=== PATIENT | female | born 1970 | race Caucasian/White ===

== ENCOUNTER → 2019-11-13 15:42 | Outpatient (CLI) | payer MEDICAID, SELFPAY ==
[2019-11-13 15:58] LABS: Basophils # 0.1 K/mm3 (0-0.2); Eosinophils # 0.1 K/mm3 (0.0-0.4); Eosinophils % 2.2 % (0.1-12.0); Hematocrit 42.1 % (37.0-47.0); Hemoglobin 14.4 g/dL (12.2-16.2); Lymphocytes # 1.9 K/mm3 (0.7-4.5); Lymphocytes % 32.2 % (10-50); Mean Corpuscular HGB Conc 34.2 g/dL (31.8-35.4); Mean Corpuscular Volume 90.6 fl (81-99); Mean Platelet Volume 9.2 fl (7.4-10.4); Monocytes # 0.2 K/mm3 (0.1-1.0); Monocytes % 3.5 % (1.7-9.3); Neutrophils # 3.6 K/mm3 (1.8-7.8); Neutrophils % 61.2 % (37.0-80.0); Platelet Count 300 K/mm3 (142-424); Red Blood Count 4.64 M/mm3 (4.20-5.40); Red Cell Distribution Width 13.4 % (11.5-17.5); White Blood Count 5.9 K/mm3 (4.8-10.8)
[2019-11-13 16:02] LABS: Alanine Aminotransferase 22 U/L (12-78); Albumin Level 4.3 g/dl (3.5-5.0); Albumin/Globulin Ratio 1.2 (1.1-1.8); Alkaline Phosphatase 91 U/L (38-126); Anion Gap 14.3 mEq/L (5-15); Aspartate Amino Transferase 31 U/L (14-36); Blood Urea Nitrogen 15 mg/dl (7-17); Calcium 9.8 mg/dl (8.4-10.2); Carbon Dioxide 27 mmol/L (22.0-30.0); Chloride 97 mmol/L (98-107); Chol/HDL Ratio 6.3 (1-3.5); Cholesterol 323 mg/dl (140-200); Estimated Glomerular Filt Rate 59 ml/min (>60); GFR (African American) 71 ML/MIN (>60); Globulin 3.5 g/dL (1.3-3.2); Glucose 396 mg/dl (74-100); HDL Cholesterol 51 mg/dl (40-60); Potassium 4.3 mmoL/L (3.5-5.1); Sodium 134 mmol/L (136-145); Total Protein,Serum 7.8 g/dl (6.3-8.2); Triglycerides 481 mg/dl (30-150)
[2019-11-13 16:12] LABS: Direct LDL Cholesterol 165.67 mg/dL (100-129)
[2019-11-13 16:18] LABS: 25-OH Vitamin D, Total 18.6 ng/mL (30-100)
[2019-11-13 16:19] LABS: Free T4 (Free Thyroxine) 1.31 ng/dl (0.78-2.19)
[2019-11-13 16:34] LABS: Thyroid Stimulating Hormone 1.87 uIU/mL (0.465-4.68)
[2019-11-13 17:30] LABS: Hemoglobin A1C 13.3 % (4.0-6.0)
== END ==
PROVIDERS: Visit Provider Emergency Medicine
DX: E11.9 Type 2 diabetes mellitus without complications (principal); E55.9 Vitamin D deficiency, unspecified; Z79.4 Long term (current) use of insulin
CPT/HCPCS: 80053; 80061; 82306; 83036; 84439; 84443; 85025

== ENCOUNTER → 2019-12-18 07:03 | Outpatient (CLI) | payer MEDICAID, SELFPAY ==
--- NOTE | 2019-12-18 07:05 | CA_ITS ---
APPROVED REPORT Pantomimist: EDWIN Laterality: Bilateral Indications: CP, DM, HTN, hyperlipidemia, WARREN Risk Factors Hypertension: Hyperlipidemia Diabetes Doppler Spectral Velocity Analysis ECA (R) 93.40/17.10 cm/s ECA (L) 108.00/17.10 cm/s dICA (R) 68.40/28.30 cm/s dICA (L) 64.30/21.40 cm/s Griselda (R) 73.80/30.50 cm/s Griselda (L) 70.30/28.30 cm/s pICA (R) 47.60/17.10 cm/s pICA (L) 67.70/19.70 cm/s dCCA (R) 78.10/25.10 cm/s dCCA (L) 84.80/20.60 cm/s pCCA (R) 74.30/20.90 cm/s pCCA (L) 95.10/23.10 cm/s Vert (R) 66.00/24.00 cm/s Vert (L) 52.30/14.60 cm/s ICA/CCA 0.95 ICA/CCA 0.83 Findings Duplex evaluation demonstrates stenosis of the right proximal internal carotid artery <20% Duplex evaluation demonstrates stenosis of the left proximal internal carotid artery <20% Conclusion Duplex evaluation demonstrates stenosis of the right proximal internal carotid artery <20% Duplex evaluation demonstrates stenosis of the left proximal internal carotid artery <20% Electronically signed by : Frandy Mandel MD 12/18/2019 16:41:16
--- NOTE | 2019-12-18 07:05 | CA_ITS ---
APPROVED REPORT EXAM: Comprehensive 2D, Doppler, and color-flow Echocardiogram Photography Intern: Marycarmen Horowitz RT(R) Ht: 5 ft 2 in Wt: 170lbs BSA: 1.78 BP: 121/76 mmHg Indications: CP, MURMUR, HTN, DM, WARREN, hyperlipidemia 2D Dimensions LVOT 1.92 cm (M/F) 1.5-2.5 M-Mode Dimensions RVDd 2.32 cm (0.9-2.6) LVDd 3.64 cm (3.5-5.7) LVDs 2.86 cm (3.5-5.7) IVSd 1.32 cm (0.6-1.1) PWd 0.96 cm (0.6-1.1) EF (Teich) 44.40% FS 21.40% EDV (Teich) 55.90 mL ESV (Teich) 31.10 mL LV Diastology E/A Ratio 0.78 Mitral Valve MV A Velocity 97.00 (40-130 cm/s) Left Ventricle Left atrium is mildly enlarged, left ventricle is normal size, mild concentric left ventricular hypertrophy, visually estimated ejection fraction 55% with no regional wall motion abnormality, grade 1 diastolic dysfunction seen with tissue Doppler evidence of raise left atrial pressure. Right Ventricle Right atrium and right ventricle are normal size and contractility. Aortic Valve Aortic valve is minimally thickened and fibrosed. There is no aortic stenosis or aortic insufficiency. Mitral Valve Mitral valve is grossly normal, there is mild mitral regurgitation. Tricuspid Valve Tricuspid valve is grossly normal, there is mild tricuspid regurgitation, tricuspid regurgitation jet velocity is inadequate for calculation of the right ventricular systolic pressure. Pulmonic Valve Pulmonic valve is poorly visualized. Great Vessels Aortic root is normal size. Pericardium No significant pericardial effusion noted. Conclusion 1. Mildly enlarged left atrium, normal left ventricular size, mild concentric left ventricular hypertrophy, visually estimated ejection fraction 55% with no regional wall motion abnormality, grade 1 diastolic dysfunction seen with tissue Doppler evidence of raise left atrial pressure. 2. Mild mitral and tricuspid regurgitation. 3. No significant pericardial effusion noted. Electronically signed by : Shane Soto, 12/18/2019 13:22:44
--- NOTE | 2019-12-18 07:09 | CA_ITS ---
APPROVED REPORT Exam: Pharmacologic Technologist: Peg Mera, Ht: 5 ft 2 in Wt: 172 lbs BSA: 1.79 m2 HR: 84 bpm BP: 175/97 mmHg Rhythm: NSR,NON-SPECIFIC ST-T ABNS INFERIORLY 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: Diabetic ??? Insulin, HTN, Hyperlipidemia Medications: Gabapentin,,,,, Atorvastatin,,,,, Vit D3,,,,, Diclofenac,,,,, LanTUS,,,,, Humalog,,,,, Allergies: ASA,LATEX Cardiac Risk Factors: HTN, Hyperlipidemia, Diabetes (insulin), FHX of CAD Stress Test Details Test: LEXISCAN HR Resting HR: 90 bpm Max Heart Rate (APMHR): 170 bpm Max HR Achieved: 109 bpm Target HR (85% APMHR): 144 bpm % of APMHR: 64 Recovery HR: 92 bpm BP Resting BP: 175.0/97.0 mmHg Max BP: 175.0/97.0 mmHg Recovery BP: 157.0/87.0 mmHg ECG Resting ECG: NSR,NON-SPECIFIC ST-T ABNS INFERIORLY Clinical Exercise duration: 04:14 min Highest Stage Achieved: Stress ECG Conclusion DURING INFUSION PATIENT HAD MALAISE AND HEADACHE. NO CHEST PAIN. NO ARRHYTHMIAS/ECTOPY. NO SIGNIFICANT ST-T CHANGES. UNREMARKABLE LEXISCAN STRESS. MYOVIEW IMAGES REPORTED SEPARATELY. Test Summary . . Cardiolite injected . . . . Stop exercise at 04:14 . . . . Electronically signed by : Shane Soto, 12/18/2019 12:16:33
--- NOTE | 2019-12-18 07:09 | NM_ITS ---
APPROVED REPORT Exam: Nuclear Stress Test Indication: C.P., DM, HYPERLIPIDEMIA, HTN, SOB, MURMUR Patient Location: Outpatient Stress Tech: Cherry Mera MD Tech:CALLIE Bah RT(R)(N) Ht: 5 ft 2 in Wt: 170 lbs Bra Size: 38D HR: 84 bpm BP: 175/97 mmHg BSA: 1.78 m2 BMI: 31.0 History: C.P., DM, HYPERLIPIDEMIA, HTN, SOB, MURMUR Procedure: Patient received a 0.4 mg of intravenous Lexiscan, resting heart rate 84 bpm, resting blood pressure 175/97 mmHg, with Lexiscan maximum heart rate achived was 108 bpm which is Less than 85 % of the maximum predicted heart rate and blood pressure was 154/95 mmHg. With Lexiscan, patient denied any complaint of chest pain. Electrocardiogram Resting electrocardiogram showed sinus rhythm nonspecific ST-T changes, with Lexiscan there is less than 1.[address] segment depression noted from the baseline EKG. The EKG portion of the Lexiscan Myoview is nondiagnostic. Cardiac Stress and Resting SPECT Images: Cardiac Stress and Resting SPECT images were obtained using technetium 99m Myoview 31.7 mCi stress and 9.83 mCi at rest. Gated SPECT with analysis of segmental wall motion and calculation of the ejection fraction also done. Cardiac stress and resting SPECT images show a mild fixed defect in the anterior wall which is likely secondary to soft tissue attenuation, no reversible ischemia seen, however there is transient ischemic dilatation of the left ventricle seen raising the concerns for presence of balanced ischemia. Computer derived ejection fraction is 50% with no regional wall motion abnormality, right ventricle is normal size and contractility. Conclusion: 1. The EKG portion of the Lexiscan Myoview is nondiagnostic. 2. No scintigraphic evidence of reversible ischemia seen, computer derived ejection fraction is 50% with no regional wall motion abnormality, right ventricle is normal size and contractility. There is transient ischemic dilatation of the left ventricle seen, raising concern for presence of balanced ischemia. 3. Abnormal Lexiscan Myoview study. Electronically signed by : Shane Soto, 12/18/2019 12:24:43
== END ==
PROVIDERS: PCP Emergency Medicine; Visit Provider Internal Medicine Cardiovascular Disease
DX: R07.9 Chest pain, unspecified (principal); R06.00 Dyspnea, unspecified; R01.1 Cardiac murmur, unspecified; E10.9 Type 1 diabetes mellitus without complications; E78.5 Hyperlipidemia, unspecified; G62.9 Polyneuropathy, unspecified; H35.00 Unspecified background retinopathy; I10 Essential (primary) hypertension; N28.9 Disorder of kidney and ureter, unspecified; Z79.4 Long term (current) use of insulin
CPT/HCPCS: 78452; 93017; 93306; 93880; A9502; J2785

== ENCOUNTER → 2019-12-21 08:20 | Outpatient (CLI) | payer SELFPAY | PROVIDERS: PCP Emergency Medicine; Visit Provider Internal Medicine Cardiovascular Disease | DX: Z13.6 Encounter for screening for cardiovascular disorders (principal) ==

== ENCOUNTER → 2019-12-29 14:24 | Outpatient (CLI) | payer SELFPAY ==
--- NOTE | 2019-12-29 14:28 | CT_ITS ---
PROCEDURE: CT HEART W CALCIUM SCORE CLINICAL HISTORY: SCREENING COMPARISON: No exams were available for comparison TECHNIQUE: Axial images obtained with sagittal and coronal reformats. All CT scans at the facility use one or more dose reduction, viz: automated exposure control, ma/kV adjustment per patient size (including targeted exams where dose is matched to indication, i.e. head), or iterative reconstruction technique. FINDINGS: The coronary artery calcium score is 05/09/1983 indicating extensive calcific plaque burden with very cardiovascular disease risk. Incidental note is made of minimal pericardial thickening anteriorly. There is some mild scarring or atelectatic change in bases. IMPRESSION: Extensive calcific plaque burden with very cardiovascular disease risk Dictated by: Frandy Mandel MD 12/30/2019 06:51 Frandy Mandel MD in [place] 12/30/2019 06:51
== END ==
PROVIDERS: PCP Emergency Medicine; Visit Provider Internal Medicine Cardiovascular Disease
DX: I10 Essential (primary) hypertension (principal); Z82.49 Family history of ischemic heart disease and other diseases of the circulatory system
CPT/HCPCS: 75571

== ENCOUNTER 2019-12-31 08:30 | Day surgery (SDC) | payer MEDICAID, SELFPAY ==
[2019-12-31] VITALS (11 sets, daily range): BP systolic 89–152; BP diastolic 50–94; PULSE 77–98; RESP 16–18; TEMP 36.6; O2SAT 89–99; BMI 31.1
--- NOTE | 2019-12-31 | IR_ITS ---
APPROVED REPORT Patient Location: Outpatient PROCEDURES Left heart catheterization Left ventriculogram Selective coronary angiogram INDICATION High risk abnormal Myoview, Angina pectoris Informed consent was obtained prior to the procedure. COMPLICATIONS NONE Estimated Blood Loss: LESS THAN 10 ML TECHNIQUE One percent lidocaine used to anesthetize the right anterior aspect of the wrist. The right radial artery was accessed via the Seldinger technique. A 6 [place] sheath was placed in the right radial artery. 2.5 mg of verapamil, 800 mcg of nitroglycerin, 1mg Lidocaine and 5000 U Heparin were given through the arterial sheath. The trap catheter was also used to perform left heart catheterization, left ventriculogram and selective coronary angiogram. At the end of the procedure the sheath was removed good hemostasis was achieved using Traclet band, patient was transferred to the postop holding area in stable condition. ANGIOGRAPHIC RESULTS The left main artery Has a distal 30% stenosis The left anterior descending artery Has proximal 50% stenosis followed by mid vessel long 70% stenoses. The entire vessel was small caliber. First diagonal artery has proximal greater than 90% stenosis followed by mid vessel 90% stenosis The circumflex artery Nondominant yet still supplies 2 large obtuse marginal arteries. The proximal circumflex artery has 50% tandem lesions. The large first obtuse marginal artery has a long proximal concentric 90% stenosis. The right coronary artery Is a dominant vessel and has proximal 30% stenosis followed by mid vessel 60% stenosis with 10% diffuse luminal irregularities. Distally a large posterior descending artery has mid vessel 70% stenosis. The [place] ventriculogram reveals Normal 65% The left ventricular end-diastolic pressure 20 mmHg IMPRESSION Severe three-vessel coronary artery disease Normal ejection fraction Elevated LVEDP PLAN 1. Patient requires surgical evaluation 2. Aggressive risk factor modification 3. LDL less than 55 Electronically signed by : Victor M Fan, 12/31/2019 10:34:45
[2019-12-31 09:12] LABS: Basophils % 0.4 % (0.1-2.0); Eosinophils # 0.2 K/mm3 (0.0-0.4); Eosinophils % 3.5 % (0.1-12.0); Hematocrit 39.3 % (37.0-47.0); Hemoglobin 13.6 g/dL (12.2-16.2); Lymphocytes # 1.9 K/mm3 (0.7-4.5); Lymphocytes % 27.7 % (10-50); Mean Corpuscular HGB Conc 34.6 g/dL (31.8-35.4); Mean Corpuscular Hemoglobin 30.8 pg (27.0-31.2); Mean Corpuscular Volume 89.1 fl (81-99); Mean Platelet Volume 8.3 fl (7.4-10.4); Monocytes # 0.3 K/mm3 (0.1-1.0); Monocytes % 4.7 % (1.7-9.3); Neutrophils # 4.4 K/mm3 (1.8-7.8); Neutrophils % 63.7 % (37.0-80.0); Platelet Count 226 K/mm3 (142-424); Red Blood Count 4.41 M/mm3 (4.20-5.40); Red Cell Distribution Width 13.4 % (11.5-17.5); White Blood Count 6.9 K/mm3 (4.8-10.8)
[2019-12-31 09:17] LABS: Anion Gap 16.5 mEq/L (5-15); Blood Urea Nitrogen 22 mg/dl (7-17); Calcium 9.5 mg/dl (8.4-10.2); Carbon Dioxide 26 mmol/L (22.0-30.0); Chloride 100 mmol/L (98-107); Creatinine Clearance Estimated 82 mL/min (50-200); Estimated Glomerular Filt Rate 59 ml/min (>60); GFR (African American) 71 ML/MIN (>60); Glucose 307 mg/dl (74-100); Potassium 4.5 mmoL/L (3.5-5.1); Sodium 138 mmol/L (136-145)
[2019-12-31 09:43] LABS: Coronavirus 19 IgG Antibody Negative (Negative); Coronavirus 19 IgM Antibody Negative (Negative)
== END 2019-12-31 13:38 | disposition home or self-care (01) ==
LOC: CATHLAB 08:33
PROVIDERS: PCP Emergency Medicine; Visit Provider Internal Medicine
DX: I25.118 Atherosclerotic heart disease of native coronary artery with other forms of angina pectoris (principal); R94.30 Abnormal result of cardiovascular function study, unspecified; I10 Essential (primary) hypertension; Z88.8 Allergy status to other drugs, medicaments and biological substances; Z79.4 Long term (current) use of insulin; Z79.02 Long term (current) use of antithrombotics/antiplatelets; Z79.899 Other long term (current) drug therapy; E11.319 Type 2 diabetes mellitus with unspecified diabetic retinopathy without macular edema; E11.42 Type 2 diabetes mellitus with diabetic polyneuropathy
CPT/HCPCS: 80048; 85025; 86328; 93458; 99152; 99153; C1725; C1769; J1644; Q9967

== ENCOUNTER → 2020-01-08 11:53 | Outpatient (CLI) | payer MEDICAID, SELFPAY ==
--- NOTE | 2020-01-08 11:57 | CT_ITS ---
PROCEDURE: CT HEAD/BRAIN WO CON CLINICAL INDICATION: RUE weakness, CVA symptoms COMPARISON: No exams were available for comparison TECHNIQUE: Axial images obtained. All CT scans at the facility use one or more dose reduction, viz: automated exposure control, ma/kV adjustment per patient size (including targeted exams where dose is matched to indication, i.e. head), or iterative reconstruction technique. FINDINGS: No midline shift, mass effect, intracranial hemorrhage, hydrocephalus, or extra-axial fluid collection is evident. There are mild periventricular hypodensities consistent with mild chronic ischemic white matter changes. There is no significant cortical atrophy. The calvarium has an unremarkable appearance. No mastoid effusion. No sinus air-fluid level. IMPRESSION: Minor chronic ischemic white matter changes, no acute intracranial pathology noted Dictated by: Dr. Robert Taylor MD 01/08/2020 12:39 Dr. Robert Taylor MD in [place] 01/08/2020 12:39
== END ==
PROVIDERS: PCP Emergency Medicine; Visit Provider Physician Assistant
DX: R29.898 Other symptoms and signs involving the musculoskeletal system (principal); R29.90 Unspecified symptoms and signs involving the nervous system
CPT/HCPCS: 70450

== ENCOUNTER → 2020-01-15 07:50 | Outpatient (CLI) | payer MEDICAID, SELFPAY ==
--- NOTE | 2020-01-15 07:50 | MM_ITS ---
PROCEDURE: MM DIG SCREENING MAMM BI W/CAD Digital Breast Tomosynthesis Included CLINICAL INDICATION: screening There is a history of breast cancer patient's maternal grandmother. 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 COMPARISON: MG Screening Mamm w/cad from 01/27/2019 TECHNIQUE: Standard CC and MLO images and 3D Tomosynthesis was obtained. R2 CAD reviewed. FINDINGS: Post primarily of fat with minimal scattered fibroglandular densities. There is a stable tiny benign-appearing nodular density near the axillary tail left breast. There is no new or suspicious lesion in either breast and no suspicious microcalcifications. IMPRESSION: Fibrofatty parenchyma with no suspicious lesions seen BI-RAD Category: 2 Benign Finding(s) FOLLOW-UP: 1YR 1 Year Follow-up (A letter has been sent to the patient regarding results of the study.) Dictated by: Dr. Robert Taylor MD 01/21/2020 20:06 Dr. Robert Taylor MD in [place] 01/21/2020 20:06
== END ==
PROVIDERS: PCP Emergency Medicine; Visit Provider Emergency Medicine
DX: Z12.31 Encounter for screening mammogram for malignant neoplasm of breast (principal)
CPT/HCPCS: 77063; 77067

== ENCOUNTER 2023-11-19 16:55 | Outpatient (CLI) | payer OTHER, SELFPAY ==
[2023-11-19 18:10] LABS: Alanine Aminotransferase 21 U/L (12-78); Albumin Level 4.8 g/dl (3.5-5.0); Albumin/Globulin Ratio 1.3 (1.1-1.8); Alkaline Phosphatase 63 U/L (38-126); Anion Gap 17.2 mEq/L (5-15); Aspartate Amino Transferase 27 U/L (14-36); Bilirubin,Total 0.6 mg/dl (0.2-1.3); Blood Urea Nitrogen 28 mg/dl (7-17); Calcium 9.9 mg/dl (8.4-10.2); Carbon Dioxide 22 mmol/L (22.0-30.0); Chloride 106 mmol/L (98-107); Chol/HDL Ratio 5.5 (1-3.5); Cholesterol 285 mg/dl (140-200); Estimated Glomerular Filt Rate 23 ml/min (>60); GFR (African American) 28 ML/MIN (>60); Globulin 3.7 g/dL (1.3-3.2); Glucose 264 mg/dl (74-100); HDL Cholesterol 52 mg/dl (40-60); Potassium 4.2 mmoL/L (3.5-5.1); Sodium 141 mmol/L (136-145); Total Protein,Serum 8.5 g/dl (6.3-8.2); Uric Acid 7.3 mg/dl (2.5-6.2)
[2023-11-19 18:11] LABS: Triglycerides 437 mg/dl (30-150)
[2023-11-19 18:21] LABS: C-Reactive Protein 1.1 mg/L (0-4)
[2023-11-19 18:26] LABS: Free T4 (Free Thyroxine) 1.16 ng/dl (0.78-2.19)
[2023-11-19 18:41] LABS: Thyroid Stimulating Hormone 1.22 uIU/mL (0.465-4.68)
[2023-11-19 19:00] LABS: Vitamin B12 307 pg/mL (239-931)
[2023-11-19 19:01] LABS: Creatinine,Urine Random 239 mg/dL (Not Estab.)
[2023-11-19 19:03] LABS: Hemoglobin A1C 8.1 % (4.0-6.0)
[2023-11-19 19:13] LABS: Microalbumin/Creatinine Ratio 69.5
== END 2023-11-19 23:59 | disposition home or self-care (01) ==
LOC: LAB 16:58
PROVIDERS: Visit Provider Hospitalist
DX: E11.69 Type 2 diabetes mellitus with other specified complication (principal); E78.5 Hyperlipidemia, unspecified; N18.30 Chronic kidney disease, stage 3 unspecified; Z79.85 Long-term (current) use of injectable non-insulin antidiabetic drugs; Z79.4 Long term (current) use of insulin
CPT/HCPCS: 36415; 80053; 80061; 82043; 82306; 82570; 82607; 83036; 84439; 84443; 84550; 86140

== ENCOUNTER 2024-01-31 20:32 | Emergency (ER) | payer OTHER, SELFPAY ==
[2024-01-31] VITALS (7 sets, daily range): BP systolic 90–137; BP diastolic 57–92; PULSE 88–104; RESP 13–20; TEMP 36.9; O2SAT 96–98; BMI 25.1
--- NOTE | 2024-01-31 20:50 | ED_ITS ---
Discharge Plan Disposition Patient Disposition: Home, Self-Care Condition: Good Prescriptions Prescriptions: New ondansetron 4 mg tablet,disintegrating 4 mg PO Q6H PRN (Reason: nausea and vomiting) 5 Days Qty: 30 0RF cefdinir 300 mg capsule 300 mg PO BID 10 Days Qty: 20 0RF No Action insulin lispro [Humalog KwikPen Insulin] 100 unit/mL insulin pen 1 sliding scale dose SUB-Q .S S before meals Ozempic 2 mg/dose (8 mg/3 mL) pen injector 2 mg SQ QWEEK Patient Comments: DIAL AND INJECT 2MG UNDER THE SKIN ONCE WEEKLY sertraline 50 mg tablet 50 mg PO DAILY gabapentin 800 mg tablet 800 mg PO BID 30 Days Qty: 60 1RF insulin aspart U-100 100 unit/mL (3 mL) insulin pen 26 unit SQ BID sodium chloride 1,000 mg tablet,soluble 1,000 mg PO BID PRN (Reason: low BP) Qty: 60 0RF Referrals Follow up/Referrals: Provider,Referral, MD [Referring] - See instructions Activity Restrictions/Add. Instructions Additional Instructions/Restrictions: Take the antibiotics twice per day for the urinary tract infection. If your symptoms do not resolve after 3 full days of antibiotics, please follow-up with your primary care provider. Take the Zofran as needed every 6 hours for nausea or vomiting. Due to your history of type 1 diabetes, is important to stay adequately hydrated and accurately track your blood sugars. Please return to ED if your symptoms worsen, change in location, change in severity, new symptoms develop or if you become concerned for your health. Clinical Impressions Clinical Impression: Gastroenteritis, History of type 1 diabetes mellitus Acute cystitis Qualifiers: Hematuria presence: with hematuria Qualified Code(s): N30.01 - Acute cystitis with hematuria Instructions Patient Instructions: DI for Acute Cystitis, DI for Nausea -- Adult, Nausea and Vomiting-Adult Print Language Print Language: Mozambican Discharge ED Provider: Arina Gasca Adult HPI General Chief complaint: Nausea/Vomiting/Diarrhea Stated complaint: n/v, weak Time Seen by Provider: 01/31/24 20:33 Mode of Arrival: EMS Source of Information: Patient and EMS Limitations: No Limitations Description of Symptoms (Recalled from ER Triage Doc. by RN): Pt presents to ED via EMS for N/V X 1 day. Pt is a diabetic and is also on the liver transplant list. Pt states she's had a fever at home and took ibuprofen and tylenol. Pt is afebrile here. Pt has pain in her kidneys and rates that pain 10/10. Pt states she does not want pain medicine as they make her feel worse. Pt is A&O*4 at this time. History of Present Illness HPI narrative: Janay Head is a 53 y/o female presenting with nausea and vomiting. Patient states she had a fever of 102 ?F today. She feels that her fever broke prior to arrival as now she is all sweaty. Patient had taken Motrin earlier today. Patient states she had 2 episodes of vomiting that were green in appearance and had no blood in them. Patient complaining of bilateral flank pain and is concerned that her kidneys are failing. Patient notes difficulty urinating but has not noticed hematuria or experienced dysuria. Patient denies changes in her bowel movements, shortness of breath, chest pain, headache, rash. Related Data Home Medications ?Medication ?Instructions ?Recorded ?Confirmed insulin lispro 100 unit/mL 1 sliding scale dose SQ .S S 12/03/23 12/03/23 subcutaneous pen (Humalog KwikPen before meals (U-100) Insulin) semaglutide 2 mg/dose (8 mg/3 mL) 2 mg SQ QWEEK 12/03/23 12/03/23 subcutaneous pen injector (Ozempic) sertraline 50 mg tablet 50 mg PO DAILY 12/03/23 12/03/23 insulin aspart U-100 100 unit/mL 26 unit SQ BID 12/04/23 12/04/23 (3 mL) subcutaneous pen Previous Rx's ?Medication ?Instructions ?Recorded gabapentin 800 mg tablet 800 mg PO BID 30 days #60 tabs 12/04/23 sodium chloride 1,000 mg soluble 1,000 mg PO BID PRN low BP #60 tabs 12/16/23 tablet cefdinir 300 mg capsule 300 mg PO BID 10 days #20 caps 01/31/24 ondansetron 4 mg disintegrating 4 mg PO Q6H PRN nausea and 01/31/24 tablet vomiting 5 days #30 tabs Allergies Allergy/AdvReac Type Severity Reaction Status Date / Time atorvastatin Allergy Severe lowers Verified 12/12/23 10:16 blood pressure aspirin [ASPIRIN] Allergy Intermediate I-HIVES Verified 12/03/23 15:50 latex [LATEX] Allergy Unknown RASH, HIVES Verified 12/03/23 15:50 atorvastatin Allergy Severe lowers bp Uncoded 12/12/23 10:16 [facility] Disclaimer: The information contained in this section may have been updated after the patient was seen, as this information can be updated by other users. 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 (Updated 02/01/24 @ 00:04 by Arina Gasca MD) Angina pectoris Social History Smoking Status: Unknown if ever smoked alcohol intake: never substance use type: denies use current occupational status: unemployed Travel in the last 8 weeks: None ROS Obtained: Yes All systems reviewed & no additional complaints except as documented Physical Exam General General appearance: alert and in no apparent distress Eye Eye exam: Present EOMI; Absent scleral icterus ENT ENT exam: Present normal exam Neck Neck exam: Present full ROM Chest Chest inspection: Present symmetric chest wall rise Respiratory Respiratory exam: Present normal lung sounds bilaterally; Absent respiratory distress Cardiovascular Cardiovascular exam: Present regular rate and normal rhythm Abdominal Exam Abdominal exam: Present soft; Absent distention or tenderness Back Exam Back exam: Present full ROM, CVA tenderness (R) and CVA tenderness (L) Neurological Exam Neurological exam: Present alert and oriented X3 Skin Skin exam: Present warm and dry Medical Decision Making Medical Records Screening: Per USPSTF and CDC recommendations, given the prevalence of disease in our region, it is our hospital?s policy to screen for HIV and viral Hepatitis for all patients aged 18 and over and those with ongoing risk factors. Nick Inquiry Pt receiving controlled substance: No Vital Signs: 01/31/24 20:32 01/31/24 21:00 01/31/24 21:30 Temperature 98.5 F Temperature Source Oral Pulse Rate 96 H 93 H Pulse Rate [Right] 104 H Respiratory Rate 14 16 19 Blood Pressure 90/66 L 98/57 L Blood Pressure [Right Arm] 124/87 Blood Pressure Mean 74 64 Blood Pressure Mean [Right Arm] 99 02 Sat by Pulse Oximetry 98 97 97 Oxygen Delivery Method Room Air Room Air Room Air 01/31/24 22:00 01/31/24 22:41 01/31/24 23:00 Temperature Temperature Source Pulse Rate 88 95 H 95 H Pulse Rate [Right] Respiratory Rate 20 13 15 Blood Pressure 113/61 126/84 137/92 H Blood Pressure [Right Arm] Blood Pressure Mean Blood Pressure Mean [Right Arm] 02 Sat by Pulse Oximetry 96 97 97 Oxygen Delivery Method 01/31/24 23:30 02/01/24 00:08 Temperature 97.8 F Temperature Source Pulse Rate 90 92 H Pulse Rate [Right] Respiratory Rate 18 16 Blood Pressure 118/81 130/85 Blood Pressure [Right Arm] Blood Pressure Mean Blood Pressure Mean [Right Arm] 02 Sat by Pulse Oximetry 96 Oxygen Delivery Method Room Air Lab Data Lab Results 01/31/24 20:33: WBC 10.6, RBC 4.67, Hgb 13.7, Hct 41.2, MCV 88.3, MCH 29.3, MCHC 33.2, RDW 13.8, Plt Count 222, MPV 7.8, Neut % (Auto) 82.7 H, Lymph % (Auto) 11.5, Ritchie % (Auto) 4.5, Eos % (Auto) 0.8, Baso % (Auto) 0.4, Neut # (Auto) 8.7 H, Lymph # (Auto) 1.2, Ritchie # (Auto) 0.5, Eos # (Auto) 0.1, Baso # (Auto) 0.0, Sodium 136, Potassium 3.5, Chloride 106, Carbon Dioxide 21 L, Anion Gap 12.5, B UN 30 H, Creatinine 1.70 H, Estimated Creat Clear 38, Estimated GFR 31 L, Est GFR ( Amer) 38 L, Glucose 169 H, Calcium 9.0, Total Bilirubin 0.7, AST 29, ALT 22, Alkaline Phosphatase 49, Total Protein 8.4 H, Albumin 4.8, Globulin 3.6 H, Albumin/Globulin Ratio 1.3, Lipase 194 01/31/24 23:42: Urine Color Yellow, Urine Appearance Clear, Urine pH 5.5, Ur Specific [place] 1.020, Urine Protein 1+ A, Urine Glucose (UA) 2+, Urine Ketones Negative, Urine Blood Trace-i, Urine Nitrate Negative, Urine Bilirubin Negative, Urine Urobilinogen 0.2, Ur Leukocyte Esterase 2+ A, Urine RBC Occasional, Urine WBC Tntc, Ur Squamous Epith Cells 20-50, Urine Bacteria 4+ 01/31/24 20:33 01/31/24 20:33 Orders (Tests/Meds): ED MEDICATIONS Discontinued Medications Generic Name Dose Route Start Last Admin Trade Name Freq PRN Reason Stop Dose Admin Lactated Ringer's 1,000 mls @ 999 mls/hr 01/31/24 20:47 01/31/24 20:52 Lactated Ringer's 1000 Ml Bag IV 01/31/24 21:47 999 mls/hr .Q1H1M ONE Administration Ondansetron HCl 4 mg 01/31/24 20:47 01/31/24 20:51 Ondansetron 4mg/2ml Vial IV 01/31/24 20:48 4 mg ONCE ONE Administration ORDERS Category Date Time Status CBC w/Auto Diff [Complete Blood Count Auto Diff] Stat Lab 01/31/24 20:33 Completed CMP [Comprehensive Metabolic Panel] Stat Lab 01/31/24 20:33 Completed Lipase Stat Lab 01/31/24 20:33 Completed Urinalysis and Microscopic Stat Lab 01/31/24 23:42 Completed Urine Culture Stat Micro 01/31/24 23:42 Received Medical Decision Narrative: Patient is a 53-year-old female presenting with fever and vomiting. Differential diagnosis includes was not limited to, gastroenteritis, ACS, sepsis, DKA, acute cystitis, pyelonephritis, among others. It should be noted the patient's past medical history is significant for type 1 diabetes, renal insufficiency, hypertension which all increase her risk for mortality and increased the complexity of evaluation and management. On initial evaluation, patient is ill-appearing however nontoxic with stable vital signs and is afebrile. Based on exam and history, patient given IV fluids, antiemetics with a laboratory evaluation. Laboratory evaluation demonstrates no leukocytosis, anemia, thrombocytopenia. Creatinine 1.7 which is decreased from 2.2 in mid November. No hypoglycemia or significant hyperglycemia. Lipase within normal limits. Urinalysis significant for 3+ leukocyte esterase, no nitrates. Upon reevaluation, patient has been sleeping and in no distress without the use of pain medication. Patient updated with regards to her findings today and advised that a prescription for Zofran as well as antibiotics for the acute cystitis will be sent to the pharmacy. Patient's symptoms likely secondary to the acute UTI. Patient remained afebrile and hemodynamically stable while in the emergency department. Patient was able to ambulate and tolerate p.o. intake prior to discharge. Return precautions given. Arina Gasca MD PGY-3, Emergency Medicine Critical Care Critical Care Time Critical Care Time: No
[2024-01-31] MEDS: ONDANSETRON 4MG/2ML VIAL 4 MG IV (20:51)
[2024-01-31] MEDS: LACTATED RINGERS 1000ML 1,000 ML 999 ML IV (20:52)
[2024-01-31 20:58] LABS: Albumin Level 4.8 g/dl (3.5-5.0); Chloride 106 mmol/L (98-107); Potassium 3.5 mmoL/L (3.5-5.1); Sodium 136 mmol/L (136-145)
[2024-01-31 21:00] LABS: Blood Urea Nitrogen 30 mg/dl (7-17); Creatinine Clearance Estimated 38 mL/min (50-200); Estimated Glomerular Filt Rate 31 ml/min (>60); GFR (African American) 38 ML/MIN (>60)
[2024-01-31 21:01] LABS: Alanine Aminotransferase 22 U/L (12-78); Albumin/Globulin Ratio 1.3 (1.1-1.8); Alkaline Phosphatase 49 U/L (38-126); Anion Gap 12.5 mEq/L (5-15); Aspartate Amino Transferase 29 U/L (14-36); Bilirubin,Total 0.7 mg/dl (0.2-1.3); Carbon Dioxide 21 mmol/L (22.0-30.0); Globulin 3.6 g/dL (1.3-3.2); Glucose 169 mg/dl (74-100); Lipase 194 U/L (23-300); Total Protein,Serum 8.4 g/dl (6.3-8.2)
[2024-01-31 21:02] LABS: Basophils % 0.4 % (0.1-2.0); Eosinophils # 0.1 K/mm3 (0.0-0.4); Eosinophils % 0.8 % (0.1-12.0); Hematocrit 41.2 % (37.0-47.0); Hemoglobin 13.7 g/dL (12.2-16.2); Lymphocytes # 1.2 K/mm3 (0.7-4.5); Lymphocytes % 11.5 % (10-50); Mean Corpuscular HGB Conc 33.2 g/dL (31.8-35.4); Mean Corpuscular Hemoglobin 29.3 pg (27.0-31.2); Mean Corpuscular Volume 88.3 fl (81-99); Mean Platelet Volume 7.8 fl (7.4-10.4); Monocytes # 0.5 K/mm3 (0.1-1.0); Monocytes % 4.5 % (1.7-9.3); Neutrophils # 8.7 K/mm3 (1.8-7.8); Neutrophils % 82.7 % (37.0-80.0); Platelet Count 222 K/mm3 (142-424); Red Blood Count 4.67 M/mm3 (4.20-5.40); Red Cell Distribution Width 13.8 % (11.5-17.5); White Blood Count 10.6 K/mm3 (4.8-10.8)
[2024-01-31 23:48] LABS: Microscopic, Urine URINE MICROSCOPIC (MICROSCOPIC)
[2024-01-31 23:49] LABS: Appearance,Urine CLEAR (Clear); Bilirubin,Urine Negative (Negative); Blood, Urine TRACE-I (Negative); Color,Urine YELLOW (Yellow); Glucose,Urine (UA) 2+ (Negative); Ketones,Urine Negative (Negative); Leukocyte Esterase,Urine 2+ (Negative); Nitrate,Urine Negative (Negative); PH,Urine 5.5 (5.0-8.5); Protein,Urine 1+ (Negative); Urobilinogen,Urine 0.2 EU/dl (0.2)
[2024-01-31 23:58] LABS: Bacteria,Urine 4+ /lpf; RBC,Urine Occasional #/hpf (0-3); Squamous Epithelial Cell,Urine 20-50 #/hpf (0-5); WBC,Urine TNTC #/hpf (0-3)
[2024-02-01 00:08] VITALS: BP 130/85; PULSE 92; RESP 16; TEMP 36.6; O2SAT 99
--- NOTE | 2024-02-04 08:18 | PC.NURSE ---
urine culture final results discussed with , pt dc with cefdinir, ntd
== END 2024-02-01 00:12 | disposition home or self-care (01) ==
PROVIDERS: Emergency Provider Student in an Organized Health Care Education/Training Program; PCP Internal Medicine
DX: N39.0 Urinary tract infection, site not specified (principal); B96.1 Klebsiella pneumoniae [K. pneumoniae] as the cause of diseases classified elsewhere; R11.2 Nausea with vomiting, unspecified; R50.9 Fever, unspecified; M54.59 Other low back pain; R10.30 Lower abdominal pain, unspecified; K52.9 Noninfective gastroenteritis and colitis, unspecified; E10.9 Type 1 diabetes mellitus without complications; Z79.4 Long term (current) use of insulin; Z79.84 Long term (current) use of oral hypoglycemic drugs
CPT/HCPCS: 80053; 81001; 83690; 85025; 87086; 87088; 87186; 96361; 96374; 99284; J2405; J7120

== ENCOUNTER 2024-03-11 16:10 | Outpatient (CLI) | payer OTHER, SELFPAY ==
[2024-03-11 18:30] LABS: Basophils # 0.1 K/mm3 (0-0.2); Basophils % 0.9 % (0.1-2.0); Eosinophils # 0.1 K/mm3 (0.0-0.4); Eosinophils % 1.8 % (0.1-12.0); Hematocrit 36.5 % (37.0-47.0); Hemoglobin 12.6 g/dL (12.2-16.2); Lymphocytes # 1.9 K/mm3 (0.7-4.5); Lymphocytes % 31.8 % (10-50); Mean Corpuscular HGB Conc 34.5 g/dL (31.8-35.4); Mean Corpuscular Hemoglobin 29.5 pg (27.0-31.2); Mean Corpuscular Volume 85.5 fl (81-99); Mean Platelet Volume 7.6 fl (7.4-10.4); Monocytes # 0.2 K/mm3 (0.1-1.0); Monocytes % 3.9 % (1.7-9.3); Neutrophils # 3.8 K/mm3 (1.8-7.8); Neutrophils % 61.5 % (37.0-80.0); Platelet Count 213 K/mm3 (142-424); Red Blood Count 4.27 M/mm3 (4.20-5.40); Red Cell Distribution Width 14.8 % (11.5-17.5); White Blood Count 6.1 K/mm3 (4.8-10.8)
[2024-03-11 18:49] LABS: Microalbumin/Creatinine Ratio 140.5
[2024-03-11 18:58] LABS: Hemoglobin A1C 9.2 % (4.0-6.0)
[2024-03-11 18:59] LABS: Creatinine,Urine Random 108 mg/dL (Not Estab.)
[2024-03-11 20:39] LABS: Albumin Level 4.5 g/dl (3.5-5.0); Chloride 100 mmol/L (98-107); Sodium 136 mmol/L (136-145)
[2024-03-11 20:42] LABS: Alanine Aminotransferase 17 U/L (12-78); Aspartate Amino Transferase 23 U/L (14-36); Bilirubin,Total 0.6 mg/dl (0.2-1.3); Blood Urea Nitrogen 27 mg/dl (7-17); Estimated Glomerular Filt Rate 28 ml/min (>60); GFR (African American) 33 ML/MIN (>60)
[2024-03-11 20:43] LABS: Albumin/Globulin Ratio 1.5 (1.1-1.8); Alkaline Phosphatase 45 U/L (38-126); Calcium 9.1 mg/dl (8.4-10.2); Carbon Dioxide 25 mmol/L (22.0-30.0); Globulin 3.1 g/dL (1.3-3.2); Glucose 282 mg/dl (74-100); Total Protein,Serum 7.6 g/dl (6.3-8.2)
[2024-03-11 21:18] LABS: HIV (1&2) Antibody Rapid NONREACTIVE (NONREACTIVE)
[2024-03-13 05:12] LABS: HBsAg Screen Negative (Negative); HCV Ab Non Reactive (Non Reactive); Hep A Ab, IGM Negative (Negative); Hep B Core Ab, IgM Negative (Negative)
== END 2024-03-11 23:59 | disposition home or self-care (01) ==
LOC: LAB.DROPOF 03-12 09:16
PROVIDERS: PCP Internal Medicine; Visit Provider Internal Medicine
DX: E10.65 Type 1 diabetes mellitus with hyperglycemia (principal); E66.9 Obesity, unspecified; I10 Essential (primary) hypertension; N28.9 Disorder of kidney and ureter, unspecified; I25.118 Atherosclerotic heart disease of native coronary artery with other forms of angina pectoris
CPT/HCPCS: 80053; 80074; 82043; 82570; 83036; 85025; 87389

== ENCOUNTER 2024-03-25 07:41 | Outpatient (CLI) | payer OTHER, SELFPAY ==
--- NOTE | 2024-03-25 07:46 | CA_ITS ---
FINAL REPORT TECHNIQUE: Ultrasound images of the kidneys were obtained. Duplex Doppler of the renal arteries, RAR and RI also obtained. Spectral analysis was performed. CLINICAL HISTORY: CAD, CKDIII, Hypotension, DM COMPARISON: None FINDINGS: Aortic velocity is measured at 85 cm/sec. The right kidney measures 9.1 cm in length. No hydronephrosis, cortical thinning, or mass. RAR is 0.66-0.75. Peak systolic velocity is 70 cm/sec. RI is 0.89. No evidence of renal artery stenosis or chronic renal disease. The left kidney measures 9.8 cm in length. No hydronephrosis, cortical thinning, or mass. RAR is 0.73-0.86. Peak systolic velocity is 337 cm/sec. RI is 4.0. High-grade stenosis distal left renal artery. IMPRESSION: No evidence of renal artery stenosis or chronic renal disease on the right. High-grade stenosis distal left renal artery. Recommend CTA to further characterize. Reviewed, Interpreted and Dictated by Santos Hendrickson MD Transcribed by Ashanti Hernandez Authenticated and [facility]
--- NOTE | 2024-03-25 08:20 | US_ITS ---
FINAL REPORT CLINICAL HISTORY: N18.4 - Chronic kidney disease, stage 4 (severe) COMPARISON: None FINDINGS: RENAL ULTRASOUND Ultrasound images of the kidneys were obtained. Limited images of the liver parenchyma demonstrates normal echogenicity. The right kidney measures 9.8 cm in length. There is an echogenic shadowing focus in the right kidney measuring 9 mm, likely stone. There is no hydronephrosis. The left kidney measures 9.8 cm in length. It is normal echogenicity. There is no hydronephrosis. IMPRESSION: Probable right renal stone. Reviewed, Interpreted and Dictated by Santos Hendrickson MD Transcribed by Ashanti Hernandez Authenticated and [facility]
== END 2024-03-25 23:59 | disposition home or self-care (01) ==
LOC: RT 07:42
PROVIDERS: PCP Internal Medicine; Visit Provider Internal Medicine
DX: N18.4 Chronic kidney disease, stage 4 (severe) (principal)
CPT/HCPCS: 76770; 93976

== ENCOUNTER 2024-04-07 08:24 | Outpatient (CLI) | payer OTHER, SELFPAY ==
--- NOTE | 2024-04-07 08:24 | CT_ITS ---
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 History of 3v-CABG (DUARTE to LAD, SVG to OM2, SVG to distal PDA) TECHNIQUE Image Acquisition: A 128 slice MDCT scanner ([employer] View) was used for data acquisition. A noncontrast coronary calcium scan was performed. A CT attenuation threshold of 130 Hounsfield units (HU) was used for the detection of calcium in contiguous voxels of 1 sq mm in area to be counted as individual lesions. Bolus tracking in the ascending aorta with a threshold of 180 HU was performed. Immediately afterwards, ECG synchronized cardiac CT was then performed from the cardiac base to apex using retrospective gating with ECG tube current modulation. A total of 85 mL of Isovue 370 mg/mL contrast medium was administered at 5 mL/sec followed by a saline flush using a biphasic injection protocol. A tube voltage of 120 KVp was used. The patient received the following medications prior to the cardiac CT. 150 mg of oral metoprolol 5 mg of intravenous metoprolol 15 mg of oral ivabradine 0.8 mg of sublingual nitroglycerin The average heart rate at the time of acquisition was 60 bpm and regular. Image Reconstruction Transaxial images were reconstructed at 0.67 mm slide thickness. Data was reviewed interactively on an advanced workstation capable of 2 and 3-dimensional displays in all conventional reconstruction formats, including multiplanar reformations, maximum intensity projections, curved multiplanar reformations, and volume rendered reconstructions. When applicable, selected routine images describing the relevant coronary anatomy and pathology were saved and sent to PACS. Complications None Technical Quality Overall image quality was fair. Coronary artery opacification was suboptimal. Total DLP (Dose-Length Product) is 1033.6 mGy-cm. The reported value represents the total of one or more individual components during the CT acquisition of this date and at this time, and as such, the same value may appear in more than one CT report depending on the interpreting/reporting physicians. COMPARISON None FINDINGS CT Coronary Calcium Scoring is not performed in the setting of known prior history of CAD and 3v-CABG. The interpretation of the calcium heart score is based on the following continuum*: 0 = no calcified plaque detected (risk of coronary artery disease is very low ??? less than 5%) 1-10 = calcium detected in extremely minimal levels (risk of coronary diseases is still low ??? less than 10%) 11-100 = mild levels of plaque detected with certainty (mild or minimal narrowing of heart arteries is likely) 101-400 = definite,at least moderate levels of plaque detected (relatively high risk of a heart attack within 3-5 years) >401-999 = extensive levels of plaque detected (high risk of heart attack, high levels of vascular disease are present, high likelihood of at least one significant coronary narrowing) *The calcium heart score quantifies the burden of coronary calcification/plaque in the coronary arteries. The calcium heart score is not able to evaluate the presence or burden of non-calcified (i.e. soft) plaque. Coronary CT Angiography The coronary arterial system is right dominant. Quantitative Stenosis Grading: Left Main (LM): The left main originates normally from the left sinus of Valsalva. The LM bifurcates into the left anterior descending artery and left circumflex artery. There is mixed calcified/noncalcified plaque in the distal LM, with < 25% luminal stenosis. Left Anterior Descending (LAD) and Diagonal Branches: The LAD gives off 3 diagonal branch(es). There is mixed calcified/noncalcified plaque in the proximal and mid LAD segments, with up to 70-90% luminal stenosis. There is no evidence of LAD-myocardial bridge. Left Circumflex (LCX) and Obtuse Marginals (OM): The LCX gives off 2 Obtuse Marginal (OM) branch(es). There is mixed calcification in the proximal LCx, OM1, and OM 2 segments, with up to 70-90% luminal stenosis noted proximally. The proximal portion of the of the OM2 segment is likely chronically totally occluded. Right Coronary Artery (RCA): The RCA originates normally from the right sinus of Valsalva. The RCA gives off a posterior descending artery (PDA) and posterolateral (PL) branches. There is mixed calcified/noncalcified plaque along the proximal and mid RCA segments, with up to 70-90% luminal stenosis. CABG Grafts: DUARTE to LAD: The distal DUARET segment has calcified plaque along its course, with indeterminate degree of luminal stenosis. The ostial and proximal segments are not visualized in the study. SVG to OM2: There is no contrast opacification of the SVG graft, suggestive of likely total occlusion ostially (aortic stump only visualized). SVG to PDA: The SVG is patent with no evidence of atherosclerosis. The anastomosis site at distal PDA is patent. Non-Coronary Cardiac Findings: Analysis of the left ventricular (LV) structure and function was performed after 3-D reconstruction of the LV from axial images, with user-corrected automatic contouring for assessment of LV volumes and user-defined reconstruction from oblique planes for measurement of 3-D cardiac structure and function. -The left ventricle systolic function is normal. Septal hypokinesis is present. -There is no left atrial appendage filling defect. Two right pulmonary veins and two left pulmonary veins drain normally into the left atrium. -No pericardial thickening or calcification. -Central and branch pulmonary arteries in the [id number] are unremarkable. -Thoracic aorta within the visualized thoracic aortic-branches in the [id number] is unremarkable. Extracardiac Structures No significant extra-cardiac findings. Note, however, that this study is focused on the cardiac findings. IMPRESSION -Overall, this CCTA is nondiagnostic in the setting of incomplete evaluation of the DUARTE grafts, as well as difficult imaging with suboptimal image quality suboptimal IV opacification. -CT Coronary Calcium Scoring is not performed in the setting of known prior history of CAD and 3v-CABG. -Prior history of 3v-CABG (DUARTE to LAD, SVG to OM2, and SVG to distal PDA). Severe multivessel coronary disease of the coquille vessels evidence of significant flow-limiting atherosclerosis of the coronary arteries. -Moderate to severe calcification of the DUARTE to LAD graft (note that the proximal to mid DUARTE segments are not visualized in the study), as well as likely total occlusion of the SVG-to-OM2 at the ostial level (aortic stump). -CAD-RADS 5. Management recommendations per ACC/AHA guidelines*, as clinically appropriate. -The left ventricle systolic function is normal. Septal hypokinesis is present. *Recommendations: CAD RADS 0: Reassurance. Consider non-atherosclerotic causes of chest pain. CAD RADS 1: Consider non-atherosclerotic causes of chest pain. Consider preventive therapy and risk factor modification. CAD RADS 2: Consider non-atherosclerotic causes of chest pain. Consider preventive therapy and risk factor modification, particularly for patients with nonobstructive plaque in multiple segments. CAD RADS 3: Consider further functional testing. Consider symptom-guided anti-ischemic and preventive pharmacotherapy as well as risk factor modification per published guideline statements. CAD RADS 4A: Consider further functional testing or invasive coronary angiography with revascularization per published guideline statements. Consider symptom-guided anti-ischemic and preventive pharmacotherapy as well as risk factor modification per published guideline statements. CAD RADS 4B: Invasive coronary angiography recommended with revascularization per published guideline statements. Consider symptom-guided anti-ischemic and preventive pharmacotherapy as well as risk factor modification per published guideline statements. CAD RADS 5: Consider invasive angiography and/or viability assessment with revascularization per published guideline statements. Consider symptom-guided anti-ischemic and preventive pharmacotherapy as well as risk factor modification per published guideline statements. CRITICAL RESULT None COMMUNICATION Per this written report The coronary and cardiac findings of this CCTA were reviewed, reported, and signed by Jared Ortiz MD (Customer Care Manager) Conclusion Electronically signed by : Tomasa Ortiz MD 04/20/2024 13:14:01
[2024-04-07 08:44] VITALS: BMI 24.7
[2024-04-07 08:47] VITALS: BP 145/98; PULSE 93; RESP 18; O2SAT 99
[2024-04-07 08:58] LABS: Chloride 103 mmol/L (98-107); Potassium 4.5 mmoL/L (3.5-5.1); Sodium 138 mmol/L (136-145)
[2024-04-07 09:01] LABS: Blood Urea Nitrogen 29 mg/dl (7-17); Creatinine Clearance Estimated 38 mL/min (50-200); Estimated Glomerular Filt Rate 31 ml/min (>60); GFR (African American) 38 ML/MIN (>60)
[2024-04-07 09:02] LABS: Anion Gap 16.5 mEq/L (5-15); Calcium 9.3 mg/dl (8.4-10.2); Carbon Dioxide 23 mmol/L (22.0-30.0); Glucose 314 mg/dl (74-100)
[2024-04-07] MEDS: IVABRADINE HCL 7.5MG TABLET *IVABRADINE+METOPROLOL REGIMINE 15 MG PO (09:31)
[2024-04-07] MEDS: METOPROLOL TARTRATE 50MG TABLET *IVABRADINE+METOPROLOL REGIMINE 50 MG PO (09:31)
[2024-04-07] MEDS: METOPROLOL TARTRATE 25MG TABLET *IVABRADINE+METOPROLOL REGIMINE 25 MG PO (09:32)
[2024-04-07] MEDS: 0.9 % SODIUM CHLORIDE 1000ML 1,000 ML 999 ML IV (09:33)
[2024-04-07] MEDS: METOPROLOL TARTRATE 50MG TABLET *IVABRADINE+METOPROLOL REGIMINE 75 MG PO (10:34)
[2024-04-07 11:10] VITALS: BP 135/87; PULSE 67; RESP 18; O2SAT 100
[2024-04-07] MEDS: NITROGLYCERIN 0.4MG SL TABLET 0.8 MG SL (11:10)
[2024-04-07 11:15] VITALS: BP 117/71; PULSE 68; RESP 18; O2SAT 100
[2024-04-07] MEDS: METOPROLOL TARTRATE 5MG/5ML VIAL *IVABRADINE+METOPROLOL REGIMINE 5 MG IV (11:15)
[2024-04-07 11:20] VITALS: BP 116/69; PULSE 66; RESP 18; O2SAT 97
[2024-04-07 11:25] VITALS: BP 91/60; PULSE 64; RESP 18; O2SAT 98
[2024-04-07] MEDS: SODIUM CHLORIDE 0.9% 10ML SYR (RAD ONLY) 10 ML IV (11:26)
[2024-04-07] MEDS: IOPAMIDOL-370 (76%);100ML BOTTLE 85 ML IV (11:26)
[2024-04-07] MEDS: 0.9 % SODIUM CHLORIDE 50 ML VIAL IV (11:26)
== END 2024-04-07 11:52 | disposition home or self-care (01) ==
PROVIDERS: PCP Internal Medicine; Visit Provider Internal Medicine
DX: I25.118 Atherosclerotic heart disease of native coronary artery with other forms of angina pectoris (principal)
CPT/HCPCS: 75574; 80048; J7030; Q9967

== ENCOUNTER 2024-08-14 13:42 | Outpatient (CLI) | payer OTHER, SELFPAY ==
[2024-08-14 18:09] LABS: Basophils % 0.5 % (0.1-2.0); Eosinophils # 0.1 K/mm3 (0.0-0.4); Eosinophils % 1.7 % (0.1-12.0); Hemoglobin 13.6 g/dL (12.2-16.2); Lymphocytes # 1.8 K/mm3 (0.7-4.5); Lymphocytes % 23.5 % (10-50); Mean Corpuscular Hemoglobin 28.9 pg (27.0-31.2); Mean Corpuscular Volume 84.9 fl (81-99); Mean Platelet Volume 9.9 fl (7.4-10.4); Monocytes # 0.4 K/mm3 (0.1-1.0); Monocytes % 4.8 % (1.7-9.3); Neutrophils # 5.2 K/mm3 (1.8-7.8); Neutrophils % 69.2 % (37.0-80.0); Nucleated Red Blood Cells # 0 10^3/uL; Nucleated Red Blood Cells % 0 %; Platelet Count 253 K/mm3 (142-424); Red Blood Count 4.71 M/mm3 (4.20-5.40); Red Cell Distribution Width 13.2 % (11.5-17.5); Red Cell Distribution Width-SD 40.6 fL; White Blood Count 7.6 K/mm3 (4.8-10.8)
[2024-08-14 18:56] LABS: Alanine Aminotransferase 17 U/L (12-78); Albumin Level 4.4 g/dl (3.5-5.0); Albumin/Globulin Ratio 1.3 (1.1-1.8); Alkaline Phosphatase 60 U/L (38-126); Anion Gap 18.1 mEq/L (5-15); Aspartate Amino Transferase 23 U/L (14-36); Bilirubin,Total 0.5 mg/dl (0.2-1.3); Blood Urea Nitrogen 21 mg/dl (7-17); Calcium 9.3 mg/dl (8.4-10.2); Carbon Dioxide 24 mmol/L (22.0-30.0); Chloride 102 mmol/L (98-107); Estimated Glomerular Filt Rate 33 ml/min (>60); GFR (African American) 40 ML/MIN (>60); Globulin 3.5 g/dL (1.3-3.2); Glucose 114 mg/dl (74-100); Potassium 4.1 mmoL/L (3.5-5.1); Sodium 140 mmol/L (136-145); Total Protein,Serum 7.9 g/dl (6.3-8.2)
== END 2024-08-14 23:59 | disposition home or self-care (01) ==
LOC: LAB.DROPOF 08-16 13:42
PROVIDERS: PCP Family Medicine; Visit Provider Family Medicine
DX: R11.2 Nausea with vomiting, unspecified (principal); R51.9 Headache, unspecified
CPT/HCPCS: 80053; 85025; 86140

== ENCOUNTER 2024-08-26 13:54 | Outpatient (CLI) | payer OTHER, SELFPAY ==
--- NOTE | 2024-08-26 14:00 | MM_ITS ---
PROCEDURE INFORMATION: Exam: MG Bilateral Screening 3D Mammography Exam date and time: 08/26/2024 1:59 PM Age: 54 years old Clinical indication: Screening examination TECHNIQUE: Imaging protocol: Bilateral Screening tomosynthesis and 2D mammography including computer-aided detection (CAD) when performed. COMPARISON: 1. MG MM DIG SCREENING MAMM BI W/CAD 01/15/2020 8:26 AM 2. MG Screening Mamm w/cad 01/27/2019 3:04 PM FINDINGS: MAMMOGRAPHY: Breast composition: There are scattered areas of fibroglandular density. Mass: None. Architectural distortion: None. Calcifications: No suspicious calcifications. Asymmetric density: None. Skin thickening: None. Axillary adenopathy: None. IMPRESSION: No mammographic evidence of malignancy. Annual screening is recommended unless otherwise clinically indicated. ASSESSMENT: BI-RADS Category 1: Negative.
[2024-08-26 15:15] LABS: Cholesterol 249 mg/dl (140-200); Triglycerides 162 mg/dl (30-150); VLDL Cholesterol 32 mg/dL (0-40)
[2024-08-26 15:16] LABS: Chol/HDL Ratio 4.7 (1-3.5); HDL Cholesterol 53 mg/dl (40-60)
[2024-08-26 15:26] LABS: Direct LDL Cholesterol 143.51 mg/dL (100-129)
[2024-08-26 15:44] LABS: Hemoglobin A1C 6.9 % (4.0-6.0)
[2024-08-26 15:58] LABS: Thyroid Stimulating Hormone 1.61 uIU/mL (0.465-4.68)
== END 2024-08-26 23:59 | disposition home or self-care (01) ==
PROVIDERS: PCP Family Medicine; Visit Provider Family Medicine
DX: Z12.31 Encounter for screening mammogram for malignant neoplasm of breast (principal); R51.9 Headache, unspecified; R11.2 Nausea with vomiting, unspecified; E87.1 Hypo-osmolality and hyponatremia; I12.9 Hypertensive chronic kidney disease with stage 1 through stage 4 chronic kidney disease, or unspecified chronic kidney disease; E11.22 Type 2 diabetes mellitus with diabetic chronic kidney disease; N18.4 Chronic kidney disease, stage 4 (severe); G62.9 Polyneuropathy, unspecified; E78.5 Hyperlipidemia, unspecified; Z86.73 Personal history of transient ischemic attack (TIA), and cerebral infarction without residual deficits; Z79.4 Long term (current) use of insulin; Z79.84 Long term (current) use of oral hypoglycemic drugs; Z79.85 Long-term (current) use of injectable non-insulin antidiabetic drugs
CPT/HCPCS: 36415; 77063; 77067; 80061; 83036; 84443

== ENCOUNTER 2024-09-04 13:04 | Outpatient (CLI) | payer OTHER, SELFPAY ==
[2024-09-04 14:13] LABS: Blood Urea Nitrogen 25 mg/dl (7-17); Estimated Glomerular Filt Rate 27 ml/min (>60); GFR (African American) 33 ML/MIN (>60)
--- NOTE | 2024-09-04 14:33 | CT_ITS ---
FINAL REPORT TECHNIQUE: Axial CT images were performed through the head. Coronal reformatted images were submitted. This study was performed with techniques to keep radiation doses as low as reasonably achievable (ALARA). Individualized dose reduction techniques using automated exposure control or adjustment of mA and/or kV according to the patient's size were employed. CLINICAL HISTORY: history of stroke COMPARISON: none FINDINGS: The ventricles are normal in size. There is no evidence of hemorrhage. There is no mass or edema identified. There is no abnormal extra-axial fluid seen. There is extensive mucoperiosteal thickening and air-fluid level in the right cell of the sphenoid sinus consistent with acute and chronic sphenoid sinusitis. IMPRESSION: No acute intracranial process. Acute and chronic sphenoid sinusitis. Reviewed, Interpreted and Dictated by Santos Hendrickson MD Transcribed by Ashanti Hernandez Authenticated and [facility]
== END 2024-09-04 23:59 | disposition home or self-care (01) ==
LOC: RAD 13:04
PROVIDERS: PCP Family Medicine; Visit Provider Family Medicine
DX: R51.9 Headache, unspecified (principal); R11.2 Nausea with vomiting, unspecified; Z86.73 Personal history of transient ischemic attack (TIA), and cerebral infarction without residual deficits
CPT/HCPCS: 36415; 70450; 82565; 84520

== ENCOUNTER 2024-09-16 16:05 | Outpatient (CLI) | payer OTHER, SELFPAY ==
[2024-09-16 19:52] LABS: Albumin Level 4.1 g/dl (3.5-5.0); Chloride 107 mmol/L (98-107); Sodium 137 mmol/L (136-145)
[2024-09-16 19:55] LABS: Alanine Aminotransferase 22 U/L (12-78); Albumin/Globulin Ratio 1.4 (1.1-1.8); Alkaline Phosphatase 53 U/L (38-126); Aspartate Amino Transferase 41 U/L (14-36); Bilirubin,Total 0.7 mg/dl (0.2-1.3); Blood Urea Nitrogen 23 mg/dl (7-17); Carbon Dioxide 20 mmol/L (22.0-30.0); Estimated Glomerular Filt Rate 39 ml/min (>60); GFR (African American) 47 ML/MIN (>60); Globulin 2.9 g/dL (1.3-3.2); Glucose 250 mg/dl (74-100)
== END 2024-09-16 23:59 | disposition home or self-care (01) ==
LOC: LAB.DROPOF 09-18 13:04
PROVIDERS: PCP Family Medicine; Visit Provider Family Medicine
DX: G43.909 Migraine, unspecified, not intractable, without status migrainosus (principal); I95.9 Hypotension, unspecified
CPT/HCPCS: 80053

== ENCOUNTER 2024-10-05 14:00 | Outpatient (CLI) | payer OTHER, SELFPAY ==
[2024-10-05 18:31] LABS: Anion Gap 10.7 mEq/L (5-15); Blood Urea Nitrogen 20 mg/dl (7-17); Calcium 8.6 mg/dl (8.4-10.2); Carbon Dioxide 30 mmol/L (22.0-30.0); Chloride 100 mmol/L (98-107); Estimated Glomerular Filt Rate 33 ml/min (>60); GFR (African American) 40 ML/MIN (>60); Glucose 353 mg/dl (74-100); Potassium 3.7 mmoL/L (3.5-5.1); Sodium 137 mmol/L (136-145)
== END 2024-10-05 23:59 | disposition home or self-care (01) ==
LOC: LAB.DROPOF 10-06 13:19
PROVIDERS: PCP Family Medicine; Visit Provider Family Medicine
DX: R39.9 Unspecified symptoms and signs involving the genitourinary system (principal)
CPT/HCPCS: 80048; 87086

== ENCOUNTER 2024-11-02 16:24 | Inpatient (IN) | payer OTHER, SELFPAY ==
[2024-11-02] VITALS (47 sets, daily range): BP systolic 93–246; BP diastolic 57–150; PULSE 78–97; RESP 13–22; TEMP 36.5–36.9; O2SAT 93–98; BMI 27.4; BMI 27.1
--- NOTE | 2024-11-02 16:25 | ECG_ITS ---
APPROVED REPORT Exam: Resting ECG HR:93 bpm ECG Measurements Heart Rate 93 AXES MS 147 P 56 QRSd 97 QRS 75 QT 355 T 8 QTc 406 Conclusion SINUS RHYTHM POSSIBLE LEFT ATRIAL ENLARGEMENT [-0.1mV P-WAVE IN V1/V2] NONSPECIFIC T-WAVE ABNORMALITY BORDERLINE ECG Electronically signed by : ED BORGES, 11/06/2024 14:10:07
--- NOTE | 2024-11-02 16:33 | CT_ITS ---
PROCEDURE INFORMATION: Exam: CTA Head With Contrast, Arteriography Exam date and time: 11/02/2024 6:17 PM Age: 54 years old Clinical indication: Other: TOWNSEND HTN; Additional info: TOWNSEND HTN, emergency TECHNIQUE: Imaging protocol: Computed tomographic angiography of the head with contrast. Exam focused on the arteries. 3D rendering (Not supervised by radiologist): MIP and/or 3D reconstructed images were created by the technologist. Radiation optimization: All CT scans at this facility use at least one of these dose optimization techniques: automated exposure control; mA and/or kV adjustment per patient size (includes targeted exams where dose is matched to clinical indication); or iterative reconstruction. Contrast material: ISOVUE 370; Contrast volume: 80 ml; Contrast route: INTRAVENOUS (IV); COMPARISON: CT HEAD/BRAIN WO CON 11/02/2024 6:15 PM FINDINGS: ANTERIOR CIRCULATION: Right internal carotid artery: Intracranial segment is patent with no significant stenosis. No aneurysm. Right middle cerebral artery: No occlusion or significant stenosis. No aneurysm. Right anterior cerebral artery: No occlusion or significant stenosis. No aneurysm. Left internal carotid artery: Intracranial segment is patent with no significant stenosis. No aneurysm. Left middle cerebral artery: No occlusion or significant stenosis. No aneurysm. Left anterior cerebral artery: No occlusion or significant stenosis. No aneurysm. POSTERIOR CIRCULATION: Right vertebral artery: No occlusion or significant stenosis. No aneurysm. Left vertebral artery: No occlusion or significant stenosis. No aneurysm. Basilar artery: No occlusion or significant stenosis. No aneurysm. Right posterior cerebral artery: No occlusion or significant stenosis. No aneurysm. Left posterior cerebral artery: No occlusion or significant stenosis. No aneurysm. Brain: No definite mass, mass effect, or midline shift. Cerebral ventricles: No ventriculomegaly. Bones/joints: Unremarkable. No acute fracture. Soft tissues: Unremarkable. IMPRESSION: No large vessel stenosis or occlusion.
--- NOTE | 2024-11-02 16:33 | CT_ITS ---
PROCEDURE INFORMATION: Exam: CTA Neck With Contrast Exam date and time: 11/02/2024 6:17 PM Age: 54 years old Clinical indication: Other: TOWNSEND HTN; Additional info: TOWNSEND HTN, emergency TECHNIQUE: Imaging protocol: Computed tomographic angiography of the neck with contrast. Exam focused on the cervical segments of the vasculature. 3D rendering (Not supervised by radiologist): MIP and/or 3D reconstructed images were created by the technologist. Radiation optimization: All CT scans at this facility use at least one of these dose optimization techniques: automated exposure control; mA and/or kV adjustment per patient size (includes targeted exams where dose is matched to clinical indication); or iterative reconstruction. Contrast material: ISOVUE 370; Contrast volume: 80 ml; Contrast route: INTRAVENOUS (IV); COMPARISON: CT HEAD/BRAIN WO CON 11/02/2024 6:15 PM FINDINGS: Right common carotid artery: Mixed atherosclerotic plaque within the distal right CCA, causing approximately 10% luminal narrowing. Right internal carotid artery: Mixed atherosclerotic plaque within the proximal right ICA, causing approximately 20% luminal narrowing. Right external carotid artery: No occlusion or stenosis of the origin. Left common carotid artery: Mixed atherosclerotic plaque within the distal left CCA, causing approximately 20% luminal narrowing. Left internal carotid artery: No stenosis of the extracranial segment. No dissection or occlusion. Left external carotid artery: No occlusion or stenosis of the origin. Right vertebral artery: No stenosis. No dissection or occlusion. Left vertebral artery: No stenosis. No dissection or occlusion. Soft tissues: Normal. No significant soft tissue swelling. Bones/joints: Changes of prior sternotomy and CABG partially visualized. IMPRESSION: No extracranial arterial significant stenosis or occlusion. REFERENCES: NASCET CRITERIA. The degree of stenosis in the cervical segment of the internal carotid artery is based on NASCET criteria. Normal is no stenosis. Mild is less than 50% stenosis. Moderate is 50-69% stenosis. Severe is 70% to 99% stenosis. Total occlusion is no detectable patent lumen.
--- NOTE | 2024-11-02 16:33 | CT_ITS ---
PROCEDURE INFORMATION: Exam: CTA Chest With Contrast Exam date and time: 11/02/2024 6:21 PM Age: 54 years old Clinical indication: Other: TOWNSEND HTN; Additional info: TOWNSEND HTN, emergency TECHNIQUE: Imaging protocol: Computed tomographic angiography of the chest with contrast. Exam focused on the arteries. 3D rendering (Not supervised by radiologist): MIP and/or 3D reconstructed images were created by the technologist. Radiation optimization: All CT scans at this facility use at least one of these dose optimization techniques: automated exposure control; mA and/or kV adjustment per patient size (includes targeted exams where dose is matched to clinical indication); or iterative reconstruction. Contrast material: ISOVUE 370; Contrast volume: 80 ml; Contrast route: INTRAVENOUS (IV); COMPARISON: CR XR CHEST 2V 11/02/2024 6:18 PM FINDINGS: Pulmonary arteries: Normal. No pulmonary emboli. Aorta: Unremarkable. No aortic aneurysm. No aortic dissection. Lungs: Dependent bilateral lung base opacities favor atelectasis. Pleural spaces: Unremarkable. No pneumothorax. No pleural effusion. Heart: Unremarkable. No cardiomegaly. No pericardial effusion. Coronary arteries: Moderate three-vessel calcific atherosclerotic disease of the coronary arteries. Postsurgical changes compatible with CABG procedure. Lymph nodes: Unremarkable. No enlarged lymph nodes. Bones/joints: Unremarkable. No acute fracture. Soft tissues: Unremarkable. IMPRESSION: No acute findings.
--- NOTE | 2024-11-02 16:33 | CT_ITS ---
PROCEDURE INFORMATION: Exam: CT Head Without Contrast Exam date and time: 11/02/2024 6:15 PM Age: 54 years old Clinical indication: Other: TOWNSEND HTN, emergency TECHNIQUE: Imaging protocol: Computed tomography of the head without contrast. Radiation optimization: All CT scans at this facility use at least one of these dose optimization techniques: automated exposure control; mA and/or kV adjustment per patient size (includes targeted exams where dose is matched to clinical indication); or iterative reconstruction. COMPARISON: CT HEAD/BRAIN WO CON 09/04/2024 2:32 PM FINDINGS: Brain: Normal. Cerebral ventricles: No ventriculomegaly. Paranasal sinuses: Minimal right sphenoid sinus disease. Mastoid air cells: Normal as visualized. Bones: Unremarkable. No acute fracture. Soft tissues: Unremarkable. IMPRESSION: No acute intracranial abnormality.
--- NOTE | 2024-11-02 16:34 | XR_ITS ---
PROCEDURE INFORMATION: Exam: XR Chest Exam date and time: 11/02/2024 6:18 PM Age: 54 years old Clinical indication: Other: Cp & HTN emergency; Additional info: Cp HTN emergency TECHNIQUE: Imaging protocol: Radiologic exam of the chest. Views: 2 views. COMPARISON: CT HEART W CALCIUM SCORE 12/29/2019 2:52 PM FINDINGS: Lungs: Unremarkable. No consolidation. Pleural spaces: Unremarkable. No pleural effusion. No pneumothorax. Heart/Mediastinum: Postsurgical changes compatible with CABG procedure. Bones/joints: Unremarkable. IMPRESSION: No acute findings.
--- NOTE | 2024-11-02 16:41 | [facility].EDCP ---
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 Misc See Rx Instructions .Route Qty: 1 6RF Rx Instructions: As directed insulin glargine U-300 conc 300 unit/mL (1.5 mL) insulin pen 45 unit .ROUTE BID Qty: 4.5 8RF Rx Instructions: 45 units twice a day; allopurinol 100 mg tablet 100 mg PO DAILY (DME) lancets [FreeStyle Lancets] 28 gauge misc See Rx Instructions .ROUTE .MEDSUPPLY Qty: 100 Rx Instructions: As directed clopidogrel [Plavix] 75 mg tablet 75 mg PO DAILY Qty: 90 3RF rosuvastatin [Crestor] 10 mg tablet 10 mg PO DAILY Qty: 30 5RF (DME) Omnipod 5 G6-G7 Intro Kt(Gen5) Cartridge See Rx Instructions .ROUTE .MEDSUPPLY Qty: 1 Rx Instructions: As directed tamsulosin [Flomax] 0.4 mg capsule 0.4 mg PO DAILY Qty: 7 0RF (DME) Dexcom G7 Sensor Device See Rx Instructions .ROUTE .COMPLEX Qty: 9 0RF Dose Instruction: APPLY AND WEAR 1 SENSOR FOR 10 DAYS AND THEN CHANGE Rx Instructions: APPLY AND WEAR 1 SENSOR FOR 10 DAYS AND THEN CHANGE Jardiance 10 mg tablet 10 mg PO DAILY Qty: 90 3RF sertraline 50 mg tablet See Rx Instructions .ROUTE .COMPLEX Qty: 90 0RF Dose Instruction: TAKE 1 TABLET BY MOUTH ONCE DAILY Rx Instructions: TAKE 1 TABLET BY MOUTH ONCE DAILY Leqvio 284 mg/1.5 mL syringe 284 mg SQ [id number] Qty: 1.5 0RF gabapentin 600 mg tablet 600 mg PO TID Qty: 90 3RF (DME) Omnipod 5 G6-G7 Pods (Gen 5) Cartridge See Rx Instructions .Route Qty: 5 6RF Rx Instructions: As directed ondansetron 4 mg tablet,disintegrating 4 mg PO Q6H PRN (Reason: nausea and vomiting) 5 Days Qty: 30 0RF insulin lispro 100 unit/mL insulin pen See Rx Instructions .ROUTE .COMPLEX Qty: 15 5RF Dose Instruction: sliding scale DOSE SUBCUTANEOUSLY BEFORE MEALS (max daily DOSE is 100 UNITS EVERY 3 DAYS DIRECTED FOR omnipod) Rx Instructions: sliding scale DOSE SUBCUTANEOUSLY BEFORE MEALS (max daily DOSE is 100 UNITS EVERY 3 DAYS DIRECTED FOR omnipod) Clinical Impressions Clinical Impression: Hypertensive emergency Print Language Print Language: Latvian Discharge ED Provider: Georges De La Garza HPI General Chief Complaint: Chest Pain Stated Complaint: Chest Pain Time Seen by Provider: 11/02/24 16:35 History of Present Illness HPI narrative: Please note that above description of symptoms, in this electronic medical record under categorization of recalled from ER triage doctor by RN are reflective of an initial nursing assessment, however, is not reflective of my full history and physical exam that was personally taken and clarified. Consequentially, this preceding description of symptoms, which may include the patient's categorized chief complaint in the EMR, do not reflect my personal clinical impression, and the ultimate description of history of present illness and patient stated complaints should be deferred to this section of the note. Unless stated otherwise or congruent with this section of the note, additional signs, symptoms, or incongruence should be interpreted as inaccurate with my clinical impression. 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 ea 06/01/24 (Dexcom G7 Irish [place] Operator) clopidogrel 75 mg tablet (Plavix) 75 mg PO DAILY #90 tabs 06/03/24 rosuvastatin 10 mg tablet (Crestor) 10 mg PO DAILY #30 tabs 06/03/24 insulin glargine U-300 conc 300 45 unit (0.15 mL) .Route BID #4.5 06/04/24 unit/mL (1.5 mL) subcutaneous pen mL empagliflozin 10 mg tablet 10 mg PO DAILY #90 tabs 07/20/24 (Jardiance) sertraline 50 mg tablet See Rx Instructions .Route 08/17/24 .COMPLEX #90 tabs inclisiran 284 mg/1.5 mL 284 mg (1.5 mL) SQ [id number] 2 08/27/24 subcutaneous syringe (Leqvio) doses #1.5 mL gabapentin 600 mg tablet 600 mg PO TID #90 tabs 09/18/24 tamsulosin 0.4 mg capsule (Flomax) 0.4 mg PO DAILY #7 caps 10/05/24 insulin pump cart,auto,BT,G6/7 #5 ea 10/16/24 (Omnipod 5 G6-G7 Pods (Gen 5) subcutaneous cartridge) ondansetron 4 mg disintegrating 4 mg PO Q6H PRN nausea and 10/23/24 tablet vomiting 5 days #30 tabs insulin lispro 100 unit/mL See Rx Instructions .Route 10/26/24 subcutaneous pen .COMPLEX #15 mL Allergies Allergy/AdvReac Type Severity Reaction Status Date / Time atorvastatin Allergy Severe lowers Verified 11/02/24 15:43 blood pressure aspirin (ASPIRIN) Allergy Intermediate I-HIVES Verified 11/02/24 15:43 latex (LATEX) Allergy Unknown RASH, HIVES Verified 11/02/24 15:43 midodrine AdvReac Severe Verified 11/02/24 15:43 atorvastatin Allergy Severe lowers bp Uncoded 08/14/24 15:07 PFSH PFSH Disclaimer: The information contained in this section may have been updated after the patient was seen, as this information can be updated by other users. 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 Breast cancer screening Colon cancer screening Diabetic peripheral neuropathy Kidney insufficiency HLD (hyperlipidemia) HTN (hypertension) Diabetes mellitus WARREN (dyspnea on exertion) CAD (coronary artery disease) PTSD (post-traumatic stress disorder) History of type 1 diabetes mellitus Gastroparesis diabeticorum History of gastroesophageal reflux (GERD) History of stroke Cholecystectomy planned Hypotension Diabetes Angina pectoris Surgical History History of heart surgery Hx of appendectomy Social History Smoking Status: Current every day smoker alcohol intake: never substance use type: denies use current occupational status: unemployed Travel in the last 8 weeks?: None Have you lived/traveled outside US in past 30 days?: No Contact w/someone who lives/traveled outside US past 30 days?: No Exposure to someone with infectious disease in past 14 days?: No Do you have a fever (greater than 100.4 F or 38 C)?: No Have you tested positive for COVID-19?: No Exposed to someone with COVID-19 in past 14 days?: No Do you have a sore throat?: No Do you have a cough?: No Do you have any weakness?: No Do you have any diarrhea?: No Are you experiencing any unusual bleeding?: No Do you have any muscle aches/pain?: No Do you have any abdominal pain?: No Are you experiencing loss of taste or smell?: No Other 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 Have you received the Flu Vaccine for this season: No Have you received the Pneumonia Vaccine: No ROS Obtained: Yes All systems reviewed & no additional complaints except as documented Physical Exam General General appearance: alert Neck Neck exam: Present trachea midline Chest Chest inspection: Present normal inspection and symmetric chest wall rise Respiratory Respiratory exam: Present normal lung sounds bilaterally; Absent respiratory distress, wheezes, stridor, accessory muscle use or prolonged expiratory phase Cardiovascular Cardiovascular exam: Present regular rate, normal rhythm and other (Pulses equal and symmetric in upper and lower extremities) Extremities Exam Extremities exam: Absent edema Neurological Exam Neurological exam: Present alert, oriented X3 and CN II-XII intact Skin Skin exam: Present warm and dry; Absent cyanosis, diaphoresis or pallor HEART Score HEART Score HEART Score assessment performed?: Yes History (anamnesis): Moderately suspicious ECG: Non-specific disturbance Age: 45-65 years Risk factors: 3 or more risk factors Troponin: </= normal limit HEART Score: 5 Critical Care Critical Care Time Critical Care Time: Yes (cardiac) Attestation: On 11/02/24, the high probability of a clinically significant, sudden or life threatening deterioration of the following system(s) required my full and direct attention, intervention and personal management. The time I documented below is in addition to time spent performing reported procedures but includes the following listed in this critical care notation. Total Time Total Critical Care Time: 45 Medical Decision Making Medical Records Medical records reviewed: Yes I reviewed the patient's medical records. Nick Inquiry Pt receiving controlled substance: No Nick was queried for this patient: No Vital Signs Vital Signs: 11/02/24 16:27 11/02/24 16:30 11/02/24 16:34 Temperature 98.4 F Temperature Source Oral Pulse Rate 88 97 H Pulse Rate [Left Radial] 93 H Respiratory Rate 16 16 19 Blood Pressure 236/133 H 235/125 H Blood Pressure [Right Arm] 246/129 H Blood Pressure Mean 167 161 Blood Pressure Mean [Right Arm] 168 02 Sat by Pulse Oximetry 98 98 98 Oxygen Delivery Method 11/02/24 16:38 11/02/24 16:40 11/02/24 16:41 Temperature Temperature Source Pulse Rate 82 82 82 Pulse Rate [Left Radial] Respiratory Rate 16 18 18 Blood Pressure 206/113 H 201/112 H 215/118 H Blood Pressure [Right Arm] Blood Pressure Mean 144 141 150 Blood Pressure Mean [Right Arm] 02 Sat by Pulse Oximetry 97 97 95 Oxygen Delivery Method 11/02/24 16:45 11/02/24 16:50 11/02/24 16:55 Temperature Temperature Source Pulse Rate 82 85 81 Pulse Rate [Left Radial] Respiratory Rate 18 18 18 Blood Pressure 214/119 H 202/114 H 209/111 H Blood Pressure [Right Arm] Blood Pressure Mean 140 143 143 Blood Pressure Mean [Right Arm] 02 Sat by Pulse Oximetry 97 96 98 Oxygen Delivery Method 11/02/24 17:00 11/02/24 17:02 11/02/24 17:05 Temperature Temperature Source Pulse Rate 83 80 89 Pulse Rate [Left Radial] Respiratory Rate 16 20 18 Blood Pressure 192/103 H 196/103 H 208/103 H Blood Pressure [Right Arm] Blood Pressure Mean 132 134 130 Blood Pressure Mean [Right Arm] 02 Sat by Pulse Oximetry 98 95 96 Oxygen Delivery Method 11/02/24 17:10 11/02/24 17:16 11/02/24 17:20 Temperature Temperature Source Pulse Rate 79 85 82 Pulse Rate [Left Radial] Respiratory Rate 20 18 18 Blood Pressure 196/105 H 143/83 H 178/103 H Blood Pressure [Right Arm] Blood Pressure Mean 135 103 125 Blood Pressure Mean [Right Arm] 02 Sat by Pulse Oximetry 98 96 97 Oxygen Delivery Method 11/02/24 17:25 11/02/24 17:26 11/02/24 17:31 Temperature Temperature Source Pulse Rate 86 84 89 Pulse Rate [Left Radial] Respiratory Rate 15 18 18 Blood Pressure 93/62 L 99/57 L 209/131 H Blood Pressure [Right Arm] Blood Pressure Mean 72 65 145 Blood Pressure Mean [Right Arm] 02 Sat by Pulse Oximetry 97 96 95 Oxygen Delivery Method 11/02/24 17:35 11/02/24 17:41 11/02/24 17:45 Temperature Temperature Source Pulse Rate 85 85 85 Pulse Rate [Left Radial] Respiratory Rate 18 18 17 Blood Pressure 197/116 H 219/124 H 138/93 H Blood Pressure [Right Arm] Blood Pressure Mean 135 138 108 Blood Pressure Mean [Right Arm] 02 Sat by Pulse Oximetry 96 95 95 Oxygen Delivery Method 11/02/24 17:50 11/02/24 17:55 11/02/24 18:00 Temperature Temperature Source Pulse Rate 85 86 85 Pulse Rate [Left Radial] Respiratory Rate 18 18 17 Blood Pressure 129/93 H 108/70 L 194/122 H Blood Pressure [Right Arm] Blood Pressure Mean 108 83 Blood Pressure Mean [Right Arm] 02 Sat by Pulse Oximetry 95 95 94 L Oxygen Delivery Method 11/02/24 18:34 11/02/24 18:40 Temperature Temperature Source Pulse Rate 86 86 Pulse Rate [Left Radial] Respiratory Rate 14 13 Blood Pressure 201/110 H 173/92 H Blood Pressure [Right Arm] Blood Pressure Mean Blood Pressure Mean [Right Arm] 02 Sat by Pulse Oximetry 96 95 Oxygen Delivery Method Room Air Room Air Lab Data Labs: Lab Results 11/02/24 16:28: WBC 7.8, RBC 5.01, Hgb 14.9, Hct 42.1, MCV 84.0, MCH 29.7, MCHC 35.4, RDW 14.4, Plt Count 293, MPV 10.0, Neut % (Auto) 66.8, Lymph % (Auto) 25.6, [place] % (Auto) 4.9, Eos % (Auto) 1.9, Baso % (Auto) 0.4, Neut # (Auto) 5.2, Lymph # (Auto) 2.0, [place] # (Auto) 0.4, Eos # (Auto) 0.2, Baso # (Auto) 0.0, PT 10.8, INR 0.97, APTT 22.7 L, Sodium 139, Potassium 3.7, Chloride 99, Carbon Dioxide 28, Anion Gap 15.7 H, BUN 22 H, Creatinine 1.50 H, Estimated Creat Clear 47, Estimated GFR 36 L, Est GFR ( Amer) 44 L, Glucose 267 H, Hemoglobin A1c 8.3 H, Calcium 9.1, Magnesium 1.8, Total Bilirubin 0.5, AST 34, ALT 22, Alkaline Phosphatase 68, Troponin I 0.03, NT-Pro-B Natriuret Pep 3130 H, Total Protein 8.8 H D, Albumin 4.8, Globulin 4.0 H, Albumin/Globulin Ratio 1.2, Lipase 231, TSH 1.49, Thyroxine (T4) 6.4, HCV Ab CHI w/Rflx PCR Qn Negative, HIV Ag/Ab Combo Qual Negative 11/02/24 16:45: VBG pH 7.30 L, VBG pCO2 55.2 H, VBG pO2 30.9, VBG HCO3 26.6, VBG Total CO2 28.2 H, VBG O2 Saturation 54.6, VBG Base Excess 0.1, VBG Lactic Acid 1.8 11/02/24 16:28 11/02/24 16:28 Response Orders (Tests/Meds): ED MEDICATIONS Generic Name Dose Route Start Last Admin Trade Name Freq PRN Reason Stop Dose Admin Sodium Nitroprusside 50 mg/ 252 mls @ 6.378 mls/hr 11/02/24 16:45 11/02/24 17:25 Dextrose IV 12/02/24 16:44 0.3 mcg/kg/min .Q24H JHON 6.38 mls/hr Protocol Titration 0.3 MCG/KG/MIN Sodium Chloride 10 ml 11/02/24 18:11 11/02/24 18:16 Sodium Chloride 0.9% 10ml Syr (Rad Only) IV 12/02/24 18:10 10 ml NEEDED PRN Administration Maintain IV Site Discontinued Medications Generic Name Dose Route Start Last Admin Trade Name Freq PRN Reason Stop Dose Admin Acetaminophen 1,000 mg 11/02/24 18:51 11/02/24 19:07 Acetaminophen 1,000mg/100ml Vial IV 11/02/24 18:52 1,000 mg ONCE ONE Administration Dexamethasone Sodium Phosphate 10 mg 11/02/24 18:51 11/02/24 19:06 Dexamethasone 4mg/Ml 1ml Vial IV 11/02/24 18:52 10 mg ONCE ONE Administration Diphenhydramine HCl 25 mg 11/02/24 18:51 11/02/24 19:06 Diphenhydramine 50mg/Ml Vial IV 11/02/24 18:52 25 mg ONCE ONE Administration Furosemide 40 mg 11/02/24 17:05 11/02/24 17:13 Furosemide 40mg/4ml Vial IV 11/02/24 17:06 40 mg ONCE ONE Administration Furosemide 40 mg 11/02/24 18:45 11/02/24 18:47 Furosemide 40mg/4ml Vial IV 11/02/24 18:46 40 mg ONCE ONE Administration Magnesium Sulfate 2 gm in 50 mls @ 50 mls/hr 11/02/24 18:51 11/02/24 19:04 Magnesium Sulfate 2gm/50ml Premix IV 11/02/24 19:50 50 mls/hr ONCE ONE Administration Iopamidol 160 ml 11/02/24 18:11 11/02/24 18:15 Iopamidol-370 (76%);100ml Bottle IV 11/02/24 18:12 160 ml ONCE ONE Administration Metoclopramide HCl 10 mg 11/02/24 18:51 11/02/24 19:08 Metoclopramide Hcl 10mg/2ml Vial IVP 11/02/24 18:52 10 mg ONCE ONE Administration Nitroglycerin 1 gm 11/02/24 16:44 11/02/24 16:47 Nitroglycerin 1 Gm Ointment TD 11/02/24 16:45 1 gm ONCE ONE Administration Sodium Chloride 100 ml 11/02/24 18:11 11/02/24 18:15 0.9 % Sodium Chloride 50 Ml Vial IV 11/02/24 18:12 100 ml ONCE ONE Administration ORDERS Category Date Time Status CT angio abdomen pelvis Stat Cat Scan 11/02/24 18:[address] angio head Stat Cat Scan 11/02/24 16:[address] angio neck Stat Cat Scan 11/02/24 16:[address] head/brain wo con Stat Cat Scan 11/02/24 16:33 Completed CTA Chest [CT angio chest - dissection] Stat Cat Scan 11/02/24 16:33 Completed CA renal artery duplex Stat Exams 11/02/24 17:03 Ordered CXR 2 view (NOT portable) [XR chest 2V] Stat Exams 11/02/24 16:34 Completed Complete Blood Count Auto Diff Stat Lab 11/02/24 16:28 Completed Comprehensive Metabolic Panel Stat Lab 11/02/24 16:28 Completed HIV Combo Stat Lab 11/02/24 16:28 Completed Hemoglobin A1C Stat Lab 11/02/24 16:28 Completed Hepatitis C Ab Qual. W/ RFX Stat Lab 11/02/24 16:28 Completed Lactic Acid Stat Lab 11/02/24 19:57 Received Lipase Stat Lab 11/02/24 16:28 Completed Magnesium Stat Lab 11/02/24 16:28 Completed NT Pro Brain Natriuretic Pep. Stat Lab 11/02/24 16:28 Completed PT INR [Prothrombin Time INR] Stat Lab 11/02/24 16:28 Completed PTT [Activated Partial Thrombo Time] Stat Lab 11/02/24 16:28 Completed T4 (Thyroxine) Stat Lab 11/02/24 16:28 Completed TSH [Thyroid Stimulating Hormone] Stat Lab 11/02/24 16:28 Completed Trop I [Troponin I] Stat Lab 11/02/24 16:28 Completed Troponin I Q3H Lab 11/02/24 22:00 Ordered Troponin I Q3H Lab 11/03/24 01:00 Ordered Venous Blood Gas Stat RT 11/02/24 16:45 Completed MDM Narrative Medical Decision Narrative: 54-year-old female presenting with chest pain. She states that she has a history of usually hypotension, CKD, diabetes, hyperlipidemia. Although, on chart review, appears that patient has hypertension, not hypotension. States she woke up today with crushing chest pain that was substernal. Developed from chest pain into shortness of breath and then the chest pain started radiating to her left jaw and to her left shoulder. Went to her family doctor today. Family provider con EKG, concern for ST elevation, so sent her to the emergency department. On arrival, states that she is having a headache, but denies blurry vision. States that she is not really having chest pain at this point, all the pressure feels like it is in her head. History was obtained via conversation with patient, primary care provider. On arrival, patient hemodynamically stable, alert, oriented x4, appropriate, GCS 15, moving all extremities spontaneously, pupils equal and reactive to light. Full physical exam performed and significant for clinically well-appearing female speaking full sentences and neurologically intact. Moving all extremities spontaneously and symmetrically. Cardiac exam without murmurs gallops or rubs. No lower extremity edema. Pulses equal and symmetric in upper and lower extremities. Differential includes hypertensive emergency, STEMI, dissection, metabolic abnormality, endocrinologic abnormality, among others. Patient was given nitroglycerin for symptomatic management and correction of underlying abnormalities. States she has an allergy to aspirin. After nitroglycerin, started on nitroprusside drip. Patient placed on continuous cardiac monitoring and continuous pulse ox with initial blood pressure 246/129, heart rate 93, saturation 98% on room air. Independent interpretation of EKG shows sinus rhythm 93 bpm with AK 147, QRS 97, QTc 406. T wave inversions lead III, no reciprocal elevations.. Workup independently interpreted and significant for nonactionable CBC. Chemistry with CKD creatinine 1.5 and BUN 22. Patient's A1c 8.3. BNP elevated 3100 with no baseline with history compare to initial troponin 0.03 negative. Thyroid studies nonactionable.. On independent interpretation of imaging, no dissection, vascular stenosis of the chest, abdomen, pelvis. No PE. No intracranial abnormality regarding patient's headache. See radiology read for full review of final results. Heart score 5. Still having headache, given migraine cocktail. On reevaluation, patient resting comfortably and headache is much better. Given patient presentation, workup, history, this most likely represents hypertensive emergency of unknown etiology. Because patient high risk for clinical decompensation, deemed appropriate for inpatient admission. Results were relayed to patient who voiced understanding and patient was agreeable to inpatient admission and management. Patient was admitted to the hospital for further definitive management. Compliance And Control Analyst disclaimer Much of this encounter note is an electronic sales account specialist spoken language to printed text. Electronic sales account specialist of the spoken language may permit errors. Although I have reviewed the note, some errors may still exist.
[2024-11-02 16:42] LABS: Hematocrit 42.1 % (37.0-47.0); Hemoglobin 14.9 g/dL (12.2-16.2); Immature Granulocytes % 0.4 %; Mean Corpuscular HGB Conc 35.4 g/dL (31.8-35.4); Mean Corpuscular Hemoglobin 29.7 pg (27.0-31.2); Mean Corpuscular Volume 84.0 fl (81-99); Nucleated Red Blood Cells % 0 %; Platelet Count 293 K/mm3 (142-424); Red Blood Count 5.01 M/mm3 (4.20-5.40); Red Cell Distribution Width-SD 43.5 fL; White Blood Count 7.8 K/mm3 (4.8-10.8)
[2024-11-02 16:45] LABS: Albumin Level 4.8 g/dl (3.5-5.0); Chloride 99 mmol/L (98-107)
[2024-11-02 16:46] LABS: Potassium 3.7 mmoL/L (3.5-5.1); Sodium 139 mmol/L (136-145)
[2024-11-02 16:47] LABS: Lactate Venous 1.8 mmol/L (0.4-2.0); VBG HCO3 26.6 mmol/L (23-30); VBG PH 7.30 mmol/L (7.31-7.41); VBG PO2 30.9 mmol/L (28-40)
[2024-11-02] MEDS: NITROGLYCERIN 1 GM OINTMENT TD (16:47)
[2024-11-02 16:48] LABS: Alanine Aminotransferase 22 U/L (12-78); Anion Gap 15.7 mEq/L (5-15); Aspartate Amino Transferase 34 U/L (14-36); Blood Urea Nitrogen 22 mg/dl (7-17); Carbon Dioxide 28 mmol/L (22.0-30.0); Creatinine Clearance Estimated 47 mL/min (50-200); Creatinine,Serum 1.50 mg/dl (0.52-1.04); Estimated Glomerular Filt Rate 36 ml/min (>60); GFR (African American) 44 ML/MIN (>60)
[2024-11-02 16:49] LABS: Albumin/Globulin Ratio 1.2 (1.1-1.8); Alkaline Phosphatase 68 U/L (38-126); Bilirubin,Total 0.5 mg/dl (0.2-1.3); Calcium 9.1 mg/dl (8.4-10.2); Globulin 4.0 g/dL (1.3-3.2); Glucose 267 mg/dl (74-100); Lipase 231 U/L (23-300); Magnesium 1.8 mg/dl (1.6-2.3); Total Protein,Serum 8.8 g/dl (6.3-8.2)
[2024-11-02 16:49] LABS: VBG PCO2 55.2 mmol/L (35-51)
[2024-11-02] MEDS: NITROPRUSSIDE SODIUM 50 MG in DEXTROSE 5 % IN WATER 250 ML 6.38 MG IV (16:49)
--- NOTE | 2024-11-02 16:51 | HMH.ITSTN ---
ER to call back when they decide if they want to give fluids for low GFR
--- OUTSIDE RECORDS SUMMARY | 2024-11-02 16:51 | XMS_ITS | Clinical Summary ---
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 Active Lancets Misc MiscIndications: Dyslipidemia associated with type 2 diabetes mellitus (HCC) Use to test BS 4 times daily 150 Each 11 09/22/19 22 Active ascorbic acid, vitamin C, (VITAMIN C) 500 mg Oral Tablet Take 1 Tablet by mouth daily. 30 Tablet 09/27/19 22 Active pantoprazole (PROTONIX) 40 mg Oral Tablet, Delayed Release (E.C.) TAKE ONE TABLET BY MOUTH DAILY , 30-60 MINUTES BEFORE BREAKFAST 30 Tablet 2 03/09/20 22 Active Blood Sugar Diagnostic (ONETOUCH VERIO TEST STRIPS) Misc StripIndications :Dyslipidemia associated with type 2 diabetes mellitus (HCC) USE TO TEST BLOOD SUGAR FOUR TIMES A DAY 150 Strip 09/26/19 Active sodium chloride 1,000 mg [facility] Tablet, Soluble Take 1 Tablet by mouth 2 times daily. 60 Tablet 11 11/10/19 23 Active insulin syringe-needle U-100 0.3 mL 31 gauge x 15/64 [facility] SyringeIndicatio ns:Dyslipidemia associated with type 2 diabetes mellitus ([facility]) Use as directed to inject insulin. E11.65 100 Each 12/15/19 Active Insulin [place], Disposable, (NICOLASA PEN NEEDLE) 32 gauge x 5/32 [facility] NeedleIndication s:Dyslipidemia associated with type 2 diabetes mellitus ([facility]) Use with insulin 4 times daily 400 Each 1 12/18/19 23 Active Blood-Glucose Meter (FREESTYLE LITE METER) [facility] KitIndications:T ype 2 diabetes mellitus with stage 3a chronic kidney disease, with long-term current use of insulin ([facility]) 1 Kit by [facility].(Non-Drug; Combo Route) route 3 times daily. 1 Kit 05/29/19 Active Blood Sugar Diagnostic (FREESTYLE TEST) [facility] StripIndications :Type 2 diabetes mellitus with stage 3a chronic kidney disease, with long-term current use of insulin ([facility]) 1 Strip by [facility].(Non-Drug; Combo Route) route 3 times daily. 100 Each 05/29/19 24 Active Lancets [facility] MiscIndications: Type 2 diabetes mellitus with stage 3a chronic kidney disease, with long-term current use of insulin ([facility]) check FSBS 3 times a day or as needed. 100 Each 05/29/19 24 Active sertraline (ZOLOFT) 50 mg Oral TabletIndication s:Mood disorder Take 1 Tablet by mouth daily. 90 Tablet 1 07/01/19 24 Active clopidogreL (PLAVIX) 75 mg Oral TabletIndication s:History of CVA (cerebrovascular accident) Take 1 Tablet by mouth daily. 90 Tablet 1 07/01/19 24 Active ezetimibe (ZETIA) 10 mg Oral TabletIndication s:Dyslipidemia associated with type 2 diabetes mellitus (HCC) Take 1 Tablet by mouth daily. 90 Tablet 1 07/01/19 24 Active fludrocortisone (FLORINEF) 0.1 mg Oral TabletIndication s:Idiopathic hypotension Take 1 Tablet by mouth daily. 90 Tablet 1 07/01/19 24 Active gabapentin (NEURONTIN) 800 mg Oral TabletIndication s:Diabetic peripheral neuropathy (HCC) Take 1 Tablet by mouth nightly. 30 Tablet 4 07/01/19 24 Active Blood Pressure Monitor [facility] KitIndications:B lood pressure instability,Orth ostatic hypotension,Esse ntial hypertension Check and record blood pressure daily and also prn with any feelings of lightheadedness and syncope 1 Kit 07/11/19 24 Active Blood-Glucose Sensor (DEXCOM G7 SENSOR) [facility] DeviceIndication s:Dyslipidemia associated with type 2 diabetes mellitus (HCC) 1 Each by [facility].(Non-Drug; Combo Route) route every 10 days. CHNAGE EVERY 10 DAYS 9 Each 1 10/21/19 24 Active insulin detemir U-100 (LEVEMIR FLEXTOUCH U100 INSULIN) 100 unit/mL (3 mL) SubQ Insulin PenIndications:D yslipidemia associated with type 2 diabetes mellitus (HCC) Inject under skin (subcutaneous) 25 units two (2) times daily 45 mL 1 11/20/19 24 Active insulin aspart U-100 (NOVOLOG FLEXPEN U-100 INSULIN) 100 unit/mL (3 mL) SubQ Insulin PenIndications:D yslipidemia associated with type 2 diabetes mellitus (HCC) Subcutaneous (Inject under the skin) 10 Units 3 times daily (before meals). 20 units daily on average 15 mL 1 11/20/19 24 Active semaglutide (OZEMPIC) 2 mg/dose (8 mg/3 mL) SubQ Pen InjectorIndicati ons:Dyslipidemia associated with type 2 diabetes mellitus (HCC) DIAL AND INJECT 2MG UNDER THE SKIN ONCE WEEKLY 3 mL 1 11/20/19 24 Active allopurinoL (ZYLOPRIM) 100 mg Oral TabletIndication s:History of gout TAKE 1 TABLET BY MOUTH ONCE DAILY 30 Tablet 07/18/19 25 Active Active Problems Patient Care Coordination No te Formatting of this note migh t be different from the original. Care gap audit completed by Olivia Ruiz RN on 02/28/2022. Problem Noted Date Diagnosed Date Blood pressure instability 07/11/2023 History of gout 07/01/2023 Assessment & Plan (07/01/2023 4:36 PM EST): Has been out of meds and having foot joint pain great toe Checking uric acid Reviewed prevention and treatment measures (In AVS) Drug-induced myopathy 05/25/2023 Overview (05/25/2023): Statin intolerance ( need to Add to Visit Dx once annually due to statin monitoring) Intractable nausea and vomiting 05/01/2023 Urinary tract infection with hematuria, site uns pecified 04/30/2023 Urinary tract infection in female 11/23/2022 Sepsis without acute organ dysfunction Acute pyelonephritis 11/23/2022 Recurrent UTI 11/09/2022 Coronary artery disease invo lving [place] coronary artery of ki[place] tribe heart with angina pectoris 10/02/2022 Orthostatic hypotension 10/01/2022 Syncope due to orthostatic hypotension 3 Overview (09/26/2022): midodrine (PROAMATINE) 2.5 mg Oral Tablet; Take 1 Tablet by mouth 3 times daily for 30 days. Mood disorder 08/30/2022 Overview (08/30/2022): Patient describes experiencing episodes of anxiety, depression and irritability that are often inexplicable and random but cab be exacerbated by life stressors. 08/29/22 Began sertraline 50mg Trial CKD (chronic kidney disease) stage 3, GFR 30-59 ml/min 02/01/2022 Overview (02/01/2022): 01/30/22: Per Dr Alston Jazmin: 1.CKD Stage III-b : Cr at present 1.30-->2.08-->1.47. GFR 49-->28-->42 ml/min. ( Underlying condition: Glomerulosclerosis ) Plan- -Checking MRI with IV [id number] further evaluate lesions seen on both kidneys. -Continue to hold JEREL inhibitors. Patient has orthostatic hypotension likely autonomic insufficiency and not able to tolerate JEREL inhibitor's. If her blood pressure stabilizes, she will be an ideal candidate to try JEREL or ARB's. -Discussed continuing rest of medications as such. She sees Dr Bates from endocrinology. She is currently on Ozempic and may need Farxiga added to help reduce proteinuria and prevent renal disease progression. -Tight control of diabetes with A1c less than 6.5. -Monitor blood pressures at home. -Discussed risk factor reduction, low Sodium diet close to 2 gm per day, DASH diet, avoid carbonated drinks and animal proteins. Exercise as tolerated. -Recommended Protein intake close to 40-50 gm per day -continue to monitor BP and Weights at home. Report in out of range. -Avoid any NSAIDs. If IV contrast is needed, will need pre-treatment with fluids etc. 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 Referral Given for [facility]. 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 Checking level Hyperuricemia 09/25/2021 History of CVA (cerebrovascular accident) 2020 Assessment & Plan (09/27/2021 8:01 PM EDT): Sees neurology. No residual deficits Coronary artery disease invo lving [place] tribe coronary artery of kiowa tribe heart without angina pectoris 04/03/2021 Type 2 diabetes mellitus wit h stage 3a chronic kidney disease, with long-term current use of insulin 04/03/2021 Assessment & Plan (09/27/2021 12:40 PM EDT): - co-managed with Endocrinology and advised to follow-up as directed Just saw him last week and again in 2 months RUQ abdominal pain 04/03/2021 Overview (09/27/2021): With palpation Assessment & Plan (09/27/2021 8:17 PM EDT): Liver panel normal. GERD (gastroesophageal reflux disease) Hyperglycemia due to diabetes mellitus Assessment & Plan (09/27/2021 12:49 PM EDT): Admits she is horrible with the DM diet. Reviewed DM management/compliance (diet plan, exercise) and potential complications of poorly controlled Blood Sugars. Dyslipidemia associated with type 2 diabetes sheree litus 07/22/2020 Overview (09/27/2021): 09/27/21 changed to Zetia due to myalgia Assessment & Plan (09/27/2021 8:15 PM EDT): Does a fairly good job avoiding hit fat foods Memory loss 05/11/2020 Diabetic peripheral neuropathy 05/10/2020 Overview (07/01/2023): Was taking three 300mg tabs (900m) hs 07/01/2023 Gabapentin changed to 800mg hs per patient request Assessment & Plan (01/17/2022 10:55 AM EDT): Current Gabapentin dose not working anymore. Foot neuropathy is much worse Assessment & Plan (09/27/2021 8:15 PM EDT): Refilled Gabapentin which worked well History of liver failure 03/04/2020 Insomnia, persistent 03/04/2020 Hx of coronary artery bypass graft 03/04/2020 Overview (03/04/2020): Recently done at History of CVA (cerebrovascular accident) 2019 Overview (09/27/2021): 2019, 2020 and 2021 Amenorrhea 02/06/2016 Resolved Problems Problem Noted Date Diagnosed Date Resolved Date Dysphagia 04/03/2021 09/27/2021 Surgical wound, non healing 03/28/2020 09/27/2021 Type 2 diabetes mellitus wit h peripheral neuropathy 03/04/2020 05/10/2020 Intractable abdominal pain 02/06/2016 1 Tachycardia 02/06/2016 03/04/2020 Pyelonephritis 02/05/2016 03/04/2020 Elevated TSH 09/27/2021 Acute intractable tension-type headache 03/04/2020 Encounters Date Type Department Care Team Description 08/14/2024 Patient Outreach SEP [facility] [address] [place] [address] Abhijeet Joel APRN [facility] Outreach (A1C/AWV) from Last 3 Months Immunizations Immunization Administration Dates Next Due Hepatitis A, Adult 03/18/2018 Surgical History Surgery Date Site/Laterality Comments APPENDECTOMY KNEE SURGERY CHOLECYSTECTOMY COSMETIC SURGERY face and body TUBAL LIGATION 05/06/2003 - 05/05/2004 UPPER GASTROINTESTINAL ENDOSCOPY 02/13/2016 N/A Surgeon: Jailyn Vieira MD; Location: [facility]; Service: Endoscopy COLONOSCOPY CARDIAC SURGERY triple bypass UPPER GASTROINTESTINAL ENDOSCOPY 05/16/2021 N/A ESOPHAGOGASTRODUODENOS COPY with biopsy and savary dilation; Surgeon: Cleveland Thomas DO; Location: [facility]; Service: Endoscopy XR INJECT CONTRAST EXISTING TUBE 02/01/2020 XR INJECT CONTRAST EXISTING TUBE 02/01/2020 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 Date Comments Diabetes mellitus (HCC) Renal disorder Multi-organ failure with liver failure Liver failure (HCC) reports is o n transplant list at [facility] Hepatitis B Motion sickness Pneumonia NV (myocardial infarction) (HCC) Blood circulation, collateral Heartburn Stroke (HCC) 2019, 2019, 2020 , 2021 Post-operative nausea and vomiting extreme N/V Coronary artery disease invo lving ki[place] coronary artery of ki[place] tribe heart without angina pectoris 04/03/2021 Hyperglycemia due to diabete s mellitus (HCC) 04/02/2021 Dysphagia 04/03/2021 Dizziness Essential hypertension 01/23/2022 Cancer (HCC) Hyperlipidemia Family History 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 Relation Name Comments Cancer Father Jaspreet Huerta High Blood Pressure Father Jaspreet Huerta Diabetes Maternal Grandmother Grandmother Heart Disease Maternal Grandmother Grandmother Kidney Disease Maternal Grandmother Grandmother Coronary Art Dis Mother Relation Name Status Comments Father Jaspreet Huerta Maternal Grandmother Grandmother Mother Social History Tobacco Use Types Packs/Day Years Used Date Smoking Tobacco: Never Smokeless Tobacco: Never Alcohol Use Standard Drinks/Week Comments Never 0 (1 standard drink = 0.6 oz pur e alcohol) Overall Financial Resource Strain (CARDIA) Answe r Date Recorded How hard is it for you to pa y for the very basics like food, housing, medical care, and heating? Not very hard 05/01/2023 PHQ-2 Answer Date Recorded PHQ-2 Total Score 6 05/01/2023 [facility] - Occupational Stress Questionnaire Answer Date Recorded Do you feel stress - tense, restless, nervous, or anxious, or unable to sleep at night because your mind is troubled all the time - these days? To some extent 04/17/2021 Exercise Vital Sign Answer Date Recorde d On average, how many days pe r week do you engage in moderate to strenuous exercise (like a brisk walk)? 0 days 05/01/2023 On average, how many minutes do you engage in exercise at this level? 0 min 05/01/2023 Hunger Vital Sign Answer Date Recorded Within the past 12 months, y ou worried that your food would run out before you got the money to buy more. Never true 05/01/20 23 Within the past 12 months, t he food you bought just didn't last and you didn't have money to get more. Never true 05/01/2023 PRAPARE - Transportation Answer Date Re corded In the past 12 months, has l ack of transportation kept you from medical appointments or from getting medications? Yes 05/07/2023 Lack of Transportation (Non-Medical) Not on file 05/07/2023 Sexually Active Control Partners Comments Yes Surgical Male Comments No Sex and Gender Information Value Date Recorded Sex Assigned at Not on file Legal Sex Female 6:22 PM EDT Gender Identity Not on file Sexual Orientation Not on file Obstetrics History Last Filed Vital Signs Vital Sign Reading Time Taken Comments Blood Pressure 138/83 05/04/2023 8:55 AM EST Pulse 79 05/04/2023 8:55 AM EST Temperature 36.5 C (97.7 F) 05/04/2023 8:55 AM EST Respiratory Rate 16 05/04/2023 8:55 AM EST Oxygen Saturation 99% 05/04/2023 8:55 AM EST Inhaled Oxygen Concentration - - Weight 65.3 kg (144 lb) 11/20/2023 4:53 PM EDT Height 160 cm (5' 3 ) 05/01/2023 10:27 AM EST Body Mass Index 25.51 05/01/2023 10:27 AM EST Plan of Treatment Health Maintenance Due Date Last Done Comments Diabetic Eye Exam 1987 DTaP/TDaP/Td (1 - Tdap) 1988 Hepatitis B Vaccine (1 of 3 - 19+ 3-dose series) 1988 Pneumococcal Vaccine 50+ (1 of 2 - PCV) 1988 Cervical Cancer Screening 1990 Pap Smear 1990 HPV/Pap Cotest 1999 Cologuard 2014 FIT 2014 Sigmoidoscopy 2014 Virtual Colonography 2014 Zoster (1 of 2) 2019 Breast Cancer Screening 01/27/2021 01/27/2019 Annual Wellness Exam 09/27/2022 09/27/2021 COVID-19 Vaccine ( season) 2024 Kidney Health: eGFR 05/03/2024 05/03/2023, 05/02/2023, 05/01/2023, Additional history exists Hemoglobin A1c 05/21/2024 11/19/2023, 04/06, 08/23/2022, Additional history exists Kidney Health: uACR 11/18/2024 11/19/2023, 08/23/2022, 04/03/2021 Lipids 11/18/2024 11/19/2023, 08/05, 09/21/2021, Additional history exists Influenza Vaccine (Season Ended) 2025 Colon Cancer Screening 02/13/2026 Colonoscopy 02/13/2026 02/14/2016, 02/13/2016 Meningococcal B Vaccine Aged Out No l onger eligible based on patient's age to complete this topic Goals Goal Patient Goal Type Associated Problems Recent Progress Patient-Stated? Author Blood Pressure < 140/90 Blood Pressure 138/83(2022 8:55 AM EST) No Mariella Fowler MD BMI (Calculated) < 30 General 27.4(05/01/20 10:27 AM EST) No Mariella Fowler MD Maintain a healthy diet, exercise regularly and maintain an ideal body weight General No Mariella Fowler MD HEMOGLOBIN A1C < 7.0 Result Component 8.9( 7:02 AM EST) No Mariella Fowler MD Procedures Procedure Name Priority Date/Time Associated Diagnosis Comments MICROALBUMIN/CREATIN INE RATIO URINE Routine 11/19/2023 LIPID PANEL REFLEX Routine 11/19/2023 HEMOGLOBIN A1C Routine 11/19/2023 BASIC METABOLIC PANEL Early AM 05/03/2023 7:30 AM EST [facility] COLONOSCOPY Routine 02/14/2016 10:3 0 AM EDT from Last 3 Months or Most Recently Relevant to Health Maintenance Results * (ABNORMAL) LIPID PANEL REFLEX (11/19/2023) Triglycerides 437 MG/DL SEP OFFICE Comment:30-150 Cholesterol 285(A) 0 - 200 MG/DL SEP OFFICE Comment:1400-200 LDL Cholesterol 149.70 MG/DL SEP OFFICE Comment:100-129 HDL 52 >=40 MG/DL SEP OFFICE Comment:40-60 Chol/HDL Ratio 5.5 SEP OFFICE Comment:1-3.5 Blood VENOUS BLOOD / Unknown 11/19/2023 Genet Bates MD CHEMISTRY ORDERABLES Final Resu lt SEP OFFICE * (ABNORMAL) MICROALBUMIN/CREATININE RATIO URINE (11/19/2023) Urine Creatinine,Ran dom 239 MG/DL SEP OFFICE Microalb, Ur 166.200(A) <=31 MG/L SEP OFFICE Microalbumin/C reatinine Ratio-ARUP 69.5 MG/GM SEP OFFICE Urine URINE SPECIMEN COLLECTION / Unknown 11/19/2023 Genet Bates MD URINE ORDERABLES Final Result SEP OFFICE * HEMOGLOBIN A1C (11/19/2023) A1c 8.1 SEP OFFICE Comment:4.0-6.0 Blood VENOUS BLOOD / Unknown 11/19/2023 Genet Bates MD CHEMISTRY ORDERABLES Final Resu lt SEP OFFICE * (ABNORMAL) BASIC METABOLIC PANEL (05/03/2023 7:30 AM EST) Sodium 138 136 - 145 mmol/L 05/03/2023 8:14 AM EST [facility] Potassium 3.5 3.5 - 5.0 mmol/L 05/03/2023 8:14 AM EST [facility] Chloride 104 98 - 107 mmol/L 05/03/2023 8:14 AM EST [facility] Total CO2 23 22 - 29 mmol/L 05/03/2023 8:14 AM EST [facility] Anion Gap 11 7 - 16 mmol/L 05/03/2023 8:14 AM EST [facility] Calcium 8.0(L) 8.6 - 10.4 mg/dL 05/03/2023 8:14 AM EST [facility] Glucose Lvl 230(H) 74 - 100 mg/dL 05/03/2023 8:14 AM EST [facility] BUN 11 6 - 20 mg/dL 05/03/2023 8:14 AM EST [facility] Creatinine 1.25 0.51 - 1.30 mg/dL 05/03/2023 8:14 AM EST [facility] eGFR (CKD-EPIcr 2020) 51(L) >=60 mL/min/1.7 3 m2 05/03/2023 8:14 AM EST [facility] Comment:Estimated GFR was ca lculated using the CKD-EPIcr (2020) equation refit without race. The equation is recommended by the National Kidney Foundation - [place] [employer] of Nephrology Task Force. Blood VENOUS BLOOD / Unknown Venipuncture / Unknown 05/03/2023 7:30 AM EST 05/03/2023 7:48 AM EST us Jose Zacarias MD CHEMISTRY ORDERABLES Final Resul t [facility] [address] [place] [address] * [facility] COLONOSCOPY (02/14/2016 10:30 AM EDT) 02/14/2016 10:3 0 AM EDT Impressions [facility] - 02/14/2016 10:53 AM EDT Otherwise normal colonoscopy with fair prep. Small lesions may have been missed. Plan: Resume all usual medications Follow-up office visit in 1 month Continue Linzess and Miralax for constipation OK to d/c home and f/u in office Continue treatment for HBV This section is an excerpt of the full report. us Jailyn Vieira MD GI PROCEDURE ORDERABLES Final Result Performing Organization Address City/[facility] Co de Phone Number [facility] [address] [place] [address] from Last 3 Months or Most Recently Relevant to Health Maintenance Insurance [facility] [employer] [facility] [address] AET [employer] [facility] [address] [employer] [facility] [place] [address] Advance Directives For more information, please contact: [phone] * Full Code (Latest Code Status on File) Date Activated Date Inactivated Comments 04/30/2023 9:05 PM 05/04/2023 5:45 PM * Full Code Date Activated Date Inactivated Comments 11/23/2022 2:33 AM 11/25/2022 8:03 PM * Full Code Date Activated Date Inactivated Comments 10/01/2022 3:46 PM 10/04/2022 9:55 PM * Full Code Date Activated Date Inactivated Comments 10/01/2022 3:43 PM 10/01/2022 3:46 PM * Full Code Date Activated Date Inactivated Comments 04/12/2021 4:05 PM 04/14/2021 5:40 PM Care Teams Handle Lathe Operator Relationship Specialty Start Date End Date Abhijeet Joel APRN [address] [phone] PCP - General Nurse Practitioner-Family 09/27/21 Mario Walls MD [address] [id number] Internal Medicine-Cardiovascular Disease 06/18/23
--- OUTSIDE RECORDS SUMMARY | 2024-11-02 16:51 | XMS_ITS | Clinical Summary ---
Author Organization [facility] Address [address] [place] [address] Care Team Providers Care Assistant Buyer Name Role Phone Reji Velazquez Primary Care Provider [phone] Abhijeet Espinoza MD Unavailable [phone] Allergies Active Allergy Reactions Criticality Noted Date Comments Aspirin Hives Medium 07/28/2024 Atorvastatin Other - please docum ent in the comment field Low 07/28/2024 Lowers blood pressure Latex Hives,Rash Medium 07/28/2024 Medications gabapentin (Neurontin) 800 MG tablet Take 1 tablet (800 mg) by mouth in the morning and 1 tablet (800 mg) before bedtime. Active insulin aspart (NovoLOG) 100 UNIT/ML injection vial Inject 26 Units under the skin in the morning and 26 Units in the evening. Active insulin lispro (HumaLOG KwikPen) 100 unit/ml injection 3 (three) times a day with meals. See After Visit Summary for instructions on how to take your insulin. Active ondansetron (Zofran) 4 MG tablet Take 1 tablet (4 mg) by mouth every 6 (six) hours. Active semaglutide (Ozempic, 0.25 or 0.5 MG/DOSE,) 2 MG/1.5ML solution pen-injector inj. pen Inject 1.5 mL (2 mg) under the skin 1 (one) time per week. Active sertraline (Zoloft) 50 MG tablet Take 1 tablet (50 mg) by mouth daily. Active SODIUM CHLORIDE PO Take by mouth. Activ e Family History 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 Relation Name Comments Colon cancer Father Prostate cancer Father Coronary artery disease Mother Stroke Other 1 Diabetes Other 2 Breast cancer Other 3 Diabetes Son 1 Thyroid disease Son 2 Relation Name Status Comments Father Mother Other 1 Other 2 Other 3 Son 1 Son 2 Social History Tobacco Use Types Packs/Day Years Used Date Smoking Tobacco: Never Tobacco Cessation:Counseling Given: Not Answered Alcohol Use Standard Drinks/Week Comments Never 0 (1 standard drink = 0.6 oz pur e alcohol) Comments Unknown Sex and Gender Information Value Date Recorded Sex Assigned at Not on file Legal Sex Female 7:53 PM EDT Gender Identity Not on file Sexual Orientation Not on file Last Filed Vital Signs Vital Sign Reading Time Taken Comments Blood Pressure 102/64 03/03/2020 1:13 PM EDT Pulse 94 03/03/2020 1:13 PM EDT Temperature - - Respiratory Rate - - Oxygen Saturation - - Inhaled Oxygen Concentration - - Weight 74.4 kg (164 lb) 03/03/2020 1:13 PM EDT Height 154.9 cm (5' 1 ) 03/03/2020 1:13 PM EDT Body Mass Index 30.99 03/03/2020 1:13 PM EDT Plan of Treatment Upcoming Encounters Date Type Department Care Team (Late st Contact Info) Description 03/26/2025 10:00 AM EST Office Visit [facility] [address] [place] [id number] Noé Kinsey MD [address] [place] [id number] Health Maintenance Due Date Last Done Comments [facility]-Depression Screening 1970 [facility]-/Child/Adol SDOH Screenings 1970 [facility]- SDOH Screenings 1987 [facility]-Adult SDOH Screenings 1987 [facility]-DTaP,Tdap,and Td Vaccine s (1 - Tdap) 1988 [facility]-Hepatitis B Vaccines (1 of 3 - 19+ 3-dose series) 1988 [facility]-Pap Smear 1990 [facility]-Cervical Cancer Screening 1999 [facility]-HPV/Cotest 1999 CT Colonography 2014 Colonoscopy 2014 FIT-DNA 2014 FIT 2014 FOBT 2014 Sigmoidoscopy 2014 [facility]-Colorectal Cancer Screening 2014 [facility]-Pneumococcal Vaccine: 50 + Years (1 of 1 - PCV) 2019 [facility]-Zoster Vaccines (1 of 2) 2019 [id number]-21 Vaccine (1 - 20 24- season) 2024 [facility]-Influenza Vaccine ([place]as[place] n Ended) 2025 [facility]-Hepatitis A Vaccines Aged Out 03/18/2018 No longer eligible based on patient's age to complete this topic [facility]-Breast Cancer Screening Discontinued 01/27/2019 HPV Vaccines Aged Out No longer eligi ble based on patient's age to complete this topic [facility]-HIB Vaccines Aged Out No longer e ligible based on patient's age to complete this topic [facility]-IPV Vaccines Aged Out No longer e ligible based on patient's age to complete this topic [facility]-Rotavirus Vaccines Aged Out No lo nger eligible based on patient's age to complete this topic Procedures Procedure Name Priority Date/Time Associated Diagnosis Comments MAMMOGRAPHY BREAST SCREENING TOMOSYNTHESIS BILATERAL Routine 01/27/2019 12:00 AM EDT from Last 3 Months or Most Recently Relevant to Health Maintenance Results * Mammography Breast Screening Tomosynthesis Bilateral (01/27/2019 12:00 AM EDT) Anatomical Region Laterality Modality Breast Bilateral Mammography Impressions 01/28/2019 3:57 PM EDT BI-RADS Assessment Category 1: Negative. RECOMMENDATION: Routine screening mammogram in 1 year. COMMUNICATION: The results and recommendations will be sent to the patient in a printed lay language version of the imaging report. The mammogram was read with the assistance of CAD and tomosynthesis. Dictated By: Caitlyn Frazier M.D. Page 1 of 2 Patient Name:Janay Ellis : 1970 Age: 48 Gender: femaleDate of Service: 01/27/2019 eferring Phy:Thelma ValerioAccount: [id number] Verified By: Caitlyn Frazier M.D. on 01/28/2019 at 03:52:08 PM Page 2 of 2 Narrative 01/28/2019 3:57 PM EDT REQUESTING PHYSICIAN: THELMA VALERIO REASON FOR EXAMINATION/PROCEDURE: screen EXAMINATION / PROCEDURE: Screening Mamm w/cad Jan 27 2019 - 15:17; ALCIRA BILATERAL SCREENING Jan 27 2019 - 15:17; HISTORY: Patient is 48 years old and is seen for screening mammography. The patient has the following family history of breast cancer: mother, at age 70 and maternal grandmother, at age 90. COMPARISON: This is a baseline study. FINDINGS: MAMMOGRAM The breasts are almo st entirely fatty. No masses, suspicious microcalcifications or architectural distortion are evident. IMPRESSION: BI-RADS Assessment Category 1: Negative. RECOMMENDATION: Routine screening mammogram in 1 year. COMMUNICATION: The re sults and recommendations will be sent to the patient in a printed lay language version of the imaging report. The mammogram was read with the assistance of CAD and tomosynthesis. Read By: CAITLYN FRAZIER M.D. Signed By: CAITLYN FRAZIER M.D. on 01/28/2019 at 15:57:12 Verified by: CAITLYN FRAZIER M.D. on Jan 28 2019 3:57P Transcribed by: [facility] on Jan 28 2019 3:57P Dictated by: CAITLYN FRAZIER M.D. on Jan 28 2019 3:57P Patient Name:Janay Ellis : 1970 Age: 48 Gender: femaleDate of Service: 01/27/2019 eferring Phy:Thelma ValerioAccount: [id number] Thelma Valerio , FINAL REPORT PROCEDURE: Tomosynthesis Bilateral Screening - bilateral , Screening Mammogram With Cad - bilateral HISTORY: Patient is 48 years old and is seen for screening mammography. The patient has the following family history of breast cancer: mother, at age 70 and maternal grandmother, at age 90. COMPARISON: This is a baseline study. FINDINGS: MAMMOGRAM The breasts are almost entirely fatty. No masses, suspicious microcalcifications or architectural distortion are evident. Procedure Note Caitlyn Frazier - 09/11/2020 REQUESTING PHYSICIAN: THELMA VALERIO REASON FOR EXAMINATION/PROCEDURE: screen EXAMINATION / PROCEDURE: Screening Mamm w/cad Jan 27 2019 - 15:17; ALCIRA BILATERAL SCREENING Jan 27 2019 15:17; HISTORY: Patient is 48 years old and is seen for screening mammography. The patient has the following family history of breast cancer: mother, at age 70 and maternal grandmother, at age 90. COMPARISON: This is a baseline study. FINDINGS: MAMMOGRAM The breasts are almo st entirely fatty. No masses, suspicious microcalcifications or architectural distortion are evident. IMPRESSION: BI-RADS Assessment Category 1: Negative. RECOMMENDATION: Routine screening mammogram in 1 year. COMMUNICATION: The re sults and recommendations will be sent to the patient in a printed lay language version of the imaging report. The mammogram was read with the assistance of CAD and tomosynthesis. Read By: CAITLYN FRAZIER M.D. Signed By: CAITLYN FRAZIER M.D. on 01/28/2019 at 15:57:12 Verified by: CAITLYN FRAZIER M.D. on Jan 28 2019 3:57P Transcribed by: [facility] on Jan 28 2019 3:57P Dictated by: CAITLYN FRAZIER M.D. on Jan 28 2019 3:57P Patient Name:Janay Ellis : 1970 Age: 48 Gender: femaleDate of Service:01/27/2019 eferring Phy:Thelma ValerioAccount: [id number] Thelma Marteers , FINAL REPORT PROCEDURE: Tomosynthesis Bilateral Screening - bilateral , Screening Mammogram WithCad - bilateral HISTORY: Patient is 48 years old and is seen for screening mammography. Thepatient has the following family history of breast cancer: mother, at age 70 and maternal grandmother, at age 90. COMPARISON: This is a baseline study. FINDINGS: MAMMOGRAM The breasts are almost entirely fatty. No masses, suspicious microcalcifications or architectural distortion areevident. IMPRESSION: BI-RADS Assessment Category 1: Negative. RECOMMENDATION: Routine screening mammogram in 1 year. COMMUNICATION: The results and recommendations will be sent to the patient in a printedlay language version of the imaging report. The mammogram was read with the assistance of CAD and tomosynthesis. Dictated By: Caitlyn Frazier, M.D. Page 1 of 2 Patient Name:Janay Ellis : 1970 Age: 48 Gender: femaleDate of Service:01/27/2019 eferring Phy:Thelma ValerioAccount: [id number] Verified By: Caitlyn Frazier M.D. on 01/28/2019 at 03:52:08 PM Page 2 of 2 us Historical Provider MD REID BI PROCEDURES Final R esult from Last 3 Months or Most Recently Relevant to Health Maintenance Insurance [employer] Care Teams Assistant Buyer Relationship Specialty Start Date End Date Reji Velazquez DO [address] [place] [address] PCP - General 07/28/24 Abhijeet Espinoza MD [address] [place] [address] 07/28/24
[2024-11-02 16:59] LABS: NT Pro Brain Natriuretic Pep. 3130 pg/mL (0-125)
[2024-11-02 17:04] LABS: Activated Partial Thrombo Time 22.7 seconds (22.8-30.6); INR 0.97 (0.9-1.1); Prothrombin Time 10.8 seconds (10.1-12.5)
--- NOTE | 2024-11-02 17:04 | PC.NURSE ---
is speaking with
[2024-11-02 17:06] LABS: T4 (Thyroxine) 6.4 ug/dl (5.53-11.0)
[2024-11-02] MEDS: FUROSEMIDE 40MG/4ML VIAL 40 MG IV ×2 (17:13→18:47)
[2024-11-02 17:20] LABS: Thyroid Stimulating Hormone 1.49 uIU/mL (0.465-4.68)
--- NOTE | 2024-11-02 17:25 | PC.NURSE ---
Nitro paste removed w approval.
[2024-11-02 17:35] LABS: Hemoglobin A1C 8.3 % (4.0-6.0)
--- NOTE | 2024-11-02 17:36 | HMH.ITSTN ---
ok to scan per Dr. De La Garza
--- NOTE | 2024-11-02 18:12 | CT_ITS ---
PROCEDURE INFORMATION: Exam: CTA Abdomen and Pelvis With Contrast Exam date and time: 11/02/2024 6:21 PM Age: 54 years old Clinical indication: Other: HTN emergency; Additional info: Eval renal arteries and aorta HTN emergency TECHNIQUE: Imaging protocol: Computed tomographic angiography of the abdomen and pelvis with contrast. Exam focused on the arteries. 3D rendering (Not supervised by radiologist): MIP and/or 3D reconstructed images were created by the technologist. Radiation optimization: All CT scans at this facility use at least one of these dose optimization techniques: automated exposure control; mA and/or kV adjustment per patient size (includes targeted exams where dose is matched to clinical indication); or iterative reconstruction. Contrast material: ISOVUE 370; Contrast volume: 80 ml; Contrast route: INTRAVENOUS (IV); COMPARISON: US CA RENAL ARTERY DUPLEX 03/25/2024 7:47 AM FINDINGS: Aorta: Moderate calcific atherosclerotic disease of the abdominal aorta without aneurysmal dilatation is present. Celiac trunk and mesenteric arteries: No occlusion or significant stenosis. Renal arteries: Lobular contours of the kidneys with cortical atrophy without renal artery stenosis. Right iliac arteries: No occlusion or significant stenosis. Left iliac arteries: No occlusion or significant stenosis. Liver: No mass. Gallbladder and biliary ducts: There are surgical clips within the gallbladder fossa. Pancreas: Unremarkable. No mass. No ductal dilation. Spleen: Unremarkable. No splenomegaly. Adrenal glands: Unremarkable. No mass. Kidneys and ureters: No hydronephrosis. Stomach and bowel: Unremarkable. No obstruction. No mucosal thickening. Appendix: No evidence of appendicitis. Intraperitoneal space: Unremarkable. No free air. No significant fluid collection. Lymph nodes: Unremarkable. No enlarged lymph nodes. Urinary bladder: Unremarkable. No mass. Reproductive: Unremarkable as visualized. Bones/joints: No acute fracture. Soft tissues: Unremarkable. IMPRESSION: Lobular contours of the kidneys with cortical atrophy without renal artery stenosis. No hydronephrosis.
[2024-11-02] MEDS: IOPAMIDOL-370 (76%);100ML BOTTLE 160 ML IV (18:15)
[2024-11-02] MEDS: 0.9 % SODIUM CHLORIDE 50 ML VIAL 100 ML IV (18:15)
[2024-11-02] MEDS: SODIUM CHLORIDE 0.9% 10ML SYR (RAD ONLY) 10 ML IV (18:16)
[2024-11-02 18:34] LABS: Hepatitis C Ab Qual. W/ RFX NEGATIVE (Negative)
[2024-11-02] MEDS: MAGNESIUM SULFATE IN WATER 2 GM/50 ML PIGGYBACK IV (19:04)
[2024-11-02] MEDS: DEXAMETHASONE 4MG/ML 1ML VIAL 10 MG IV (19:06)
[2024-11-02] MEDS: ACETAMINOPHEN 1,000MG/100ML VIAL 1000 MG IV (19:07)
[2024-11-02] MEDS: METOCLOPRAMIDE HCL 10MG/2ML VIAL 10 MG IVP (19:08)
[2024-11-02 19:14] LABS: Troponin I 0.03 ng/ml (0.00-0.034)
--- NOTE | 2024-11-02 20:20 | EXP.HP ---
History of Present Illness *Admission Date: 11/02/24 *Reason for visit:: htn *History of present illness: 54-year-old female presents emergency department due to chest pain. She initially went to her primary care physician due to elevated blood pressure and chest pain described as pressure in her center chest. EKG demonstrated normal sinus rhythm with with initial concerns for anterior ST elevations.Symptoms have been present for approximately 2 to 3 days. On arrival blood pressure was 260 mmHg over 120. Repeat EKG demonstrated no ST deviations. She was started on nitroprusside drip and given IV Lasix x 1 with improvement of her blood pressure. On hospitalist consultation blood pressure is currently 170. She has relief of all of her symptoms, only complaint currently is lethargy and fatigue. Surgical history includes CABG Medical history includes CKD 4, hyperlipidemia, hypertension, 5 strokes She is compliant with all medical therapy History is independently obtained. Diagnostics and laboratory evaluation independently interpreted. Old prior records were reviewed. Case was discussed with interventional cardiology and also ER physician. [facility] Disclaimer: The information contained in this section may have been updated after the patient was seen, as this information can be updated by other users. 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 Breast cancer screening Colon cancer screening Diabetic peripheral neuropathy Kidney insufficiency HLD (hyperlipidemia) HTN (hypertension) Diabetes mellitus WARREN (dyspnea on exertion) CAD (coronary artery disease) PTSD (post-traumatic stress disorder) History of type 1 diabetes mellitus Gastroparesis diabeticorum History of gastroesophageal reflux (GERD) History of stroke Cholecystectomy planned Hypotension Diabetes Angina pectoris Surgical History History of heart surgery Hx of appendectomy Social History Smoking Status: Current every day smoker alcohol intake: never substance use type: denies use current occupational status: unemployed Travel in the last 8 weeks?: None Have you lived/traveled outside US in past 30 days?: No Contact w/someone who lives/traveled outside US past 30 days?: No Exposure to someone with infectious disease in past 14 days?: No Do you have a fever (greater than 100.4 F or 38 C)?: No Have you tested positive for COVID-19?: No Exposed to someone with COVID-19 in past 14 days?: No Do you have a sore throat?: No Do you have a cough?: No Do you have any weakness?: No Do you have any diarrhea?: No Are you experiencing any unusual bleeding?: No Do you have any muscle aches/pain?: No Do you have any abdominal pain?: No Are you experiencing loss of taste or smell?: No Other 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 Have you received the Flu Vaccine for this season: No Have you received the Pneumonia Vaccine: No Review of Systems Review of Systems Review of systems:: pertinent systems reviewed and negative unless documented below Constitutional Constitutional: Reports headache(s) Eyes Eyes: Reports system reviewed and no additional complaints, except as documented ENT Ears, Nose, Mouth, and Throat: Reports system reviewed and no additional complaints, except as documented and Reports headache(s) *Cardiovascular Cardiovascular: Reports system reviewed and no additional complaints, except as documented, Reports chest pain and Denies dyspnea *Respiratory Respiratory: Reports system reviewed and no additional complaints, except as documented and Denies dyspnea *Gastrointestinal Gastrointestinal: Reports system reviewed and no additional complaints, except as documented *Genitourinary Genitourinary: Reports system reviewed and no additional complaints, except as documented *Musculoskeletal Musculoskeletal: Reports system reviewed and no additional complaints, except as documented *Neurologic Neurologic: Reports system reviewed and no additional complaints, except as documented and Reports headache(s) Meds Home Medications and Allergies Home Medications ?Medication ?Instructions ?Recorded ?Confirmed ?Type 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 sensor (Dexcom G7 #9 ea 06/01/24 11/02/24 Rx Sensor device) 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,element winding machine tender,cont #1 ea 06/01/24 11/02/24 Rx (Dexcom G7 Art Therapist) allopurinol 100 mg tablet 100 mg PO DAILY 06/03/24 11/02/24 History clopidogrel 75 mg tablet (Plavix) 75 mg PO DAILY #90 tabs 06/03/24 11/02/24 Rx lancets 28 gauge (FreeStyle #100 ea 06/03/24 11/02/24 History Lancets) rosuvastatin 10 mg tablet (Crestor) 10 mg PO DAILY #30 tabs 06/03/24 11/02/24 Rx insulin glargine U-300 conc 300 45 unit (0.15 mL) .Route BID #4.5 06/04/24 11/02/24 Rx unit/mL (1.5 mL) subcutaneous pen mL empagliflozin 10 mg tablet 10 mg PO DAILY #90 tabs 07/20/24 11/02/24 Rx (Jardiance) sertraline 50 mg tablet See Rx Instructions .Route 08/17/24 11/02/24 Rx .COMPLEX #90 tabs inclisiran 284 mg/1.5 mL 284 mg (1.5 mL) SQ [id number] 2 08/27/24 11/02/24 Rx subcutaneous syringe (Leqvio) doses #1.5 mL insulin pump cartridge,auto #1 ea 09/10/24 11/02/24 History dose,BT,G6/G7 with controller subcutaneous (Omnipod 5 G6-G7 Intro Kit(Gen 5) subcutaneous cartridge and controller) gabapentin 600 mg tablet 600 mg PO TID #90 tabs 09/18/24 11/02/24 Rx tamsulosin 0.4 mg capsule (Flomax) 0.4 mg PO DAILY #7 caps 10/05/24 11/02/24 Rx insulin pump cart,auto,BT,G6/7 #5 ea 10/16/24 11/02/24 Rx (Omnipod 5 G6-G7 Pods (Gen 5) subcutaneous cartridge) ondansetron 4 mg disintegrating 4 mg PO Q6H PRN nausea and 10/23/24 11/02/24 Rx tablet vomiting 5 days #30 tabs insulin lispro 100 unit/mL See Rx Instructions .Route 10/26/24 11/02/24 Rx subcutaneous pen .COMPLEX #15 mL New Prescriptions to Start Prescriptions: Allergies Allergy/AdvReac Type Severity Reaction Status Date / Time atorvastatin Allergy Severe lowers Verified 11/02/24 15:43 blood pressure aspirin (ASPIRIN) Allergy Intermediate I-HIVES Verified 11/02/24 15:43 latex (LATEX) Allergy Unknown RASH, HIVES Verified 11/02/24 15:43 midodrine AdvReac Severe Verified 11/02/24 15:43 atorvastatin Allergy Severe lowers bp Uncoded 08/14/24 15:07 Exam Data for Last 24 hours Vital signs and Labs for Last 24 Hours: Temp Pulse Resp BP Pulse Ox O2 Del Method 98.4 F 87 19 127/79 95 Room Air 11/02/24 16:34 11/02/24 20:06 11/02/24 20:06 11/02/24 20:06 11/02/24 20:11/02/24 18:40 Laboratory Results - last 24 hr 11/02/24 16:28: WBC 7.8, RBC 5.01, Hgb 14.9, Hct 42.1, MCV 84.0, MCH 29.7, MCHC 35.4, RDW 14.4, Plt Count 293, MPV 10.0, Neut % (Auto) 66.8, Lymph % (Auto) 25.6, [place] % (Auto) 4.9, Eos % (Auto) 1.9, Baso % (Auto) 0.4, Neut # (Auto) 5.2, Lymph # (Auto) 2.0, [place] # (Auto) 0.4, Eos # (Auto) 0.2, Baso # (Auto) 0.0, PT 10.8, INR 0.97, APTT 22.7 L, Sodium 139, Potassium 3.7, Chloride 99, Carbon Dioxide 28, Anion Gap 15.7 H, BUN 22 H, Creatinine 1.50 H, Estimated Creat Clear 47, Estimated GFR 36 L, Est GFR ( Amer) 44 L, Glucose 267 H, Hemoglobin A1c 8.3 H, Calcium 9.1, Magnesium 1.8, Total Bilirubin 0.5, AST 34, ALT 22, Alkaline Phosphatase 68, Troponin I 0.03, NT-Pro-B Natriuret Pep 3130 H, Total Protein 8.8 H D, Albumin 4.8, Globulin 4.0 H, Albumin/Globulin Ratio 1.2, Lipase 231, TSH 1.49, Thyroxine (T4) 6.4, HCV Ab CHI w/Rflx PCR Qn Negative, HIV Ag/Ab Combo Qual Negative 11/02/24 16:45: VBG pH 7.30 L, VBG pCO2 55.2 H, VBG pO2 30.9, VBG HCO3 26.6, VBG Total CO2 28.2 H, VBG O2 Saturation 54.6, VBG Base Excess 0.1, VBG Lactic Acid 1.8 11/02/24 19:57: Lactate 1.4 I & O for Last 24 hours: Intake & Output 10/30/24 10/31/24 11/01/24 11/02/24 23:59 23:59 23:59 23:59 Intake Total 4.891 / 4.891 Balance 4.891 / 4.891 Weight 70.307 kg Constitutional Constitutional: no acute distress *Routine HEENT Exam Head: Present normocephalic Eye: Present EOMI and PERRL ENT: Present mucous membranes moist *Routine Neck Exam Neck: Present supple; Absent lymphadenopathy *Routine Respiratory Exam Respiratory: Present CTA bilaterally *Routine Cardiovascular Exam Cardiovascular: Present RRR *Routine Abdominal Exam Abdominal: Present soft and normoactive bowel sounds; Absent tenderness *Routine Rectal Exam Rectal:: deferred *Routine Genitalia Exam Genitalia:: deferred *Routine Extremities Exam Extremities: Absent cyanosis, clubbing or edema *Routine Skin Exam Skin: Present warm; Absent rash *Routine Neurological Exam Neurological: Present alert and oriented X3 Assessment and Plan *Assessment and plan (1) Hypertensive emergency: Status: Acute Category: Medical Code(s): I16.1 - Hypertensive emergency (2) CKD (chronic kidney disease): Status: Acute Category: Medical Code(s): N18.9 - Chronic kidney disease, unspecified (3) Worsening headaches: Status: Acute Category: Medical Code(s): R51.9 - Headache, unspecified (4) Chronic kidney disease (CKD) stage G4/A1, severely decreased glomerular filtration rate (GFR) between 15-29 mL/min/1.73 square meter and albuminuria creatinine ratio less than 30 mg/g: Status: Acute Category: Medical Code(s): N18.4 - Chronic kidney disease, stage 4 (severe) (5) History of type 1 diabetes mellitus: Status: Acute Category: Medical Code(s): Z86.39 - Personal history of other endocrine, nutritional and metabolic disease (6) CAD (coronary artery disease): Status: Acute Qualifiers: Coronary Disease-Associated Artery/Lesion type: [place]upiat artery [place] vs. transplanted heart: inupiat heart Associated angina: with stable angina Qualified Code(s): I25.118 - Atherosclerotic heart disease of inupiat coronary artery with other forms of angina pectoris Category: Medical Code(s): I25.10 - Atherosclerotic heart disease of inupiat coronary artery without angina pectoris (7) HTN (hypertension): Status: Acute Qualifiers: Hypertension type: essential hypertension Qualified Code(s): I10 - Essential (primary) hypertension Category: Medical Code(s): I10 - Essential (primary) hypertension (8) Chest pain: Status: Acute Qualifiers: Chest pain type: unspecified Qualified Code(s): R07.9 - Chest pain, unspecified Category: Medical Code(s): R07.9 - Chest pain, unspecified Plan 54-year-old female with prior history of CABG and CKD presenting with hypertensive emergency. He was started on nitroprusside in the emergency department with improvement of her symptoms. Will start p.o. antihypertensives at this time. Plan to wean nitroprusside as p.o. antihypertensives take effect. Hypertensive emergency - Nitroprusside, wean as tolerated - Bisoprolol 5 mg p.o. now - Procardia 30 mg p.o. now - Uptitrate antihypertensive medical therapy as necessary - Cardiology consult - Admit to ICU - Resume medical therapy after reconciliation CAD status post CABG - Medical therapy - Echo - Risk factor modification secondary prevention of coronary artery disease Diabetes mellitus - SSI CKD - At baseline - Lobular contours of the kidneys with cortical atrophy without renal artery stenosis. No hydronephrosis.
--- NOTE | 2024-11-02 20:57 | PC.NURSE ---
Pt arrived on unit @ 1 M Buchanan SRNA
[2024-11-02 21:45] LABS: POC Glucose,Bedside 153 (70-110)
[2024-11-02] MEDS: BISOPROLOL 5MG TABLET 5 MG PO (21:47)
[2024-11-02] MEDS: HEPARIN SODIUM 5,000 UNIT/ML VIAL 5000 UNIT SUBCUT (21:47)
[2024-11-02] MEDS: HYDROCODONE/APAP 5/325 MG TABLET 1 TAB PO (22:03)
[2024-11-02 22:39] LABS: Troponin I 0.03 ng/ml (0.00-0.034)
[2024-11-03] VITALS (37 sets, daily range): BP systolic 92–166; BP diastolic 53–96; PULSE 62–80; RESP 11–20; TEMP 36.4–36.8; O2SAT 90–100
--- NOTE | 2024-11-03 02:00 | PC.NURSE ---
Patient desat and remains around 85% on room air when sleeping. Applied 2L NC to patient.
[2024-11-03 02:20] LABS: Troponin I 0.03 ng/ml (0.00-0.034)
--- NOTE | 2024-11-03 05:17 | PC.NURSE ---
Patient has an insulin pump. She has allowed glucose to be checked on our monitors, however she refuses insulin from hospital stock. She states she does not want to take insulin here, and prefers to allow her pump to function. Patient is alert and oriented x4 and is educated on the risks of not allowing staff to administer insulin per protocol.
[2024-11-03 06:11] LABS: Hematocrit 42.0 % (37.0-47.0); Hemoglobin 14.7 g/dL (12.2-16.2); Immature Granulocytes % 0.4 %; Mean Corpuscular HGB Conc 35.0 g/dL (31.8-35.4); Mean Corpuscular Hemoglobin 29.3 pg (27.0-31.2); Mean Corpuscular Volume 83.8 fl (81-99); Nucleated Red Blood Cells % 0 %; Platelet Count 278 K/mm3 (142-424); Red Blood Count 5.01 M/mm3 (4.20-5.40); Red Cell Distribution Width-SD 43.8 fL; White Blood Count 6.8 K/mm3 (4.8-10.8)
[2024-11-03 06:22] LABS: Cholesterol 178 mg/dl (140-200); HDL Cholesterol 54 mg/dl (40-60); Magnesium 2.2 mg/dl (1.6-2.3); Phosphorous 5.1 mg/dl (2.5-4.5); Triglycerides 111 mg/dl (30-150)
--- NOTE | 2024-11-03 06:31 | PC.NURSE ---
Patient did well through the night. Drip was able to be turned off at 0217 per MAR and has been able to stay off through the night. Patient had one dose of pain medication at the beginning of the shift and has not had any further pain. Patient was able to ambulate before going to bed to use the bedside toilet and ambulated well. Patient did not wish to use any of the insulin at the hospital due to her having an insulin pump. She allowed us to check her blood glucose, but declined both short acting and long acting insulin. Patient educated on risks of not taking hospital insulin and stated she was ok with the risks. Patient AOX4. Vital signs stable at the time of this note.
--- NOTE | 2024-11-03 08:12 | HMH.PHAINT1 ---
Pharmacy Intervention Comments: HOME MEDICATION LIST VERIFIED USING LIST FROM OUTPATIENT PHARMACY AND PT INTERVIEW
[2024-11-03] MEDS: HEPARIN SODIUM 5,000 UNIT/ML VIAL 5000 UNIT SUBCUT ×3 (08:47→21:10)
[2024-11-03] MEDS: GABAPENTIN 600MG TABLET 600 MG PO ×3 (08:48→21:10)
[2024-11-03] MEDS: SERTRALINE 50MG TABLET 50 MG PO (08:48)
[2024-11-03] MEDS: CLOPIDOGREL 75MG TAB 75 MG PO (08:48)
[2024-11-03] MEDS: EMPAGLIFLOZIN 10MG TABLET 10 MG PO (08:48)
[2024-11-03 09:20] LABS: Alanine Aminotransferase 19 U/L (12-78); Albumin Level 4.2 g/dl (3.5-5.0); Albumin/Globulin Ratio 1.4 (1.1-1.8); Alkaline Phosphatase 69 U/L (38-126); Anion Gap 16.9 mEq/L (5-15); Aspartate Amino Transferase 22 U/L (14-36); Bilirubin,Total 0.5 mg/dl (0.2-1.3); Blood Urea Nitrogen 27 mg/dl (7-17); Calcium 10.0 mg/dl (8.4-10.2); Carbon Dioxide 26 mmol/L (22.0-30.0); Chloride 98 mmol/L (98-107); Creatinine Clearance Estimated 41 mL/min (50-200); Creatinine,Serum 1.70 mg/dl (0.52-1.04); Estimated Glomerular Filt Rate 31 ml/min (>60); GFR (African American) 38 ML/MIN (>60); Globulin 3.1 g/dL (1.3-3.2); Glucose 230 mg/dl (74-100); Potassium 3.9 mmoL/L (3.5-5.1); Sodium 137 mmol/L (136-145); Total Protein,Serum 7.3 g/dl (6.3-8.2)
--- NOTE | 2024-11-03 09:34 | PC.NURSE ---
dr burgos at bedside
--- NOTE | 2024-11-03 10:04 | IR_ITS ---
APPROVED REPORT Patient Location: Inpatient PROCEDURES Left heart catheterization Left ventriculogram Selective coronary angiogram Selective engagement left internal mammary artery to the LAD Selective engagement of the saphenous vein graft to circumflex artery Selective engagement of saphenous vein graft to the right coronary Bilateral selective renal angiography INDICATION Unstable angina, Coronary artery disease, History of coronary bypass surgery, Creatinine 1.5, Suspect renovascular hypertension with renal artery stenosis, Informed consent was obtained prior to the procedure. COMPLICATIONS NONE Estimated Blood Loss: LESS THAN 10 ML TECHNIQUE One percent lidocaine used to anesthetize the right groin. The right femoral artery was accessed via the Seldinger technique and a 5 Macedonian sheath was placed in the right femoral artery. A JL 4, JR4 catheter were used to perform left heart catheterization, left ventriculogram selective coronary angiography as well as selective engagement of the 2 vein grafts and the left internal mammary artery. The JR4 catheter was used to perform bilateral selective renal angiography. At the end of the procedure the patient was transferred to the postop holding area in stable condition for sheath removal. ANGIOGRAPHIC RESULTS The left main artery Is small caliber but patent The left anterior descending artery Is proximally occluded The circumflex artery Gives rise to a small first obtuse marginal artery and then a small terminal obtuse marginal artery The right coronary artery Is dominant and has a proximal 70% stenosis mid vessel 70% stenosis followed by 50% stenosis. There is competitive flow from in the posterior descending artery The [place] ventriculogram reveals Preserved 60% The left ventricular end-diastolic pressure 10 mmHg DUARTE to LAD has an ostial proximal 30% calcified stenosis but otherwise patent into the LAD Saphenous to obtuse marginal artery occluded Saphenous to posterior descending artery widely patent. The posterior descending artery then collateralizes what appears to be either a ramus intermedius or a diagonal artery Right renal artery singular normal Left renal artery singular and has a distal 30% eccentric stenosis IMPRESSION Coronary disease as described above Loss of saphenous vein graft to circumflex system Collateralized ramus or first diagonal artery from the right coronary artery/posterior descending artery which is fed by a saphenous vein graft Preserved ejection fraction Normal LVEDP mild left renal artery stenosis PLAN 1. Medical management for coronary artery disease 2. Maximize antianginal medications 3. Aggressive risk factor modification Electronically signed by : Victor M Fan MD 11/03/2024 12:38:42
--- NOTE | 2024-11-03 10:07 | EXP.CARD.CON ---
History of Present Illness History of Present Illness Consult date: 11/03/24 Requesting physician: Navin Freire Consult reason: chest pain Chief complaint: chest pain History of present illness: Ms. Head is a 54-year-old white female with a past medical history of coronary artery disease status post CABG x 3 in 2019, reported hypotension requiring salt tablets, hyperlipidemia, insulin-dependent diabetes mellitus, reported history of 5 CVAs while in hospital for CABG and chronic kidney disease who presented to emergency department yesterday with complaints of chest pressure and high blood pressure. Patient reports she initially went to her PCP yesterday due to severe headache, high blood pressure and crushing chest pain radiating into the left jaw. Upon arrival at PCP office her blood pressure was greater than 200 so she was sent to the ER. Initial EKG showed sinus rhythm at a rate of 93 with a possible left atrial enlargement and nonspecific T wave abnormalities noted. Systolic blood pressures in the emergency department were greater than 200. Significant labs as follow: Creatinine 1.5 (baseline appears to be 1.4-1.6), serial troponins negative and initial proBNP of 3130. Chest CTA was negative for any acute findings. Head CT, head CTA and neck CTA all negative for acute findings. Abdomen pelvis CTA showed lobular contours of the kidneys with cortical atrophy without renal artery stenosis and no hydronephrosis noted. Bilateral renal artery duplex shows less than 50% renal artery stenosis. Patient was given Lasix in the ER and started on nipride drip and admitted. Nipride drip was turned off at 2 AM and blood pressure has been on the lower side since then with systolic in the 90s. Patient denies chest pain or shortness of breath currently. [facility] Disclaimer: The information contained in this section may have been updated after the patient was seen, as this information can be updated by other users. 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 (Updated 11/03/24 @ 05:17 by Veronika Salgado RN) CKD (chronic kidney disease) stage 4, GFR 15-29 ml/min Breast cancer screening Colon cancer screening Diabetic peripheral neuropathy Kidney insufficiency HLD (hyperlipidemia) HTN (hypertension) WARREN (dyspnea on exertion) CAD (coronary artery disease) PTSD (post-traumatic stress disorder) History of type 1 diabetes mellitus Gastroparesis diabeticorum History of gastroesophageal reflux (GERD) History of stroke Cholecystectomy planned Hypotension Angina pectoris Surgical History (Updated 11/03/24 @ 10:17 by Oumou Sheikh APRN) History of heart surgery Hx of appendectomy Social History Smoking Status: Current every day smoker alcohol intake: never substance use type: denies use current occupational status: unemployed Travel in the last 8 weeks?: None Have you lived/traveled outside [place] in past 30 days?: No Contact w/someone who lives/traveled outside US past 30 days?: No Exposure to someone with infectious disease in past 14 days?: No Do you have a fever (greater than 100.4 F or 38 C)?: No Have you tested positive for COVID-19?: No Exposed to someone with COVID-19 in past 14 days?: No Do you have a sore throat?: No Do you have a cough?: No Do you have any weakness?: No Do you have any diarrhea?: No Are you experiencing any unusual bleeding?: No Do you have any muscle aches/pain?: No Do you have any abdominal pain?: No Are you experiencing loss of taste or smell?: No Review of Systems Constitutional Constitutional: Reports headache(s) ENT Ears, Nose, Mouth, and Throat: Reports headache(s) *Cardiovascular Cardiovascular: Reports chest pain and Reports dyspnea *Respiratory Respiratory: Reports dyspnea *Neurologic Neurologic: Reports system reviewed and no additional complaints, except as documented and Reports headache(s) Exam Data for Last 24 hours Vital signs and Labs for Last 24 Hours: Temp Pulse Resp BP Pulse Ox O2 Del Method O2 Flow Rate 97.7 F 72 15 94/62 L 95 Room Air 2 11/03/24 09:00 11/03/24 09:00 11/03/24 09:00 11/03/24 09:00 11/03/24 09:00 11/03/24 09:00 11/03/24 06:51 Laboratory Results - last 24 hr 11/02/24 16:28: WBC 7.8, RBC 5.01, Hgb 14.9, Hct 42.1, MCV 84.0, MCH 29.7, MCHC 35.4, RDW 14.4, Plt Count 293, MPV 10.0, Neut % (Auto) 66.8, Lymph % (Auto) 25.6, [place] % (Auto) 4.9, Eos % (Auto) 1.9, Baso % (Auto) 0.4, Neut # (Auto) 5.2, Lymph # (Auto) 2.0, [place] # (Auto) 0.4, Eos # (Auto) 0.2, Baso # (Auto) 0.0, PT 10.8, INR 0.97, APTT 22.7 L, Sodium 139, Potassium 3.7, Chloride 99, Carbon Dioxide 28, Anion Gap 15.7 H, BUN 22 H, Creatinine 1.50 H, Estimated Creat Clear 47, Estimated GFR 36 L, Est GFR ( Amer) 44 L, Glucose 267 H, Hemoglobin A1c 8.3 H, Calcium 9.1, Magnesium 1.8, Total Bilirubin 0.5, AST 34, ALT 22, Alkaline Phosphatase 68, Troponin I 0.03, NT-Pro-B Natriuret Pep 3130 H, Total Protein 8.8 H D, Albumin 4.8, Globulin 4.0 H, Albumin/Globulin Ratio 1.2, Lipase 231, TSH 1.49, Thyroxine (T4) 6.4, HCV Ab CHI w/Rflx PCR Qn Negative, HIV Ag/Ab Combo Qual Negative 11/02/24 16:45: VBG pH 7.30 L, VBG pCO2 55.2 H, VBG pO2 30.9, VBG HCO3 26.6, VBG Total CO2 28.2 H, VBG O2 Saturation 54.6, VBG Base Excess 0.1, VBG Lactic Acid 1.8 11/02/24 19:57: Lactate 1.4 11/02/24 21:38: POC Glucose 153 H 11/02/24 22:00: Troponin I 0.03 11/03/24 01:30: Troponin I 0.03 11/03/24 05:16: WBC 6.8, RBC 5.01, Hgb 14.7, Hct 42.0, MCV 83.8, MCH 29.3, MCHC 35.0, RDW 14.4, Plt Count 278, MPV 10.0, Neut % (Auto) 88.5 H, Lymph % (Auto) 9.9 L, [place] % (Auto) 0.9 L, Eos % (Auto) 0.0 L, Baso % (Auto) 0.3, Neut # (Auto) 6.0, Lymph # (Auto) 0.7, [place] # (Auto) 0.1, Eos # (Auto) 0.0, Baso # (Auto) 0.0, Sodium 137, Potassium 3.9, Chloride 98, Carbon Dioxide 26, Anion Gap 16.9 H, BUN 27 H, Creatinine 1.70 H, Estimated Creat Clear 41, Estimated GFR 31 L, Est GFR ( Amer) 38 L, Glucose 230 H, Calcium 10.0, Phosphorus 5.1 H, Magnesium 2.2 D, Total Bilirubin 0.5, AST 22 D, ALT 19, Alkaline Phosphatase 69, Total Protein 7.3, Albumin 4.2 D, Globulin 3.1, Albumin/Globulin Ratio 1.4, Triglycerides 111, Cholesterol 178, LDL Cholesterol Direct 76.37 L, VLDL Cholesterol 22, HDL Cholesterol 54, Cholesterol/HDL Ratio 3.3 I & O for Last 24 hours: Intake & Output 10/31/24 11/01/24 11/02/24 11/03/24 23:59 23:59 23:59 23:59 Intake Total 4.891 / 4.891 652.569 / 652.569 Output Total 1000 / 1000 Balance -995.109 / -995.109 652.569 / 652.569 Weight 152 lb 14.4 oz Constitutional Constitutional: no acute distress *Routine Respiratory Exam Respiratory: Present CTA bilaterally and symmetric chest movement *Routine Cardiovascular Exam Cardiovascular: Present RRR, Normal S1 and Normal S2 *Routine Abdominal Exam Abdominal: Present soft and normoactive bowel sounds; Absent tenderness *Routine Extremities Exam Extremities: Present full ROM and normal capillary refill; Absent edema *Routine Skin Exam Skin: Present intact, dry and warm Detailed Neck Exam: Thyroids Thyroid: Absent bruit Meds Home Medications and Allergies Home Medications ?Medication ?Instructions ?Recorded ?Confirmed ?Type 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 sensor (Dexcom G7 #9 ea 06/01/24 11/03/24 Rx Sensor device) 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,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,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 ea 06/01/24 11/03/24 Rx (Dexcom G7 [employer]S Aide) clopidogrel 75 mg tablet (Plavix) 75 mg PO DAILY #90 tabs 06/03/24 11/03/24 Rx lancets 28 gauge (FreeStyle #100 ea 06/03/24 11/03/24 History Lancets) rosuvastatin 10 mg tablet (Crestor) 10 mg PO DAILY #30 tabs 06/03/24 11/03/24 Rx empagliflozin 10 mg tablet 10 mg PO DAILY #90 tabs 07/20/24 11/03/24 Rx (Jardiance) inclisiran 284 mg/1.5 mL 284 mg (1.5 mL) SQ [id number] 2 08/27/24 11/03/24 Rx subcutaneous syringe (Leqvio) doses #1.5 mL insulin pump cartridge,auto #1 ea 09/10/24 11/03/24 History dose,BT,G6/G7 with controller subcutaneous (Omnipod 5 G6-G7 Intro Kit(Gen 5) subcutaneous cartridge and controller) gabapentin 600 mg tablet 600 mg PO TID #90 tabs 09/18/24 11/03/24 Rx insulin pump cart,auto,BT,G6/7 #5 ea 10/16/24 11/03/24 Rx (Omnipod 5 G6-G7 Pods (Gen 5) subcutaneous cartridge) insulin lispro 100 unit/mL See Rx Instructions .Route .COMPLEX 11/03/24 11/03/24 History subcutaneous pen sertraline 50 mg tablet 50 mg PO DAILY 11/03/24 11/03/24 History New Prescriptions to Start Prescriptions: Allergies Allergy/AdvReac Type Severity Reaction Status Date / Time atorvastatin Allergy Severe lowers Verified 11/02/24 15:43 blood pressure aspirin (ASPIRIN) Allergy Intermediate I-HIVES Verified 11/02/24 15:43 latex (LATEX) Allergy Unknown RASH, HIVES Verified 11/02/24 15:43 midodrine AdvReac Severe Unknown Verified 11/03/24 08:13 allergy reaction Assessment and Plan *Assessment and plan (1) Hypertensive emergency: Status: Acute Category: Medical Code(s): I16.1 - Hypertensive emergency (2) CKD (chronic kidney disease): Status: Acute Category: Medical Code(s): N18.9 - Chronic kidney disease, unspecified (3) Hx of CABG: Status: Acute Category: Surgical Code(s): Z95.1 - Presence of aortocoronary bypass graft Plan History of coronary artery disease History of CABG x 3 in 2019 Serial troponins negative EKG negative for acute ischemic changes Patient reports she had episode of crushing chest pain rating to the left jaw with an abnormally high blood pressure which is very unusual for her History of medical noncompliance and follow-up Multiple risk factors including IDDM, hyperlipidemia history of coronary artery disease including bypass Echo pending Offered patient inpatient stress testing versus proceeding with left heart catheterization to evaluate status of coronary artery disease. She is a high risk patient given her history of CABG and risk factors. At this time she would like to proceed with a left heart catheterization to further evaluate CAD. Hypertensive emergency Initial systolic greater than 200 in the setting of chest pressure Bilateral renal ultrasound shows less than 50% stenosis Nipride drip off Systolic blood pressure in the 90s Will hold additional blood pressure medication at this time until after left heart catheterization Chronic kidney disease Creatinine on admission was 1.5. Patient was given Lasix in the ER due to concern for volume overload. Creatinine today is 1.7. Recommend holding additional diuretics at this time until after results of echo and left heart catheterization. No signs of current volume overload. Denies shortness of breath, no lower extremity edema present, lung sounds clear bilaterally, chest CTA negative for pleural effusions or pericardial effusion. CT abdomen pelvis showed lobular contours of the kidneys with cortical atrophy without renal artery stenosis-defer to primary service Hyperlipidemia LDL goal less than 55, LDL is 76 Increase atorvastatin to 40 mg p.o. daily Diabetes mellitus A1c is 8.3. Will defer management to PCP. Consider addition of Jardiance or Ozempic prior to discharge. CV summary 11/03/2024: Will proceed with left heart catheterization to further evaluate for coronary artery disease. Systolic blood pressures in the 90s hold additional diuretics or blood pressure medications at this time. Echocardiogram is pending.
[2024-11-03] MEDS: HEPARIN 1,000 UNITS/500ML NS (CATH LAB) 3000 UNIT IV (10:32)
[2024-11-03] MEDS: LIDOCAINE 1% 10ML MDV 10 ML IJ (10:32)
[2024-11-03] MEDS: 0.9 % SODIUM CHLORIDE 500 ML 25 ML IV (10:32)
[2024-11-03] MEDS: MIDAZOLAM HCL 1MG/ML 5ML VIAL 1 MG IV (10:52)
[2024-11-03] MEDS: FENTANYL 100MCG/2ML VIAL 50 MCG IV (10:52)
[2024-11-03 10:59] LABS: POC Glucose,Bedside 228 (70-110)
--- NOTE | 2024-11-03 11:18 | CA_ITS ---
FINAL REPORT TECHNIQUE: Arterial duplex Doppler evaluation of the right lower extremity with spectral analysis. CLINICAL HISTORY: PT HAD HEART CATH WITH RIGHT FROIN ACCESS,KNOT RIGHT GROIN COMPARISON: None FINDINGS: LIMITED ARTERIAL ULTRASOUND: Limited arterial ultrasound was performed to evaluate the right common femoral artery post cardiac catheterization. There is normal flow in the common femoral artery, without evidence of a pseudoaneurysm, arteriovenous fistula, or thrombosis. IMPRESSION: Normal flow in the right common femoral artery, without evidence of a pseudoaneurysm, arteriovenous fistula, or thrombosis. Reviewed, Interpreted and Dictated by Santos Hendrickson MD Transcribed by Palak Armendariz Authenticated and [facility]
[2024-11-03 12:18] LABS: POC Glucose,Bedside 194 (70-110)
--- NOTE | 2024-11-03 12:30 | PC.NURSE ---
dr burgos at bedside
[2024-11-03] MEDS: HYDROCODONE/APAP 5/325 MG TABLET 1 TAB PO (15:03)
--- NOTE | 2024-11-03 15:09 | P.PN_ITS ---
<Statement entered by Navin Freire MD - 11/03/24 18:46> Rounded on patient after nurse practitioner. Personally examined and interviewed patient. Agree with exam findings and care plan as documented. Subjective *Date: 11/03/24 *Time: 15:15 Interval history: Patient lying in bed, post left heart cath. Patient received no intervention during heart cath. Patient complains of no pain, resting with eyes closed at this time. Medical Exam Vital signs and Labs for Last 24 Hours: Vital Signs Temp Pulse Pulse Resp BP BP Pulse Ox 11/03/24 14:57 11/03/24 14:14 98.1 F 62 14 123/70 94 L 11/03/24 14:00 95 11/03/24 14:00 98.1 F 65 14 104/72 L 95 11/03/24 13:30 97.8 F 65 17 116/67 93 L 11/03/24 13:00 97.7 F 66 17 118/65 95 11/03/24 13:00 11/03/24 12:30 97.7 F 68 16 121/67 93 L 11/03/24 12:15 97.7 F 68 16 122/68 90 L 11/03/24 12:00 97.6 F 72 16 118/71 92 L 11/03/24 11:45 97.6 F 67 15 125/73 93 L 11/03/24 11:33 97.5 F L 11/03/24 11:30 97.5 F L 72 14 132/76 94 L 11/03/24 11:20 71 144/84 H 94 L 11/03/24 11:15 71 20 142/79 H 96 11/03/24 11:12 72 20 141/83 H 94 L 11/03/24 11:06 73 20 133/79 92 L 11/03/24 11:06 72 20 133/84 94 L 11/03/24 11:01 74 75 20 137/76 90 L 11/03/24 10:00 98.0 F 62 14 131/62 100 11/03/24 09:00 11/03/24 09:00 97.7 F 72 15 94/62 L 95 11/03/24 08:00 65 11/03/24 08:00 64 11 L 95 11/03/24 08:00 97.8 F 64 16 107/61 L 95 11/03/24 08:00 11/03/24 08:00 98.0 F 62 16 107/61 L 100 11/03/24 07:00 98.0 F 67 16 92/63 L 100 11/03/24 06:51 11/03/24 06:30 64 15 135/80 96 11/03/24 06:00 65 13 148/89 H 96 11/03/24 05:00 78 14 134/77 97 11/03/24 04:58 11/03/24 04:00 80 11/03/24 04:00 70 97 11/03/24 04:00 97.6 F 78 14 131/73 97 11/03/24 03:00 80 16 147/83 H 98 11/03/24 03:00 11/03/24 02:45 78 15 151/86 H 97 11/03/24 02:30 78 14 155/87 H 97 11/03/24 02:00 78 13 122/70 96 11/03/24 01:18 79 11/03/24 01:00 11/03/24 01:00 71 13 120/76 90 L 11/03/24 00:00 77 93 L 11/03/24 00:00 97.9 F 79 16 166/96 H 94 L 11/02/24 23:00 11/02/24 23:00 84 14 169/97 H 93 L 11/02/24 22:00 85 17 149/88 H 93 L 11/02/24 21:01 80 11/02/24 21:00 11/02/24 20:58 97.7 F 78 20 148/91 H 93 L 11/02/24 20:35 98.4 F 82 19 157/90 H 11/02/24 20:25 95 H 11/02/24 20:20 82 19 157/90 H 94 L 11/02/24 20:17 85 19 155/89 H 94 L 11/02/24 20:14 93 L 11/02/24 20:06 87 19 127/79 95 11/02/24 19:57 86 16 192/107 H 96 11/02/24 19:56 86 16 205/109 H 96 11/02/24 19:50 85 18 156/85 H 94 L 11/02/24 19:45 89 15 178/90 H 96 11/02/24 19:40 90 19 165/82 H 95 11/02/24 19:35 87 17 185/109 H 95 11/02/24 19:32 91 H 17 155/98 H 96 11/02/24 19:27 91 H 20 165/150 H 96 11/02/24 19:20 91 H 22 172/106 H 96 11/02/24 19:15 87 159/112 H 11/02/24 19:10 86 145/93 H 96 11/02/24 18:40 86 13 173/92 H 95 11/02/24 18:34 86 14 201/110 H 96 11/02/24 18:00 85 17 194/122 H 94 L 11/02/24 17:55 86 18 108/70 L 95 11/02/24 17:50 85 18 129/93 H 11/02/24 17:45 85 17 138/93 H 11/02/24 17:41 85 18 219/124 H 11/02/24 17:35 85 18 197/116 H 96 11/02/24 17:31 89 18 209/131 H 95 11/02/24 17:26 84 18 99/57 L 11/02/24 17:25 86 15 93/62 L 97 11/02/24 17:20 82 18 178/103 H 97 11/02/24 17:16 85 18 143/83 H 96 11/02/24 17:10 79 20 196/105 H 98 11/02/24 17:05 89 18 208/103 H 96 11/02/24 17:02 80 20 196/103 H 95 11/02/24 17:00 83 16 192/103 H 98 11/02/24 16:55 81 18 209/111 H 98 11/02/24 16:50 85 18 202/114 H 96 11/02/24 16:45 82 18 214/119 H 97 11/02/24 16:41 82 18 215/118 H 95 11/02/24 16:40 82 18 201/112 H 97 11/02/24 16:38 82 16 206/113 H 97 11/02/24 16:34 98.4 F 93 H 19 246/129 H 98 11/02/24 16:30 97 H 16 235/125 H 98 11/02/24 16:27 88 16 236/133 H 98 O2 Del Method O2 Flow Rate 11/03/24 14:57 Room Air 11/03/24 14:14 Room Air 11/03/24 14:00 Room Air 11/03/24 14:00 Room Air 11/03/24 13:30 Room Air 11/03/24 13:00 Room Air 11/03/24 13:00 Room Air 11/03/24 12:30 Nasal Cannula 1 11/03/24 12:15 Nasal Cannula 2 11/03/24 12:00 Nasal Cannula 1 11/03/24 11:45 Nasal Cannula 1 11/03/24 11:33 11/03/24 11:30 Nasal Cannula 1 11/03/24 11:20 Room Air 11/03/24 11:15 Room Air 11/03/24 11:12 Room Air 11/03/24 11:06 Room Air 11/03/24 11:06 Room Air 11/03/24 11:01 Room Air 11/03/24 10:00 Room Air 11/03/24 09:00 Room Air 11/03/24 09:00 Room Air 11/03/24 08:00 11/03/24 08:00 11/03/24 08:00 Room Air 11/03/24 08:00 Room Air 11/03/24 08:00 Room Air 11/03/24 07:00 Room Air 11/03/24 06:51 Nasal Cannula 2 11/03/24 06:30 2 11/03/24 06:00 Nasal Cannula 2 11/03/24 05:00 Nasal Cannula 2 11/03/24 04:58 Nasal Cannula 2 11/03/24 04:00 11/03/24 04:00 Nasal Cannula 2 11/03/24 04:00 Nasal Cannula 2 11/03/24 03:00 2 11/03/24 03:00 Nasal Cannula 2 11/03/24 02:45 2 11/03/24 02:30 2 11/03/24 02:00 Nasal Cannula 2 11/03/24 01:18 11/03/24 01:00 Room Air 11/03/24 01:00 Room Air 11/03/24 00:00 Room Air 11/03/24 00:00 Room Air 11/02/24 23:00 Room Air 11/02/24 23:00 Room Air 11/02/24 22:00 Room Air 11/02/24 21:01 11/02/24 21:00 Room Air 11/02/24 20:58 Room Air 11/02/24 20:35 Room Air 11/02/24 20:25 11/02/24 20:20 11/02/24 20:17 11/02/24 20:14 Room Air 11/02/24 20:06 11/02/24 19:57 11/02/24 19:56 11/02/24 19:50 11/02/24 19:45 11/02/24 19:40 11/02/24 19:35 11/02/24 19:32 11/02/24 19:27 11/02/24 19:20 11/02/24 19:15 11/02/24 19:10 11/02/24 18:40 Room Air 11/02/24 18:34 Room Air 11/02/24 18:00 11/02/24 17:55 11/02/24 17:50 11/02/24 17:45 11/02/24 17:41 11/02/24 17:35 11/02/24 17:31 11/02/24 17:26 11/02/24 17:25 11/02/24 17:20 11/02/24 17:16 11/02/24 17:10 11/02/24 17:05 11/02/24 17:02 11/02/24 17:00 11/02/24 16:55 11/02/24 16:50 11/02/24 16:45 11/02/24 16:41 11/02/24 16:40 11/02/24 16:38 11/02/24 16:34 11/02/24 16:30 11/02/24 16:27 Intake and Output 11/02/24 11/03/24 11/03/24 23:59 07:59 15:59 Intake Total 4.891 / 4.891 56.569 / 9224.451 9265 / 1072.569 Output Total 1000 / 1000 0 / 0 Balance -995.109 / -995.109 56.569 / 9744.214 3969 / 1072.569 Intake: Intake, Oral Amount 1016 / 1016 Intake, Total IV Amount 4.891 / 4.891 56.569 / 56.569 Output: Output, Urine Amount 1000 / 1000 0 / 0 Other: Number of Unmeasured Voids 0 0 Number of Bowel Movements 1 Weight 69.354 kg Laboratory Results - last 24 hr 11/02/24 16:28: WBC 7.8, RBC 5.01, Hgb 14.9, Hct 42.1, MCV 84.0, MCH 29.7, MCHC 35.4, RDW 14.4, Plt Count 293, MPV 10.0, Neut % (Auto) 66.8, Lymph % (Auto) 25.6, Chase % (Auto) 4.9, Eos % (Auto) 1.9, Baso % (Auto) 0.4, Neut # (Auto) 5.2, Lymph # (Auto) 2.0, Chase # (Auto) 0.4, Eos # (Auto) 0.2, Baso # (Auto) 0.0, PT 10.8, INR 0.97, APTT 22.7 L, Sodium 139, Potassium 3.7, Chloride 99, Carbon Dioxide 28, Anion Gap 15.7 H, BUN 22 H, Creatinine 1.50 H, Estimated Creat Clear 47, Estimated GFR 36 L, Est GFR ( Amer) 44 L, Glucose 267 H, Hemoglobin A1c 8.3 H, Calcium 9.1, Magnesium 1.8, Total Bilirubin 0.5, AST 34, ALT 22, Alkaline Phosphatase 68, Troponin I 0.03, NT-Pro-B Natriuret Pep 3130 H, Total Protein 8.8 H D, Albumin 4.8, Globulin 4.0 H, Albumin/Globulin Ratio 1.2, Lipase 231, TSH 1.49, Thyroxine (T4) 6.4, HCV Ab CHI w/Rflx PCR Qn Negative, HIV Ag/Ab Combo Qual Negative 11/02/24 16:45: VBG pH 7.30 L, VBG pCO2 55.2 H, VBG pO2 30.9, VBG HCO3 26.6, VBG Total CO2 28.2 H, VBG O2 Saturation 54.6, VBG Base Excess 0.1, VBG Lactic Acid 1.8 11/02/24 19:57: Lactate 1.4 11/02/24 21:38: POC Glucose 153 H 11/02/24 22:00: Troponin I 0.03 11/03/24 01:30: Troponin I 0.03 11/03/24 05:15: POC Glucose 228 H 11/03/24 05:16: WBC 6.8, RBC 5.01, Hgb 14.7, Hct 42.0, MCV 83.8, MCH 29.3, MCHC 35.0, RDW 14.4, Plt Count 278, MPV 10.0, Neut % (Auto) 88.5 H, Lymph % (Auto) 9.9 L, Chase % (Auto) 0.9 L, Eos % (Auto) 0.0 L, Baso % (Auto) 0.3, Neut # (Auto) 6.0, Lymph # (Auto) 0.7, Chase # (Auto) 0.1, Eos # (Auto) 0.0, Baso # (Auto) 0.0, Sodium 137, Potassium 3.9, Chloride 98, Carbon Dioxide 26, Anion Gap 16.9 H, BUN 27 H, Creatinine 1.70 H, Estimated Creat Clear 41, Estimated GFR 31 L, Est GFR ( Amer) 38 L, Glucose 230 H, Calcium 10.0, Phosphorus 5.1 H, Magnesium 2.2 D, Total Bilirubin 0.5, AST 22 D, ALT 19, Alkaline Phosphatase 69, Total Protein 7.3, Albumin 4.2 D, Globulin 3.1, Albumin/Globulin Ratio 1.4, Triglycerides 111, Cholesterol 178, LDL Cholesterol Direct 76.37 L, VLDL Cholesterol 22, HDL Cholesterol 54, Cholesterol/HDL Ratio 3.3 11/03/24 12:12: POC Glucose 194 H I & O for Labs for Last 24 Hours: Intake & Output 10/31/24 11/01/24 11/02/24 11/03/24 23:59 23:59 23:59 23:59 Intake Total 4.891 / 4.891 1072.569 / 1072.569 Output Total 1000 / 1000 0 / 0 Balance -995.109 / -099.109 2976.569 / 1072.569 Weight 69.354 kg Constitutional: Present no acute distress and cooperative Head: Present atraumatic Eyes: Present as per HPI ENT: Present normal exam Neck: Present normal inspection and full ROM Respiratory: Present CTA bilaterally, normal respiratory effort, able to speak in complete sentences and symmetric chest movement Cardiac: Present Reg Rate and Rhythm; Absent Audible Murmur GI: Present soft and normal bowel sounds; Absent distention or tenderness Rectal (female): Present deferred (female): Present deferred Extremities: Present normal inspection Skin: Present intact Comment:: Right groin dressing, small hematoma Neuro: Present Grossly Intact, awake and oriented x 3 Assessment and Plan *Assessment and plan (1) Status post left heart catheterization: Status: Acute Category: Medical Code(s): Z98.890 - Other specified postprocedural states (2) Hypertensive emergency: Status: Acute Category: Medical Code(s): I16.1 - Hypertensive emergency (3) Hx of CABG: Status: Acute Category: Surgical Code(s): Z95.1 - Presence of aortocoronary bypass graft (4) CKD (chronic kidney disease): Status: Acute Category: Medical Code(s): N18.9 - Chronic kidney disease, unspecified (5) Elevated LDL cholesterol level: Status: Acute Category: Medical Code(s): E78.00 - Pure hypercholesterolemia, unspecified Plan Ms. Head is a 54-year-old female who presented yesterday to the emergency department With chest pain that radiated to her left jaw and left shoulder and shortness of breath. Blood pressure was found to be 246/129, heart rate 93, EKG normal sinus rhythm. She also had a elevated creatinine of 1.5. She does state that she has a history of CKD. BNP was elevated at 3100. Patient did state that normally she has low blood pressure 90s over 60s. She also states that she occasionally has to take salt tablets to regulate her hypotension. Given the complexity of her blood pressure and labs patient was admitted for further evaluation by cardiology. Patient was taken to [facility] today for a left heart cath, she received no intervention. #Hypertensive emergency #Chronic kidney disease ?Patient has history of a CABG, currently on Plavix 75 mg daily. Has aspirin allergy. ?Patient was started on a nitroprusside drip, that was weaned overnight. Patient's blood pressure has stabilized currently 122/68. ?Cardiology Recommends holding blood pressure medication at this time with close outpatient follow-up. ?Creatinine has increased from 1.5-1.7 after diuretics. Echo currently pending. ?Patient does not look clinically volume overloaded, no edema, no shortness of breath, no pleural effusions on x-ray, lungs CTA bilaterally ?Plans to monitor patient on cardiac telemetry overnight. Monitor for bleeding. - Will recheck CBC, CMP in the a.m. ?Small hematoma noted on right groin from left heart cath, patient complains of moderate pain, [place] 5/325 mg every 6 hours as needed. #Hyperlipidemia ? LDL goal less than 55, LDL currently 76. Increase atorvastatin from 20 mg to 40 mg daily. ?Patient states that PCP ordered Neil injection for hyperlipidemia, waiting for insurance approval. #Diabetes, type I ?Patient recently prescribed a insulin pump, patient's PCP saw her yesterday and plans to work on better education for pump use. Patient was previously using insulin pen. 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
--- NOTE | 2024-11-03 15:16 | EXP.DC.SUM ---
General Admission date:: 11/02/24 HPI HPI HPI: 54-year-old female presents emergency department due to chest pain. She initially went to her primary care physician due to elevated blood pressure and chest pain described as pressure in her center chest. EKG demonstrated normal sinus rhythm with with initial concerns for anterior ST elevations.Symptoms have been present for approximately 2 to 3 days. On arrival blood pressure was 260 mmHg over 120. Repeat EKG demonstrated no ST deviations. She was started on nitroprusside drip and given IV Lasix x 1 with improvement of her blood pressure. On hospitalist consultation blood pressure is currently 170. She has relief of all of her symptoms, only complaint currently is lethargy and fatigue. Surgical history includes CABG Medical history includes CKD 4, hyperlipidemia, hypertension, 5 strokes She is compliant with all medical therapy History is independently obtained. Diagnostics and laboratory evaluation independently interpreted. Old prior records were reviewed. Case was discussed with interventional cardiology and also ER physician. Hospital Course Hospital Course Hospital Course: Ms. Head is a 54-year-old female who presented yesterday to the emergency department With chest pain that radiated to her left jaw and left shoulder and shortness of breath. Blood pressure was found to be 246/129, heart rate 93, EKG normal sinus rhythm. She also had a elevated creatinine of 1.5. She does state that she has a history of CKD. BNP was elevated at 3100. Patient did state that normally she has low blood pressure 90s over 60s. She also states that she occasionally has to take salt tablets to regulate her hypotension. Given the complexity of her blood pressure and labs patient was admitted for further evaluation by cardiology. Patient was taken to the [facility] today for a left heart cath, she received no intervention. #Hypertensive emergency #Chronic kidney disease ?Patient has history of a CABG, currently on DAPT. ?Patient was started on a nitroprusside drip, that was weaned overnight. Patient's blood pressure has stabilized currently 122/68. ?Cardiology Recommends holding blood pressure medication at this time with close outpatient follow-up. ?Creatinine has increased from 1.5-1.7 after diuretics. Echo currently pending . Patient does not look clinically volume overloaded, no edema, no shortness of breath, no pleural effusions on x-ray, lungs CTA bilaterally #Hyperlipidemia ? LDL goal less than 55, LDL currently 76. Increase atorvastatin from 20 mg to 40 mg daily. ?Patient states that PCP ordered Neil injection for hyperlipidemia, waiting for insurance approval. #Diabetes, type I ?Patient recently prescribed a insulin pump, patient's PCP saw her yesterday and plans to work on better education for pump use. Patient was previously using insulin pen. ?Patient also takes Jardiance 10 mg daily Exam Data for Last 24 hours Vital signs and Labs for Last 24 Hours: Temp Pulse Resp BP Pulse Ox O2 Del Method O2 Flow Rate 97.5 F L 71 20 144/84 H 94 L Room Air 2 11/03/24 11:33 11/03/24 11:20 11/03/24 11:15 11/03/24 11:20 11/03/24 11:20 11/03/24 11:20 11/03/24 06:51 Laboratory Results - last 24 hr 11/02/24 16:28: WBC 7.8, RBC 5.01, Hgb 14.9, Hct 42.1, MCV 84.0, MCH 29.7, MCHC 35.4, RDW 14.4, Plt Count 293, MPV 10.0, Neut % (Auto) 66.8, Lymph % (Auto) 25.6, Hall % (Auto) 4.9, Eos % (Auto) 1.9, Baso % (Auto) 0.4, Neut # (Auto) 5.2, Lymph # (Auto) 2.0, Hall # (Auto) 0.4, Eos # (Auto) 0.2, Baso # (Auto) 0.0, PT 10.8, INR 0.97, APTT 22.7 L, Sodium 139, Potassium 3.7, Chloride 99, Carbon Dioxide 28, Anion Gap 15.7 H, BUN 22 H, Creatinine 1.50 H, Estimated Creat Clear 47, Estimated GFR 36 L, Est GFR ( Amer) 44 L, Glucose 267 H, Hemoglobin A1c 8.3 H, Calcium 9.1, Magnesium 1.8, Total Bilirubin 0.5, AST 34, ALT 22, Alkaline Phosphatase 68, Troponin I 0.03, NT-Pro-B Natriuret Pep 3130 H, Total Protein 8.8 H D, Albumin 4.8, Globulin 4.0 H, Albumin/Globulin Ratio 1.2, Lipase 231, TSH 1.49, Thyroxine (T4) 6.4, HCV Ab CHI w/Rflx PCR Qn Negative, HIV Ag/Ab Combo Qual Negative 11/02/24 16:45: VBG pH 7.30 L, VBG pCO2 55.2 H, VBG pO2 30.9, VBG HCO3 26.6, VBG Total CO2 28.2 H, VBG O2 Saturation 54.6, VBG Base Excess 0.1, VBG Lactic Acid 1.8 11/02/24 19:57: Lactate 1.4 11/02/24 21:38: POC Glucose 153 H 11/02/24 22:00: Troponin I 0.03 11/03/24 01:30: Troponin I 0.03 11/03/24 05:15: POC Glucose 228 H 11/03/24 05:16: WBC 6.8, RBC 5.01, Hgb 14.7, Hct 42.0, MCV 83.8, MCH 29.3, MCHC 35.0, RDW 14.4, Plt Count 278, MPV 10.0, Neut % (Auto) 88.5 H, Lymph % (Auto) 9.9 L, Hall % (Auto) 0.9 L, Eos % (Auto) 0.0 L, Baso % (Auto) 0.3, Neut # (Auto) 6.0, Lymph # (Auto) 0.7, Hall # (Auto) 0.1, Eos # (Auto) 0.0, Baso # (Auto) 0.0, Sodium 137, Potassium 3.9, Chloride 98, Carbon Dioxide 26, Anion Gap 16.9 H, BUN 27 H, Creatinine 1.70 H, Estimated Creat Clear 41, Estimated GFR 31 L, Est GFR ( Amer) 38 L, Glucose 230 H, Calcium 10.0, Phosphorus 5.1 H, Magnesium 2.2 D, Total Bilirubin 0.5, AST 22 D, ALT 19, Alkaline Phosphatase 69, Total Protein 7.3, Albumin 4.2 D, Globulin 3.1, Albumin/Globulin Ratio 1.4, Triglycerides 111, Cholesterol 178, LDL Cholesterol Direct 76.37 L, VLDL Cholesterol 22, HDL Cholesterol 54, Cholesterol/HDL Ratio 3.3 I & O for Last 24 hours: Intake & Output 10/31/24 11/01/24 11/02/24 07/01/25 23:59 23:59 23:59 23:59 Intake Total 4.891 / 4.891 652.569 / 652.569 Output Total 1000 / 1000 0 / 0 Balance -995.109 / -995.109 652.569 / 652.569 Weight 69.354 kg Constitutional Constitutional: no acute distress *Routine HEENT Exam Head: Present normocephalic Eye: Present EOMI and PERRL ENT: Present mucous membranes moist *Routine Neck Exam Neck: Present supple and full ROM; Absent JVD *Routine Respiratory Exam Respiratory: Present CTA bilaterally, able to speak in complete sentences and symmetric chest movement *Routine Cardiovascular Exam Cardiovascular: Present RRR *Routine Abdominal Exam Abdominal: Present soft and normoactive bowel sounds; Absent tenderness or distended *Routine Extremities Exam Extremities: Present pulses intact and normal capillary refill; Absent edema *Routine Skin Exam Skin: Present intact and dry Comments: Right groin cath site with dressing *Routine Neurological Exam Neurological: Present alert, oriented X3 and normal speech Results Data Completed and Pending Labs on day of discharge: Labs from last 24 hours 11/03/24 11/03/24 11/03/24 05:16 05:15 01:30 WBC 6.8 RBC 5.01 Hgb 14.7 Hct 42.0 MCV 83.8 MCH 29.3 MCHC 35.0 RDW 14.4 Plt Count 278 MPV 10.0 Neut % (Auto) 88.5 H Lymph % (Auto) 9.9 L [place] % (Auto) 0.9 L Eos % (Auto) 0.0 L Baso % (Auto) 0.3 Neut # (Auto) 6.0 Lymph # (Auto) 0.7 Hall # (Auto) 0.1 Eos # (Auto) 0.0 Baso # (Auto) 0.0 PT INR APTT VBG pH VBG pCO2 VBG pO2 VBG HCO3 VBG Total CO2 VBG O2 Saturation VBG Base Excess VBG Lactic Acid Sodium 137 Potassium 3.9 Chloride 98 Carbon Dioxide 26 Anion Gap 16.9 H BUN 27 H Creatinine 1.70 H Estimated Creat Clear 41 Estimated GFR 31 L Est GFR ( Amer) 38 L Glucose 230 H POC Glucose 228 H Hemoglobin A1c Lactate Calcium 10.0 Phosphorus 5.1 H Magnesium 2.2 D Total Bilirubin 0.5 AST 22 D ALT 19 Alkaline Phosphatase 69 Troponin I 0.03 NT-Pro-B Natriuret Pep Total Protein 7.3 Albumin 4.2 D Globulin 3.1 Albumin/Globulin Ratio 1.4 Triglycerides 111 Cholesterol 178 LDL Cholesterol Direct 76.37 L VLDL Cholesterol 22 HDL Cholesterol 54 Cholesterol/HDL Ratio 3.3 Lipase TSH Thyroxine (T4) HCV Ab CHI w/Rflx PCR Qn HIV Ag/Ab Combo Qual 11/02/24 11/02/24 11/02/24 22:00 21:38 19:57 WBC RBC Hgb Hct MCV MCH MCHC RDW Plt Count MPV Neut % (Auto) Lymph % (Auto) [place] % (Auto) Eos % (Auto) Baso % (Auto) Neut # (Auto) Lymph # (Auto) [place] # (Auto) Eos # (Auto) Baso # (Auto) PT INR APTT VBG pH VBG pCO2 VBG pO2 VBG HCO3 VBG Total CO2 VBG O2 Saturation VBG Base Excess VBG Lactic Acid Sodium Potassium Chloride Carbon Dioxide Anion Gap BUN Creatinine Estimated Creat Clear Estimated GFR Est GFR ( Amer) Glucose POC Glucose 153 H Hemoglobin A1c Lactate 1.4 Calcium Phosphorus Magnesium Total Bilirubin AST ALT Alkaline Phosphatase Troponin I 0.03 NT-Pro-B Natriuret Pep Total Protein Albumin Globulin Albumin/Globulin Ratio Triglycerides Cholesterol LDL Cholesterol Direct VLDL Cholesterol HDL Cholesterol Cholesterol/HDL Ratio Lipase TSH Thyroxine (T4) HCV Ab CHI w/Rflx PCR Qn HIV Ag/Ab Combo Qual 11/02/24 11/02/24 16:45 16:28 WBC 7.8 RBC 5.01 Hgb 14.9 Hct 42.1 MCV 84.0 MCH 29.7 MCHC 35.4 RDW 14.4 Plt Count 293 MPV 10.0 Neut % (Auto) 66.8 Lymph % (Auto) 25.6 Hall % (Auto) 4.9 Eos % (Auto) 1.9 Baso % (Auto) 0.4 Neut # (Auto) 5.2 Lymph # (Auto) 2.0 Hall # (Auto) 0.4 Eos # (Auto) 0.2 Baso # (Auto) 0.0 PT 10.8 INR 0.97 APTT 22.7 L VBG pH 7.30 L VBG pCO2 55.2 H VBG pO2 30.9 VBG HCO3 26.6 VBG Total CO2 28.2 H VBG O2 Saturation 54.6 VBG Base Excess 0.1 VBG Lactic Acid 1.8 Sodium 139 Potassium 3.7 Chloride 99 Carbon Dioxide 28 Anion Gap 15.7 H BUN 22 H Creatinine 1.50 H Estimated Creat Clear 47 Estimated GFR 36 L Est GFR ( Amer) 44 L Glucose 267 H POC Glucose Hemoglobin A1c 8.3 H Lactate Calcium 9.1 Phosphorus Magnesium 1.8 Total Bilirubin 0.5 AST 34 ALT 22 Alkaline Phosphatase 68 Troponin I 0.03 NT-Pro-B Natriuret Pep 3130 H Total Protein 8.8 H D Albumin 4.8 Globulin 4.0 H Albumin/Globulin Ratio 1.2 Triglycerides Cholesterol LDL Cholesterol Direct VLDL Cholesterol HDL Cholesterol Cholesterol/HDL Ratio Lipase 231 TSH 1.49 Thyroxine (T4) 6.4 HCV Ab CHI w/Rflx PCR Qn Negative HIV Ag/Ab Combo Qual Negative DS: Diagnosis Discharge Diagnosis (1) Hypertensive emergency: Status: Acute Code(s): I16.1 - Hypertensive emergency (2) CKD (chronic kidney disease): Status: Acute Code(s): N18.9 - Chronic kidney disease, unspecified (3) Hx of CABG: Status: Acute Code(s): Z95.1 - Presence of aortocoronary bypass graft (4) Status post left heart catheterization: Status: Acute Code(s): Z98.890 - Other specified postprocedural states Meds Home Medications and Allergies Home Medications ?Medication ?Instructions ?Recorded ?Confirmed ?Type 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 sensor (Dexcom G7 #9 ea 06/01/24 11/03/24 Rx Sensor device) 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,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,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 ea 06/01/24 11/03/24 Rx (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[employer]) clopidogrel 75 mg tablet (Plavix) 75 mg PO DAILY #90 tabs 06/03/24 11/03/24 Rx lancets 28 gauge (FreeStyle #100 ea 06/03/24 11/03/24 History Lancets) rosuvastatin 10 mg tablet (Crestor) 10 mg PO DAILY #30 tabs 06/03/24 11/03/24 Rx empagliflozin 10 mg tablet 10 mg PO DAILY #90 tabs 07/20/24 11/03/24 Rx (Jardiance) inclisiran 284 mg/1.5 mL 284 mg (1.5 mL) SQ [id number] 2 08/27/24 11/03/24 Rx subcutaneous syringe (Leqvio) doses #1.5 mL insulin pump cartridge,auto #1 ea 09/10/24 11/03/24 History dose,BT,G6/G7 with controller subcutaneous (Omnipod 5 G6-G7 Intro Kit(Gen 5) subcutaneous cartridge and controller) gabapentin 600 mg tablet 600 mg PO TID #90 tabs 09/18/24 11/03/24 Rx insulin pump cart,auto,BT,G6/7 #5 ea 10/16/24 11/03/24 Rx (Omnipod 5 G6-G7 Pods (Gen 5) subcutaneous cartridge) insulin lispro 100 unit/mL See Rx Instructions .Route .COMPLEX 11/03/24 11/03/24 History subcutaneous pen sertraline 50 mg tablet 50 mg PO DAILY 11/03/24 11/03/24 History New Prescriptions to Start Prescriptions: Allergies Allergy/AdvReac Type Severity Reaction Status Date / Time atorvastatin Allergy Severe lowers Verified 11/02/24 15:43 blood pressure aspirin (ASPIRIN) Allergy Intermediate I-HIVES Verified 11/02/24 15:43 latex (LATEX) Allergy Unknown RASH, HIVES Verified 11/02/24 15:43 midodrine AdvReac Severe Unknown Verified 11/03/24 08:13 allergy reaction Discharge Plan Follow up Plan Prescriptions/Medication Reconciliation: No Action (DME) 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 See Rx Instructions .Route Qty: 1 6RF Rx Instructions: As directed (DME) lancets [FreeStyle Lancets] 28 gauge misc See Rx Instructions .ROUTE .MEDSUPPLY Qty: 100 Rx Instructions: As directed clopidogrel [Plavix] 75 mg tablet 75 mg PO DAILY Qty: 90 3RF rosuvastatin [Crestor] 10 mg tablet 10 mg PO DAILY Qty: 30 5RF (DME) Omnipod 5 G6-G7 Intro Kt(Gen5) Cartridge See Rx Instructions .ROUTE .MEDSUPPLY Qty: 1 Rx Instructions: As directed (DME) Dexcom G7 Sensor Device See Rx Instructions .ROUTE .COMPLEX Qty: 9 0RF Dose Instruction: APPLY AND WEAR 1 SENSOR FOR 10 DAYS AND THEN CHANGE Rx Instructions: APPLY AND WEAR 1 SENSOR FOR 10 DAYS AND THEN CHANGE Jardiance 10 mg tablet 10 mg PO DAILY Qty: 90 3RF Leqvio 284 mg/1.5 mL syringe 284 mg SQ [id number] Qty: 1.5 0RF gabapentin 600 mg tablet 600 mg PO TID Qty: 90 3RF (DME) Omnipod 5 G6-G7 Pods (Gen 5) Cartridge See Rx Instructions .Route Qty: 5 6RF Rx Instructions: As directed sertraline 50 mg tablet 50 mg PO DAILY insulin lispro 100 unit/mL insulin pen See Rx Instructions .ROUTE .COMPLEX Rx Instructions: sliding scale DOSE SUBCUTANEOUSLY BEFORE MEALS (max daily DOSE is 100 UNITS EVERY 3 DAYS DIRECTED FOR omnipod) Patient Discharge Instructions Print Language: Bulgarian Providers Primary Care Provider: Lmia Shannon Admit Provider: Navin Freire Attending Provider: Navin Freire
--- NOTE | 2024-11-03 17:03 | CA_ITS ---
FINAL REPORT TECHNIQUE: Ultrasound images of the kidneys were obtained. Duplex Doppler of the renal arteries, RAR and RI also obtained. Spectral analysis was performed. CLINICAL HISTORY: HTN, CKD IV, CAD-CABG FINDINGS: Aortic velocity is measured at 118 cm/sec. The right kidney measures 9.7 cm in length. No hydronephrosis, cortical thinning, or mass. RAR is 0.81. Peak systolic velocity is 95 cm/sec. RI is 0.65-0.72. No evidence of renal artery stenosis or chronic renal disease. The left kidney measures 9.7 cm in length. No hydronephrosis, cortical thinning, or mass. RAR is 1.34. Peak systolic velocity is 157 cm/sec. RI is 0.71-0.76. No evidence of renal artery stenosis or chronic renal disease. IMPRESSION: Normal renal ultrasound. Less than 50% renal artery stenosis bilaterally. Reviewed, Interpreted and Dictated by Santos Hendrickson MD Transcribed by Ashanti Hernandez Authenticated and [facility]
--- NOTE | 2024-11-03 17:44 | PC.NURSE ---
patient left the ICU to go to [facility] room 212 @[id number] via wheelchair
--- NOTE | 2024-11-03 20:33 | CA_ITS ---
APPROVED REPORT EXAM: Comprehensive 2D, Doppler, and color-flow Echocardiogram [employer] Installer: Manuela Nelson, RCS, RVS Ht: 5 ft 3 in Wt: 155lbs BSA: 1.74 BP: 127/79 mmHg Indications: CAD-CABG, CKD IV, Strokes, HTN, Smoker 2D Dimensions IVSd 1.56 cm F: 0.6-1.0 LVEF (Visual) 53.00 % PWd 1.17 cm F: 0.6 - 1.0 LA Volume 35.90 mL LVDd 4.70 cm F: 3.9 - 5.3 LA Volume Index 20.63 mL/m2 (M/F) 16-34 LVDs 3.42 cm F: 2.2 - 3.5 Left Atrium 3.57 cm F: 2.7 - 3.8 M-Mode Dimensions RVDd 2.24 cm (0.9-2.6) LA Diam 3.53 cm (1.9-4.0) LVDd 4.49 cm (3.5-5.7) LVDs 3.15 cm (3.5-5.7) IVSd 1.21 cm (0.6-1.1) PWd 1.07 cm (0.6-1.1) EF (Teich) 57.20% EPSs 0.77 cm FS 29.80% EDV (Teich) 92.00 mL ESV (Teich) 39.40 mL LV Diastology E Decel Time 202 (160-240 msec) E/A Ratio 0.80 MED A' 7.10 cm/s LAT A' 7.80 cm/s Aortic Valve RUSTY Index 0.90 cm2/m2 AoV Peak Daniel. 128.0 (50-130 cm/s) AI PHT 364.00 ms AO Peak GR. 6.60 mmHg AO Mean GR. 3.30 (<5 mmHg) AO VTI 24.3 (18-25 cm) RUSTY (VTI) 1.61 (2.5-4.5 cm2) Mitral Valve MV A Velocity 70.0 (40-130 cm/s) E/A Ratio 0.80 Tricuspid Valve TR P. Velocity 141.00 cm/s RAP Estimate 10.00 mmHg RVSP 18.00 mmHg Left Ventricle The left ventricle is normal size. The left ventricular systolic function is normal. The left ventricular ejection fraction is within the normal range. There is increased LV wall thickness. There is normal LV segmental wall motion. Transmitral Doppler flow pattern suggests impaired LV relaxation. LVEF is 55%. Right Ventricle The right ventricle is normal size. The right ventricular systolic function is normal. Atria The left atrium size is normal. The right atrium size is normal. There is no Doppler evidence of interatrial shunt. Aortic Valve The aortic valve opens well. There is no aortic valvular stenosis. Mild aortic regurgitation. Mitral Valve The mitral valve is normal in structure. No evidence of mitral valve stenosis. Trace mitral regurgitation. Tricuspid Valve Tricuspid valve is grossly normal in structure and function. Mild tricuspid regurgitation. RVSP is normal. Pulmonic Valve The pulmonary valve is normal in structure. Trace pulmonic regurgitation. Great Vessels The aortic root is normal in size. IVC is normal in size and collapses >50% with inspiration. Pericardium There is no pericardial effusion. Other Information Study Quality: Fair Conclusion Normal biventricular systolic function. Mild AI, mild TR. Electronically signed by : Tomasa Ortiz MD 11/04/2024 00:03:03
[2024-11-03] MEDS: ATORVASTATIN 20MG TABLET 20 MG PO (21:10)
--- NOTE | 2024-11-03 21:13 | PC.NURSE ---
Addendum entered by Sheeba Peralta RN 11/04/24 07:32: At 06:32, the patient's glucose reading via Dexcom was 255. At 07:13, prior to eating breakfast, the patient's glucose reading via Dexcom was 264; her insulin pump automatically administered a Humalog bolus of 3.35 units. Original Note: At 19:50, Paddy Wilson MD was made aware that the patient has an existing Dexcom and continuous insulin pump. He stated that the patient is allowed to use her Dexcom for glucose checks and insulin pump for coverage, for the patient has been refusing insulin coverage ordered/provided by this facility per JUL. At 19:26, the patient's glucose reading via Dexcom was 400; her insulin pump automatically administered a Humalog bolus of 3.95 units. At 21:08, the patient stated that her reading was 345. She explained that at bedtime, her insulin pump continuously administers 0.5 units once every hour. Upon asking + informing her that she has (Humalog) sliding scale coverage and (Lantus) long-acting coverage, the patient verbally refused and stated that she would like to use her personal insulin pump for glucose coverage.
[2024-11-04] VITALS: BP 124/63; PULSE 60; PULSE 68; RESP 16; TEMP 36.4; O2SAT 96
[2024-11-04 04:00] VITALS: BP 126/64; PULSE 68; PULSE 70; RESP 16; TEMP 36.6; O2SAT 95; BMI 28.2
--- NOTE | 2024-11-04 04:20 | PC.NURSE ---
Addendum entered by Sheeba Peralta RN 11/04/24 04:40: Vital signs stable; blood pressures within desirable range. Original Note: Patient is alert and oriented x4. She was observed to have eyes closed, respirations even and unlabored on room air, and no apparent distress throughout the majority of the night. Right femoral cath site was assessed this shift; bruising was noted around the area. Patient denied any pain within the cath site; pulses +2. No drainage or bleeding noted. Dexcom noted to patient's right upper thigh. Confirmation of using Dexcom and insulin pump sought out during this shift (see previous note); patient refused facility-provided insulin (sliding scale and long-acting coverages). Other scheduled medications were administered as appropriately per JUL. Auscultation of her heart, lungs, and bowels within normal findings. Patient ambulates independently in her room/to the bathroom without difficulties. Did not require any supplemental oxygenation during resting periods this shift, oxygen saturations > 90%. On telemetry. At this time, the patient is resting in bed without any complaints. No new needs thus far. Call light within reach.
[2024-11-04 06:43] LABS: Hematocrit 36.1 % (37.0-47.0); Hemoglobin 12.0 g/dL (12.2-16.2); Immature Granulocytes % 0.3 %; Mean Corpuscular HGB Conc 33.2 g/dL (31.8-35.4); Mean Corpuscular Hemoglobin 28.4 pg (27.0-31.2); Mean Corpuscular Volume 85.3 fl (81-99); Nucleated Red Blood Cells % 0 %; Platelet Count 228 K/mm3 (142-424); Red Blood Count 4.23 M/mm3 (4.20-5.40); Red Cell Distribution Width-SD 44.3 fL; White Blood Count 9.5 K/mm3 (4.8-10.8)
[2024-11-04 07:06] LABS: Alanine Aminotransferase 15 U/L (12-78); Albumin Level 3.5 g/dl (3.5-5.0); Albumin/Globulin Ratio 1.3 (1.1-1.8); Alkaline Phosphatase 73 U/L (38-126); Anion Gap 15.8 mEq/L (5-15); Aspartate Amino Transferase 21 U/L (14-36); Bilirubin,Total 0.3 mg/dl (0.2-1.3); Blood Urea Nitrogen 52 mg/dl (7-17); Calcium 7.7 mg/dl (8.4-10.2); Carbon Dioxide 25 mmol/L (22.0-30.0); Chloride 94 mmol/L (98-107); Creatinine Clearance Estimated 20 mL/min (50-200); Creatinine,Serum 3.70 mg/dl (0.52-1.04); Estimated Glomerular Filt Rate 13 ml/min (>60); GFR (African American) 15 ML/MIN (>60); Globulin 2.6 g/dL (1.3-3.2); Glucose 214 mg/dl (74-100); Magnesium 2.2 mg/dl (1.6-2.3); Potassium 3.8 mmoL/L (3.5-5.1); Sodium 131 mmol/L (136-145); Total Protein,Serum 6.1 g/dl (6.3-8.2)
[2024-11-04 08:00] VITALS: BP 138/73; PULSE 64; PULSE 70; RESP 16; TEMP 36.5; O2SAT 97
[2024-11-04] MEDS: LACTATED RINGERS 1000ML 1,000 ML 150 ML IV (08:10)
[2024-11-04] MEDS: SERTRALINE 50MG TABLET 50 MG PO (08:11)
[2024-11-04] MEDS: GABAPENTIN 600MG TABLET 600 MG PO ×3 (08:11→20:36)
[2024-11-04] MEDS: CLOPIDOGREL 75MG TAB 75 MG PO (08:11)
[2024-11-04] MEDS: EMPAGLIFLOZIN 10MG TABLET 10 MG PO (08:11)
[2024-11-04] MEDS: BISOPROLOL 5MG TABLET 5 MG PO (08:11)
[2024-11-04] MEDS: HEPARIN SODIUM 5,000 UNIT/ML VIAL 5000 UNIT SUBCUT ×3 (08:13→20:37)
[2024-11-04] MEDS: ACETAMINOPHEN 325MG TAB 650 MG PO (08:13)
[2024-11-04 08:56] LABS: POC Glucose,Bedside 324 (70-110)
--- NOTE | 2024-11-04 09:13 | XR_ITS ---
FINAL REPORT CLINICAL HISTORY: shortness of breath COMPARISON: None FINDINGS: The heart size is normal. Median sternotomy wires are present. There is no focal infiltrate or edema. There are no pleural effusions. There is no pneumothorax. There is no osseous abnormality. IMPRESSION: No acute cardiopulmonary process Reviewed, Interpreted and Dictated by Santos Hendrickson MD Transcribed by Ashanti Hernandez Authenticated and . [facility]
--- NOTE | 2024-11-04 10:21 | P.PN_ITS ---
Subjective Subjective Date: 11/04/24 Time: 08:00 Principal diagnosis: Chest pain and hypertension. Interval history: Patient is status post left heart catheterization yesterday please see report. Morning labs reviewed. Exam Data for Last 24 hours Vital signs and Labs for Last 24 Hours: Temp Pulse Resp BP Pulse Ox O2 Del Method O2 Flow Rate 97.7 F 64 16 138/73 97 Room Air 1 11/04/24 08:00 11/04/24 08:00 11/04/24 08:00 11/04/24 08:00 11/04/24 08:00 11/04/24 08:00 11/03/24 12:30 Laboratory Results - last 24 hr 11/03/24 05:15: POC Glucose 228 H 11/03/24 12:12: POC Glucose 194 H 11/03/24 16:01: POC Glucose 324 H* 11/04/24 05:34: WBC 9.5 D, RBC 4.23, Hgb 12.0 L, Hct 36.1 L, MCV 85.3, MCH 28.4, MCHC 33.2, RDW 14.4, Plt Count 228, MPV 10.4, Neut % (Auto) 70.7, Lymph % (Auto) 22.1, [place] % (Auto) 5.4, Eos % (Auto) 1.1, Baso % (Auto) 0.4, Neut # (Au to) 6.7, Lymph # (Auto) 2.1, [place] # (Auto) 0.5, Eos # (Auto) 0.1, Baso # (Auto) 0.0, Sodium 131 L, Potassium 3.8, Chloride 94 L, Carbon Dioxide 25, Anion Gap 15.8 H, BUN 52 H D, Creatinine 3.70 H D, Estimated Creat Clear 20, Estimated GFR 13 L*, Est GFR ( Amer) 15 L* D, Glucose 214 H, Calcium 7.7 L, Magnesium 2.2, Total Bilirubin 0.3, AST 21, ALT 15, Alkaline Phosphatase 73, Total Protein 6.1 L, Albumin 3.5 D, Globulin 2.6, Albumin/Globulin Ratio 1.3 I & O for Last 24 hours: Intake & Output 11/01/24 11/02/24 11/03/24 11/04/24 23:59 23:59 23:59 23:59 Intake Total 4.891 / 4.891 1432.569 / 1672.569 480 / 480 Output Total 1000 / 1000 100 / 100 75 / 75 Balance -995.109 / -705.734 9789.569 / 1572.569 405 / 405 Weight 152 lb 14.4 oz 159 lb 2 oz Microbiology Reports for the Last 24 Hours: Microbiology 11/02/24 20:41 Rectum CRE Surveillance Culture - Final Negative Constitutional Constitutional: no acute distress *Routine Respiratory Exam Respiratory: Present CTA bilaterally and symmetric chest movement *Routine Cardiovascular Exam Cardiovascular: Present RRR, Normal S1 and Normal S2 *Routine Abdominal Exam Abdominal: Present soft and normoactive bowel sounds; Absent tenderness *Routine Extremities Exam Extremities: Present full ROM and normal capillary refill; Absent edema Comments: Right groin site-dressing is intact. Minimal swelling and bruising is present. Strong DP and TP pulses present. *Routine Skin Exam Skin: Present intact, dry and warm Detailed Neck Exam: Thyroids Thyroid: Absent bruit Progress Note: A&P Assessment and plan (1) Hypertensive emergency: Status: Acute (2) CKD (chronic kidney disease): Status: Acute (3) Hx of CABG: Status: Acute (4) Status post left heart catheterization: Status: Acute Assessment and Plan Assessment and Plan for All Diagnoses:: History of coronary artery disease History of CABG x 3 in 2019 Normal biventricular systolic function with mild AI and TR 7 to Left heart catheterization 11/03/2024 medical management please see full cath report. Continue Plavix and statin Hypertensive emergency-resolved Blood pressure 138/73. Mild left renal artery stenosis noted on cath from 11/03 Continue nifedipine 30 mg p.o. daily and bisoprolol 5 mg p.o. daily Chronic kidney disease Creatinine increased to 3.7 today, baseline 1.7-1.9 Hyperlipidemia LDL goal less than 55, LDL is 76 Increase atorvastatin to 20 mg p.o. daily Diabetes mellitus A1c is 8.3. Will defer management to PCP. Continue Jardiance 10 mg p.o. daily CV summary 11/04/2024: Patient is status post medical management heart cath normal biventricular systolic function noted. Creatinine is significantly elevated at 3.7 today from a baseline of 1.7-1.9 after IV contrast and diuretics. Patient is currently receiving gentle fluids. Will continue to monitor kidney function at this time. Cardiac meds: Plavix 75 mg p.o. daily Atorvastatin 20 mg p.o. daily Bisoprolol 5 mg p.o. daily Jardiance 10 mg p.o. daily Nifedipine 30 mg p.o. daily
--- NOTE | 2024-11-04 10:23 | P.PN_ITS ---
<Statement entered by Navin Freire MD - 11/04/24 13:58> Rounded on patient after nurse practitioner. Personally examined and interviewed patient. Agree with exam findings and care plan as documented. Adjusted her OmniPod today. Increased her correction factor to 35. Therefore 1 unit for every 35 above 150. Previously had been 50:1. Also decreased carb ratio to 40 g to 1 unit. 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 She does state that she gets headaches/migraines on a regular basis. Will start Fioricet. Patient surgical site has some bruising. But overall looks good. Plans to stay overnight for continued monitoring of kidney function. Medical Exam Vital signs and Labs for Last 24 Hours: Vital Signs Temp Pulse Pulse Pulse Resp BP BP 11/04/24 08:00 70 11/04/24 08:00 97.7 F 64 16 138/73 11/04/24 06:35 11/04/24 05:00 11/04/24 04:00 97.8 F 68 16 126/64 11/04/24 04:00 70 11/04/24 03:00 11/04/24 01:00 11/04/24 00:00 60 11/04/24 00:00 97.6 F 68 16 124/63 11/03/24 23:00 11/03/24 21:00 11/03/24 20:00 11/03/24 20:00 70 11/03/24 20:00 98.2 F 72 16 129/70 11/03/24 18:50 11/03/24 17:30 97.9 F 77 17 102/53 L 11/03/24 17:00 11/03/24 16:30 97.9 F 68 17 109/64 L 11/03/24 16:00 98.0 F 75 16 109/64 L 11/03/24 16:00 71 11/03/24 15:30 97.8 F 66 17 102/59 L 11/03/24 14:57 11/03/24 14:30 62 17 123/65 11/03/24 14:14 98.1 F 62 14 123/70 11/03/24 14:00 97.8 F 64 17 104/72 L 11/03/24 14:00 11/03/24 14:00 98.1 F 65 14 104/72 L 11/03/24 13:30 97.8 F 65 17 116/67 11/03/24 13:00 97.7 F 66 17 118/65 11/03/24 13:00 11/03/24 12:30 97.7 F 68 16 121/67 11/03/24 12:15 97.7 F 68 16 122/68 11/03/24 12:02 71 11/03/24 12:00 97.6 F 72 16 118/71 11/03/24 11:45 97.6 F 67 15 125/73 11/03/24 11:33 97.5 F L 11/03/24 11:30 97.5 F L 72 14 132/76 11/03/24 11:20 71 144/84 H 11/03/24 11:15 71 20 142/79 H 11/03/24 11:12 72 20 141/83 H 11/03/24 11:06 73 20 133/79 11/03/24 11:06 72 20 133/84 11/03/24 11:01 74 75 20 137/76 Pulse Ox O2 Del Method O2 Flow Rate 11/04/24 08:00 11/04/24 08:00 97 Room Air 11/04/24 06:35 Room Air 11/04/24 05:00 Room Air 11/04/24 04:00 95 Room Air 11/04/24 04:00 11/04/24 03:00 Room Air 11/04/24 01:00 Room Air 11/04/24 00:00 11/04/24 00:00 96 Room Air, Nasal Cannula 11/03/24 23:00 Room Air 11/03/24 21:00 Room Air 11/03/24 20:00 Room Air 11/03/24 20:00 11/03/24 20:00 97 Room Air 11/03/24 18:50 Room Air 11/03/24 17:30 95 Room Air 11/03/24 17:00 Room Air 11/03/24 16:30 95 Room Air 11/03/24 16:00 94 L Room Air 11/03/24 16:00 11/03/24 15:30 95 Room Air 11/03/24 14:57 Room Air 11/03/24 14:30 94 L Room Air 11/03/24 14:14 94 L Room Air 11/03/24 14:00 95 Room Air 11/03/24 14:00 95 Room Air 11/03/24 14:00 95 Room Air 11/03/24 13:30 93 L Room Air 11/03/24 13:00 95 Room Air 11/03/24 13:00 Room Air 11/03/24 12:30 93 L Nasal Cannula 1 11/03/24 12:15 90 L Nasal Cannula 2 11/03/24 12:02 11/03/24 12:00 92 L Nasal Cannula 1 11/03/24 11:45 93 L Nasal Cannula 1 11/03/24 11:33 11/03/24 11:30 94 L Nasal Cannula 1 11/03/24 11:20 94 L Room Air 11/03/24 11:15 96 Room Air 11/03/24 11:12 94 L Room Air 11/03/24 11:06 92 L Room Air 11/03/24 11:06 94 L Room Air 11/03/24 11:01 90 L Room Air Intake and Output 11/03/24 11/04/24 11/04/24 23:59 07:59 15:59 Intake Total 360 / 1672.569 240 / 480 240 / 480 Output Total 100 / 100 75 / 75 Balance 260 / 1572.569 165 / 405 240 / 405 Intake: Intake, Oral Amount 360 / 1616 240 / 480 240 / 480 Output: Output, Urine Amount 100 / 100 75 / 75 Other: Number of Voids 0 Number of Unmeasured Voids 0 0 Weight 72.178 kg Patient Weight 11/04/24 23:59 Weight 72.178 kg Laboratory Results - last 24 hr 11/03/24 05:15: POC Glucose 228 H 11/03/24 12:12: POC Glucose 194 H 11/03/24 16:01: POC Glucose 324 H* 11/04/24 05:34: WBC 9.5 D, RBC 4.23, Hgb 12.0 L, Hct 36.1 L, MCV 85.3, MCH 28.4, MCHC 33.2, RDW 14.4, Plt Count 228, MPV 10.4, Neut % (Auto) 70.7, Lymph % (Auto) 22.1, [place] % (Auto) 5.4, Eos % (Auto) 1.1, Baso % (Auto) 0.4, Neut # (Auto) 6.7, Lymph # (Auto) 2.1, [place] # (Auto) 0.5, Eos # (Auto) 0.1, Baso # (Auto) 0.0, Sodium 131 L, Potassium 3.8, Chloride 94 L, Carbon Dioxide 25, Anion Gap 15.8 H, BUN 52 H D, Creatinine 3.70 H D, Estimated Creat Clear 20, Estimated GFR 13 L*, Est GFR ( Amer) 15 L* D, Glucose 214 H, Calcium 7.7 L, Magnesium 2.2, Total Bilirubin 0.3, AST 21, ALT 15, Alkaline Phosphatase 73, Total Protein 6.1 L, Albumin 3.5 D, Globulin 2.6, Albumin/Globulin Ratio 1.3 I & O for Labs for Last 24 Hours: Intake & Output 11/01/24 11/02/24 11/03/24 11/04/24 23:59 23:59 23:59 23:59 Intake Total 4.891 / 4.891 1432.569 / 1672.569 480 / 480 Output Total 1000 / 1000 100 / 100 75 / 75 Balance -995.109 / -109.639 8037.569 / 1572.569 405 / 405 Weight 69.354 kg 72.178 kg Microbiology Reports for the Last 24 Hours: Microbiology 11/02/24 20:41 Rectum CRE Surveillance Culture - Final Negative Assessment and Plan *Assessment and plan (1) Status post left heart catheterization: Status: Acute Category: Medical Code(s): Z98.890 - Other specified postprocedural states (2) Hypertensive emergency: Status: Acute Category: Medical Code(s): I16.1 - Hypertensive emergency (3) Hx of CABG: Status: Acute Category: Surgical Code(s): Z95.1 - Presence of aortocoronary bypass graft (4) CKD (chronic kidney disease): Status: Acute Category: Medical Code(s): N18.9 - Chronic kidney disease, unspecified (5) Elevated LDL cholesterol level: Status: Acute Category: Medical Code(s): E78.00 - Pure hypercholesterolemia, unspecified (6) Migraine: Status: Acute Category: Medical Code(s): G43.909 - Migraine, unspecified, not intractable, without status migrainosus Plan Ms. Head is a 54-year-old female who presented yesterday to the emergency department With chest pain that radiated to her left jaw and left shoulder and shortness of breath. Blood pressure was found to be 246/129, heart rate 93, EKG normal sinus rhythm. She also had a elevated creatinine of 1.5. She does state that she has a history of CKD. BNP was elevated at 3100. Patient did state that normally she has low blood pressure 90s over 60s. She also states that she occasionally has to take salt tablets to regulate her hypotension. Given the complexity of her blood pressure and labs patient was admitted for further evaluation by cardiology. Patient was taken to the [facility] today for a left heart cath, she received no intervention. #Hypertensive emergency #Chronic kidney disease ?Patient has history of a CABG, currently on Plavix 75 mg daily. Has aspirin allergy. ?Patient was started on a nitroprusside drip, that was weaned. Patient has been normotensive since that time, without episodes of hypertension. ?Cardiology Recommends holding blood pressure medication at this time with close outpatient follow-up. ?Creatinine on admission was 1.5, trending upward to 1.7. Patient did have multiple CTAs and a heart cath, creatinine now 3.7. Patient given 1 L LR at 150 mL/hr to help support kidney clearance. ?Echo shows EF of 55%. ?Patient does not look clinically volume overloaded, no edema, no shortness of breath, no pleural effusions on x-ray, lungs CTA bilaterally ?Plans to monitor patient on cardiac telemetry overnight. Monitor for bleeding. - Will recheck CBC, CMP in the a.m. ? Patient complains of moderate surgical site pain, [place] 5/325 mg every 6 hours as needed. Monitor for toxicity. #Hyperlipidemia ? LDL goal less than 55, LDL currently 76. Increase atorvastatin from 20 mg to 40 mg daily. ?Patient states that PCP ordered Neil injection for hyperlipidemia, waiting for insurance approval. #Diabetes, type I ?Patient recently prescribed a insulin pump, patient's PCP saw her yesterday and plans to work on better education for pump use. Patient was previously using insulin pen. ?Patient also takes Jardiance 10 mg daily ?Dietitian consult for carbohydrate counting information. #Migraine headache ?Patient states that she occasionally has migraines/headaches. She has tried many medications in the past nothing has really worked for her. ?Will start Fioricet every 6 hours as needed Full code Cardiac diet Ambulate as tolerated after cath restrictions Heparin 5000 units SQ 3 times daily for VTE
[2024-11-04 11:29] VITALS: BMI 28.2
[2024-11-04] MEDS: BUTALB/ACETAMINOPHEN/CAFFEINE 50MG/325MG/40MG TAB 1 EACH PO (11:37)
--- NOTE | 2024-11-04 11:58 | PC.NURSE ---
Addendum entered by Phoebe Su RN 11/04/24 16:05: pt blood sugar per dexcom at this time-251- insulin pump administered 2.75 units per pt Original Note: pt blood sugar at 0815 was 264 per her dexcom- pt stated her insulin pump delivered 1.65 units pt blood sugar at 1002 was 257 per her dexcom- pt stated her insulin pump delivered 3 units pt blood sugar at 1140 was 200 per her dexcom- pt insulin pump did not deliver any insulin at this time
[2024-11-04 12:00] VITALS: BP 141/77; PULSE 66; PULSE 70; RESP 16; TEMP 36.6; O2SAT 95
--- NOTE | 2024-11-04 13:55 | DIET.NUTRFU ---
RD consulted for diabetic instruction- handouts were provided and reviewed see assessment for further information
[2024-11-04 14:29] LABS: Chloride 94 mmol/L (98-107); Potassium 3.9 mmoL/L (3.5-5.1); Sodium 132 mmol/L (136-145)
[2024-11-04 14:32] LABS: Anion Gap 17.9 mEq/L (5-15); Blood Urea Nitrogen 58 mg/dl (7-17); Carbon Dioxide 24 mmol/L (22.0-30.0); Creatinine Clearance Estimated 17 mL/min (50-200); Estimated Glomerular Filt Rate 11 ml/min (>60); GFR (African American) 13 ML/MIN (>60); Glucose 188 mg/dl (74-100)
[2024-11-04 14:33] LABS: Calcium 8.1 mg/dl (8.4-10.2)
[2024-11-04 14:42] LABS: Creatinine,Serum 4.20 mg/dl (0.52-1.04)
[2024-11-04 16:00] VITALS: BP 125/70; PULSE 60; PULSE 63; RESP 16; TEMP 36.4; O2SAT 96
[2024-11-04] MEDS: prednisoLONE 1% OPTH SOL 5ML OP (16:02)
--- OUTSIDE RECORDS SUMMARY | 2024-11-04 16:35 | XMS_ITS | Clinical Summary ---
Author Organization [facility] Address [address] [place] [address] Care Team Providers Care Draw Press Operator Name Role Phone Reji Velazquez Primary Care Provider [phone] Abhijeet Espinoza MD Unavailable [phone] Allergies Active Allergy Reactions Criticality Noted Date [...] Description 03/26/2025 10:00 AM EST Office Visit [facility] [address] [place] [id number] Noé Kinsey MD [address] [place] [phone] Health Maintenance Due Date Last Done [...] 2019 [facility]-Zoster Vaccines (1 of 2) 2019 [id number] Vaccine (1 - 20 24- season) 2024 [facility]-Influenza Vaccine (#1) 2025 [facility]-Hepatitis A Vaccines Aged Out 03/18/2018 [...] of CAD and tomosynthesis. Dictated By: Caitlyn Frzaier M.D. Page 1 of 2 Patient Name:Janay Ellis : 1970 Age: 48 Gender: femaleDate of Service: 01/27/2019 eferring Phy:Thelma ValerioAccount: [id number] Verified By: Caitlyn Frazier M.D. on 01/28/2019 [...] on Jan 28 2019 3:57P Transcribed by: [facility] on Jan 28 2019 3:57P Dictated by: CAITLYN FRAZIER M.D. on Jan 28 2019 3:57P Patient Name:Janay Ellis : 1970 Age: 48 Gender: femaleDate of Service: 01/27/2019 eferring Phy:Thelma ValerioAccount: [id number] Thelma Valerio , FINAL REPORT PROCEDURE: Tomosynthesis [...] Gender: femaleDate of Service:01/27/2019 eferring Phy:Thelma ValerioAccount: [id number] Thelma Carrion Teodoro , FINAL REPORT PROCEDURE: Tomosynthesis Bilateral Screening [...] Gender: femaleDate of Service:01/27/2019 eferring Phy:Thelma ValerioAccount: [id number] Verified By: Caitlyn Frazier M.D. on 01/28/2019 at 03:52:08 PM Page 2 of 2 us Historical Provider MD REID BI PROCEDURES Final R esult from Last 3 Months or Most Recently Relevant to Health Maintenance Insurance [employer] Care Teams Draw Press Operator Relationship Specialty Start Date End Date Reji Velazquez DO [address] [place] [address] PCP - General 07/28/24 Abhijeet Espinoza MD [address] [place] [address] 07/28/24
--- OUTSIDE RECORDS SUMMARY | 2024-11-04 16:35 | XMS_ITS | Clinical Summary ---
Author Organization [facility] Address [address] [place] [address] Phone Care Team Providers Care Superior Court Justice Name Role Phone Abhijeet Joel APRN Primary Care Provider + Mario Walls MD Unavailable [phone] Allergies Active Allergy Reactions Criticality Noted [...] Strip 09/26/19 Active sodium chloride 1,000 mg [facility] Tablet, Soluble Take 1 Tablet by mouth 2 times daily. 60 Tablet 11 11/10/19 23 Active insulin syringe-needle U-100 0.3 mL 31 gauge x 15/64 [facility] SyringeIndicatio ns:Dyslipidemia associated with type 2 diabetes mellitus ([facility]) Use as directed to inject insulin. E11.65 100 Each 12/15/19 Active Insulin Etoile, Disposable, (NICOLASA PEN NEEDLE) 32 gauge x 5/32 [facility] NeedleIndication s:Dyslipidemia associated with type 2 diabetes mellitus ([facility]) Use with insulin 4 times daily 400 Each 1 12/18/19 23 Active Blood-Glucose Meter (FREESTYLE LITE METER) [facility] KitIndications:T ype 2 diabetes mellitus with stage 3a chronic kidney disease, with long-term current use of insulin ([facility]) 1 Kit by [facility].(Non-Drug; Combo Route) route 3 times daily. 1 Kit 05/29/19 Active Blood Sugar Diagnostic (FREESTYLE TEST) [facility] StripIndications :Type 2 diabetes mellitus with stage 3a chronic kidney disease, with long-term current use of insulin ([facility]) 1 Strip by [facility].(Non-Drug; Combo Route) route 3 times daily. 100 Each 05/29/19 24 Active Lancets [facility] MiscIndications: Type 2 diabetes mellitus with stage 3a chronic kidney disease, with long-term current use of insulin ([facility]) check FSBS 3 times a day or [...] 4 07/01/19 24 Active Blood Pressure Monitor [facility] KitIndications:B lood pressure instability,Orth ostatic hypotension,Esse ntial hypertension Check and record blood pressure daily and also prn with any feelings of lightheadedness and syncope 1 Kit 07/11/19 24 Active Blood-Glucose Sensor (DEXCOM G7 SENSOR) [facility] DeviceIndication s:Dyslipidemia associated with type 2 diabetes mellitus (HCC) 1 Each by [facility].(Non-Drug; Combo Route) route every 10 days. 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 Referral Given for [facility]. 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 Checking level Hyperuricemia 09/25/2021 History of CVA (cerebrovascular accident) 2020 Assessment & Plan (09/27/2021 8:01 PM EDT): Sees neurology. No residual deficits Coronary artery disease invo lving galena coronary artery of galena heart without angina pectoris 04/03/2021 Type 2 [...] 02/13/2016 N/A Surgeon: Jailyn Vieira MD; [facility]; Service: Endoscopy COLONOSCOPY CARDIAC SURGERY triple [...] at [facility] Hepatitis B Motion sickness Pneumonia NE (myocardial infarction) (HCC) Blood circulation, collateral Heartburn Stroke (HCC) 2019, 2019, 2020 , 2021 Post-operative nausea and vomiting extreme N/V Coronary artery disease invo lving galena coronary artery of galena heart without angina pectoris 04/03/2021 Hyperglycemia due [...] Date Recorded PHQ-2 Total Score 6 05/01/2023 [facility] [place] of Occupat ional Health - Occupational Stress [...] Wellness Exam 09/27/2022 09/27/2021 COVID-19 Vaccine ( - season) 2024 Kidney Health: eGFR 05/03/2024 05/03/2023, 05/02/2023, 05/01/2023, Additional history exists Hemoglobin A1c 05/21/2024 11/19/2023, 04/06, 08/23/2022, Additional history exists Kidney Health: uACR 11/18/2024 11/19/2023, 08/23/2022, 04/03/2021 Lipids 11/18/2024 11/19/2023, 08/05, 09/21/2021, Additional history exists Influenza Vaccine (#1) 2025 Colon Cancer Screening 02/13/2026 Colonoscopy 02/13/2026 [...] - 145 mmol/L 05/03/2023 8:14 AM EST [facility] Potassium 3.5 3.5 - 5.0 mmol/L 05/03/2023 8:14 AM EST [facility] Chloride 104 98 - 107 mmol/L 05/03/2023 8:14 AM EST [facility] Total CO2 23 22 - 29 mmol/L 05/03/2023 8:14 AM EST [facility] Anion Gap 11 7 - 16 mmol/L 05/03/2023 8:14 AM EST [facility] Calcium 8.0(L) 8.6 - 10.4 mg/dL 05/03/2023 8:14 AM EST [facility] Glucose Lvl 230(H) 74 - 100 mg/dL 05/03/2023 8:14 AM EST [facility] BUN 11 6 - 20 mg/dL 05/03/2023 8:14 AM EST [facility] Creatinine 1.25 0.51 - 1.30 mg/dL 05/03/2023 8:14 AM EST [facility] eGFR (CKD-EPIcr 2020) 51(L) >=60 mL/min/1.7 3 m2 05/03/2023 8:14 AM EST [facility] Comment:Estimated GFR was ca lculated using the CKD-EPIcr (2020) equation refit without race. The equation is recommended by the National Kidney Foundation - [place] [employer] of Nephrology Task Force. Blood VENOUS BLOOD / Unknown Venipuncture / Unknown 05/03/2023 7:30 AM EST 05/03/2023 7:48 AM EST us Jose Zacarias MD CHEMISTRY ORDERABLES Final Resul t [facility] [address] [place] [address] * [facility] COLONOSCOPY (02/14/2016 10:30 AM EDT) 02/14/2016 10:3 0 AM EDT Impressions [facility] - 02/14/2016 10:53 AM EDT Otherwise [...] PROCEDURE ORDERABLES Final Result Performing Organization Address City/[facility] Co de Phone Number [facility] [address] [place] [address] from Last 3 Months or Most Recently Relevant to Health Maintenance Insurance [facility] [employer] [facility] [address] [employer] [facility] [address] [employer] [facility] [place] [address] Advance Directives For more information, please contact: [phone] * Full Code (Latest Code Status on [...] 4:05 PM 04/14/2021 5:[address] Relationship Specialty Start Date End Date Abhijeet Joel APRN [address] [phone] PCP - General Nurse Practitioner-Family 09/27/21 Mario Walls MD [address] [phone] Internal Medicine-Cardiovascular Disease 06/18/23
--- NOTE | 2024-11-04 17:58 | PC.NURSE ---
Pt is A&Ox4. Vital signs stable tolerating room air. IV fluids infused per MAR. Monitoring kidney function. Pt uses dexcom and insulin pump for glucose monitoring. See prior note for glucose and insulin administration per pt report. Pt complains of pain she describes as pressure and watering from her eye. HYDROELECTRIC MACHINERY MECHANIC notified. Steroid eye drops and benadryl ordered. Eye drops administered but pt refused benadryl at this time stating it makes her sleepy. Pt resting comfortably in bed with no further needs voiced at this time. call light within reach
[2024-11-04 20:00] VITALS: BP 136/74; PULSE 67; PULSE 70; RESP 16; TEMP 36.6; O2SAT 96
[2024-11-04] MEDS: ATORVASTATIN 40MG TABLET 40 MG PO (20:37)
[2024-11-04 22:20] LABS: Blood Urea Nitrogen 67 mg/dl (7-17); Carbon Dioxide 21 mmol/L (22.0-30.0); Creatinine Clearance Estimated 15 mL/min (50-200); Estimated Glomerular Filt Rate 10 ml/min (>60); GFR (African American) 12 ML/MIN (>60); Potassium 3.9 mmoL/L (3.5-5.1)
[2024-11-04 22:32] LABS: Anion Gap 17.9 mEq/L (5-15); Calcium 7.8 mg/dl (8.4-10.2); Chloride 92 mmol/L (98-107); Glucose 239 mg/dl (74-100); Sodium 127 mmol/L (136-145)
[2024-11-04 22:40] LABS: Creatinine,Serum 4.70 mg/dl (0.52-1.04)
--- NOTE | 2024-11-04 22:41 | PC.NURSE ---
reported critical creatinine 4.[address] bush at this time
[2024-11-05] VITALS (7 sets, daily range): BP systolic 102–140; BP diastolic 63–76; PULSE 60–74; RESP 16–22; TEMP 36.7–36.9; O2SAT 91–94; BMI 30.7
--- NOTE | 2024-11-05 00:28 | PC.NURSE ---
patient has done well. noted bruising in groin with some tenderness. complaints of feeling like she needs to urinate and being unable. worried about UTI. notified md and orders obtained for UA. patient noted only going small amounts at a time. has been resting since order obtained so no urine at this time. did wheel over to ob to visit daughter with assistance. educated as needed. encouraged to ring out. independent in room.
[2024-11-05] MEDS: prednisoLONE 1% OPTH SOL 5ML OP ×3 (00:33→16:13)
--- NOTE | 2024-11-05 00:49 | PC.NURSE ---
noted some swelling around eye, patient feels its a little more swollen than it was. given eye drops per mar. patient still concerned about not urinating. educated on kidney and kidney function, and bladder scan done showing 60ml in bladder. patient given diet pop at this time. noted dexcom reading 290s but trending down
[2024-11-05] MEDS: ACETAMINOPHEN 325MG TAB 650 MG PO (01:44)
[2024-11-05] MEDS: ONDANSETRON 4MG/2ML VIAL 4 MG IV (01:45)
[2024-11-05 01:46] LABS: Microscopic, Urine URINE MICROSCOPIC (MICROSCOPIC)
[2024-11-05 01:47] LABS: Bilirubin,Urine Negative (Negative); Color,Urine YELLOW (Yellow); Glucose,Urine (UA) 2+ (Negative); Ketones,Urine Negative (Negative); Leukocyte Esterase,Urine 2+ (Negative); PH,Urine 6.0 (5.0-8.5); Protein,Urine 2+ (Negative); Specific Gravity, Urine 1.020 (1.005-1.030); Urobilinogen,Urine 0.2 EU/dl (0.2)
[2024-11-05 02:15] LABS: Bacteria,Urine 1+ /lpf
[2024-11-05] MEDS: BUTALB/ACETAMINOPHEN/CAFFEINE 50MG/325MG/40MG TAB 1 EACH PO (06:09)
[2024-11-05 06:35] LABS: Hematocrit 31.7 % (37.0-47.0); Hemoglobin 10.9 g/dL (12.2-16.2); Immature Granulocytes % 0.3 %; Mean Corpuscular HGB Conc 34.4 g/dL (31.8-35.4); Mean Corpuscular Hemoglobin 28.8 pg (27.0-31.2); Mean Corpuscular Volume 83.9 fl (81-99); Nucleated Red Blood Cells % 0 %; Platelet Count 200 K/mm3 (142-424); Red Blood Count 3.78 M/mm3 (4.20-5.40); Red Cell Distribution Width-SD 43.4 fL; White Blood Count 7.6 K/mm3 (4.8-10.8)
[2024-11-05 06:54] LABS: Alanine Aminotransferase 14 U/L (12-78); Albumin Level 3.2 g/dl (3.5-5.0); Albumin/Globulin Ratio 1.3 (1.1-1.8); Alkaline Phosphatase 55 U/L (38-126); Anion Gap 15.6 mEq/L (5-15); Aspartate Amino Transferase 21 U/L (14-36); Bilirubin,Total 0.3 mg/dl (0.2-1.3); Blood Urea Nitrogen 68 mg/dl (7-17); Calcium 8.0 mg/dl (8.4-10.2); Carbon Dioxide 22 mmol/L (22.0-30.0); Chloride 93 mmol/L (98-107); Creatinine Clearance Estimated 15 mL/min (50-200); Estimated Glomerular Filt Rate 9 ml/min (>60); GFR (African American) 11 ML/MIN (>60); Globulin 2.5 g/dL (1.3-3.2); Glucose 131 mg/dl (74-100); Potassium 4.6 mmoL/L (3.5-5.1); Total Protein,Serum 5.7 g/dl (6.3-8.2)
--- NOTE | 2024-11-05 06:54 | PC.NURSE ---
Patient beside table is clean,trash and lines are taking out room.
[2024-11-05 07:42] LABS: Creatinine,Serum 5.10 mg/dl (0.52-1.04)
[2024-11-05 07:47] LABS: Sodium 126 mmol/L (136-145)
--- NOTE | 2024-11-05 08:29 | US_ITS ---
PROCEDURE INFORMATION: Exam: US Retroperitoneal, Kidney(s) Exam date and time: 11/05/2024 9:14 AM Age: 54 years old Clinical indication: Abdominal pain; Other: Lane - stones; Additional info: Lane, decreased urine output TECHNIQUE: Imaging protocol: Real-time ultrasound of the retroperitoneum with image documentation. Examination was focused on the kidneys. COMPARISON: CT ANGIO ABDOMEN PELVIS 11/02/2024 6:21 PM FINDINGS: Right kidney: Right kidney measures 9.5 x 6.2 x 4.9 cm for a volume of 150.9 mL. Lobulated renal contour with areas of parenchymal scarring unchanged compared to recent CT. No hydronephrosis. Few punctate echogenic foci. Left kidney: Left kidney measures 11.2 x 4.5 x 6.1 cm for a volume of 162 mL. Lobulated renal contour with areas of parenchymal scarring unchanged compared to recent CT. No hydronephrosis. Few punctate echogenic foci. IMPRESSION: 1. No acute findings. No hydronephrosis. 2. Lobulated renal contours with areas of parenchymal scarring. 3. Few punctate echogenic foci noted within each kidney which may represent vascular reflections/calcification or small nonobstructive renal calculi.
--- NOTE | 2024-11-05 08:30 | XR_ITS ---
PROCEDURE INFORMATION: Exam: XR Abdomen Exam date and time: 11/05/2024 9:08 AM Age: 54 years old Clinical indication: Abdominal pain; Additional info: Kidney stone TECHNIQUE: Imaging protocol: Radiologic exam of the abdomen. Views: Frontal supine view of the abdomen. 1 View. COMPARISON: CT ANGIO ABDOMEN PELVIS 11/02/2024 6:21 PM FINDINGS: Tubes, catheters and devices: Overlying lead on the right. Gastrointestinal tract: Nonobstructive bowel gas pattern. Organs: Faint residual contrast within the kidneys and urinary bladder. No definite renal or urinary tract calculi. Stable pelvic phleboliths and vascular calcification. Bones/joints: Bones are stable. Degenerative changes. IMPRESSION: Faint residual contrast within the kidneys and urinary bladder. Correlate with renal function. No definite renal or urinary tract calculi.
--- NOTE | 2024-11-05 09:58 | P.PN_ITS ---
Subjective Subjective Date: 11/05/24 Time: 08:00 Principal diagnosis: Chest pain and hypertension. Interval history: Patient reports she is feeling poorly today. She reports edema to face and legs and shortness of breath. Oxygen saturations 91% on 1 L nasal cannula. Edema is noted. Creatinine has elevated to 5.1. Exam Data for Last 24 hours Vital signs and Labs for Last 24 Hours: Temp Pulse Resp BP Pulse Ox O2 Del Method O2 Flow Rate 98.1 F 69 16 102/63 L 91 L Room Air 1 11/05/24 08:00 11/05/24 08:00 11/05/24 08:00 11/05/24 08:00 11/05/24 08:00 11/05/24 09:54 11/03/24 12:30 Laboratory Results - last 24 hr 11/04/24 14:10: Sodium 132 L, Potassium 3.9, Chloride 94 L, Carbon Dioxide 24, Anion Gap 17.9 H, BUN 58 H, Creatinine 4.20 H, Estimated Creat Clear 17, Estimated GFR 11 L*, Est GFR ( Amer) 13 L*, Glucose 188 H, Calcium 8.1 L 11/04/24 22:05: Sodium 127 L, Potassium 3.9, Chloride 92 L, Carbon Dioxide 21 L, Anion Gap 17.9 H, BUN 67 H, Creatinine 4.70 H, Estimated Creat Clear 15, Estimated GFR 10 L*, Est GFR ( Amer) 12 L*, Glucose 239 H D, Calcium 7.8 L 11/05/24 01:36: Urine Color Yellow, Urine Appearance Clear, Urine pH 6.0, Ur Specific [place] 1.020, Urine Protein 2+ A, Urine Glucose (UA) 2+, Urine Ketones Negative, Urine Blood Trace-i, Urine Nitrate Negative, Urine Bilirubin Negative, Urine Urobilinogen 0.2, Ur Leukocyte Esterase 2+ A, Urine RBC 5-10, Urine WBC 10-20, Ur Squamous Epith Cells 10-20, Urine Bacteria 1+ 11/05/24 05:29: WBC 7.6, RBC 3.78 L, Hgb 10.9 L, Hct 31.7 L, MCV 83.9, MCH 28.8, MCHC 34.4, RDW 14.1, Plt Count 200, MPV 10.4, Neut % (Auto) 72.1, Lymph % (Auto) 18.6, [place] % (Auto) 7.0, Eos % (Auto) 1.6, Baso % (Auto) 0.4, Neut # (Auto) 5.5, Lymph # (Auto) 1.4, [place] # (Auto) 0.5, Eos # (Auto) 0.1, Baso # (Auto) 0.0, Sodium 126 L, Potassium 4.6, Chloride 93 L, Carbon Dioxide 22, Anion Gap 15.6 H, BUN 68 H, Creatinine 5.10 H, Estimated Creat Clear 15, Estimated GFR 9 L*, Est GFR ( Amer) 11 L*, Glucose 131 H D, Calcium 8.0 L, Total Bilirubin 0.3, AST 21, ALT 14, Alkaline Phosphatase 55, Total Protein 5.7 L, Albumin 3.2 L, Globulin 2.5, Albumin/Globulin Ratio 1.3 I & O for Last 24 hours: Intake & Output 11/02/24 11/03/24 11/04/24 11/05/24 23:59 23:59 23:59 23:59 Intake Total 4.891 / 4.891 1432.569 / 2940.208 0816 / 1160 Output Total 1000 / 1000 100 / 100 250 / 250 Balance -995.109 / -879.329 9711.569 / 1572.569 910 / 910 Weight 152 lb 14.4 oz 159 lb 2 oz 173 lb 8 oz Microbiology Reports for the Last 24 Hours: Microbiology 11/02/24 20:41 Rectum CRE Surveillance Culture - Final Negative Constitutional Constitutional: no acute distress Comments: Edema noted to eyelids *Routine Respiratory Exam Respiratory: Present rhonchi and symmetric chest movement *Routine Cardiovascular Exam Cardiovascular: Present RRR, Normal S1 and Normal S2 *Routine Abdominal Exam Abdominal: Present soft and normoactive bowel sounds; Absent tenderness *Routine Extremities Exam Extremities: Present full ROM and normal capillary refill; Absent edema *Routine Skin Exam Skin: Present intact, dry and warm Detailed Neck Exam: Thyroids Thyroid: Absent bruit Progress Note: A&P Assessment and plan (1) Status post left heart catheterization: Status: Acute (2) Hypertensive emergency: Status: Acute (3) Hx of CABG: Status: Acute (4) CKD (chronic kidney disease): Status: Acute (5) Elevated LDL cholesterol level: Status: Acute (6) Migraine: Status: Acute Assessment and Plan Assessment and Plan for All Diagnoses:: History of coronary artery disease History of CABG x 3 in 2019 Normal biventricular systolic function with mild AI and TR 7 to Left heart catheterization 11/03/2024 medical management please see full cath report. Continue Plavix and statin Hypertensive emergency-resolved Blood pressure 138/73. Mild left renal artery stenosis noted on cath from 11/03 Continue nifedipine 30 mg p.o. daily and bisoprolol 5 mg p.o. daily Chronic kidney disease Concern for postcontrast nephropathy and ATN Creatinine increased to 5.10 today, baseline 1.7-1.9 Decreased urine output noted Patient was given Lasix 80 mg x 1 per primary service Strict I's and O's Hyperlipidemia LDL goal less than 55, LDL is 76 Increase atorvastatin to 20 mg p.o. daily Diabetes mellitus A1c is 8.3. Will defer management to PCP. Continue Jardiance 10 mg p.o. daily CV summary 11/05/2024: Creatinine continues to elevate today-5.1 with decreased urine output. Edema present. Lasix 80 mg IV x 1 given per primary service. Will continue to monitor urine output and kidney function. If not responsive to Lasix then should consider transfer. Cardiac meds: Plavix 75 mg p.o. daily Atorvastatin 20 mg p.o. daily Bisoprolol 5 mg p.o. daily Jardiance 10 mg p.o. daily Nifedipine 30 mg p.o. daily Lasix 80 mg IV x 1
[2024-11-05] MEDS: SERTRALINE 50MG TABLET 50 MG PO (10:10)
[2024-11-05] MEDS: CLOPIDOGREL 75MG TAB 75 MG PO (10:10)
[2024-11-05] MEDS: EMPAGLIFLOZIN 10MG TABLET 10 MG PO (10:10)
[2024-11-05] MEDS: HEPARIN SODIUM 5,000 UNIT/ML VIAL 5000 UNIT SUBCUT ×2 (10:10→21:30)
[2024-11-05 10:49] LABS: Microscopic, Urine URINE MICROSCOPIC (MICROSCOPIC)
[2024-11-05] MEDS: FUROSEMIDE 100MG/10ML VIAL 80 MG IV (10:49)
[2024-11-05 10:52] LABS: Color,Urine YELLOW (Yellow); Glucose,Urine (UA) 1+ (Negative); Ketones,Urine Negative (Negative); Leukocyte Esterase,Urine 2+ (Negative); PH,Urine 5.5 (5.0-8.5); Protein,Urine 2+ (Negative); Specific Gravity, Urine 1.020 (1.005-1.030); Urobilinogen,Urine 0.2 EU/dl (0.2)
[2024-11-05 10:56] LABS: Bilirubin,Urine Negative (Negative)
[2024-11-05 11:05] LABS: WBC,Urine 50-100 #/hpf (0-3)
[2024-11-05 11:06] LABS: Amorphous Sediment,Urine Trace /lpf
--- NOTE | 2024-11-05 15:34 | PC.NURSE ---
Aox4, up ad ly, on RA, fsbg achs, both eyes are swollen and patient is getting steroid drops, cardiac diet, f/c in place to monitor UOP, strict I&O's, 20g R AC SL, Right groin dressing c/d/i.
--- NOTE | 2024-11-05 15:38 | P.PN_ITS ---
<Statement entered by Navin Freire MD - 11/05/24 17:02> Rounded on patient after nurse practitioner. Personally examined and interviewed patient. Agree with exam findings and care plan as documented. Subjective *Date: 11/05/24 *Time: 17:00 Interval history: Patient lying in bed, does complain of a headache. She also complains of bilateral periorbital swelling. Likely edema related to JOSELUIS. Discussed worsening kidney function, plans for Lasix and urinary catheter for strict intake and output. Medical Exam Vital signs and Labs for Last 24 Hours: Vital Signs Temp Pulse Pulse Resp BP Pulse Ox O2 Del Method 11/05/24 14:46 Room Air 11/05/24 12:52 Room Air 11/05/24 12:00 98.3 F 68 16 126/69 93 L Room Air 11/05/24 09:54 Room Air 11/05/24 08:00 Room Air 11/05/24 08:00 98.1 F 69 16 102/63 L 91 L Room Air 11/05/24 06:45 Room Air 11/05/24 05:00 Room Air 11/05/24 04:00 60 11/05/24 04:00 98.3 F 63 18 117/70 94 L Room Air 11/05/24 03:00 Room Air 11/05/24 00:51 Room Air 11/05/24 00:00 70 11/05/24 00:00 98.4 F 74 16 118/69 91 L Room Air 11/04/24 23:00 Room Air 11/04/24 21:00 Room Air 11/04/24 20:00 70 11/04/24 20:00 97.8 F 67 16 136/74 96 Room Air 11/04/24 18:45 Room Air 11/04/24 17:00 Room Air 11/04/24 16:00 60 11/04/24 16:00 97.5 F L 63 16 125/70 96 Room Air Intake and Output 11/04/24 11/05/24 11/05/24 23:59 07:59 15:59 Intake Total 360 / 1160 720 / 720 Output Total 75 / 250 200 / 200 Balance 285 / 910 520 / 520 Intake: Intake, Oral Amount 360 / 1160 720 / 720 Output: Output, Urine Amount 75 / 250 200 / 200 Other: Number of Bowel Movements 1 Weight 78.698 kg Patient Weight 11/05/24 23:59 Weight 78.698 kg Laboratory Results - last 24 hr 11/04/24 22:05: Sodium 127 L, Potassium 3.9, Chloride 92 L, Carbon Dioxide 21 L, Anion Gap 17.9 H, BUN 67 H, Creatinine 4.70 H, Estimated Creat Clear 15, Estimated GFR 10 L*, Est GFR ( Amer) 12 L*, Glucose 239 H D, Calcium 7.8 L 11/05/24 01:36: Urine Color Yellow, Urine Appearance Clear, Urine pH 6.0, Ur Specific [place] 1.020, Urine Protein 2+ A, Urine Glucose (UA) 2+, Urine Ketones Negative, Urine Blood Trace-i, Urine Nitrate Negative, Urine Bilirubin Negative, Urine Urobilinogen 0.2, Ur Leukocyte Esterase 2+ A, Urine RBC 5-10, Urine WBC 10-20, Ur Squamous Epith Cells 10-20, Urine Bacteria 1+ 11/05/24 05:29: WBC 7.6, RBC 3.78 L, Hgb 10.9 L, Hct 31.7 L, MCV 83.9, MCH 28.8, MCHC 34.4, RDW 14.1, Plt Count 200, MPV 10.4, Neut % (Auto) 72.1, Lymph % (Auto) 18.6, [place] % (Auto) 7.0, Eos % (Auto) 1.6, Baso % (Auto) 0.4, Neut # (Auto) 5.5, Lymph # (Auto) 1.4, [place] # (Auto) 0.5, Eos # (Auto) 0.1, Baso # (Auto) 0.0, Sodium 126 L, Potassium 4.6, Chloride 93 L, Carbon Dioxide 22, Anion Gap 15.6 H, BUN 68 H, Creatinine 5.10 H, Estimated Creat Clear 15, Estimated GFR 9 L*, Est GFR ( Amer) 11 L*, Glucose 131 H D, Calcium 8.0 L, Total Bilirubin 0.3, AST 21, ALT 14, Alkaline Phosphatase 55, Total Protein 5.7 L, Albumin 3.2 L, Globulin 2.5, Albumin/Globulin Ratio 1.3 11/05/24 10:40: Urine Color Yellow, Urine Appearance Clear, Urine pH 5.5, Ur Specific [place] 1.020, Urine Protein 2+ A, Urine Glucose (UA) 1+, Urine Ketones Negative, Urine Blood 1+ A, Urine Nitrate Negative, Urine Bilirubin Negative, Urine Urobilinogen 0.2, Ur Leukocyte Esterase 2+ A, Urine RBC 5-10, Urine WBC 50-100, Ur Squamous Epith Cells 3-5, Amorphous Sediment Trace I & O for Labs for Last 24 Hours: Intake & Output 11/02/24 11/03/24 11/04/24 11/05/24 23:59 23:59 23:59 23:59 Intake Total 4.891 / 4.891 1432.569 / 3035.473 7440 / 1160 720 / 720 Output Total 1000 / 1000 100 / 100 250 / 250 200 / 200 Balance -995.109 / -506.244 7791.569 / 1572.569 910 / 910 520 / 520 Weight 69.354 kg 72.178 kg 78.698 kg Assessment and Plan *Assessment and plan (1) Status post left heart catheterization: Status: Acute Category: Medical Code(s): Z98.890 - Other specified postprocedural states (2) Hypertensive emergency: Status: Acute Category: Medical Code(s): I16.1 - Hypertensive emergency (3) Hx of CABG: Status: Acute Category: Surgical Code(s): Z95.1 - Presence of aortocoronary bypass graft (4) CKD (chronic kidney disease): Status: Acute Category: Medical Code(s): N18.9 - Chronic kidney disease, unspecified (5) Elevated LDL cholesterol level: Status: Acute Category: Medical Code(s): E78.00 - Pure hypercholesterolemia, unspecified (6) Migraine: Status: Acute Category: Medical Code(s): G43.909 - Migraine, unspecified, not intractable, without status migrainosus (7) JOSELUIS (acute kidney injury): Status: Acute Category: Medical Code(s): N17.9 - Acute kidney failure, unspecified Plan Ms. Head is a 54-year-old female who presented yesterday to the emergency department With chest pain that radiated to her left jaw and left shoulder and shortness of breath. Blood pressure was found to be 246/129, heart rate 93, EKG normal sinus rhythm. She also had a elevated creatinine of 1.5. She does state that she has a history of CKD. BNP was elevated at 3100. Patient did state that normally she has low blood pressure 90s over 60s. She also states that she occasionally has to take salt tablets to regulate her hypotension. Given the complexity of her blood pressure and labs patient was admitted for further evaluation by cardiology. Patient was taken to the [facility] for a left heart cath, she received no intervention. #Hypertensive emergency #Chronic kidney disease #JOSELUIS ?Patient feels poorly today, oxygen saturation 92% with 1 L oxygen nasal cannula. Edema noted periorbitally. ?Renal ultrasound obtained, no acute findings, no hydronephrosis noted. ?Creatinine on admission was 1.5, trending upward to 5.10 today. Patient was initially given 1 L of fluid IV over 6 hours yesterday, patient has had little urine output. ?Lasix 80 mg IV given x 1 and Bay catheter placed for strict I's and O's. Responded with 200 cc of output over the next 2 to 4 hours. Given timeframe of elevation in creatinine, findings most consistent with contrast-induced JOSELUIS. Will monitor closely. At this time her potassium is stable at 4.3, BUN is not a toxic level. Anticipate improvement in kidney function over the next 2 to 5 days. If begins to see a trend down, will be stable discharge home. If becomes an uric and continuing to trend up, may necessitate transfer for higher level of care. -Will monitor labs closely with CBC, CMP, phosphorus, magnesium ordered for the morning. BMP ordered for the afternoon. ?Patient has history of a CABG, currently on Plavix 75 mg daily. Has aspirin allergy. ?Patient was started on a nitroprusside drip, that was weaned. Patient has been normotensive since that time, without episodes of hypertension. ?Cardiology Recommends holding blood pressure medication at this time with close outpatient follow-up. ?Echo shows EF of 55%. ? Patient complains of moderate surgical site pain, [place] 5/325 mg every 6 hours as needed. Monitor for toxicity. #Hyperlipidemia ? LDL goal less than 55, LDL currently 76. Rosuvastatin 10 mg daily. ?Patient states that PCP ordered Neil injection for hyperlipidemia, waiting for insurance approval. #Diabetes, type I ?Patient recently prescribed a insulin pump, patient's PCP saw her yesterday and plans to work on better education for pump use. Patient was previously using insulin pen. ?Patient also takes Jardiance 10 mg daily ?Dietitian consult for carbohydrate counting information. #Migraine headache ?Will start Fioricet every 6 hours as needed, patient states helping headache. Full code Cardiac diet Ambulate as tolerated Heparin 5000 units SQ 3 times daily for VTE
[2024-11-05 16:22] LABS: Anion Gap 14.3 mEq/L (5-15); Blood Urea Nitrogen 73 mg/dl (7-17); Calcium 7.8 mg/dl (8.4-10.2); Carbon Dioxide 21 mmol/L (22.0-30.0); Chloride 92 mmol/L (98-107); Creatinine Clearance Estimated 15 mL/min (50-200); Estimated Glomerular Filt Rate 9 ml/min (>60); GFR (African American) 10 ML/MIN (>60); Glucose 154 mg/dl (74-100); Potassium 4.3 mmoL/L (3.5-5.1); Sodium 123 mmol/L (136-145)
[2024-11-05 16:43] LABS: Creatinine,Serum 5.20 mg/dl (0.52-1.04)
[2024-11-05] MEDS: TAMSULOSIN 0.4MG CAPSULE 0.4 MG PO (21:00)
[2024-11-06] VITALS (8 sets, daily range): BP systolic 105–158; BP diastolic 63–81; PULSE 70–90; RESP 16–18; TEMP 36.8–37.1; O2SAT 90–96; BMI 30.6
--- NOTE | 2024-11-06 03:07 | PC.NURSE ---
Addendum entered by BARRY Gill 11/06/24 03:08: Linens were also emptied at this time Original Note: Pt stated bed was wet from Catheter to RN Janay, myself and BARRY Perdomo Bed was wet and all linens were changed at this time.
--- NOTE | 2024-11-06 04:22 | PC.NURSE ---
v/s, ox4. Pt refused her insulin and some night time meds. Charge nurse made aware. No acute events to report. Plan of care ongoing.
[2024-11-06 06:54] LABS: Hematocrit 31.9 % (37.0-47.0); Hemoglobin 11.3 g/dL (12.2-16.2); Immature Granulocytes % 0.4 %; Mean Corpuscular HGB Conc 35.4 g/dL (31.8-35.4); Mean Corpuscular Hemoglobin 29.4 pg (27.0-31.2); Mean Corpuscular Volume 83.1 fl (81-99); Nucleated Red Blood Cells % 0 %; Platelet Count 195 K/mm3 (142-424); Red Blood Count 3.84 M/mm3 (4.20-5.40); Red Cell Distribution Width-SD 42.8 fL; White Blood Count 7.1 K/mm3 (4.8-10.8)
[2024-11-06 07:17] LABS: Alanine Aminotransferase 16 U/L (12-78); Albumin Level 3.3 g/dl (3.5-5.0); Albumin/Globulin Ratio 1.3 (1.1-1.8); Alkaline Phosphatase 58 U/L (38-126); Anion Gap 15.9 mEq/L (5-15); Aspartate Amino Transferase 25 U/L (14-36); Bilirubin,Total 0.4 mg/dl (0.2-1.3); Blood Urea Nitrogen 71 mg/dl (7-17); Calcium 8.1 mg/dl (8.4-10.2); Carbon Dioxide 20 mmol/L (22.0-30.0); Chloride 96 mmol/L (98-107); Creatinine Clearance Estimated 16 mL/min (50-200); Estimated Glomerular Filt Rate 9 ml/min (>60); GFR (African American) 11 ML/MIN (>60); Globulin 2.6 g/dL (1.3-3.2); Glucose 134 mg/dl (74-100); Magnesium 2.0 mg/dl (1.6-2.3); Phosphorous 8.5 mg/dl (2.5-4.5); Potassium 3.9 mmoL/L (3.5-5.1); Sodium 128 mmol/L (136-145); Total Protein,Serum 5.9 g/dl (6.3-8.2)
[2024-11-06 07:27] LABS: Creatinine,Serum 4.80 mg/dl (0.52-1.04)
[2024-11-06] MEDS: CLOPIDOGREL 75MG TAB 75 MG PO (09:17)
[2024-11-06] MEDS: prednisoLONE 1% OPTH SOL 5ML OP ×2 (09:18)
[2024-11-06] MEDS: EMPAGLIFLOZIN 10MG TABLET 10 MG PO (09:18)
[2024-11-06] MEDS: SERTRALINE 50MG TABLET 50 MG PO (09:18)
[2024-11-06] MEDS: HEPARIN SODIUM 5,000 UNIT/ML VIAL 5000 UNIT SUBCUT ×2 (09:19→20:49)
--- NOTE | 2024-11-06 10:29 | P.PN_ITS ---
<Statement entered by Navin Freire MD - 11/06/24 13:10> Rounded on patient after nurse practitioner. Personally examined and interviewed patient. Agree with exam findings and care plan as documented. Subjective *Date: 11/06/24 *Time: 13:09 Interval history: Patient lying in bed, states she feels much better today. Urine output overnight totaled 3050 mL. Periorbital orbital edema has decreased. Creatinine 4.8, down from 5.2. Medical Exam Vital signs and Labs for Last 24 Hours: Vital Signs Temp Pulse Pulse Resp BP Pulse Ox O2 Del Method 11/06/24 10:22 Room Air 11/06/24 09:00 Room Air 11/06/24 08:00 Room Air 11/06/24 08:00 70 11/06/24 08:00 98.6 F 74 18 105/65 L 92 L Room Air 11/06/24 06:42 Room Air 11/06/24 04:21 Room Air 11/06/24 04:00 70 11/06/24 04:00 98.2 F 76 16 123/63 90 L Room Air 11/06/24 03:00 Room Air 11/06/24 01:00 Room Air 11/06/24 00:00 70 11/06/24 00:00 98.8 F 72 16 135/74 91 L Room Air 11/05/24 23:00 Room Air 11/05/24 21:00 Room Air 11/05/24 20:00 Room Air 11/05/24 20:00 70 11/05/24 20:00 98.2 F 71 22 140/76 93 L Room Air 11/05/24 18:12 Room Air 11/05/24 16:07 Room Air 11/05/24 16:00 98.1 F 70 16 135/69 94 L Room Air 11/05/24 16:00 70 11/05/24 14:46 Room Air 11/05/24 12:52 Room Air 11/05/24 12:00 60 11/05/24 12:00 98.3 F 68 16 126/69 93 L Room Air Intake and Output 11/05/24 11/06/24 11/06/24 23:59 07:59 15:59 Intake Total 50 / 1010 1100 / 1265 165 / 1265 Output Total 2350 / 3050 700 / 3050 Balance 50 / 760 -1250 / -1785 -535 / -1785 Intake: Intake, Oral Amount 1100 / 1265 165 / 1265 Intake, Total IV Amount 50 / 50 Ceftriaxone Sodium 1 gm In 0.9 50 / 50 % Sodium Chloride 50 ml @ 100 mls/hr IV Q24H [facility] Rx#:[id number] Output: Output, Urine Amount 2350 / 3050 700 / 3050 Other: Number of Unmeasured Voids 1 0 Weight 78.381 kg Patient Weight 11/06/24 23:59 Weight 78.381 kg Laboratory Results - last 24 hr 11/05/24 10:40: Urine Color Yellow, Urine Appearance Clear, Urine pH 5.5, Ur Specific [place] 1.020, Urine Protein 2+ A, Urine Glucose (UA) 1+, Urine Ketones Negative, Urine Blood 1+ A, Urine Nitrate Negative, Urine Bilirubin Negative, Urine Urobilinogen 0.2, Ur Leukocyte Esterase 2+ A, Urine RBC 5-10, Urine WBC 50-100, Ur Squamous Epith Cells 3-5, Amorphous Sediment Trace 11/05/24 16:00: Sodium 123 L, Potassium 4.3, Chloride 92 L, Carbon Dioxide 21 L, Anion Gap 14.3, BUN 73 H, Creatinine 5.20 H, Estimated Creat Clear 15, Estimated GFR 9 L*, Est GFR ( Amer) 10 L*, Glucose 154 H, Calcium 7.8 L 11/06/24 06:30: WBC 7.1, RBC 3.84 L, Hgb 11.3 L, Hct 31.9 L, MCV 83.1, MCH 29.4, MCHC 35.4, RDW 14.2, Plt Count 195, MPV 10.6 H, Neut % (Auto) 81.0 H, Lymph % (Auto) 11.8, [place] % (Auto) 5.5, Eos % (Auto) 1.0, Baso % (Auto) 0.3, Neut # (Auto) 5.8, Lymph # (Auto) 0.8, [place] # (Auto) 0.4, Eos # (Auto) 0.1, Baso # (Auto) 0.0, Sodium 128 L, Potassium 3.9, Chloride 96 L, Carbon Dioxide 20 L, Anion Gap 15.9 H, BUN 71 H, Creatinine 4.80 H, Estimated Creat Clear 16, Estimated GFR 9 L*, Est GFR ( Amer) 11 L*, Glucose 134 H, Calcium 8.1 L, Phosphorus 8.5 H, Magnesium 2.0, Total Bilirubin 0.4, AST 25, ALT 16, Alkaline Phosphatase 58, Total Protein 5.9 L, Albumin 3.3 L, Globulin 2.6, Albumin/Globulin Ratio 1.3 I & O for Labs for Last 24 Hours: Intake & Output 11/03/24 11/04/24 11/05/24 11/06/24 23:59 23:59 23:59 23:59 Intake Total 1432.569 / 9334.714 6167 / 1160 770 / 1010 1265 / 1265 Output Total 100 / 100 250 / 250 250 / 250 3050 / 3050 Balance 1332.569 / 1572.569 910 / 910 520 / 760 -1785 / -1785 Weight 72.178 kg 78.698 kg 78.381 kg Constitutional: Present no acute distress and cooperative Head: Present atraumatic Eyes: Present as per HPI ENT: Present normal exam Comment:: Periorbital edema noted bilaterally Neck: Present normal inspection and full ROM Respiratory: Present CTA bilaterally, normal respiratory effort, able to speak in complete sentences and symmetric chest movement Cardiac: Present Reg Rate and Rhythm; Absent Audible Murmur GI: Present soft and normal bowel sounds; Absent distention or tenderness Rectal (female): Present deferred (female): Present deferred Extremities: Present normal inspection and normal capillary refill; Absent edema Skin: Present intact and warm Comment:: Right groin dressing, small hematoma Neuro: Present Grossly Intact, awake and oriented x 3 Assessment and Plan *Assessment and plan (1) Status post left heart catheterization: Status: Acute Category: Medical Code(s): Z98.890 - Other specified postprocedural states (2) Hypertensive emergency: Status: Acute Category: Medical Code(s): I16.1 - Hypertensive emergency (3) Hx of CABG: Status: Acute Category: Surgical Code(s): Z95.1 - Presence of aortocoronary bypass graft (4) CKD (chronic kidney disease): Status: Acute Category: Medical Code(s): N18.9 - Chronic kidney disease, unspecified (5) Elevated LDL cholesterol level: Status: Acute Category: Medical Code(s): E78.00 - Pure hypercholesterolemia, unspecified (6) Migraine: Status: Acute Category: Medical Code(s): G43.909 - Migraine, unspecified, not intractable, without status migrainosus (7) JOSELUIS (acute kidney injury): Status: Acute Category: Medical Code(s): N17.9 - Acute kidney failure, unspecified (8) Urinary tract infection: Status: Acute Category: Medical Code(s): N39.0 - Urinary tract infection, site not specified (9) Contrast-induced nephropathy: Status: Acute Category: Medical Code(s): N14.11 - Contrast-induced nephropathy; T50.8X5A - Adverse effect of diagnostic agents, initial encounter Plan Ms. Head is a 54-year-old female who presented yesterday to the emergency department With chest pain that radiated to her left jaw and left shoulder and shortness of breath. Blood pressure was found to be 246/129, heart rate 93, EKG normal sinus rhythm. She also had a elevated creatinine of 1.5. She does state that she has a history of CKD. BNP was elevated at 3100. Patient did state that normally she has low blood pressure 90s over 60s. She also states that she occasionally has to take salt tablets to regulate her hypotension. Given the complexity of her blood pressure and labs patient was admitted for further evalu ation by cardiology. Patient was taken to the [facility] for a left heart cath, she received no intervention. Plan of care continues as follows: #Hypertensive emergency #Chronic kidney disease #JOSELUIS ? O2 saturation has remained above 92% on room air. Patient states shortness of breath has resolved. ?Renal ultrasound obtained 11/05, no acute findings, no hydronephrosis noted. ?Creatinine on admission was 1.5, peaked at 5.2, repeat this morning has trended down to 4.8. ? Patient received 1 dose at 80 mg IV yesterday, with significant output of 3300 in the past 24 hours. Will give another dose Lasix 80 mg IV today. Will continue strict I's and O's and discontinue Bay catheter. Given timeframe of elevation in creatinine, findings are consistent with contrast-induced JOSELUIS. Will monitor closely. Potassium remains stable at 3.9, BUN is not a toxic level. Anticipate improvement in kidney function over the next 2 to 5 days. Expect kidney function to continue to trend downward, serial BMP every 8 hours ordered. - Continuing to monitor CBC, CMP, magnesium. ?Patient has history of a CABG, currently on Plavix 75 mg daily. Has aspirin allergy. ? Patient initially admitted for hypertensive crisis, no episodes of hypertension noted. ? Echo shows EF of 55%. ? [place] 5/325 mg every 6 hours as needed. Monitor for toxicity. #Hyperlipidemia ? LDL goal less than 55, LDL currently 76. Rosuvastatin 10 mg daily. ?Patient states that PCP ordered Niel injection for hyperlipidemia, waiting for insurance approval. #Diabetes, type I ?Patient recently prescribed a insulin pump, patient's PCP saw her yesterday and plans to work on better education for pump use. Patient was previously using insulin pen. ?Patient also takes Jardiance 10 mg daily ?Dietitian consult for carbohydrate counting information. #Migraine headache ?Will start Fioricet every 6 hours as needed. #UTI Bay catheter was placed yesterday for strict I's and O's, urinalysis showed 2+ protein, 1+ glucose, 1+ urine blood, 2+ leuk esterase, 50-100 urine WBC. Patient was started on Rocephin 1 g daily. Full code Cardiac diet Ambulate as tolerated Heparin 5000 units SQ 3 times daily for VTE
[2024-11-06] MEDS: FUROSEMIDE 100MG/10ML VIAL 80 MG IV (12:00)
[2024-11-06 14:17] LABS: Chloride 96 mmol/L (98-107); Potassium 3.7 mmoL/L (3.5-5.1); Sodium 131 mmol/L (136-145)
[2024-11-06 14:20] LABS: Anion Gap 17.7 mEq/L (5-15); Blood Urea Nitrogen 68 mg/dl (7-17); Calcium 8.1 mg/dl (8.4-10.2); Carbon Dioxide 21 mmol/L (22.0-30.0); Creatinine Clearance Estimated 17 mL/min (50-200); Estimated Glomerular Filt Rate 10 ml/min (>60); GFR (African American) 12 ML/MIN (>60); Glucose 274 mg/dl (74-100)
[2024-11-06 14:23] LABS: Creatinine,Serum 4.60 mg/dl (0.52-1.04)
[2024-11-06 16:07] LABS: POC Glucose,Bedside 350 (70-110)
--- NOTE | 2024-11-06 17:25 | PC.NURSE ---
Aox4, up ad ly, on RA, fsbg achs, both eyes are swollen and patient is getting steroid drops, cardiac diet, strict I&O's, 20g R AC SL, Right groin dressing c/d/i, pt covers own insulin with her insulin pump.
[2024-11-06 20:28] LABS: POC Glucose,Bedside 293 (70-110)
[2024-11-06] MEDS: TAMSULOSIN 0.4MG CAPSULE 0.4 MG PO (20:49)
[2024-11-06] MEDS: GABAPENTIN 600MG TABLET 600 MG PO (20:56)
[2024-11-06 22:05] LABS: Chloride 97 mmol/L (98-107); Potassium 3.7 mmoL/L (3.5-5.1); Sodium 136 mmol/L (136-145)
[2024-11-06 22:08] LABS: Anion Gap 16.7 mEq/L (5-15); Blood Urea Nitrogen 70 mg/dl (7-17); Calcium 8.5 mg/dl (8.4-10.2); Carbon Dioxide 26 mmol/L (22.0-30.0); Creatinine Clearance Estimated 18 mL/min (50-200); Estimated Glomerular Filt Rate 11 ml/min (>60); GFR (African American) 13 ML/MIN (>60); Glucose 256 mg/dl (74-100)
[2024-11-06 22:10] LABS: Creatinine,Serum 4.30 mg/dl (0.52-1.04)
[2024-11-07] VITALS: BP 135/72; PULSE 78; PULSE 80; RESP 17; TEMP 36.9; O2SAT 90
[2024-11-07] MEDS: ACETAMINOPHEN 325MG TAB 650 MG PO (02:48)
[2024-11-07] MEDS: ONDANSETRON 4MG/2ML VIAL 4 MG IV (02:48)
--- NOTE | 2024-11-07 03:01 | PC.NURSE ---
Pt AOx4. Due to dexcom falling off earlier yesterday, the pt is currently requiring fingersticks. Insulin pump is still functioning well. Pt resting in bed with eyes open. Respirations even and unlabored. Bed is low, locked, and call light is in reach.
[2024-11-07 04:00] VITALS: BP 126/67; PULSE 80; RESP 16; TEMP 36.8; O2SAT 100; BMI 28.7
[2024-11-07 05:52] LABS: POC Glucose,Bedside 190 (70-110)
--- NOTE | 2024-11-07 06:16 | PC.NURSE ---
Picked up trash, linens, and refilled water.
[2024-11-07 07:33] LABS: Hematocrit 34.7 % (37.0-47.0); Hemoglobin 11.5 g/dL (12.2-16.2); Immature Granulocytes % 0.3 %; Mean Corpuscular HGB Conc 33.1 g/dL (31.8-35.4); Mean Corpuscular Hemoglobin 28.3 pg (27.0-31.2); Mean Corpuscular Volume 85.3 fl (81-99); Nucleated Red Blood Cells % 0 %; Platelet Count 202 K/mm3 (142-424); Red Blood Count 4.07 M/mm3 (4.20-5.40); Red Cell Distribution Width-SD 44.5 fL; White Blood Count 5.8 K/mm3 (4.8-10.8)
[2024-11-07 08:00] VITALS: BP 120/67; PULSE 700; PULSE 77; RESP 16; TEMP 36.4; O2SAT 95
[2024-11-07] MEDS: CLOPIDOGREL 75MG TAB 75 MG PO (08:00)
[2024-11-07] MEDS: SERTRALINE 50MG TABLET 50 MG PO (08:00)
[2024-11-07] MEDS: EMPAGLIFLOZIN 10MG TABLET 10 MG PO (08:00)
[2024-11-07] MEDS: HEPARIN SODIUM 5,000 UNIT/ML VIAL 5000 UNIT SUBCUT ×2 (08:00→13:26)
[2024-11-07 08:01] LABS: Alanine Aminotransferase 19 U/L (12-78); Albumin Level 3.8 g/dl (3.5-5.0); Albumin/Globulin Ratio 1.2 (1.1-1.8); Alkaline Phosphatase 65 U/L (38-126); Anion Gap 13.9 mEq/L (5-15); Aspartate Amino Transferase 27 U/L (14-36); Bilirubin,Total 0.4 mg/dl (0.2-1.3); Blood Urea Nitrogen 64 mg/dl (7-17); Calcium 9.0 mg/dl (8.4-10.2); Carbon Dioxide 27 mmol/L (22.0-30.0); Chloride 99 mmol/L (98-107); Creatinine Clearance Estimated 19 mL/min (50-200); Creatinine,Serum 3.90 mg/dl (0.52-1.04); Estimated Glomerular Filt Rate 12 ml/min (>60); GFR (African American) 14 ML/MIN (>60); Globulin 3.1 g/dL (1.3-3.2); Glucose 189 mg/dl (74-100); Potassium 3.9 mmoL/L (3.5-5.1); Sodium 136 mmol/L (136-145); Total Protein,Serum 6.9 g/dl (6.3-8.2)
--- NOTE | 2024-11-07 10:50 | EXP.DC.SUM ---
General Admission date:: 11/02/24 Discharge date: 11/07/24 HPI HPI HPI: 54-year-old female presents emergency department due to chest pain. She initially went to her primary care physician due to elevated blood pressure and chest pain described as pressure in her center chest. EKG demonstrated normal sinus rhythm with with initial concerns for anterior ST elevations.Symptoms have been present for approximately 2 to 3 days. On arrival blood pressure was 260 mmHg over 120. Repeat EKG demonstrated no ST deviations. She was started on nitroprusside drip and given IV Lasix x 1 with improvement of her blood pressure. On hospitalist consultation blood pressure is currently 170. She has relief of all of her symptoms, only complaint currently is lethargy and fatigue. Surgical history includes CABG Medical history includes CKD 4, hyperlipidemia, hypertension, 5 strokes She is compliant with all medical therapy History is independently obtained. Diagnostics and laboratory evaluation independently interpreted. Old prior records were reviewed. Case was discussed with interventional cardiology and also ER physician. Hospital Course Hospital Course Hospital Course: Ms. Head is a 54-year-old female who presented yesterday to the emergency department With chest pain that radiated to her left jaw and left shoulder and shortness of breath. Blood pressure was found to be 246/129, heart rate 93, EKG normal sinus rhythm. She also had a elevated creatinine of 1.5. She does state that she has a history of CKD. BNP was elevated at 3100. Patient did state that normally she has low blood pressure 90s over 60s. She also states that she occasionally has to take salt tablets to regulate her hypotension. Given the complexity of her blood pressure and labs patient was admitted for further evaluation by cardiology. Patient was taken to the District [facility] Director for a left heart cath, she received no intervention. Course complicated by contrast-induced nephropathy. Blood pressures have done better. Patient auto diuresing at this time with improving kidney function. Stable to discharge home with further management as an outpatient. Needs close follow-up with repeat labs in 1 week to monitor improvement in kidney function and stability of electrolytes. Problems addressed as follows: #Hypertensive emergency Presented with hypertensive emergency. Blood pressure improved with diuresis and treatment. Improved by morning. Cardiology was consulted. Decision made to evaluate with heart cath. Findings as follows: The right coronary artery Is dominant and has a proximal 70% stenosis mid vessel 70% stenosis followed by 50% stenosis. There is competitive flow from in the posterior descending artery The [place] ventriculogram reveals Preserved 60% The left ventricular end-diastolic pressure 10 mmHg DUARTE to LAD has an ostial proximal 30% calcified stenosis but otherwise patent into the LAD Saphenous to obtuse marginal artery occluded Saphenous to posterior descending artery widely patent. The posterior descending artery then collateralizes what appears to be either a ramus intermedius or a diagonal artery Right renal artery singular normal Left renal artery singular and has a distal 30% eccentric stenosis PLAN 1. Medical management for coronary artery disease 2. Maximize antianginal medications 3. Aggressive risk factor modification Blood pressure significantly improved. Plan to home regimen of Plavix, Jardiance, Crestor. Blood pressure 120/67 at time of charge. Was started on blood pressure meds during admission but unfortunately had hypotension. At this time holding JEREL, ARB, calcium channel katina and beta-blockers due to normotensive state and JOSELUIS. Reevaluate as outpatient ?Patient has history of a CABG, currently on Plavix 75 mg daily. Has aspirin allergy. ? Patient initially admitted for hypertensive crisis, no episodes of hypertension noted. ? Echo shows EF of 55%. #Chronic kidney disease #JOSELUIS ? Patient has CKD 3. Baseline creatinine approximately 1.5. Developed JOSELUIS after contrast from CTs and contrast from heart cath. Creatinine on admission was 1.5, peaked at 5.2, trended down in 48 hours to 3.2 prior to discharge. Making good urine. Was treated with 1 dose of 80 mg IV Lasix when her creatinine peaked at 5.2 due to development of oliguria. Put out 200 cc within 6 hours of administering Lasix. Monitored overnight and began to have significant diuresis over night with over 2 L of output. Following morning was administered an additional dose of Lasix with again a brisk response. Put out over 5 L of urine, -3 L since initiation of first dose of Lasix. No Lasix within 24 hours of discharge. Continuing to auto diurese well. Potassium remains stable at 3.9, BUN is not a toxic level. Anticipate improvement in kidney function over the next 2 to 5 days. Expect kidney function to continue to trend downward. Recommend BMP in 2 to 3 days to monitor for resolution of JOSELUIS. - Renal ultrasound obtained 11/05, no acute findings, no hydronephrosis noted. #Hyperlipidemia ? LDL goal less than 55, LDL currently 76. Rosuvastatin 10 mg daily. Patient states that PCP ordered Leqvio injection for hyperlipidemia, waiting for insurance approval. #Diabetes, type I ?Patient recently prescribed a insulin pump, patient's PCP saw her during admission and plans to work on better education for pump use. Patient was previously using insulin pen. Patient also takes Jardiance 10 mg daily. I personally assisted with making adjustments to her pump settings. Previously had correction factor set at 1 unit for 50 above 150. Decreased threshold to 140 and decreased correction factor to 1:35. Carb ratio 40 g to 1 unit. Not currently counting her carbs. Nutrition consulted to assist with that. Also needs to sync her new G7 to her OmniPod. This can be done when she changes to her new OmniPod. Walk-through the steps of how to do that with the patient. Glucose fairly well-controlled. Morning glucose 189 on day of discharge. #UTI, ruled out Bay catheter was placed for strict I's and O's, urinalysis showed 2+ protein, 1+ glucose, 1+ urine blood, 2+ leuk esterase, 50-100 urine WBC. Patient was started on Rocephin 1 g daily. Has received 3 doses total. Urine culture growing multiple organisms concerning for contaminant. At this time, will discontinue further antibiotics. No systemic signs of infection. White count normal at 5.8. Total time spent on discharge 38 minutes in counseling, documentation, chart review, and direct care with patient. Exam Data for Last 24 hours Vital signs and Labs for Last 24 Hours: Temp Pulse Resp BP Pulse Ox O2 Del Method O2 Flow Rate 97.5 F L 77 16 120/67 95 Room Air 1 11/07/24 08:00 11/07/24 08:00 11/07/24 08:00 11/07/24 08:00 11/07/24 08:00 11/07/24 08:50 11/03/24 12:30 Laboratory Results - last 24 hr 11/06/24 14:00: Sodium 131 L, Potassium 3.7, Chloride 96 L, Carbon Dioxide 21 L, Anion Gap 17.7 H, BUN 68 H, Creatinine 4.60 H, Estimated Creat Clear 17, Estimated GFR 10 L*, Est GFR ( Amer) 12 L*, Glucose 274 H D, Calcium 8.1 L 11/06/24 15:41: POC Glucose 350 H* 11/06/24 20:09: POC Glucose 293 H 11/06/24 21:45: Sodium 136, Potassium 3.7, Chloride 97 L, Carbon Dioxide 26, Anion Gap 16.7 H, BUN 70 H, Creatinine 4.30 H, Estimated Creat Clear 18, Estimated GFR 11 L*, Est GFR ( Amer) 13 L*, Glucose 256 H, Calcium 8.5 11/07/24 05:23: POC Glucose 190 H 11/07/24 07:05: WBC 5.8, RBC 4.07 L, Hgb 11.5 L, Hct 34.7 L, MCV 85.3, MCH 28.3, MCHC 33.1, RDW 14.3, Plt Count 202, MPV 10.8 H, Neut % (Auto) 74.7, Lymph % (Auto) 15.8, [place] % (Auto) 7.0, Eos % (Auto) 1.9, Baso % (Auto) 0.3, Neut # (Auto) 4.4, Lymph # (Auto) 0.9, [place] # (Auto) 0.4, Eos # (Auto) 0.1, Baso # (Auto) 0.0, Sodium 136, Potassium 3.9, Chloride 99, Carbon Dioxide 27, Anion Gap 13.9, BUN 64 H, Creatinine 3.90 H, Estimated Creat Clear 19, Estimated GFR 12 L*, Est GFR ( Amer) 14 L*, Glucose 189 H D, Calcium 9.0, Total Bilirubin 0.4, AST 27, ALT 19, Alkaline Phosphatase 65, Total Protein 6.9, Albumin 3.8 D, Globulin 3.1, Albumin/Globulin Ratio 1.2 I & O for Last 24 hours: Intake & Output 11/04/24 11/05/24 11/06/24 11/07/24 23:59 23:59 23:59 23:59 Intake Total 1160 / 1160 770 / 1010 1805 / 1805 120 / 120 Output Total 250 / 250 250 / 250 5350 / 5750 1300 / 1300 Balance 910 / 910 520 / 760 -3545 / -3945 -1180 / -1180 Weight 72.178 kg 78.698 kg 78.381 kg 73.437 kg Microbiology Reports for the Last 24 Hours: Microbiology 11/05/24 01:36 Urine,Clean Catch Urine Culture - Final Multiple organisms, suggests contamination. Constitutional Constitutional: no acute distress, chronically ill appearing and cooperative *Routine HEENT Exam Head: Present normocephalic Eye: Present EOMI and PERRL ENT: Present mucous membranes moist Comments: Puffy upper eyelids, significantly improved over the past 2 days; no drainage from eyes *Routine Neck Exam Neck: Present supple; Absent lymphadenopathy *Routine Respiratory Exam Respiratory: Present CTA bilaterally; Absent rhonchi, wheezes or crackles *Routine Cardiovascular Exam Cardiovascular: Present RRR *Routine Abdominal Exam Abdominal: Present soft and normoactive bowel sounds; Absent tenderness *Routine Rectal Exam Patient deferred: visual exam *Routine Exam Patient deferred: external exam *Routine Extremities Exam Extremities: Absent cyanosis, clubbing or edema Comments: OmniPod on right thigh, Dexcom on left arm *Routine Skin Exam Skin: Present intact and warm; Absent rash *Routine Neurological Exam Neurological: Present alert, oriented X3 and moving all extremities; Absent altered mental status Results Data Completed and Pending Labs on day of discharge: Labs from last 24 hours 11/07/24 11/07/24 11/06/24 07:05 05:23 21:45 WBC 5.8 RBC 4.07 L Hgb 11.5 L Hct 34.7 L MCV 85.3 MCH 28.3 MCHC 33.1 RDW 14.3 Plt Count 202 MPV 10.8 H Neut % (Auto) 74.7 Lymph % (Auto) 15.8 [place] % (Auto) 7.0 Eos % (Auto) 1.9 Baso % (Auto) 0.3 Neut # (Auto) 4.4 Lymph # (Auto) 0.9 [place] # (Auto) 0.4 Eos # (Auto) 0.1 Baso # (Auto) 0.0 Sodium 136 136 Potassium 3.9 3.7 Chloride 99 97 L Carbon Dioxide 27 26 Anion Gap 13.9 16.7 H BUN 64 H 70 H Creatinine 3.90 H 4.30 H Estimated Creat Clear 19 18 Estimated GFR 12 L* 11 L* Est GFR ( Amer) 14 L* 13 L* Glucose 189 H D 256 H POC Glucose 190 H Calcium 9.0 8.5 Total Bilirubin 0.4 AST 27 ALT 19 Alkaline Phosphatase 65 Total Protein 6.9 Albumin 3.8 D Globulin 3.1 Albumin/Globulin Ratio 1.2 0711/06/24 11/06/24 20:09 15:41 14:00 WBC RBC Hgb Hct MCV MCH MCHC RDW Plt Count MPV Neut % (Auto) Lymph % (Auto) [place] % (Auto) Eos % (Auto) Baso % (Auto) Neut # (Auto) Lymph # (Auto) [place] # (Auto) Eos # (Auto) Baso # (Auto) Sodium 131 L Potassium 3.7 Chloride 96 L Carbon Dioxide 21 L Anion Gap 17.7 H BUN 68 H Creatinine 4.60 H Estimated Creat Clear 17 Estimated GFR 10 L* Est GFR ( Amer) 12 L* Glucose 274 H D POC Glucose 293 H 350 H* Calcium 8.1 L Total Bilirubin AST ALT Alkaline Phosphatase Total Protein Albumin Globulin Albumin/Globulin Ratio DS: Diagnosis Discharge Diagnosis (1) Status post left heart catheterization: Status: Acute Code(s): Z98.890 - Other specified postprocedural states (2) Hypertensive emergency: Status: Acute Code(s): I16.1 - Hypertensive emergency (3) Hx of CABG: Status: Acute Code(s): Z95.1 - Presence of aortocoronary bypass graft (4) CKD (chronic kidney disease): Status: Acute Code(s): N18.9 - Chronic kidney disease, unspecified (5) Elevated LDL cholesterol level: Status: Acute Code(s): E78.00 - Pure hypercholesterolemia, unspecified (6) Migraine: Status: Acute Code(s): G43.909 - Migraine, unspecified, not intractable, without status migrainosus (7) JOSELUIS (acute kidney injury): Status: Acute Code(s): N17.9 - Acute kidney failure, unspecified (8) Urinary tract infection: Status: Acute Code(s): N39.0 - Urinary tract infection, site not specified (9) Contrast-induced nephropathy: Status: Acute Code(s): N14.11 - Contrast-induced nephropathy; T50.8X5A - Adverse effect of diagnostic agents, initial encounter Meds Home Medications and Allergies Home Medications ?Medication ?Instructions ?Recorded ?Confirmed ?Type 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 sensor (Dexcom G7 #9 ea 06/01/24 11/03/24 Rx Sensor device) 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,store receiver,cont #1 ea 06/01/24 11/03/24 Rx (Dexcom G7 Onshore Diver) clopidogrel 75 mg tablet (Plavix) 75 mg PO DAILY #90 tabs 06/03/24 11/03/24 Rx lancets 28 gauge (FreeStyle #100 ea 06/03/24 11/03/24 History Lancets) rosuvastatin 10 mg tablet (Crestor) 10 mg PO DAILY #30 tabs 06/03/24 11/03/24 Rx empagliflozin 10 mg tablet 10 mg PO DAILY #90 tabs 07/20/24 11/03/24 Rx (Jardiance) inclisiran 284 mg/1.5 mL 284 mg (1.5 mL) SQ [id number] 2 08/27/24 11/03/24 Rx subcutaneous syringe (Leqvio) doses #1.5 mL insulin pump cartridge,auto #1 ea 09/10/24 11/03/24 History dose,BT,G6/G7 with controller subcutaneous (Omnipod 5 G6-G7 Intro Kit(Gen 5) subcutaneous cartridge and controller) gabapentin 600 mg tablet 600 mg PO TID #90 tabs 09/18/24 11/03/24 Rx insulin pump cart,auto,BT,G6/7 #5 ea 10/16/24 11/03/24 Rx (Omnipod 5 G6-G7 Pods (Gen 5) subcutaneous cartridge) insulin lispro 100 unit/mL See Rx Instructions .Route .COMPLEX 11/03/24 11/03/24 History subcutaneous pen sertraline 50 mg tablet 50 mg PO DAILY 11/03/24 11/03/24 History New Prescriptions to Start Prescriptions: Allergies Allergy/AdvReac Type Severity Reaction Status Date / Time atorvastatin Allergy Severe lowers Verified 11/02/24 15:43 blood pressure aspirin (ASPIRIN) Allergy Intermediate I-HIVES Verified 11/02/24 15:43 latex (LATEX) Allergy Unknown RASH, HIVES Verified 11/02/24 15:43 midodrine AdvReac Severe Unknown Verified 11/03/24 08:13 allergy reaction Discharge Plan Disposition Patient Disposition: Home, Self-Care Condition: Fair Discharge Order Discharge Orders: Discharge Order (Routine); Ordered 11/07/24 Ordered By: Navin Freire Follow up Plan Follow up with: Oumou Sheikh APRN [Nurse Practitioner, Cardiology] - Enter time for follow up Referral Note: please call for appointment Lima Shannon APRN [Primary Care Provider, Family Practice] - Enter time for follow up Referral Note: please call for appointment Geneva Andrew APRN [Nurse Practitioner, Gastroenterology] - Enter time for follow up Referral Note: dysphagia please call for appointment Prescriptions/Medication Reconciliation: Continued (DME) Dexcom G7 Onshore Diver Misc See Rx Instructions .Route Qty: 1 6RF Rx Instructions: As directed (DME) lancets [FreeStyle Lancets] 28 gauge misc See Rx Instructions .ROUTE .MEDSUPPLY Qty: 100 Rx Instructions: As directed clopidogrel [Plavix] 75 mg tablet 75 mg PO DAILY Qty: 90 3RF rosuvastatin [Crestor] 10 mg tablet 10 mg PO DAILY Qty: 30 5RF (DME) Omnipod 5 G6-G7 Intro Kt(Gen5) Cartridge See Rx Instructions .ROUTE .MEDSUPPLY Qty: 1 Rx Instructions: As directed (DME) Dexcom G7 Sensor Device See Rx Instructions .ROUTE .COMPLEX Qty: 9 0RF Dose Instruction: APPLY AND WEAR 1 SENSOR FOR 10 DAYS AND THEN CHANGE Rx Instructions: APPLY AND WEAR 1 SENSOR FOR 10 DAYS AND THEN CHANGE Jardiance 10 mg tablet 10 mg PO DAILY Qty: 90 3RF Leqvio 284 mg/1.5 mL syringe 284 mg SQ [id number] Qty: 1.5 0RF gabapentin 600 mg tablet 600 mg PO TID Qty: 90 3RF (DME) Omnipod 5 G6-G7 Pods (Gen 5) Cartridge See Rx Instructions .Route Qty: 5 6RF Rx Instructions: As directed sertraline 50 mg tablet 50 mg PO DAILY insulin lispro 100 unit/mL insulin pen See Rx Instructions .ROUTE .COMPLEX Rx Instructions: sliding scale DOSE SUBCUTANEOUSLY BEFORE MEALS (max daily DOSE is 100 UNITS EVERY 3 DAYS DIRECTED FOR omnipod) Other Ambulatory Orders: Basic Metabolic Panel (Routine) Timeframe: 3 Days Facility: [facility] - Location: Laboratory Ordered By: Navin Freire Problem Reconciliation Problems Reviewed?: Yes Patient Discharge Instructions ACTIVITY: Continue current activity DIET: continue same diet Patient Instructions: DI for Cardiac Catheterization, DI for High Blood Pressure, DI for Surgical Site Infection, DI for Acute Kidney Injury, Catheter-Associated Urinary Tract Infection Print Language: Prydeinig Providers Primary Care Provider: Lima Shannon Admit Provider: Navin Freire Attending Provider: Navin Freire
--- NOTE | 2024-11-07 10:52 | PC.NURSE ---
pt dexcom reading glucose of 400. pt self treated with insulin pump with 13.36 units of insulin. will revaluate shortly after administration.
[2024-11-07 12:00] VITALS: PULSE 80
[2024-11-07 13:53] LABS: Anion Gap 15.7 mEq/L (5-15); Blood Urea Nitrogen 61 mg/dl (7-17); Calcium 8.5 mg/dl (8.4-10.2); Carbon Dioxide 26 mmol/L (22.0-30.0); Chloride 94 mmol/L (98-107); Creatinine Clearance Estimated 23 mL/min (50-200); Creatinine,Serum 3.20 mg/dl (0.52-1.04); Estimated Glomerular Filt Rate 15 ml/min (>60); GFR (African American) 18 ML/MIN (>60); Glucose 385 mg/dl (74-100); Potassium 3.7 mmoL/L (3.5-5.1); Sodium 132 mmol/L (136-145)
--- NOTE | 2024-11-09 10:18 | SW/DCPLANNER ---
Spoke with patient on the phone. Patient stated that she is doing well and that her body just feels like she has been scrambled. I suggested that the patient call cardiology and follow up with them. Patient stated that she hasnt called and scheduled her follow up just yet. Patient stated that she was not prescribed any new medicine. Patient stated that she has no concerns or questions at this time. Sergio Mehta
== END 2024-11-07 16:01 | disposition home or self-care (01) | DRG 286 ==
LOC: ER 17:07 → ICU 20:18 → 2ND 11-04 16:34 → ICU 11-04 16:34
PROVIDERS: Internal Medicine; Student in an Organized Health Care Education/Training Program; Admitting Provider Internal Medicine Adolescent Medicine; Emergency Provider Emergency Medicine; PCP Family Medicine; Visit Provider Internal Medicine Adolescent Medicine
PROC: 4A023N7 Measurement of Cardiac Sampling and Pressure, Left Heart, Percutaneous Approach (ICD-10-PCS; CPT 93452; principal; 2024-11-03 13:00)
PROC: 4A023N7 Measurement of Cardiac Sampling and Pressure, Left Heart, Percutaneous Approach (ICD-10-PCS; 2024-11-03 13:00)
DX: I25.110 Atherosclerotic heart disease of native coronary artery with unstable angina pectoris (principal); N17.0 Acute kidney failure with tubular necrosis; I16.1 Hypertensive emergency; N18.4 Chronic kidney disease, stage 4 (severe); I12.9 Hypertensive chronic kidney disease with stage 1 through stage 4 chronic kidney disease, or unspecified chronic kidney disease; I70.1 Atherosclerosis of renal artery; E10.22 Type 1 diabetes mellitus with diabetic chronic kidney disease; E78.00 Pure hypercholesterolemia, unspecified; G43.909 Migraine, unspecified, not intractable, without status migrainosus; N14.11 Contrast-induced nephropathy; T50.8X5A Adverse effect of diagnostic agents, initial encounter; F17.200 Nicotine dependence, unspecified, uncomplicated; Z95.1 Presence of aortocoronary bypass graft; Z79.899 Other long term (current) drug therapy; Z79.02 Long term (current) use of antithrombotics/antiplatelets; Z79.4 Long term (current) use of insulin; Z79.83 Long term (current) use of bisphosphonates; Z88.6 Allergy status to analgesic agent; Z88.8 Allergy status to other drugs, medicaments and biological substances
CPT/HCPCS: 36415; 51702; 70450; 70496; 70498; 71045; 71046; 71275; 74018; 74174; 76770; 80048; 80053; 80061; 80074; 81001; 82803; 82962; 83036; 83605; 83690; 83735; 83880; 84100; 84436; 84443; 84484; 85025; 85610; 85730; 87081; 87086; 87389; 93005; 93306; 93926; 93976; 99152; C1725; C1769; C1894; J0131; J0696; J1100; J1200; J1644; J1938; J2003; J2250; J2405; J2765; J3010; J3475; J7040; J7060; J7120; Q9967

== ENCOUNTER 2024-11-23 15:30 | Outpatient (CLI) | payer OTHER, SELFPAY ==
--- OUTSIDE RECORDS SUMMARY | 2024-11-23 15:33 | XMS_ITS | Clinical Summary ---
Author Organization [facility] Address [address] [place] [address] Phone Care Team Providers Care Test Facility Engineer Name Role Phone Abhijeet Joel APRN Primary Care Provider + Mario Walls MD Unavailable [phone] Allergies Active Allergy Reactions Criticality Noted [...] Strip 09/26/19 Active sodium chloride 1,000 mg [facility] Tablet, Soluble Take 1 Tablet by mouth 2 times daily. 60 Tablet 11 11/10/19 23 Active insulin syringe-needle U-100 0.3 mL 31 gauge x 15/64 [facility] SyringeIndicatio ns:Dyslipidemia associated with type 2 diabetes mellitus ([facility]) Use as directed to inject insulin. E11.65 100 Each 12/15/19 Active Insulin Mccl[place], Disposable, (NICOLASA PEN NEEDLE) 32 gauge x 5/32 [facility] NeedleIndication s:Dyslipidemia associated with type 2 diabetes mellitus ([facility]) Use with insulin 4 times daily 400 Each 1 12/18/19 23 Active Blood-Glucose Meter (FREESTYLE LITE METER) [facility] KitIndications:T ype 2 diabetes mellitus with stage 3a chronic kidney disease, with long-term current use of insulin ([facility]) 1 Kit by [facility].(Non-Drug; Combo Route) route 3 times daily. 1 Kit 05/29/19 Active Blood Sugar Diagnostic (FREESTYLE TEST) [facility] StripIndications :Type 2 diabetes mellitus with stage 3a chronic kidney disease, with long-term current use of insulin ([facility]) 1 Strip by [facility].(Non-Drug; Combo Route) route 3 times daily. 100 Each 05/29/19 24 Active Lancets [facility] MiscIndications: Type 2 diabetes mellitus with stage 3a chronic kidney disease, with long-term current use of insulin ([facility]) check FSBS 3 times a day or [...] 4 07/01/19 24 Active Blood Pressure Monitor [facility] KitIndications:B lood pressure instability,Orth ostatic hypotension,Esse ntial hypertension Check and record blood pressure daily and also prn with any feelings of lightheadedness and syncope 1 Kit 07/11/19 24 Active Blood-Glucose Sensor (DEXCOM G7 SENSOR) [facility] DeviceIndication s:Dyslipidemia associated with type 2 diabetes mellitus (HCC) 1 Each by [facility].(Non-Drug; Combo Route) route every 10 days. CHNAGE [...] UTI 11/09/2022 Coronary artery disease invo lving belkofski coronary artery of belkofski heart with angina pectoris 10/02/2022 Orthostatic hypotension [...] Glomerulosclerosis ) Plan- -Checking MRI with IV [id number] further evaluate lesions seen on both kidneys. [...] to [facility] maintenance 09/27/2021 Overview (09/27/2021): MANUSCRIPT EDITOR: Needs to establish MANUSCRIPT EDITOR care and make an appointment soon. Referral Given for [facility]. 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 Checking level Hyperuricemia 09/25/2021 History of CVA (cerebrovascular accident) 2020 Assessment & Plan (09/27/2021 8:01 PM EDT): Sees neurology. No residual deficits Coronary artery disease invo lving belkofski coronary artery of belkofski heart without angina pectoris 04/03/2021 Type 2 [...] TSH 09/27/2021 Acute intractable tension-type headache 03/04/2020 Immunizations Immunization Administration Dates Next Due Hepatitis A, Adult 03/18/2018 Surgical History Surgery Date Site/Laterality Comments APPENDECTOMY KNEE SURGERY CHOLECYSTECTOMY COSMETIC SURGERY face and body TUBAL LIGATION 05/06/2003 - 05/05/2004 UPPER GASTROINTESTINAL ENDOSCOPY 02/13/2016 N/A Surgeon: Jailyn Vieira MD; Location: [facility]; Service: Endoscopy COLONOSCOPY CARDIAC SURGERY [...] at [facility] Hepatitis B Motion sickness Pneumonia MD (myocardial infarction) (HCC) Blood circulation, collateral Heartburn Stroke (HCC) 2019, 2019, 2020 , 2021 Post-operative nausea and vomiting extreme N/V Coronary artery disease invo lving belkofski coronary artery of belkofski heart without angina pectoris 04/03/2021 Hyperglycemia due [...] Date Recorded PHQ-2 Total Score 6 05/01/2023 [facility] [place] [facility] - Occupational Stress [...] - 145 mmol/L 05/03/2023 8:14 AM EST [facility] Potassium 3.5 3.5 - 5.0 mmol/L 05/03/2023 8:14 AM EST [facility] Chloride 104 98 - 107 mmol/L 05/03/2023 8:14 AM EST [facility] Total CO2 23 22 - 29 mmol/L 05/03/2023 8:14 AM EST [facility] Anion Gap 11 7 - 16 mmol/L 05/03/2023 8:14 AM EST [facility] Calcium 8.0(L) 8.6 - 10.4 mg/dL 05/03/2023 8:14 AM EST [facility] Glucose Lvl 230(H) 74 - 100 mg/dL 05/03/2023 8:14 AM EST [facility] BUN 11 6 - 20 mg/dL 05/03/2023 8:14 AM EST [facility] Creatinine 1.25 0.51 - 1.30 mg/dL 05/03/2023 8:14 AM EST [facility] eGFR (CKD-EPIcr 2020) 51(L) >=60 mL/min/1.7 3 m2 05/03/2023 8:14 AM EST [facility] Comment:Estimated GFR was ca lculated using the CKD-EPIcr (2020) equation refit without race. The equation is recommended by the National Kidney Foundation - [employer]ph[employer] Task Force. Blood VENOUS BLOOD / Unknown Venipuncture / Unknown 05/03/2023 7:30 AM EST 05/03/2023 7:48 AM EST Jose Zacarias MD CHEMISTRY ORDERABLES Final Resul t Performing Organization Address City/[facility]/ZIP Co de Phone Number [facility] [address] [place] [address] * GMED COLONOSCOPY (02/14/2016 10:30 AM EDT) 02/14/2016 10:3 0 AM EDT Impressions [facility] - 02/14/2016 10:53 AM EDT Otherwise [...] Vieira MD GI PROCEDURE ORDERABLES Final Result [facility] [address] [place] [address] from Last 3 Months or Most Recently Relevant to Health Maintenance Insurance [facility] [place] [address] AETNA [facility] [place] [address] Advance Directives For more information, please contact: [phone] * Full Code (Latest Code Status on [...] 4:05 PM 04/14/2021 5:40 PM Care Teams Test Facility Engineer Relationship Specialty Start Date End Date Abhijeet Jeol APRN [address] [place] [address] PCP - General Nurse Practitioner-Family 09/27/21 Mario Walls MD [address] [address] Internal Medicine-Cardiovascular Disease 06/18/23
--- OUTSIDE RECORDS SUMMARY | 2024-11-23 15:33 | XMS_ITS | Clinical Summary ---
Author Organization [facility] Address [address] [place] [address] Care Team Providers Care Cone Sewer Name Role Phone Reji Velazquez Primary Care Provider [phone] Abhijeet Espinoza MD Unavailable [phone] Allergies Active Allergy Reactions Criticality Noted Date [...] Description 03/26/2025 10:00 AM EST Office Visit [facility] [address] [place] [address] Noé Kinsey MD [address] [place] [address] Health Maintenance Due Date Last Done [...] 2019 UKY-Zoster Vaccines (1 of 2) 2019 [id number]-00 Vaccine (1 - 20 24- season) 2024 [...] femaleDate of Service: 01/27/2019 eferring Phy:Thelma ValerioAccount: [id number] Verified By: Caitlyn Frazier M.D. on 01/28/2019 [...] on Jan 28 2019 3:57P Transcribed by: [facility] on Jan 28 2019 3:57P Dictated by: CAITLYN FRAZIER M.D. on Jan 28 2019 3:57P Patient Name:Janay Ellis : 1970 Age: 48 Gender: femaleDate of Service: 01/27/2019 eferring Phy:Thelma ValerioAccount: [id number] Thelma Valerio , FINAL REPORT PROCEDURE: Tomosynthesis [...] Gender: femaleDate of Service:01/27/2019 eferring Phy:Thelma ValerioAccount: [id number] Thelma Carrion Teodoro , FINAL REPORT PROCEDURE: [...] Gender: femaleDate of Service:01/27/2019 eferring Phy:Thelma ValerioAccount: [id number] Verified By: Caitlyn Frazier M.D. on 01/28/2019 at 03:52:08 PM Page 2 of 2 us Historical Provider MD REID BI PROCEDURES Final R esult from Last 3 Months or Most Recently Relevant to Health Maintenance Insurance [employer] Care Teams Cone Sewer Relationship Specialty Start Date End Date Reji Velazquez DO [address] [place] [address] PCP - General 07/28/24 Abhijeet Espinoza MD [address] [place] [address] 07/28/24
[2024-11-23 16:32] LABS: Hematocrit 37.4 % (37.0-47.0); Hemoglobin 12.5 g/dL (12.2-16.2); Immature Granulocytes % 0.3 %; Mean Corpuscular HGB Conc 33.4 g/dL (31.8-35.4); Mean Corpuscular Hemoglobin 29.2 pg (27.0-31.2); Mean Corpuscular Volume 87.4 fl (81-99); Nucleated Red Blood Cells % 0 %; Platelet Count 272 K/mm3 (142-424); Red Blood Count 4.28 M/mm3 (4.20-5.40); Red Cell Distribution Width-SD 46.0 fL; White Blood Count 7.7 K/mm3 (4.8-10.8)
[2024-11-23 17:30] LABS: Albumin Level 4.2 g/dl (3.5-5.0); Chloride 100 mmol/L (98-107); Potassium 3.8 mmoL/L (3.5-5.1); Sodium 135 mmol/L (136-145)
[2024-11-23 17:32] LABS: Anion Gap 11.8 mEq/L (5-15); Bilirubin,Unconjugated 0.1 mg/dL (0.0-1.1); Blood Urea Nitrogen 34 mg/dl (7-17); Carbon Dioxide 27 mmol/L (22.0-30.0); Creatinine,Serum 1.60 mg/dl (0.52-1.04); Estimated Glomerular Filt Rate 33 ml/min (>60); GFR (African American) 40 ML/MIN (>60)
[2024-11-23 17:33] LABS: Alanine Aminotransferase 40 U/L (12-78); Alkaline Phosphatase 78 U/L (38-126); Aspartate Amino Transferase 37 U/L (14-36); Bilirubin,Direct 0.5 mg/dl (0.0-0.4); Bilirubin,Indirect 0.1 mg/dL (0.0-0.9); Bilirubin,Total 0.6 mg/dl (0.2-1.3); Calcium 9.3 mg/dl (8.4-10.2); Glucose 216 mg/dl (74-100); Total Protein,Serum 7.3 g/dl (6.3-8.2)
== END 2024-11-23 23:59 | disposition home or self-care (01) ==
LOC: LAB 15:31
PROVIDERS: PCP Family Medicine; Visit Provider Nurse Practitioner
DX: I10 Essential (primary) hypertension (principal); I25.118 Atherosclerotic heart disease of native coronary artery with other forms of angina pectoris; E78.2 Mixed hyperlipidemia
CPT/HCPCS: 36415; 80048; 80076; 85025

== ENCOUNTER 2024-12-14 14:12 | Outpatient (CLI) | payer OTHER, SELFPAY ==
[2024-12-14 20:23] LABS: Alanine Aminotransferase 39 U/L (12-78); Albumin Level 4.0 g/dl (3.5-5.0); Albumin/Globulin Ratio 1.5 (1.1-1.8); Alkaline Phosphatase 79 U/L (38-126); Amylase 118 U/L (30-110); Anion Gap 9.8 mEq/L (5-15); Aspartate Amino Transferase 52 U/L (14-36); Bilirubin,Total 0.3 mg/dl (0.2-1.3); Blood Urea Nitrogen 24 mg/dl (7-17); Calcium 9.0 mg/dl (8.4-10.2); Carbon Dioxide 28 mmol/L (22.0-30.0); Chloride 104 mmol/L (98-107); Creatinine,Serum 1.50 mg/dl (0.52-1.04); Estimated Glomerular Filt Rate 36 ml/min (>60); GFR (African American) 44 ML/MIN (>60); Globulin 2.6 g/dL (1.3-3.2); Glucose 97 mg/dl (74-100); Potassium 3.8 mmoL/L (3.5-5.1); Sodium 138 mmol/L (136-145); Total Protein,Serum 6.6 g/dl (6.3-8.2)
[2024-12-14 21:17] LABS: Lipase 733 U/L (23-300)
--- OUTSIDE RECORDS SUMMARY | 2024-12-15 13:31 | XMS_ITS | Clinical Summary ---
Author Organization [facility] Address [address] [place] [address] Phone Care Team Providers Care Production Sanitizer Name Role Phone Abhijeet Joel APRN Primary Care Provider + Mario Walls MD Unavailable [phone] Allergies Active Allergy Reactions Criticality Noted [...] Strip 09/26/19 Active sodium chloride 1,000 mg [facility] Tablet, Soluble Take 1 Tablet by mouth 2 times daily. 60 Tablet 11 11/10/19 23 Active insulin syringe-needle U-100 0.3 mL 31 gauge x 15/64 [facility] SyringeIndicatio ns:Dyslipidemia associated with type 2 diabetes mellitus ([facility]) Use as directed to inject insulin. E11.65 100 Each 12/15/19 Active Insulin [place], Disposable, (NICOLASA PEN NEEDLE) 32 gauge x 5/32 [facility] NeedleIndication s:Dyslipidemia associated with type 2 diabetes mellitus ([facility]) Use with insulin 4 times daily 400 Each 1 12/18/19 23 Active Blood-Glucose Meter (FREESTYLE LITE METER) [facility] KitIndications:T ype 2 diabetes mellitus with stage 3a chronic kidney disease, with long-term current use of insulin ([facility]) 1 Kit by [facility].(Non-Drug; Combo Route) route 3 times daily. 1 Kit 05/29/19 Active Blood Sugar Diagnostic (FREESTYLE TEST) [facility] StripIndications :Type 2 diabetes mellitus with stage 3a chronic kidney disease, with long-term current use of insulin ([facility]) 1 Strip by [facility].(Non-Drug; Combo Route) route 3 times daily. 100 Each 05/29/19 24 Active Lancets [facility] MiscIndications: Type 2 diabetes mellitus with stage 3a chronic kidney disease, with long-term current use of insulin ([facility]) check FSBS 3 times a day or [...] 4 07/01/19 24 Active Blood Pressure Monitor [facility] KitIndications:B lood pressure instability,Orth ostatic hypotension,Esse ntial hypertension Check and record blood pressure daily and also prn with any feelings of lightheadedness and syncope 1 Kit 07/11/19 24 Active Blood-Glucose Sensor (DEXCOM G7 SENSOR) [facility] DeviceIndication s:Dyslipidemia associated with type 2 diabetes mellitus (HCC) 1 Each by [facility].(Non-Drug; Combo Route) route every 10 days. 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 Referral Given for [facility]. 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 Checking level Hyperuricemia 09/25/2021 History of CVA (cerebrovascular accident) 2020 Assessment & Plan (09/27/2021 8:01 PM EDT): Sees neurology. No residual deficits Coronary artery disease invo lving council coronary artery of council heart without angina pectoris 04/03/2021 Type 2 [...] 02/13/2016 N/A Surgeon: Jailyn Vieira MD; Location: [facility] ENDOSCOPY; Service: Endoscopy COLONOSCOPY CARDIAC SURGERY triple bypass UPPER GASTROINTESTINAL ENDOSCOPY 05/16/2021 N/A ESOPHAGOGASTRODUODENOS COPY with biopsy and savary dilation; Surgeon: Cleveland Thomas DO; Location: ED ENDOSCOPY; Service: Endoscopy 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 Date Comments Diabetes mellitus (HCC) Renal disorder Multi-organ failure with liver failure Liver failure (HCC) reports is o n transplant list at [facility] Hepatitis B Motion sickness Pneumonia [place] (myocardial infarction) (HCC) Blood circulation, collateral Heartburn Stroke (HCC) 2019, 2019, 2020 , 2021 Post-operative nausea and vomiting extreme N/V Coronary artery disease invo lving council coronary artery of council heart without angina pectoris 04/03/2021 Hyperglycemia due [...] Date Recorded PHQ-2 Total Score 6 05/01/2023 [facility] [place] of Occupat ional Health - Occupational Stress [...] of 2) 2019 Breast Cancer Screening 01/27/2021 01/27/2019, 01/27 Annual Wellness Exam 09/27/2022 09/27/2021 COVID-19 Vaccine ( season) 2024 Kidney Health: eGFR 05/03/2024 05/03/2023, 05/02/2023, 05/01/2023, Additional history exists Influenza Vaccine (#1) 2025 Hemoglobin A1c 02/25/2025 08/26/2024, 11/0 10/2023, 11/19/2023, Additional history exists Kidney Health: uACR 03/11/2025 03/11/2024, 11/19/2023, 08/23/2022, Additional history exists Lipids 08/26/2025 08/26/2024, 11/03, 08/23/2022, Additional history exists Colon Cancer Screening 02/13/2026 Colonoscopy 02/13/2026 02/14/2016, [...] - 145 mmol/L 05/03/2023 8:14 AM EST [facility] Potassium 3.5 3.5 - 5.0 mmol/L 05/03/2023 8:14 AM EST [facility] Chloride 104 98 - 107 mmol/L 05/03/2023 8:14 AM EST [facility] Total CO2 23 22 - 29 mmol/L 05/03/2023 8:14 AM EST [facility] Anion Gap 11 7 - 16 mmol/L 05/03/2023 8:14 AM EST [facility] Calcium 8.0(L) 8.6 - 10.4 mg/dL 05/03/2023 8:14 AM EST [facility] Glucose Lvl 230(H) 74 - 100 mg/dL 05/03/2023 8:14 AM EST [facility] BUN 11 6 - 20 mg/dL 05/03/2023 8:14 AM EST [facility] Creatinine 1.25 0.51 - 1.30 mg/dL 05/03/2023 8:14 AM EST [facility] eGFR (CKD-EPIcr 2020) 51(L) >=60 mL/min/1.7 3 m2 05/03/2023 8:14 AM EST [facility] Comment:Estimated GFR was ca lculated using the CKD-EPIcr (2020) equation refit without race. The equation is recommended by the National Kidney Foundation - [employer] Society of Nephrology Task Force. Blood VENOUS BLOOD / Unknown Venipuncture / Unknown 05/03/2023 7:30 AM EST 05/03/2023 7:48 AM EST us Jose Zacarias MD CHEMISTRY ORDERABLES Final Resul t [facility] [address] [place] [address] * GMED COLONOSCOPY (02/14/2016 10:30 AM EDT) 02/14/2016 10:3 0 AM EDT Impressions [facility] - 02/14/2016 10:53 AM EDT Otherwise [...] Vieira MD GI PROCEDURE ORDERABLES Final Result [facility] [address] [place] [address] from Last 3 Months or Most Recently Relevant to Health Maintenance Insurance [facility] [employer] [facility] [place] [address] A[place] [employer] [facility] [place] [address] AETNA [facility] [place] [address] Advance Directives For more information, please contact: [phone] * Full Code (Latest Code Status on [...] 4:05 PM 04/14/2021 5:40 PM Care Teams Production Sanitizer Relationship Specialty Start Date End Date Abhijeet Joel APRN [address] [place], [place] [id number] PCP - General Nurse Practitioner-Family 09/27/21 Mario Walls MD [address] [address] Internal Medicine-Cardiovascular Disease 06/18/23
--- OUTSIDE RECORDS SUMMARY | 2024-12-15 13:31 | XMS_ITS | Clinical Summary ---
Author Organization [facility] Address [address] [place] [address] Care Team Providers Care Utility Technician Name Role Phone Reji Velazquez Primary Care Provider [phone] Abhijeet Espinoza MD Unavailable [phone] Allergies Active Allergy Reactions Criticality Noted Date [...] Description 03/26/2025 10:00 AM EST Office Visit [facility] [address] [place] [address] Noé Kinsey MD [address] [place] [address] Health Maintenance Due Date Last Done [...] 2019 UKY-Zoster Vaccines (1 of 2) 2019 [id number] Vaccine (1 - 20 24- season) 2024 [...] femaleDate of Service: 01/27/2019 eferring Phy:Thelma ValerioAccount: [id number] Verified By: Caitlyn Frazier M.D. on 01/28/2019 [...] on Jan 28 2019 3:57P Transcribed by: [facility] on Jan 28 2019 3:57P Dictated by: CAITLYN FRAZIER M.D. on Jan 28 2019 3:57P Patient Name:Janay Ellis : 1970 Age: 48 Gender: femaleDate of Service: 01/27/2019 eferring Phy:Thelma ValerioAccount: [id number] Thelma Valerio , FINAL REPORT PROCEDURE: Tomosynthesis [...] Gender: femaleDate of Service:01/27/2019 eferring Phy:Thelma ValerioAccount: [id number] Thelma Carrion Teodoro , FINAL REPORT PROCEDURE: [...] Gender: femaleDate of Service:01/27/2019 eferring Phy:Thelma ValerioAccount: [id number] Verified By: Caitlyn Frazier M.D. on 01/28/2019 at 03:52:08 PM Page 2 of 2 us Historical Provider MD REID BI PROCEDURES Final R esult from Last 3 Months or Most Recently Relevant to Health Maintenance Insurance [employer] Care Teams Utility Technician Relationship Specialty Start Date End Date Reji Velazquez DO [address] [place] [address] PCP - General 07/28/24 Abhijeet Espinoza MD [address] [place] [address] 07/28/24
== END 2024-12-14 23:59 | disposition home or self-care (01) ==
LOC: LAB.DROPOF 12-15 13:28
PROVIDERS: PCP Family Medicine; Visit Provider Family Medicine
DX: I12.9 Hypertensive chronic kidney disease with stage 1 through stage 4 chronic kidney disease, or unspecified chronic kidney disease (principal); N17.9 Acute kidney failure, unspecified; N18.9 Chronic kidney disease, unspecified; R39.198 Other difficulties with micturition
CPT/HCPCS: 80053; 82150; 83690; 87086

== ENCOUNTER 2024-12-16 11:01 | Outpatient (CLI) | payer OTHER, SELFPAY ==
[2024-12-16 19:27] LABS: Hematocrit 40.8 % (37.0-47.0); Hemoglobin 13.3 g/dL (12.2-16.2); Immature Granulocytes % 0.2 %; Mean Corpuscular HGB Conc 32.6 g/dL (31.8-35.4); Mean Corpuscular Hemoglobin 28.8 pg (27.0-31.2); Mean Corpuscular Volume 88.3 fl (81-99); Nucleated Red Blood Cells % 0 %; Platelet Count 265 K/mm3 (142-424); Red Blood Count 4.62 M/mm3 (4.20-5.40); Red Cell Distribution Width-SD 44.0 fL; White Blood Count 5.9 K/mm3 (4.8-10.8)
[2024-12-16 20:23] LABS: Alanine Aminotransferase 35 U/L (12-78); Albumin Level 4.1 g/dl (3.5-5.0); Albumin/Globulin Ratio 1.5 (1.1-1.8); Alkaline Phosphatase 84 U/L (38-126); Amylase 65 U/L (30-110); Anion Gap 13.2 mEq/L (5-15); Aspartate Amino Transferase 43 U/L (14-36); Blood Urea Nitrogen 22 mg/dl (7-17); Calcium 9.2 mg/dl (8.4-10.2); Carbon Dioxide 28 mmol/L (22.0-30.0); Chloride 104 mmol/L (98-107); Creatinine,Serum 1.70 mg/dl (0.52-1.04); Estimated Glomerular Filt Rate 31 ml/min (>60); GFR (African American) 38 ML/MIN (>60); Globulin 2.7 g/dL (1.3-3.2); Glucose 170 mg/dl (74-100); Lipase 174 U/L (23-300); Potassium 4.2 mmoL/L (3.5-5.1); Sodium 141 mmol/L (136-145); Total Protein,Serum 6.8 g/dl (6.3-8.2)
[2024-12-16 20:36] LABS: Bilirubin,Total 0.1 mg/dl (0.2-1.3)
--- OUTSIDE RECORDS SUMMARY | 2024-12-18 11:03 | XMS_ITS | Clinical Summary ---
Author Organization [facility] Address [address] [place] [address] Phone Care Team Providers Care Mill Roll Rewinder Name Role Phone Abhijeet Joel APRN Primary Care Provider + Mario Walls MD Unavailable [phone] Allergies Active Allergy Reactions Criticality Noted [...] Strip 09/26/19 Active sodium chloride 1,000 mg [facility] Tablet, Soluble Take 1 Tablet by mouth 2 times daily. 60 Tablet 11 11/10/19 23 Active insulin syringe-needle U-100 0.3 mL 31 gauge x 15/64 [facility] SyringeIndicatio ns:Dyslipidemia associated with type 2 diabetes mellitus ([facility]) Use as directed to inject insulin. E11.65 100 Each 12/15/19 Active Insulin [place], Disposable, (NICOLASA PEN NEEDLE) 32 gauge x 5/32 [facility] NeedleIndication s:Dyslipidemia associated with type 2 diabetes mellitus ([facility]) Use with insulin 4 times daily 400 Each 1 12/18/19 23 Active Blood-Glucose Meter (FREESTYLE LITE METER) [facility] KitIndications:T ype 2 diabetes mellitus with stage 3a chronic kidney disease, with long-term current use of insulin ([facility]) 1 Kit by [facility].(Non-Drug; Combo Route) route 3 times daily. 1 Kit 05/29/19 Active Blood Sugar Diagnostic (FREESTYLE TEST) [facility] StripIndications :Type 2 diabetes mellitus with stage 3a chronic kidney disease, with long-term current use of insulin ([facility]) 1 Strip by [facility].(Non-Drug; Combo Route) route 3 times daily. 100 Each 05/29/19 24 Active Lancets [facility] MiscIndications: Type 2 diabetes mellitus with stage 3a chronic kidney disease, with long-term current use of insulin ([facility]) check FSBS 3 times a day [...] 4 07/01/19 24 Active Blood Pressure Monitor [facility] KitIndications:B lood pressure instability,Orth ostatic hypotension,Esse ntial hypertension Check and record blood pressure daily and also prn with any feelings of lightheadedness and syncope 1 Kit 07/11/19 24 Active Blood-Glucose Sensor (DEXCOM G7 SENSOR) [facility] DeviceIndication s:Dyslipidemia associated with type 2 diabetes mellitus (HCC) 1 Each by [facility].(Non-Drug; Combo Route) route every 10 days. CHNAGE [...] UTI 11/09/2022 Coronary artery disease invo lving shawnee coronary artery of shawnee heart with angina pectoris 10/02/2022 Orthostatic hypotension [...] Glomerulosclerosis ) Plan- -Checking MRI with IV jpvsfonl-zxhswndbnt-xc further evaluate lesions seen on both kidneys. 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 Referral Given for [facility]. 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 Checking level Hyperuricemia 09/25/2021 History of CVA (cerebrovascular accident) 2020 Assessment & Plan (09/27/2021 8:01 PM EDT): Sees neurology. No residual deficits Coronary artery disease invo lving [place] coronary artery of [place]awnee heart without angina pectoris 04/03/2021 Type 2 [...] 02/13/2016 N/A Surgeon: Jailyn Vieira MD; Location: [facility] ENDOSCOPY; Service: Endoscopy COLONOSCOPY CARDIAC SURGERY triple bypass UPPER GASTROINTESTINAL ENDOSCOPY 05/16/2021 N/A ESOPHAGOGASTRODUODENOS COPY with biopsy and savary dilation; Surgeon: Cleveland Thomas DO; Location: [facility] ENDOSCOPY; Service: Endoscopy 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 Date Comments Diabetes mellitus (HCC) Renal disorder Multi-organ failure with liver failure Liver failure (HCC) reports is o n transplant list at [facility] Hepatitis B Motion sickness Pneumonia [place] (myocardial infarction) (HCC) Blood circulation, collateral Heartburn Stroke (HCC) 2019, 2019, 2020 , 2021 Post-operative nausea and vomiting extreme N/V Coronary artery disease invo lving [place]aw[place] coronary artery of [place]awnee heart without angina pectoris 04/03/2021 Hyperglycemia due [...] Date Recorded PHQ-2 Total Score 6 05/01/2023 [facility] [place] of Occupat ional Health - Occupational Stress [...] Vaccine ( season) 2024 Kidney Health: eGFR 11/18/2024 11/19/2023, 05/03/2023, 05/02/2023, Additional history exists Influenza Vaccine (#1) 2025 [...] Procedure Name Priority Date/Time Associated Diagnosis Comments MICROALBUMIN/CREATININ E RATIO URINE Routine 11/19/2023 COMPREHENSIVE METABOLIC PANEL Routine 11/19/2023 LIPID PANEL REFLEX Routine 11/19/2023 HEMOGLOBIN A1C Routine 11/19/2023 GMED COLONOSCOPY Routine 02/14/2016 10:3 0 AM [...] Final Resu lt SEP OFFICE * (ABNORMAL) COMPREHENSIVE METABOLIC PANEL (11/19/2023) Sodium 141 137 - 147 MMOL/L SEP OFFICE Comment:136-145 Potassium 4.2 3.4 - 5.3 MMOL/L SEP OFFICE Comment:3.5-5.1 CO2 22 MMOL/L SEP OFFICE Comment:22.0-30.0 Anion Gap 17.2 MMOL/L SEP OFFICE Comment:5-15 BUN 28(A) 4 - 21 MG/DL SEP OFFICE Comment:7-17 Creatinine 2.2(A) 0.5 - 1.1 MG/DL SEP OFFICE Comment:0.52-1.04 Estimated GFR 23 SEP OFFICE Comment:>60 Glucose 264 MG/DL SEP OFFICE Comment:74-100 Uric Acid 7.3 MG/DL SEP OFFICE Comment:2.5-6.2 Calcium 9.90 8.70 - 10.70 MG/DL SEP OFFICE Comment:8.4-10.2 Total Bilirubin 0.6 0.1 - 1.4 MG/DL SEP OFFICE Comment:0.2-1.3 AST 27 13 - 35 IU/L SEP OFFICE Comment:14-36 ALT 21 7 - 35 IU/L SEP OFFICE Comment:12-78 C-Reactive Protein 1.1 MG/DL SEP OFFICE Comment:0-4 Total Protein 8.5(A) 6.4 - 8.2 GM/DL SEP OFFICE Comment:6.3-8.2 Albumin 4.8 GM/DL SEP OFFICE Comment:3.5-5.0 Globulin 3.7 G/DL(CALC) SEP OFFICE Comment:1.3-3.2 Albumin/Globuli n Ratio 1.3 SEP OFFICE Comment:1.1-1.8 Chloride 106 99 - 108 MMOL/L SEP OFFICE Comment:98-107 Blood VENOUS BLOOD / Unknown 11/19/2023 Genet Bates MD CHEMISTRY ORDERABLES Final Resu lt SEP OFFICE * GMED COLONOSCOPY (02/14/2016 10:30 AM EDT) 02/14/2016 10:3 0 AM EDT Impressions [facility] - 02/14/2016 10:53 AM EDT [...] Vieira MD GI PROCEDURE ORDERABLES Final Result [facility] [address] [place] [address] from Last 3 Months or Most Recently Relevant to Health Maintenance Insurance [address] [place] [address] Imperative Health [facility] [address] [facility] [address] [facility] [place] [address] Advance Directives For more information, please contact: [phone] * Full Code (Latest Code Status on [...] 4:05 PM 04/14/2021 5:40 PM Care Teams Mill Roll Rewinder Relationship Specialty Start Date End Date Abhijeet Joel APRN [address] [place] [address] PCP - General Nurse Practitioner-Family 09/27/21 Mario Walls MD [address] [place] [id number] Internal Medicine-Cardiovascular Disease 06/18/23
--- OUTSIDE RECORDS SUMMARY | 2024-12-18 11:03 | XMS_ITS | Clinical Summary ---
Author Organization [facility] Address [address] [place] [address] Care Team Providers Care Telescope Maintenance Name Role Phone Reji Velazquez Primary Care Provider [phone] Abhijeet Espinoza MD Unavailable [phone] Allergies Active Allergy Reactions Criticality Noted Date [...] Description 03/26/2025 10:00 AM EST Office Visit [facility] [address] [place] [address] Noé Kinsey MD [address] [place] [phone] Health Maintenance Due Date Last Done [...] 2019 UKY-Zoster Vaccines (1 of 2) 2019 [id number] Vaccine (1 - 20 24- season) 2024 [...] femaleDate of Service: 01/27/2019 eferring Phy:Thelma ValerioAccount: [id number] Verified By: Caitlyn Frazier M.D. on 01/28/2019 [...] on Jan 28 2019 3:57P Transcribed by: [facility] on Jan 28 2019 3:57P Dictated by: CAITLYN FRAZIER M.D. on Jan 28 2019 3:57P Patient Name:Janay Ellis : 1970 Age: 48 Gender: femaleDate of Service: 01/27/2019 eferring Phy:Thelma ValerioAccount: [id number] Thelma Valerio , FINAL REPORT PROCEDURE: Tomosynthesis [...] Gender: femaleDate of Service:01/27/2019 eferring Phy:Thelma ValerioAccount: [id number] Thelma Carrion Teodoro , FINAL REPORT PROCEDURE: [...] Gender: femaleDate of Service:01/27/2019 eferring Phy:Thelma ValerioAccount: [id number] Verified By: Caitlyn Frazier M.D. on 01/28/2019 at 03:52:08 PM Page 2 of 2 Zzzhistorical Provider IMKaley BI PROCEDURES Luciana l Result from Last 3 Months or Most Recently Relevant to Health Maintenance Insurance [employer] Care Teams Telescope Maintenance Relationship Specialty Start Date End Date Reji Velazquez DO [address] [place] [address] PCP - General 07/28/24 Abhijeet Espinoza MD [address] [place] [address] 07/28/24
== END 2024-12-16 23:59 | disposition home or self-care (01) ==
LOC: LAB.DROPOF 12-18 11:02
PROVIDERS: PCP Family Medicine; Visit Provider Family Medicine
DX: K85.90 Acute pancreatitis without necrosis or infection, unspecified (principal); N17.9 Acute kidney failure, unspecified
CPT/HCPCS: 80053; 82150; 83690; 85025

== ENCOUNTER 2024-12-25 13:37 | Outpatient (CLI) | payer OTHER, SELFPAY ==
--- NOTE | 2024-12-25 13:45 | US_ITS ---
FINAL REPORT TECHNIQUE: Sonographic images of the kidneys and retroperitoneum were obtained in the longitudinal and transverse planes. CLINICAL HISTORY: .CKD FINDINGS: The right kidney measures 11.1 cm in qqan-lp-jvzg length. No hydronephrosis, mass, or stone. Cortical echogenicity and thickness are normal. The left kidney measures 10.8 cm in uwqe-wi-pwze length. No hydronephrosis or mass. Several echogenic foci may represent nonobstructing stones. Cortical echogenicity and thickness are normal. Limited evaluation of the spleen and liver demonstrate no acute abnormality. IMPRESSION: Possible left renal stones. Otherwise, unremarkable. Reviewed, Interpreted and Dictated by Adrianne Abbasi MD Transcribed by Ashanti Hernandez Authenticated and . [facility]
--- OUTSIDE RECORDS SUMMARY | 2024-12-25 13:45 | XMS_ITS | Clinical Summary ---
Author Organization [facility] Address [address] [place] [address] Care Team Providers Care Grit Blaster Name Role Phone Reji Velazquez Primary Care Provider [phone] Abhijeet Espinoza MD Unavailable [phone] Allergies Active Allergy Reactions Criticality Noted Date [...] Description 03/26/2025 10:00 AM EST Office Visit [facility] [address] [place] [address] Noé Kinsey MD [address] [place] [phone] Health Maintenance Due Date Last Done [...] 2019 UKY-Zoster Vaccines (1 of 2) 2019 [id number] Vaccine (1 - 20 24- season) 2024 [...] femaleDate of Service: 01/27/2019 eferring Phy:Thelma ValerioAccount: [id number] Verified By: Caitlyn Frazier M.D. on 01/28/2019 [...] on Jan 28 2019 3:57P Transcribed by: [facility] on Jan 28 2019 3:57P Dictated by: CAITLYN FRAZIER M.D. on Jan 28 2019 3:57P Patient Name:Janay Ellis : 1970 Age: 48 Gender: femaleDate of Service: 01/27/2019 eferring Phy:Thelma ValerioAccount: [id number] Thelma Valerio , FINAL REPORT PROCEDURE: Tomosynthesis [...] Gender: femaleDate of Service:01/27/2019 eferring Phy:Thelma ValerioAccount: [id number] Thelma Carrion Teodoro , FINAL REPORT PROCEDURE: [...] Gender: femaleDate of Service:01/27/2019 eferring Phy:Thelma ValerioAccount: [id number] Verified By: Caitlyn Frazier M.D. on 01/28/2019 at 03:52:08 PM Page 2 of 2 us Historical Provider IMG BI PROCEDURES Final Resu lt from Last 3 Months or Most Recently Relevant to Health Maintenance Insurance [employer] Care Teams Grit Blaster Relationship Specialty Start Date End Date Reji Velazquez DO [address] [place] [address] PCP - General 07/28/24 Abhijeet Espinoza MD [address] [place] [address] 07/28/24
--- OUTSIDE RECORDS SUMMARY | 2024-12-25 13:45 | XMS_ITS | Clinical Summary ---
Author Organization [facility] Address [address] [place] [address] Phone Care Team Providers Care Resaw Feeder Name Role Phone Abhijeet Joel APRN Primary Care Provider + Mario Walls MD Unavailable [phone] Allergies Active Allergy Reactions Criticality Noted [...] Strip 09/26/19 Active sodium chloride 1,000 mg [facility] Tablet, Soluble Take 1 Tablet by mouth 2 times daily. 60 Tablet 11 11/10/19 23 Active insulin syringe-needle U-100 0.3 mL 31 gauge x 15/64 [facility] SyringeIndicatio ns:Dyslipidemia associated with type 2 diabetes mellitus ([facility]) Use as directed to inject insulin. E11.65 100 Each 12/15/19 Active Insulin [place], Disposable, (NICOLASA PEN NEEDLE) 32 gauge x 5/32 [facility] NeedleIndication s:Dyslipidemia associated with type 2 diabetes mellitus ([facility]) Use with insulin 4 times daily 400 Each 1 12/18/19 23 Active Blood-Glucose Meter (FREESTYLE LITE METER) [facility] KitIndications:T ype 2 diabetes mellitus with stage 3a chronic kidney disease, with long-term current use of insulin ([facility]) 1 Kit by [facility].(Non-Drug; Combo Route) route 3 times daily. 1 Kit 05/29/19 Active Blood Sugar Diagnostic (FREESTYLE TEST) [facility] StripIndications :Type 2 diabetes mellitus with stage 3a chronic kidney disease, with long-term current use of insulin ([facility]) 1 Strip by [facility].(Non-Drug; Combo Route) route 3 times daily. 100 Each 05/29/19 24 Active Lancets [facility] MiscIndications: Type 2 diabetes mellitus with stage 3a chronic kidney disease, with long-term current use of insulin ([facility]) check FSBS 3 times a [...] 4 07/01/19 24 Active Blood Pressure Monitor [facility] KitIndications:B lood pressure instability,Orth ostatic hypotension,Esse ntial hypertension Check and record blood pressure daily and also prn with any feelings of lightheadedness and syncope 1 Kit 07/11/19 24 Active Blood-Glucose Sensor (DEXCOM G7 SENSOR) [facility] DeviceIndication s:Dyslipidemia associated with type 2 diabetes mellitus (HCC) 1 Each by [facility].(Non-Drug; Combo Route) route every 10 days. CHNAGE [...] UTI 11/09/2022 Coronary artery disease invo [place]ving [place] coronary artery of [place] heart with angina pectoris 10/02/2022 Orthostatic hypotension [...] Glomerulosclerosis ) Plan- -Checking MRI with IV [id number]-[id number] further evaluate lesions seen on both kidneys. [...] to GI Healthcare maintenance 09/27/2021 Overview (09/27/2021): REGULATORY AGENCY DIRECTOR: Needs to establish REGULATORY AGENCY DIRECTOR care and make an appointment soon. Referral Given for [facility]. 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 Checking level Hyperuricemia 09/25/2021 History of CVA (cerebrovascular accident) 2020 Assessment & Plan (09/27/2021 8:01 PM EDT): Sees neurology. No residual deficits Coronary artery disease invo lving [place] coronary artery of [place] heart without angina pectoris 04/03/2021 Type 2 [...] 02/13/2016 N/A Surgeon: Jailyn Vieira MD; Location: [facility]; Service: Endoscopy COLONOSCOPY CARDIAC SURGERY triple bypass UPPER GASTROINTESTINAL ENDOSCOPY 05/16/2021 N/A ESOPHAGOGASTRODUODENOS COPY with biopsy and savary dilation; Surgeon: Cleveland Thomas DO; Location: ED ENDOSCOPY; Service: Endoscopy 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 Date Comments Diabetes mellitus (HCC) Renal disorder Multi-organ failure with liver failure Liver failure (HCC) reports is o n transplant list at [facility] Hepatitis B Motion sickness Pneumonia [place] (myocardial infarction) (HCC) Blood circulation, collateral Heartburn Stroke (HCC) 2019, 2019, 2020 , 2021 Post-operative nausea and vomiting extreme N/V Coronary artery disease invo lving [place] coronary artery of [place] heart without angina pectoris 04/03/2021 Hyperglycemia due [...] Date Recorded PHQ-2 Total Score 6 05/01/2023 [facility] [place] of Occupat ional Health - Occupational Stress [...] 30 General 27.4(05/01/20 10:27 AM EST) No Marilela Fowler MD Maintain a healthy diet, exercise [...] EDT) 02/14/2016 10:3 0 AM EDT Impressions [facility] - 02/14/2016 10:53 AM [...] Vieira MD GI PROCEDURE ORDERABLES Final Result [facility] [address] [place] [address] from Last 3 Months or Most Recently Relevant to Health Maintenance [place] [address] [employer] [facility] [address] [facility] [address] [facility] [place] [address] Advance Directives For more information, please contact: [phone] * Full Code (Latest Code Status on [...] 4:05 PM 04/14/2021 5:40 PM Care Teams Resaw Feeder Relationship Specialty Start Date End Date Abhijeet Joel APRN [address] [place] [address] PCP - General Nurse Practitioner-Family 09/27/21 Mario Walls MD [address] [place] [id number] Internal Medicine-Cardiovascular Disease 06/18/23
== END 2024-12-25 23:59 | disposition home or self-care (01) ==
LOC: RAD 13:37
PROVIDERS: PCP Family Medicine; Visit Provider Urology
DX: N39.3 Stress incontinence (female) (male) (principal); R33.9 Retention of urine, unspecified; R93.421 Abnormal radiologic findings on diagnostic imaging of right kidney
CPT/HCPCS: 76770

== ENCOUNTER 2025-02-18 14:37 | Emergency (ER) | payer OTHER, SELFPAY ==
[2025-02-18] VITALS (8 sets, daily range): BP systolic 170–225; BP diastolic 92–141; PULSE 88–97; RESP 14–16; TEMP 36.7–36.8; O2SAT 95–99; BMI 27.3
--- NOTE | 2025-02-18 14:40 | ECG_ITS ---
APPROVED REPORT Exam: Resting ECG HR:95 bpm ECG Measurements Heart Rate 95 AXES NV 145 P 70 QRSd 98 QRS 49 QT 360 T 114 QTc 413 Conclusion SINUS RHYTHM POSSIBLE LEFT ATRIAL ENLARGEMENT [-0.1mV P-WAVE IN V1/V2] NONSPECIFIC ST & T-WAVE ABNORMALITY ABNORMAL ECG UNCONFIRMED REPORT Electronically signed by : Navin Urbnao, 02/20/2025 15:07:11
--- OUTSIDE RECORDS SUMMARY | 2025-02-18 14:49 | XMS_ITS | Clinical Summary ---
Author Organization [facility] Address [address] [place] [address] Care Team Providers Care Human Geography Instructor Name Role Phone Reji Velazquez Primary Care Provider [phone] Abhijeet Espinoza MD Unavailable [phone] Allergies Active Allergy Reactions Criticality Noted Date [...] Description 03/26/2025 10:00 AM EST Office Visit [facility] [address] [place] [address] Noé Kinsey MD [address] [place] [id number] Health Maintenance Due Date Last Done Comments [facility]-Depression Screening 1970 [facility]-Infant/Child/Adol SDOH Screenings 1970 [facility]- SDOH Screenings 1987 [...] 2019 [facility]-Zoster Vaccines (1 of 2) 2019 [facility]-Breast Cancer Screening 01/27/2021 01/27/2019 [id number] Vaccine (1 - 20 - season) 2025 [facility]-Influenza Vaccine (#1) 2025 [facility]-HIV Screening Completed 10/07/2015 [facility]-Hepatitis C Screening Completed 10/07/2015 [facility]-Hepatitis A Vaccines Aged Out 03/18/2018 No longer eligible based on patient's age to complete this topic HPV Vaccines Aged Out No longer eligi [...] TOMOSYNTHESIS BILATERAL Routine 01/27/2019 12:00 AM EDT ACUTE HEPATITIS PANEL Routine 10/07/2015 5:46 PM EDT HIV 1/2 ANTIBODY/ANTIGEN SCREEN WITH REFLEX TO HIV I/II DIFFERENTIATION Routine 10/07/2015 5:46 PM EDT from Last 3 Months or Most [...] femaleDate of Service: 01/27/2019 eferring Phy:Thelma ValerioAccount: [id number] Verified By: Caitlyn Frazier M.D. on 01/28/2019 [...] Jan 28 2019 3:57P Transcribed by: [facility] on Jan 28 2019 3:57P Dictated by: CAITLYN FRAZIER M.D. on Jan 28 2019 3:57P Patient Name:Janay Ellis : 1970 Age: 48 Gender: femaleDate of Service: 01/27/2019 eferring Phy:Thelma VlaerioAccount: [id number] Thelma Valerio , FINAL REPORT PROCEDURE: Tomosynthesis [...] distortion are evident. Procedure Note Caitlyn Frazier Armani - 09/11/2020 REQUESTING PHYSICIAN: THELMA VALERIO REASON [...] Jan 28 2019 3:57P Transcribed by: [facility] on Jan 28 2019 3:57P Dictated by: CAITLYN FRAZIER M.D. on Jan 28 2019 3:57P Patient Name:Janay Ellis : 1970 Age: 48 Gender: femaleDate of Service:01/27/2019 eferring Phy:Thelma ValerioAccount: [id number] Thelma Valerio , FINAL REPORT PROCEDURE: Tomosynthesis [...] Gender: femaleDate of Service:01/27/2019 eferring Phy:Thelma ValerioAccount: [id number] Verified By: Caitlyn Frazier M.D. on 01/28/2019 at 03:52:08 PM Page [address] [facility] Provider IMG BI PROCEDURES Final Resu lt * HIV 1 & 2 Antibody/Antigen Screen (10/07/2015 5:46 PM EDT) HIV 1 Result NONREACTIVE Screening for HIV 1 and 2 antibodies is NONREACTIVE. No confirmatory testing is required. [facility] 10/07/2015 5:4 6 PM EDT 10/07/2015 6:13 PM EDT Taylor Amin MD LAB BLOOD ORDERABLES [place] l Result SUNQUEST * Acute Hepatitis Panel (10/07/2015 5:46 PM EDT) Hepatitis B Surf Antigen BEING REPEATED TO CONFIRM [facility] Hepatitis C Antibody NEGATIVE Reference Range: Negative [facility] Hepatitis A Antibody IgM NEGATIVE Reference Value: Negative [facility]QUEST External Hepatitis B Core IgM (HBCM) POSITIVE Reference Value: Negative [facility] 10/07/2015 5:46 PM EDT 10/07/2015 6:13 PM EDT Taylor Amin MD LAB BLOOD ORDERABLES Luciana l Result [facility]QUEST from Last 3 Months or Most Recently Relevant to Health Maintenance Insurance [employer] [facility] MEDICAID Care Teams Human Geography Instructor Relationship Specialty Start Date End Date Reji Velazquez DO [address] [place] [address] PCP - General 07/28/24 Abhijeet Espinoza MD [address] [place] [address] 07/28/24
--- OUTSIDE RECORDS SUMMARY | 2025-02-18 14:49 | XMS_ITS | Clinical Summary ---
Author Organization [facility] Address [address] [place] [address] Phone Care Team Providers Care Picker And Packer Name Role Phone Abhijeet Joel APRN Primary Care Provider + Mario Walls MD Unavailable Allergies Active Allergy Reactions Criticality Noted Date [...] Strip 09/26/19 Active sodium chloride 1,000 mg [facility] Tablet, Soluble Take 1 Tablet by mouth 2 times daily. 60 Tablet 11 11/10/19 23 Active insulin syringe-needle U-100 0.3 mL 31 gauge x 15/64 [facility] SyringeIndicatio ns:Dyslipidemia associated with type 2 diabetes mellitus ([facility]) Use as directed to inject insulin. E11.65 100 Each 12/15/19 Active Insulin [place], Disposable, (NICOLASA PEN NEEDLE) 32 gauge x 5/32 [facility] NeedleIndication s:Dyslipidemia associated with type 2 diabetes mellitus ([facility]) Use with insulin 4 times daily 400 Each 1 12/18/19 23 Active Blood-Glucose Meter (FREESTYLE LITE METER) [facility] KitIndications:T ype 2 diabetes mellitus with stage 3a chronic kidney disease, with long-term current use of insulin ([facility]) 1 Kit by [facility].(Non-Drug; Combo Route) route 3 times daily. 1 Kit 05/29/19 Active Blood Sugar Diagnostic (FREESTYLE TEST) [facility] StripIndications :Type 2 diabetes mellitus with stage 3a chronic kidney disease, with long-term current use of insulin ([facility]) 1 Strip by [facility].(Non-Drug; Combo Route) route 3 times daily. 100 Each 05/29/19 24 Active Lancets [facility] MiscIndications: Type 2 diabetes mellitus with stage 3a chronic kidney disease, with long-term current use of insulin ([facility]) check FSBS 3 times a day or [...] 4 07/01/19 24 Active Blood Pressure Monitor [facility] KitIndications:B lood pressure instability,Orth ostatic hypotension,Esse ntial hypertension Check and record blood pressure daily and also prn with any feelings of lightheadedness and syncope 1 Kit 07/11/19 24 Active Blood-Glucose Sensor (DEXCOM G7 SENSOR) [facility] DeviceIndication s:Dyslipidemia associated with type 2 diabetes mellitus (HCC) 1 Each by [facility].(Non-Drug; Combo Route) route every 10 days. CHNAGE [...] UTI 11/09/2022 Coronary artery disease invo lving [place] coronary artery of [place] heart with angina pectoris 10/02/2022 Orthostatic hypotension [...] Glomerulosclerosis ) Plan- -Checking MRI with IV [id number] further evaluate lesions seen on both kidneys. [...] to GI Healthcare maintenance 09/27/2021 Overview (09/27/2021): PHARMACIST HELPER: Needs to establish PHARMACIST HELPER care and make an appointment soon. Referral Given for [facility]. 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 Checking level Hyperuricemia 09/25/2021 History of CVA (cerebrovascular accident) 2020 Assessment & Plan (09/27/2021 8:01 PM EDT): Sees neurology. No residual deficits Coronary artery disease invo lving [place] coronary artery of [place] heart without angina pectoris 04/03/2021 Type 2 [...] 02/13/2016 N/A Surgeon: Jailyn Vieira MD; Location: [facility]; Service: Endoscopy COLONOSCOPY CARDIAC SURGERY triple bypass UPPER GASTROINTESTINAL ENDOSCOPY 05/16/2021 N/A ESOPHAGOGASTRODUODENOS COPY with biopsy and savary dilation; Surgeon: Cleveland Thomas DO; Location: [facility] ENDOSCOPY; Service: Endoscopy 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 Date Comments Diabetes mellitus (HCC) Renal disorder Multi-organ failure with liver failure Liver failure (HCC) reports is o n transplant list at [facility] Hepatitis B Motion sickness Pneumonia [place] (myocardial infarction) (HCC) Blood circulation, collateral Heartburn Stroke (HCC) 2019, 2019, 2020 , 2021 Post-operative nausea and vomiting extreme N/V Coronary artery disease invo lving [place] coronary artery of [place] heart without angina pectoris 04/03/2021 Hyperglycemia due [...] Date Recorded PHQ-2 Total Score 6 05/01/2023 [facility] of Occupat ional Health - Occupational Stress [...] 01/27/2019, 01/27 Annual Wellness Exam 09/27/2022 09/27/2021 Kidney Health: eGFR 11/18/2024 11/19/2023, 05/03/2023, 05/02/2023, Additional history exists Kidney Health: uACR 11/18/2024 11/19/2023, 08/23/2022, 04/03/2021 COVID-19 Vaccine ( season) 2025 Influenza Vaccine (#1) 2025 Hemoglobin A1c 02/25/2025 08/26/2024, 11/0 10/2023, 11/19/2023, Additional history exists Lipids 08/26/2025 08/26/2024, 07/1 10/2023, 08/23/2022, Additional history exists Colon Cancer Screening [...] EDT) 02/14/2016 10:3 0 AM EDT Impressions [facility] - 02/14/2016 10:53 AM EDT Otherwise [...] Vieira MD GI PROCEDURE ORDERABLES Final Result [facility] [address] [place] [address] from Last 3 Months or Most Recently Relevant to Health Maintenance Insurance [facility] [address] [facility] [address] [employer] [facility] [place] [address] Advance Directives For more information, please contact: [phone] * Full Code (Latest Code Status on [...] 4:05 PM 04/14/2021 5:40 PM Care Teams Picker And Packer Relationship Specialty Start Date End Date Abhijeet Joel APRN [address] [place] [address] PCP - General Nurse Practitioner-Family 09/27/21 Mario Walls MD [address] [place] [address] Internal Medicine-Cardiovascular Disease 06/18/23
--- NOTE | 2025-02-18 14:56 | HMH.EDGENADL ---
Discharge Plan Disposition Patient Disposition: Home, Self-Care Condition: Good Prescriptions Prescriptions: No Action tamsulosin [Flomax] 0.4 mg capsule 0.4 mg PO DAILY 30 Days Qty: 30 0RF estradiol [Estrace] 0.01 % (0.1 mg/gram) cream 1 appful vaginal DAILY Qty: 42.5 2RF Rx Instructions: Finger technique daily x 14 and then 3 times weekly. furosemide 20 mg tablet 20 mg PO Patient Comments: TAKE ONE TABLET BY MOUTH EVERY DAY (DME) Dexcom G7 Screw Machine Tool Setter Misc See Rx Instructions .Route Qty: 1 6RF Rx Instructions: As directed (DME) lancets [FreeStyle Lancets] 28 gauge misc See Rx Instructions .ROUTE .MEDSUPPLY Qty: 100 Rx Instructions: As directed clopidogrel [Plavix] 75 mg tablet 75 mg PO DAILY Qty: 90 3RF (DME) Omnipod 5 G6-G7 Intro Kt(Gen5) Cartridge See Rx Instructions .ROUTE .MEDSUPPLY Qty: 1 Rx Instructions: As directed Leqvio 284 mg/1.5 mL syringe 284 mg SQ [id number] Qty: 1.5 2RF omeprazole 20 mg capsule,delayed release(DR/EC) 20 mg PO DAILY Qty: 30 2RF Jardiance 10 mg tablet 10 mg PO DAILY Qty: 90 3RF (DME) Omnipod 5 G6-G7 Pods (Gen 5) Cartridge See Rx Instructions .Route Qty: 5 6RF Rx Instructions: As directed sertraline 50 mg tablet See Rx Instructions .ROUTE .COMPLEX Qty: 60 1RF Dose Instruction: TAKE ONE TABLET BY MOUTH EVERY DAY Rx Instructions: TAKE ONE TABLET BY MOUTH EVERY DAY rosuvastatin [Crestor] 10 mg tablet 10 mg PO DAILY Qty: 30 5RF insulin lispro [Admelog U-100 Insulin lispro] 100 unit/mL solution 1 unit SQ DAILY Qty: 10 7RF Rx Instructions: Max dose 100 units daily, to use in the OmniPod (DME) Dexcom G7 Sensor Device See Rx Instructions .ROUTE .COMPLEX Qty: 9 0RF Dose Instruction: APPLY AND WEAR 1 SENSOR FOR 10 DAYS AND THEN CHANGE Rx Instructions: APPLY AND WEAR 1 SENSOR FOR 10 DAYS AND THEN CHANGE gabapentin 600 mg tablet 600 mg PO TID Qty: 90 0RF Ozempic 0.25 mg or 0.5 mg (2 mg/3 mL) pen injector 0.25 mg SQ WEEKLY Qty: 3 0RF Rx Instructions: for 4 weeks Referrals Follow up/Referrals: Lima Shannon APRN [Primary Care Provider, Family Practice] - See instructions Activity Restrictions/Add. Instructions Additional Instructions/Restrictions: I would like you to take your blood pressure every day at home in the morning and keep a journal. If your blood pressure continues to be greater than 160 on the top number or greater than 100 on the bottom number I would like you to follow-up with your primary care provider as you may need a high blood pressure medication. Return to the emergency department if you develop a headache, chest pain or any other acute symptoms. Clinical Impressions Clinical Impression: Decreased urine output, Hypertension Print Language Print Language: Nigerian Discharge ED Provider: Jaz Urbano General Adult HPI <Jaz Urbano MD - Last Filed: 02/18/25 14:59> General Chief complaint: Chest Pain Stated complaint: Chest pain Time Seen by Provider: 02/18/25 14:45 Mode of Arrival: Ambulatory Source of Information: Patient Description of Symptoms (Recalled from ER Triage Doc. by RN): pt states she was at her PCP when they did an EKG and told her it was off. She states her BP was 200 systolic at the office. pt c/o substernal chest pain ongoing for a few days. pt states her pain is constant, pressure and 5/10. pt also reports a [place]> History of Present Illness HPI narrative: Patient is a 54-year-old female presenting today with lower back discomfort and decreased urine output and hypertension. Says she has a history of stage IV chronic kidney disease she was admitted in the hospital in November earlier this year with significant hypertension which she states she normally has hypotension had a creatinine of 1.5 at that time peaked at 5.2. Her most recent creatinine has been back down into the mid ones. She went to her primary care doctor today because of her lower back discomfort to have her kidneys rechecked but she was significantly hypertensive and sent to the emergency department. Other than decreased urine output she has no other obvious signs or symptoms from historical standpoint of endorgan damage including shortness of breath chest pain etc. She states she normally takes sodium supplements for low blood pressure and is not typically treated for high blood pressure. She does claim that she has seen a whiteprinting machine operator here at [facility]. She is not currently being worked up or evaluated for dialysis. Related Data Home Medications ?Medication ?Instructions ?Recorded ?Confirmed lancets 28 gauge (FreeStyle #100 ea 06/03/24 02/18/25 Lancets) insulin pump cartridge,auto #1 ea 09/10/24 02/18/25 dose,BT,G6/G7 with controller subcutaneous (Omnipod 5 G6-G7 Intro Kit(Gen 5) subcutaneous cartridge and controller) furosemide 20 mg tablet 20 mg PO 02/18/25 02/18/25 Previous Rx's ?Medication ?Instructions ?Recorded 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,spray stainer,cont #1 ea 06/01/24 (Dexcom G7 Screw Machine Tool Setter) clopidogrel 75 mg tablet (Plavix) 75 mg PO DAILY #90 tabs 06/03/24 empagliflozin 10 mg tablet 10 mg PO DAILY #90 tabs 07/20/24 (Jardiance) insulin pump cart,auto,BT,G6/7 #5 ea 10/16/24 (Omnipod 5 G6-G7 Pods (Gen 5) subcutaneous cartridge) sertraline 50 mg tablet See Rx Instructions .Route 11/12/24 .COMPLEX #60 tabs rosuvastatin 10 mg tablet (Crestor) 10 mg PO DAILY #30 tabs 12/08/24 inclisiran 284 mg/1.5 mL 284 mg (1.5 mL) SQ [id number] 2 12/14/24 subcutaneous syringe (Leqvio) doses #1.5 mL omeprazole 20 mg capsule,delayed 20 mg PO DAILY #30 caps 12/14/24 release estradiol 0.01% (0.1 mg/gram) 1 appful vaginal DAILY #42.5 grams 12/21/24 vaginal cream (Estrace) tamsulosin 0.4 mg capsule (Flomax) 0.4 mg PO DAILY 30 days #30 caps 12/21/24 insulin lispro 100 unit/mL 1 unit (0.01 mL) SQ DAILY #10 mL 12/23/24 subcutaneous solution (Admelog U-100 Insulin lispro) 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 sensor (Dexcom G7 #9 ea 12/25/24 Sensor device) gabapentin 600 mg tablet 600 mg PO TID #90 tabs 02/12/25 semaglutide 0.25 mg or 0.5 mg (2 0.25 mg (0.368 mL) SQ WEEKLY #3 mL 02/12/25 mg/3 mL) subcutaneous pen injector (Ozempic) Allergies Allergy/AdvReac Type Severity Reaction Status Date / Time atorvastatin Allergy Severe lowers Verified 02/18/25 13:24 blood pressure aspirin (ASPIRIN) Allergy Intermediate I-HIVES Verified 02/18/25 13:24 latex (LATEX) Allergy Unknown RASH, HIVES Verified 02/18/25 13:24 midodrine AdvReac Severe Unknown Verified 02/18/25 13:24 allergy reaction [facility] <Jaz Urbano MD - Last Filed: 02/18/25 14:59> [facility] Disclaimer: The information contained in this section may have been updated after the patient was seen, as this information can be updated by other users. 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 CKD (chronic kidney disease) stage 4, GFR 15-29 ml/min Breast cancer screening Colon cancer screening Diabetic peripheral neuropathy Kidney insufficiency HLD (hyperlipidemia) HTN (hypertension) WARREN (dyspnea on exertion) CAD (coronary artery disease) PTSD (post-traumatic stress disorder) History of type 1 diabetes mellitus Gastroparesis diabeticorum History of gastroesophageal reflux (GERD) History of stroke Cholecystectomy planned Hypotension Angina pectoris Surgical History History of heart surgery Hx of appendectomy Social History Smoking Status: Never smoker alcohol intake: never substance use type: denies use current occupational status: unemployed Travel in the last 8 weeks?: None Have you lived/traveled outside US in past 30 days?: No Contact w/someone who lives/traveled outside US past 30 days?: No Exposure to someone with infectious disease in past 14 days?: No Do you have a fever (greater than 100.4 F or 38 C)?: No Have you tested positive for COVID-19?: No Exposed to someone with COVID-19 in past 14 days?: No Do you have a sore throat?: No Do you have a cough?: No Do you have any weakness?: No Do you have any diarrhea?: No Are you experiencing any unusual bleeding?: No Do you have any muscle aches/pain?: No Do you have any abdominal pain?: No Are you experiencing loss of taste or smell?: No Other 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 Have you received the Flu Vaccine for this season: No Have you received the Pneumonia Vaccine: No <Jaz Urbano MD - Last Filed: 02/18/25 14:59> ROS Obtained: Yes All systems reviewed & no additional complaints except as documented Physical Exam <Jaz Urbano MD - Last Filed: 02/18/25 14:59> General General appearance: alert and in no apparent distress Respiratory Respiratory exam: Present normal lung sounds bilaterally; Absent respiratory distress Cardiovascular Cardiovascular exam: Present regular rate and normal rhythm Abdominal Exam Abdominal exam: Present soft; Absent distention or tenderness Back Exam Back exam: Absent CVA tenderness (R) or CVA tenderness (L) Neurological Exam Neurological exam: Present alert and oriented X3 Medical Decision Making <Jaz Urbano MD - Last Filed: 02/18/25 14:59> Medical Records Screening: Per USPSTF and CDC recommendations, given the prevalence of disease in our region, it is our hospital?s policy to screen for HIV and viral Hepatitis for all patients aged 18 and over and those with ongoing risk factors. Nick Inquiry Pt receiving controlled substance: No Vital Signs: 02/18/25 14:45 02/18/25 15:01 02/18/25 15:30 Temperature 98.3 F Temperature Source Oral Pulse Rate 90 89 Pulse Rate [Left] 95 H Respiratory Rate 14 Blood Pressure 197/105 H 191/125 H Blood Pressure [Right Arm] 225/134 H Blood Pressure Mean Blood Pressure Mean [Right Arm] 164 Blood Pressure Source [Right Arm] Automatic Cuff Blood Pressure Position [Right Arm] Sitting 02 Sat by Pulse Oximetry 99 97 97 Oxygen Delivery Method Room Air 02/18/25 17:15 02/18/25 17:30 02/18/25 18:12 Temperature Temperature Source Pulse Rate 88 89 97 H Pulse Rate [Left] Respiratory Rate Blood Pressure 215/127 H 179/141 H Blood Pressure [Right Arm] Blood Pressure Mean Blood Pressure Mean [Right Arm] Blood Pressure Source [Right Arm] Blood Pressure Position [Right Arm] 02 Sat by Pulse Oximetry 97 95 98 Oxygen Delivery Method 02/18/25 18:13 Temperature Temperature Source Pulse Rate 92 H Pulse Rate [Left] Respiratory Rate Blood Pressure 191/109 H Blood Pressure [Right Arm] Blood Pressure Mean 136 Blood Pressure Mean [Right Arm] Blood Pressure Source [Right Arm] Blood Pressure Position [Right Arm] 02 Sat by Pulse Oximetry 98 Oxygen Delivery Method Lab Data Lab Results 02/18/25 14:46: WBC 7.6, RBC 5.10, Hgb 14.8, Hct 42.2, MCV 82.7, MCH 29.0, MCHC 35.1, RDW 13.1, Plt Count 257, MPV 9.8, Neut % (Auto) 66.4, Lymph % (Auto) 26.1, [place] % (Auto) 4.7, Eos % (Auto) 2.0, Baso % (Auto) 0.7, Neut # (Auto) 5.0, Lymph # (Auto) 2.0, [place] # (Auto) 0.4, Eos # (Auto) 0.2, Baso # (Auto) 0.1, Sodium 139, Potassium 3.4 L, Chloride 99, Carbon Dioxide 27, Anion Gap 16.4 H, BUN 20 H, Creatinine 1.50 H, Estimated Creat Clear 47, Estimated GFR 36 L, Est GFR ( Amer) 44 L, Glucose 229 H, Calcium 9.1, Total Bilirubin 0.6, AST 37 H, ALT 29, Alkaline Phosphatase 85, Troponin I 0.04 H, Total Protein 7.7, Albumin 4.4, Globulin 3.3 H, Albumin/Globulin Ratio 1.3 02/18/25 16:01: Urine Color Yellow, Urine Appearance Clear, Urine pH 5.5, Ur Specific [place] 1.020, Urine Protein 3+ A, Urine Glucose (UA) 1+, Urine Ketones Negative, Urine Blood Trace-i, Urine Nitrate Negative, Urine Bilirubin Negative, Urine Urobilinogen 0.2, Ur Leukocyte Esterase Trace, Urine RBC Occasional, Urine WBC 5-10, Ur Squamous Epith Cells 5-10, Urine Bacteria 2+ 02/18/25 17:57: Troponin I 0.04 H 02/18/25 14:46 02/18/25 14:46 Orders (Tests/Meds): ED MEDICATIONS Discontinued Medications Generic Name Dose Route Start Last Admin Trade Name Freq PRN Reason Stop Dose Admin Acetaminophen 1,000 mg 02/18/25 16:59 02/18/25 17:20 Acetaminophen 500mg Tab PO 02/18/25 17:00 1,000 mg ONCE ONE Administration Diphenhydramine HCl 25 mg 02/18/25 16:59 02/18/25 17:22 Diphenhydramine 50mg/Ml Vial IV 02/18/25 17:00 25 mg ONCE ONE Administration Sodium Chloride 1,000 mls @ 999 mls/hr 02/18/25 16:59 02/18/25 17:20 Sod Chlor 0.9% 1000ml Bag IV 02/18/25 17:59 999 mls/hr .Q1H1M ONE Administration Ketorolac Tromethamine 30 mg 02/18/25 17:42 02/18/25 17:54 Ketorolac 30mg/Ml Vial IV 02/18/25 17:43 30 mg ONCE ONE Administration Prochlorperazine Edisylate 5 mg 02/18/25 16:59 02/18/25 17:24 Prochlorperazine 10mg/2ml Vial IV 02/18/25 17:00 5 mg ONCE ONE Administration ORDERS Category Date Time Status CT head/brain wo con Stat Cat Scan 02/18/25 16:59 Completed CBC w/Auto Diff [Complete Blood Count Auto Diff] Stat Lab 02/18/25 14:46 Completed CMP [Comprehensive Metabolic Panel] Stat Lab 02/18/25 14:46 Completed Trop I [Troponin I] Stat Lab 02/18/25 14:46 Completed Troponin I Q3H Lab 02/18/25 17:57 Completed Troponin I Q3H Lab 02/18/25 23:00 Ordered UA [Urinalysis and Microscopic] Stat Lab 02/18/25 16:01 Completed Urine Culture Stat Micro 02/18/25 16:01 Received Medical Decision Narrative: Patient is a 54-year-old presenting today with significant hypertension and decreased urine output concerning for possible endorgan damage or hypertensive emergency. Patient has no signs or symptoms of ischemia or any other endorgan damage. She had a similar presentation earlier this year where she had a creatinine that peaked ultimately at 5.2 but at that time had chest pain shortness of breath and had a left heart cath. Will recheck labs and also get a urinalysis to evaluate for possible urinary tract infection as she describes some urinary urgency and decreased urine output and an infection certainly could present this way. Care will be transitioned to Dr. Elias at 3 PM. <Mahi Elias, DO - Last Filed: 02/18/25 19:00> Vital Signs: 02/18/25 14:45 02/18/25 15:01 02/18/25 15:30 Temperature 98.3 F Temperature Source Oral Pulse Rate 90 89 Pulse Rate [Left] 95 H Respiratory Rate 14 Blood Pressure 197/105 H 191/125 H Blood Pressure [Right Arm] 225/134 H Blood Pressure Mean Blood Pressure Mean [Right Arm] 164 Blood Pressure Source [Right Arm] Automatic Cuff Blood Pressure Position [Right Arm] Sitting 02 Sat by Pulse Oximetry 99 97 97 Oxygen Delivery Method Room Air 02/18/25 17:15 02/18/25 17:30 02/18/25 18:12 Temperature Temperature Source Pulse Rate 88 89 97 H Pulse Rate [Left] Respiratory Rate Blood Pressure 215/127 H 179/141 H Blood Pressure [Right Arm] Blood Pressure Mean Blood Pressure Mean [Right Arm] Blood Pressure Source [Right Arm] Blood Pressure Position [Right Arm] 02 Sat by Pulse Oximetry 97 95 98 Oxygen Delivery Method 02/18/25 18:13 Temperature Temperature Source Pulse Rate 92 H Pulse Rate [Left] Respiratory Rate Blood Pressure 191/109 H Blood Pressure [Right Arm] Blood Pressure Mean 136 Blood Pressure Mean [Right Arm] Blood Pressure Source [Right Arm] Blood Pressure Position [Right Arm] 02 Sat by Pulse Oximetry 98 Oxygen Delivery Method Lab Data Lab results reviewed: Yes I reviewed the patient's lab results. Lab Results 02/18/25 14:46: WBC 7.6, RBC 5.10, Hgb 14.8, Hct 42.2, MCV 82.7, MCH 29.0, MCHC 35.1, RDW 13.1, Plt Count 257, MPV 9.8, Neut % (Auto) 66.4, Lymph % (Auto) 26.1, [place] % (Auto) 4.7, Eos % (Auto) 2.0, Baso % (Auto) 0.7, Neut # (Auto) 5.0, Lymph # (Auto) 2.0, [place] # (Auto) 0.4, Eos # (Auto) 0.2, Baso # (Auto) 0.1, Sodium 139, Potassium 3.4 L, Chloride 99, Carbon Dioxide 27, Anion Gap 16.4 H, BUN 20 H, Creatinine 1.50 H, Estimated Creat Clear 47, Estimated GFR 36 L, Est GFR ( Amer) 44 L, Glucose 229 H, Calcium 9.1, Total Bilirubin 0.6, AST 37 H, ALT 29, Alkaline Phosphatase 85, Troponin I 0.04 H, Total Protein 7.7, Albumin 4.4, Globulin 3.3 H, Albumin/Globulin Ratio 1.3 02/18/25 16:01: Urine Color Yellow, Urine Appearance Clear, Urine pH 5.5, Ur Specific [place] 1.020, Urine Protein 3+ A, Urine Glucose (UA) 1+, Urine Ketones Negative, Urine Blood Trace-i, Urine Nitrate Negative, Urine Bilirubin Negative, Urine Urobilinogen 0.2, Ur Leukocyte Esterase Trace, Urine RBC Occasional, Urine WBC 5-10, Ur Squamous Epith Cells 5-10, Urine Bacteria 2+ 02/18/25 17:57: Troponin I 0.04 H Orders (Tests/Meds): ED MEDICATIONS Discontinued Medications Generic Name Dose Route Start Last Admin Trade Name Freq PRN Reason Stop Dose Admin Acetaminophen 1,000 mg 02/18/25 16:59 02/18/25 17:20 Acetaminophen 500mg Tab PO 02/18/25 17:00 1,000 mg ONCE ONE Administration Diphenhydramine HCl 25 mg 02/18/25 16:59 02/18/25 17:22 Diphenhydramine 50mg/Ml Vial IV 02/18/25 17:00 25 mg ONCE ONE Administration Sodium Chloride 1,000 mls @ 999 mls/hr 02/18/25 16:59 02/18/25 17:20 Sod Chlor 0.9% 1000ml Bag IV 02/18/25 17:59 999 mls/hr .Q1H1M ONE Administration Ketorolac Tromethamine 30 mg 02/18/25 17:42 02/18/25 17:54 Ketorolac 30mg/Ml Vial IV 02/18/25 17:43 30 mg ONCE ONE Administration Prochlorperazine Edisylate 5 mg 02/18/25 16:59 02/18/25 17:24 Prochlorperazine 10mg/2ml Vial IV 02/18/25 17:00 5 mg ONCE ONE Administration ORDERS Category Date Time Status CT head/brain wo con Stat Cat Scan 02/18/25 16:59 Completed CBC w/Auto Diff [Complete Blood Count Auto Diff] Stat Lab 02/18/25 14:46 Completed CMP [Comprehensive Metabolic Panel] Stat Lab 02/18/25 14:46 Completed Trop I [Troponin I] Stat Lab 02/18/25 14:46 Completed Troponin I Q3H Lab 02/18/25 17:57 Completed Troponin I Q3H Lab 02/18/25 23:00 Ordered UA [Urinalysis and Microscopic] Stat Lab 02/18/25 16:01 Completed Urine Culture Stat Micro 02/18/25 16:01 Received Medical Decision Narrative: Patient is a 54-year-old presenting today with significant hypertension and decreased urine output concerning for possible endorgan damage or hypertensive emergency. Patient has no signs or symptoms of ischemia or any other endorgan damage. She had a similar presentation earlier this year where she had a creatinine that peaked ultimately at 5.2 but at that time had chest pain shortness of breath and had a left heart cath. Will recheck labs and also get a urinalysis to evaluate for possible urinary tract infection as she describes some urinary urgency and decreased urine output and an infection certainly could present this way. Care will be transitioned to Dr. Elias at 3 PM. Mahi Elias, DO I assumed care of the patient at 1500 Patient CBC showed no leukocytosis, hemoglobin was stable. CMP was unremarkable, creatinine was at patient's baseline. UA showed no evidence of infection. On reevaluation, patient stated that she was having a severe headache that was gradual in onset over the last couple days. Patient stated that her headache was a 50 out of 10. Patient states that she had not taken any medications at home for her headache. Patient also reporting dull chest pain. Patient states that she does not have a history of high blood pressure, does not take any antihypertensive medications. Given the above change from the initial complaint, CT head was ordered given that patient was hypertensive, troponin was added as well as EKG and patient was ordered a migraine cocktail. CT head was reviewed and interpreted by myself and showed no acute intracranial process or hemorrhage. Initial troponin was 0.04, repeat troponin was 0.04. EKG was reviewed and interpreted by myself and showed normal sinus rhythm without acute ST or T wave changes concerning for ischemia. On repeat evaluation, patient's chest pain had resolved, no change in troponin from initial. Patient's headache was completely resolved. At this time I felt the patient was appropriate for discharge home. Patient was recommended to take her blood pressure daily at home for further evaluation and if continued to be elevated she need to follow-up with her primary care provider for a possible antihypertensive. Patient is otherwise discharged home in stable condition. Critical Care <Jaz Urbano MD - Last Filed: 02/18/25 14:59> Critical Care Time Critical Care Time: No
[2025-02-18 14:58] LABS: Hematocrit 42.2 % (37.0-47.0); Hemoglobin 14.8 g/dL (12.2-16.2); Immature Granulocytes % 0.1 %; Mean Corpuscular HGB Conc 35.1 g/dL (31.8-35.4); Mean Corpuscular Hemoglobin 29.0 pg (27.0-31.2); Mean Corpuscular Volume 82.7 fl (81-99); Nucleated Red Blood Cells % 0 %; Platelet Count 257 K/mm3 (142-424); Red Blood Count 5.10 M/mm3 (4.20-5.40); Red Cell Distribution Width-SD 39.3 fL; White Blood Count 7.6 K/mm3 (4.8-10.8)
[2025-02-18 15:04] LABS: Alanine Aminotransferase 29 U/L (12-78); Albumin Level 4.4 g/dl (3.5-5.0); Albumin/Globulin Ratio 1.3 (1.1-1.8); Alkaline Phosphatase 85 U/L (38-126); Anion Gap 16.4 mEq/L (5-15); Aspartate Amino Transferase 37 U/L (14-36); Bilirubin,Total 0.6 mg/dl (0.2-1.3); Blood Urea Nitrogen 20 mg/dl (7-17); Calcium 9.1 mg/dl (8.4-10.2); Carbon Dioxide 27 mmol/L (22.0-30.0); Chloride 99 mmol/L (98-107); Creatinine Clearance Estimated 47 mL/min (50-200); Creatinine,Serum 1.50 mg/dl (0.52-1.04); Estimated Glomerular Filt Rate 36 ml/min (>60); GFR (African American) 44 ML/MIN (>60); Globulin 3.3 g/dL (1.3-3.2); Glucose 229 mg/dl (74-100); Potassium 3.4 mmoL/L (3.5-5.1); Sodium 139 mmol/L (136-145); Total Protein,Serum 7.7 g/dl (6.3-8.2)
--- NOTE | 2025-02-18 16:05 | PC.NURSE ---
pt given a warm blanket at this time
[2025-02-18 16:18] LABS: Bilirubin,Urine Negative (Negative); Color,Urine YELLOW (Yellow); Glucose,Urine (UA) 1+ (Negative); Ketones,Urine Negative (Negative); Leukocyte Esterase,Urine TRACE (Negative); Microscopic, Urine URINE MICROSCOPIC (MICROSCOPIC); PH,Urine 5.5 (5.0-8.5); Protein,Urine 3+ (Negative); Specific Gravity, Urine 1.020 (1.005-1.030); Urobilinogen,Urine 0.2 EU/dl (0.2)
[2025-02-18 16:46] LABS: RBC,Urine Occasional #/hpf (0-3)
[2025-02-18 16:47] LABS: Bacteria,Urine 2+ /lpf
--- NOTE | 2025-02-18 16:59 | CT_ITS ---
PROCEDURE INFORMATION: Exam: CT Head Without Contrast Exam date and time: 02/18/2025 5:07 PM Age: 54 years old Clinical indication: Other: Severe headache TECHNIQUE: Imaging protocol: Computed tomography of the head without contrast. Radiation optimization: All CT scans at this facility use at least one of these dose optimization techniques: automated exposure control; mA and/or kV adjustment per patient size (includes targeted exams where dose is matched to clinical indication); or iterative reconstruction. COMPARISON: CT HEAD/BRAIN WO CON 11/02/2024 6:15 PM FINDINGS: Brain: No hemorrhage. Unremarkable white matter for the patient's age. No mass effect. No evolving territorial infarct. Cerebral ventricles: The ventricles are stable in size, the posterolateral ventricles are mildly prominent, as before. Paranasal sinuses: Mild mucosal thickening along the posterior wall of the right sphenoid sinus. Mastoid air cells: Visualized mastoid air cells are well aerated. Nasal cavity: The cartilaginous nasal septum is partially absent, as before. Bones: Unremarkable. No acute fracture. Soft tissues: Unremarkable. Vasculature: Calcified atherosclerosis at the carotid siphons. IMPRESSION: No acute intracranial abnormality seen.
--- NOTE | 2025-02-18 17:00 | PC.NURSE ---
MD informed that an initial trop wasnt ordered. MD placed order at this time on initial labs that were sent. Lab called and notified at this time
--- NOTE | 2025-02-18 17:14 | PC.NURSE ---
rounded on pt at this time. pt denies any complaints but is tearful. when asked she stated that she was just stressed and that her children didnt care that she was in the ER. no needs reported. pt given tissues
[2025-02-18] MEDS: ACETAMINOPHEN 500MG TAB 1000 MG PO (17:20)
[2025-02-18] MEDS: 0.9 % SODIUM CHLORIDE 1000ML 1,000 ML 999 ML IV (17:20)
[2025-02-18] MEDS: PROCHLORPERAZINE 10MG/2ML VIAL 5 MG IV (17:24)
[2025-02-18 17:33] LABS: Troponin I 0.04 ng/ml (0.00-0.034)
[2025-02-18] MEDS: KETOROLAC 30MG/ML VIAL 30 MG IV (17:54)
--- NOTE | 2025-02-18 18:11 | PC.NURSE ---
second trop sent at this time per MD since the first trop was ran in the inital blood that was 3 hours ago
--- NOTE | 2025-02-18 18:26 | PC.NURSE ---
rounded on pt. pt reports her headache has resolved. MD aware of HTN and stated no new orders are necessary
[2025-02-18 18:34] LABS: Troponin I 0.04 ng/ml (0.00-0.034)
== END 2025-02-18 19:25 | disposition home or self-care (01) ==
PROVIDERS: Student in an Organized Health Care Education/Training Program; Emergency Provider Student in an Organized Health Care Education/Training Program; PCP Family Medicine
DX: N39.0 Urinary tract infection, site not specified (principal); R51.9 Headache, unspecified; R34 Anuria and oliguria; I25.119 Atherosclerotic heart disease of native coronary artery with unspecified angina pectoris; E78.5 Hyperlipidemia, unspecified; I12.9 Hypertensive chronic kidney disease with stage 1 through stage 4 chronic kidney disease, or unspecified chronic kidney disease; N18.4 Chronic kidney disease, stage 4 (severe); B95.2 Enterococcus as the cause of diseases classified elsewhere
CPT/HCPCS: 70450; 80053; 81001; 84484; 85025; 87086; 87088; 87186; 93005; 96361; 96374; 96375; 99285; J0780; J1200; J1885; J7030

== ENCOUNTER 2025-02-20 15:55 | Emergency (ER) | payer OTHER, SELFPAY ==
[2025-02-20 16:01] VITALS: BP 210/125; PULSE 101; O2SAT 97
[2025-02-20 16:06] VITALS: BP 216/133; PULSE 100; O2SAT 98
[2025-02-20 16:08] VITALS: BP 216/133; PULSE 98; RESP 18; TEMP 37.1; O2SAT 98; BMI 26.9
--- NOTE | 2025-02-20 16:14 | HMH.EDGENADL ---
Discharge Plan Disposition Patient Disposition: Home, Self-Care Prescriptions Prescriptions: No Action tamsulosin [Flomax] 0.4 mg capsule 0.4 mg PO DAILY 30 Days Qty: 30 0RF estradiol [Estrace] 0.01 % (0.1 mg/gram) cream 1 appful vaginal DAILY Qty: 42.5 2RF Rx Instructions: Finger technique daily x 14 and then 3 times weekly. furosemide 20 mg tablet 20 mg PO Patient Comments: TAKE ONE TABLET BY MOUTH EVERY DAY (DME) Dexcom G7 [employer] Misc See Rx Instructions .Route Qty: 1 6RF Rx Instructions: As directed (DME) lancets [FreeStyle Lancets] 28 gauge misc See Rx Instructions .ROUTE .MEDSUPPLY Qty: 100 Rx Instructions: As directed clopidogrel [Plavix] 75 mg tablet 75 mg PO DAILY Qty: 90 3RF (DME) Omnipod 5 G6-G7 Intro Kt(Gen5) Cartridge See Rx Instructions .ROUTE .MEDSUPPLY Qty: 1 Rx Instructions: As directed Leqvio 284 mg/1.5 mL syringe 284 mg SQ [id number] Qty: 1.5 2RF omeprazole 20 mg capsule,delayed release(DR/EC) 20 mg PO DAILY Qty: 30 2RF Jardiance 10 mg tablet 10 mg PO DAILY Qty: 90 3RF (DME) Omnipod 5 G6-G7 Pods (Gen 5) Cartridge See Rx Instructions .Route Qty: 5 6RF Rx Instructions: As directed sertraline 50 mg tablet See Rx Instructions .ROUTE .COMPLEX Qty: 60 1RF Dose Instruction: TAKE ONE TABLET BY MOUTH EVERY DAY Rx Instructions: TAKE ONE TABLET BY MOUTH EVERY DAY rosuvastatin [Crestor] 10 mg tablet 10 mg PO DAILY Qty: 30 5RF insulin lispro [Admelog U-100 Insulin lispro] 100 unit/mL solution 1 unit SQ DAILY Qty: 10 7RF Rx Instructions: Max dose 100 units daily, to use in the OmniPod (DME) Dexcom G7 Sensor Device See Rx Instructions .ROUTE .COMPLEX Qty: 9 0RF Dose Instruction: APPLY AND WEAR 1 SENSOR FOR 10 DAYS AND THEN CHANGE Rx Instructions: APPLY AND WEAR 1 SENSOR FOR 10 DAYS AND THEN CHANGE gabapentin 600 mg tablet 600 mg PO TID Qty: 90 0RF Ozempic 0.25 mg or 0.5 mg (2 mg/3 mL) pen injector 0.25 mg SQ WEEKLY Qty: 3 0RF Rx Instructions: for 4 weeks amoxicillin-pot clavulanate 875-125 mg tablet 1 tab PO BID Qty: 14 0RF Referrals Follow up/Referrals: Lima Shannon APRN [Primary Care Provider, Family Practice] - See instructions Activity Restrictions/Add. Instructions Additional Instructions/Restrictions: Keep the wound clean by using gentle soap and water. Do not scrub the wound as this can pop the sutures loose. Pat to dry. If you develop any signs of infection to the area, such as increased redness, swelling, pus draining from the wound, fever, return to the emergency department for evaluation. The sutures will need to be removed in 10 to 14 days, which can be done at your primary care office, urgent treatment center or here in the emergency department. I do encourage you to follow-up with your primary care physician regarding your high blood pressure. If you develop any new or worsening symptoms, or if you become concerned for your help for any reason, return to the emergency department for evaluation Clinical Impressions Clinical Impression: Finger laceration Instructions Patient Instructions: DI for Laceration Repair Print Language Print Language: Kyrgyz Discharge ED Provider: Bhavin Clemente General Adult HPI General Chief complaint: Wound/Laceration Stated complaint: slit index finger L hand, shaking Time Seen by Provider: 02/20/25 16:08 Mode of Arrival: Ambulatory Source of Information: Patient Description of Symptoms (Recalled from ER Triage Doc. by RN): Reports cutting her left index finger on an ice machine. History of Present Illness HPI narrative: Janay Head is a 54-year-old female with a history of hypertension (not on any medication), hyperlipidemia, coronary artery disease, type 1 diabetes with insulin pump, stroke who presents to the emergency department for complaints of laceration to her left index finger. Patient states that prior to arrival, she was trying to clear ice out of her freezer at home and cut her finger on one of the blades. She states that she does not know when her last tetanus shot is. She cut the end of her finger only. She denies any other injuries. She has not taken any medications prior to arrival. She was noted to be hypertensive on arrival, however she states that this has been an ongoing issue for several weeks and has been evaluated by her PCP who sent her to the emergency department but has a follow-up with her PCP next week to address this issue. Related Data Home Medications ?Medication ?Instructions ?Recorded ?Confirmed lancets 28 gauge (FreeStyle #100 ea 06/03/24 02/18/25 Lancets) insulin pump cartridge,auto #1 ea 09/10/24 02/18/25 dose,BT,G6/G7 with controller subcutaneous (Omnipod 5 G6-G7 Intro Kit(Gen 5) subcutaneous cartridge and controller) furosemide 20 mg tablet 20 mg PO 02/18/25 02/18/25 Previous Rx's ?Medication ?Instructions ?Recorded 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,ham passer,cont #1 ea 06/01/24 (Dexcom G7 [employer]) clopidogrel 75 mg tablet (Plavix) 75 mg PO DAILY #90 tabs 06/03/24 empagliflozin 10 mg tablet 10 mg PO DAILY #90 tabs 07/20/24 (Jardiance) insulin pump cart,auto,BT,G6/7 #5 ea 10/16/24 (Omnipod 5 G6-G7 Pods (Gen 5) subcutaneous cartridge) sertraline 50 mg tablet See Rx Instructions .Route 11/12/24 .COMPLEX #60 tabs rosuvastatin 10 mg tablet (Crestor) 10 mg PO DAILY #30 tabs 12/08/24 inclisiran 284 mg/1.5 mL 284 mg (1.5 mL) SQ [id number] 2 12/14/24 subcutaneous syringe (Leqvio) doses #1.5 mL omeprazole 20 mg capsule,delayed 20 mg PO DAILY #30 caps 12/14/24 release estradiol 0.01% (0.1 mg/gram) 1 appful vaginal DAILY #42.5 grams 12/21/24 vaginal cream (Estrace) tamsulosin 0.4 mg capsule (Flomax) 0.4 mg PO DAILY 30 days #30 caps 12/21/24 insulin lispro 100 unit/mL 1 unit (0.01 mL) SQ DAILY #10 mL 12/23/24 subcutaneous solution (Admelog U-100 Insulin lispro) 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 sensor (Dexcom G7 #9 ea 12/25/24 Sensor device) gabapentin 600 mg tablet 600 mg PO TID #90 tabs 02/12/25 semaglutide 0.25 mg or 0.5 mg (2 0.25 mg (0.368 mL) SQ WEEKLY #3 mL 02/12/25 mg/3 mL) subcutaneous pen injector (Ozempic) amoxicillin 875 mg-potassium 1 tab PO BID #14 tabs 02/20/25 clavulanate 125 mg tablet Allergies Allergy/AdvReac Type Severity Reaction Status Date / Time atorvastatin Allergy Severe lowers Verified 02/18/25 13:24 blood pressure aspirin (ASPIRIN) Allergy Intermediate I-HIVES Verified 02/18/25 13:24 latex (LATEX) Allergy Unknown RASH, HIVES Verified 02/18/25 13:24 midodrine AdvReac Severe Unknown Verified 02/18/25 13:24 allergy reaction PFSH PFS Disclaimer: The information contained in this section may have been updated after the patient was seen, as this information can be updated by other users. 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 CKD (chronic kidney disease) stage 4, GFR 15-29 ml/min Breast cancer screening Colon cancer screening Diabetic peripheral neuropathy Kidney insufficiency HLD (hyperlipidemia) HTN (hypertension) WARREN (dyspnea on exertion) CAD (coronary artery disease) PTSD (post-traumatic stress disorder) History of type 1 diabetes mellitus Gastroparesis diabeticorum History of gastroesophageal reflux (GERD) History of stroke Cholecystectomy planned Hypotension Angina pectoris Surgical History History of heart surgery Hx of appendectomy Social History Smoking Status: Never smoker alcohol intake: never substance use type: denies use current occupational status: unemployed Travel in the last 8 weeks?: None Have you lived/traveled outside [place] in past 30 days?: No Contact w/someone who lives/traveled outside [place] past 30 days?: No Exposure to someone with infectious disease in past 14 days?: No Do you have a fever (greater than 100.4 F or 38 C)?: No Have you tested positive for COVID-19?: No Exposed to someone with COVID-19 in past 14 days?: No Do you have a sore throat?: No Do you have a cough?: No Do you have any weakness?: No Do you have any diarrhea?: No Are you experiencing any unusual bleeding?: No Do you have any muscle aches/pain?: No Do you have any abdominal pain?: No Are you experiencing loss of taste or smell?: No Other 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 Have you received the Flu Vaccine for this season: No Have you received the Pneumonia Vaccine: No ROS Obtained: Yes Systems reviewed as appropriate & no additional complaints except as documented Physical Exam General General appearance: alert, in no apparent distress and anxious Head Head exam: atraumatic Eye Eye exam: Present normal appearance ENT ENT exam: Present normal external ear exam Neck Neck exam: Present full ROM Chest Chest inspection: Present symmetric chest wall rise Respiratory Respiratory exam: Present normal lung sounds bilaterally; Absent respiratory distress Cardiovascular Cardiovascular exam: Present regular rate and normal rhythm Abdominal Exam Abdominal exam: Present soft; Absent tenderness or guarding Extremities Exam Extremities exam: Present normal inspection Expanded Upper Extremity Exam Left: Hand L/R front image:  1. laceration Back Exam Back exam: Present normal inspection Neurological Exam Neurological exam: Present alert and oriented X3 Psychiatric Psychiatric exam: Present normal affect Skin Skin exam: Present warm and dry Medical Decision Making Medical Records Screening: Per USPSTF and CDC recommendations, given the prevalence of disease in our region, it is our hospital?s policy to screen for HIV and viral Hepatitis for all patients aged 18 and over and those with ongoing risk factors. Nick Inquiry Pt receiving controlled substance: No Vital Signs: 02/20/25 16:01 02/20/25 16:06 02/20/25 16:08 Temperature 98.8 F Temperature Source Oral Pulse Rate 101 H 100 H Pulse Rate [Radial] 98 H Respiratory Rate 18 Blood Pressure 210/125 H 216/133 H Blood Pressure [Left Arm] 216/133 H Blood Pressure Mean [Left Arm] 160 Blood Pressure Source [Left Arm] Automatic Cuff Blood Pressure Position [Left Arm] Sitting 02 Sat by Pulse Oximetry 97 98 98 Oxygen Delivery Method Room Air 02/20/25 16:30 Temperature Temperature Source Pulse Rate 91 H Pulse Rate [Radial] Respiratory Rate Blood Pressure 187/105 H Blood Pressure [Left Arm] Blood Pressure Mean [Left Arm] Blood Pressure Source [Left Arm] Blood Pressure Position [Left Arm] 02 Sat by Pulse Oximetry 97 Oxygen Delivery Method Orders (Tests/Meds): ED MEDICATIONS Discontinued Medications Generic Name Dose Route Start Last Admin Trade Name Freq PRN Reason Stop Dose Admin Acetaminophen 1,000 mg 02/20/25 16:13 02/20/25 16:41 Acetaminophen 500mg Tab PO 02/20/25 16:14 1,000 mg ONCE ONE Administration Ibuprofen 600 mg 02/20/25 16:13 02/20/25 16:41 Ibuprofen 600 Mg Tablet PO 02/20/25 16:14 600 mg ONCE ONE Administration Lidocaine HCl 20 ml 02/20/25 16:13 02/20/25 17:02 Lidocaine 1% 20ml Mdv IJ 02/20/25 16:14 20 ml ONCE ONE Administration Tetanus/Reduced Diphtheria/Acell Pertussis 0.5 ml 02/20/25 16:13 02/20/25 16:41 Tet/Diphth/Pert-Adult 0.5ml Syringe IM 02/20/25 16:14 0.5 ml .ONCE ONE Administration Medical Decision Narrative: Janay Head is a 54-year-old female with a history of hypertension (not on any medication), hyperlipidemia, coronary artery disease, type 1 diabetes with insulin pump, stroke who presents to the emergency department for complaints of laceration to her left index finger. Patient states that prior to arrival, she was trying to clear ice out of her freezer at home and cut her finger on one of the blades. She states that she does not know when her last tetanus shot is. She cut the end of her finger only. She denies any other injuries. She has not taken any medications prior to arrival. She was noted to be hypertensive on arrival, however she states that this has been an ongoing issue for several weeks and has been evaluated by her PCP who sent her to the emergency department but has a follow-up with her PCP next week to address this issue. On arrival, patient is noted to be hypertensive, but otherwise hemodynamically stable. Afebrile. Physical exam, as stated above, revealed an overall well-appearing female in no distress. She does appear anxious. She has a 4 cm elliptical shaped laceration to her left second digit on the palmar aspect of the distal phalanx. There is some mild venous oozing but no arterial bleeding. She has full range of motion in all joint spaces. Sensation intact distally. Less than twos and capillary refill. No nailbed involvement. X-ray imaging of the hand was considered, however there is low concern for retained foreign body or bony injury and x-ray imaging was deferred. Patient's wound was cleaned with sterile water and Hibiclens. Patient was consented for laceration repair with digital nerve block. Patient's wound was repaired using 4-0 nylon suture x 7 after adequate anesthesia with a digital nerve block using 1% lidocaine. See procedure notes for details. Patient was encouraged to keep the wound clean by using gentle soap and water. Return precautions were given for any signs of infection. All questions were answered. She demonstrated understanding and was in agreement this plan. She was then discharged from the emergency department in stable condition. Procedures Laceration Laceration 1: Site: finger Side (If applicable): left Size (cm): 4 Description: other (elliptical) Depth: simple, single layer Local Anesthetic: lidocaine 1% Amount of anesthesia used (mL): 6 Pre-repair: wound explored Skin layer closed with: nylon Size (cm): 4-0 Number of sutures: 7 Technique: simple, interrupted Nerve Block Nerve Block 1: Time out performed: Yes Local Anesthetic: lidocaine 1% Amount of anesthesia used (mL): 6 Side: Left Nerve Blocks: digital Procedure Successful: Yes Patient Tolerated Procedure: well Complications: none Critical Care Critical Care Time Critical Care Time: No
[2025-02-20 16:30] VITALS: BP 187/105; PULSE 91; O2SAT 97
[2025-02-20] MEDS: TET/DIPHTH/PERT-ADULT 0.5ML SYRINGE 0.5 ML IM (16:41)
[2025-02-20] MEDS: IBUPROFEN 600 MG TABLET PO (16:41)
[2025-02-20] MEDS: ACETAMINOPHEN 500MG TAB 1000 MG PO (16:41)
[2025-02-20] MEDS: LIDOCAINE 1% 20ML MDV 20 ML IJ (17:02)
[2025-02-20 17:33] VITALS: BP 135/70; PULSE 80; RESP 20; TEMP 36.6; O2SAT 98
== END 2025-02-20 17:34 | disposition home or self-care (01) ==
PROVIDERS: Emergency Provider Student in an Organized Health Care Education/Training Program; PCP Family Medicine
DX: S61.211A Laceration without foreign body of left index finger without damage to nail, initial encounter (principal); E10.22 Type 1 diabetes mellitus with diabetic chronic kidney disease; N18.4 Chronic kidney disease, stage 4 (severe); I12.9 Hypertensive chronic kidney disease with stage 1 through stage 4 chronic kidney disease, or unspecified chronic kidney disease; W26.8XXA Contact with other sharp object(s), not elsewhere classified, initial encounter
CPT/HCPCS: 12002; 90471; 90715; 99283; 99284; J2003

== ENCOUNTER 2025-02-24 12:38 | Emergency (ER) | payer OTHER, SELFPAY ==
[2025-02-24 12:43] VITALS: BP 175/103; PULSE 100; RESP 18; TEMP 36.6; O2SAT 97; BMI 27.1
--- NOTE | 2025-02-24 13:04 | ED_ITS ---
<Statement entered by Bhavin Clemente MD - 02/24/25 17:45> I was consulted by the VALENCIA, and we discussed the complexity of the problems being addressed. I approve the treatment and management plan for this patient's care in the emergency department, thus performing a substantive portion of the medical decision making. Bhavin Clemente MD Discharge Plan Disposition Patient Disposition: Home, Self-Care Condition: Good Prescriptions Prescriptions: New ondansetron 4 mg tablet,disintegrating 4 mg PO Q8H PRN (Reason: nausea and vomiting) 3 Days Qty: 7 0RF No Action tamsulosin [Flomax] 0.4 mg capsule 0.4 mg PO DAILY 30 Days Qty: 30 0RF estradiol [Estrace] 0.01 % (0.1 mg/gram) cream 1 appful vaginal DAILY Qty: 42.5 2RF Rx Instructions: Finger technique daily x 14 and then 3 times weekly. furosemide 20 mg tablet 20 mg PO Patient Comments: TAKE ONE TABLET BY MOUTH EVERY DAY (DME) Dexcom G7 [employer] M113 Misc See Rx Instructions .Route Qty: 1 6RF Rx Instructions: As directed (DME) lancets [FreeStyle Lancets] 28 gauge misc See Rx Instructions .ROUTE .MEDSUPPLY Qty: 100 Rx Instructions: As directed clopidogrel [Plavix] 75 mg tablet 75 mg PO DAILY Qty: 90 3RF (DME) Omnipod 5 G6-G7 Intro Kt(Gen5) Cartridge See Rx Instructions .ROUTE .MEDSUPPLY Qty: 1 Rx Instructions: As directed Leqvio 284 mg/1.5 mL syringe 284 mg SQ [id number] Qty: 1.5 2RF omeprazole 20 mg capsule,delayed release(DR/EC) 20 mg PO DAILY Qty: 30 2RF Jardiance 10 mg tablet 10 mg PO DAILY Qty: 90 3RF (DME) Omnipod 5 G6-G7 Pods (Gen 5) Cartridge See Rx Instructions .Route Qty: 5 6RF Rx Instructions: As directed sertraline 50 mg tablet See Rx Instructions .ROUTE .COMPLEX Qty: 60 1RF Dose Instruction: TAKE ONE TABLET BY MOUTH EVERY DAY Rx Instructions: TAKE ONE TABLET BY MOUTH EVERY DAY rosuvastatin [Crestor] 10 mg tablet 10 mg PO DAILY Qty: 30 5RF insulin lispro [Admelog U-100 Insulin lispro] 100 unit/mL solution 1 unit SQ DAILY Qty: 10 7RF Rx Instructions: Max dose 100 units daily, to use in the OmniPod (DME) Dexcom G7 Sensor Device See Rx Instructions .ROUTE .COMPLEX Qty: 9 0RF Dose Instruction: APPLY AND WEAR 1 SENSOR FOR 10 DAYS AND THEN CHANGE Rx Instructions: APPLY AND WEAR 1 SENSOR FOR 10 DAYS AND THEN CHANGE gabapentin 600 mg tablet 600 mg PO TID Qty: 90 0RF Ozempic 0.25 mg or 0.5 mg (2 mg/3 mL) pen injector 0.25 mg SQ WEEKLY Qty: 3 0RF Rx Instructions: for 4 weeks oxycodone 5 mg tablet 2.5 mg PO DAILY PRN (Reason: pain) Qty: 3 0RF amoxicillin-pot clavulanate 875-125 mg tablet 1 tab PO BID Qty: 14 0RF Referrals Follow up/Referrals: Wei Barton DO [Primary Care Provider, Family Practice] - See instructions Activity Restrictions/Add. Instructions Additional Instructions/Restrictions: Monitor temperature. Seek treatment if fever develops. Follow-up immediately if new or worse symptoms worsen or no noticeable improvement over 48 hours. Increase fluids such as water, Gatorade, Powerade, juice or Pedialyte with limited formula/dietary in children No food is okay as long as you are drinking. Once ready to eat start bland such as bananas, rice, applesauce, toast. Follow-up immediately for new or worsening symptoms or no noticeable improvement over the next 48 hours. Clinical Impressions Clinical Impression: Nausea & vomiting Qualifiers: Vomiting type: unspecified Qualified Code(s): R11.2 - Nausea with vomiting, unspecified Instructions Patient Instructions: DI for Nausea in Adults, DI for Vomiting in Adults, Nausea and Vomiting in Adults Print Language Print Language: Martiniquais Discharge ED Provider: Bhavin Clemente Adult HPI General Chief complaint: Nausea/Vomiting/Diarrhea Stated complaint: vomiting for 3 days Time Seen by Provider: 02/24/25 12:56 Mode of Arrival: Ambulatory Source of Information: Patient Description of Symptoms (Recalled from ER Triage Doc. by RN): Pt presents for evaluation of vomiting x 3 days. Denies diarrhea History of Present Illness HPI narrative: 54-year-old female presents for nausea and vomiting for 3 days. Patient states she has stage IV kidney failure. History of diabetes uses OmniPod insulin pump but does not have it on at this time. Patient states she is unable to keep anything down. Has not taken anything for nausea or vomiting today Related Data Home Medications ?Medication ?Instructions ?Recorded ?Confirmed lancets 28 gauge (FreeStyle #100 ea 06/03/24 02/22/25 Lancets) insulin pump cartridge,auto #1 ea 09/10/24 02/22/25 dose,BT,G6/G7 with controller subcutaneous (Omnipod 5 G6-G7 Intro Kit(Gen 5) subcutaneous cartridge and controller) furosemide 20 mg tablet 20 mg PO 02/18/25 02/22/25 Previous Rx's ?Medication ?Instructions ?Recorded 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,jackaroo,cont #1 ea 06/01/24 (Dexcom G7 [employer] M113) clopidogrel 75 mg tablet (Plavix) 75 mg PO DAILY #90 t abs 06/03/24 empagliflozin 10 mg tablet 10 mg PO DAILY #90 tabs (Jardiance) insulin pump cart,auto,BT,G6/7 #5 ea 10/16/24 (Omnipod 5 G6-G7 Pods (Gen 5) subcutaneous cartridge) sertraline 50 mg tablet See Rx Instructions .Route 0 11/12/24 .COMPLEX #60 tabs rosuvastatin 10 mg tablet (Crestor) 10 mg PO DAILY #30 tabs 12/08/24 inclisiran 284 mg/1.5 mL 284 mg (1.5 mL) SQ [id number] 2 12/14/24 subcutaneous syringe (Leqvio) doses #1.5 mL omeprazole 20 mg capsule,delayed 20 mg PO DAILY #30 ca ps 12/14/24 release estradiol 0.01% (0.1 mg/gram) 1 appful vaginal DAILY # 42.5 grams 12/21/24 vaginal cream (Estrace) tamsulosin 0.4 mg capsule (Flomax) 0.4 mg PO DAILY 30 days #30 caps 12/21/24 insulin lispro 100 unit/mL 1 unit (0.01 mL) SQ DAILY # 10 mL 12/23/24 subcutaneous solution (Admelog U-100 Insulin lispro) 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 sensor (Dexcom G7 #9 ea 12/25/24 Sensor device) gabapentin 600 mg tablet 600 mg PO TID #90 tabs 02/12 semaglutide 0.25 mg or 0.5 mg (2 0.25 mg (0.368 mL) SQ WEEKLY #3 mL 02/12/25 mg/3 mL) subcutaneous pen injector (Ozempic) amoxicillin 875 mg-potassium 1 tab PO BID #14 tabs clavulanate 125 mg tablet oxycodone 5 mg tablet 2.5 mg (1/2 x 5 mg) PO DAILY PRN 02/22/25 pain #3 tabs ondansetron 4 mg disintegrating 4 mg PO Q8H PRN nausea and 02/24/25 tablet vomiting 3 days #7 tabs Allergies Allergy/AdvReac Type Severity Reaction Status Date / Time atorvastatin Allergy Severe lowers Verified 02/22/25 10:57 blood pressure aspirin (ASPIRIN) Allergy Intermediate I-HIVES Verified 02/22/25 10:57 latex (LATEX) Allergy Unknown RASH, HIVES Verified 02/22/25 10:57 midodrine AdvReac Severe Unknown Verified 02/22/25 10:57 allergy reaction PFSH PFS Disclaimer: The information contained in this section may have been updated after the patient was seen, as this information can be updated by other users. 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) History of heart surgery Hx of appendectomy Social History , 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) Smoking Status: Never smoker alcohol intake: never substance use type: denies use current occupational status: unemployed Travel in the last 8 weeks?: None Have you lived/traveled outside US in past 30 days?: No Contact w/someone who lives/traveled outside US past 30 days?: No Exposure to someone with infectious disease in past 14 days?: No Do you have a fever (greater than 100.4 F or 38 C)?: No Have you tested positive for COVID-19?: No Exposed to someone with COVID-19 in past 14 days?: No Do you have a sore throat?: No Do you have a cough?: No Do you have any weakness?: No Do you have any diarrhea?: No Are you experiencing any unusual bleeding?: No Do you have any muscle aches/pain?: No Do you have any abdominal pain?: No Are you experiencing loss of taste or smell?: No Other 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 Have you received the Flu Vaccine for this season: No Have you received the Pneumonia Vaccine: No ROS Obtained: Yes Systems reviewed as appropriate & no additional complaints except as documented Constitutional Constitutional: Reports system reviewed and no additional complaints, except as documented and Reports as per HPI Gastrointestinal Gastrointestingal: Reports system reviewed and no additional complaints, except as documented, as per HPI, nausea and vomiting Physical Exam General General appearance: alert and in no apparent distress Eye Eye exam: Present normal appearance and PERRL Respiratory Respiratory exam: Present normal lung sounds bilaterally Cardiovascular Cardiovascular exam: Present regular rate and normal rhythm Abdominal Exam Abdominal exam: Present soft and tenderness Neurological Exam Neurological exam: Present alert and oriented X3 Skin Skin exam: Present warm and intact Medical Decision Making Medical Records Medical records reviewed: Yes I reviewed the patient's medical records. Screening: Per USPSTF and CDC recommendations, given the prevalence of disease in our region, it is our hospital?s policy to screen for HIV and viral Hepatitis for all patients aged 18 and over and those with ongoing risk factors. Nick Inquiry Pt receiving controlled substance: No Nick was queried for this patient: No Vital Signs: 02/24/25 12:43 02/24/25 13:32 02/24/25 14:30 Temperature 98 F Temperature Source Oral Pulse Rate 95 H 95 H Pulse Rate [Right] 100 H Respiratory Rate 18 Blood Pressure 175/115 H 203/116 H Blood Pressure [Right Arm] 175/103 H Blood Pressure Mean 134 Blood Pressure Mean [Right Arm] 127 Blood Pressure Source [Right Arm] Automatic Cuff Blood Pressure Position [Right Arm] Sitting 02 Sat by Pulse Oximetry 97 96 97 Oxygen Delivery Method Room Air 02/24/25 15:30 02/24/25 16:00 Temperature Temperature Source Pulse Rate 98 H 94 H Pulse Rate [Right] Respiratory Rate Blood Pressure 208/130 H 190/102 H Blood Pressure [Right Arm] Blood Pressure Mean 156 148 Blood Pressure Mean [Right Arm] Blood Pressure Source [Right Arm] Blood Pressure Position [Right Arm] 02 Sat by Pulse Oximetry 98 94 L Oxygen Delivery Method Lab Data Lab results reviewed: Yes I reviewed the patient's lab results. Lab Results 02/24/25 13:00: Urine Color Yellow, Urine Appearance Sl cloudy, Urine pH 7.5, Ur Specific [place] 1.020, Urine Protein 3+ A, Urine Glucose (UA) 1+, Urine Ketones Trace, Urine Blood Trace-i, Urine Nitrate Negative, Urine Bilirubin Negative, Urine Urobilinogen 1.0, Ur Leukocyte Esterase Negative, Urine RBC Occasional, Urine WBC 3-5, Ur Squamous Epith Cells 10-20, Urine Bacteria Trace 02/24/25 13:09: VBG pH 7.43 H, VBG pCO2 45.3, VBG pO2 80.1 H, VBG HCO3 29.1, VBG Total CO2 30.4 H, VBG O2 Saturation 95.7 H, VBG Base Excess 4.7 H, VBG Lactic Acid 2.6 H 02/24/25 13:15: WBC 7.3, RBC 5.42 H, Hgb 15.4, Hct 45.6, MCV 84.1, MCH 28.4, MCHC 33.8, RDW 13.4, Plt Count 263, MPV 9.9, Neut % (Auto) 75.7, Lymph % (Auto) 17.3, Simpson % (Auto) 5.7, Eos % (Auto) 0.7, Baso % (Auto) 0.5, Neut # (Auto) 5.6, Lymph # (Auto) 1.3, Simpson # (Auto) 0.4, Eos # (Auto) 0.1, Baso # (Auto) 0.0, Sodium 139, Potassium 4.2, Chloride 98, Carbon Dioxide 30, Anion Gap 15.2 H, BUN 23 H, Creatinine 1.50 H, Estimated Creat Clear 46, Estimated GFR 36 L, Est GFR ( Amer) 44 L, Glucose 311 H, Calcium 9.3, Total Bilirubin 1.0, AST 51 H, ALT 26, Alkaline Phosphatase 97, Total Protein 7.1, Albumin 4.2, Globulin 2.9, Albumin/Globulin Ratio 1.4 02/24/25 14:20: Acetone Level Small 02/24/25 13:15 02/24/25 13:15 Orders (Tests/Meds): ED MEDICATIONS Discontinued Medications Generic Name Dose Route Start Last Admin Trade Name Freq PRN Reason Stop Dose Admin Droperidol 2.5 mg 02/24/25 14:52 02/24/25 14:55 Droperidol 5mg/2ml Vial IV 02/24/25 14:53 2.5 mg ONCE ONE Administration Sodium Chloride 1,000 mls @ 999 mls/hr 02/24/25 13:00 02/24/25 15:00 Sod Chlor 0.9% 1000ml Bag IV 02/24/25 14:00 Infused .Q1H1M ONE Infusion Iopamidol 75 ml 02/24/25 14:59 02/24/25 15:02 Iopamidol-370 (76%);100ml Bottle IV 02/24/25 15:00 75 ml ONCE ONE Administration Ondansetron HCl 4 mg 02/24/25 13:00 02/24/25 13:30 Ondansetron 4mg/2ml Vial IV 02/24/25 13:01 4 mg ONCE ONE Administration Sodium Chloride 10 ml 02/24/25 14:59 02/24/25 15:02 Sodium Chloride 0.9% 10ml Syr (Rad Only) IV 02/24/25 15:00 10 ml ONCE ONE Administration ORDERS Category Date Time Status CT abdomen pelvis w con Stat Cat Scan 02/24/25 14:32 Completed Acetone, Serum (Rapid) Stat Lab 02/24/25 14:20 Completed CBC w/Auto Diff [Complete Blood Count Auto Diff] Stat Lab 02/24/25 13:15 Completed CMP [Comprehensive Metabolic Panel] Stat Lab 02/24/25 13:15 Completed Urinalysis and Microscopic Stat Lab 02/24/25 13:00 Completed Venous Blood Gas Stat RT 02/24/25 13:09 Completed Medical Decision Narrative: In summary patient is a 54-year-old female who presents to the emergency department for evaluation of abdominal pain, nausea and vomiting x 3 days, was told to come to the ER by his PCP to rule out kidney failure. Patient is hemodynamically stable upon arrival, afebrile. Abdominal tenderness on exam. Differential diagnosis includes DKA, colitis, viral illness, small bowel obstruction, urinary tract infection. Initial workup will be conducted with labs, urine, CT abdomen pelvis. Initial inventions include Zofran, IV fluids, droperidol. Initial workup reviewed by me CMP-baseline kidney function, CT shows diminished enhancement involving the left mid kidney-patient has no focal pain or left flank pain to rule in ischemia, urinalysis unremarkable, polynephritis ruled out. Upon repeat evaluation patient sleeping, when awakened patient states the nausea and vomiting has greatly improved and requested something to drink. Patient was given a diet Pepsi and she tolerated it well. Patient states she feels she can manage it at home now and would like to be discharged. Given this patient appropriate for discharge at this time will discharge home with prescription of Zofran and follow-up with PCP Critical Care Critical Care Time Critical Care Time: No
[2025-02-24 13:08] LABS: Microscopic, Urine URINE MICROSCOPIC (MICROSCOPIC)
[2025-02-24 13:15] LABS: Color,Urine YELLOW (Yellow); Glucose,Urine (UA) 1+ (Negative); Ketones,Urine TRACE (Negative); Leukocyte Esterase,Urine Negative (Negative); PH,Urine 7.5 (5.0-8.5); Protein,Urine 3+ (Negative); Specific Gravity, Urine 1.020 (1.005-1.030); Urobilinogen,Urine 1.0 EU/dl (0.2)
[2025-02-24 13:21] LABS: Bilirubin,Urine Negative (Negative)
[2025-02-24 13:27] LABS: Hematocrit 45.6 % (37.0-47.0); Hemoglobin 15.4 g/dL (12.2-16.2); Immature Granulocytes % 0.1 %; Mean Corpuscular HGB Conc 33.8 g/dL (31.8-35.4); Mean Corpuscular Hemoglobin 28.4 pg (27.0-31.2); Mean Corpuscular Volume 84.1 fl (81-99); Nucleated Red Blood Cells % 0 %; Platelet Count 263 K/mm3 (142-424); Red Blood Count 5.42 M/mm3 (4.20-5.40); Red Cell Distribution Width-SD 41.5 fL; White Blood Count 7.3 K/mm3 (4.8-10.8)
[2025-02-24] MEDS: 0.9 % SODIUM CHLORIDE 1000ML 1,000 ML 999 ML IV (13:29)
[2025-02-24] MEDS: ONDANSETRON 4MG/2ML VIAL 4 MG IV (13:30)
[2025-02-24 13:32] VITALS: BP 175/115; PULSE 95; O2SAT 96
--- OUTSIDE RECORDS SUMMARY | 2025-02-24 13:32 | XMS_ITS | Clinical Summary ---
Author Organization [facility] Address [address] [place] [address] Care Team Providers Care Mailing Manager Name Role Phone Reji Velazquez Primary Care Provider [phone] Abhijeet Espinoza MD Unavailable [phone] Allergies Active Allergy Reactions Criticality Noted Date [...] Description 03/26/2025 10:00 AM EST Office Visit [facility] [address] [place] [id number] Noé Kinsey MD [address] [place] [id number] Health Maintenance Due Date Last Done [...] 2) 2019 [facility]-Breast Cancer Screening 01/27/2021 01/27/2019 [id number] Vaccine (1 - 20 - season) 2025 [...] femaleDate of Service: 01/27/2019 eferring Phy:Thelma ValerioAccount: [id number] Verified By: Caitlyn Frazier M.D. on 01/28/2019 [...] on Jan 28 2019 3:57P Transcribed by: [facility] on Jan 28 2019 3:57P Dictated by: CAITLYN FRAZIER M.D. on Jan 28 2019 3:57P Patient Name:Janay Ellis : 1970 Age: 48 Gender: femaleDate of Service: 01/27/2019 eferring Phy:Thelma ValerioAccount: [id number] Thelma Valerio , FINAL REPORT PROCEDURE: Tomosynthesis [...] on Jan 28 2019 3:57P Transcribed by: [facility] on Jan 28 2019 3:57P Dictated by: CAITLYN FRAZIER M.D. on Jan 28 2019 3:57P Patient Name:Janay Ellis : 1970 Age: 48 Gender: femaleDate of Service:01/27/2019 eferring Phy:Thelma ValerioAccount: [id number] Thelma Valerio , FINAL REPORT PROCEDURE: Tomosynthesis [...] Gender: femaleDate of Service:01/27/2019 eferring Phy:Thelma ValerioAccount: [id number] Verified By: Caitlyn Frazier M.D. on 01/28/2019 at 03:52:08 PM Page 2 of 2 [facility] Provider IMG BI PROCEDURES Final Resu lt * HIV 1 & 2 Antibody/Antigen Screen (10/07/2015 5:46 PM EDT) HIV 1 Result NONREACTIVE Screening for HIV 1 and 2 antibodies is NONREACTIVE. No confirmatory testing is required. SUNQUEST 10/07/2015 5:46 PM EDT 10/07/2015 6:13 PM EDT Taylor Amin MD LAB BLOOD ORDERABLES Luciana l Result SUNQUEST * Acute Hepatitis Panel [...] Recently Relevant to Health Maintenance Insurance [employer] [facility] MEDICAID Care Teams Mailing Manager Relationship Specialty Start Date End Date Reji Velazquez DO [address] [place] [id number] PCP - General 07/28/24 Abhijeet Espinoza MD [address] [place] [address] 07/28/24
--- OUTSIDE RECORDS SUMMARY | 2025-02-24 13:32 | XMS_ITS | Clinical Summary ---
Author Organization [facility] Address [address] [place] [address] Phone Care Team Providers Care Cross Tie Turner Name Role Phone Mario Walls MD Unavailable [phone] Allergies Active Allergy Reactions Criticality Noted [...] FOUR TIMES A DAY 150 Strip 09/26/19 23 Active sodium chloride 1,000 mg Misc Tablet, Soluble Take 1 Tablet by mouth 2 times daily. 60 Tablet 11 11/10/19 23 Active insulin syringe-needle U-100 0.3 mL 31 gauge x 1564 [facility] SyringeIndicatio ns:Dyslipidemia associated with type 2 diabetes mellitus (HCC) Use as directed to inject insulin. E11.65 100 Each 12/15/19 23 Active Insulin [place], Disposable, (NICOLASA PEN NEEDLE) 32 gauge x 532 [facility] NeedleIndication s:Dyslipidemia associated with type 2 diabetes mellitus (HCC) Use with insulin 4 times daily 400 Each 1 12/18/19 23 Active Blood-Glucose Meter (FREESTYLE LITE METER) [facility] KitIndications:T ype 2 diabetes mellitus with stage 3a chronic kidney disease, with long-term current use of insulin ([facility]) 1 Kit by [facility].(Non-Drug; Combo Route) route 3 times daily. 1 Kit 05/29/19 24 Active Blood Sugar Diagnostic (FREESTYLE TEST) [facility] StripIndications :Type 2 diabetes mellitus with stage 3a chronic kidney disease, with long-term current use of insulin ([facility]) 1 Strip by [facility].(Non-Drug; Combo Route) route 3 times daily. 100 Each 11 05/29/19 24 Active Lancets [facility] MiscIndications: Type 2 diabetes mellitus with stage 3a chronic kidney disease, with long-term current use of insulin ([facility]) check FSBS 3 times a day or [...] 4 07/01/19 24 Active Blood Pressure Monitor [facility] KitIndications:B lood pressure instability,Orth ostatic hypotension,Esse ntial hypertension Check and record blood pressure daily and also prn with any feelings of lightheadedness and syncope 1 Kit 07/11/19 24 Active Blood-Glucose Sensor (DEXCOM G7 SENSOR) [facility] DeviceIndication s:Dyslipidemia associated with type 2 diabetes mellitus (HCC) 1 Each by [facility].(Non-Drug; Combo Route) route every 10 days. CHNAGE [...] female 11/23/2022 Sepsis without acute organ dysfunction 3 Acute pyelonephritis 11/23/2022 Recurrent UTI 11/09/2022 Coronary artery disease invo lving blackfeet coronary artery of blackfeet heart with angina pectoris 10/02/2022 Orthostatic hypotension [...] ml/min 02/01/2022 Overview (02/01/2022): 01/30/22: Per Dr Gamaliel Wu: 1.CKD Stage III-b : Cr at present 1.30-->2.08-->1.47. GFR 49-->28-->42 ml/min. ( Underlying condition: Glomerulosclerosis ) Plan- -Checking MRI with IV [id number] further evaluate lesions seen on both kidneys. [...] to GI Healthcare maintenance 09/27/2021 Overview (09/27/2021): TAX REPRESENTATIVE: Needs to establish TAX REPRESENTATIVE care and make an appointment soon. Referral Given for [facility]. 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 Checking level Hyperuricemia 09/25/2021 History of CVA (cerebrovascular accident) 2020 Assessment & Plan (09/27/2021 8:01 PM EDT): Sees neurology. No residual deficits Coronary artery disease invo lving blackfeet coronary artery of blackfeet heart without angina pectoris 04/03/2021 Type 2 [...] Liver panel normal. GERD (gastroesophageal reflux disease) 1 Hyperglycemia due to diabetes mellitus 11/28/202 1 Assessment & Plan (09/27/2021 12:49 PM EDT): [...] 02/13/2016 N/A Surgeon: Jailyn Vieira MD; Location: [facility]; Service: Endoscopy COLONOSCOPY CARDIAC SURGERY triple bypass UPPER GASTROINTESTINAL ENDOSCOPY 05/16/2021 N/A ESOPHAGOGASTRODUODENOS COPY with biopsy and savary dilation; Surgeon: Cleveland Thomas DO; Location: ED ENDOSCOPY; Service: Endoscopy 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 Date Comments Diabetes mellitus (HCC) Renal disorder Multi-organ failure with liver failure Liver failure (HCC) reports is o n transplant list at [facility] Hepatitis B Motion sickness Pneumonia [place] (myocardial infarction) (HCC) Blood circulation, collateral Heartburn Stroke (HCC) 2019, 2019, 2020 , 2021 Post-operative nausea and vomiting extreme N/V Coronary artery disease invo lving blackfeet coronary artery of blackfeet heart without angina pectoris 04/03/2021 Hyperglycemia due [...] Date Recorded PHQ-2 Total Score 6 05/01/2023 [facility] [place] [facility] Occupat ional Health - Occupational Stress [...] 11/19/2023, Additional history exists Lipids 08/26/2025 08/26/2024, 11/03, [...] < 30 General 27.4(05/01/20 10:27 AM EST) Mariella Andrade MD Maintain a healthy diet, exercise regularly and maintain an ideal body weight General No Mariella Fowler MD HEMOGLOBIN A1C < 7.0 Result Component 8.9( 7:02 AM EST) No Mariella Fowler MD Procedures Procedure Name Priority Date/Time Associated Diagnosis Comments ALBUMIN/CREATININE RATIO, RANDOM URINE Routine 11/19/2023 COMPREHENSIVE METABOLIC PANEL Routine [...] Bates MD CHEMISTRY ORDERABLES Final Resu lt Performing Organization Address [facility]/ZIP Co de Phone Number SEP OFFICE * (ABNORMAL) MICROALBUMIN/CREATININE RATIO URINE (11/19/2023) Urine Creatinine,Ran dom 239 MG/DL SEP OFFICE Albumin, Ur 166.200(A) <=31 MG/L SEP OFFICE Microalbumin/C [...] Comment:98-107 Blood VENOUS BLOOD / Unknown 11/19/2023 us Genet Bates MD CHEMISTRY ORDERABLES Final Resu lt SEP OFFICE * [facility] COLONOSCOPY (02/14/2016 10:30 AM EDT) 02/14/2016 10:3 0 AM EDT Impressions [facility] - 02/14/2016 10:53 AM EDT [...] Vieira MD GI PROCEDURE ORDERABLES Final Result [facility] [address] [place] [address] from Last 3 Months or Most Recently Relevant to Health Maintenance Insurance [facility] [address] [facility] [address] [employer] [place] [address] Advance Directives For more information, please contact: [phone] * Full Code (Latest Code Status on [...] 4:05 PM 04/14/2021 5:40 PM Care Teams Cross Tie Turner Relationship Specialty Start Date End Date Mario Walls MD [address] [facility] [address] [place] [address] Internal Medicine-Cardiovascular Disease 06/18/23
[2025-02-24 13:34] LABS: VBG HCO3 29.1 mmol/L (23-30); VBG PCO2 45.3 mmol/L (35-51); VBG PH 7.43 mmol/L (7.31-7.41); VBG PO2 80.1 mmol/L (28-40)
[2025-02-24 13:36] LABS: Lactate Venous 2.6 mmol/L (0.4-2.0)
[2025-02-24 13:40] LABS: Bacteria,Urine Trace /lpf; RBC,Urine Occasional #/hpf (0-3)
[2025-02-24 13:40] LABS: Alanine Aminotransferase 26 U/L (12-78); Albumin Level 4.2 g/dl (3.5-5.0); Albumin/Globulin Ratio 1.4 (1.1-1.8); Alkaline Phosphatase 97 U/L (38-126); Anion Gap 15.2 mEq/L (5-15); Aspartate Amino Transferase 51 U/L (14-36); Bilirubin,Total 1.0 mg/dl (0.2-1.3); Blood Urea Nitrogen 23 mg/dl (7-17); Calcium 9.3 mg/dl (8.4-10.2); Carbon Dioxide 30 mmol/L (22.0-30.0); Chloride 98 mmol/L (98-107); Creatinine Clearance Estimated 46 mL/min (50-200); Creatinine,Serum 1.50 mg/dl (0.52-1.04); Estimated Glomerular Filt Rate 36 ml/min (>60); GFR (African American) 44 ML/MIN (>60); Globulin 2.9 g/dL (1.3-3.2); Glucose 311 mg/dl (74-100); Potassium 4.2 mmoL/L (3.5-5.1); Sodium 139 mmol/L (136-145); Total Protein,Serum 7.1 g/dl (6.3-8.2)
[2025-02-24 14:30] VITALS: BP 203/116; PULSE 95; O2SAT 97
--- NOTE | 2025-02-24 14:32 | CT_ITS ---
FINAL REPORT TECHNIQUE: IV contrast enhanced exam This study was performed with techniques to keep radiation doses as low as reasonably achievable, (ALARA). Individualized dose reduction techniques using automated exposure control or adjustment of mA and/or kV according to the patient''s size were employed. CLINICAL HISTORY: abd pain COMPARISON: 11/02/2024 FINDINGS: Abdomen: No acute density is seen within the lung bases. The gallbladder is absent. There is a moderate bilateral renal scarring. There is abnormal diminished enhancement involving the anterior half of the mid left kidney which could be related to segmental ischemia or pyelonephritis. The remaining abdominal organs are unremarkable. No bowel obstruction is present. There is no free air. No fluid collection is seen. There is a tiny umbilical hernia containing fat. There is no adenopathy. Pelvis: Pelvic bowel loops are unremarkable. There is fecal impaction. Uterus and ovaries are normal. No bowel wall thickening is present. There is no free fluid. No pelvic mass is seen. IMPRESSION: Diminished enhancement involving left mid kidney which could be related to pyelonephritis or acute segmental ischemia. No bowel obstruction or free air.. Reviewed, Interpreted and Dictated by Naty Avalos MD Transcribed by Lily Agudelo Authenticated and [facility]
[2025-02-24 14:45] LABS: Acetone, Serum (Rapid) Small (None Detect)
[2025-02-24] MEDS: droPERidol 5MG/2ML VIAL 2.5 MG IV (14:55)
[2025-02-24] MEDS: IOPAMIDOL-370 (76%);100ML BOTTLE 75 ML IV (15:02)
[2025-02-24] MEDS: SODIUM CHLORIDE 0.9% 10ML SYR (RAD ONLY) 10 ML IV (15:02)
--- NOTE | 2025-02-24 15:18 | ECG_ITS ---
APPROVED REPORT Exam: Resting ECG HR:98 bpm ECG Measurements Heart Rate 98 AXES OK 132 P 65 QRSd 93 QRS 58 QT 373 T 136 QTc 428 Conclusion SINUS RHYTHM POSSIBLE LEFT ATRIAL ENLARGEMENT [-0.1mV P-WAVE IN V1/V2] ST DEVIATION AND MODERATE T-WAVE ABNORMALITY, CONSIDER LATERAL ISCHEMIA [-0.1+ mV T-WAVE IN I/aVL/V5/V6] ABNORMAL ECG UNCONFIRMED REPORT Electronically signed by : BUTCH PRESLEY, 02/25/2025 06:43:52
[2025-02-24 15:30] VITALS: BP 208/130; PULSE 98; O2SAT 98
[2025-02-24 16:00] VITALS: BP 190/102; PULSE 94; O2SAT 94
[2025-02-24 16:37] VITALS: BP 192/116; PULSE 68; RESP 20; TEMP 36.8; O2SAT 97
[2025-02-24 17:36] LABS: Reflex Lactic Add Lactic Reflex
== END 2025-02-24 16:38 | disposition home or self-care (01) ==
PROVIDERS: Nurse Practitioner Family; Emergency Provider Student in an Organized Health Care Education/Training Program; PCP Student in an Organized Health Care Education/Training Program
DX: R11.2 Nausea with vomiting, unspecified (principal); R74.02 Elevation of levels of lactic acid dehydrogenase [LDH]; E11.65 Type 2 diabetes mellitus with hyperglycemia; Z79.4 Long term (current) use of insulin
CPT/HCPCS: 74177; 80053; 81001; 82009; 82803; 85025; 93005; 96361; 96374; 96375; 99285; J1790; J2405; J7030; Q9967

== ENCOUNTER 2025-03-02 09:20 | Inpatient (IN) | payer OTHER, SELFPAY ==
[2025-03-02] VITALS (25 sets, daily range): BP systolic 108–215; BP diastolic 65–126; PULSE 68–112; RESP 13–20; TEMP 36.4–37; O2SAT 91–98; BMI 24.0
--- OUTSIDE RECORDS SUMMARY | 2025-03-02 09:29 | XMS_ITS | Clinical Summary ---
Author Organization [facility] Address [address] [place] [address] Phone Care Team Providers Care Agricultural Production Engineer Name Role Phone Mario Walls MD Unavailable [phone] Allergies Active Allergy Reactions Criticality Noted [...] U-100 0.3 mL 31 gauge x 1564 [facility] SyringeIndicatio ns:Dyslipidemia associated with type 2 diabetes mellitus (HCC) Use as directed to inject insulin. E11.65 100 Each 12/15/19 23 Active Insulin [place], Disposable, (NICOLASA PEN NEEDLE) 32 gauge x 532 [facility] NeedleIndication s:Dyslipidemia associated with type 2 diabetes mellitus (HCC) Use with insulin 4 times daily 400 Each 1 12/18/19 23 Active Blood-Glucose Meter (FREESTYLE LITE METER) [facility] KitIndications:T ype 2 diabetes mellitus with stage 3a chronic kidney disease, with long-term current use of insulin ([facility]) 1 Kit by [facility].(Non-Drug; Combo Route) route 3 times daily. 1 Kit 05/29/19 24 Active Blood Sugar Diagnostic (FREESTYLE TEST) [facility] StripIndications :Type 2 diabetes mellitus with stage 3a chronic kidney disease, with long-term current use of insulin ([facility]) 1 Strip by [facility].(Non-Drug; Combo Route) route 3 times daily. 100 Each 11 05/29/19 24 Active Lancets [facility] MiscIndications: Type 2 diabetes mellitus with stage 3a chronic kidney disease, with long-term current use of insulin ([facility]) check FSBS 3 times a day or [...] 4 07/01/19 24 Active Blood Pressure Monitor [facility] KitIndications:B lood pressure instability,Orth ostatic hypotension,Esse ntial hypertension Check and record blood pressure daily and also prn with any feelings of lightheadedness and syncope 1 Kit 07/11/19 24 Active Blood-Glucose Sensor (DEXCOM G7 SENSOR) [facility] DeviceIndication s:Dyslipidemia associated with type 2 diabetes mellitus (HCC) 1 Each by [facility].(Non-Drug; Combo Route) route every 10 days. CHNAGE [...] UTI 11/09/2022 Coronary artery disease invo lving [place] coronary artery of [place] heart with angina pectoris 10/02/2022 Orthostatic hypotension [...] Glomerulosclerosis ) Plan- -Checking MRI with IV [id number]-ys further evaluate lesions seen on both kidneys. [...] to GI Healthcare maintenance 09/27/2021 Overview (09/27/2021): SOA ARCHITECT: Needs to establish SOA ARCHITECT care and make an appointment soon. Referral Given for [facility]. 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 Checking level Hyperuricemia 09/25/2021 History of CVA (cerebrovascular accident) 2020 Assessment & Plan (09/27/2021 8:01 PM EDT): Sees neurology. No residual deficits Coronary artery disease invo lving [place] coronary artery of [place] heart without angina pectoris 04/03/2021 Type 2 [...] 02/13/2016 N/A Surgeon: Jailyn Vieira MD; Location: [facility] END[facility]COPY; Service: Endoscopy COLONOSCOPY CARDIAC SURGERY triple bypass UPPER GASTROINTESTINAL ENDOSCOPY 05/16/2021 N/A ESOPHAGOGASTRODUODENOS COPY with biopsy and savary dilation; Surgeon: Cleveland Thomas DO; Location: ED ENDOSCOPY; Service: Endoscopy 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 Date Comments Diabetes mellitus (HCC) Renal disorder Multi-organ failure with liver failure Liver failure (HCC) reports is o n transplant list at [facility] Hepatitis B Motion sickness Pneumonia [place] (myocardial infarction) (HCC) Blood circulation, collateral Heartburn Stroke (HCC) 2019, 2019, 2020 , 2021 Post-operative nausea and vomiting extreme N/V Coronary artery disease invo lving [place] coronary artery of [place] heart without angina pectoris 04/03/2021 Hyperglycemia due [...] Date Recorded PHQ-2 Total Score 6 05/01/2023 [facility] [place] [facility] - Occupational Stress [...] ORDERABLES Final Resu lt Performing Organization Address [facility]/ZIP Co de Phone Number SEP OFFICE * [...] EDT) 02/14/2016 10:3 0 AM EDT Impressions [facility] - 02/14/2016 10:53 AM EDT [...] Vieira MD GI PROCEDURE ORDERABLES Final Result [facility] [address] [place] [address] from Last 3 Months or Most Recently Relevant to Health Maintenance Insurance [facility] [address] [facility] [address] [employer] [place] [address] Advance Directives For more information, please contact: [phone] * Full Code (Latest Code Status on [...] 4:05 PM 04/14/2021 5:40 PM Care Teams Agricultural Production Engineer Relationship Specialty Start Date End Date Mario Walls MD [address] [facility] [address] [place] [address] Internal Medicine-Cardiovascular Disease 06/18/23
--- NOTE | 2025-03-02 10:03 | XR_ITS ---
FINAL REPORT CLINICAL HISTORY: short of breath COMPARISON: 11/04/2024 FINDINGS: The heart size is normal. Sternotomy wires are present. There is no focal infiltrate or edema. There are no pleural effusions. There is no pneumothorax. There is no osseous abnormality. IMPRESSION: No acute cardiopulmonary process Reviewed, Interpreted and Dictated by Santos Hendrickson MD Transcribed by Ashanti Hernandez Authenticated and [facility]
--- NOTE | 2025-03-02 10:03 | ED_ITS ---
Discharge Plan Disposition Patient Disposition: Admitted Clinical Impressions Clinical Impression: Intractable nausea and vomiting, Hypertensive emergency, Kidney insufficiency, Kidney lesion, Chest pain Discharge ED Provider: Gordy Cuevas General Adult HPI <Whitney Sheldon (ED), [employer] - Last Filed: 03/02/25 16:45> General Chief complaint: Nausea/Vomiting/Diarrhea Stated complaint: N/V Time Seen by Provider: 03/02/25 09:49 Mode of Arrival: EMS Source of Information: Patient and EMS Description of Symptoms (Recalled from ER Triage Doc. by RN): pt reports constant vomiting for 10 days. has been unable to hold anything down @ all. fsbs 408. she has type 1 diabetes. pt reports she was in the ER on as well with no relief. denies any pain. History of Present Illness HPI narrative: This is a 54-year-old female who presents to the ED for complaints of vomiting for the past 10 days. She says she has been unable to tolerate any p.o. for the past 10 days. She has type 1 diabetes and her glucose was 408 today. She has been to the ER twice over the past week with no relief. Patient does have history of CKD, hyperlipidemia, hypertension, CAD, gastroparesis, cholecystectomy and she has had heart surgery in the past as well as an appendectomy. Patient says she has abdominal pain but only from the frequent vomiting. She does asked me to keep her at this time as she has not been well over 10 days. Related Data Home Medications ?Medication ?Instructions ?Recorded ?Confirmed lancets 28 gauge (FreeStyle #100 ea 06/03/24 02/22/25 Lancets) insulin pump cartridge,auto #1 ea 09/10/24 02/22/25 dose,BT,G6/G7 with controller subcutaneous (Omnipod 5 G6-G7 Intro Kit(Gen 5) subcutaneous cartridge and controller) estradiol 0.01% (0.1 mg/gram) 1 appful vaginal DIRE CTED 03/02/25 03/02/25 vaginal cream (Estrace) insulin lispro 100 unit/mL 1 unit SQ DIRECTED 03/0203/02/25 subcutaneous solution (Admelog U-100 Insulin lispro) ondansetron 4 mg disintegrating 4 mg PO Q8HP PRN nause a and 03/02/25 03/02/25 tablet vomiting sertraline 50 mg tablet 50 mg PO DAILY 03/02/25 1012/28 Previous Rx's ?Medication ?Instructions ?Recorded 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,senior science consultant,cont #1 ea 06/01/24 (Dexcom G7 Senior Quality Methods Specialist) clopidogrel 75 mg tablet (Plavix) 75 mg PO DAILY #90 t abs 06/03/24 empagliflozin 10 mg tablet 10 mg PO DAILY #90 tabs (Jardiance) insulin pump cart,auto,BT,G6/7 #5 ea 10/16/24 (Omnipod 5 G6-G7 Pods (Gen 5) subcutaneous cartridge) rosuvastatin 10 mg tablet (Crestor) 10 mg PO DAILY #30 tabs 12/08/24 inclisiran 284 mg/1.5 mL 284 mg (1.5 mL) SQ [id number] 2 12/14/24 subcutaneous syringe (Leqvio) doses #1.5 mL omeprazole 20 mg capsule,delayed 20 mg PO DAILY #30 ca ps 12/14/24 release 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 sensor (Dexcom G7 #9 ea 12/25/24 Sensor device) gabapentin 600 mg tablet 600 mg PO TID #90 tabs 02/12 semaglutide 0.25 mg or 0.5 mg (2 0.25 mg (0.368 mL) SQ WEEKLY #3 mL 02/12/25 mg/3 mL) subcutaneous pen injector (Ozempic) Allergies Allergy/AdvReac Type Severity Reaction Status Date / Time atorvastatin Allergy Severe lowers Verified 02/22/25 10:57 blood pressure aspirin (ASPIRIN) Allergy Intermediate I-HIVES Verified 02/22/25 10:57 latex (LATEX) Allergy Unknown RASH, HIVES Verified 02/22/25 10:57 midodrine AdvReac Severe Unknown Verified 02/22/25 10:57 allergy reaction [facility] <Whitney Sheldon (ED), [employer] - Last Filed: 03/02/25 16:45> [facility] Disclaimer: The information contained in this section may have been updated after the patient was seen, as this information can be updated by other users. 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 , [employer]) CKD (chronic kidney disease) stage 4, GFR 15-29 ml/min Breast cancer screening Colon cancer screening Diabetic peripheral neuropathy Kidney insufficiency HLD (hyperlipidemia) HTN (hypertension) WARREN (dyspnea on exertion) CAD (coronary artery disease) PTSD (post-traumatic stress disorder) History of type 1 diabetes mellitus Gastroparesis diabeticorum History of gastroesophageal reflux (GERD) History of stroke Cholecystectomy planned Hypotension Angina pectoris Surgical History , [employer]) History of heart surgery Hx of appendectomy Social History , [employer]) Smoking Status: Never smoker alcohol intake: never substance use type: denies use current occupational status: unemployed Travel in the last 8 weeks?: None Have you lived/traveled outside US in past 30 days?: No Contact w/someone who lives/traveled outside US past 30 days?: No Exposure to someone with infectious disease in past 14 days?: No Do you have a fever (greater than 100.4 F or 38 C)?: No Have you tested positive for COVID-19?: No Exposed to someone with COVID-19 in past 14 days?: No Do you have a sore throat?: No Do you have a cough?: No Do you have any weakness?: No Do you have any diarrhea?: No Are you experiencing any unusual bleeding?: No Do you have any muscle aches/pain?: No Do you have any abdominal pain?: No Are you experiencing loss of taste or smell?: No Other 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 Have you received the Flu Vaccine for this season: No Have you received the Pneumonia Vaccine: No <Whitney Sheldon (ED), [employer] - Last Filed: 03/02/25 16:45> ROS Obtained: Yes Systems reviewed as appropriate & no additional complaints except as documented Constitutional Constitutional: Reports as per HPI Physical Exam <Whitney Sheldon (ED), [employer] - Last Filed: 03/02/25 16:45> General General appearance: alert and in distress Head Head exam: normocephalic Eye Eye exam: Present PERRL and EOMI ENT ENT exam: Present normal oropharynx and mucous membranes moist Neck Neck exam: Present full ROM and trachea midline Respiratory Respiratory exam: Present normal lung sounds bilaterally Cardiovascular Cardiovascular exam: Present normal rhythm, tachycardia, normal heart sounds, +S1 and +S2 Abdominal Exam Abdominal exam: Present soft, tenderness and normal bowel sounds Abdominal tenderness: Present diffuse Extremities Exam Extremities exam: Present normal inspection, full ROM and normal capillary refill Neurological Exam Neurological exam: Present alert and oriented X3 Skin Skin exam: Present warm, dry and intact Medical Decision Making <Whitney Floriankaty (ED), [employer] - Last Filed: 03/02/25 16:45> Medical Records Screening: Per USPSTF and CDC recommendations, given the prevalence of disease in our region, it is our hospital?s policy to screen for HIV and viral Hepatitis for all patients aged 18 and over and those with ongoing risk factors. Nick Inquiry Pt receiving controlled substance: No Nick was queried for this patient: No Vital Signs: 03/02/25 09:25 03/02/25 09:27 03/02/25 09:30 Temperature 97.5 F L Temperature Source Oral Pulse Rate 112 H 105 H Pulse Rate [Right] 112 H Respiratory Rate 20 Blood Pressure 182/123 H 196/122 H Blood Pressure [Right Arm] 182/123 H Blood Pressure Mean Blood Pressure Mean [Right Arm] 142 02 Sat by Pulse Oximetry 98 98 97 Oxygen Delivery Method Room Air Room Air 03/02/25 10:19 03/02/25 11:19 03/02/25 11:30 Temperature Temperature Source Pulse Rate 102 H Pulse Rate [Right] Respiratory Rate Blood Pressure 167/109 H 154/98 H 215/115 H Blood Pressure [Right Arm] Blood Pressure Mean Blood Pressure Mean [Right Arm] 02 Sat by Pulse Oximetry 96 Oxygen Delivery Method 03/02/25 11:48 03/02/25 12:30 03/02/25 13:00 Temperature Temperature Source Pulse Rate 104 H 102 H 98 H Pulse Rate [Right] Respiratory Rate Blood Pressure 206/126 H 201/117 H 206/118 H Blood Pressure [Right Arm] Blood Pressure Mean Blood Pressure Mean [Right Arm] 02 Sat by Pulse Oximetry 98 96 91 L Oxygen Delivery Method 03/02/25 14:00 03/02/25 14:44 03/02/25 15:00 Temperature Temperature Source Pulse Rate 100 H Pulse Rate [Right] Respiratory Rate Blood Pressure 205/123 H 148/85 H 161/93 H Blood Pressure [Right Arm] Blood Pressure Mean 106 111 Blood Pressure Mean [Right Arm] 02 Sat by Pulse Oximetry 95 Oxygen Delivery Method 03/02/25 15:30 03/02/25 15:43 03/02/25 15:44 Temperature Temperature Source Pulse Rate 98 H 89 88 Pulse Rate [Right] Respiratory Rate 16 17 17 Blood Pressure 136/80 154/98 H 167/109 H Blood Pressure [Right Arm] Blood Pressure Mean 108 112 123 Blood Pressure Mean [Right Arm] 02 Sat by Pulse Oximetry 95 95 96 Oxygen Delivery Method Room Air Room Air Room Air 03/02/25 16:22 03/02/25 16:30 03/02/25 16:46 Temperature Temperature Source Pulse Rate 81 88 86 Pulse Rate [Right] Respiratory Rate 16 16 16 Blood Pressure 119/68 127/76 108/65 L Blood Pressure [Right Arm] Blood Pressure Mean 85 85 77 Blood Pressure Mean [Right Arm] 02 Sat by Pulse Oximetry 98 97 98 Oxygen Delivery Method Lab Data Lab Results 03/02/25 09:15: WBC 9.7, RBC 5.63 H, Hgb 16.0, Hct 45.2, MCV 80.3 L, MCH 28.4, MCHC 35.4, RDW 12.8, Plt Count 324, MPV 10.8 H, Neut % (Auto) 75.4, Lymph % (Auto) 17.7, [place] % (Auto) 5.8, Eos % (Auto) 0.5, Baso % (Auto) 0.4, Neut # (Auto) 7.3, Lymph # (Auto) 1.7, [place] # (Auto) 0.6, Eos # (Auto) 0.1, Baso # (Auto) 0.0, ESR 14, Sodium 130 L, Potassium 3.0 L, Chloride 83 L, Carbon Dioxide 36 H, Anion Gap 14.0, BUN 35 H, Creatinine 1.50 H, Estimated Creat Clear 42, E stimated GFR 36 L, Est GFR ( Amer) 44 L, Glucose 423 H*, Hemoglobin A1c 7.5 H, Calcium 8.8, Phosphorus 3.6, Total Bilirubin 1.3, AST 36, ALT 25, Alkaline Phosphatase 101, Total Creatine Kinase 33, Troponin I 0.05 H, C- Reactive Protein 3.9, Total Protein 7.2, Albumin 3.5, Globulin 3.7 H, A lbumin/Globulin Ratio 0.9 L, TSH 3.04, Free T4 2.85 H, Acetone Level None detected 03/02/25 10:35: VBG pH 7.49 H, VBG pCO2 39.1, VBG pO2 55.5 H, VBG HCO3 29.3, VBG Total CO2 30.5 H, VBG O2 Saturation 90.0 H, VBG Base Excess 6.0 H, VBG Lactic Acid 3.0 H, Lactate 2.3 H 03/02/25 14:28: Urine Color Yellow, Urine Appearance Clear, Urine pH 8.0, Ur Specific Wilbur 1.015, Urine Protein 3+ A, Urine Glucose (UA) 3+, Urine Ketones 1+, Urine Blood Trace-l, Urine Nitrate Negative, Urine Bilirubin Negative, Urine Urobilinogen 1.0, Ur Leukocyte Esterase Negative, Urine RBC None, Urine WBC 5- 10, Ur Squamous Epith Cells 3-5, Urine Bacteria Trace, Urine Opiates Screen Negative, Urine Methadone Screen Negative, Ur Barbituates Screen Negative, Ur Phencyclidine Scrn Negative, Ur Amphetamines Screen Negative, U Benzodiazepines Scrn Negative, Urine Cocaine Screen Negative, U Marijuana (THC) Screen Negative 03/02/25 14:33: Chlamy pneumoniae PCR Not detected, Adenovirus (PCR) Not detected, B. pertussis DNA (PCR) Not detected, Coronavirus OC43 (PCR) Not detected, Coronavirus HKU1 (PCR) Not detected, Coronavirus 229E (PCR) Not detected, SARS-CoV-2 (PCR) Not detected 03/02/25 14:33: SARS-CoV-2 (PCR) Not detected, Coronavirus NL63 (PCR) Not detected, Human Metapneumovir PCR Not detected, Influenza A (H1) PCR Not detected, Influ A (H1N1/09) PCR Not detected, Influenza A (H3) PCR Not detected, Influenza Type A (PCR) Not detected, Influenza A Untype (PCR) Not detected, Influenza Type B (PCR) Not detected 03/02/25 14:33: Influenza Type B (PCR) Not detected, M. pneumoniae (PCR) Not detected, Parainfluenza 1 (PCR) Not detected, Parainfluenza 2 (PCR) Not detected, Parainfluenza 3 (PCR) Not detected, Parainfluenza 4 (PCR) Not detected, RSV (PCR) Not detected, Entero/Rhino (PCR) Not detected 03/02/25 14:50: D-Dimer 0.92 H, Lactate 2.1 03/03/25 05:51 03/03/25 05:51 Orders (Tests/Meds): ED MEDICATIONS Generic Name Dose Route Start Last Admin Trade Name Freq PRN Reason Stop Dose Admin Acetaminophen 650 mg 03/02/25 15:46 Acetaminophen 325mg Tab PO 04/01/25 15:45 Q4HP PRN Fever or Mild Pain (1-3) Hydrocodone Bitart/Acetaminophen 1 tab 03/02/25 15:46 Hydrocodone/Apap 5/325 Mg Tablet PO 04/01/25 15:45 Q4HP PRN Mild to Moderate Pain (1-6) Clopidogrel Bisulfate 75 mg 03/03/25 09:00 03/03/25 09:40 Clopidogrel 75mg Tab PO 04/02/25 08:59 75 mg DAILY JHON Administration Enoxaparin Sodium 70 mg 03/03/25 09:00 03/03/25 09:39 Enoxaparin 80mg/0.8ml Syringe SUBCUT 04/02/25 08:59 70 mg Q12H JHON Administration Gabapentin 600 mg 03/02/25 21:00 03/03/25 09:40 Gabapentin 600mg Tablet PO 04/01/25 20:59 600 mg TID JHON Administration Lactated Ringer's 1,000 mls @ 100 mls/hr 03/02/25 16:00 03/03/25 10:10 Lactated Ringer's 1000 Ml Bag IV 04/01/25 15:59 Infused .Q10H JHON Infusion Insulin Human Lispro 0 unit 03/02/25 16:30 03/03/25 06:13 Humalog 100 Units/Ml 10ml Vial (Ssi) SUBCUT 04/01/25 16:29 4 unit ACHS JHON Administration Protocol Lidocaine 1 each 03/02/25 22:45 03/02/25 23:04 Lidocaine 5% Transdermal Patch TD 04/01/25 22:44 1 each Q24H JHON Administration Metoclopramide HCl 10 mg 03/02/25 18:03 03/03/25 04:43 Metoclopramide Hcl 10mg/2ml Vial IVP 04/01/25 18:02 10 mg Q6HP PRN Administration Nausea And Vomiting Nicotine 21 mg 03/02/25 15:46 Nicotine 21mg/24hr Patch TD 04/01/25 15:45 DAILYP PRN Nicotine Cravings Pantoprazole Sodium 40 mg 03/02/25 21:00 03/02/25 20:02 Pantoprazole 40mg Vial IV 04/01/25 20:59 40 mg HS JHON Administration Promethazine HCl 25 mg 03/02/25 15:46 03/03/25 08:41 Promethazine Hcl 25mg/Ml 1ml Vial IV 04/01/25 15:45 25 mg Q6HP PRN Administration Nausea And Vomiting Propranolol HCl 10 mg 03/02/25 16:55 03/03/25 09:39 Propranolol 20mg Tab PO 04/01/25 16:54 10 mg TID JHON Administration Sodium Chloride 10 ml 03/02/25 18:02 Sodium Chloride 0.9% 10ml Vial IV 04/01/25 18:01 NEEDED PRN dilute protonix Discontinued Medications Generic Name Dose Route Start Last Admin Trade Name Freq PRN Reason Stop Dose Admin Droperidol 2.5 mg 03/02/25 14:14 03/02/25 14:40 Droperidol 5mg/2ml Vial IV 03/02/25 14:15 2.5 mg ONCE ONE Administration Enoxaparin Sodium 65 mg 03/02/25 22:00 03/02/25 23:04 Enoxaparin 100mg/Ml Syringe 1 mg/kg (65 mg) 04/01/25 21:59 65 mg SUBCUT Administration Q12H JHON Lactated Ringer's 1,910 mls @ 955 mls/hr 03/02/25 10:03 03/02/25 13:17 Lactated Ringer's 1000 Ml Bag 30 ml/kg infuse over 2 hr (1910 ml) 03/02/25 12:02 Infused IV Infusion .Q2H ONE Protocol Potassium Chloride/Water 100 mls @ 100 mls/hr 03/02/25 10:44 03/02/25 15:10 Potassium Chloride 10meq/100ml Ivpb IV 03/02/25 12:43 Infused Q1H JHON Infusion Sodium Nitroprusside 50 mg/ 252 mls @ 5.761 mls/hr 03/02/25 15:00 03/02/25 19:00 Dextrose IV 04/01/25 14:59 0 mcg/kg/min .Q24H JHON 0 mls/hr Protocol Titration 0.3 MCG/KG/MIN Magnesium Sulfate 2 gm in 50 mls @ 50 mls/hr 03/02/25 17:30 03/02/25 22:08 Magnesium Sulfate 2gm/50ml Premix IV 03/02/25 20:29 Infused Q1H JHON Infusion Iopamidol 60 ml 03/02/25 10:59 03/02/25 11:00 Iopamidol-370 (76%);100ml Bottle IV 03/02/25 11:00 60 ml ONCE ONE Administration Iopamidol 80 ml 03/02/25 13:26 03/02/25 13:28 Iopamidol-370 (76%);100ml Bottle IV 03/02/25 13:27 80 ml ONCE ONE Administration Iopamidol 90 ml 03/03/25 11:37 03/03/25 11:39 Iopamidol-370 (76%);100ml Bottle IV 03/03/25 11:38 90 ml ONCE ONE Administration Methylprednisolone Sodium Succinate 60 mg 03/02/25 16:51 03/02/25 17:27 Methylprednisolone Sod Succ 40mg Vial IV 03/02/25 16:52 60 mg ONCE ONE Administration Ondansetron HCl 4 mg 03/02/25 10:03 03/02/25 10:39 Ondansetron 4mg/2ml Vial IV 03/02/25 10:04 4 mg ONCE ONE Administration Ondansetron HCl 4 mg 03/02/25 13:11 03/02/25 13:41 Ondansetron 4mg/2ml Vial IV 03/02/25 13:12 4 mg ONCE ONE Administration Potassium Chloride 40 meq 03/03/25 07:45 03/03/25 09:39 Potassium Chloride 20meq Tab PO 03/03/25 11:46 40 meq Q4H JHON Administration Sodium Chloride 10 ml 03/02/25 10:59 03/02/25 11:00 Sodium Chloride 0.9% 10ml Syr (Rad Only) IV 03/02/25 11:00 10 ml ONCE ONE Administration Sodium Chloride 50 ml 03/02/25 13:26 03/02/25 13:27 0.9 % Sodium Chloride 50 Ml Vial IV 03/02/25 13:27 40 ml ONCE ONE Administration Sodium Chloride 10 ml 03/02/25 13:26 03/02/25 13:28 Sodium Chloride 0.9% 10ml Syr (Rad Only) IV 03/02/25 13:27 10 ml ONCE ONE Administration Sodium Chloride 25 ml 03/02/25 15:46 03/02/25 18:31 Sodium Chloride 0.9% 25ml Bag IV 03/02/25 15:47 Not Given ONCE ONE Sodium Chloride 50 ml 03/03/25 11:37 03/03/25 11:39 0.9 % Sodium Chloride 50 Ml Vial IV 03/03/25 11:38 50 ml ONCE ONE Administration ORDERS Category Date Time Status CT abdomen pelvis w con Stat Cat Scan 03/02/25 10:[address] angio abdomen pelvis Stat Cat Scan 03/02/25 12:28 Completed Chest XR -- portable [XR chest portable] Stat Exams 03/02/25 10:03 Completed Acetone, Serum (Rapid) Stat Lab 03/02/25 09:15 Completed C-Reactive Protein Stat Lab 03/02/25 09:15 Completed Complete Blood Count Auto Diff AMLAB Lab 03/03/25 05:51 Completed Complete Blood Count Auto Diff AMLAB Lab 03/04/25 06:00 Ordered Complete Blood Count Auto Diff AMLAB Lab 03/05/25 06:00 Ordered Complete Blood Count Auto Diff AMLAB Lab 03/06/25 06:00 Ordered Complete Blood Count Auto Diff AMLAB Lab 03/07/25 06:00 Ordered Complete Blood Count Auto Diff Stat Lab 03/02/25 09:15 Completed Comprehensive Metabolic Panel AMLAB Lab 03/03/25 05:51 Completed Comprehensive Metabolic Panel AMLAB Lab 03/04/25 06:00 Ordered Comprehensive Metabolic Panel AMLAB Lab 03/05/25 06:00 Ordered Comprehensive Metabolic Panel AMLAB Lab 03/06/25 06:00 Ordered Comprehensive Metabolic Panel AMLAB Lab 03/07/25 06:00 Ordered Comprehensive Metabolic Panel Stat Lab 03/02/25 09:15 Completed Creatine Kinase Stat Lab 03/02/25 09:15 Completed D-Dimer Stat Lab 03/02/25 14:50 Completed Erythrocyte Sedimentation Rate Stat Lab 03/02/25 09:15 Completed Free T4 (Free Thyroxine) Stat Lab 03/02/25 09:15 Completed Full Resp Panel w/COVID ([facility]) Routine Lab 03/02/25 14:33 Completed Hemoglobin A1C Stat Lab 03/02/25 09:15 Completed Lactic Acid Follow Up (RFLX 1) Stat Lab 03/02/25 14:50 Completed Lactic Acid Stat Lab 03/02/25 10:35 Completed Magnesium AMLAB Lab 03/03/25 05:51 Completed Magnesium AMLAB Lab 03/04/25 06:00 Ordered Magnesium AMLAB Lab 03/05/25 06:00 Ordered Magnesium AMLAB Lab 03/06/25 06:00 Ordered Magnesium AMLAB Lab 03/07/25 06:00 Ordered Magnesium Stat Lab 03/02/25 16:00 Completed PHOS [Phosphorous] Stat Lab 03/02/25 16:00 Completed Phosphorous Stat Lab 03/02/25 09:15 Completed Procalcitonin Routine Lab 03/02/25 16:00 Completed Rapid PCR Covid and Flu A/B Stat Lab 03/02/25 14:33 Completed TSH [Thyroid Stimulating Hormone] Stat Lab 03/02/25 09:15 Completed Trop I [Troponin I] Stat Lab 03/02/25 09:15 Completed Troponin I Q3H Lab 03/02/25 18:00 Completed Troponin I Q3H Lab 03/02/25 21:13 Completed UDS [Drug Screen,Urine] Stat Lab 03/02/25 14:28 Completed Urinalysis and Microscopic Stat Lab 03/02/25 14:28 Completed Blood Culture Stat Micro 03/02/25 16:05 Received Venous Blood Gas Stat RT 03/02/25 10:35 Completed CA echo doppler complete Stat Y 03/02/25 14:53 Completed Medical Decision Narrative: patient is a 54-year-old female presenting to the emergency department for evaluation of nausea, vomiting and intolerance of p.o. food or fluids for 10 days. Patient is ill-appearing and her blood pressure is 182/123 on arrival, afebrile. Differential diagnosis includes sepsis, gastroenteritis, DKA, among other. Workup will be conducted with hematologic labs, specific imaging. Initial inventions include crystalloid bolus, analgesics, antibiotics. Initial workup reviewed by [place] hematologic labs are remarkable for white count was 9.7, VBG pH 7.49 pO2 55.5, CO2 30.5 lactic was 3, sodium is 138, potassium 3 which is being replaced IV potassium 10 mill equivalents at a time, chloride 83 BUN 35, creatinine 1.5. Patient's GFR was 36 glucose was 423 and lactate was 2.3. Patient's liver workup was normal. We are waiting for a troponin to result along with a D-dimer to result as patient blood pressure has been elevated in the 200s systolic. Patient admitted to chest feeling like her heart drops then comes back up then drops again. She has also been vomiting for 10 days straight. We did an EKG in order to give her droperidol and it showed LVH which was different than her previous EKG. I sent this to Dr. Fan who also said it was LVH. He wants us to start enalapril drip and admit patient. He also wants us to get an echo. Patient has been accepted via hospital medicine. Dr. Cuevas discussed this patient with Dr Maverick Cuevas MD: I was consulted by the VALENCIA, and we discussed the complexity of the problems being addressed. I approved the treatment and management plan for this patient's care in the emergency department, thus performing a substantive portion of the medical decision making. Patient had multiple complaints, she has had intractable vomiting over the last 10 days. Initially patient had hematologic labs which were remarkable for metabolic derangement consistent with vomiting including hyponatremia hypokalemia hypochloremia for which potassium was repleted, she has a hyperglycemia without evidence of DKA, metabolic alkalosis. Patient is getting appropriate aggressive crystalloid resuscitation has had multiple antiemetics and droperidol. Patient has dynamic T wave inversions on her EKG and upon further questioning patient states that she has had intermittent chest pain over the last 10 days. Given this we will add on troponin and D-dimer. CT of the abdomen pelvis had findings on the kidney for which differential necessitated CTA which was ordered conducted and pending at time of transfer of care to the oncoming physician, Dr. Urbano. The case was discussed with cardiology prior to transition of care, ultimately patient will require admission for dynamic T wave inversions. She was hypertensive however after droperidol her blood pressure dropped to an acceptable level. I suspect significant afterload in the setting of multiple Valsalva's. Either way my pride drip will be initiated for systolic greater than 160 if that is to occur. D-dimer troponin repeat evaluation pending at time of transfer of care. <Gordy Cuevas MD - Last Filed: 03/03/25 11:53> Vital Signs: 03/02/25 09:25 03/02/25 09:27 03/02/25 09:30 Temperature 97.5 F L Temperature Source Oral Pulse Rate 112 H 105 H Pulse Rate [Right] 112 H Respiratory Rate 20 Blood Pressure 182/123 H 196/122 H Blood Pressure [Right Arm] 182/123 H Blood Pressure Mean Blood Pressure Mean [Right Arm] 142 02 Sat by Pulse Oximetry 98 98 97 Oxygen Delivery Method Room Air Room Air 03/02/25 10:19 03/02/25 11:19 03/02/25 11:30 Temperature Temperature Source Pulse Rate 102 H Pulse Rate [Right] Respiratory Rate Blood Pressure 167/109 H 154/98 H 215/115 H Blood Pressure [Right Arm] Blood Pressure Mean Blood Pressure Mean [Right Arm] 02 Sat by Pulse Oximetry 96 Oxygen Delivery Method 03/02/25 11:48 03/02/25 12:30 03/02/25 13:00 Temperature Temperature Source Pulse Rate 104 H 102 H 98 H Pulse Rate [Right] Respiratory Rate Blood Pressure 206/126 H 201/117 H 206/118 H Blood Pressure [Right Arm] Blood Pressure Mean Blood Pressure Mean [Right Arm] 02 Sat by Pulse Oximetry 98 96 91 L Oxygen Delivery Method 03/02/25 14:00 03/02/25 14:44 03/02/25 15:00 Temperature Temperature Source Pulse Rate 100 H Pulse Rate [Right] Respiratory Rate Blood Pressure 205/123 H 148/85 H 161/93 H Blood Pressure [Right Arm] Blood Pressure Mean 106 111 Blood Pressure Mean [Right Arm] 02 Sat by Pulse Oximetry 95 Oxygen Delivery Method 03/02/25 15:30 03/02/25 15:43 03/02/25 15:44 Temperature Temperature Source Pulse Rate 98 H 89 88 Pulse Rate [Right] Respiratory Rate 16 17 17 Blood Pressure 136/80 154/98 H 167/109 H Blood Pressure [Right Arm] Blood Pressure Mean 108 112 123 Blood Pressure Mean [Right Arm] 02 Sat by Pulse Oximetry 95 95 96 Oxygen Delivery Method Room Air Room Air Room Air 03/02/25 16:22 03/02/25 16:30 03/02/25 16:46 Temperature Temperature Source Pulse Rate 81 88 86 Pulse Rate [Right] Respiratory Rate 16 16 16 Blood Pressure 119/68 127/76 108/65 L Blood Pressure [Right Arm] Blood Pressure Mean 85 85 77 Blood Pressure Mean [Right Arm] 02 Sat by Pulse Oximetry 98 97 98 Oxygen Delivery Method Lab Data Lab Results 03/02/25 09:15: WBC 9.7, RBC 5.63 H, Hgb 16.0, Hct 45.2, MCV 80.3 L, MCH 28.4, MCHC 35.4, RDW 12.8, Plt Count 324, MPV 10.8 H, Neut % (Auto) 75.4, Lymph % (Auto) 17.7, [place] % (Auto) 5.8, Eos % (Auto) 0.5, Baso % (Auto) 0.4, Neut # (Auto) 7.3, Lymph # (Auto) 1.7, [place] # (Auto) 0.6, Eos # (Auto) 0.1, Baso # (Auto) 0.0, ESR 14, Sodium 130 L, Potassium 3.0 L, Chloride 83 L, Carbon Dioxide 36 H, Anion Gap 14.0, BUN 35 H, Creatinine 1.50 H, Estimated Creat Clear 42, E stimated GFR 36 L, Est GFR ( Amer) 44 L, Glucose 423 H*, Hemoglobin A1c 7.5 H, Calcium 8.8, Phosphorus 3.6, Total Bilirubin 1.3, AST 36, ALT 25, Alkaline Phosphatase 101, Total Creatine Kinase 33, Troponin I 0.05 H, C- Reactive Protein 3.9, Total Protein 7.2, Albumin 3.5, Globulin 3.7 H, A lbumin/Globulin Ratio 0.9 L, TSH 3.04, Free T4 2.85 H, Acetone Level None detected 03/02/25 10:35: VBG pH 7.49 H, VBG pCO2 39.1, VBG pO2 55.5 H, VBG HCO3 29.3, VBG Total CO2 30.5 H, VBG O2 Saturation 90.0 H, VBG Base Excess 6.0 H, VBG Lactic Acid 3.0 H, Lactate 2.3 H 03/02/25 14:28: Urine Color Yellow, Urine Appearance Clear, Urine pH 8.0, Ur Specific Wilbur 1.015, Urine Protein 3+ A, Urine Glucose (UA) 3+, Urine Ketones 1+, Urine Blood Trace-l, Urine Nitrate Negative, Urine Bilirubin Negative, Urine Urobilinogen 1.0, Ur Leukocyte Esterase Negative, Urine RBC None, Urine WBC 5- 10, Ur Squamous Epith Cells 3-5, Urine Bacteria Trace, Urine Opiates Screen Negative, Urine Methadone Screen Negative, Ur Barbituates Screen Negative, Ur Phencyclidine Scrn Negative, Ur Amphetamines Screen Negative, U Benzodiazepines Scrn Negative, Urine Cocaine Screen Negative, U Marijuana (THC) Screen Negative 03/02/25 14:33: Chlamy pneumoniae PCR Not detected, Adenovirus (PCR) Not detected, B. pertussis DNA (PCR) Not detected, Coronavirus OC43 (PCR) Not detected, Coronavirus HKU1 (PCR) Not detected, Coronavirus 229E (PCR) Not detected, SARS-CoV-2 (PCR) Not detected 03/02/25 14:33: SARS-CoV-2 (PCR) Not detected, Coronavirus NL63 (PCR) Not detected, Human Metapneumovir PCR Not detected, Influenza A (H1) PCR Not detected, Influ A (H1N1/09) PCR Not detected, Influenza A (H3) PCR Not detected, Influenza Type A (PCR) Not detected, Influenza A Untype (PCR) Not detected, Influenza Type B (PCR) Not detected 03/02/25 14:33: Influenza Type B (PCR) Not detected, M. pneumoniae (PCR) Not detected, Parainfluenza 1 (PCR) Not detected, Parainfluenza 2 (PCR) Not detected, Parainfluenza 3 (PCR) Not detected, Parainfluenza 4 (PCR) Not detected, RSV (PCR) Not detected, Entero/Rhino (PCR) Not detected 03/02/25 14:50: D-Dimer 0.92 H, Lactate 2.1 Orders (Tests/Meds): ED MEDICATIONS Generic Name Dose Route Start Last Admin Trade Name Freq PRN Reason Stop Dose Admin Acetaminophen 650 mg 03/02/25 15:46 Acetaminophen 325mg Tab PO 04/01/25 15:45 Q4HP PRN Fever or Mild Pain (1-3) Hydrocodone Bitart/Acetaminophen 1 tab 03/02/25 15:46 Hydrocodone/Apap 5/325 Mg Tablet PO 04/01/25 15:45 Q4HP PRN Mild to Moderate Pain (1-6) Clopidogrel Bisulfate 75 mg 03/03/25 09:00 03/03/25 09:40 Clopidogrel 75mg Tab PO 04/02/25 08:59 75 mg DAILY JHON Administration Enoxaparin Sodium 70 mg 03/03/25 09:00 03/03/25 09:39 Enoxaparin 80mg/0.8ml Syringe SUBCUT 04/02/25 08:59 70 mg Q12H JHON Administration Gabapentin 600 mg 03/02/25 21:00 03/03/25 09:40 Gabapentin 600mg Tablet PO 04/01/25 20:59 600 mg TID JHON Administration Lactated Ringer's 1,000 mls @ 100 mls/hr 03/02/25 16:00 03/03/25 10:10 Lactated Ringer's 1000 Ml Bag IV 04/01/25 15:59 Infused .Q10H JHON Infusion Insulin Human Lispro 0 unit 03/02/25 16:30 03/03/25 06:13 Humalog 100 Units/Ml 10ml Vial (Ssi) SUBCUT 04/01/25 16:29 4 unit ACHS JHON Administration Protocol Lidocaine 1 each 03/02/25 22:45 03/02/25 23:04 Lidocaine 5% Transdermal Patch TD 04/01/25 22:44 1 each Q24H JHON Administration Metoclopramide HCl 10 mg 03/02/25 18:03 03/03/25 04:43 Metoclopramide Hcl 10mg/2ml Vial IVP 04/01/25 18:02 10 mg Q6HP PRN Administration Nausea And Vomiting Nicotine 21 mg 03/02/25 15:46 Nicotine 21mg/24hr Patch TD 04/01/25 15:45 DAILYP PRN Nicotine Cravings Pantoprazole Sodium 40 mg 03/02/25 21:00 03/02/25 20:02 Pantoprazole 40mg Vial IV 04/01/25 20:59 40 mg HS JHON Administration Promethazine HCl 25 mg 03/02/25 15:46 03/03/25 08:41 Promethazine Hcl 25mg/Ml 1ml Vial IV 04/01/25 15:45 25 mg Q6HP PRN Administration Nausea And Vomiting Propranolol HCl 10 mg 03/02/25 16:55 03/03/25 09:39 Propranolol 20mg Tab PO 04/01/25 16:54 10 mg TID JHON Administration Sodium Chloride 10 ml 03/02/25 18:02 Sodium Chloride 0.9% 10ml Vial IV 04/01/25 18:01 NEEDED PRN dilute protonix Discontinued Medications Generic Name Dose Route Start Last Admin Trade Name Freq PRN Reason Stop Dose Admin Droperidol 2.5 mg 03/02/25 14:14 03/02/25 14:40 Droperidol 5mg/2ml Vial IV 03/02/25 14:15 2.5 mg ONCE ONE Administration Enoxaparin Sodium 65 mg 03/02/25 22:00 03/02/25 23:04 Enoxaparin 100mg/Ml Syringe 1 mg/kg (65 mg) 04/01/25 21:59 65 mg SUBCUT Administration Q12H JHON Lactated Ringer's 1,910 mls @ 955 mls/hr 03/02/25 10:03 03/02/25 13:17 Lactated Ringer's 1000 Ml Bag 30 ml/kg infuse over 2 hr (1910 ml) 03/02/25 12:02 Infused IV Infusion .Q2H ONE Protocol Potassium Chloride/Water 100 mls @ 100 mls/hr 03/02/25 10:44 03/02/25 15:10 Potassium Chloride 10meq/100ml Ivpb IV 03/02/25 12:43 Infused Q1H JHON Infusion Sodium Nitroprusside 50 mg/ 252 mls @ 5.761 mls/hr 03/02/25 15:00 03/02/25 19:00 Dextrose IV 04/01/25 14:59 0 mcg/kg/min .Q24H JHON 0 mls/hr Protocol Titration 0.3 MCG/KG/MIN Magnesium Sulfate 2 gm in 50 mls @ 50 mls/hr 03/02/25 17:30 03/02/25 22:08 Magnesium Sulfate 2gm/50ml Premix IV 03/02/25 20:29 Infused Q1H JHON Infusion Iopamidol 60 ml 03/02/25 10:59 03/02/25 11:00 Iopamidol-370 (76%);100ml Bottle IV 03/02/25 11:00 60 ml ONCE ONE Administration Iopamidol 80 ml 03/02/25 13:26 03/02/25 13:28 Iopamidol-370 (76%);100ml Bottle IV 03/02/25 13:27 80 ml ONCE ONE Administration Iopamidol 90 ml 03/03/25 11:37 03/03/25 11:39 Iopamidol-370 (76%);100ml Bottle IV 03/03/25 11:38 90 ml ONCE ONE Administration Methylprednisolone Sodium Succinate 60 mg 03/02/25 16:51 03/02/25 17:27 Methylprednisolone Sod Succ 40mg Vial IV 03/02/25 16:52 60 mg ONCE ONE Administration Ondansetron HCl 4 mg 03/02/25 10:03 03/02/25 10:39 Ondansetron 4mg/2ml Vial IV 03/02/25 10:04 4 mg ONCE ONE Administration Ondansetron HCl 4 mg 03/02/25 13:11 03/02/25 13:41 Ondansetron 4mg/2ml Vial IV 03/02/25 13:12 4 mg ONCE ONE Administration Potassium Chloride 40 meq 03/03/25 07:45 03/03/25 09:39 Potassium Chloride 20meq Tab PO 03/03/25 11:46 40 meq Q4H JHON Administration Sodium Chloride 10 ml 03/02/25 10:59 03/02/25 11:00 Sodium Chloride 0.9% 10ml Syr (Rad Only) IV 03/02/25 11:00 10 ml ONCE ONE Administration Sodium Chloride 50 ml 03/02/25 13:26 03/02/25 13:27 0.9 % Sodium Chloride 50 Ml Vial IV 03/02/25 13:27 40 ml ONCE ONE Administration Sodium Chloride 10 ml 03/02/25 13:26 03/02/25 13:28 Sodium Chloride 0.9% 10ml Syr (Rad Only) IV 03/02/25 13:27 10 ml ONCE ONE Administration Sodium Chloride 25 ml 03/02/25 15:46 03/02/25 18:31 Sodium Chloride 0.9% 25ml Bag IV 03/02/25 15:47 Not Given ONCE ONE Sodium Chloride 50 ml 03/03/25 11:37 03/03/25 11:39 0.9 % Sodium Chloride 50 Ml Vial IV 03/03/25 11:38 50 ml ONCE ONE Administration ORDERS Category Date Time Status CT abdomen pelvis w con Stat Cat Scan 03/02/25 10:[address] angio abdomen pelvis Stat Cat Scan 03/02/25 12:28 Completed Chest XR -- portable [XR chest portable] Stat Exams 03/02/25 10:03 Completed Acetone, Serum (Rapid) Stat Lab 03/02/25 09:15 Completed C-Reactive Protein Stat Lab 03/02/25 09:15 Completed Complete Blood Count Auto Diff AMLAB Lab 03/03/25 05:51 Completed Complete Blood Count Auto Diff AMLAB Lab 03/04/25 06:00 Ordered Complete Blood Count Auto Diff AMLAB Lab 03/05/25 06:00 Ordered Complete Blood Count Auto Diff AMLAB Lab 03/06/25 06:00 Ordered Complete Blood Count Auto Diff AMLAB Lab 03/07/25 06:00 Ordered Complete Blood Count Auto Diff Stat Lab 03/02/25 09:15 Completed Comprehensive Metabolic Panel AMLAB Lab 03/03/25 05:51 Completed Comprehensive Metabolic Panel AMLAB Lab 03/04/25 06:00 Ordered Comprehensive Metabolic Panel AMLAB Lab 03/05/25 06:00 Ordered Comprehensive Metabolic Panel AMLAB Lab 03/06/25 06:00 Ordered Comprehensive Metabolic Panel AMLAB Lab 03/07/25 06:00 Ordered Comprehensive Metabolic Panel Stat Lab 03/02/25 09:15 Completed Creatine Kinase Stat Lab 03/02/25 09:15 Completed D-Dimer Stat Lab 03/02/25 14:50 Completed Erythrocyte Sedimentation Rate Stat Lab 03/02/25 09:15 Completed Free T4 (Free Thyroxine) Stat Lab 03/02/25 09:15 Completed Full Resp Panel w/COVID ([facility]) Routine Lab 03/02/25 14:33 Completed Hemoglobin A1C Stat Lab 03/02/25 09:15 Completed Lactic Acid Follow Up (RFLX 1) Stat Lab 03/02/25 14:50 Completed Lactic Acid Stat Lab 03/02/25 10:35 Completed Magnesium AMLAB Lab 03/03/25 05:51 Completed Magnesium AMLAB Lab 03/04/25 06:00 Ordered Magnesium AMLAB Lab 03/05/25 06:00 Ordered Magnesium AMLAB Lab 03/06/25 06:00 Ordered Magnesium AMLAB Lab 03/07/25 06:00 Ordered Magnesium Stat Lab 03/02/25 16:00 Completed PHOS [Phosphorous] Stat Lab 03/02/25 16:00 Completed Phosphorous Stat Lab 03/02/25 09:15 Completed Procalcitonin Routine Lab 03/02/25 16:00 Completed Rapid PCR Covid and Flu A/B Stat Lab 03/02/25 14:33 Completed TSH [Thyroid Stimulating Hormone] Stat Lab 03/02/25 09:15 Completed Trop I [Troponin I] Stat Lab 03/02/25 09:15 Completed Troponin I Q3H Lab 03/02/25 18:00 Completed Troponin I Q3H Lab 03/02/25 21:13 Completed UDS [Drug Screen,Urine] Stat Lab 03/02/25 14:28 Completed Urinalysis and Microscopic Stat Lab 03/02/25 14:28 Completed Blood Culture Stat Micro 03/02/25 16:05 Received Venous Blood Gas Stat RT 03/02/25 10:35 Completed CA echo doppler complete Stat Y 03/02/25 14:53 Completed ECG Data Tracing #1: Independently interpreted by me rate is 100, rhythm is regular, axis is normal, no ST elevation in anatomical contiguous leads however patient has nonspecific ST changes in aVR V1, has T wave inversions in the lateral inferior leads. QTc 453. Medical Decision Narrative: patient is a 54-year-old female presenting to the emergency department for evaluation of nausea, vomiting and intolerance of p.o. food or fluids for 10 days. Patient is ill-appearing and her blood pressure is 182/123 on arrival, afebrile. Differential diagnosis includes sepsis, gastroenteritis, DKA, among other. Workup will be conducted with hematologic labs, specific imaging. Initial inventions include crystalloid bolus, analgesics, antibiotics. Initial workup reviewed by me hematologic labs are remarkable for white count was 9.7, VBG pH 7.49 pO2 55.5, CO2 30.5 lactic was 3, sodium is 138, potassium 3 which is being replaced IV potassium 10 mill equivalents at a time, chloride 83 BUN 35, creatinine 1.5. Patient's GFR was 36 glucose was 423 and lactate was 2.3. Patient's liver workup was normal. We are waiting for a troponin to result along with a D-dimer to result as patient blood pressure has been elevated in the 200s systolic. Patient admitted to chest feeling like her heart drops then comes back up then drops again. She has also been vomiting for 10 days straight. We did an EKG in order to give her droperidol and it showed LVH which was different than her previous EKG. I sent this to Dr. Fan who also said it was LVH. He wants us to start enalapril drip and admit patient. He also wants us to get an echo. Patient has been accepted via hospital medicine. Dr. Cuevas discussed this patient with Dr Maverick Cuevas MD: I was consulted by the VALENCIA, and we discussed the complexity of the problems being addressed. I approved the treatment and management plan for this patient's care in the emergency department, thus performing a substantive portion of the medical decision making. Patient had multiple complaints, she has had intractable vomiting over the last 10 days. Initially patient had hematologic labs which were remarkable for metabolic derangement consistent with vomiting including hyponatremia hypokalemia hypochloremia for which potassium was repleted, she has a hyperglycemia without evidence of DKA, metabolic alkalosis. Patient is getting appropriate aggressive crystalloid resuscitation has had multiple antiemetics and droperidol. Patient has dynamic T wave inversions on her EKG and upon further questioning patient states that she has had intermittent chest pain over the last 10 days. Given this we will add on troponin and D-dimer. CT of the abdomen pelvis had findings on the kidney for which differential necessitated CTA which was ordered and remarkable for no acute arterial pathology.. The case was discussed with cardiology prior to transition of care, ultimately patient will require admission for dynamic T wave inversions. She was hypertensive however after droperidol her blood pressure dropped to an acceptable level. I suspect significant afterload in the setting of multiple Valsalva's. Will start nipride if blood pressure up trends again. No significant differential blood pressures in upper extremities and D- dimer excludes pulmonary embolism per years criteria however I feel the patient is low risk for aortic dissection and CTA will be deferred given her history of contrast-induced nephropathy. Case was discussed with Dr. Temple regarding management, ultimately patient has intractable vomiting with metabolic derangement, chest pain with hypertensive emergency with dynamic EKG changes and the patient will be admitted for continued evaluation at this time. [employer] disclaimer Much of this encounter note is an electronic waitress spoken language to printed text. Electronic waitress of the spoken language may permit errors. Although I have reviewed the note, some errors may still exist. Critical Care <Gordy Cuevas MD - Last Filed: 03/03/25 11:53> Critical Care Time Critical Care Time: No
--- NOTE | 2025-03-02 10:03 | CT_ITS ---
FINAL REPORT TECHNIQUE: After the administration of oral and intravenous contrast, axial images were obtained through the abdomen and pelvis by computed tomography. The study was performed with techniques to keep radiation dose as low as reasonably achievable, (ALARA). Individual dose reduction techniques using automated exposure control or adjustment of mA and/or kV according to the patient's size were employed. CLINICAL HISTORY: abd pain, vomiting COMPARISON: 02/24/2025 FINDINGS: Abdomen: The lung bases are clear. There is a small to moderate hiatal hernia. The liver parenchyma is homogeneous. The gallbladder is surgically absent. The spleen, pancreas, and adrenals appear unremarkable. 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 There is hypoenhancement of the anterior and lateral aspects of the mid left kidney which appear similar to the prior study. The aorta is normal in caliber. There is no free fluid or adenopathy. Pelvis: There appear to be multiple appendicoliths within the appendix. The appendix is not enlarged or inflamed. Findings are well seen on image 90 of series 6. The urinary bladder is incompletely distended. The uterus is present. There is no free fluid or adenopathy. IMPRESSION: Stable hypoenhancing areas of the left kidney could be due to pyelonephritis or subacute ischemia. Correlate clinically. Findings are unchanged. Small appendicoliths within the appendix without associated inflammatory reaction. Reviewed, Interpreted and Dictated by Santos Hendrickson MD Transcribed by Ashanti Hernandez Authenticated and [facility]
[2025-03-02 10:12] LABS: Hematocrit 45.2 % (37.0-47.0); Hemoglobin 16.0 g/dL (12.2-16.2); Immature Granulocytes % 0.2 %; Mean Corpuscular HGB Conc 35.4 g/dL (31.8-35.4); Mean Corpuscular Hemoglobin 28.4 pg (27.0-31.2); Mean Corpuscular Volume 80.3 fl (81-99); Nucleated Red Blood Cells % 0 %; Platelet Count 324 K/mm3 (142-424); Red Blood Count 5.63 M/mm3 (4.20-5.40); Red Cell Distribution Width-SD 36.9 fL; White Blood Count 9.7 K/mm3 (4.8-10.8)
[2025-03-02 10:18] LABS: Alanine Aminotransferase 25 U/L (12-78); Albumin Level 3.5 g/dl (3.5-5.0); Albumin/Globulin Ratio 0.9 (1.1-1.8); Alkaline Phosphatase 101 U/L (38-126); Anion Gap 14.0 mEq/L (5-15); Aspartate Amino Transferase 36 U/L (14-36); Bilirubin,Total 1.3 mg/dl (0.2-1.3); Blood Urea Nitrogen 35 mg/dl (7-17); Calcium 8.8 mg/dl (8.4-10.2); Carbon Dioxide 36 mmol/L (22.0-30.0); Chloride 83 mmol/L (98-107); Creatine Kinase 33 U/L (30-135); Creatinine Clearance Estimated 42 mL/min (50-200); Creatinine,Serum 1.50 mg/dl (0.52-1.04); Estimated Glomerular Filt Rate 36 ml/min (>60); GFR (African American) 44 ML/MIN (>60); Globulin 3.7 g/dL (1.3-3.2); Sodium 130 mmol/L (136-145); Total Protein,Serum 7.2 g/dl (6.3-8.2)
[2025-03-02 10:19] LABS: Phosphorous 3.6 mg/dl (2.5-4.5)
[2025-03-02 10:25] LABS: C-Reactive Protein 3.9 mg/L (0-4)
[2025-03-02 10:26] LABS: Glucose 423 mg/dl (74-100); Potassium 3.0 mmoL/L (3.5-5.1)
[2025-03-02] MEDS: ONDANSETRON 4MG/2ML VIAL 4 MG IV ×2 (10:39→13:41)
[2025-03-02] MEDS: LACTATED RINGERS 1000ML 1,910 ML 955 ML IV (10:39)
[2025-03-02 10:41] LABS: VBG HCO3 29.3 mmol/L (23-30); VBG PCO2 39.1 mmol/L (35-51); VBG PH 7.49 mmol/L (7.31-7.41); VBG PO2 55.5 mmol/L (28-40)
[2025-03-02 10:44] LABS: Lactate Venous 3.0 mmol/L (0.4-2.0)
[2025-03-02] MEDS: SODIUM CHLORIDE 0.9% 10ML SYR (RAD ONLY) 10 ML IV ×2 (11:00→13:28)
[2025-03-02] MEDS: IOPAMIDOL-370 (76%);100ML BOTTLE 60 ML IV (11:00)
[2025-03-02 11:28] LABS: Acetone, Serum (Rapid) None Detected (None Detect)
--- NOTE | 2025-03-02 12:28 | CT_ITS ---
FINAL REPORT TECHNIQUE: Pre-and postcontrast images of the abdomen and pelvis were performed by computed tomography. Extensive 3-D reconstruction images were performed. A CTA was performed. This study was performed with techniques to keep radiation doses as low as reasonably achievable (ALARA). Individualized dose reduction techniques using automated exposure control or adjustment of mA and/or kV according to the patient''s size were employed. CLINICAL HISTORY: concern for renal ischemia versus pyelo COMPARISON: CT performed earlier today, CT performed 6 days prior FINDINGS: Abdomen: The lung bases are clear. There is a small to moderate hiatal hernia. The liver parenchyma is homogeneous. The gallbladder is surgically absent. The spleen, pancreas, and adrenals appear unremarkable. 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 There is hypoenhancement of the anterior and lateral aspects of the mid left kidney which appear similar to the prior study. The aorta is normal in caliber. There is no free fluid or adenopathy. Pelvis: There appear to be multiple appendicoliths within the appendix. The appendix is not enlarged or inflamed. Findings are well seen on image 90 of series 6. The urinary bladder is incompletely distended. The uterus is present. There is no free fluid or adenopathy. The abdominal aorta is proper caliber. The SMA, celiac axis, and ANGELINA are patent. There is no significant stenosis or calcification. The renal arteries are patent bilaterally. No embolic source is seen. IMPRESSION: No evidence of renal vascular hypertension or significant renal artery stenosis. Stable hypoenhancing areas of the left kidney could be due to pyelonephritis or subacute ischemia. Correlate clinically. Findings are unchanged. Small appendicoliths within the appendix without associated inflammatory reaction Reviewed, Interpreted and Dictated by Santos Hendrickson MD Transcribed by Lachelle Navarro Authenticated and [facility]
[2025-03-02] MEDS: 0.9 % SODIUM CHLORIDE 50 ML VIAL IV (13:27)
[2025-03-02] MEDS: IOPAMIDOL-370 (76%);100ML BOTTLE 80 ML IV (13:28)
--- NOTE | 2025-03-02 14:27 | ECG_ITS ---
APPROVED REPORT Exam: Resting ECG HR:100 bpm ECG Measurements Heart Rate 100 AXES OR 116 P 50 QRSd 98 QRS 55 QT 396 T 199 QTc 453 Conclusion SINUS TACHYCARDIA WITH SHORT OR INTERVAL LEFT VENTRICULAR HYPERTROPHY AND ST-T CHANGE [VOLTAGE CRITERIA PLUS ST/T ABNORMALITY] ABNORMAL ECG Nonspecific ST changes as well as diffuse T wave inversions in the lateral and inferior leads. Electronically signed by : ED BORGES, 03/02/2025 16:27:41
[2025-03-02 14:36] LABS: Microscopic, Urine URINE MICROSCOPIC (MICROSCOPIC)
[2025-03-02 14:36] LABS: Coronavirus 19, PCR Not Detected (NotDetected); Influenza A, PCR Not Detected (NotDetected); Influenza B, PCR Not Detected (NotDetected)
[2025-03-02] MEDS: droPERidol 5MG/2ML VIAL 2.5 MG IV (14:40)
[2025-03-02 14:44] LABS: Reflex Lactic Add Lactic Reflex
--- NOTE | 2025-03-02 14:53 | CA_ITS ---
APPROVED REPORT EXAM: Comprehensive 2D, Doppler, and color-flow Echocardiogram Key Person: Manuela Nelson, RCS, RVS Ht: 5 ft 4 in Wt: 140lbs BSA: 1.68 BP: 205/123 mmHg Indications: Nausea and vomiting, LVH, CAD-CABG 2D Dimensions IVSd 1.41 cm F: 0.6-1.0 LVEF (Visual) 57.80 % PWd 1.26 cm F: 0.6 - 1.0 LA Volume 38.00 mL LVDd 4.46 cm F: 3.9 - 5.3 LA Volume Index 22.098451 mL/m2 (M/F) 16-34 LVDs 3.11 cm F: 2.2 - 3.5 Left Atrium 3.20 cm F: 2.7 - 3.8 M-Mode Dimensions LA Diam 2.86 cm (1.9-4.0) EPSs 0.91 cm TAPSE 0.27 (<1.7) LV Diastology E Decel Time 80 (160-240 msec) E/A Ratio 0.54 MED A' 6.00 cm/s LAT A' 7.30 cm/s Aortic Valve RUSTY Index 0.90 cm2/m2 AoV Peak Daniel. 123.0 (50-130 cm/s) AI PHT 498.00 ms AO Peak GR. 6.00 mmHg AO Mean GR. 3.00 (<5 mmHg) AO VTI 18.1 (18-25 cm) RUSTY (VTI) 1.55 (2.5-4.5 cm2) Mitral Valve MV A Velocity 115.0 (40-130 cm/s) E/A Ratio 0.54 Pulmonary Valve PV Peak Velocity 96.0 (50-150 cm/s) Left Ventricle The left ventricle is normal size. Left ventricular systolic function is mildly reduced. There is increased left ventricular wall thickness. There is a severe hypokinesis of the septal, inferoseptal, and anteroseptal LV cloud. Grade 1 diastolic dysfunction is present. LVEF is 40-45% Right Ventricle The right ventricle is normal size. The right ventricular systolic function is normal. Atria The left atrium size is normal. The right atrium size is normal. There is no color Doppler evidence of interatrial shunt. Aortic Valve The aortic valve is mildly thickened. There is no hemodynamically significant aortic valvular stenosis. Mild aortic regurgitation is present. Mitral Valve The mitral valve is normal in structure. No evidence of mitral valve stenosis. Trace mitral regurgitation is present. Tricuspid Valve The tricuspid valve leaflets are thin and pliable. Trace tricuspid regurgitation. There is insufficient TR jet to estimate RVSP. Pulmonic Valve The pulmonary valve is grossly normal in structure. Trace pulmonic valve regurgitation is present. Great Vessels The aortic root is normal in size. IVC is normal in size and collapses >50% with inspiration. Pericardium There is no pericardial effusion. Other Information Study Quality: Technically Difficult Conclusion Mildly reduced LV systolic function (LVEF 40-45%) Severe hypokinesis of the septal, inferoseptal, and anteroseptal LV cloud. Mild AI. Electronically signed by : Tomasa Ortiz MD 03/02/2025 22:59:50
[2025-03-02 14:55] LABS: Bilirubin,Urine Negative (Negative); Color,Urine YELLOW (Yellow); Glucose,Urine (UA) 3+ (Negative); Ketones,Urine 1+ (Negative); Leukocyte Esterase,Urine Negative (Negative); PH,Urine 8.0 (5.0-8.5); Protein,Urine 3+ (Negative); Specific Gravity, Urine 1.015 (1.005-1.030); Urobilinogen,Urine 1.0 EU/dl (0.2)
[2025-03-02 14:58] LABS: Troponin I 0.05 ng/ml (0.00-0.034)
[2025-03-02 15:08] LABS: Lactic Acid Follow Up (RFLX 1) 2.1 mmol/L (0.7-2.1)
[2025-03-02 15:10] LABS: D-Dimer 0.92 ug/mL (0.0-0.5)
--- NOTE | 2025-03-02 15:19 | [facility].PHAINT1 ---
Pharmacy Intervention Comments: MEDICATION RECONCILIATION COMPLETED ON PATIENT USING EXTERNAL FILL HISTORY FROM PHARMACY AND LIST FROM PCP OFFICE. -ELMER NEAL, [facility]
[2025-03-02 15:22] LABS: Bacteria,Urine Trace /lpf
--- NOTE | 2025-03-02 15:46 | EXP.HP ---
History of Present Illness *Admission Date: 03/02/25 *Reason for visit:: Nausea/vomiting, chest pressure *History of present illness: Janay Head is a 54-year-old female with a medical history significant for CABG in 2020, type 2 diabetes, GERD, anxiety/depression, CVA with residual right-sided weakness who presented to the ED with intractable nausea/vomiting for the past 10 days with intermittent chest pressure. Patient states she was feeling well up until 10 days ago when she began to have poor oral tolerance due to nausea and then vomiting which has gotten progressively worse over the past 10 days. She denies focal abdominal symptoms/pain, changes in diet, changes in medications, fever/chills, shortness of breath, urinary symptoms but does endorse intermittent diarrhea and occasional chest thumping . On medication review patient is on Ozempic 0.25 mg weekly for the past 4 months, patient denies recent dose change. My evaluation, patient looked more comfortable without nausea/vomiting and lying in bed. Workup in the ED significant for troponin 0.05, magnesium 1.4, glucose 423, UDS negative, UA unremarkable other than proteinuria, negative for influenza, COVID-19, lactic acid 2.3, potassium 3.0, magnesium 1.4, CT abdomen/pelvis revealed left kidney hypoenhancing areas which could be pyelonephritis, subacute ischemia, versus other. Additionally, patient's blood pressures were very elevated 200s over 100s. Dr. Fan recommended nitroprusside drip, blood pressures improving to 107/80 upon arrival to the ICU. CXR without acute abnormalities. She was given LR 1.9 L, Zofran, potassium, droperidol. Given these findings, ED provider discussed case with me and said to admit patient for intractable nausea/vomiting, electrolyte abnormalities, NSTEMI. [facility] Disclaimer: The information contained in this section may have been updated after the patient was seen, as this information can be updated by other users. 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) CKD (chronic kidney disease) stage 4, GFR 15-29 ml/min Breast cancer screening Colon cancer screening Diabetic peripheral neuropathy Kidney insufficiency HLD (hyperlipidemia) HTN (hypertension) WARREN (dyspnea on exertion) CAD (coronary artery disease) PTSD (post-traumatic stress disorder) History of type 1 diabetes mellitus Gastroparesis diabeticorum History of gastroesophageal reflux (GERD) History of stroke Cholecystectomy planned Hypotension Angina pectoris Surgical History , REMNANT SORTER) History of heart surgery Hx of appendectomy Social History , REMNANT SORTER) Smoking Status: Never smoker alcohol intake: never substance use type: denies use current occupational status: unemployed Travel in the last 8 weeks?: None Have you lived/traveled outside US in past 30 days?: No Contact w/someone who lives/traveled outside US past 30 days?: No Exposure to someone with infectious disease in past 14 days?: No Do you have a fever (greater than 100.4 F or 38 C)?: No Have you tested positive for COVID-19?: No Exposed to someone with COVID-19 in past 14 days?: No Do you have a sore throat?: No Do you have a cough?: No Do you have any weakness?: No Do you have any diarrhea?: No Are you experiencing any unusual bleeding?: No Do you have any muscle aches/pain?: No Do you have any abdominal pain?: No Are you experiencing loss of taste or smell?: No Other 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 Have you received the Flu Vaccine for this season: No Have you received the Pneumonia Vaccine: No Meds Home Medications and Allergies Home Medications ?Medication ?Instructions ?Recorded ?Confirmed ?Type 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,analog device designer,cont #1 ea 06/01/24 02/22/25 Rx (Dexcom G7 Airport Screener) clopidogrel 75 mg tablet (Plavix) 75 mg PO DAILY #90 tabs 06/03/24 03/02/25 Rx lancets 28 gauge (FreeStyle #100 ea 06/03/24 02/22/25 History Lancets) empagliflozin 10 mg tablet 10 mg PO DAILY #90 tabs 07/20/24 03/02/25 Rx (Jardiance) insulin pump cartridge,auto #1 ea 09/10/24 02/22/25 History dose,BT,G6/G7 with controller subcutaneous (Omnipod 5 G6-G7 Intro Kit(Gen 5) subcutaneous cartridge and controller) insulin pump cart,auto,BT,G6/7 #5 ea 10/16/24 02/22/25 Rx (Omnipod 5 G6-G7 Pods (Gen 5) subcutaneous cartridge) rosuvastatin 10 mg tablet (Crestor) 10 mg PO DAILY #30 tabs 12/08/24 03/02/25 Rx inclisiran 284 mg/1.5 mL 284 mg (1.5 mL) SQ [id number] 2 12/14/24 03/02/25 Rx subcutaneous syringe (Leqvio) doses #1.5 mL omeprazole 20 mg capsule,delayed 20 mg PO DAILY #30 caps 12/14/24 03/02/25 Rx release 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 sensor (Dexcom G7 #9 ea 12/25/24 02/22/25 Rx Sensor device) gabapentin 600 mg tablet 600 mg PO TID #90 tabs 02/12/25 03/02/25 Rx semaglutide 0.25 mg or 0.5 mg (2 0.25 mg (0.368 mL) SQ WEEKLY #3 mL 02/12/25 03/02/25 Rx mg/3 mL) subcutaneous pen injector (Ozempic) estradiol 0.01% (0.1 mg/gram) 1 appful vaginal DIRECTED 03/02/25 03/02/25 History vaginal cream (Estrace) insulin lispro 100 unit/mL 1 unit SQ DIRECTED 03/02/25 03/02/25 History subcutaneous solution (Admelog U-100 Insulin lispro) ondansetron 4 mg disintegrating 4 mg PO Q8HP PRN nausea and 03/02/25 03/02/25 History tablet vomiting sertraline 50 mg tablet 50 mg PO DAILY 03/02/25 03/02/25 History New Prescriptions to Start Prescriptions: Allergies Allergy/AdvReac Type Severity Reaction Status Date / Time atorvastatin Allergy Severe lowers Verified 02/22/25 10:57 blood pressure aspirin (ASPIRIN) Allergy Intermediate I-HIVES Verified 02/22/25 10:57 latex (LATEX) Allergy Unknown RASH, HIVES Verified 02/22/25 10:57 midodrine AdvReac Severe Unknown Verified 02/22/25 10:57 allergy reaction Exam Data for Last 24 hours Vital signs and Labs for Last 24 Hours: Temp Pulse Resp BP Pulse Ox O2 Del Method 97.5 F L 100 H 20 161/93 H 95 Room Air 03/02/25 09:27 03/02/25 14:00 03/02/25 09:27 03/02/25 15:00 03/02/25 14:00 03/02/25 09:30 Laboratory Results - last 24 hr 03/02/25 09:15: WBC 9.7, RBC 5.63 H, Hgb 16.0, Hct 45.2, MCV 80.3 L, MCH 28.4, MCHC 35.4, RDW 12.8, Plt Count 324, MPV 10.8 H, Neut % (Auto) 75.4, Lymph % (Auto) 17.7, [place] % (Auto) 5.8, Eos % (Auto) 0.5, Baso % (Auto) 0.4, Neut # (Auto) 7.3, Lymph # (Auto) 1.7, [place] # (Auto) 0.6, Eos # (Auto) 0.1, Baso # (Auto) 0.0, ESR 14, Sodium 130 L, Potassium 3.0 L, Chloride 83 L, Carbon Dioxide 36 H, Anion Gap 14.0, BUN 35 H, Creatinine 1.50 H, Estimated Creat Clear 42, Estimated GFR 36 L, Est GFR ( Amer) 44 L, Glucose 423 H*, Calcium 8.8, Phosphorus 3.6, Total Bilirubin 1.3, AST 36, ALT 25, Alkaline Phosphatase 101, Total Creatine Kinase 33, Troponin I 0.05 H, C-Reactive Protein 3.9, Total Protein 7.2, Albumin 3.5, Globulin 3.7 H, Albumin/Globulin Ratio 0.9 L, Acetone Level None detected 03/02/25 10:35: VBG pH 7.49 H, VBG pCO2 39.1, VBG pO2 55.5 H, VBG HCO3 29.3, VBG Total CO2 30.5 H, VBG O2 Saturation 90.0 H, VBG Base Excess 6.0 H, VBG Lactic Acid 3.0 H, Lactate 2.3 H 03/02/25 14:28: Urine Color Yellow, Urine Appearance Clear, Urine pH 8.0, Ur Specific [place] 1.015, Urine Protein 3+ A, Urine Glucose (UA) 3+, Urine Ketones 1+, Urine Blood Trace-l, Urine Nitrate Negative, Urine Bilirubin Negative, Urine Urobilinogen 1.0, Ur Leukocyte Esterase Negative, Urine RBC None, Urine WBC 5-10, Ur Squamous Epith Cells 3-5, Urine Bacteria Trace 03/02/25 14:33: SARS-CoV-2 (PCR) Not detected, Influenza A Untype (PCR) Not detected, Influenza Type B (PCR) Not detected 03/02/25 14:50: D-Dimer 0.92 H, Lactate 2.1 I & O for Last 24 hours: Intake & Output 02/27/25 02/28/25 03/01/25 03/02/25 23:59 23:59 23:59 23:59 Intake Total 2109 Balance 2109 Weight 63.503 kg Constitutional Constitutional: mild distress and chronically ill appearing *Routine HEENT Exam Head: Present normocephalic Eye: Present EOMI and PERRL ENT: Present mucous membranes moist *Routine Neck Exam Neck: Present supple; Absent lymphadenopathy *Routine Respiratory Exam Respiratory: Present CTA bilaterally *Routine Cardiovascular Exam Cardiovascular: Present RRR *Routine Abdominal Exam Abdominal: Present soft and normoactive bowel sounds; Absent tenderness *Routine Rectal Exam Rectal:: deferred *Routine Genitalia Exam Genitalia:: deferred *Routine Extremities Exam Extremities: Absent cyanosis, clubbing or edema Comments: Mild generalized abdominal tenderness to palpation. No peritoneal signs. *Routine Skin Exam Skin: Present warm; Absent rash *Routine Neurological Exam Neurological: Present alert and oriented X3 Assessment and Plan *Assessment and plan (1) Nausea & vomiting: Status: Acute Qualifiers: Vomiting type: unspecified Qualified Code(s): R11.2 - Nausea with vomiting, unspecified Category: Medical Code(s): R11.2 - Nausea with vomiting, unspecified Plan Janay Head is a 54-year-old female with a medical history significant for CABG in 2019, type 2 diabetes, GERD, anxiety/depression, CVA with residual right-sided weakness who presented to the ED with intractable nausea/vomiting for the past 10 days with intermittent chest pressure. Patient states she was feeling well up until 10 days ago when she began to have poor oral tolerance due to nausea and then vomiting which has gotten progressively worse over the past 10 days. She denies focal abdominal symptoms/pain, changes in diet, changes in medications, fever/chills, shortness of breath, urinary symptoms but does endorse intermittent diarrhea and occasional chest thumping . On medication review patient is on Ozempic 0.25 mg weekly for the past 4 months, patient denies recent dose change. My evaluation, patient looked more comfortable without nausea/vomiting and lying in bed. Workup in the ED significant for troponin 0.05, magnesium 1.4, glucose 423, UDS negative, UA unremarkable other than proteinuria, negative for influenza, COVID-19, lactic acid 2.3, potassium 3.0, magnesium 1.4, CTA abdomen/pelvis revealed left kidney hypoenhancing areas which could be pyelonephritis, subacute ischemia, versus other. Additionally, patient's blood pressures were very elevated 200s over 100s. Dr. Fan recommended nitroprusside drip, blood pressures improving to 107/80 upon arrival to the ICU. CXR without acute abnormalities. She was given LR 1.9 L, Zofran, potassium, droperidol. Given these findings, ED provider discussed case with me and said to admit patient for intractable nausea/vomiting, electrolyte abnormalities, NSTEMI. #Intractable nausea/vomiting #Hypokalemia #Hypomagnesemia #Lactic acidosis ? Presented with progressively worsening intractable nausea/vomiting over the past 10 days without clear etiology. No recent changes in diet, medications, no focal abdominal symptoms. ? Overall, workup largely unremarkable. Free T4 is slightly elevated 2.85, but TSH normal suggesting false positive elevated free T4. See below. ? CTA abdomen/pelvis revealed hypoenhancing left kidney areas which could be pyelonephritis, subacute ischemia, versus other. However, no evidence of pyelonephritis, and no renal artery stenosis. UA unremarkable. Lactic acid improved from 2.3-2.1 with fluid resuscitation. ? Patient is a diabetic, A1c 8.3%. Some concern for gastroparesis. ? Patient is also on Ozempic for the past 4 months, though on a low dose of 0.25 mg weekly. Will advise hold for now. ? Follow-up gastric emptying study in the morning. N.p.o. at midnight. ? Follow-up full respiratory panel, blood cultures, procalcitonin. ? Started IV Protonix 40 mg nightly. ? GI consulted, pending further recommendations. ? IV promethazine, Reglan as needed for nausea. #NSTEMI, likely type II #History of CABG 2019 #History of CVA with right-sided residual weakness ? Presented with symptoms of chest thumping intermittently over the past 10 days in the setting of hypertensive emergency 200s over 100s. ? Troponin 0.05, EKG without acute ischemic changes. Will continue to trend troponins, EKG. ? [facility] and November 2024 did not show critical occlusive disease. ? Blood pressures 107/80 upon arrival to the ICU, nitroprusside drip stopped. ? Started propranolol 10 mg 3 times daily for possible hyperthyroidism, see below. Elevated blood pressures are new for patient, they were normal in November. Elevated pressures are more likely reactive at this time. Continue to monitor. ? Continue home Plavix 75 mg daily. ? Follow-up ECHO. ? Cardiology consulted, pending further recommendation. ? Continuous cardiac telemetry. #Elevated free T4 ? Free T4 slightly elevated 2.85, TSH normal. Likely false positive at this time due to normal TSH, but cannot rule out hyperthyroidism in the setting of nausea/vomiting. Will inquire if patient takes biotin in the morning. ? Started propranolol 10 mg 3 times daily, IV Solu-Medrol 60 mg one-time dose. ? Follow-up thyroid antibodies. ? Endocrinology consulted, pending further recommendations. #GERD ? IV Protonix 40 mg as above. #Anxiety/depression ? Hold home sertraline in the setting of nausea/vomiting. Resume once appropriate. Full code DVT prophylaxis: IPC's
[2025-03-02] MEDS: NITROPRUSSIDE SODIUM 50 MG in DEXTROSE 5 % IN WATER 250 ML 5.76 MG IV (16:02)
[2025-03-02 16:08] LABS: Amphetamine/Metha Screen,Urine Negative ng/ml (<1000)
[2025-03-02 16:10] LABS: Phencyclidine Screen,Urine Negative ng/ml (<25)
[2025-03-02 16:26] LABS: Barbiturates Screen,Urine Negative ng/ml (<200)
[2025-03-02 16:27] LABS: Benzodiazepines Screen,Urine Negative ng/ml (<200); Opiate Screen,Urine Negative ng/ml (<300)
[2025-03-02 16:29] LABS: Methadone Screen,Urine Negative ng/ml (<300)
--- NOTE | 2025-03-02 16:35 | PC.NURSE ---
report given to ZAK Gilliland
[2025-03-02 16:39] LABS: Phosphorous 4.2 mg/dl (2.5-4.5)
[2025-03-02 16:40] LABS: Magnesium 1.4 mg/dl (1.6-2.3)
[2025-03-02 16:43] LABS: Free T4 (Free Thyroxine) 2.85 ng/dl (0.78-2.19)
[2025-03-02 16:45] LABS: Adenovirus,PCR Not Detected (NotDetected); Chlamydophila Pneumoniae, PCR Not Detected (NotDetected); Coronavirus 19, PCR Not Detected (NotDetected); Coronovirus HKU1,PCR Not Detected (NotDetected); Influenza A, PCR Not Detected (NotDetected); Influenza AH1, 2009 Not Detected (NotDetected); Influenza AH1, PCR Not Detected (NotDetected); Influenza AH3,PCR Not Detected (NotDetected); Influenza B, PCR Not Detected (NotDetected); Mycoplasma Pneumoniae, PCR Not Detected (NotDetected); Parainfluenza 1, PCR Not Detected (NotDetected); Parainfluenza 2, PCR Not Detected (NotDetected); Parainfluenza 3, PCR Not Detected (NotDetected); Parainfluenza 4, PCR Not Detected (NotDetected)
[2025-03-02 16:53] LABS: Reflex Lactic (2 hrs) Add Lactic Reflex
[2025-03-02 16:55] LABS: Thyroid Stimulating Hormone 3.04 uIU/mL (0.465-4.68)
--- NOTE | 2025-03-02 17:00 | PC.NURSE ---
Nitroprusside IV Drip stopped at this time. aware. Continuation of care plan.
--- NOTE | 2025-03-02 17:00 | PC.NURSE ---
Patient arrived via stretcher from the ED to the unit.
[2025-03-02] MEDS: METHYLPREDNISOLONE SOD SUCC 40MG VIAL 60 MG IV (17:27)
[2025-03-02] MEDS: LACTATED RINGERS 1000ML 1,000 ML 100 ML IV (17:31)
[2025-03-02] MEDS: MAGNESIUM SULFATE IN WATER 2 GM/50 ML PIGGYBACK IV ×3 (17:34→20:49)
[2025-03-02 17:44] LABS: Procalcitonin 0.133 ng/mL (0.0-2.0)
[2025-03-02 17:47] LABS: POC Glucose,Bedside 365 gm/dL (70-110)
[2025-03-02] MEDS: humaLOG 100 UNITS/ML 10ML VIAL (SSI) SUBCUT ×2 (17:49→20:02)
[2025-03-02 18:29] LABS: Lactic Acid Follow up (RFLX 2) 2.4 mmol/L (0.7-2.1)
[2025-03-02] MEDS: PROPRANOLOL 20MG TAB 10 MG PO ×2 (18:30→20:01)
[2025-03-02 18:34] LABS: Troponin I 0.12 ng/ml (0.00-0.034)
[2025-03-02 18:53] LABS: Hemoglobin A1C 7.5 % (4.0-6.0)
--- NOTE | 2025-03-02 18:53 | PC.NURSE ---
SCD's placed on pt
[2025-03-02 19:45] LABS: POC Glucose,Bedside 369 gm/dL (70-110)
[2025-03-02] MEDS: GABAPENTIN 600MG TABLET 600 MG PO (20:02)
[2025-03-02] MEDS: PANTOPRAZOLE 40MG VIAL 40 MG IV (20:02)
[2025-03-02] MEDS: METOCLOPRAMIDE HCL 10MG/2ML VIAL 10 MG IVP (21:22)
[2025-03-02 21:51] LABS: Troponin I 0.14 ng/ml (0.00-0.034)
[2025-03-02] MEDS: LIDOCAINE 5% TRANSDERMAL PATCH 1 EACH TD (23:04)
--- NOTE | 2025-03-02 23:25 | PC.NURSE ---
Patient refused for CRE swab to be preformed. Patient was educated on importance of swab and still refused at this time. Veronika Salgado RN aware.
[2025-03-03] VITALS (20 sets, daily range): BP systolic 107–164; BP diastolic 59–98; PULSE 64–89; RESP 9–19; TEMP 36.3–36.9; O2SAT 90–100; BMI 26.0
[2025-03-03] MEDS: LACTATED RINGERS 1000ML 1,000 ML 100 ML IV ×2 (03:29→13:24)
[2025-03-03] MEDS: METOCLOPRAMIDE HCL 10MG/2ML VIAL 10 MG IVP (04:43)
[2025-03-03 05:55] LABS: POC Glucose,Bedside 216 gm/dL (70-110)
[2025-03-03] MEDS: humaLOG 100 UNITS/ML 10ML VIAL (SSI) SUBCUT ×4 (06:13→20:35)
[2025-03-03 06:31] LABS: Alanine Aminotransferase 14 U/L (12-78); Albumin Level 3.0 g/dl (3.5-5.0); Albumin/Globulin Ratio 0.8 (1.1-1.8); Alkaline Phosphatase 80 U/L (38-126); Anion Gap 11.2 mEq/L (5-15); Aspartate Amino Transferase 24 U/L (14-36); Bilirubin,Total 0.8 mg/dl (0.2-1.3); Blood Urea Nitrogen 37 mg/dl (7-17); Calcium 8.5 mg/dl (8.4-10.2); Carbon Dioxide 34 mmol/L (22.0-30.0); Chloride 86 mmol/L (98-107); Creatinine Clearance Estimated 35 mL/min (50-200); Creatinine,Serum 2.00 mg/dl (0.52-1.04); Estimated Glomerular Filt Rate 26 ml/min (>60); GFR (African American) 31 ML/MIN (>60); Globulin 3.8 g/dL (1.3-3.2); Glucose 220 mg/dl (74-100); Magnesium 3.3 mg/dl (1.6-2.3); Potassium 3.2 mmoL/L (3.5-5.1); Sodium 128 mmol/L (136-145); Total Protein,Serum 6.8 g/dl (6.3-8.2)
[2025-03-03 06:53] LABS: Hematocrit 42.0 % (37.0-47.0); Immature Granulocytes % 0.4 %; Mean Corpuscular HGB Conc 34.0 g/dL (31.8-35.4); Mean Corpuscular Hemoglobin 28.0 pg (27.0-31.2); Mean Corpuscular Volume 82.2 fl (81-99); Nucleated Red Blood Cells % 0 %; Platelet Count 247 K/mm3 (142-424); Red Blood Count 5.11 M/mm3 (4.20-5.40); Red Cell Distribution Width-SD 38.9 fL; White Blood Count 7.8 K/mm3 (4.8-10.8)
[2025-03-03 07:10] LABS: Hemoglobin 14.3 g/dL (12.2-16.2)
[2025-03-03 07:19] LABS: Free Thyroxine Index 4.6 ug/dL (5.93-13.13); T4 (Thyroxine) 9.3 ug/dl (5.53-11.0); Triiodothryronine (T3) Uptake 49 % (23.5-40.5)
[2025-03-03 07:33] LABS: Thyroid Stimulating Hormone 1.85 uIU/mL (0.465-4.68)
[2025-03-03] MEDS: PROMETHAZINE HCL 25MG/ML 1ML VIAL 25 MG IV (08:41)
[2025-03-03 09:02] LABS: NT Pro Brain Natriuretic Pep. 5930 pg/mL (0-125)
[2025-03-03] MEDS: POTASSIUM CHLORIDE 20MEQ TAB 40 MEQ PO ×2 (09:39→12:50)
[2025-03-03] MEDS: PROPRANOLOL 20MG TAB 10 MG PO ×2 (09:39→20:26)
[2025-03-03] MEDS: GABAPENTIN 600MG TABLET 600 MG PO ×2 (09:40→20:26)
[2025-03-03] MEDS: CLOPIDOGREL 75MG TAB 75 MG PO (09:40)
--- NOTE | 2025-03-03 09:57 | ECG_ITS ---
APPROVED REPORT Exam: Resting ECG HR:79 bpm ECG Measurements Heart Rate 79 AXES AR 145 P 63 QRSd 100 QRS 16 QT 479 T 193 QTc [address] DEVIATION AND MARKED T-WAVE ABNORMALITY, CONSIDER ANTEROLATERAL ISCHEMIA [-0.5+ mV T-WAVE IN I/aVL/V3-V6] ST DEVIATION AND MODERATE T-WAVE ABNORMALITY, CONSIDER INFERIOR ISCHEMIA [-0.1+ mV T-WAVE IN II/aVF] ABNORMAL ECG UNCONFIRMED REPORT Electronically signed by : Gerry Hooks MD 03/04/2025 16:07:08
--- NOTE | 2025-03-03 10:37 | PC.NURSE ---
Patient complains of numbness and tingling of lips and tongue. 1040 notified. 1041 Patient has right sided facial drooping at this time. NIH scale completed. 1042 at bedside. Patients vitals stable. Patients blood sugar of 291. 1049 Stroke alert called. Manual BP obtained. Patients blood pressure of 110/64, HR of 79, Oxygen saturation of 95% RA. [address] by Content Designer. Continuation of care plan.
--- NOTE | 2025-03-03 10:46 | CT_ITS ---
FINAL REPORT TECHNIQUE: Axial CT images were performed through the head. Coronal reformatted images were submitted. This study was performed with techniques to keep radiation doses as low as reasonably achievable (ALARA). Individualized dose reduction techniques using automated exposure control or adjustment of mA and/or kV according to the patient's size were employed. CLINICAL HISTORY: left arm weakness, slurring speech STROKE ALERT COMPARISON: 02/18/2025 FINDINGS: The ventricles are normal in size. There is no evidence of hemorrhage. There is no mass or edema identified. There is no abnormal extra-axial fluid seen. The sinuses are well aerated. IMPRESSION: No acute intracranial process. Reviewed, Interpreted and Dictated by Santos Hendrickson MD Transcribed by Lily Agudelo Authenticated and . [facility]
--- NOTE | 2025-03-03 10:57 | CT_ITS ---
FINAL REPORT TECHNIQUE: The patient was injected with IV contrast. Axial images were obtained through the chest in a PE protocol. 3-D reconstruction images were also performed. Individualized dose reduction techniques using automated exposure control or adjustment of the MA and/or KV according to patient's size were employed. CLINICAL HISTORY: chest pain, htn, left arm weakness FINDINGS: Mediastinal vasculature is adequately opacified. No pulmonary artery filling defects are identified to suggest PE. There is no aortic dissection. There is mucosal thickening of the distal esophagus. There is no axillary adenopathy. There is no hilar or mediastinal adenopathy. The heart size is normal. There is no pericardial or pleural effusion. No suspicious infiltrate or nodule is identified. There is scarring at the left base. The kidneys demonstrate a lobular margin and heterogeneous enhancement of uncertain significance but this is incompletely visualized. IMPRESSION: No pulmonary embolus or dissection. Mucosal thickening of the distal esophagus, may be related to esophagitis. Esophageal mass is not entirely excluded, consider EGD. Reviewed, Interpreted and Dictated by Santos Hendrickson MD Transcribed by Lily Agudelo Authenticated and [facility]
[2025-03-03 11:03] LABS: POC Glucose,Bedside 291 gm/dL (70-110)
[2025-03-03 11:21] LABS: Troponin I 0.13 ng/ml (0.00-0.034)
[2025-03-03] MEDS: 0.9 % SODIUM CHLORIDE 50 ML VIAL IV (11:39)
[2025-03-03] MEDS: IOPAMIDOL-370 (76%);100ML BOTTLE 90 ML IV (11:39)
--- OUTSIDE RECORDS SUMMARY | 2025-03-03 12:32 | XMS_ITS | Clinical Summary ---
Author Organization [facility] Address [address] [place] [address] Care Team Providers Care Veterinary Pharmacologist Name Role Phone Reij Velazquez Primary Care Provider [phone] Abhijeet Espinoza MD Unavailable [phone] Allergies Active Allergy Reactions Criticality Noted Date [...] Description 03/26/2025 10:00 AM EST Office Visit [facility] [address] [place]SE [place]UZ [id number] Noé Kinsey MD [address] [place] [id number] Health Maintenance Due Date Last Done [...] 2) 2019 [facility]-Breast Cancer Screening 01/27/2021 01/27/2019 [id number] Vaccine (1 - 20 - season) 2025 [...] femaleDate of Service: 01/27/2019 eferring Phy:Thelma ValerioAccount: [id number] Verified By: Caitlyn Frazier M.D. on 01/28/2019 [...] on Jan 28 2019 3:57P Transcribed by: [facility] on Jan 28 2019 3:57P Dictated by: CAITLYN FRAZIER M.D. on Jan 28 2019 3:57P Patient Name:Janay Ellis : 1970 Age: 48 Gender: femaleDate of Service: 01/27/2019 eferring Phy:Thelma ValerioAccount: [id number] Thelma Valerio , FINAL REPORT PROCEDURE: Tomosynthesis [...] on Jan 28 2019 3:57P Transcribed by: [facility] on Jan 28 2019 3:57P Dictated by: CAITLYN FRAZIER M.D. on Jan 28 2019 3:57P Patient Name:Janay Ellis : 1970 Age: 48 Gender: femaleDate of Service:01/27/2019 eferring Phy:Thelma ValerioAccount: [id number] Thelma Valerio , FINAL REPORT PROCEDURE: Tomosynthesis [...] Gender: femaleDate of Service:01/27/2019 eferring Phy:Thelma ValerioAccount: [id number] Verified By: Caitlyn Frazier M.D. on 01/28/2019 at 03:52:08 PM Page 2 of 2 [facility] Provider IMG BI PROCEDURES Final Resu lt [...] Recently Relevant to Health Maintenance Insurance [employer] [facility] MEDICAID Care Teams Veterinary Pharmacologist Relationship Specialty Start Date End Date Reji Velazquez DO [address] [place] [id number] PCP - General 07/28/24 Abhijeet Espinoza MD [address] [place] [address] 07/28/24
--- OUTSIDE RECORDS SUMMARY | 2025-03-03 12:32 | XMS_ITS | Clinical Summary ---
Author Organization [facility] Address [address] [place] [address] Phone Care Team Providers Care Real Estate Representative Name Role Phone Mario Walls MD Unavailable [phone] Allergies Active Allergy Reactions Criticality Noted [...] U-100 0.3 mL 31 gauge x 1564 [facility] SyringeIndicatio ns:Dyslipidemia associated with type 2 diabetes mellitus (HCC) Use as directed to inject insulin. E11.65 100 Each 12/15/19 23 Active Insulin [place], Disposable, (NICOLASA PEN NEEDLE) 32 gauge x 532 [facility] NeedleIndication s:Dyslipidemia associated with type 2 diabetes mellitus (HCC) Use with insulin 4 times daily 400 Each 1 12/18/19 23 Active Blood-Glucose Meter (FREESTYLE LITE METER) [facility] KitIndications:T ype 2 diabetes mellitus with stage 3a chronic kidney disease, with long-term current use of insulin ([facility]) 1 Kit by [facility].(Non-Drug; Combo Route) route 3 times daily. 1 Kit 05/29/19 24 Active Blood Sugar Diagnostic (FREESTYLE TEST) [facility] StripIndications :Type 2 diabetes mellitus with stage 3a chronic kidney disease, with long-term current use of insulin ([facility]) 1 Strip by [facility].(Non-Drug; Combo Route) route 3 times daily. 100 Each 11 05/29/19 24 Active Lancets [facility] MiscIndications: Type 2 diabetes mellitus with stage 3a chronic kidney disease, with long-term current use of insulin ([facility]) check FSBS 3 times a day or [...] 4 07/01/19 24 Active Blood Pressure Monitor [facility] KitIndications:B lood pressure instability,Orth ostatic hypotension,Esse ntial hypertension Check and record blood pressure daily and also prn with any feelings of lightheadedness and syncope 1 Kit 07/11/19 24 Active Blood-Glucose Sensor (DEXCOM G7 SENSOR) [facility] DeviceIndication s:Dyslipidemia associated with type 2 diabetes mellitus (HCC) 1 Each by [facility].(Non-Drug; Combo Route) route every 10 days. CHNAGE [...] UTI 11/09/2022 Coronary artery disease invo lving [place] coronary artery of [place] heart with angina pectoris 10/02/2022 Orthostatic hypotension [...] Glomerulosclerosis ) Plan- -Checking MRI with IV [id number] further evaluate lesions seen on both kidneys. [...] to GI Healthcare maintenance 09/27/2021 Overview (09/27/2021): SCHOOL CLERK: Needs to establish SCHOOL CLERK care and make an appointment soon. Referral Given for [facility]. 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 Checking level Hyperuricemia 09/25/2021 History of CVA (cerebrovascular accident) 2020 Assessment & Plan (09/27/2021 8:01 PM EDT): Sees neurology. No residual deficits Coronary artery disease invo lving [place] coronary artery of [place] heart without angina pectoris 04/03/2021 Type 2 [...] 02/13/2016 N/A Surgeon: Jailyn Vieira MD; Location: [facility] END[facility]COPY; Service: Endoscopy COLONOSCOPY CARDIAC [...] extreme N/V Coronary artery disease invo lving [place] coronary artery of [place] heart without angina pectoris 04/03/2021 Hyperglycemia due [...] Date Recorded PHQ-2 Total Score 6 05/01/2023 [facility] [place] of Occupat ional Health - Occupational Stress [...] ORDERABLES Final Resu lt Performing Organization Address [facility]/ZIP Co de Phone Number SEP OFFICE * [...] EDT) 02/14/2016 10:3 0 AM EDT Impressions [facility] - 02/14/2016 10:53 [...] Vieira MD GI PROCEDURE ORDERABLES Final Result [facility] [address] [place] [address] from Last 3 Months or Most Recently Relevant to Health Maintenance Insurance [facility] [address] [facility] [address] [employer] [facility] [facility] [place] [address] Advance Directives For more information, please contact: [phone] * Full Code (Latest Code Status on [...] 4:05 PM 04/14/2021 5:40 PM Care Teams Real Estate Representative Relationship Specialty Start Date End Date Mario Walls MD [address] [facility] [address] [place] [address] Internal Medicine-Cardiovascular Disease 06/18/23
[2025-03-03 12:48] LABS: Lipase 69 U/L (23-300)
[2025-03-03 12:50] LABS: POC Glucose,Bedside 275 gm/dL (70-110)
--- NOTE | 2025-03-03 12:57 | EXP.CARD.CON ---
History of Present Illness History of Present Illness Consult date: 03/03/25 Chief complaint: abdominal pain, n/v History of present illness: 54-year-old white female established patient of our office with history of CAD status post CABG 2019, normal echo November 2024. Left heart cath November of this year showed nonobstructive CAD, preserved EF, normal EDP. Patient presented to the emergency room complaining of 10 days of worsening nausea and vomiting. Unable to take any of her home meds. On arrival here she was found to have JOSELUIS, hyponatremia, hypokalemia. We are consulted for elevated troponin 0.05, 0.12, 0.14. proBNP 5930. EKG shows extensive inferolateral ST changes. 2D echo yesterday showed EF is down to 40 to 45% with severe hypokinesis of septal, inferoseptal, anteroseptal LV wall. This had previously been normal on echo in November. On my evaluation this morning patient denies cardiac symptoms. She has ongoing nausea with vomiting still unable to tolerate p.o. medications. GI consult is pending. CT abdomen unremarkable aside from small noninflamed appendicoliths. [facility] Disclaimer: The information contained in this section may have been updated after the patient was seen, as this information can be updated by other users. 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 CKD (chronic kidney disease) stage 4, GFR 15-29 ml/min Breast cancer screening Colon cancer screening Diabetic peripheral neuropathy Kidney insufficiency HLD (hyperlipidemia) WARREN (dyspnea on exertion) CAD (coronary artery disease) PTSD (post-traumatic stress disorder) History of type 1 diabetes mellitus Gastroparesis diabeticorum History of gastroesophageal reflux (GERD) History of stroke Cholecystectomy planned Hypotension Angina pectoris Surgical History History of heart surgery Hx of appendectomy Social History Smoking Status: Never smoker alcohol intake: never substance use type: denies use current occupational status: unemployed Travel in the last 8 weeks?: None Have you lived/traveled outside [place] in past 30 days?: No Contact w/someone who lives/traveled outside US past 30 days?: No Exposure to someone with infectious disease in past 14 days?: No Do you have a fever (greater than 100.4 F or 38 C)?: No Have you tested positive for COVID-19?: No Exposed to someone with COVID-19 in past 14 days?: No Do you have a sore throat?: No Do you have a cough?: No Do you have any weakness?: No Do you have any diarrhea?: No Are you experiencing any unusual bleeding?: No Do you have any muscle aches/pain?: No Do you have any abdominal pain?: No Are you experiencing loss of taste or smell?: No Review of Systems Constitutional Constitutional: Denies fatigue and Denies weakness Eyes Eyes: Denies loss of vision ENT Ears, Nose, Mouth, and Throat: Denies hearing loss and Denies vertigo *Cardiovascular Cardiovascular: Denies chest pain, Denies dyspnea and Denies syncope Comments: Intractable nausea and vomiting *Respiratory Respiratory: Denies cough and Denies dyspnea *Gastrointestinal Gastrointestinal: Denies change in stool character, Denies nausea and Denies vomiting *Musculoskeletal Musculoskeletal: Denies muscle weakness Integumentary/Breasts Skin/Breast: Denies changing lesions *Neurologic Neurologic: Denies loss of vision, Denies syncope, Denies vertigo and Denies weakness Endocrine Endocrine: Denies fatigue Exam Data for Last 24 hours Vital signs and Labs for Last 24 Hours: Temp Pulse Resp BP Pulse Ox O2 Del Method O2 Flow Rate 98.1 F 77 14 131/77 99 Room Air 2 03/03/25 12:00 03/03/25 11:19 03/03/25 12:00 03/03/25 12:00 03/03/25 12:00 03/03/25 12:00 03/03/25 00:00 Laboratory Results - last 24 hr 03/02/25 09:15: Hemoglobin A1c 7.5 H, Troponin I 0.05 H, TSH 3.04, Free T4 2.85 H 03/02/25 14:28: Urine Color Yellow, Urine Appearance Clear, Urine pH 8.0, Ur Specific Crowheart 1.015, Urine Protein 3+ A, Urine Glucose (UA) 3+, Urine Ketones 1+, Urine Blood Trace-l, Urine Nitrate Negative, Urine Bilirubin Negative, Urine Urobilinogen 1.0, Ur Leukocyte Esterase Negative, Urine RBC None, Urine WBC 5-10, Ur Squamous Epith Cells 3-5, Urine Bacteria Trace, Urine Opiates Screen Negative, Urine Methadone Screen Negative, Ur Barbituates Screen Negative, Ur Phencyclidine Scrn Negative, Ur Amphetamines Screen Negative, U Benzodiazepines Scrn Negative, Urine Cocaine Screen Negative, U Marijuana (THC) Screen Negative 03/02/25 14:33: Chlamy pneumoniae PCR Not detected, Adenovirus (PCR) Not detected, B. pertussis DNA (PCR) Not detected, Coronavirus OC43 (PCR) Not detected, Coronavirus HKU1 (PCR) Not detected, Coronavirus 229E (PCR) Not detected, SARS-CoV-2 (PCR) Not detected 03/02/25 14:33: SARS-CoV-2 (PCR) Not detected, Coronavirus NL63 (PCR) Not detected, Human Metapneumovir PCR Not detected, Influenza A (H1) PCR Not detected, Influ A (H1N1/09) PCR Not detected, Influenza A (H3) PCR Not detected, Influenza Type A (PCR) Not detected, Influenza A Untype (PCR) Not detected, Influenza Type B (PCR) Not detected 03/02/25 14:33: Influenza Type B (PCR) Not detected, M. pneumoniae (PCR) Not detected, Parainfluenza 1 (PCR) Not detected, Parainfluenza 2 (PCR) Not detected, Parainfluenza 3 (PCR) Not detected, Parainfluenza 4 (PCR) Not detected, RSV (PCR) Not detected, Entero/Rhino (PCR) Not detected 03/02/25 14:50: D-Dimer 0.92 H, Lactate 2.1 03/02/25 16:00: Phosphorus 4.2, Magnesium 1.4 L, Procalcitonin 0.133 03/02/25 17:32: POC Glucose 365 H* 03/02/25 18:00: Lactate 2.4 H, Troponin I 0.12 H 03/02/25 19:34: POC Glucose 369 H* 03/02/25 21:13: Troponin I 0.14 H 03/03/25 05:44: POC Glucose 216 H 03/03/25 05:51: WBC 7.8, RBC 5.11, Hgb 14.3 D, Hct 42.0, MCV 82.2, MCH 28.0, MCHC 34.0, RDW 13.0, Plt Count 247, MPV 10.5 H, Neut % (Auto) 87.1 H, Lymph % (Auto) 10.1, [place] % (Auto) 2.3, Eos % (Auto) 0.0 L, Baso % (Auto) 0.1, Neut # (Auto) 6.8, Lymph # (Auto) 0.8, [place]ill # (Auto) 0.2, Eos # (Auto) 0.0, Baso # (Auto) 0.0, Sodium 128 L, Potassium 3.2 L, Chloride 86 L, Carbon Dioxide 34 H, Anion Gap 11.2, BUN 37 H, Creatinine 2.00 H D, Estimated Creat Clear 35, Estimated GFR 26 L, Est GFR ( Amer) 31 L D, Glucose 220 H D, Calcium 8.5, Magnesium 3.3 H D, Total Bilirubin 0.8, AST 24 D, ALT 14 D, Alkaline Phosphatase 80, NT-Pro-B Natriuret Pep 5930 H, Total Protein 6.8, Albumin 3.0 L D, Globulin 3.8 H, Albumin/Globulin Ratio 0.8 L, Lipase 69, TSH 1.85 D, Free T4 Index 4.6 L, Thyroxine (T4) 9.3, T3 Uptake 49 H 03/03/25 10:29: Troponin I 0.13 H 03/03/25 10:44: POC Glucose 291 H 03/03/25 12:41: POC Glucose 275 H I & O for Last 24 hours: Intake & Output 02/28/25 03/01/25 03/02/25 03/03/25 23:59 23:59 23:59 23:59 Intake Total 3070.921 / 3070.921 1901.000 / 1901.000 Output Total 300 / 300 Balance 3070.921 / 3070.921 1601.000 / 1601.000 Weight 140 lb 152 lb 9.6 oz Constitutional Constitutional: no acute distress and cooperative *Routine HEENT Exam Eye: Present PERRL *Routine Respiratory Exam Respiratory: Present CTA bilaterally; Absent accessory muscle use, wheezes or crackles *Routine Cardiovascular Exam Cardiovascular: Present RRR, Normal S1 and Normal S2; Absent murmur, gallop or rubs *Routine Abdominal Exam Abdominal: Present soft; Absent tenderness *Routine Extremities Exam Extremities: Present pulses intact; Absent cyanosis or edema *Routine Skin Exam Skin: Present intact; Absent erythema or wounds *Routine Neurological Exam Neurological: Present alert and oriented X3 Routine Psychiatric Exam Psychiatric: Present cooperative Meds Home Medications and Allergies Home Medications ?Medication ?Instructions ?Recorded ?Confirmed ?Type 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,roll tender,cont #1 ea 06/01/24 02/22/25 Rx (Dexcom G7 Lathe Mechanic) clopidogrel 75 mg tablet (Plavix) 75 mg PO DAILY #90 tabs 06/03/24 03/02/25 Rx lancets 28 gauge (FreeStyle #100 ea 06/03/24 02/22/25 History Lancets) empagliflozin 10 mg tablet 10 mg PO DAILY #90 tabs 07/20/24 03/02/25 Rx (Jardiance) insulin pump cartridge,auto #1 ea 09/10/24 02/22/25 History dose,BT,G6/G7 with controller subcutaneous (Omnipod 5 G6-G7 Intro Kit(Gen 5) subcutaneous cartridge and controller) insulin pump cart,auto,BT,G6/7 #5 ea 10/16/24 02/22/25 Rx (Omnipod 5 G6-G7 Pods (Gen 5) subcutaneous cartridge) rosuvastatin 10 mg tablet (Crestor) 10 mg PO DAILY #30 tabs 12/08/24 03/02/25 Rx inclisiran 284 mg/1.5 mL 284 mg (1.5 mL) SQ [id number] 2 12/14/24 03/02/25 Rx subcutaneous syringe (Leqvio) doses #1.5 mL omeprazole 20 mg capsule,delayed 20 mg PO DAILY #30 caps 12/14/24 03/02/25 Rx release 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 sensor (Dexcom G7 #9 ea 12/25/24 02/22/25 Rx Sensor device) gabapentin 600 mg tablet 600 mg PO TID #90 tabs 02/12/25 03/02/25 Rx semaglutide 0.25 mg or 0.5 mg (2 0.25 mg (0.368 mL) SQ WEEKLY #3 mL 02/12/25 03/02/25 Rx mg/3 mL) subcutaneous pen injector (Ozempic) estradiol 0.01% (0.1 mg/gram) 1 appful vaginal DIRECTED 03/02/25 03/02/25 History vaginal cream (Estrace) insulin lispro 100 unit/mL 1 unit SQ DIRECTED 03/02/25 03/02/25 History subcutaneous solution (Admelog U-100 Insulin lispro) ondansetron 4 mg disintegrating 4 mg PO Q8HP PRN nausea and 03/02/25 03/02/25 History tablet vomiting sertraline 50 mg tablet 50 mg PO DAILY 03/02/25 03/02/25 History New Prescriptions to Start Prescriptions: Allergies Allergy/AdvReac Type Severity Reaction Status Date / Time atorvastatin Allergy Severe lowers Verified 02/22/25 10:57 blood pressure aspirin (ASPIRIN) Allergy Intermediate I-HIVES Verified 02/22/25 10:57 latex (LATEX) Allergy Unknown RASH, HIVES Verified 02/22/25 10:57 midodrine AdvReac Severe Unknown Verified 02/22/25 10:57 allergy reaction Assessment and Plan *Assessment and plan (1) NSTEMI (non-ST elevated myocardial infarction): Status: Acute Category: Medical Code(s): I21.4 - Non-ST elevation (NSTEMI) myocardial infarction (2) HFrEF (heart failure with reduced ejection fraction): Status: Acute Category: Medical Code(s): I50.20 - Unspecified systolic (congestive) heart failure (3) Intractable nausea and vomiting: Status: Acute Category: Medical Code(s): R11.2 - Nausea with vomiting, unspecified Plan NSTEMI - Known CAD status post CABG 2019, nonobstructive disease per heart cath November of this year - Presented with intractable nausea and vomiting unable to take home meds with rising serial troponin and new ischemic changes on EKG and wall motion changes noted on 2D echo - Advised patient she appears to have had W[place] and would benefit from predischarge heart cath. She is agreeable. Currently she has no anginal symptoms and has JOSELUIS with creatinine up to 2 multiple electrolyte abnormalities and history of contrast-induced nephropathy. Will wait until tomorrow for C. - Pt reporets intolerance to ASA and Statin - Cont Lovenox HFrEF - new dx this admission with EF 40-45% on ECHO, ischemic changes on EKG, in setting of N/V - pt hypovolemic due to GI illness and has JOSELUIS so no GDMT right now - plan for predischarge LHC N/V - 10 days, severe, NPO - CTA abdomen largely normal - GI consult pending JOSELUIS - dehydration and hx of LOYD - daily labs, hydrate, replete lytes 03/03 CV Summary: Pt will need LHC prior to DC, holding for now due to JOSELUIS and NPO. GDMT limited due to acute condition.
--- NOTE | 2025-03-03 13:00 | PC.NURSE ---
Bedside Swallow exam completed by ZAK Camejo. Patient tolerated well. Patient tolerated water, applesauce, and cracker. notified. Per , patient may have a lunch tray at this time. Continuation of care plan.
--- NOTE | 2025-03-03 13:17 | P.CONS_ITS ---
History of Present Illness *Admission Date: 03/02/25 *History of present illness: Janay Head is a 54-year-old female with a medical history significant for CABG in 2020, type 2 diabetes, GERD, anxiety/depression, CVA with residual right-sided weakness who presented to the ED with intractable nausea/vomiting for the past 10 days with intermittent chest pressure. Patient states she was feeling well up until 10 days ago when she began to have poor oral tolerance due to nausea and then vomiting which has gotten progressively worse over the past 10 days. She denies focal abdominal symptoms/pain, changes in diet, changes in medications, fever/chills, shortness of breath, urinary symptoms but does endorse intermittent diarrhea and occasional chest thumping . On medication review patient is on Ozempic 0.25 mg weekly for the past 4 months, patient denies recent dose change. My evaluation, patient looked more comfortable without nausea/vomiting and lying in bed. Workup in the ED significant for troponin 0.05, magnesium 1.4, glucose 423, UDS negative, UA unremarkable other than proteinuria, negative for influenza, COVID-19, lactic acid 2.3, potassium 3.0, magnesium 1.4, CT abdomen/pelvis revealed left kidney hypoenhancing areas which could be pyelonephritis, subacute ischemia, versus other. Additionally, patient's blood pressures were very elevated 200s over 100s. Dr. Fan recommended nitroprusside drip, blood pressures improving to 107/80 upon arrival to the ICU. CXR without acute abnormalities. She was given LR 1.9 L, Zofran, potassium, droperidol. Given these findings, ED provider discussed case with me and said to admit patient for intractable nausea/vomiting, electrolyte abnormalities, NSTEMI. - per H&P This is a 54-year-old female who was struggling with intractable nausea and vomiting for about 10 days prior to admission. She reports no improvement with Zofran at home. She denies diarrhea. She does report chronic constipation and skipping between 2 and 4 days between bowel movements regularly. She does not take anything to help her bowels move. She does have uncontrolled diabetes and last hemoglobin A1c of 8.3% and glucose level 423 upon admission. She also had significantly elevated hypertension. Concern for NSTEMI. Small to medium size hiatal hernia noted on CT scan but no other abnormalities. She has been treated with IV Protonix, IV promethazine and Reglan as needed for nausea. 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 She did have some nausea after eating for gastric emptying study this morning but was not unable to complete the scan. She did not vomit up the food that she ate. The patient reports that she has a long history of acid reflux and is on omeprazole daily at home. That does help but she still gets breakthrough symptoms daily. She is having some dysphagia to food and persistent globus sensation. This has been a chronic issue for her. She has necessitated multiple dilations during EGD over the years. She thinks her last EGD was at [facility] about 10 years ago. She does not know if she has ever seen a identity access management architect before. She is status post cholecystectomy about 10 to 12 years ago as well. She believes her last colonoscopy was over 10 years ago at [facility]. She does report history of colon cancer in her father and was diagnosed in his 70s. She denies IBD or celiac disease in the family. She denies melena hematochezia or mucus in her stool. She has some mild soft distention on exam. She has some mild tenderness to palpation throughout her abdomen on exam. [facility] Disclaimer: The information contained in this section may have been updated after the patient was seen, as this information can be updated by other users. 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 CKD (chronic kidney disease) stage 4, GFR 15-29 ml/min Breast cancer screening Colon cancer screening Diabetic peripheral neuropathy Kidney insufficiency HLD (hyperlipidemia) WARREN (dyspnea on exertion) CAD (coronary artery disease) PTSD (post-traumatic stress disorder) History of type 1 diabetes mellitus Gastroparesis diabeticorum History of gastroesophageal reflux (GERD) History of stroke Cholecystectomy planned Hypotension Angina pectoris Surgical History History of heart surgery Hx of appendectomy Social History Smoking Status: Never smoker alcohol intake: never substance use type: denies use current occupational status: unemployed Travel in the last 8 weeks?: None Have you lived/traveled outside US in past 30 days?: No Contact w/someone who lives/traveled outside US past 30 days?: No Exposure to someone with infectious disease in past 14 days?: No Do you have a fever (greater than 100.4 F or 38 C)?: No Have you tested positive for COVID-19?: No Exposed to someone with COVID-19 in past 14 days?: No Do you have a sore throat?: No Do you have a cough?: No Do you have any weakness?: No Do you have any diarrhea?: No Are you experiencing any unusual bleeding?: No Do you have any muscle aches/pain?: No Do you have any abdominal pain?: No Are you experiencing loss of taste or smell?: No Review of Systems Review of Systems Review of systems:: pertinent systems reviewed and negative unless documented below Constitutional Constitutional: Reports system reviewed and no additional complaints, except as documented, Reports poor appetite and Denies weakness Eyes Eyes: Reports system reviewed and no additional complaints, except as documented and Denies loss of vision ENT Ears, Nose, Mouth, and Throat: Reports system reviewed and no additional complaints, except as documented, Reports dysphagia and Denies vertigo *Cardiovascular Cardiovascular: Reports system reviewed and no additional complaints, except as documented, Reports dyspnea and Denies syncope *Respiratory Respiratory: Reports system reviewed and no additional complaints, except as documented and Reports dyspnea *Gastrointestinal Gastrointestinal: Reports system reviewed and no additional complaints, except as documented, Reports bloating, Reports constipation, Reports dyspepsia, Reports dysphagia, Reports early satiety, Reports nausea and Reports vomiting *Genitourinary Genitourinary: Reports system reviewed and no additional complaints, except as documented *Musculoskeletal Musculoskeletal: Reports system reviewed and no additional complaints, except as documented Integumentary/Breasts Skin/Breast: Reports system reviewed and no additional complaints, except as documented *Neurologic Neurologic: Reports system reviewed and no additional complaints, except as documented, Denies loss of vision, Denies syncope, Denies vertigo and Denies weakness Meds Home Medications and Allergies Home Medications ?Medication ?Instructions ?Recorded ?Confirmed ?Type 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,cardiothoracic surgeon,cont #1 ea 06/01/24 02/22/25 Rx (Dexcom G7 Scheme Technician) clopidogrel 75 mg tablet (Plavix) 75 mg PO DAILY #90 t abs 06/03/24 03/02/25 Rx lancets 28 gauge (FreeStyle #100 ea 06/03/24 02/22/25 History Lancets) empagliflozin 10 mg tablet 10 mg PO DAILY #90 tabs 03/02/25 Rx (Jardiance) insulin pump cartridge,auto #1 ea 09/10/24 02/22/25 Hi story dose,BT,G6/G7 with controller subcutaneous (Omnipod 5 G6-G7 Intro Kit(Gen 5) subcutaneous cartridge and controller) insulin pump cart,auto,BT,G6/7 #5 ea 10/16/24 02/22/25 Rx (Omnipod 5 G6-G7 Pods (Gen 5) subcutaneous cartridge) rosuvastatin 10 mg tablet (Crestor) 10 mg PO DAILY #30 tabs 12/08/24 03/02/25 Rx inclisiran 284 mg/1.5 mL 284 mg (1.5 mL) SQ [id number] 2 12/14/24 03/02/25 Rx subcutaneous syringe (Leqvio) doses #1.5 mL omeprazole 20 mg capsule,delayed 20 mg PO DAILY #30 ca ps 12/14/24 03/02/25 Rx release 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 sensor (Dexcom G7 #9 ea 12/25/24 5 Rx Sensor device) gabapentin 600 mg tablet 600 mg PO TID #90 tabs 02/1203/02/25 Rx semaglutide 0.25 mg or 0.5 mg (2 0.25 mg (0.368 mL) SQ WEEKLY #3 mL 02/12/25 03/02/25 Rx mg/3 mL) subcutaneous pen injector (Ozempic) estradiol 0.01% (0.1 mg/gram) 1 appful vaginal DIRE CTED 03/02/25 03/02/25 History vaginal cream (Estrace) insulin lispro 100 unit/mL 1 unit SQ DIRECTED 03/0203/02/25 History subcutaneous solution (Admelog U-100 Insulin lispro) ondansetron 4 mg disintegrating 4 mg PO Q8HP PRN nause a and 03/02/25 03/02/25 History tablet vomiting sertraline 50 mg tablet 50 mg PO DAILY 03/02/2502/04 History New Prescriptions to Start Prescriptions: Allergies Allergy/AdvReac Type Severity Reaction Status Date / Time atorvastatin Allergy Severe lowers Verified 02/22/25 10:57 blood pressure aspirin (ASPIRIN) Allergy Intermediate I-HIVES Verified 02/22/25 10:57 latex (LATEX) Allergy Unknown RASH, HIVES Verified 02/22/25 10:57 midodrine AdvReac Severe Unknown Verified 02/22/25 10:57 allergy reaction Exam (Inpt) Vital signs and Labs for Last 24 Hours: Temp Pulse Resp BP Pulse Ox O2 Del Method O2 Flow Rate 98.1 F 77 14 131/77 99 Room Air 2 03/03/25 12:00 03/03/25 11:19 03/03/25 12:00 03/03/25 12:00 03/03/25 12:00 03/03/25 12:00 03/03/25 00:00 Laboratory Results - last 24 hr 03/02/25 09:15: Hemoglobin A1c 7.5 H, Troponin I 0.05 H, TSH 3.04, Free T4 2.85 H 03/02/25 14:28: Urine Color Yellow, Urine Appearance Clear, Urine pH 8.0, Ur Specific [place] 1.015, Urine Protein 3+ A, Urine Glucose (UA) 3+, Urine Ketones 1+, Urine Blood Trace-l, Urine Nitrate Negative, Urine Bilirubin Negative, Urine Urobilinogen 1.0, Ur Leukocyte Esterase Negative, Urine RBC None, Urine WBC 5- 10, Ur Squamous Epith Cells 3-5, Urine Bacteria Trace, Urine Opiates Screen Negative, Urine Methadone Screen Negative, Ur Barbituates Screen Negative, Ur Phencyclidine Scrn Negative, Ur Amphetamines Screen Negative, U Benzodiazepines Scrn Negative, Urine Cocaine Screen Negative, U Marijuana (THC) Screen Negative 03/02/25 14:33: Chlamy pneumoniae PCR Not detected, Adenovirus (PCR) Not detected, B. pertussis DNA (PCR) Not detected, Coronavirus OC43 (PCR) Not detected, Coronavirus HKU1 (PCR) Not detected, Coronavirus 229E (PCR) Not detected, SARS-CoV-2 (PCR) Not detected 03/02/25 14:33: SARS-CoV-2 (PCR) Not detected, Coronavirus NL63 (PCR) Not detected, Human Metapneumovir PCR Not detected, Influenza A (H1) PCR Not detected, Influ A (H1N1/09) PCR Not detected, Influenza A (H3) PCR Not detected, Influenza Type A (PCR) Not detected, Influenza A Untype (PCR) Not detected, Influenza Type B (PCR) Not detected 03/02/25 14:33: Influenza Type B (PCR) Not detected, M. pneumoniae (PCR) Not detected, Parainfluenza 1 (PCR) Not detected, Parainfluenza 2 (PCR) Not detected, Parainfluenza 3 (PCR) Not detected, Parainfluenza 4 (PCR) Not detected, RSV (PCR) Not detected, Entero/Rhino (PCR) Not detected 03/02/25 14:50: D-Dimer 0.92 H, Lactate 2.1 03/02/25 16:00: Phosphorus 4.2, Magnesium 1.4 L, Procalcitonin 0.133 03/02/25 17:32: POC Glucose 365 H* 03/02/25 18:00: Lactate 2.4 H, Troponin I 0.12 H 03/02/25 19:34: POC Glucose 369 H* 03/02/25 21:13: Troponin I 0.14 H 03/03/25 05:44: POC Glucose 216 H 03/03/25 05:51: WBC 7.8, RBC 5.11, Hgb 14.3 D, Hct 42.0, MCV 82.2, MCH 28.0, MCHC 34.0, RDW 13.0, Plt Count 247, MPV 10.5 H, Neut % (Auto) 87.1 H, Lymph % (Auto) 10.1, [place] % (Auto) 2.3, Eos % (Auto) 0.0 L, Baso % (Auto) 0.1, Neut # (Auto) 6.8, Lymph # (Auto) 0.8, [place] # (Auto) 0.2, Eos # (Auto) 0.0, Baso # (Auto) 0.0, Sodium 128 L, Potassium 3.2 L, Chloride 86 L, Carbon Dioxide 34 H, Anion Gap 11.2, BUN 37 H, Creatinine 2.00 H D, Estimated Creat Clear 35, E stimated GFR 26 L, Est GFR ( Amer) 31 L D, Glucose 220 H D, Calcium 8.5, Magnesium 3.3 H D, Total Bilirubin 0.8, AST 24 D, ALT 14 D, Alkaline Phosphatase 80, NT-Pro-B Natriuret Pep 5930 H, Total Protein 6.8, Albumin 3.0 L D, Globulin 3.8 H, Albumin/Globulin Ratio 0.8 L, Lipase 69, TSH 1.85 D, Free T4 Index 4.6 L, Thyroxine (T4) 9.3, T3 Uptake 49 H 03/03/25 10:29: Troponin I 0.13 H 03/03/25 10:44: POC Glucose 291 H 03/03/25 12:41: POC Glucose 275 H I & O for Labs for Last 24 Hours: Intake & Output 03/01/25 03/02/25 03/03/25 03/04/25 11:59 11:59 11:59 11:59 Intake Total 4971.921 Output Total 300 Balance 4671.921 Weight 63.503 kg 69.218 kg Constitutional: no acute distress and cooperative Head: Present normocephalic and atraumatic Respiratory: Present decreased breath sounds (Mildly bilateral lower lobes) Cardiac: Present Reg Rate and Rhythm GI: Present soft, distention (Mild soft distention), tenderness (Mildly TTP throughout) and normal bowel sounds Extremities: Present full ROM Skin: Present intact Neuro: Present alert, awake and oriented x 3 Comment:: Reports some memory loss since previous CVA Results Labs 03/03/25 05:51 03/03/25 05:51 Labs: Laboratory Results - last 24 hr 03/02/25 09:15: Hemoglobin A1c 7.5 H, Troponin I 0.05 H, TSH 3.04, Free T4 2.85 H 03/02/25 14:28: Urine Color Yellow, Urine Appearance Clear, Urine pH 8.0, Ur Specific [place] 1.015, Urine Protein 3+ A, Urine Glucose (UA) 3+, Urine Ketones 1+, Urine Blood Trace-l, Urine Nitrate Negative, Urine Bilirubin Negative, Urine Urobilinogen 1.0, Ur Leukocyte Esterase Negative, Urine RBC None, Urine WBC 5- 10, Ur Squamous Epith Cells 3-5, Urine Bacteria Trace, Urine Opiates Screen Negative, Urine Methadone Screen Negative, Ur Barbituates Screen Negative, Ur Phencyclidine Scrn Negative, Ur Amphetamines Screen Negative, U Benzodiazepines Scrn Negative, Urine Cocaine Screen Negative, U Marijuana (THC) Screen Negative 03/02/25 14:33: Chlamy pneumoniae PCR Not detected, Adenovirus (PCR) Not detected, B. pertussis DNA (PCR) Not detected, Coronavirus OC43 (PCR) Not detected, Coronavirus HKU1 (PCR) Not detected, Coronavirus 229E (PCR) Not detected, SARS-CoV-2 (PCR) Not detected 03/02/25 14:33: SARS-CoV-2 (PCR) Not detected, Coronavirus NL63 (PCR) Not detected, Human Metapneumovir PCR Not detected, Influenza A (H1) PCR Not detected, Influ A (H1N1/09) PCR Not detected, Influenza A (H3) PCR Not detected, Influenza Type A (PCR) Not detected, Influenza A Untype (PCR) Not detected, Influenza Type B (PCR) Not detected 03/02/25 14:33: Influenza Type B (PCR) Not detected, M. pneumoniae (PCR) Not detected, Parainfluenza 1 (PCR) Not detected, Parainfluenza 2 (PCR) Not detected, Parainfluenza 3 (PCR) Not detected, Parainfluenza 4 (PCR) Not detected, RSV (PCR) Not detected, Entero/Rhino (PCR) Not detected 03/02/25 14:50: D-Dimer 0.92 H, Lactate 2.1 03/02/25 16:00: Phosphorus 4.2, Magnesium 1.4 L, Procalcitonin 0.133 03/02/25 17:32: POC Glucose 365 H* 03/02/25 18:00: Lactate 2.4 H, Troponin I 0.12 H 03/02/25 19:34: POC Glucose 369 H* 03/02/25 21:13: Troponin I 0.14 H 03/03/25 05:44: POC Glucose 216 H 03/03/25 05:51: WBC 7.8, RBC 5.11, Hgb 14.3 D, Hct 42.0, MCV 82.2, MCH 28.0, MCHC 34.0, RDW 13.0, Plt Count 247, MPV 10.5 H, Neut % (Auto) 87.1 H, Lymph % (Auto) 10.1, [place] % (Auto) 2.3, Eos % (Auto) 0.0 L, Baso % (Auto) 0.1, Neut # (Auto) 6.8, Lymph # (Auto) 0.8, [place] # (Auto) 0.2, Eos # (Auto) 0.0, Baso # (Auto) 0.0, Sodium 128 L, Potassium 3.2 L, Chloride 86 L, Carbon Dioxide 34 H, Anion Gap 11.2, BUN 37 H, Creatinine 2.00 H D, Estimated Creat Clear 35, E stimated GFR 26 L, Est GFR ( Amer) 31 L D, Glucose 220 H D, Calcium 8.5, Magnesium 3.3 H D, Total Bilirubin 0.8, AST 24 D, ALT 14 D, Alkaline Phosphatase 80, NT-Pro-B Natriuret Pep 5930 H, Total Protein 6.8, Albumin 3.0 L D, Globulin 3.8 H, Albumin/Globulin Ratio 0.8 L, Lipase 69, TSH 1.85 D, Free T4 Index 4.6 L, Thyroxine (T4) 9.3, T3 Uptake 49 H 03/03/25 10:29: Troponin I 0.13 H 03/03/25 10:44: POC Glucose 291 H 03/03/25 12:41: POC Glucose 275 H Assessment and Plan *Assessment and plan (1) Intractable nausea and vomiting: Status: Acute Category: Medical Code(s): R11.2 - Nausea with vomiting, unspecified (2) Acid reflux: Status: Acute Category: Medical Code(s): K21.9 - Gastro-esophageal reflux disease without esophagitis (3) Uncontrolled diabetes mellitus: Status: Acute Category: Medical (4) Dysphagia: Status: Acute Category: Medical Code(s): R13.10 - Dysphagia, unspecified (5) Globus sensation: Status: Acute Category: Medical Code(s): R09.A2 - Foreign body sensation, throat (6) Chronic constipation: Status: Acute Category: Medical Code(s): K59.09 - Other constipation Plan 1. Intractable nausea and vomiting/acid reflux/uncontrolled diabetes/dysphagia/globus Patient has had longstanding trouble with acid reflux daily even on omeprazole although improved on that medicine. She does have intermittent episodes of dysphagia and globus sensation. She reports multiple EGDs with dilation over the years. Her last EGD was about 10 years ago at [facility] for similar symptoms. She has had 10 days of uncontrolled nausea and vomiting but presented with uncontrolled diabetes and glucose of 423 along with hypertensive emergency with her systolic blood pressure over 200 and possible NSTEMI. All of these can contribute to uncontrolled nausea and vomiting. Concern for gastroparesis type symptoms. She did have a small to medium size hiatal hernia on imaging. No other significant abnormalities. Patient was unable to complete her gastric emptying study today. We discussed the possibility of gastroparesis especially with uncontrolled diabetes. Once glucose levels are controlled, patients can get back some of that motility and have improvement of symptoms. She has had no vomiting since middle of the night. She is rather high risk for sedation for procedure currently, has had improvement with medications, and most of her symptoms are chronic in nature. Likely exacerbated also by her chronic constipation. See below recommendations. I am happy to see her as an outpatient after discharge and we can repeat that gastric emptying study and schedule outpatient EGD. 2. Chronic constipation Patient reports longstanding chronic constipation and can regularly skip multiple days without a bowel movement. When she does go she may have variable stools. She denies melena hematochezia or mucus in her stool. She does not know if she has ever seen a identity access management architect before. Father diagnosed with colon cancer in his 70s. Patient's last colonoscopy she thinks 10 or 12 years ago at [facility]. She will need an outpatient colonoscopy. I recommend MiraLAX and Metamucil daily here and after discharge.
--- NOTE | 2025-03-03 15:23 | PC.NURSE ---
states patients suture on L hand 2nd finger may be removed on 03/04/2025. Continuation of care plan.
--- NOTE | 2025-03-03 16:06 | PC.NURSE ---
Report called to ZAK Mancia.
[2025-03-03 16:26] LABS: Anion Gap 13.1 mEq/L (5-15); Blood Urea Nitrogen 43 mg/dl (7-17); Calcium 8.4 mg/dl (8.4-10.2); Carbon Dioxide 31 mmol/L (22.0-30.0); Chloride 85 mmol/L (98-107); Creatinine Clearance Estimated 27 mL/min (50-200); Creatinine,Serum 2.60 mg/dl (0.52-1.04); Estimated Glomerular Filt Rate 19 ml/min (>60); GFR (African American) 23 ML/MIN (>60); Glucose 339 mg/dl (74-100); Potassium 3.1 mmoL/L (3.5-5.1); Sodium 126 mmol/L (136-145)
[2025-03-03 16:37] LABS: POC Glucose,Bedside 339 gm/dL (70-110)
--- NOTE | 2025-03-03 16:40 | PC.NURSE ---
patient transfer from ICU to [facility] via wheelchair with ZAK Ruelas @ [phone]
[2025-03-03] MEDS: RINGERS SOLUTION,LACTATED 500 ML IV (16:50)
[2025-03-03] MEDS: PANTOPRAZOLE 40MG VIAL 40 MG IV (20:26)
[2025-03-03] MEDS: SODIUM CHLORIDE 0.9% 10ML VIAL 10 ML IV (20:26)
[2025-03-03 20:39] LABS: POC Glucose,Bedside 237 gm/dL (70-110)
--- NOTE | 2025-03-03 21:44 | P.PN_ITS ---
Subjective *Date: 03/03/25 *Time: 21:44 Interval history: Nausea/vomiting resolved today, patient tolerated p.o. intake. Patient also had a transient left upper extremity weakness with numbness in lips and tongue. Resolved within [address] head unremarkable. Continue to follow renal function, in the setting of contrast nephropathy. Exam Data for Last 24 hours Vital signs and Labs for Last 24 Hours: Temp Pulse Resp BP Pulse Ox O2 Del Method O2 Flow Rate 97.9 F 85 18 130/85 98 Room Air 2 03/03/25 19:47 03/03/25 19:47 03/03/25 19:47 03/03/25 19:47 03/03/25 19:47 03/03/25 20:00 03/03/25 00:00 Laboratory Results - last 24 hr 03/02/25 21:13: Troponin I 0.14 H 03/03/25 05:44: POC Glucose 216 H 03/03/25 05:51: WBC 7.8, RBC 5.11, Hgb 14.3 D, Hct 42.0, MCV 82.2, MCH 28.0, M CHC 34.0, RDW 13.0, Plt Count 247, MPV 10.5 H, Neut % (Auto) 87.1 H, Lymph % (Auto) 10.1, [place] % (Auto) 2.3, Eos % (Auto) 0.0 L, Baso % (Auto) 0.1, Neut # (Auto) 6.8, Lymph # (Auto) 0.8, [place] # (Auto) 0.2, Eos # (Auto) 0.0, Baso # (Auto) 0.0, Sodium 128 L, Potassium 3.2 L, Chloride 86 L, Carbon Dioxide 34 H, Anion Gap 11.2, BUN 37 H, Creatinine 2.00 H D, Estimated Creat Clear 35, Estimated GFR 26 L, Est GFR ( Amer) 31 L D, Glucose 220 H D, Calcium 8.5, Magnesium 3.3 H D, Total Bilirubin 0.8, AST 24 D, ALT 14 D, Alkaline Phosphatase 80, NT-Pro-B Natriuret Pep 5930 H, Total Protein 6.8, Albumin 3.0 L D, Globulin 3.8 H, Albumin/Globulin Ratio 0.8 L, Lipase 69, TSH 1.85 D, Free T4 Index 4.6 L, Thyroxine (T4) 9.3, T3 Uptake 49 H 03/03/25 10:29: Troponin I 0.13 H 03/03/25 10:44: POC Glucose 291 H 03/03/25 12:41: POC Glucose 275 H 03/03/25 15:15: Sodium 126 L, Potassium 3.1 L, Chloride 85 L, Carbon Dioxide 31 H, Anion Gap 13.1, BUN 43 H, Creatinine 2.60 H D, Estimated Creat Clear 27, Estimated GFR 19 L*, Est GFR ( Amer) 23 L D, Glucose 339 H D, Calcium 8.4 03/03/25 16:30: POC Glucose 339 H* 03/03/25 20:32: POC Glucose 237 H I & O for Last 24 hours: Intake & Output 02/28/25 03/01/25 03/02/25 03/03/25 23:59 23:59 23:59 23:59 Intake Total 3070.921 / 3070.921 3297.667 / 3297.667 Output Total 300 / 300 Balance 3070.921 / 3070.921 2997.667 / 2997.667 Weight 63.503 kg 69.218 kg Microbiology Reports for the Last 24 Hours: Microbiology 03/02/25 16:05 Blood Blood Culture - Preliminary NO GROWTH AFTER 24 HOURS 03/02/25 16:00 Blood Blood Culture - Preliminary NO GROWTH AFTER 24 HOURS Constitutional Constitutional: no acute distress *Routine HEENT Exam Head: Present normocephalic Eye: Present EOMI and PERRL ENT: Present mucous membranes moist *Routine Neck Exam Neck: Present supple; Absent lymphadenopathy *Routine Respiratory Exam Respiratory: Present CTA bilaterally *Routine Cardiovascular Exam Cardiovascular: Present RRR *Routine Abdominal Exam Abdominal: Present soft and normoactive bowel sounds; Absent tenderness *Routine Extremities Exam Extremities: Absent cyanosis, clubbing or edema *Routine Skin Exam Skin: Present warm; Absent rash *Routine Neurological Exam Neurological: Present alert and oriented X3 Assessment and Plan *Assessment and plan (1) Nausea & vomiting: Status: Acute Qualifiers: Vomiting type: unspecified Qualified Code(s): R11.2 - Nausea with vomiting, unspecified Category: Medical Code(s): R11.2 - Nausea with vomiting, unspecified Plan Janay Head is a 54-year-old female with a medical history significant for CABG in 2020, type 2 diabetes, GERD, anxiety/depression, CVA with residual right-sided weakness who presented to the ED with intractable nausea/vomiting for the past 10 days with intermittent chest pressure. Patient states she was feeling well up until 10 days ago when she began to have poor oral tolerance due to nausea and then vomiting which has gotten progressively worse over the past 10 days. She denies focal abdominal symptoms/pain, changes in diet, changes in medications, fever/chills, shortness of breath, urinary symptoms but does endorse intermittent diarrhea and occasional chest thumping . On medication review patient is on Ozempic 0.25 mg weekly for the past 4 months, patient denies recent dose change. My evaluation, patient looked more comfortable without nausea/vomiting and lying in bed. Workup in the ED significant for troponin 0.05, magnesium 1.4, glucose 423, UDS negative, UA unremarkable other than proteinuria, negative for influenza, COVID-19, lactic acid 2.3, potassium 3.0, magnesium 1.4, CTA abdomen/pelvis revealed left kidney hypoenhancing areas which could be pyelonephritis, subacute ischemia, versus other. Additionally, patient's blood pressures were very elevated 200s over 100s. Dr. Fan recommended nitroprusside drip, blood pressures improving to 107/80 upon arrival to the ICU. CXR without acute abnormalities. She was given LR 1.9 L, Zofran, potassium, droperidol. Given these findings, ED provider discussed case with me and said to admit patient for intractable nausea/vomiting, electrolyte abnormalities, NSTEMI. #Intractable nausea/vomiting, resolved #Hypokalemia, Hypomagnesemia, resolved #Lactic acidosis, resolved ? Presented with progressively worsening intractable nausea/vomiting over the past 10 days without clear etiology. No recent changes in diet, medications, no focal abdominal symptoms. ? Overall, workup largely unremarkable. Free T4 is slightly elevated 2.85, but TSH normal suggesting false positive elevated free T4. See below. ? CTA abdomen/pelvis revealed hypoenhancing left kidney areas which could be pyelonephritis, subacute ischemia, versus other. However, no evidence of pyelonephritis, and no renal artery stenosis. UA unremarkable. Lactic acidosis resolved with fluid resuscitation. ? Patient is a diabetic, A1c 8.3%. Some concern for gastroparesis. ? Patient is also on Ozempic for the past 4 months, though on a low dose of 0.25 mg weekly. Will advise hold for now. ? Patient's symptoms significantly improved today, tolerating p.o. intake without issues. ? GI evaluated patient, given improvement in symptoms we will pursue outpatient workup including possible gastric emptying study, EGD. ? Normal full respiratory panel, blood cultures, procalcitonin. ? Continue IV Protonix 40 mg nightly. ? IV promethazine as needed for nausea. #NSTEMI, type I #History of CABG 2019 #History of CVA with right-sided residual weakness #Suspected TIA ? Presented with symptoms of chest thumping intermittently over the past 10 days in the setting of blood pressure of 200s over 100s. ? Troponin up trended to 0.13 then plateaued, EKG with nonspecific ST wave changes concerning for ischemia. ? LHC and November 2024 did not show critical occlusive disease. ? Blood pressures 107/80 upon arrival to the ICU, nitroprusside drip stopped. ? Continue propranolol 10 mg 3 times daily for possible hyperthyroidism, see below. Elevated blood pressures are new for patient, they were normal in November. Elevated pressures are more likely reactive at this time. Continue to monitor. ? Patient had a transient left upper extremity weakness, numbness and tingling in her lips and tongue this morning. CT head without acute findings. Symptoms resolved within 20 minutes. ? Continue aspirin 81 mg, sat Plavix 75 mg. ? Continue therapeutic Lovenox. ? ECHO LVEF 40 to 45% with severe wall motion abnormalities. ? Cardiology consulted, plan to do LHC during admission if kidney function amenable. ? Continuous cardiac telemetry. #JOSELUIS #Contrast nephropathy ? Creatinine bumped from 1.5-2.6 today in the setting of contrast. Patient has had similar renal insufficiency in the setting of contrast. ? Will hold off on further IV fluids in the setting of HFrEF, elevated BNP. ? Continue to monitor renal function closely. Avoid nephrotoxic medications, renally dose. #Elevated free T4 ? Free T4 slightly elevated 2.85, TSH normal. Likely false positive at this time due to normal TSH, but cannot rule out hyperthyroidism in the setting of nausea/vomiting. Will inquire if patient takes biotin in the morning. ? Continue propranolol 10 mg 3 times daily, IV Solu-Medrol 60 mg one-time dose. ? Follow-up thyroid antibodies. ? Endocrinology consulted, pending further recommendations. #GERD ? IV Protonix 40 mg as above. #Anxiety/depression ? Hold home sertraline in the setting of nausea/vomiting. Resume once appropriate. Full code DVT prophylaxis: Therapeutic Lovenox
[2025-03-03 21:48] LABS: Anion Gap 14.4 mEq/L (5-15); Blood Urea Nitrogen 46 mg/dl (7-17); Calcium 8.3 mg/dl (8.4-10.2); Carbon Dioxide 26 mmol/L (22.0-30.0); Chloride 89 mmol/L (98-107); Creatinine Clearance Estimated 26 mL/min (50-200); Creatinine,Serum 2.70 mg/dl (0.52-1.04); Estimated Glomerular Filt Rate 18 ml/min (>60); GFR (African American) 22 ML/MIN (>60); Glucose 226 mg/dl (74-100); Potassium 3.4 mmoL/L (3.5-5.1); Sodium 126 mmol/L (136-145)
[2025-03-03] MEDS: LIDOCAINE 5% TRANSDERMAL PATCH 1 EACH TD (22:00)
--- NOTE | 2025-03-03 22:00 | PC.NURSE ---
patient c/o difficulty swallowing and states it felt like food was stuck in her throat. patient has a history of this incident.
[2025-03-03] MEDS: SERTRALINE 50MG TABLET 50 MG PO (23:35)
--- NOTE | 2025-03-03 23:36 | PC.NURSE ---
hospitalist at bedside to discuss labs with patient per patient request.
[2025-03-04] VITALS: BP 150/83; PULSE 80; PULSE 84; RESP 17; TEMP 36.7; O2SAT 96
[2025-03-04] MEDS: HYDROCODONE/APAP 5/325 MG TABLET 1 TAB PO (01:28)
--- NOTE | 2025-03-04 01:30 | PC.NURSE ---
pt c/o 2nd finger pain on the left hand from an old injury - tx per mar
[2025-03-04 04:00] VITALS: BP 141/70; PULSE 80; PULSE 82; RESP 14; TEMP 37; O2SAT 96; BMI 26.4
[2025-03-04] MEDS: PROMETHAZINE HCL 25MG/ML 1ML VIAL 25 MG IV (06:11)
[2025-03-04] MEDS: humaLOG 100 UNITS/ML 10ML VIAL (SSI) SUBCUT ×2 (06:19→12:10)
[2025-03-04 06:23] LABS: POC Glucose,Bedside 394 gm/dL (70-110)
--- NOTE | 2025-03-04 06:25 | PC.NURSE ---
pt c/o nausea - tx per mar
[2025-03-04 06:32] LABS: Hematocrit 34.3 % (37.0-47.0); Hemoglobin 11.8 g/dL (12.2-16.2); Immature Granulocytes % 0.4 %; Mean Corpuscular HGB Conc 34.4 g/dL (31.8-35.4); Mean Corpuscular Hemoglobin 28.2 pg (27.0-31.2); Mean Corpuscular Volume 81.9 fl (81-99); Nucleated Red Blood Cells % 0 %; Platelet Count 185 K/mm3 (142-424); Red Blood Count 4.19 M/mm3 (4.20-5.40); Red Cell Distribution Width-SD 39.6 fL; White Blood Count 8.1 K/mm3 (4.8-10.8)
[2025-03-04 06:54] LABS: Chloride 89 mmol/L (98-107)
[2025-03-04 06:55] LABS: Albumin Level 2.3 g/dl (3.5-5.0); Potassium 3.5 mmoL/L (3.5-5.1); Sodium 122 mmol/L (136-145)
[2025-03-04 06:57] LABS: Blood Urea Nitrogen 50 mg/dl (7-17); Creatinine Clearance Estimated 26 mL/min (50-200); Creatinine,Serum 2.70 mg/dl (0.52-1.04); Estimated Glomerular Filt Rate 18 ml/min (>60); GFR (African American) 22 ML/MIN (>60)
[2025-03-04 06:58] LABS: Alanine Aminotransferase 15 U/L (12-78); Albumin/Globulin Ratio 0.7 (1.1-1.8); Alkaline Phosphatase 71 U/L (38-126); Anion Gap 8.5 mEq/L (5-15); Aspartate Amino Transferase 24 U/L (14-36); Bilirubin,Total 0.4 mg/dl (0.2-1.3); Calcium 7.6 mg/dl (8.4-10.2); Carbon Dioxide 28 mmol/L (22.0-30.0); Globulin 3.3 g/dL (1.3-3.2); Glucose 355 mg/dl (74-100); Magnesium 2.6 mg/dl (1.6-2.3); Total Protein,Serum 5.6 g/dl (6.3-8.2)
[2025-03-04 08:00] VITALS: BP 160/88; PULSE 72; PULSE 80; RESP 16; TEMP 36.7; O2SAT 96
[2025-03-04 09:08] LABS: Free T4 (Free Thyroxine) 1.95 ng/dl (0.78-2.19)
[2025-03-04 09:22] LABS: Thyroid Stimulating Hormone 1.47 uIU/mL (0.465-4.68)
[2025-03-04 11:35] LABS: POC Glucose,Bedside 176 gm/dL (70-110)
[2025-03-04 12:00] VITALS: BP 160/94; PULSE 78; PULSE 80; RESP 16; TEMP 36.6; O2SAT 98
[2025-03-04] MEDS: 0.9 % SODIUM CHLORIDE 1000ML 500 ML IV (12:10)
[2025-03-04] MEDS: CLOPIDOGREL 75MG TAB 75 MG PO (12:24)
[2025-03-04] MEDS: SERTRALINE 50MG TABLET 50 MG PO (12:24)
--- NOTE | 2025-03-04 13:57 | EXP.CARD.PN ---
Subjective Subjective Date: 03/04/25 Time: 09:30 Interval history: Cr remains elevated at 2.7 Pt denies CP Still having nausea and vertigo Exam Data for Last 24 hours Vital signs and Labs for Last 24 Hours: Temp Pulse Resp BP Pulse Ox O2 Del Method O2 Flow Rate 98 F 78 16 160/94 H 98 Room Air 2 03/04/25 12:00 03/04/25 12:00 03/04/25 12:00 03/04/25 12:00 03/04/25 12:00 03/04/25 09:00 03/03/25 00:00 Laboratory Results - last 24 hr 03/02/25 21:13: Thyroid Peroxidase Ab <9 03/03/25 15:15: Sodium 126 L, Potassium 3.1 L, Chloride 85 L, Carbon Dioxide 31 H, Anion Gap 13.1, BUN 43 H, Creatinine 2.60 H D, Estimated Creat Clear 27, Estimated GFR 19 L*, Est GFR ( Amer) 23 L D, Glucose 339 H D, Calcium 8.4 03/03/25 16:30: POC Glucose 339 H* 03/03/25 20:32: POC Glucose 237 H 03/03/25 21:22: Sodium 126 L, Potassium 3.4 L, Chloride 89 L, Carbon Dioxide 26, Anion Gap 14.4, BUN 46 H, Creatinine 2.70 H, Estimated Creat Clear 26, Estimated GFR 18 L*, Est GFR ( Amer) 22 L, Glucose 226 H D, Calcium 8.3 L 03/04/25 06:16: POC Glucose 394 H* 03/04/25 06:17: WBC 8.1, RBC 4.19 L, Hgb 11.8 L, Hct 34.3 L, MCV 81.9, MCH 28.2, MCHC 34.4, RDW 13.3, Plt Count 185 D, MPV 10.9 H, Neut % (Auto) 78.3, Lymph % (Auto) 14.2, [place] % (Auto) 5.2, Eos % (Auto) 1.7, Baso % (Auto) 0.2, Neut # (Auto) 6.4, Lymph # (Auto) 1.2, [place] # (Auto) 0.4, Eos # (Auto) 0.1, Baso # (Auto) 0.0, Sodium 122 L, Potassium 3.5, Chloride 89 L, Carbon Dioxide 28, Anion Gap 8.5, BUN 50 H, Creatinine 2.70 H, Estimated Creat Clear 26, Estimated GFR 18 L*, Est GFR ( Amer) 22 L, Glucose 355 H D, Calcium 7.6 L, Magnesium 2.6 H D, Total Bilirubin 0.4, AST 24, ALT 15, Alkaline Phosphatase 71, Total Protein 5.6 L, Albumin 2.3 L D, Globulin 3.3 H, Albumin/Globulin Ratio 0.7 L, TSH 1.47, Free T4 1.95 03/04/25 11:23: POC Glucose 176 H I & O for Last 24 hours: Intake & Output 03/01/25 03/02/25 03/03/25 03/04/25 23:59 23:59 23:59 23:59 Intake Total 3070.921 / 3070.921 3897.667 / 3897.667 360 / 360 Output Total 300 / 300 Balance 3070.921 / 3070.921 3597.667 / 3597.667 360 / 360 Weight 140 lb 152 lb 9.6 oz 155 lb Microbiology Reports for the Last 24 Hours: Microbiology 03/02/25 16:05 Blood Blood Culture - Preliminary NO GROWTH AFTER 24 HOURS 03/02/25 16:00 Blood Blood Culture - Preliminary NO GROWTH AFTER 24 HOURS Constitutional Constitutional: no acute distress and cooperative *Routine HEENT Exam Eye: Present PERRL *Routine Respiratory Exam Respiratory: Present CTA bilaterally; Absent accessory muscle use, wheezes or crackles *Routine Cardiovascular Exam Cardiovascular: Present RRR, Normal S1 and Normal S2; Absent murmur, gallop or rubs *Routine Abdominal Exam Abdominal: Present soft; Absent tenderness *Routine Extremities Exam Extremities: Present pulses intact; Absent cyanosis or edema *Routine Skin Exam Skin: Present intact; Absent erythema or wounds *Routine Neurological Exam Neurological: Present alert and oriented X3 Routine Psychiatric Exam Psychiatric: Present cooperative Progress Note: A&P Assessment and plan (1) Nausea & vomiting: Status: Acute (2) HFrEF (heart failure with reduced ejection fraction): Status: Acute (3) NSTEMI (non-ST elevated myocardial infarction): Status: Acute (4) Hypertensive emergency: Status: Acute (5) Intractable nausea and vomiting: Status: Acute Assessment and Plan Assessment and Plan for All Diagnoses:: NSTEMI - Known CAD status post CABG 2019, nonobstructive disease per heart cath November of this year - Presented with intractable nausea and vomiting unable to take home meds with rising serial troponin and new ischemic changes on EKG and wall motion changes noted on 2D echo - Advised patient she appears to have had CO and would benefit from predischarge heart cath. She is agreeable. Currently she has no anginal symptoms and has JOSELUIS with creatinine up to 2 multiple electrolyte abnormalities and history of contrast-induced nephropathy. Will wait until tomorrow for LHC. - Pt reporets intolerance to ASA and Statin. Cont Plavix, Lovenox. Add BB. 03/04: Discussed with patient that her creatinine remains elevated due to JOSELUIS and possible second lifteime episode of contrast-induced nephropathy from CT angiogram. Discussed proceeding with left heart cath and possible furthering her renal dysfunction or waiting for heart cath in 2 weeks. She prefers to wait and reassess once her kidney function has returned to baseline. We discussed return parameters including chest pain lower extremity edema palpitations. HFrEF - new dx this admission with EF 40-45% on ECHO, ischemic changes on EKG, in setting of N/V - pt hypovolemic due to GI illness and has JOSELUIS so no GDMT right now - plan for predischarge LHC delayed as outlined above - Add Toprol, Valsartan, Hydralazine/Imdur. No MRA or SGLT-2 due to N/V/dehydration N/V - 10 days, severe, NPO - CTA abdomen largely normal - Plans per GI JOSELUIS - dehydration and hx of LOYD - daily labs, hydrate, replete lytes 03/04: Will wait on left heart cath for renal function to improve as an outpatient, discussed with patient this may be up to 2 weeks. In the interim we will further titrate her GDMT as outlined above. Possibly home tomorrow if vital stable and symptoms controlled.
--- NOTE | 2025-03-04 13:57 | HMH.PTEV ---
Physical Therapy Evaluation Rehab PT IP Evaluation Start: 03/04/25 11:42 Freq: ONCE Status: Active Protocol: Document 03/04/25 13:51 JASMIN (Rec: 03/04/25 13:57 JASMIN [id number]) Subjective/History History History 54-year-old female with a medical history significant for CABG in 2019, type 2 diabetes, GERD, anxiety/ depression, CVA with residual right-sided weakness who presented to the ED with intractable nausea/vomiting for the past 10 days with intermittent chest pressure. Patient states she was feeling well up until 10 days ago when she began to have poor oral tolerance due to nausea and then vomiting which has gotten progressively worse over the past 10 days. She denies focal abdominal symptoms/pain, changes in diet, changes in medications, fever/chills, shortness of breath, urinary symptoms but does endorse intermittent diarrhea and occasional chest thumping . On medication review patient is on Ozempic 0.25 mg weekly for the past 4 months, patient denies recent dose change. My evaluation, patient looked more comfortable without nausea/vomiting and lying in bed. Workup in the ED significant for troponin 0.05, magnesium 1.4, glucose 423, UDS negative, UA unremarkable other than proteinuria, negative for influenza, COVID-19, lactic acid 2.3, potassium 3.0, magnesium 1.4, CT abdomen/ pelvis revealed left kidney hypoenhancing areas which could be pyelonephritis, subacute ischemia, versus other. Additionally, patient's blood pressures were very elevated 200s over 100s. Dr. Fan recommended nitroprusside drip, blood pressures improving to 107/ 80 upon arrival to the ICU. CXR without acute abnormalities. She was given LR 1.9 L, Zofran, potassium, droperidol. Given these findings, ED provider discussed case with me and said to admit patient for intractable nausea/vomiting, electrolyte abnormalities, NSTEMI. 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 She reports no c/o dizziness at this time and is agreeable to mobility assessment. [facility] How much help from another person do you currently need... Turning from your None back to your side while in a flat bed without using bedrails? Moving from lying on None back to sitting on the side of a flat bed without using bedrails? Moving to and from a None bed to a chair ( including a wheelchair)? Standing up from a None chair using your arms? (e.g., wheelchair, bedside chair) Walking in hospital None room? Climbing 3-5 steps None with a railing? Mobility Score 24 Mobility Level [place] [id number] Walk 250 feet or more Mobility Calculator Rehab PT IP Eval Objective Appearance Patient Behavior Appropriate Patient Orientation Person,Place,Time Difficulty following none instructions Speech Pattern Clear Ambulation Patient Able to Yes Ambulate Ambulation Observation IP General Gait Wide Based Gait Pattern Observation Ambulation Distance 75 (feet) Ambulation Assistive Rolling Walker Device Ambulation Ability Supervision/Stand by Balance Ability to Arise Able, uses arms to help Sitting Balance Steady, safe Standing Balance Unsteady Dynamic Sitting Good Balance Ability Dynamic Standing Poor Balance Ability Transfers Bed Transfer Ability Independent Chair Transfer Supervision/Stand by Ability Sit to Stand Bed Supervision/Stand by Transfer Ability Sit to Stand Chair Supervision/Stand by Transfer Ability ROM All Extremities PT ROM Status WFL MMT All Extremities PT MMT WFL Rehab PT IP prob,goals,plan Problems Date of Evaluation: 03/04/25 Discharge Plan PT Discharge Plan Pt is currently appropriate to return home once medically stable for d/c. She would benefit from a rolator walker due to poor static and dynamic standing balance associated with her visual impairments and diabetic peripheral neuropathy. No current acute skilled therapy needs. Eval Complexity Eval Charge Codes 15026 - High Complexity PHYSICIAN CERTIFICATION: I certify the specified therapy services for Janay Head are required, authorized, and reviewed every 30 days.
[2025-03-04 15:08] LABS: Anion Gap 13.7 mEq/L (5-15); Blood Urea Nitrogen 56 mg/dl (7-17); Calcium 7.4 mg/dl (8.4-10.2); Carbon Dioxide 22 mmol/L (22.0-30.0); Chloride 92 mmol/L (98-107); Creatinine Clearance Estimated 24 mL/min (50-200); Creatinine,Serum 2.90 mg/dl (0.52-1.04); Estimated Glomerular Filt Rate 17 ml/min (>60); GFR (African American) 20 ML/MIN (>60); Glucose 222 mg/dl (74-100); Potassium 3.7 mmoL/L (3.5-5.1); Sodium 124 mmol/L (136-145)
[2025-03-04] MEDS: METOPROLOL SUCCINATE XL 25MG TABLET 25 MG PO (15:08)
[2025-03-04] MEDS: ISOSORBIDE MONO 30MG TAB.ER.24H 30 MG PO (15:08)
[2025-03-04] MEDS: IRBESARTAN 75MG TABLET 75 MG PO (15:12)
--- NOTE | 2025-03-04 15:48 | EXP.DC.SUM ---
General Admission date:: 03/02/25 HPI HPI HPI: Janay Head is a 54-year-old female with a medical history significant for CABG in 2020, type 2 diabetes, GERD, anxiety/depression, CVA with residual right-sided weakness who presented to the ED with intractable nausea/vomiting for the past 10 days with intermittent chest pressure. Patient states she was feeling well up until 10 days ago when she began to have poor oral tolerance due to nausea and then vomiting which has gotten progressively worse over the past 10 days. She denies focal abdominal symptoms/pain, changes in diet, changes in medications, fever/chills, shortness of breath, urinary symptoms but does endorse intermittent diarrhea and occasional chest thumping . On medication review patient is on Ozempic 0.25 mg weekly for the past 4 months, patient denies recent dose change. My evaluation, patient looked more comfortable without nausea/vomiting and lying in bed. Workup in the ED significant for troponin 0.05, magnesium 1.4, glucose 423, UDS negative, UA unremarkable other than proteinuria, negative for influenza, COVID-19, lactic acid 2.3, potassium 3.0, magnesium 1.4, CT abdomen/pelvis revealed left kidney hypoenhancing areas which could be pyelonephritis, subacute ischemia, versus other. Additionally, patient's blood pressures were very elevated 200s over 100s. Dr. Fan recommended nitroprusside drip, blood pressures improving to 107/80 upon arrival to the ICU. CXR without acute abnormalities. She was given LR 1.9 L, Zofran, potassium, droperidol. Given these findings, ED provider discussed case with me and said to admit patient for intractable nausea/vomiting, electrolyte abnormalities, NSTEMI. per H&P This is a 54-year-old female who was struggling with intractable nausea and vomiting for about 10 days prior to admission. She reports no improvement with Zofran at home. She denies diarrhea. She does report chronic constipation and skipping between 2 and 4 days between bowel movements regularly. She does not take anything to help her bowels move. She does have uncontrolled diabetes and last hemoglobin A1c of 8.3% and glucose level 423 upon admission. She also had significantly elevated hypertension. Concern for NSTEMI. Small to medium size hiatal hernia noted on CT scan but no other abnormalities. She has been treated with IV Protonix, IV promethazine and Reglan as needed for nausea. Since admission and rehydration, patient has not had any vomiting since very bee robber about 4 AM. She did have some nausea after eating for gastric emptying study this morning but was not unable to complete the scan. She did not vomit up the food that she ate. The patient reports that she has a long history of acid reflux and is on omeprazole daily at home. That does help but she still gets breakthrough symptoms daily. She is having some dysphagia to food and persistent globus sensation. This has been a chronic issue for her. She has necessitated multiple dilations during EGD over the years. She thinks her last EGD was at [facility] about 10 years ago. She does not know if she has ever seen a social and political studies professor before. She is status post cholecystectomy about 10 to 12 years ago as well. She believes her last colonoscopy was over 10 years ago at [facility]. She does report history of colon cancer in her father and was diagnosed in his 70s. She denies IBD or celiac disease in the family. She denies melena hematochezia or mucus in her stool. She has some mild soft distention on exam. She has some mild tenderness to palpation throughout her abdomen on exam. Hospital Course Hospital Course Hospital Course: Janay Head is a 54-year-old female with a medical history significant for CABG in 2020, type 2 diabetes, GERD, anxiety/depression, CVA with residual right-sided weakness who presented to the ED with intractable nausea/vomiting for the past 10 days with intermittent chest pressure. Patient states she was feeling well up until 10 days ago when she began to have poor oral tolerance due to nausea and then vomiting which has gotten progressively worse over the past 10 days. She denies focal abdominal symptoms/pain, changes in diet, changes in medications, fever/chills, shortness of breath, urinary symptoms but does endorse intermittent diarrhea and occasional chest thumping . On medication review patient is on Ozempic 0.25 mg weekly for the past 4 months, patient denies recent dose change. My evaluation, patient looked more comfortable without nausea/vomiting and lying in bed. Workup in the ED significant for troponin 0.05, magnesium 1.4, glucose 423, UDS negative, UA unremarkable other than proteinuria, negative for influenza, COVID-19, lactic acid 2.3, potassium 3.0, magnesium 1.4, CTA abdomen/pelvis revealed left kidney hypoenhancing areas which could be pyelonephritis, subacute ischemia, versus other. Additionally, patient's blood pressures were very elevated 200s over 100s. Dr. Fan recommended nitroprusside drip, blood pressures improving to 107/80 upon arrival to the ICU. CXR without acute abnormalities. She was given LR 1.9 L, Zofran, potassium, droperidol. Given these findings, ED provider discussed case with me and said to admit patient for intractable nausea/vomiting, electrolyte abnormalities, NSTEMI. #Intractable nausea/vomiting, resolved #Hypokalemia, Hypomagnesemia, resolved #Lactic acidosis, resolved ? Presented with progressively worsening intractable nausea/vomiting over the past 10 days without clear etiology. No recent changes in diet, medications, no focal abdominal symptoms. ? Overall, workup largely unremarkable. Free T4 is slightly elevated 2.85, but TSH normal suggesting false positive elevated free T4. See below. ? CTA abdomen/pelvis revealed hypoenhancing left kidney areas which could be pyelonephritis, subacute ischemia, versus other. However, no evidence of pyelonephritis, and no renal artery stenosis. UA unremarkable. Lactic acidosis resolved with fluid resuscitation. ? Patient is a diabetic, A1c 8.3%. Some concern for gastroparesis. ? Patient is also on Ozempic for the past 4 months, though on a low dose of 0.25 mg weekly. Will advise hold for now. ? Patient's nausea/vomiting resolved today,, tolerating p.o. intake without issues. ? GI evaluated patient, given improvement in symptoms we will pursue outpatient workup including possible gastric emptying study, EGD. ? Normal full respiratory panel, blood cultures, procalcitonin. ? Continue Protonix 40 mg nightly. #NSTEMI, type I #History of CABG 2019 #History of CVA with right-sided residual weakness #Suspected TIA ? Presented with symptoms of chest thumping intermittently over the past 10 days in the setting of blood pressure of 200s over 100s. ? Troponin up trended to 0.13 then plateaued, EKG with nonspecific ST wave changes concerning for ischemia. ? LHC and November 2024 did not show critical occlusive disease. ? ECHO LVEF 40 to 45% with severe wall motion abnormalities. ? Patient had a transient left upper extremity weakness, numbness and tingling in her lips and tongue this morning. CT head without acute findings. Symptoms resolved within 20 minutes. ? Continue aspirin 81 mg, Plavix 75 mg. ? Cardiology consulted, initially plan for LHC during admission. However, given JOSELUIS from contrast nephropathy, will plan for outpatient LHC. No chest pain, shortness of breath. ? Started hydralazine 25 mg 3 times daily, Imdur 30 mg, metoprolol succinate 25 mg. Will start rest of GDMT on outpatient basis as JOSELUIS resolves. ? Follow-up with cardiology within 1 week. #Type 1 diabetes ? Hemoglobin A1c 7.5%. Discontinue Ozempic for now due to nausea/vomiting. Continue insulin pump. #JOSELUIS #Contrast nephropathy ? Creatinine bumped from 1.5-2.7today in the setting of contrast. Patient has had similar renal insufficiency in the setting of contrast. ? Creatinine stabilized around 2.7, patient will follow-up closely with cardiology/PCP within 1 week for repeat lab work. #Elevated free T4 ? Free T4 slightly elevated 2.85, TSH normal. Likely false positive at this time due to normal TSH, but cannot rule out hyperthyroidism in the setting of nausea/vomiting. Will inquire if patient takes biotin in the morning. Initially treated with propranolol, Solu-Medrol. However repeat free T4 normal at 1.95. #GERD ?Continue PPI. #Anxiety/depression ? Continue home sertraline. Total time spent on discharge: 32 minutes on chart review, counseling, documentation, and direct care with patient. Exam Data for Last 24 hours Vital signs and Labs for Last 24 Hours: Temp Pulse Resp BP Pulse Ox O2 Del Method O2 Flow Rate 98 F 78 16 160/94 H 98 Room Air 2 03/04/25 12:00 03/04/25 12:00 03/04/25 12:00 03/04/25 12:00 03/04/25 12:00 03/04/25 15:00 03/03/25 00:00 Laboratory Results - last 24 hr 03/02/25 21:13: Thyroid Peroxidase Ab <9 03/03/25 15:15: Sodium 126 L, Potassium 3.1 L, Chloride 85 L, Carbon Dioxide 31 H, Anion Gap 13.1, BUN 43 H, Creatinine 2.60 H D, Estimated Creat Clear 27, Estimated GFR 19 L*, Est GFR ( Amer) 23 L D, Glucose 339 H D, Calcium 8.4 03/03/25 16:30: POC Glucose 339 H* 03/03/25 20:32: POC Glucose 237 H 03/03/25 21:22: Sodium 126 L, Potassium 3.4 L, Chloride 89 L, Carbon Dioxide 26, Anion Gap 14.4, BUN 46 H, Creatinine 2.70 H, Estimated Creat Clear 26, Estimated GFR 18 L*, Est GFR ( Amer) 22 L, Glucose 226 H D, Calcium 8.3 L 03/04/25 06:16: POC Glucose 394 H* 03/04/25 06:17: WBC 8.1, RBC 4.19 L, Hgb 11.8 L, Hct 34.3 L, MCV 81.9, MCH 28.2, MCHC 34.4, RDW 13.3, Plt Count 185 D, MPV 10.9 H, Neut % (Auto) 78.3, Lymph % (Auto) 14.2, [place] % (Auto) 5.2, Eos % (Auto) 1.7, Baso % (Auto) 0.2, Neut # (Auto) 6.4, Lymph # (Auto) 1.2, [place] # (Auto) 0.4, Eos # (Auto) 0.1, Baso # (Auto) 0.0, Sodium 122 L, Potassium 3.5, Chloride 89 L, Carbon Dioxide 28, Anion Gap 8.5, BUN 50 H, Creatinine 2.70 H, Estimated Creat Clear 26, Estimated GFR 18 L*, Est GFR ( Amer) 22 L, Glucose 355 H D, Calcium 7.6 L, Magnesium 2.6 H D, Total Bilirubin 0.4, AST 24, ALT 15, Alkaline Phosphatase 71, Total Protein 5.6 L, Albumin 2.3 L D, Globulin 3.3 H, Albumin/Globulin Ratio 0.7 L, TSH 1.47, Free T4 1.95 03/04/25 11:23: POC Glucose 176 H 03/04/25 14:51: Sodium 124 L, Potassium 3.7, Chloride 92 L, Carbon Dioxide 22, Anion Gap 13.7, BUN 56 H, Creatinine 2.90 H, Estimated Creat Clear 24, Estimated GFR 17 L*, Est GFR ( Amer) 20 L, Glucose 222 H D, Calcium 7.4 L I & O for Last 24 hours: Intake & Output 03/01/25 03/02/25 03/03/25 03/04/25 23:59 23:59 23:59 23:59 Intake Total 3070.921 / 3070.921 3897.667 / 3897.667 860 / 860 Output Total 300 / 300 Balance 3070.921 / 3070.921 3597.667 / 3597.667 860 / 860 Weight 63.503 kg 69.218 kg 70.307 kg Microbiology Reports for the Last 24 Hours: Microbiology 03/02/25 16:05 Blood Blood Culture - Preliminary NO GROWTH AFTER 24 HOURS 03/02/25 16:00 Blood Blood Culture - Preliminary NO GROWTH AFTER 24 HOURS Constitutional Constitutional: no acute distress and chronically ill appearing *Routine HEENT Exam Head: Present normocephalic Eye: Present EOMI and PERRL ENT: Present mucous membranes moist *Routine Neck Exam Neck: Present supple; Absent lymphadenopathy *Routine Respiratory Exam Respiratory: Present CTA bilaterally *Routine Cardiovascular Exam Cardiovascular: Present RRR *Routine Abdominal Exam Abdominal: Present soft and normoactive bowel sounds; Absent tenderness *Routine Extremities Exam Extremities: Absent cyanosis, clubbing or edema *Routine Skin Exam Skin: Present warm; Absent rash *Routine Neurological Exam Neurological: Present alert and oriented X3 Results Data Completed and Pending Labs on day of discharge: Labs from last 24 hours 03/04/25 03/04/25 03/04/25 14:51 11:23 06:17 WBC 8.1 RBC 4.19 L Hgb 11.8 L Hct 34.3 L MCV 81.9 MCH 28.2 MCHC 34.4 RDW 13.3 Plt Count 185 D MPV 10.9 H Neut % (Auto) 78.3 Lymph % (Auto) 14.2 [place] % (Auto) 5.2 Eos % (Auto) 1.7 Baso % (Auto) 0.2 Neut # (Auto) 6.4 Lymph # (Auto) 1.2 [place] # (Auto) 0.4 Eos # (Auto) 0.1 Baso # (Auto) 0.0 Sodium 124 L 122 L Potassium 3.7 3.5 Chloride 92 L 89 L Carbon Dioxide 22 28 Anion Gap 13.7 8.5 BUN 56 H 50 H Creatinine 2.90 H 2.70 H Estimated Creat Clear 24 26 Estimated GFR 17 L* 18 L* Est GFR ( Amer) 20 L 22 L Glucose 222 H D 355 H D POC Glucose 176 H Calcium 7.4 L 7.6 L Magnesium 2.6 H D Total Bilirubin 0.4 AST 24 ALT 15 Alkaline Phosphatase 71 Total Protein 5.6 L Albumin 2.3 L D Globulin 3.3 H Albumin/Globulin Ratio 0.7 L TSH 1.47 Free T4 1.95 Thyroid Peroxidase Ab 03/04/25 03/03/25 03/03/25 06:16 21:22 20:32 WBC RBC Hgb Hct MCV MCH MCHC RDW Plt Count MPV Neut % (Auto) Lymph % (Auto) [place] % (Auto) Eos % (Auto) Baso % (Auto) Neut # (Auto) Lymph # (Auto) [place] # (Auto) Eos # (Auto) Baso # (Auto) Sodium 126 L Potassium 3.4 L Chloride 89 L Carbon Dioxide 26 Anion Gap 14.4 BUN 46 H Creatinine 2.70 H Estimated Creat Clear 26 Estimated GFR 18 L* Est GFR ( Amer) 22 L Glucose 226 H D POC Glucose 394 H* 237 H Calcium 8.3 L Magnesium Total Bilirubin AST ALT Alkaline Phosphatase Total Protein Albumin Globulin Albumin/Globulin Ratio TSH Free T4 Thyroid Peroxidase Ab 03/03/25 03/03/25 03/02/25 16:30 15:15 21:13 WBC RBC Hgb Hct MCV MCH MCHC RDW Plt Count MPV Neut % (Auto) Lymph % (Auto) [place] % (Auto) Eos % (Auto) Baso % (Auto) Neut # (Auto) Lymph # (Auto) [place] # (Auto) Eos # (Auto) Baso # (Auto) Sodium 126 L Potassium 3.1 L Chloride 85 L Carbon Dioxide 31 H Anion Gap 13.1 BUN 43 H Creatinine 2.60 H D Estimated Creat Clear 27 Estimated GFR 19 L* Est GFR ( Amer) 23 L D Glucose 339 H D POC Glucose 339 H* Calcium 8.4 Magnesium Total Bilirubin AST ALT Alkaline Phosphatase Total Protein Albumin Globulin Albumin/Globulin Ratio TSH Free T4 Thyroid Peroxidase Ab <9 Preliminary micro results at discharge 03/02/25 16:05 Blood Culture - Preliminary Blood NO GROWTH AFTER 24 HOURS 03/02/25 16:00 Blood Culture - Preliminary Blood NO GROWTH AFTER 24 HOURS DS: Diagnosis Discharge Diagnosis (1) Nausea & vomiting: Status: Acute Code(s): R11.2 - Nausea with vomiting, unspecified Qualifiers: Vomiting type: unspecified Qualified Code(s): R11.2 - Nausea with vomiting, unspecified (2) HFrEF (heart failure with reduced ejection fraction): Status: Acute Code(s): I50.20 - Unspecified systolic (congestive) heart failure (3) NSTEMI (non-ST elevated myocardial infarction): Status: Acute Code(s): I21.4 - Non-ST elevation (NSTEMI) myocardial infarction (4) Hypertensive emergency: Status: Acute Code(s): I16.1 - Hypertensive emergency (5) Intractable nausea and vomiting: Status: Acute Code(s): R11.2 - Nausea with vomiting, unspecified Meds Home Medications and Allergies Home Medications ?Medication ?Instructions ?Recorded ?Confirmed ?Type 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,consulting systems engineer,cont #1 ea 06/01/24 03/04/25 Rx (Dexcom G7 Carpenter Supervisor) clopidogrel 75 mg tablet (Plavix) 75 mg PO DAILY #90 tabs 06/03/24 03/02/25 Rx lancets 28 gauge (FreeStyle #100 ea 06/03/24 03/04/25 History Lancets) empagliflozin 10 mg tablet 10 mg PO DAILY #90 tabs 07/20/24 03/02/25 Rx (Jardiance) insulin pump cartridge,auto #1 ea 09/10/24 03/04/25 History dose,BT,G6/G7 with controller subcutaneous (Omnipod 5 G6-G7 Intro Kit(Gen 5) subcutaneous cartridge and controller) insulin pump cart,auto,BT,G6/7 #5 ea 10/16/24 03/04/25 Rx (Omnipod 5 G6-G7 Pods (Gen 5) subcutaneous cartridge) rosuvastatin 10 mg tablet (Crestor) 10 mg PO DAILY #30 tabs 12/08/24 03/02/25 Rx inclisiran 284 mg/1.5 mL 284 mg (1.5 mL) SQ [id number] 2 12/14/24 03/02/25 Rx subcutaneous syringe (Leqvio) doses #1.5 mL 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 sensor (Dexcom G7 #9 ea 12/25/24 03/04/25 Rx Sensor device) semaglutide 0.25 mg or 0.5 mg (2 0.25 mg (0.368 mL) SQ WEEKLY #3 mL 02/12/25 03/02/25 Rx mg/3 mL) subcutaneous pen injector (Ozempic) Held on 03/04/25. Instructions: Resume on 03/18/25. This medication can cause nausea/vomiting, please follow-up with your PCP to discuss restarting. estradiol 0.01% (0.1 mg/gram) 1 appful vaginal DIRECTED 03/02/25 03/02/25 History vaginal cream (Estrace) insulin lispro 100 unit/mL 1 unit SQ DIRECTED 03/02/25 03/02/25 History subcutaneous solution (Admelog U-100 Insulin lispro) ondansetron 4 mg disintegrating 4 mg PO Q8HP PRN nausea and 03/02/25 03/02/25 History tablet vomiting sertraline 50 mg tablet 50 mg PO DAILY 03/02/25 03/02/25 History gabapentin 600 mg tablet 300 mg (1/2 x 600 mg) PO TID #90 03/04/25 03/02/25 Rx tabs hydralazine 25 mg tablet 25 mg PO TID 30 days #90 tabs 03/04/25 Rx isosorbide mononitrate 30 mg 30 mg PO DAILY 30 days #30 tabs 03/04/25 Rx tablet,extended release 24 hr metoprolol succinate 25 mg 25 mg PO DAILY 30 days #30 tabs 03/04/25 Rx tablet,extended release 24 hr pantoprazole 40 mg tablet,delayed 40 mg PO HS 30 days #30 tabs 03/04/25 Rx release promethazine 25 mg tablet 25 mg PO Q6H PRN nausea and 03/04/25 Rx vomiting #10 tabs New Prescriptions to Start Prescriptions: hydralazine Maritzaakala,Reji isosorbide mononitrate Dainla,Reji metoprolol succinate Maritzaakala,Reji pantoprazole Dainla,Reji promethazine Dainla,Reji Allergies Allergy/AdvReac Type Severity Reaction Status Date / Time atorvastatin Allergy Severe lowers Verified 02/22/25 10:57 blood pressure aspirin (ASPIRIN) Allergy Intermediate I-HIVES Verified 02/22/25 10:57 latex (LATEX) Allergy Unknown RASH, HIVES Verified 02/22/25 10:57 midodrine AdvReac Severe Unknown Verified 02/22/25 10:57 allergy reaction Discharge Plan Disposition Patient Disposition: Home, Self-Care Condition: Fair Discharge Order Discharge Orders: Discharge Order (Routine); Ordered 03/04/25 Ordered By: Reji Temple Follow up Plan Follow up with: Salazar Sheikh PA [Physician Completions Engineer, Cardiology] - 03/15/25 9:45 am Lima Shannon APRN [Nurse Practitioner, Family Practice] - 03/11/25 1:00 pm Prescriptions/Medication Reconciliation: New isosorbide mononitrate 30 mg Tablet Extended Release 24 Hr 30 mg PO DAILY 30 Days Qty: 30 0RF hydralazine 25 mg Tablet 25 mg PO TID 30 Days Qty: 90 0RF pantoprazole 40 mg Tablet,Delayed Release (Dr/Ec) 40 mg PO HS 30 Days Qty: 30 0RF metoprolol succinate 25 mg Tablet Extended Release 24 Hr 25 mg PO DAILY 30 Days Qty: 30 0RF promethazine 25 mg tablet 25 mg PO Q6H PRN (Reason: nausea and vomiting) Qty: 10 0RF Continued (DME) Dexcom G7 Carpenter Supervisor Misc See Rx Instructions .Route Qty: 1 6RF Rx Instructions: As directed (DME) lancets [FreeStyle Lancets] 28 gauge misc See Rx Instructions .ROUTE .MEDSUPPLY Qty: 100 Rx Instructions: As directed clopidogrel [Plavix] 75 mg tablet 75 mg PO DAILY Qty: 90 3RF (DME) Omnipod 5 G6-G7 Intro Kt(Gen5) Cartridge See Rx Instructions .ROUTE .MEDSUPPLY Qty: 1 Rx Instructions: As directed Leqvio 284 mg/1.5 mL syringe 284 mg SQ [id number] Qty: 1.5 2RF Jardiance 10 mg tablet 10 mg PO DAILY Qty: 90 3RF (DME) Omnipod 5 G6-G7 Pods (Gen 5) Cartridge See Rx Instructions .Route Qty: 5 6RF Rx Instructions: As directed rosuvastatin [Crestor] 10 mg tablet 10 mg PO DAILY Qty: 30 5RF (DME) Dexcom G7 Sensor Device See Rx Instructions .ROUTE .COMPLEX Qty: 9 0RF Dose Instruction: APPLY AND WEAR 1 SENSOR FOR 10 DAYS AND THEN CHANGE Rx Instructions: APPLY AND WEAR 1 SENSOR FOR 10 DAYS AND THEN CHANGE insulin lispro [Admelog U-100 Insulin lispro] 100 unit/mL solution 1 unit SQ DIRECTED Rx Instructions: Max dose 100 units daily, to use in the OmniPod estradiol [Estrace] 0.01 % (0.1 mg/gram) cream 1 appful vaginal DIRECTED Rx Instructions: Finger technique daily x 14 and then 3 times weekly. ondansetron 4 mg tablet,disintegrating 4 mg PO Q8HP PRN (Reason: nausea and vomiting) sertraline 50 mg tablet 50 mg PO DAILY Changed gabapentin 600 mg tablet 300 mg PO TID Qty: 90 0RF Held Ozempic 0.25 mg or 0.5 mg (2 mg/3 mL) pen injector 0.25 mg SQ WEEKLY Qty: 3 0RF Hold Instructions: Resume on 03/18/25. This medication can cause nausea/vomiting, please follow-up with your PCP to discuss restarting. Rx Instructions: for 4 weeks Discontinued omeprazole 20 mg capsule,delayed release(DR/EC) 20 mg PO DAILY Qty: 30 2RF Problem Reconciliation Problems Reviewed?: Yes Patient Discharge Instructions Additional Instructions: Reduce gabapentin dose until your renal insufficiency improves. Patient Instructions: Heart Failure, Acute Coronary Syndrome, DI for Constipation, DI for Esophageal Dysphagia, Stop Light Heart Failure Print Language: [place] Providers Primary Care Provider: Provider,Referral Admit Provider: Reji Temple Attending Provider: Reji Temple
--- NOTE | 2025-03-04 15:50 | CARE MANAGER ---
Addendum entered by Shavon Morris RN 03/04/25 15:53: Patient agreeable for Marcelo, clinical/order has been faxed. Original Note: Patient requires assistance with ambulation, and a cane would not provide enough support. Rollator has been ordered.
[2025-03-04 16:00] VITALS: BP 173/97; PULSE 80; RESP 16; TEMP 36.7; O2SAT 96
--- NOTE | 2025-03-05 10:15 | SW/DCPLANNER ---
Spoke with patient on the phone. Patient stated that she feels weak but okay. Patient stated that she is aware of her upcoming appointments. Patient stated that she was able to get her new medicine and that it was brought to her room before she was discharged. Patient stated that she has no concerns or questions at this time. Sergio Mehta
== END 2025-03-04 17:42 | disposition home or self-care (01) | DRG 280 ==
LOC: ER 15:47 → ICU 17:27 → 2ND 03-03 15:45
PROVIDERS: Nurse Practitioner; Physician Assistant; Admitting Provider Student in an Organized Health Care Education/Training Program; Emergency Provider Emergency Medicine; Visit Provider Student in an Organized Health Care Education/Training Program
DX: I21.4 Non-ST elevation (NSTEMI) myocardial infarction (principal); I50.21 Acute systolic (congestive) heart failure; I16.1 Hypertensive emergency; E87.1 Hypo-osmolality and hyponatremia; N17.9 Acute kidney failure, unspecified; G45.9 Transient cerebral ischemic attack, unspecified; I69.351 Hemiplegia and hemiparesis following cerebral infarction affecting right dominant side; E87.20 Acidosis, unspecified; I13.0 Hypertensive heart and chronic kidney disease with heart failure and stage 1 through stage 4 chronic kidney disease, or unspecified chronic kidney disease; N18.4 Chronic kidney disease, stage 4 (severe); R11.2 Nausea with vomiting, unspecified; E87.6 Hypokalemia; F32.A Depression, unspecified; E10.65 Type 1 diabetes mellitus with hyperglycemia; E10.43 Type 1 diabetes mellitus with diabetic autonomic (poly)neuropathy; R13.10 Dysphagia, unspecified; E86.0 Dehydration; K21.9 Gastro-esophageal reflux disease without esophagitis; F41.9 Anxiety disorder, unspecified; I25.10 Atherosclerotic heart disease of native coronary artery without angina pectoris; K59.09 Other constipation; E83.42 Hypomagnesemia; N14.11 Contrast-induced nephropathy; T50.8X5A Adverse effect of diagnostic agents, initial encounter; K31.84 Gastroparesis; K44.9 Diaphragmatic hernia without obstruction or gangrene; R09.A2 Foreign body sensation, throat; Z95.1 Presence of aortocoronary bypass graft; Z80.0 Family history of malignant neoplasm of digestive organs; Z90.49 Acquired absence of other specified parts of digestive tract; Z79.02 Long term (current) use of antithrombotics/antiplatelets; Z79.4 Long term (current) use of insulin; Z79.84 Long term (current) use of oral hypoglycemic drugs; Z79.85 Long-term (current) use of injectable non-insulin antidiabetic drugs; Z88.6 Allergy status to analgesic agent; Z91.040 Latex allergy status; Z88.8 Allergy status to other drugs, medicaments and biological substances
CPT/HCPCS: 0223U; 36415; 70450; 71045; 71275; 74174; 74177; 80048; 80053; 80307; 81001; 82009; 82550; 82803; 82962; 83036; 83605; 83690; 83735; 83880; 84100; 84145; 84436; 84439; 84443; 84445; 84479; 84484; 85025; 85378; 85651; 86140; 86376; 86800; 87040; 87636; 93005; 93306; 97163; 99285; J1650; J1790; J2405; J2470; J2550; J2765; J2919; J3475; J3480; J7030; J7060; J7120; Q9967

== ENCOUNTER 2025-03-06 09:31 | Emergency (ER) | payer OTHER, SELFPAY ==
[2025-03-06] VITALS (10 sets, daily range): BP systolic 114–166; BP diastolic 65–101; PULSE 93–105; RESP 15–26; TEMP 37; O2SAT 89–96; BMI 25.0
--- NOTE | 2025-03-06 09:39 | ECG_ITS ---
APPROVED REPORT Exam: Resting ECG HR:103 bpm ECG Measurements Heart Rate 103 AXES [place] 135 P 38 QRSd 106 QRS -10 QT 342 T 152 QTc 402 Conclusion SINUS TACHYCARDIA LEFT ATRIAL ENLARGEMENT [-0.15mV P-WAVE IN V1/V2] ST DEVIATION AND MODERATE T-WAVE ABNORMALITY, CONSIDER LATERAL ISCHEMIA [-0.1+ mV T-WAVE IN I/aVL/V5/V6] ABNORMAL ECG UNCONFIRMED REPORT Electronically signed by : Navin Urbano, 03/06/2025 15:24:25
--- OUTSIDE RECORDS SUMMARY | 2025-03-06 09:57 | XMS_ITS | Clinical Summary ---
Author Organization [facility] Address [address] [place] [address] Care Team Providers Care Nuisance Wildlife Control Operator Name Role Phone Reji Velazquez Primary Care Provider [phone] Abhijeet Espinoza MD Unavailable [phone] Allergies Active Allergy Reactions Criticality Noted Date [...] Description 03/26/2025 10:00 AM EST Office Visit [facility] [address] [place] [id number] Noé Kinsey MD [address] [place] [phone] Health Maintenance Due Date Last Done [...] 2) 2019 [facility]-Breast Cancer Screening 01/27/2021 01/27/2019 [id number] Vaccine (1 - 20 - season) 2025 [...] femaleDate of Service: 01/27/2019 eferring Phy:Thelma ValerioAccount: [id number] Verified By: Caitlyn Frazier M.D. on 01/28/2019 [...] on Jan 28 2019 3:57P Transcribed by: [facility] on Jan 28 2019 3:57P Dictated by: CAITLYN FRAZIER M.D. on Jan 28 2019 3:57P Patient Name:Janay Ellis : 1970 Age: 48 Gender: femaleDate of Service: 01/27/2019 eferring Phy:Thelma ValerioAccount: [id number] Thelma Valerio , FINAL REPORT PROCEDURE: Tomosynthesis [...] on Jan 28 2019 3:57P Transcribed by: [facility] on Jan 28 2019 3:57P Dictated by: CAITLYN FRAZIER M.D. on Jan 28 2019 3:57P Patient Name:Janay Ellis : 1970 Age: 48 Gender: femaleDate of Service:01/27/2019 eferring Phy:Thelma ValerioAccount: [id number] Thelma Valerio , FINAL REPORT PROCEDURE: Tomosynthesis [...] Gender: femaleDate of Service:01/27/2019 eferring Phy:Thelma ValerioAccount: [id number] Verified By: Caitlyn Frazier M.D. on 01/28/2019 at 03:52:08 PM Page 2 of 2 [facility] Provider IMG BI PROCEDURES Final Resu lt [...] Recently Relevant to Health Maintenance Insurance [employer] [facility] MEDICAID Care Teams Nuisance Wildlife Control Operator Relationship Specialty Start Date End Date Reji Velazquez DO [address] [place] [id number] PCP - General 07/28/24 Abhijeet Espinoza MD [address] [place] [address] 07/28/24
--- NOTE | 2025-03-06 10:06 | XR_ITS ---
PROCEDURE INFORMATION: Exam: XR Chest Exam date and time: 03/06/2025 10:13 AM Age: 54 years old Clinical indication: Dyspnea TECHNIQUE: Imaging protocol: Radiologic exam of the chest. Views: 1 view. COMPARISON: CT ANGIO CHEST 03/03/2025 11:25 AM FINDINGS: Lungs: Opacity in the left base may represent atelectasis or pneumonia. Atelectasis in the right base Pleural spaces: Unremarkable. No pleural effusion. No pneumothorax. Heart/Mediastinum: Unremarkable. No cardiomegaly. Bones/joints: Median sternotomy IMPRESSION: Opacity in the left base may represent atelectasis or pneumonia.
--- NOTE | 2025-03-06 10:08 | HMH.EDGENADL ---
Discharge Plan Disposition Patient Disposition: Xfer Other Prescriptions Prescriptions: No Action (DME) Dexcom G7 [employer] Psych[employer]rist Misc See Rx Instructions .Route Qty: 1 6RF Rx Instructions: As directed (DME) lancets [FreeStyle Lancets] 28 gauge misc See Rx Instructions .ROUTE .MEDSUPPLY Qty: 100 Rx Instructions: As directed clopidogrel [Plavix] 75 mg tablet 75 mg PO DAILY Qty: 90 3RF (DME) Omnipod 5 G6-G7 Intro Kt(Gen5) Cartridge See Rx Instructions .ROUTE .MEDSUPPLY Qty: 1 Rx Instructions: As directed Leqvio 284 mg/1.5 mL syringe 284 mg SQ [id number] Qty: 1.5 2RF Jardiance 10 mg tablet 10 mg PO DAILY Qty: 90 3RF (DME) Omnipod 5 G6-G7 Pods (Gen 5) Cartridge See Rx Instructions .Route Qty: 5 6RF Rx Instructions: As directed rosuvastatin [Crestor] 10 mg tablet 10 mg PO DAILY Qty: 30 5RF (DME) Dexcom G7 Sensor Device See Rx Instructions .ROUTE .COMPLEX Qty: 9 0RF Dose Instruction: APPLY AND WEAR 1 SENSOR FOR 10 DAYS AND THEN CHANGE Rx Instructions: APPLY AND WEAR 1 SENSOR FOR 10 DAYS AND THEN CHANGE Ozempic 0.25 mg or 0.5 mg (2 mg/3 mL) pen injector 0.25 mg SQ WEEKLY Qty: 3 0RF Rx Instructions: for 4 weeks insulin lispro [Admelog U-100 Insulin lispro] 100 unit/mL solution 1 unit SQ DIRECTED Rx Instructions: Max dose 100 units daily, to use in the OmniPod estradiol [Estrace] 0.01 % (0.1 mg/gram) cream 1 appful vaginal DIRECTED Rx Instructions: Finger technique daily x 14 and then 3 times weekly. ondansetron 4 mg tablet,disintegrating 4 mg PO Q8HP PRN (Reason: nausea and vomiting) sertraline 50 mg tablet 50 mg PO DAILY isosorbide mononitrate 30 mg Tablet Extended Release 24 Hr 30 mg PO DAILY 30 Days Qty: 30 0RF hydralazine 25 mg Tablet 25 mg PO TID 30 Days Qty: 90 0RF pantoprazole 40 mg Tablet,Delayed Release (Dr/Ec) 40 mg PO HS 30 Days Qty: 30 0RF metoprolol succinate 25 mg Tablet Extended Release 24 Hr 25 mg PO DAILY 30 Days Qty: 30 0RF promethazine 25 mg tablet 25 mg PO Q6H PRN (Reason: nausea and vomiting) Qty: 10 0RF gabapentin 600 mg tablet 300 mg PO TID Qty: 90 0RF Referrals Follow up/Referrals: Lima Shannon APRN [Primary Care Provider, Family Practice] - See instructions Clinical Impressions Clinical Impression: Nausea & vomiting, Generalized weakness, JOSELUIS (acute kidney injury), Pneumonia, Non-ST elevation MN (NSTEMI), Acute hyponatremia, Acute hypoxic respiratory failure Stand Alone Forms Stand Alone Forms: Transfer Record - ED Print Language Print Language: Norwegian Discharge ED Provider: Jaz Urbano General Adult HPI General Chief complaint: Weakness Stated complaint: Weakness Time Seen by Provider: 03/06/25 09:56 Mode of Arrival: EMS Source of Information: Patient Description of Symptoms (Recalled from ER Triage Doc. by RN): Patient states she is feeling very weak this morning and is unable to walk. Came in by EMS this morning after a fall this morning- denies any injury after fall. Patient was just discharged from hospital yesterday, states she was walking just fine when she was discharged from the hospital. States she was supposed to see GI after being discharged from hospital. History of Present Illness HPI narrative: Patient is a 54-year-old female present today with multiple complaints. She has had multiple ED visits recently for intractable nausea and vomiting was recently admitted for this and discharged yesterday. At that time she had a hypertensive emergency had a slight elevation in her troponin and was started on sodium nitroprusside and ultimately was improved with symptomatic medications. She had a heart cath in November of this year which had no significant interventions and had medical management. She has an outpatient follow-up with Dr. Fan after recent hospitalization. She states after being discharged she was feeling better but then developed some nausea and vomiting and generalized weakness and states she could not move which is what prompted her to come to the emergency department today. Denies any chest pain abdominal pain pain anywhere to states she is nauseated and having generalized weakness. Related Data Home Medications ?Medication ?Instructions ?Recorded ?Confirmed lancets 28 gauge (FreeStyle #100 ea 06/03/24 03/04/25 Lancets) insulin pump cartridge,auto #1 ea 09/10/24 03/04/25 dose,BT,G6/G7 with controller subcutaneous (Omnipod 5 G6-G7 Intro Kit(Gen 5) subcutaneous cartridge and controller) estradiol 0.01% (0.1 mg/gram) 1 appful vaginal DIRECTED 03/02/25 03/02/25 vaginal cream (Estrace) insulin lispro 100 unit/mL 1 unit SQ DIRECTED 03/02/25 03/02/25 subcutaneous solution (Admelog U-100 Insulin lispro) ondansetron 4 mg disintegrating 4 mg PO Q8HP PRN nausea and 03/02/25 03/02/25 tablet vomiting sertraline 50 mg tablet 50 mg PO DAILY 03/02/25 03/02/25 Previous Rx's ?Medication ?Instructions ?Recorded 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,traveling passenger agent,cont #1 ea 06/01/24 (Dexcom G7 School Psych[employer]rist) clopidogrel 75 mg tablet (Plavix) 75 mg PO DAILY #90 tabs 06/03/24 empagliflozin 10 mg tablet 10 mg PO DAILY #90 tabs 07/20/24 (Jardiance) insulin pump cart,auto,BT,G6/7 #5 ea 10/16/24 (Omnipod 5 G6-G7 Pods (Gen 5) subcutaneous cartridge) rosuvastatin 10 mg tablet (Crestor) 10 mg PO DAILY #30 tabs 12/08/24 inclisiran 284 mg/1.5 mL 284 mg (1.5 mL) SQ [id number] 2 12/14/24 subcutaneous syringe (Leqvio) doses #1.5 mL 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 sensor (Dexcom G7 #9 ea 12/25/24 Sensor device) semaglutide 0.25 mg or 0.5 mg (2 0.25 mg (0.368 mL) SQ WEEKLY #3 mL 02/12/25 mg/3 mL) subcutaneous pen injector (Ozempic) Held on 03/04/25. Instructions: Resume on 03/18/25. This medication can cause nausea/vomiting, please follow-up with your PCP to discuss restarting. gabapentin 600 mg tablet 300 mg (1/2 x 600 mg) PO TID #90 03/04/25 tabs hydralazine 25 mg tablet 25 mg PO TID 30 days #90 tabs 03/04/25 isosorbide mononitrate 30 mg 30 mg PO DAILY 30 days #30 tabs 03/04/25 tablet,extended release 24 hr metoprolol succinate 25 mg 25 mg PO DAILY 30 days #30 tabs 03/04/25 tablet,extended release 24 hr pantoprazole 40 mg tablet,delayed 40 mg PO HS 30 days #30 tabs 03/04/25 release promethazine 25 mg tablet 25 mg PO Q6H PRN nausea and 03/04/25 vomiting #10 tabs Allergies Allergy/AdvReac Type Severity Reaction Status Date / Time atorvastatin Allergy Severe lowers Verified 02/22/25 10:57 blood pressure aspirin (ASPIRIN) Allergy Intermediate I-HIVES Verified 02/22/25 10:57 latex (LATEX) Allergy Unknown RASH, HIVES Verified 02/22/25 10:57 midodrine AdvReac Severe Unknown Verified 02/22/25 10:57 allergy reaction PFSH PFS Disclaimer: The information contained in this section may have been updated after the patient was seen, as this information can be updated by other users. 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 (Updated 03/06/25 @ 12:34 by Jaz Urbano MD) Anxiety CKD (chronic kidney disease) stage 4, GFR 15-29 ml/min Breast cancer screening Colon cancer screening Diabetic peripheral neuropathy Kidney insufficiency HLD (hyperlipidemia) WARREN (dyspnea on exertion) CAD (coronary artery disease) PTSD (post-traumatic stress disorder) History of type 1 diabetes mellitus Gastroparesis diabeticorum History of gastroesophageal reflux (GERD) History of stroke Cholecystectomy planned Hypotension Angina pectoris Surgical History History of heart surgery Hx of appendectomy Social History Smoking Status: Never smoker alcohol intake: never substance use type: denies use current occupational status: unemployed Travel in the last 8 weeks?: None Have you lived/traveled outside [place] in past 30 days?: No Contact w/someone who lives/traveled outside US past 30 days?: No Exposure to someone with infectious disease in past 14 days?: No Do you have a fever (greater than 100.4 F or 38 C)?: No Have you tested positive for COVID-19?: No Exposed to someone with COVID-19 in past 14 days?: No Do you have a sore throat?: No Do you have a cough?: No Do you have any weakness?: No Do you have any diarrhea?: No Are you experiencing any unusual bleeding?: No Do you have any muscle aches/pain?: No Do you have any abdominal pain?: No Are you experiencing loss of taste or smell?: No Other 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 Have you received the Flu Vaccine for this season: No Have you received the Pneumonia Vaccine: No ROS Obtained: Yes All systems reviewed & no additional complaints except as documented Physical Exam General General appearance: alert and in no apparent distress Eye Eye exam: Present other (Periorbital edema bilaterally) Respiratory Respiratory exam: Present normal lung sounds bilaterally; Absent respiratory distress Cardiovascular Cardiovascular exam: Present regular rate and normal rhythm Abdominal Exam Abdominal exam: Present soft; Absent distention or tenderness Neurological Exam Neurological exam: Present alert and oriented X3 Medical Decision Making Medical Records Screening: Per USPSTF and CDC recommendations, given the prevalence of disease in our region, it is our hospital?s policy to screen for HIV and viral Hepatitis for all patients aged 18 and over and those with ongoing risk factors. Nick Inquiry Pt receiving controlled substance: No Vital Signs: 03/06/25 09:32 03/06/25 09:51 03/06/25 10:00 Temperature 98.6 F Temperature Source Oral Pulse Rate 104 H 103 H Pulse Rate [Right Brachial] 105 H Respiratory Rate 18 26 H 15 Blood Pressure 155/89 H 145/72 H Blood Pressure [Right Arm] 166/101 H Blood Pressure Mean [Right Arm] 122 Blood Pressure Source [Right Arm] Automatic Cuff Blood Pressure Position [Right Arm] Sitting 02 Sat by Pulse Oximetry 89 L 94 L 94 L Oxygen Delivery Method Room Air Nasal Cannula Nasal Cannula Oxygen Flow Rate (LPM) 4 4 03/06/25 10:30 03/06/25 11:00 03/06/25 11:30 Temperature Temperature Source Pulse Rate 102 H 99 H 95 H Pulse Rate [Right Brachial] Respiratory Rate 24 22 24 Blood Pressure 136/72 141/76 H 130/67 Blood Pressure [Right Arm] Blood Pressure Mean [Right Arm] Blood Pressure Source [Right Arm] Blood Pressure Position [Right Arm] 02 Sat by Pulse Oximetry 93 L 96 96 Oxygen Delivery Method Nasal Cannula Nasal Cannula Nasal Cannula Oxygen Flow Rate (LPM) 4 4 4 03/06/25 12:00 Temperature Temperature Source Pulse Rate 95 H Pulse Rate [Right Brachial] Respiratory Rate 25 H Blood Pressure 132/67 Blood Pressure [Right Arm] Blood Pressure Mean [Right Arm] Blood Pressure Source [Right Arm] Blood Pressure Position [Right Arm] 02 Sat by Pulse Oximetry 95 Oxygen Delivery Method Nasal Cannula Oxygen Flow Rate (LPM) 4 Lab Data Lab results reviewed: Yes I reviewed the patient's lab results. Lab Results 03/06/25 09:49: WBC 6.7, RBC 4.73, Hgb 13.3, Hct 38.6, MCV 81.6, MCH 28.1, MCHC 34.5, RDW 13.5, Plt Count 207, MPV 11.1 H, Neut % (Auto) 85.0 H, Lymph % (Auto) 7.0 L, [place] % (Auto) 5.8, Eos % (Auto) 1.3, Baso % (Auto) 0.3, Neut # (Auto) 5.7, Lymph # (Auto) 0.5 L, [place] # (Auto) 0.4, Eos # (Auto) 0.1, Baso # (Auto) 0.0, Total Counted 100, Neutrophils % (Manual) 88 H, Lymphocytes % (Manual) 6 L, Monocytes % (Manual) 4, Eosinophils % (Manual) 2, Platelet Estimate Normal, RBC Morphology Normal, Sodium 126 L, Potassium 3.8, Chloride 92 L, Carbon Dioxide 25, Anion Gap 12.8, BUN 78 H D, Creatinine 5.50 H D, Estimated Creat Clear 12, Estimated GFR 8 L*, Est GFR ( Amer) 10 L* D, Glucose 117 H, Calcium 8.1 L, Phosphorus 4.0, Magnesium 2.1 D, Total Bilirubin 0.3, AST 33 D, ALT 19 D, Alkaline Phosphatase 76, Troponin I 2.30 H, NT-Pro-B Natriuret Pep 82877 H, Total Protein 6.6, Albumin 2.8 L, Globulin 3.8 H, Albumin/Globulin Ratio 0.7 L 03/06/25 10:09: VBG pH 7.34, VBG pCO2 45.8, VBG pO2 46.6 H, VBG HCO3 24.3, VBG Total CO2 25.7, VBG O2 Saturation 81.6 H, VBG Base Excess -1.4, VBG Lactic Acid 2.5 H 03/06/25 09:49 03/06/25 09:49 Orders (Tests/Meds): ED MEDICATIONS Generic Name Dose Route Start Last Admin Trade Name Freq PRN Reason Stop Dose Admin Vancomycin/PEG/NADA/Lysine/Water 1.25 gm in 250 mls @ 125 mls/hr 03/06/25 11:30 Vancomycin 1.25gm/250ml (Peg) Premix IV 03/06/25 13:29 ONCE ONE Miscellaneous 1 each 03/06/25 11:15 03/06/25 12:25 Vancomycin Consult Request NOTAPPLIC 04/05/25 11:14 1 each CONSULT PHARMACY [facility] Administration Discontinued Medications Generic Name Dose Route Start Last Admin Trade Name Freq PRN Reason Stop Dose Admin Cefepime HCl 2 gm/ Sodium 100 mls @ 200 mls/hr 03/06/25 11:11 03/06/25 12:25 Chloride IV 03/06/25 11:40 Infused ONCE ONE Infusion Azithromycin 500 mg/ Sodium 250 mls @ 250 mls/hr 03/06/25 11:12 03/06/25 12:23 Chloride IV 03/06/25 11:13 250 mls/hr ONCE ONE Administration Ondansetron HCl 4 mg 03/06/25 10:06 03/06/25 10:21 Ondansetron 4mg/2ml Vial IV 03/06/25 10:07 4 mg ONCE ONE Administration ORDERS Category Date Time Status CXR --portable [XR chest portable] Stat Exams 03/06/25 10:06 Completed BNP [NT Pro Brain Natriuretic Pep.] Stat Lab 03/06/25 09:49 Completed CBC w/Auto Diff [Complete Blood Count Auto Diff] Stat Lab 03/06/25 09:49 Completed CMP [Comprehensive Metabolic Panel] Stat Lab 03/06/25 09:49 Completed Magnesium Stat Lab 03/06/25 09:49 Completed Phosphorous Stat Lab 03/06/25 09:49 Completed Trop I [Troponin I] Stat Lab 03/06/25 09:49 Completed Troponin I Q3H Lab 03/06/25 13:15 Ordered Troponin I Q3H Lab 03/06/25 16:15 Ordered Blood Culture Stat Micro 03/06/25 11:47 Received Venous Blood Gas Stat RT 03/06/25 10:09 Completed Medical Decision Narrative: 54-year-old with above history and physical. EKG was performed I personally interpreted shows a ventricular rate of 103 sinus rhythm no acute ischemic changes noted there are high lateral T wave inversions that are consistent with old EKGs but no acute ischemic changes noted specifically from an ST standpoint no significant conduction abnormalities noted. Patient's exam is benign aside from having a triage oxygen saturation of 89% and some periorbital edema is possible she has some pulmonary edema with fluid resuscitation recently in the hospital. Will get a chest x-ray I am holding off on IV fluid resuscitation and administering Zofran for nausea and vomiting. Additionally she has generalized weakness which could be from electrolyte abnormalities and just overall deconditioning. Will reassess after her workup is complete Reassessment 12:31 PM patient has numerous abnormalities ongoing at this point including a creatinine of 5.5. She was recently admitted in the hospital with acute kidney injury where creatinine was 2.0 up from 1.5 baseline and she was discharged with a creatinine of 2.9. Additionally patient has significantly elevated troponin at 2.3. Her troponin peaked in the hospital at 0.13 patient has no signs or symptoms of ischemia at this point this is likely secondary to her kidney injury as well as a type II NSTEMI. Does not consistent with a type I plaque rupture. Chest x-ray was performed which I personally interpreted which shows a left lower lobe opacity could represent pneumonia but is most likely volume overloaded or pulmonary edema. She does have a BNP of 33,000 and has periorbital edema on exam. Given his left lower lobe opacity however will cover for possible hospital-acquired pneumonia Forbes cefepime and azithromycin have been initiated cultures have been sent. No evidence of sepsis at this point she does have a slight oxygen requirement with presenting oxygenation at 89% and currently on 2 L nasal cannula satting comfortably. Given the fact that we do not have nephrology here at [place] and with her significant kidney injury at this point I decided that she needed to be transferred where we have that type of coverage. I spoke with Dr. Craft at [facility] who agreed to accept this patient for further management. Critical Care Critical Care Time Critical Care Time: Yes Attestation: On 03/06/25, the high probability of a clinically significant, sudden or life threatening deterioration of the following system(s) required my full and direct attention, intervention and personal management. The time I documented below is in addition to time spent performing reported procedures but includes the following listed in this critical care notation. Total Time Total Critical Care Time: 65
[2025-03-06 10:17] LABS: VBG HCO3 24.3 mmol/L (23-30); VBG PCO2 45.8 mmol/L (35-51); VBG PH 7.34 mmol/L (7.31-7.41); VBG PO2 46.6 mmol/L (28-40)
[2025-03-06 10:18] LABS: Lactate Venous 2.5 mmol/L (0.4-2.0)
[2025-03-06] MEDS: ONDANSETRON 4MG/2ML VIAL 4 MG IV (10:21)
[2025-03-06 10:24] LABS: Hematocrit 38.6 % (37.0-47.0); Hemoglobin 13.3 g/dL (12.2-16.2); Immature Granulocytes % 0.6 %; Mean Corpuscular HGB Conc 34.5 g/dL (31.8-35.4); Mean Corpuscular Hemoglobin 28.1 pg (27.0-31.2); Mean Corpuscular Volume 81.6 fl (81-99); Nucleated Red Blood Cells % 0 %; Platelet Count 207 K/mm3 (142-424); Red Blood Count 4.73 M/mm3 (4.20-5.40); Red Cell Distribution Width-SD 39.8 fL; White Blood Count 6.7 K/mm3 (4.8-10.8)
[2025-03-06 10:35] LABS: Magnesium 2.1 mg/dl (1.6-2.3); Phosphorous 4.0 mg/dl (2.5-4.5)
[2025-03-06 10:38] LABS: Alanine Aminotransferase 19 U/L (12-78); Albumin Level 2.8 g/dl (3.5-5.0); Albumin/Globulin Ratio 0.7 (1.1-1.8); Alkaline Phosphatase 76 U/L (38-126); Anion Gap 12.8 mEq/L (5-15); Aspartate Amino Transferase 33 U/L (14-36); Bilirubin,Total 0.3 mg/dl (0.2-1.3); Blood Urea Nitrogen 78 mg/dl (7-17); Calcium 8.1 mg/dl (8.4-10.2); Carbon Dioxide 25 mmol/L (22.0-30.0); Chloride 92 mmol/L (98-107); Creatinine Clearance Estimated 12 mL/min (50-200); Estimated Glomerular Filt Rate 8 ml/min (>60); GFR (African American) 10 ML/MIN (>60); Globulin 3.8 g/dL (1.3-3.2); Glucose 117 mg/dl (74-100); Potassium 3.8 mmoL/L (3.5-5.1); Sodium 126 mmol/L (136-145); Total Protein,Serum 6.6 g/dl (6.3-8.2)
[2025-03-06 10:49] LABS: Creatinine,Serum 5.50 mg/dl (0.52-1.04)
[2025-03-06 10:54] LABS: Troponin I 2.30 ng/ml (0.00-0.034)
[2025-03-06 11:33] LABS: NT Pro Brain Natriuretic Pep. 33300 pg/mL (0-125)
[2025-03-06 11:35] LABS: RBC Morphology Normal; Total Cells Counted 100
--- NOTE | 2025-03-06 11:40 | PC.NURSE ---
currently on phone with [facility] per Dr Urbano for pt transfer to [place] for JOSELUIS and pneumonia
--- NOTE | 2025-03-06 11:45 | INFXCTL.NOTE ---
[facility] advised they will call back.
[2025-03-06] MEDS: CEFEPIME HCL 2 GM in 0.9 % SODIUM CHLORIDE 100 ML IV (11:48)
[2025-03-06] MEDS: AZITHROMYCIN 500 MG in 0.9 % SODIUM CHLORIDE 250 ML 250 MG IV (12:23)
[2025-03-06] MEDS: VANCOMYCIN CONSULT REQUEST 1 EACH NOTAPPLIC (12:25)
[2025-03-06] MEDS: VANCOMYCIN/WATER FOR INJ (PEG) 1.25 GM/250 ML PIGGYBACK IV (12:50)
[2025-03-06 14:19] LABS: Reflex Lactic Add Lactic Reflex
== END 2025-03-06 13:13 | disposition other institution (70) ==
PROVIDERS: Emergency Provider Student in an Organized Health Care Education/Training Program; PCP Family Medicine
DX: J96.01 Acute respiratory failure with hypoxia (principal); J18.9 Pneumonia, unspecified organism; E87.1 Hypo-osmolality and hyponatremia; N17.9 Acute kidney failure, unspecified; R79.89 Other specified abnormal findings of blood chemistry; I21.4 Non-ST elevation (NSTEMI) myocardial infarction; R11.2 Nausea with vomiting, unspecified; R53.1 Weakness; I11.0 Hypertensive heart disease with heart failure; I50.20 Unspecified systolic (congestive) heart failure; I12.9 Hypertensive chronic kidney disease with stage 1 through stage 4 chronic kidney disease, or unspecified chronic kidney disease; N18.4 Chronic kidney disease, stage 4 (severe); E10.9 Type 1 diabetes mellitus without complications
CPT/HCPCS: 71045; 80053; 82803; 83735; 83880; 84100; 84484; 85007; 85025; 87040; 93005; 96365; 96366; 96367; 96375; 99285; 99291; J0456; J0692; J2405; J3375; J7050

== ENCOUNTER 2025-03-18 09:33 | Outpatient (CLI) | payer OTHER, SELFPAY ==
[2025-03-18 20:11] LABS: Hematocrit 31.9 % (37.0-47.0); Hemoglobin 10.5 g/dL (12.2-16.2); Immature Granulocytes % 0.3 %; Mean Corpuscular HGB Conc 32.9 g/dL (31.8-35.4); Mean Corpuscular Hemoglobin 28.7 pg (27.0-31.2); Mean Corpuscular Volume 87.2 fl (81-99); Nucleated Red Blood Cells % 0 %; Platelet Count 255 K/mm3 (142-424); Red Blood Count 3.66 M/mm3 (4.20-5.40); Red Cell Distribution Width-SD 48.7 fL; White Blood Count 6.0 K/mm3 (4.8-10.8)
[2025-03-18 20:40] LABS: Alanine Aminotransferase 20 U/L (12-78); Albumin Level 4.2 g/dl (3.5-5.0); Albumin/Globulin Ratio 1.5 (1.1-1.8); Alkaline Phosphatase 63 U/L (38-126); Anion Gap 14.5 mEq/L (5-15); Aspartate Amino Transferase 27 U/L (14-36); Bilirubin,Total 0.4 mg/dl (0.2-1.3); Blood Urea Nitrogen 16 mg/dl (7-17); Calcium 7.9 mg/dl (8.4-10.2); Carbon Dioxide 23 mmol/L (22.0-30.0); Chloride 103 mmol/L (98-107); Creatinine,Serum 1.60 mg/dl (0.52-1.04); Estimated Glomerular Filt Rate 33 ml/min (>60); GFR (African American) 40 ML/MIN (>60); Globulin 2.8 g/dL (1.3-3.2); Glucose 240 mg/dl (74-100); Potassium 4.5 mmoL/L (3.5-5.1); Sodium 136 mmol/L (136-145); Total Protein,Serum 7.0 g/dl (6.3-8.2)
[2025-03-18 20:49] LABS: NT Pro Brain Natriuretic Pep. 24600 pg/mL (0-125)
== END 2025-03-18 23:59 ==
LOC: LAB.DROPOF 03-22 09:34
PROVIDERS: PCP Family Medicine; Visit Provider Family Medicine
DX: N18.9 Chronic kidney disease, unspecified (principal); R19.00 Intra-abdominal and pelvic swelling, mass and lump, unspecified site
CPT/HCPCS: 80053; 83880; 85025

== ENCOUNTER 2025-03-22 14:34 | Inpatient (IN) | payer OTHER, SELFPAY ==
[2025-03-22] VITALS (10 sets, daily range): BP systolic 148–189; BP diastolic 83–117; PULSE 89–105; RESP 16–95; TEMP 36.4–36.9; O2SAT 92–100; BMI 30.9; BMI 28.5
--- NOTE | 2025-03-22 14:34 | ED_ITS ---
<Statement entered by Jaz Urbano MD - 03/23/25 07:51> I was consulted by the VALENCIA, and we discussed the complexity of the problems being addressed. I approved the treatment and management plan for this patient's care in the emergency department, thus performing a substantive portion of the medical decision making. Jaz Urbano MD, KIN, FACEP Discharge Plan Disposition Patient Disposition: Admitted Condition: Fair Clinical Impressions Clinical Impression: WARREN (dyspnea on exertion), Kidney insufficiency, Congestive heart failure Discharge ED Provider: Jaz Urbano HPI General Chief Complaint: Shortness of Breath/Dyspnea Stated Complaint: SOA Time Seen by Provider: 03/22/25 14:42 History of Present Illness HPI narrative: 54-year-old female presents to the ED today for complaint of 2 days of swelling in her bilateral lower extremities, right is worse than left. She is having some abdominal pain as well. She has renal failure that was recently diagnosed and she was sent to [facility] for this. When EMS arrived on scene she was 91% on room air. They put her on 4 L nasal cannula and she got up to 95%. When she got to the emergency department she was 89% on room air. Patient is still short of air we placed her back on 4 L. She is having chest pain and pressure she says feels like an elephant is sitting on her chest. She says the symptoms started 2 days ago. She also took off her insulin pump because she was dropping too low. Her blood sugar here was 342. Patient also has history of CABG, several strokes, diabetes, appendectomy and a gallbladder removal. She tells me she is allergic to IVP dye and latex. Related Data Home Medications ?Medication ?Instructions ?Recorded ?Confirmed lancets 28 gauge (FreeStyle #100 ea 06/03/24 03/18/25 Lancets) insulin pump cartridge,auto #1 ea 09/10/24 03/18/25 dose,BT,G6/G7 with controller subcutaneous (Omnipod 5 G6-G7 Intro Kit(Gen 5) subcutaneous cartridge and controller) estradiol 0.01% (0.1 mg/gram) 1 appful vaginal DIRE CTED 03/02/25 03/18/25 vaginal cream (Estrace) insulin lispro 100 unit/mL 1 unit SQ DIRECTED 03/0203/18/25 subcutaneous solution (Admelog U-100 Insulin lispro) ondansetron 4 mg disintegrating 4 mg PO Q8HP PRN nause a and 03/02/25 03/18/25 tablet vomiting sertraline 50 mg tablet 50 mg PO DAILY 03/02/2503/06 omeprazole 20 mg capsule,delayed 20 mg PO DAILY 03/18/25 release torsemide 5 mg tablet 5 mg PO DAILY 03/18/2503/18 Previous Rx's ?Medication ?Instructions ?Recorded 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 Instructions: Resume on 03/18/25. This medication can cause nausea/vomiting, please follow-up with your PCP to discuss restarting. gabapentin 600 mg tablet 300 mg (1/2 x 600 mg) PO TID #90 03/04/25 tabs hydralazine 25 mg tablet 25 mg PO TID 30 days #90 tab s 03/04/25 isosorbide mononitrate 30 mg 30 mg PO DAILY 30 days #3 0 tabs 03/04/25 tablet,extended release 24 hr metoprolol succinate 25 mg 25 mg PO DAILY 30 days #30 tabs 03/04/25 tablet,extended release 24 hr pantoprazole 40 mg tablet,delayed 40 mg PO HS 30 days #30 tabs 03/04/25 release insulin pump cart,auto,BT,G6/7 #5 ea 03/11/25 (Omnipod 5 G6-G7 Pods (Gen 5) subcutaneous cartridge) fluticasone propionate 50 1 spray intranasal DAILY #16 grams 03/18/25 mcg/actuation nasal spray,suspension (Flonase Allergy Relief) Allergies Allergy/AdvReac Type Severity Reaction Status Date / Time atorvastatin Allergy Severe lowers Verified 03/18/25 13:29 blood pressure aspirin (ASPIRIN) Allergy Intermediate I-HIVES Verified 03/18/25 13:29 latex (LATEX) Allergy Unknown RASH, HIVES Verified 03/18/25 13:29 midodrine AdvReac Severe Unknown Verified 03/18/25 13:29 allergy reaction PFSH [facility] Disclaimer: The information contained in this section may have been updated after the patient was seen, as this information can be updated by other users. 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 Anxiety CKD (chronic kidney disease) stage 4, GFR 15-29 ml/min Breast cancer screening Colon cancer screening Diabetic peripheral neuropathy Kidney insufficiency HLD (hyperlipidemia) WARREN (dyspnea on exertion) CAD (coronary artery disease) PTSD (post-traumatic stress disorder) History of type 1 diabetes mellitus Gastroparesis diabeticorum History of gastroesophageal reflux (GERD) History of stroke Cholecystectomy planned Hypotension Angina pectoris Surgical History History of heart surgery Hx of appendectomy Social History Smoking Status: Never smoker alcohol intake: never substance use type: denies use current occupational status: unemployed Travel in the last 8 weeks?: None Have you lived/traveled outside US in past 30 days?: No Contact w/someone who lives/traveled outside US past 30 days?: No Exposure to someone with infectious disease in past 14 days?: No Do you have a fever (greater than 100.4 F or 38 C)?: No Have you tested positive for COVID-19?: No Exposed to someone with COVID-19 in past 14 days?: No Do you have a sore throat?: No Do you have a cough?: No Do you have any weakness?: No Do you have any diarrhea?: No Are you experiencing any unusual bleeding?: No Do you have any muscle aches/pain?: No Do you have any abdominal pain?: No Are you experiencing loss of taste or smell?: No Other 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 Have you received the Flu Vaccine for this season: No Have you received the Pneumonia Vaccine: No ROS Obtained: Yes Systems reviewed as appropriate & no additional complaints except as documented Constitutional Constitutional: Reports as per HPI Physical Exam General General appearance: alert, anxious and in distress Head Head exam: normocephalic Eye Eye exam: Present PERRL ENT ENT exam: Present mucous membranes moist Neck Neck exam: Present trachea midline Chest Chest inspection: Present symmetric chest wall rise Respiratory Respiratory exam: Present respiratory distress and accessory muscle use Cardiovascular Cardiovascular exam: Present normal rhythm, tachycardia, normal heart sounds, +S1 and +S2 Abdominal Exam Abdominal exam: Present soft and normal bowel sounds Abdominal tenderness: Present diffuse Extremities Exam Extremities exam: Present tenderness and edema Back Exam Back exam: Present full ROM Neurological Exam Neurological exam: Present alert and oriented X3 Psychiatric Psychiatric exam: Present anxious Skin Skin exam: Present warm and dry HEART Score HEART Score HEART Score assessment performed?: Yes History (anamnesis): Slightly suspicious ECG: Non-specific disturbance Age: 45-65 years Risk factors: 3 or more risk factors Troponin: </= normal limit HEART Score: 4 Critical Care Critical Care Time Critical Care Time: No Medical Decision Making Nick Inquiry Pt receiving controlled substance: No Nick was queried for this patient: No Vital Signs Vital Signs: 03/22/25 14:31 03/22/25 15:00 03/22/25 15:30 Temperature 98.4 F Temperature Source Oral Pulse Rate 97 H Pulse Rate [Right] 105 H Respiratory Rate 20 23 20 Blood Pressure 167/101 H 171/104 H Blood Pressure [Right Arm] 189/117 H Blood Pressure Mean 123 Blood Pressure Mean [Right Arm] 141 Blood Pressure Source Blood Pressure Source [Right Arm] Automatic Cuff Blood Pressure Position [Right Arm] Sitting 02 Sat by Pulse Oximetry 100 94 L Oxygen Delivery Method Room Air Oxygen Flow Rate (LPM) 03/22/25 16:02 03/22/25 17:00 03/22/25 17:15 Temperature Temperature Source Pulse Rate 96 H 93 H 94 H Pulse Rate [Right] Respiratory Rate 24 24 28 H Blood Pressure 177/105 H 180/107 H 180/107 H Blood Pressure [Right Arm] Blood Pressure Mean Blood Pressure Mean [Right Arm] Blood Pressure Source Blood Pressure Source [Right Arm] Blood Pressure Position [Right Arm] 02 Sat by Pulse Oximetry 93 L 92 L 94 L Oxygen Delivery Method Nasal Cannula Nasal Cannula Nasal Cannula Oxygen Flow Rate (LPM) 2 2 2 03/22/25 20:05 Temperature 98 F Temperature Source Oral Pulse Rate 94 H Pulse Rate [Right] Respiratory Rate 95 H Blood Pressure 178/107 H Blood Pressure [Right Arm] Blood Pressure Mean Blood Pressure Mean [Right Arm] Blood Pressure Source Automatic Cuff Blood Pressure Source [Right Arm] Blood Pressure Position [Right Arm] 02 Sat by Pulse Oximetry Oxygen Delivery Method Nasal Cannula Oxygen Flow Rate (LPM) 2 Lab Data Labs: Lab Results 03/22/25 14:35: WBC 6.1, RBC 3.78 L, Hgb 10.8 L, Hct 32.3 L, MCV 85.4, MCH 28.6, MCHC 33.4, RDW 15.9, Plt Count 231, MPV 10.7 H, Neut % (Auto) 77.4, Lymph % (Auto) 17.5, Allen % (Auto) 3.5, Eos % (Auto) 1.0, Baso % (Auto) 0.3, Neut # (Auto) 4.7, Lymph # (Auto) 1.1, Allen # (Auto) 0.2, Eos # (Auto) 0.1, Baso # (Auto) 0.0, PT 12.3, INR 1.12 H, APTT 25.6, D-Dimer 1.16 H, Sodium 138, Potassium 4.1, Chloride 106, Carbon Dioxide 24, Anion Gap 12.1, BUN 15, C reatinine 1.60 H, Estimated Creat Clear 51, Estimated GFR 33 L, Est GFR ( Amer) 40 L, Glucose 342 H, Calcium 7.6 L, Magnesium 1.0 L, Total Bilirubin 0.5, AST 27, ALT 19, Alkaline Phosphatase 60, Troponin I 0.05 H, NT-Pro-B Natriuret Pep 83754 H, Total Protein 7.0, Albumin 4.1, Globulin 2.9, Albumin/Globulin Ratio 1.4, Lipase 102 03/22/25 16:06: SARS-CoV-2 (PCR) Not detected, Influenza A Untype (PCR) Not detected, Influenza Type B (PCR) Not detected 03/22/25 17:28: VBG pH 7.36, VBG pCO2 34.6 L, VBG pO2 50.0 H, VBG HCO3 19.3 L, V BG Total CO2 20.3 L, VBG O2 Saturation 81.6 H, VBG Base Excess -6.1 L, VBG Lactic Acid 1.6 03/22/25 17:48: Troponin I 0.04 H 03/22/25 18:53: Urine Color Yellow, Urine Appearance Clear, Urine pH 6.0, Ur Specific Bement 1.020, Urine Protein 2+ A, Urine Glucose (UA) 2+, Urine Ketones Negative, Urine Blood Trace-i, Urine Nitrate Negative, Urine Bilirubin Negative, Urine Urobilinogen 0.2, Ur Leukocyte Esterase Negative, Urine RBC None, Urine WBC None, Ur Squamous Epith Cells None, Urine Bacteria None 03/22/25 14:35 03/22/25 14:35 Response Orders (Tests/Meds): ED MEDICATIONS Generic Name Dose Route Start Last Admin Trade Name Freq PRN Reason Stop Dose Admin Acetaminophen 650 mg 03/22/25 18:28 Acetaminophen 325mg Tab PO 04/21/25 18:27 Q4HP PRN Fever or Mild Pain (1-3) Hydrocodone Bitart/Acetaminophen 1 tab 03/22/25 18:28 Hydrocodone/Apap 5/325 Mg Tablet PO 04/21/25 18:27 Q4HP PRN Mild to Moderate Pain (1-6) Bumetanide 2 mg 03/23/25 09:00 Bumetanide 1mg/4ml Vial IM 04/22/25 08:59 BIDL JHON Furosemide 80 mg 03/22/25 18:28 03/22/25 18:41 Furosemide 40mg/4ml Vial IV 03/22/25 18:29 Not Given ONCE ONE Heparin Sodium (Porcine) 5,000 unit 03/22/25 21:00 Heparin Sodium 5,000 Unit/Ml Vial SUBCUT 04/21/25 20:59 TID [facility] Insulin Glargine 20 unit 03/22/25 21:00 Insulin Glargine 100 Units/Ml 3ml Flexpen SUBCUT 04/21/25 20:59 HS [facility] Insulin Human Lispro 0 unit 03/22/25 21:00 Humalog 100 Units/Ml 10ml Vial (Ssi) SUBCUT 04/21/25 20:59 ACHS [facility] Protocol Nicotine 21 mg 03/22/25 18:28 Nicotine 21mg/24hr Patch TD 04/21/25 18:27 DAILYP PRN Nicotine Cravings Ondansetron HCl 4 mg 03/22/25 18:28 Ondansetron 4mg/2ml Vial IV 04/21/25 18:27 Q8HP PRN Nausea Pantoprazole Sodium 40 mg 03/22/25 21:00 Pantoprazole 40mg Tablet PO 04/21/25 20:59 HS JHON Discontinued Medications Generic Name Dose Route Start Last Admin Trade Name Freq PRN Reason Stop Dose Admin Dexamethasone Sodium Phosphate 8 mg 03/22/25 14:36 03/22/25 14:57 Dexamethasone 4mg/Ml 1ml Vial IV 03/22/25 14:37 8 mg ONCE ONE Administration Furosemide 40 mg 03/22/25 14:36 03/22/25 14:59 Furosemide 40mg/4ml Vial IV 03/22/25 14:37 40 mg ONCE ONE Administration Furosemide 80 mg 03/22/25 18:29 03/22/25 18:42 Furosemide 40mg/4ml Vial IV 03/22/25 18:30 80 mg ONCE ONE Administration Haloperidol Lactate 2 mg 03/22/25 17:40 03/22/25 17:51 Haloperidol Lactate 5 Mg/Ml Vial IV 03/22/25 17:41 Not Given ONCE ONE Magnesium Sulfate 2 gm in 50 mls @ 50 mls/hr 03/22/25 14:36 03/22/25 18:37 Magnesium Sulfate 2gm/50ml Premix IV 03/22/25 15:35 Infused ONCE ONE Infusion Magnesium Sulfate 2 gm in 50 mls @ 50 mls/hr 03/22/25 15:05 03/22/25 18:38 Magnesium Sulfate 2gm/50ml Premix IV 03/22/25 16:04 Infused ONCE ONE Infusion Morphine Sulfate 4 mg 03/22/25 17:40 03/22/25 17:52 Morphine 4mg/Ml Syringe IV 03/22/25 17:41 Not Given ONCE ONE Ondansetron HCl 4 mg 03/22/25 17:40 03/22/25 17:52 Ondansetron 4mg/2ml Vial IV 03/22/25 17:41 Not Given ONCE ONE ORDERS Category Date Time Status CT chest wo con Stat Cat Scan 03/22/25 17:40 Completed Cardiology Consult [Consult to Cardiology] [CONS] Cons 03/22/25 18:28 Active Routine BNP [NT Pro Brain Natriuretic Pep.] Stat Lab 03/22/25 14:35 Completed CBC [Complete Blood Count Auto Diff] Stat Lab 03/22/25 14:35 Completed Complete Blood Count Auto Diff AMLAB Lab 03/23/25 06:00 Ordered Comprehensive Metabolic Panel AMLAB Lab 03/23/25 06:00 Ordered Comprehensive Metabolic Panel Stat Lab 03/22/25 14:35 Completed D-Dimer Stat Lab 03/22/25 14:35 Completed Lipase Stat Lab 03/22/25 14:35 Completed Magnesium AMLAB Lab 03/23/25 06:00 Ordered Magnesium Stat Lab 03/22/25 14:35 Completed PT INR [Prothrombin Time INR] Stat Lab 03/22/25 14:35 Completed PTT [Activated Partial Thrombo Time] Stat Lab 03/22/25 14:35 Completed Rapid PCR Covid and Flu A/B Stat Lab 03/22/25 16:06 Completed Trop I [Troponin I] Stat Lab 03/22/25 14:35 Completed Troponin I Q3H Lab 03/22/25 17:48 Completed Troponin I Q3H Lab 03/22/25 20:45 Ordered Urinalysis and Microscopic Stat Lab 03/22/25 18:53 Completed VBG [Venous Blood Gas] Stat RT 03/22/25 17:28 Completed CA venous doppler LE BI Stat Y 03/22/25 15:50 Completed MDM Narrative Medical Decision Narrative: patient is a 54-year-old female presenting to the emergency department for evaluation of shortness of breath, swelling in bilateral lower extremities, abdominal pain renal failure hypoxia and shortness of breath.. Patient is hemodynamically stable and blood pressure is elevated, tachycardic slightly, swelling apparent and tachypnea.. Differential diagnosis includes PE, pulmonary hypertension, heart failure, among other. Workup will be conducted with hematologic labs, specific imaging, provocative tests. Initial inventions include analgesics, Lasix, mag, dexamethasone. Initial workup reviewed by me hematologic labs are remarkable for creatinine was 1.6, GFR is 33, glucose is 342, calcium is 7.6 her white count was 6.1. Patient's D-dimer was 1.16 but patient refuses a contrasted scans we will get a noncontrasted scan. Patient creatinine was 1.60, her GFR was 33 calcium was 7.6 mag was 1 which has been replaced here in the ED troponin was 0.05, the BNP is 28,900 and patient is receiving Lasix here in the ED as well.
--- NOTE | 2025-03-22 14:38 | ECG_ITS ---
APPROVED REPORT Exam: Resting ECG HR:100 bpm ECG Measurements Heart Rate 100 AXES PA 167 P 15 QRSd 105 QRS 22 QT 365 T 189 QTc 422 Conclusion SINUS TACHYCARDIA POSSIBLE LEFT ATRIAL ENLARGEMENT [-0.1mV P-WAVE IN V1/V2] NONSPECIFIC T-WAVE ABNORMALITY ABNORMAL ECG UNCONFIRMED REPORT Electronically signed by : Navin Urbano, 03/23/2025 15:00:49
[2025-03-22 14:50] LABS: Albumin Level 4.1 g/dl (3.5-5.0); Chloride 106 mmol/L (98-107); Hematocrit 32.3 % (37.0-47.0); Hemoglobin 10.8 g/dL (12.2-16.2); Immature Granulocytes % 0.3 %; Mean Corpuscular HGB Conc 33.4 g/dL (31.8-35.4); Mean Corpuscular Hemoglobin 28.6 pg (27.0-31.2); Mean Corpuscular Volume 85.4 fl (81-99); Nucleated Red Blood Cells % 0 %; Platelet Count 231 K/mm3 (142-424); Potassium 4.1 mmoL/L (3.5-5.1); Red Blood Count 3.78 M/mm3 (4.20-5.40); Red Cell Distribution Width-SD 49.4 fL; Sodium 138 mmol/L (136-145); White Blood Count 6.1 K/mm3 (4.8-10.8)
[2025-03-22 14:53] LABS: Alanine Aminotransferase 19 U/L (12-78); Albumin/Globulin Ratio 1.4 (1.1-1.8); Alkaline Phosphatase 60 U/L (38-126); Anion Gap 12.1 mEq/L (5-15); Aspartate Amino Transferase 27 U/L (14-36); Bilirubin,Total 0.5 mg/dl (0.2-1.3); Blood Urea Nitrogen 15 mg/dl (7-17); Calcium 7.6 mg/dl (8.4-10.2); Carbon Dioxide 24 mmol/L (22.0-30.0); Creatinine Clearance Estimated 51 mL/min (50-200); Creatinine,Serum 1.60 mg/dl (0.52-1.04); Estimated Glomerular Filt Rate 33 ml/min (>60); GFR (African American) 40 ML/MIN (>60); Globulin 2.9 g/dL (1.3-3.2); Glucose 342 mg/dl (74-100); Lipase 102 U/L (23-300); Total Protein,Serum 7.0 g/dl (6.3-8.2)
[2025-03-22] MEDS: DEXAMETHASONE 4MG/ML 1ML VIAL 8 MG IV (14:57)
[2025-03-22 14:58] LABS: Activated Partial Thrombo Time 25.6 seconds (22.8-30.6); INR 1.12 (0.9-1.1); Prothrombin Time 12.3 seconds (10.1-12.5)
[2025-03-22] MEDS: FUROSEMIDE 40MG/4ML VIAL 40 MG IV (14:59)
[2025-03-22] MEDS: MAGNESIUM SULFATE IN WATER 2 GM/50 ML PIGGYBACK IV ×2 (15:00→16:11)
[2025-03-22 15:03] LABS: Magnesium 1.0 mg/dl (1.6-2.3)
[2025-03-22 15:05] LABS: D-Dimer 1.16 ug/mL (0.0-0.5)
[2025-03-22 15:12] LABS: NT Pro Brain Natriuretic Pep. 28900 pg/mL (0-125)
[2025-03-22 15:15] LABS: Troponin I 0.05 ng/ml (0.00-0.034)
--- NOTE | 2025-03-22 15:50 | CA_ITS ---
FINAL REPORT TECHNIQUE: Bilateral lower extremity venous duplex was performed with augmentation and compression. CLINICAL HISTORY: shortness of air, edema Lower extremities x 2 days right > left. Denies trauma. Hx CABG, DM, hx CVA/TIA COMPARISON: None FINDINGS: Proper flow is seen throughout the deep venous systems bilaterally. There is no evidence of deep venous thrombosis. IMPRESSION: No evidence of deep venous thrombosis. Reviewed, Interpreted and Dictated by Santos Hendrickson MD Transcribed by Ashanti Hernandez Authenticated and [facility]
[2025-03-22 16:15] LABS: Coronavirus 19, PCR Not Detected (NotDetected); Influenza A, PCR Not Detected (NotDetected); Influenza B, PCR Not Detected (NotDetected)
--- NOTE | 2025-03-22 17:29 | PC.NURSE ---
RT notified of VBG
[2025-03-22 17:36] LABS: Lactate Venous 1.6 mmol/L (0.4-2.0); VBG HCO3 19.3 mmol/L (23-30); VBG PCO2 34.6 mmol/L (35-51); VBG PH 7.36 mmol/L (7.31-7.41); VBG PO2 50.0 mmol/L (28-40)
--- NOTE | 2025-03-22 17:40 | CT_ITS ---
PROCEDURE INFORMATION: Exam: CT Chest Without Contrast; Diagnostic Exam date and time: 03/22/2025 6:04 PM Age: 54 years old Clinical indication: Shortness of breath; Additional info: Short of breath TECHNIQUE: Imaging protocol: Diagnostic computed tomography of the chest without contrast. Radiation optimization: All CT scans at this facility use at least one of these dose optimization techniques: automated exposure control; mA and/or kV adjustment per patient size (includes targeted exams where dose is matched to clinical indication); or iterative reconstruction. COMPARISON: CT ANGIO CHEST 03/03/2025 11:25 AM FINDINGS: Lungs: Bibasilar atelectasis is noted. Some patchy airspace opacities are also present bilaterally. Thickening of the interlobular septa is noted. Pleural spaces: Moderate to large right greater than left bilateral pleural effusions. Heart: [id number] cardiomegaly. Coronary arteries: Extensive coronary calcium. Lymph nodes: Unremarkable. No enlarged lymph nodes. Vasculature: Unremarkable. No aortic aneurysm. Bones/joints: Unremarkable. No acute fracture. Soft tissues: Unremarkable. IMPRESSION: Cardiomegaly, extensive coronary calcium, moderate to large bilateral effusions, thickening of the interlobular septa, patchy ground-glass opacity likely pulmonary edema, findings all consistent with congestive failure.
[2025-03-22 18:36] LABS: Troponin I 0.04 ng/ml (0.00-0.034)
[2025-03-22] MEDS: FUROSEMIDE 40MG/4ML VIAL 80 MG IV (18:42)
[2025-03-22 19:03] LABS: Microscopic, Urine URINE MICROSCOPIC (MICROSCOPIC)
[2025-03-22 19:15] LABS: Bilirubin,Urine Negative (Negative); Color,Urine YELLOW (Yellow); Glucose,Urine (UA) 2+ (Negative); Ketones,Urine Negative (Negative); Leukocyte Esterase,Urine Negative (Negative); PH,Urine 6.0 (5.0-8.5); Protein,Urine 2+ (Negative); Specific Gravity, Urine 1.020 (1.005-1.030); Urobilinogen,Urine 0.2 EU/dl (0.2)
--- NOTE | 2025-03-22 20:16 | PC.NURSE ---
Patient arrived to floor via stretcher from ED at 20:13.
--- NOTE | 2025-03-22 21:03 | P.HP_ITS ---
<Statement entered by Reji Temple MD - 03/29/25 11:10> Agree with plan of care as outlined by the MANAGER SCIENCE. History of Present Illness *Admission Date: 03/22/25 *Reason for visit:: Shortness of breath *History of present illness: 54-year-old female patient presents to ER with complaints of shortness of breath and pedal edema. She also complains of some chest pain described as both heaviness and fullness. Initially was a 10/10 now she states it is just unco mfortable, she does not rated on a pain scale. She has had several hospitalizations recently. Discharged on March 11 from [facility] where she was treated for JOSELUIS. Potassium was 5.5. She was given fluids and albumin and was evaluated by nephrology. They did not have to do dialysis. Renal function did improve and she was discharged home on 5 mg of torsemide daily. Discharge creatinine was 3.3. Today she presents with shortness of breath and pedal edema. She has got diminished breath sounds with crackles. And she has a BNP level of 28,900. She has known congestive heart failure with an EF of 40 to 45% with severe hypokinesis of the septal inferior septal and anterior septal LV cloud. Troponins are 0.05 and 0.04. In the ER she received 4 g of magnesium, a total 1120 mg of Lasix as well as morphine. She denies fever chills or bodyaches. Denies cough. Denies nausea vomiting or diarrhea. Does complain of some pain in her lower back which she states is my kidneys but states this is at her baseline. She does have a follow-up appointment with nephrology. [facility] Disclaimer: The information contained in this section may have been updated after the patient was seen, as this information can be updated by other users. 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 Anxiety CKD (chronic kidney disease) stage 4, GFR 15-29 ml/min Breast cancer screening Colon cancer screening Diabetic peripheral neuropathy Kidney insufficiency HLD (hyperlipidemia) WARREN (dyspnea on exertion) CAD (coronary artery disease) PTSD (post-traumatic stress disorder) History of type 1 diabetes mellitus Gastroparesis diabeticorum History of gastroesophageal reflux (GERD) History of stroke Cholecystectomy planned Hypotension Angina pectoris Surgical History History of heart surgery Hx of appendectomy Social History Smoking Status: Never smoker alcohol intake: never substance use type: denies use current occupational status: unemployed Travel in the last 8 weeks?: None Have you lived/traveled outside US in past 30 days?: No Contact w/someone who lives/traveled outside US past 30 days?: No Exposure to someone with infectious disease in past 14 days?: No Do you have a fever (greater than 100.4 F or 38 C)?: No Have you tested positive for COVID-19?: No Exposed to someone with COVID-19 in past 14 days?: No Do you have a sore throat?: No Do you have a cough?: No Do you have any weakness?: No Do you have any diarrhea?: No Are you experiencing any unusual bleeding?: No Do you have any muscle aches/pain?: No Do you have any abdominal pain?: No Are you experiencing loss of taste or smell?: No Other 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 Have you received the Flu Vaccine for this season: No Have you received the Pneumonia Vaccine: No Review of Systems Constitutional Constitutional: Denies body ache(s), Denies chills, Denies fever(s) and Denies headache(s) Eyes Eyes: Reports blurry vision ENT Ears, Nose, Mouth, and Throat: Denies dizziness and Denies headache(s) *Cardiovascular Cardiovascular: Reports chest pain, Reports dyspnea and Reports leg edema *Respiratory Respiratory: Denies chest congestion, Denies cough and Reports dyspnea *Gastrointestinal Gastrointestinal: Denies abdominal pain, Denies diarrhea, Denies nausea and Denies vomiting *Genitourinary Genitourinary: Denies difficulty voiding and Denies dysuria *Musculoskeletal Musculoskeletal: Reports back pain *Neurologic Neurologic: Denies dizziness and Denies headache(s) Meds Home Medications and Allergies Home Medications ?Medication ?Instructions ?Recorded ?Confirmed ?Type 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,card scraper,cont #1 ea 06/01/24 03/22/25 Rx (Dexcom G7 [employer]) clopidogrel 75 mg tablet (Plavix) 75 mg PO DAILY #90 t abs 06/03/24 03/22/25 Rx lancets 28 gauge #100 ea 06/03/24 03/22/25 Hi story insulin pump cartridge,auto #1 ea 09/10/24 03/22/25 Hi story dose,BT,G6/G7 with controller subcutaneous (Omnipod 5 G6-G7 Intro Kit(Gen 5) subcutaneous cartridge and controller) rosuvastatin 10 mg tablet (Crestor) 10 mg PO DAILY #30 tabs 12/08/24 03/22/25 Rx inclisiran 284 mg/1.5 mL 284 mg (1.5 mL) SQ [id number] 2 12/14/24 03/22/25 Rx subcutaneous syringe (Leqvio) doses #1.5 mL 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 sensor (Dexcom G7 #9 ea 12/25/24 5 Rx Sensor device) insulin lispro 100 unit/mL 1 unit SQ DIRECTED 03/0203/22/25 History subcutaneous solution (Admelog U-100 Insulin lispro) ondansetron 4 mg disintegrating 4 mg PO Q8HP PRN nause a and 03/02/25 03/22/25 History tablet vomiting sertraline 50 mg tablet 50 mg PO DAILY 03/02/2503/06 History gabapentin 600 mg tablet 300 mg (1/2 x 600 mg) PO TID #90 03/04/25 03/22/25 Rx tabs isosorbide mononitrate 30 mg 30 mg PO DAILY 30 days #3 0 tabs 03/04/25 03/22/25 Rx tablet,extended release 24 hr metoprolol succinate 25 mg 25 mg PO DAILY 30 days #30 tabs 03/04/25 03/22/25 Rx tablet,extended release 24 hr pantoprazole 40 mg tablet,delayed 40 mg PO HS 30 days #30 tabs 03/04/25 03/22/25 Rx release insulin pump cart,auto,BT,G6/7 #5 ea 03/11/25 03/22/25 Rx (Omnipod 5 G6-G7 Pods (Gen 5) subcutaneous cartridge) fluticasone propionate 50 1 spray intranasal DAILY #16 grams 03/18/25 03/22/25 Rx mcg/actuation nasal spray,suspension (Flonase Allergy Relief) omeprazole 20 mg capsule,delayed 20 mg PO DAILY 03/22/25 History release torsemide 5 mg tablet 5 mg PO DAILY 03/18/2503/22 History New Prescriptions to Start Prescriptions: Allergies Allergy/AdvReac Type Severity Reaction Status Date / Time atorvastatin Allergy Severe lowers Verified 03/18/25 13:29 blood pressure aspirin (ASPIRIN) Allergy Intermediate I-HIVES Verified 03/18/25 13:29 latex (LATEX) Allergy Unknown RASH, HIVES Verified 03/18/25 13:29 midodrine AdvReac Severe Unknown Verified 03/18/25 13:29 allergy reaction Exam Data for Last 24 hours Vital signs and Labs for Last 24 Hours: Temp Pulse Resp BP Pulse Ox O2 Del Method O2 Flow Rate 97.6 F 92 H 16 186/110 H 92 L Room Air 2 03/22/25 20:46 03/22/25 20:46 03/22/25 20:46 03/22/25 20:48 03/22/25 20:46 03/22/25 20:46 03/22/25 20:05 Laboratory Results - last 24 hr 03/22/25 14:35: WBC 6.1, RBC 3.78 L, Hgb 10.8 L, Hct 32.3 L, MCV 85.4, MCH 28.6, MCHC 33.4, RDW 15.9, Plt Count 231, MPV 10.7 H, Neut % (Auto) 77.4, Lymph % (Auto) 17.5, Canadian % (Auto) 3.5, Eos % (Auto) 1.0, Baso % (Auto) 0.3, Neut # (Auto) 4.7, Lymph # (Auto) 1.1, Canadian # (Auto) 0.2, Eos # (Auto) 0.1, Baso # (Auto) 0.0, PT 12.3, INR 1.12 H, APTT 25.6, D-Dimer 1.16 H, Sodium 138, Potassium 4.1, Chloride 106, Carbon Dioxide 24, Anion Gap 12.1, BUN 15, Creatinine 1.60 H, Estimated Creat Clear 51, Estimated GFR 33 L, Est GFR ( Amer) 40 L, Glucose 342 H, Calcium 7.6 L, Magnesium 1.0 L, Total Bi lirubin 0.5, AST 27, ALT 19, Alkaline Phosphatase 60, Troponin I 0.05 H, NT-Pro-B Natriuret Pep 18984 H, Total Protein 7.0, Albumin 4.1, Globulin 2.9, Albumin/Globulin Ratio 1.4, Lipase 102 03/22/25 16:06: SARS-CoV-2 (PCR) Not detected, Influenza A Untype (PCR) Not detected, Influenza Type B (PCR) Not detected 03/22/25 17:28: VBG pH 7.36, VBG pCO2 34.6 L, VBG pO2 50.0 H, VBG HCO3 19.3 L, VBG Total CO2 20.3 L, VBG O2 Saturation 81.6 H, VBG Base Excess -6.1 L, VBG Lactic Acid 1.6 03/22/25 17:48: Troponin I 0.04 H 03/22/25 18:53: Urine Color Yellow, Urine Appearance Clear, Urine pH 6.0, Ur Specific Hatch 1.020, Urine Protein 2+ A, Urine Glucose (UA) 2+, Urine Ketones Negative, Urine Blood Trace-i, Urine Nitrate Negative, Urine Bilirubin Negative, Urine Urobilinogen 0.2, Ur Leukocyte Esterase Negative, Urine RBC None, Urine WBC None, Ur Squamous Epith Cells None, Urine Bacteria None I & O for Last 24 hours: Intake & Output 03/19/25 03/20/25 03/21/25 03/22/25 23:59 23:59 23:59 23:59 Intake Total 1200 / 1200 Balance 1200 / 1200 Weight 75.886 kg Constitutional Constitutional: mild distress *Routine HEENT Exam Head: Present normocephalic and atraumatic Eye: Present PERRL ENT: Present mucous membranes moist *Routine Neck Exam Neck: Present supple *Routine Respiratory Exam Respiratory: Present decreased breath sounds and crackles (Diminished in bilateral bases with crackles in the remaining lung liriano bilaterally.) *Routine Cardiovascular Exam Cardiovascular: Present RRR, Normal S1 and Normal S2 *Routine Abdominal Exam Abdominal: Present soft and normoactive bowel sounds; Absent tenderness or distended *Routine Rectal Exam Rectal:: deferred *Routine Genitalia Exam Genitalia:: deferred *Routine Extremities Exam Extremities: Present edema and pulses intact *Routine Skin Exam Skin: Present dry and warm *Routine Neurological Exam Neurological: Present alert, oriented X3 and moving all extremities Assessment and Plan *Assessment and plan (1) Acute on chronic combined systolic (congestive) and diastolic (congestive) heart failure: Status: Acute Category: Medical Code(s): I50.43 - Acute on chronic combined systolic (congestive) and diastolic (congestive) heart failure (2) Non-ST elevation IA (NSTEMI): Status: Acute Category: Medical Code(s): I21.4 - Non-ST elevation (NSTEMI) myocardial infarction (3) Uncontrolled diabetes mellitus: Status: Acute Qualifiers: Diabetes mellitus type: type 1 Glycemic state: with hyperglycemia Qualified Code(s): E10.65 - Type 1 diabetes mellitus with hyperglycemia Category: Medical (4) CKD (chronic kidney disease): Status: Acute Qualifiers: Chronic kidney disease stage: stage 4 (GFR 15-29) Qualified Code(s): N18.4 - Chronic kidney disease, stage 4 (severe) Category: Medical Code(s): N18.9 - Chronic kidney disease, unspecified (5) HTN (hypertension): Status: Acute Qualifiers: Hypertension type: essential hypertension Qualified Code(s): I10 - Essential (primary) hypertension Category: Medical Code(s): I10 - Essential (primary) hypertension (6) History of stroke: Status: Acute Category: Medical Code(s): Z86.73 - Personal history of transient ischemic attack (TIA), and cerebral infarction without residual deficits (7) HLD (hyperlipidemia): Status: Acute Qualifiers: Hyperlipidemia type: mixed hyperlipidemia Qualified Code(s): E78.2 - Mixed hyperlipidemia Category: Medical Code(s): E78.5 - Hyperlipidemia, unspecified Plan This patient with a complex medical history of combined heart failure as well as significant CKD presents to the ER with complaints of shortness of breath and pitting edema. Recently presented here with a creatinine of 5.5 and was transferred to an outside hospital for nephrology evaluation. Ultimately he creatinine improved with fluids and albumin and upon discharge creatinine was 3.3. She was discharged on 5 mg of torsemide daily. She presents today with increasing shortness of breath and pedal edema and is found to have a BNP of 28,900. Troponin is 0.05. Dr. Freire was contacted by the ER physician and agreed to admit the patient for further workup and treatment. Acute on chronic combined systolic and diastolic heart failure?most recent EF is 40 to 45%. There is severe hypokinesis of the septal inferoseptal and anteroseptal left ventricular cloud there is also grade 1 diastolic dysfunction. She was given 120 mg of IV Lasix in the ER. She will continue on Bumex on the floor. Will monitor I&O, lytes and renal function. Initial magnesium level was 1.0 and that was replaced in the ER. We will check a repeat at midnight. Home meds include metoprolol and isosorbide. Those will be resumed. We will use Bumex instead of torsemide. NSTEMI H/O CABG - trend troponins and have cardiology see in the morning. Initial was 0.05 2nd and 3rd hour 0.04. Monitor on telemetry. Diabetes mellitus?patient states she stopped her insulin pump yesterday because it was bottoming her out. We will provide basal insulin as well as sliding scale insulin. CKD monitor kidney function as well as volume status and electrolytes. She does see nephrology as an outpatient and will need to follow-up upon discharge. Hypertension blood pressure improved after diuresis. Will resume metoprolol and isosorbide in the morning. History of stroke?We will continue her Plavix.
[2025-03-22 21:13] LABS: Troponin I 0.04 ng/ml (0.00-0.034)
[2025-03-22] MEDS: INSULIN GLARGINE 100 UNITS/ML 3ML FLEXPEN 20 UNIT SUBCUT (21:14)
[2025-03-22] MEDS: PANTOPRAZOLE 40MG TABLET 40 MG PO (21:14)
[2025-03-22] MEDS: HEPARIN SODIUM 5,000 UNIT/ML VIAL 5000 UNIT SUBCUT (21:14)
[2025-03-22] MEDS: humaLOG 100 UNITS/ML 10ML VIAL (SSI) SUBCUT (21:15)
[2025-03-23] VITALS (8 sets, daily range): BP systolic 122–157; BP diastolic 68–91; PULSE 70–88; RESP 16–18; TEMP 36.7–37.1; O2SAT 91–94; BMI 28.5
[2025-03-23] MEDS: GABAPENTIN 300MG CAPSULE 300 MG PO ×4 (00:05→20:14)
[2025-03-23 01:37] LABS: Magnesium 1.7 mg/dl (1.6-2.3)
[2025-03-23] MEDS: BENZONATATE 100MG CAPSULE 100 MG PO ×2 (03:31→13:32)
[2025-03-23 03:40] LABS: Adenovirus,PCR Not Detected (NotDetected); Chlamydophila Pneumoniae, PCR Not Detected (NotDetected); Coronavirus 19, PCR Not Detected (NotDetected); Coronovirus HKU1,PCR Not Detected (NotDetected); Influenza A, PCR Not Detected (NotDetected); Influenza AH1, 2009 Not Detected (NotDetected); Influenza AH1, PCR Not Detected (NotDetected); Influenza AH3,PCR Not Detected (NotDetected); Influenza B, PCR Not Detected (NotDetected); Mycoplasma Pneumoniae, PCR Not Detected (NotDetected); Parainfluenza 1, PCR Not Detected (NotDetected); Parainfluenza 2, PCR Not Detected (NotDetected); Parainfluenza 3, PCR Not Detected (NotDetected); Parainfluenza 4, PCR Not Detected (NotDetected)
[2025-03-23 05:19] LABS: POC Glucose,Bedside 380 gm/dL (70-110)
[2025-03-23 06:06] LABS: Hematocrit 32.5 % (37.0-47.0); Hemoglobin 11.0 g/dL (12.2-16.2); Immature Granulocytes % 0.3 %; Mean Corpuscular HGB Conc 33.8 g/dL (31.8-35.4); Mean Corpuscular Hemoglobin 28.5 pg (27.0-31.2); Mean Corpuscular Volume 84.2 fl (81-99); Nucleated Red Blood Cells % 0 %; Platelet Count 228 K/mm3 (142-424); Red Blood Count 3.86 M/mm3 (4.20-5.40); Red Cell Distribution Width-SD 46.6 fL; White Blood Count 7.2 K/mm3 (4.8-10.8)
[2025-03-23 06:22] LABS: Alanine Aminotransferase 18 U/L (12-78); Albumin Level 4.3 g/dl (3.5-5.0); Albumin/Globulin Ratio 1.6 (1.1-1.8); Alkaline Phosphatase 59 U/L (38-126); Anion Gap 12.8 mEq/L (5-15); Aspartate Amino Transferase 25 U/L (14-36); Bilirubin,Total 0.7 mg/dl (0.2-1.3); Blood Urea Nitrogen 19 mg/dl (7-17); Calcium 8.3 mg/dl (8.4-10.2); Carbon Dioxide 23 mmol/L (22.0-30.0); Chloride 101 mmol/L (98-107); Creatinine Clearance Estimated 54 mL/min (50-200); Creatinine,Serum 1.40 mg/dl (0.52-1.04); Estimated Glomerular Filt Rate 39 ml/min (>60); GFR (African American) 47 ML/MIN (>60); Globulin 2.7 g/dL (1.3-3.2); Glucose 204 mg/dl (74-100); Magnesium 1.7 mg/dl (1.6-2.3); Potassium 3.8 mmoL/L (3.5-5.1); Sodium 133 mmol/L (136-145); Total Protein,Serum 7.0 g/dl (6.3-8.2)
[2025-03-23] MEDS: humaLOG 100 UNITS/ML 10ML VIAL (SSI) SUBCUT ×4 (06:34→20:18)
--- NOTE | 2025-03-23 07:49 | HMH.PHAINT1 ---
Pharmacy Intervention Comments: Home medication list verified using list from outpatient pharmacy and office records
[2025-03-23] MEDS: BUMETANIDE 1MG/4ML VIAL 2 MG IV ×2 (08:23→16:01)
[2025-03-23] MEDS: HEPARIN SODIUM 5,000 UNIT/ML VIAL 5000 UNIT SUBCUT ×2 (08:23→12:54)
[2025-03-23] MEDS: ISOSORBIDE MONO 30MG TAB.ER.24H 30 MG PO (08:24)
[2025-03-23] MEDS: SPIRONOLACTONE 25MG TABLET 25 MG PO (08:24)
[2025-03-23] MEDS: METOPROLOL SUCCINATE XL 25MG TABLET 25 MG PO (08:24)
[2025-03-23] MEDS: CLOPIDOGREL 75MG TAB 75 MG PO (08:24)
--- NOTE | 2025-03-23 08:54 | CA_ITS ---
APPROVED REPORT EXAM: Limited 2D Echocardiogram Parquetry Layer: Stacey Haywood RVT Ht: 5 ft 4 in Wt: 167lbs BSA: 1.81 BP: 186/110 mmHg Indications: CHF,HFrEF M-Mode Dimensions RVDd 2.60 cm (0.9-2.6) LA Diam 3.66 cm (1.9-4.0) LVDd 5.05 cm (3.5-5.7) LVDs 3.95 cm (3.5-5.7) IVSd 0.71 cm (0.6-1.1) PWd 0.57 cm (0.6-1.1) EF (Teich) 43.90% FS 21.80% EDV (Teich) 121.00 mL ESV (Teich) 67.90 mL Other Information Study Quality: Fair Conclusion This is a limited TTE to evaluate for LV systolic function. Limited windows are obtained. The left ventricle is normal in size. There is increased LV wall thickness. There is moderate global hypokinesis present. There is severe hypokinesis of the septal and inferoseptal LV cloud. LVEF is 35-40%. Pleural effusion is incidentally noted. Electronically signed by : Tomasa Ortiz MD 03/23/2025 12:01:20
--- NOTE | 2025-03-23 09:20 | HMH.PTEV ---
Physical Therapy Evaluation Rehab PT IP Evaluation Start: 03/22/25 20:24 Freq: ONCE Status: Active Protocol: Document 03/23/25 09:07 RADHA (Rec: 03/23/25 09:19 RADHA [id number]) Subjective/History History History Per H&P: 54-year-old female patient presents to ER with complaints of shortness of breath and pedal edema. She also complains of some chest pain described as both heaviness and fullness. Initially was a 10/10 now she states it is just uncomfortable, she does not rated on a pain scale. She has had several hospitalizations recently. Discharged on March 11 from [facility] where she was treated for JOSELUIS. Potassium was 5.5. She was given fluids and albumin and was evaluated by nephrology. They did not have to do dialysis. Renal function did improve and she was discharged home on 5 mg of torsemide daily. Discharge creatinine was 3.3. Today she presents with shortness of breath and pedal edema. She has got diminished breath sounds with crackles. And she has a BNP level of 28,900. She has known congestive heart failure with an EF of 40 to 45% with severe hypokinesis of the septal inferior septal and anterior septal LV cloud. Troponins are 0.05 and 0.04. In the ER she received 4 g of magnesium, a total 1120 mg of Lasix as well as morphine. She denies fever chills or bodyaches. Denies cough. Denies nausea vomiting or diarrhea. Does complain of some pain in her lower back which she states is my kidneys but states this is at her baseline. She does have a follow -up appointment with nephrology. Subjective Subjective Pt reports she lives with her daughter and grandson in a home. Pt normally is IND with mobility with intermittent RW use. Pt reports her daughter is able to assist with mobility if needed. Pt reports some falls in past few months. [facility] How much help from another person do you currently need... Turning from your None back to your side while in a flat bed without using bedrails? Moving from lying on None back to sitting on the side of a flat bed without using bedrails? Moving to and from a None bed to a chair ( including a wheelchair)? Standing up from a A little chair using your arms? (e.g., wheelchair, bedside chair) Walking in hospital A little room? Climbing 3-5 steps A little with a railing? Mobility Score 21 Mobility Level [facility] Mobility 6 Walk 10 steps or more Mobility Calculator Rehab PT IP Eval Objective Appearance Patient Behavior Appropriate,Cooperative Patient Orientation Person,Place,Situation Difficulty following none instructions Speech Pattern Clear Ambulation Patient Able to Yes Ambulate Ambulation Observation Ambulation Distance 30 (feet) Ambulation Assistive Rolling Walker Device Ambulation Ability Contact Guard/Hand Hold,Minimal x 1 (25% assist) Balance Ability to Arise Able, uses arms to help Sitting Balance Steady, safe Standing Balance Steady, wide stance Dynamic Sitting Good Balance Ability Dynamic Standing Fair Balance Ability Transfers Bed Transfer Ability Supervision/Stand by Sit to Stand Bed Contact Guard/Hand Hold Transfer Ability Rehab PT IP prob,goals,plan Problems Date of Evaluation: 03/23/25 PT IP Problems Balance,Self care,Safety Rehab Potential Rehab Potential Good Equipment Needs Assistive Devices Rolling / Wheeled Walker Plan PT Intervention Plan Transfers,Gait,Balance,Self care,Safety,Therapeutic Exercise Other Intervention 1-2 times Plan PT Plan Frequency Daily Duration LOS Discharge Goals Bed Transfer Ability Independent Sit to Stand Chair Independent Transfer Ability Ambulation Assistive Rolling Walker Device Ambulation Distance 50 (feet) Discharge Plan PT Discharge Plan Pt presents below her baseline in mobility and would benefit from skilled PT while at [facility] to prevent further functional decline. PT recommending PT services and supervision from family at home. PT recommending pt use RW at all times. Eval Complexity Eval Charge Codes 93243 - Moderate Complexity PHYSICIAN CERTIFICATION: I certify the specified therapy services for Janay Head are required, authorized, and reviewed every 30 days.
--- NOTE | 2025-03-23 09:38 | SW/DCPLANNER ---
Spoke with patient regarding home health or outpatient therapy. Patient stated that she is not interested in either. Patient stated that if she can get the swelling down in her legs and feet she will do so much better. Patient stated that she is very active. Sergio Mehta
--- NOTE | 2025-03-23 10:46 | HMH.OTEV ---
OT Evaluation Rehab OT IP Evaluation Start: 03/22/25 20:24 Freq: ONCE Status: Active Protocol: Document 03/23/25 10:42 PETRA (Rec: 03/23/25 10:46 PETRA [id number]) Rehab OT IP Assessment Subjective History 54-year-old female patient presents to ER with complaints of shortness of breath and pedal edema. She also complains of some chest pain described as both heaviness and fullness. Initially was a 10/10 now she states it is just uncomfortable, she does not rated on a pain scale. She has had several hospitalizations recently. Discharged on March 11 from [facility] where she was treated for JOSELUIS. Potassium was 5.5. She was given fluids and albumin and was evaluated by nephrology. They did not have to do dialysis. Renal function did improve and she was discharged home on 5 mg of torsemide daily. Discharge creatinine was 3.3. Today she presents with shortness of breath and pedal edema. She has got diminished breath sounds with crackles. And she has a BNP level of 28,900. She has known congestive heart failure with an EF of 40 to 45% with severe hypokinesis of the septal inferior septal and anterior septal LV cloud. Troponins are 0.05 and 0.04. In the ER she received 4 g of magnesium, a total 1120 mg of Lasix as well as morphine. She denies fever chills or bodyaches. Denies cough. Denies nausea vomiting or diarrhea. Does complain of some pain in her lower back which she states is my kidneys but states this is at her baseline. She does have a follow-up appointment with nephrology. Patient lives with dtr in 1 story home. Independent with ADLs and fx'l mobility tasks. Uses a RW occasional . Subjective I can try to get up. Instructed Patient on proper hand and foot placement to complete bed mobility, STS and fx'l mobility within the enviornment with Min A. Patient required extended time due to unsteadiness of balance. Mod A for LB drsg. Objective Patient Orientation Person,Place,Name Right Upper WFL Extremity Gross ROM Left Upper Extremity WFL Gross ROM Bed Mobility bed mobility - supine/sit Assist Level Supervision/Stand by Transfer Training Sit/Stand/Step Transfer Assist Level Minimal x 1 (25% assist) Chair Transfer Minimal x 1 (25% assist) Ability Rehab OT IP prob,goals,plan Problems Date of Evaluation: 03/23/25 OT IP Problems Bed Mobility,Transfers,Balance,Self care,Safety Rehab Potential Rehab Potential Good Equipment Needs Assistive Devices Rolling / Wheeled Walker Plan OT intervention Plan Bed Mobility,Transfers,Balance,Self care,Safety, Therapeutic Exercise OT Plan Frequency Daily Duration LOS Discharge Goals Bed Mobility Ability Standby Assistance Sit to Stand Chair Contact Guard/Hand Hold Transfer Ability Chair Transfer Contact Guard/Hand Hold Ability Chair Transfer Sit to/from Ambulatory Technique Chair Transfer Rolling Walker Assistive Devices Discharge Plan OT Discharge Plan Recommend patient to return home with HH services after medical d/c. Recommend patient to use RW at home during OOB tasks due to unsteadiness balance. Patient will continue skilled OT services with focus on addressing safety awareness with ADLs and fx'l mobility tasks. Eval Complexity Eval Charge Codes 88709 - Low Complexity PHYSICIAN CERTIFICATION: I certify the specified therapy services for Jnaay Head are required, authorized, and reviewed every 30 days.
[2025-03-23] MEDS: BELLADONNA ALKALOIDS 60 ML ML PO (10:50)
--- NOTE | 2025-03-23 13:07 | EXP.CARD.CON ---
History of Present Illness History of Present Illness Consult date: 03/23/25 Requesting physician: Reji Temple Chief complaint: Shortness of breath History of present illness: Hospitalist note: 54-year-old female patient presents to ER with complaints of shortness of breath and pedal edema. She also complains of some chest pain described as both heaviness and fullness. Initially was a 10/10 now she states it is just uncomfortable, she does not rated on a pain scale. She has had several hospitalizations recently. Discharged on March 11 from [facility] where she was treated for JOSELUIS. Potassium was 5.5. She was given fluids and albumin and was evaluated by nephrology. They did not have to do dialysis. Renal function did improve and she was discharged home on 5 mg of torsemide daily. Discharge creatinine was 3.3. Today she presents with shortness of breath and pedal edema. She has got diminished breath sounds with crackles. And she has a BNP level of 28,900. She has known congestive heart failure with an EF of 40 to 45% with severe hypokinesis of the septal inferior septal and anterior septal LV cloud. Troponins are 0.05 and 0.04. In the ER she received 4 g of magnesium, a total 1120 mg of Lasix as well as morphine. She denies fever chills or bodyaches. Denies cough. Denies nausea vomiting or diarrhea. Does complain of some pain in her lower back which she states is my kidneys but states this is at her baseline. She does have a follow-up appointment with nephrology. Cardiology Note: Janay Head is a 54-year-old white female with a past medical history of chronic kidney disease, coronary artery disease status post CABG and medical management heart cath 11/2024, HFrEF with a previous ejection fraction of 40 to 45% and diabetes mellitus who presented to emergency department with shortness of breath and pedal edema. Patient underwent a CT chest which showed moderate to large bilateral effusions. Patient has a long history of chronic kidney disease with worsening renal function anytime contrast is used. Patient was recently in [facility] for JOSELUIS secondary to nausea/vomiting and was evaluated by nephrology. Patient was treated with gentle rehydration and discharged home. Creatinine on this admission was 1.6 and has trended down to 1.4. Patient's baseline creatinine is 1.6-2. Patient was admitted for volume overload and is undergoing diuresis. This morning she denies chest pain but continues to endorse shortness of breath and lower extremity edema. Repeat limited echo is pending. [facility] Disclaimer: The information contained in this section may have been updated after the patient was seen, as this information can be updated by other users. 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 Anxiety CKD (chronic kidney disease) stage 4, GFR 15-29 ml/min Breast cancer screening Colon cancer screening Diabetic peripheral neuropathy Kidney insufficiency HLD (hyperlipidemia) WARREN (dyspnea on exertion) CAD (coronary artery disease) PTSD (post-traumatic stress disorder) History of type 1 diabetes mellitus Gastroparesis diabeticorum History of gastroesophageal reflux (GERD) History of stroke Cholecystectomy planned Hypotension Angina pectoris Surgical History History of heart surgery Hx of appendectomy Social History Smoking Status: Never smoker alcohol intake: never substance use type: denies use current occupational status: unemployed Travel in the last 8 weeks?: None Have you lived/traveled outside US in past 30 days?: No Contact w/someone who lives/traveled outside US past 30 days?: No Exposure to someone with infectious disease in past 14 days?: No Do you have a fever (greater than 100.4 F or 38 C)?: No Have you tested positive for COVID-19?: No Exposed to someone with COVID-19 in past 14 days?: No Do you have a sore throat?: No Do you have a cough?: No Do you have any weakness?: No Do you have any diarrhea?: No Are you experiencing any unusual bleeding?: No Do you have any muscle aches/pain?: No Do you have any abdominal pain?: No Are you experiencing loss of taste or smell?: No Review of Systems Constitutional Constitutional: Denies headache(s) ENT Ears, Nose, Mouth, and Throat: Denies dizziness and Denies headache(s) *Cardiovascular Cardiovascular: Reports chest pain and Reports dyspnea *Respiratory Respiratory: Reports dyspnea *Neurologic Neurologic: Denies dizziness and Denies headache(s) Exam Data for Last 24 hours Vital signs and Labs for Last 24 Hours: Temp Pulse Resp BP Pulse Ox O2 Del Method O2 Flow Rate 98.5 F 78 16 147/80 H 93 L Nasal Cannula 2 03/23/25 11:52 03/23/25 11:52 03/23/25 11:52 03/23/25 11:52 03/23/25 11:52 03/23/25 11:52 03/23/25 11:52 Laboratory Results - last 24 hr 03/22/25 14:35: WBC 6.1, RBC 3.78 L, Hgb 10.8 L, Hct 32.3 L, MCV 85.4, MCH 28.6, MCHC 33.4, RDW 15.9, Plt Count 231, MPV 10.7 H, Neut % (Auto) 77.4, Lymph % (Auto) 17.5, [place] % (Auto) 3.5, Eos % (Auto) 1.0, Baso % (Auto) 0.3, Neut # (Auto) 4.7, Lymph # (Auto) 1.1, [place] # (Auto) 0.2, Eos # (Auto) 0.1, Baso # (Auto) 0.0, PT 12.3, INR 1.12 H, APTT 25.6, D-Dimer 1.16 H, Sodium 138, Potassium 4.1, Chloride 106, Carbon Dioxide 24, Anion Gap 12.1, BUN 15, Creatinine 1.60 H, Estimated Creat Clear 51, Estimated GFR 33 L, Est GFR ( Amer) 40 L, Glucose 342 H, Calcium 7.6 L, Magnesium 1.0 L, Total Bilirubin 0.5, AST 27, ALT 19, Alkaline Phosphatase 60, Troponin I 0.05 H, NT-Pro-B Natriuret Pep 28141 H, Total Protein 7.0, Albumin 4.1, Globulin 2.9, Albumin/Globulin Ratio 1.4, Lipase 102 03/22/25 16:06: SARS-CoV-2 (PCR) Not detected, Influenza A Untype (PCR) Not detected, Influenza Type B (PCR) Not detected 03/22/25 17:28: VBG pH 7.36, VBG pCO2 34.6 L, VBG pO2 50.0 H, VBG HCO3 19.3 L, VBG Total CO2 20.3 L, VBG O2 Saturation 81.6 H, VBG Base Excess -6.1 L, VBG Lactic Acid 1.6 03/22/25 17:48: Troponin I 0.04 H 03/22/25 18:53: Urine Color Yellow, Urine Appearance Clear, Urine pH 6.0, Ur Specific [place] 1.020, Urine Protein 2+ A, Urine Glucose (UA) 2+, Urine Ketones Negative, Urine Blood Trace-i, Urine Nitrate Negative, Urine Bilirubin Negative, Urine Urobilinogen 0.2, Ur Leukocyte Esterase Negative, Urine RBC None, Urine WBC None, Ur Squamous Epith Cells None, Urine Bacteria None 03/22/25 20:24: POC Glucose 380 H* 03/22/25 20:41: Troponin I 0.04 H 03/23/25 01:12: Magnesium 1.7 D 03/23/25 03:30: Chlamy pneumoniae PCR Not detected, Adenovirus (PCR) Not detected, B. pertussis DNA (PCR) Not detected, Coronavirus OC43 (PCR) Not detected, Coronavirus HKU1 (PCR) Not detected, Coronavirus 229E (PCR) Not detected, SARS-CoV-2 (PCR) Not detected, Coronavirus NL63 (PCR) Not detected, Human Metapneumovir PCR Not detected, Influenza A (H1) PCR Not detected, Influ A (H1N1/09) PCR Not detected, Influenza A (H3) PCR Not detected, Influenza Type A (PCR) Not detected, Influenza Type B (PCR) Not detected, M. pneumoniae (PCR) Not detected, Parainfluenza 1 (PCR) Not detected, Parainfluenza 2 (PCR) Not detected, Parainfluenza 3 (PCR) Not detected, Parainfluenza 4 (PCR) Not detected, RSV (PCR) Not detected, Entero/Rhino (PCR) Not detected 03/23/25 05:34: WBC 7.2, RBC 3.86 L, Hgb 11.0 L, Hct 32.5 L, MCV 84.2, MCH 28.5, MCHC 33.8, RDW 15.4, Plt Count 228, MPV 10.2, Neut % (Auto) 84.6 H, Lymph % (Auto) 10.7, [place] % (Auto) 4.0, Eos % (Auto) 0.1, Baso % (Auto) 0.3, Neut # (Auto) 6.1, Lymph # (Auto) 0.8, [place] # (Auto) 0.3, Eos # (Auto) 0.0, Baso # (Auto) 0.0, Sodium 133 L, Potassium 3.8, Chloride 101, Carbon Dioxide 23, Anion Gap 12.8, BUN 19 H D, Creatinine 1.40 H, Estimated Creat Clear 54, Estimated GFR 39 L, Est GFR ( Amer) 47 L, Glucose 204 H D, Calcium 8.3 L, Magnesium 1.7, Total Bilirubin 0.7, AST 25, ALT 18, Alkaline Phosphatase 59, Total Protein 7.0, Albumin 4.3, Globulin 2.7, Albumin/Globulin Ratio 1.6 I & O for Last 24 hours: Intake & Output 03/20/25 03/21/25 03/22/25 03/23/25 23:59 23:59 23:59 23:59 Intake Total 100 / 100 270 / 270 Output Total 2300 / 2300 1850 / 1850 Balance -2200 / -2200 -1580 / -1580 Weight 167 lb 4.8 oz 167 lb Constitutional Constitutional: no acute distress *Routine Respiratory Exam Respiratory: Present rhonchi and symmetric chest movement *Routine Cardiovascular Exam Cardiovascular: Present RRR, Normal S1 and Normal S2 *Routine Abdominal Exam Abdominal: Present soft and normoactive bowel sounds; Absent tenderness *Routine Extremities Exam Extremities: Present edema, full ROM and normal capillary refill *Routine Skin Exam Skin: Present intact, dry and warm Detailed Neck Exam: Thyroids Thyroid: Absent bruit Meds Home Medications and Allergies Home Medications ?Medication ?Instructions ?Recorded ?Confirmed ?Type 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,area operations director,cont #1 ea 06/01/24 03/22/25 Rx (Dexcom G7 Casing Puller) clopidogrel 75 mg tablet (Plavix) 75 mg PO DAILY #90 tabs 06/03/24 03/22/25 Rx lancets 28 gauge #100 ea 06/03/24 03/22/25 History insulin pump cartridge,auto #1 ea 09/10/24 03/22/25 History dose,BT,G6/G7 with controller subcutaneous (Omnipod 5 G6-G7 Intro Kit(Gen 5) subcutaneous cartridge and controller) rosuvastatin 10 mg tablet (Crestor) 10 mg PO DAILY #30 tabs 12/08/24 03/22/25 Rx inclisiran 284 mg/1.5 mL 284 mg (1.5 mL) SQ [id number] 2 12/14/24 03/22/25 Rx subcutaneous syringe (Leqvio) doses #1.5 mL 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 sensor (Dexcom G7 #9 ea 12/25/24 03/22/25 Rx Sensor device) insulin lispro 100 unit/mL 1 unit SQ DIRECTED 03/02/25 03/22/25 History subcutaneous solution (Admelog U-100 Insulin lispro) ondansetron 4 mg disintegrating 4 mg PO Q8HP PRN nausea and 03/02/25 03/22/25 History tablet vomiting sertraline 50 mg tablet 50 mg PO DAILY 03/02/25 03/22/25 History isosorbide mononitrate 30 mg 30 mg PO DAILY 30 days #30 tabs 03/04/25 03/22/25 Rx tablet,extended release 24 hr metoprolol succinate 25 mg 25 mg PO DAILY 30 days #30 tabs 03/04/25 03/22/25 Rx tablet,extended release 24 hr insulin pump cart,auto,BT,G6/7 #5 ea 03/11/25 03/22/25 Rx (Omnipod 5 G6-G7 Pods (Gen 5) subcutaneous cartridge) fluticasone propionate 50 1 spray intranasal DAILY #16 grams 03/18/25 03/22/25 Rx mcg/actuation nasal spray,suspension (Flonase Allergy Relief) omeprazole 20 mg capsule,delayed 20 mg PO DAILY 03/18/25 03/22/25 History release torsemide 5 mg tablet 5 mg PO DAILY 03/18/25 03/22/25 History gabapentin 600 mg tablet 600 mg PO TID 03/23/25 03/23/25 History hydralazine 25 mg tablet 25 mg PO TID 03/23/25 03/23/25 History New Prescriptions to Start Prescriptions: Allergies Allergy/AdvReac Type Severity Reaction Status Date / Time atorvastatin Allergy Severe lowers Verified 03/18/25 13:29 blood pressure aspirin (ASPIRIN) Allergy Intermediate I-HIVES Verified 03/18/25 13:29 latex (LATEX) Allergy Unknown RASH, HIVES Verified 03/18/25 13:29 midodrine AdvReac Severe Unknown Verified 03/18/25 13:29 allergy reaction Assessment and Plan *Assessment and plan (1) Non-ST elevation [place] (NSTEMI): Status: Acute Category: Medical Code(s): I21.4 - Non-ST elevation (NSTEMI) myocardial infarction (2) HFrEF (heart failure with reduced ejection fraction): Status: Acute Category: Medical Code(s): I50.20 - Unspecified systolic (congestive) heart failure Plan Acute on chronic HFrEF Patient complaining of increased shortness of breath, lower extremity edema and moderate to large bilateral effusions were noted on chest CT Ejection fraction has further decreased from 40 to 45% down to 35 to 40%. Patient is down 3.5 L Will continue to diurese patient with Bumex 2 mg IV twice daily and Aldactone 25 mg p.o. daily Restart hydralazine and Imdur Continue beta-katina Start Jardiance Coronary artery disease History of CABG Acute myocardial injury in the setting of volume overload Troponin 0.05 trending down 0.04 in the setting of volume overload EKG negative for STEMI Ejection fraction has decreased further to 35 to 40% I discussed proceeding with left heart catheterization for reduced ejection fraction with both Dr. Randolph and Dr. Fan who both agree given patient's extensive history of worsening kidney function with contrast dye we will hold off on pursuing left heart catheterization at this time. Will maximize guideline directed medical therapy and evaluate further on outpatient basis. Continue Plavix. Patient reports cannot tolerate statins. Consider addition of Repatha or Leqvio on outpatient basis Chronic kidney disease Recently creatinine was elevated above 5 Creatinine elevates every time contrast is used Today kidney function is 1.4 Will continue to monitor CV summary 03/23/2025: No plan for intervention at this time. Ejection fraction has further decreased. Will maximize GDMT. Continue to diurese patient. Cardiac meds: Plavix 75 mg p.o. daily Jardiance 10 mg p.o. daily Bumex 2 mg IV twice daily Hydralazine 25 mg p.o. 3 times daily Isosorbide dinitrate 20 mg p.o. 3 times daily Metoprolol succinate 25 mg p.o. daily Aldactone 25 mg p.o. daily
--- NOTE | 2025-03-23 15:34 | EXP.PN ---
Subjective *Date: 03/23/25 *Time: 15:34 Interval history: Patient feels slightly better today, but still feels congested. Continue diuresis. Exam Data for Last 24 hours Vital signs and Labs for Last 24 Hours: Temp Pulse Resp BP Pulse Ox O2 Del Method O2 Flow Rate 98.5 F 80 16 147/80 H 93 L Nasal Cannula 2 03/23/25 11:52 03/23/25 12:00 03/23/25 11:52 03/23/25 11:52 03/23/25 11:52 03/23/25 13:00 03/23/25 13:00 Laboratory Results - last 24 hr 03/22/25 16:06: SARS-CoV-2 (PCR) Not detected, Influenza A Untype (PCR) Not detected, Influenza Type B (PCR) Not detected 03/22/25 17:28: VBG pH 7.36, VBG pCO2 34.6 L, VBG pO2 50.0 H, VBG HCO3 19.3 L, VBG Total CO2 20.3 L, VBG O2 Saturation 81.6 H, VBG Base Excess -6.1 L, VBG Lactic Acid 1.6 03/22/25 17:48: Troponin I 0.04 H 03/22/25 18:53: Urine Color Yellow, Urine Appearance Clear, Urine pH 6.0, Ur Specific [place] 1.020, Urine Protein 2+ A, Urine Glucose (UA) 2+, Urine Ketones Negative, Urine Blood Trace-i, Urine Nitrate Negative, Urine Bilirubin Negative, Urine Urobilinogen 0.2, Ur Leukocyte Esterase Negative, Urine RBC None, Urine WBC None, Ur Squamous Epith Cells None, Urine Bacteria None 03/22/25 20:24: POC Glucose 380 H* 03/22/25 20:41: Troponin I 0.04 H 03/23/25 01:12: Magnesium 1.7 D 03/23/25 03:30: Chlamy pneumoniae PCR Not detected, Adenovirus (PCR) Not detected, B. pertussis DNA (PCR) Not detected, Coronavirus OC43 (PCR) Not detected, Coronavirus HKU1 (PCR) Not detected, Coronavirus 229E (PCR) Not detected, SARS-CoV-2 (PCR) Not detected, Coronavirus NL63 (PCR) Not detected, Human Metapneumovir PCR Not detected, Influenza A (H1) PCR Not detected, Influ A (H1N1/09) PCR Not detected, Influenza A (H3) PCR Not detected, Influenza Type A (PCR) Not detected, Influenza Type B (PCR) Not detected, M. pneumoniae (PCR) Not detected, Parainfluenza 1 (PCR) Not detected, Parainfluenza 2 (PCR) Not detected, Parainfluenza 3 (PCR) Not detected, Parainfluenza 4 (PCR) Not detected, RSV (PCR) Not detected, Entero/Rhino (PCR) Not detected 03/23/25 05:34: WBC 7.2, RBC 3.86 L, Hgb 11.0 L, Hct 32.5 L, MCV 84.2, MCH 28.5, MCHC 33.8, RDW 15.4, Plt Count 228, MPV 10.2, Neut % (Auto) 84.6 H, Lymph % (Auto) 10.7, [place] % (Auto) 4.0, Eos % (Auto) 0.1, Baso % (Auto) 0.3, Neut # (Auto) 6.1, Lymph # (Auto) 0.8, [place] # (Auto) 0.3, Eos # (Auto) 0.0, Baso # (Auto) 0.0, Sodium 133 L, Potassium 3.8, Chloride 101, Carbon Dioxide 23, Anion Gap 12.8, BUN 19 H D, Creatinine 1.40 H, Estimated Creat Clear 54, Estimated GFR 39 L, Est GFR ( Amer) 47 L, Glucose 204 H D, Calcium 8.3 L, Magnesium 1.7, Total Bilirubin 0.7, AST 25, ALT 18, Alkaline Phosphatase 59, Total Protein 7.0, Albumin 4.3, Globulin 2.7, Albumin/Globulin Ratio 1.6 Temp Pulse Resp BP Pulse Ox O2 Del Method O2 Flow Rate 98.5 F 78 16 147/80 H 93 L Nasal Cannula 2 03/23/25 11:52 03/23/25 11:52 03/23/25 11:52 03/23/25 11:52 03/23/25 11:52 03/23/25 11:52 03/23/25 11:52 Laboratory Results - last 24 hr 03/22/25 14:35: WBC 6.1, RBC 3.78 L, Hgb 10.8 L, Hct 32.3 L, MCV 85.4, MCH 28.6, MCHC 33.4, RDW 15.9, Plt Count 231, MPV 10.7 H, Neut % (Auto) 77.4, Lymph % (Auto) 17.5, [place] % (Auto) 3.5, Eos % (Auto) 1.0, Baso % (Auto) 0.3, Neut # (Auto) 4.7, Lymph # (Auto) 1.1, [place] # (Auto) 0.2, Eos # (Auto) 0.1, Baso # (Auto) 0.0, PT 12.3, INR 1.12 H, APTT 25.6, D-Dimer 1.16 H, Sodium 138, Potassium 4.1, Chloride 106, Carbon Dioxide 24, Anion Gap 12.1, BUN 15, Creatinine 1.60 H, Estimated Creat Clear 51, Estimated GFR 33 L, Est GFR ( Amer) 40 L, Glucose 342 H, Calcium 7.6 L, Magnesium 1.0 L, Total Bilirubin 0.5, AST 27, ALT 19, Alkaline Phosphatase 60, Troponin I 0.05 H, NT-Pro-B Natriuret Pep 16238 H, Total Protein 7.0, Albumin 4.1, Globulin 2.9, Albumin/Globulin Ratio 1.4, Lipase 102 03/22/25 16:06: SARS-CoV-2 (PCR) Not detected, Influenza A Untype (PCR) Not detected, Influenza Type B (PCR) Not detected 03/22/25 17:28: VBG pH 7.36, VBG pCO2 34.6 L, VBG pO2 50.0 H, VBG HCO3 19.3 L, VBG Total CO2 20.3 L, VBG O2 Saturation 81.6 H, VBG Base Excess -6.1 L, VBG Lactic Acid 1.6 03/22/25 17:48: Troponin I 0.04 H 03/22/25 18:53: Urine Color Yellow, Urine Appearance Clear, Urine pH 6.0, Ur Specific [place] 1.020, Urine Protein 2+ A, Urine Glucose (UA) 2+, Urine Ketones Negative, Urine Blood Trace-i, Urine Nitrate Negative, Urine Bilirubin Negative, Urine Urobilinogen 0.2, Ur Leukocyte Esterase Negative, Urine RBC None, Urine WBC None, Ur Squamous Epith Cells None, Urine Bacteria None 03/22/25 20:24: POC Glucose 380 H* 03/22/25 20:41: Troponin I 0.04 H 03/23/25 01:12: Magnesium 1.7 D 03/23/25 03:30: Chlamy pneumoniae PCR Not detected, Adenovirus (PCR) Not detected, B. pertussis DNA (PCR) Not detected, Coronavirus OC43 (PCR) Not detected, Coronavirus HKU1 (PCR) Not detected, Coronavirus 229E (PCR) Not detected, SARS-CoV-2 (PCR) Not detected, Coronavirus NL63 (PCR) Not detected, Human Metapneumovir PCR Not detected, Influenza A (H1) PCR Not detected, Influ A (H1N1/09) PCR Not detected, Influenza A (H3) PCR Not detected, Influenza Type A (PCR) Not detected, Influenza Type B (PCR) Not detected, M. pneumoniae (PCR) Not detected, Parainfluenza 1 (PCR) Not detected, Parainfluenza 2 (PCR) Not detected, Parainfluenza 3 (PCR) Not detected, Parainfluenza 4 (PCR) Not detected, RSV (PCR) Not detected, Entero/Rhino (PCR) Not detected 03/23/25 05:34: WBC 7.2, RBC 3.86 L, Hgb 11.0 L, Hct 32.5 L, MCV 84.2, MCH 28.5, MCHC 33.8, RDW 15.4, Plt Count 228, MPV 10.2, Neut % (Auto) 84.6 H, Lymph % (Auto) 10.7, [place] % (Auto) 4.0, Eos % (Auto) 0.1, Baso % (Auto) 0.3, Neut # (Auto) 6.1, Lymph # (Auto) 0.8, [place] # (Auto) 0.3, Eos # (Auto) 0.0, Baso # (Auto) 0.0, Sodium 133 L, Potassium 3.8, Chloride 101, Carbon Dioxide 23, Anion Gap 12.8, BUN 19 H D, Creatinine 1.40 H, Estimated Creat Clear 54, Estimated GFR 39 L, Est GFR ( Amer) 47 L, Glucose 204 H D, Calcium 8.3 L, Magnesium 1.7, Total Bilirubin 0.7, AST 25, ALT 18, Alkaline Phosphatase 59, Total Protein 7.0, Albumin 4.3, Globulin 2.7, Albumin/Globulin Ratio 1.6 I & O for Last 24 hours: Intake & Output 03/20/25 03/21/25 03/22/25 03/23/25 23:59 23:59 23:59 23:59 Intake Total 100 / 100 570 / 570 Output Total 2300 / 2300 1850 / 1850 Balance -2200 / -2200 -1280 / -1280 Weight 75.886 kg 75.75 kg Intake & Output 03/20/25 03/21/25 03/22/25 03/23/25 23:59 23:59 23:59 23:59 Intake Total 100 / 100 270 / 270 Output Total 2300 / 2300 1850 / 1850 Balance -2200 / -2200 -1580 / -1580 Weight 167 lb 4.8 oz 167 lb Constitutional Constitutional: no acute distress *Routine Respiratory Exam Respiratory: Present rhonchi and symmetric chest movement *Routine Cardiovascular Exam Cardiovascular: Present RRR, Normal S1 and Normal S2 *Routine Abdominal Exam Abdominal: Present soft and normoactive bowel sounds; Absent tenderness *Routine Extremities Exam Extremities: Present edema, full ROM and normal capillary refill *Routine Skin Exam Skin: Present intact, dry and warm Detailed Neck Exam: Thyroids Thyroid: Absent bruit Assessment and Plan *Assessment and plan (1) Acute on chronic combined systolic (congestive) and diastolic (congestive) heart failure: Status: Acute Category: Medical Code(s): I50.43 - Acute on chronic combined systolic (congestive) and diastolic (congestive) heart failure (2) Non-ST elevation [place] (NSTEMI): Status: Acute Category: Medical Code(s): I21.4 - Non-ST elevation (NSTEMI) myocardial infarction (3) Uncontrolled diabetes mellitus: Status: Acute Qualifiers: Diabetes mellitus type: type 1 Glycemic state: with hyperglycemia Qualified Code(s): E10.65 - Type 1 diabetes mellitus with hyperglycemia Category: Medical (4) CKD (chronic kidney disease): Status: Acute Qualifiers: Chronic kidney disease stage: stage 4 (GFR 15-29) Qualified Code(s): N18.4 - Chronic kidney disease, stage 4 (severe) Category: Medical Code(s): N18.9 - Chronic kidney disease, unspecified (5) HTN (hypertension): Status: Acute Qualifiers: Hypertension type: essential hypertension Qualified Code(s): I10 - Essential (primary) hypertension Category: Medical Code(s): I10 - Essential (primary) hypertension (6) History of stroke: Status: Acute Category: Medical Code(s): Z86.73 - Personal history of transient ischemic attack (TIA), and cerebral infarction without residual deficits (7) HLD (hyperlipidemia): Status: Acute Qualifiers: Hyperlipidemia type: mixed hyperlipidemia Qualified Code(s): E78.2 - Mixed hyperlipidemia Category: Medical Code(s): E78.5 - Hyperlipidemia, unspecified Plan This patient with a complex medical history of combined heart failure as well as significant CKD presents to the ER with complaints of shortness of breath and pitting edema. Recently presented here with a creatinine of 5.5 and was transferred to an outside hospital for nephrology evaluation. Ultimately he creatinine improved with fluids and albumin and upon discharge creatinine was 3.3. She was discharged on 5 mg of torsemide daily. She presents today with increasing shortness of breath and pedal edema and is found to have a BNP of 28,900. Troponin is 0.05. Dr. Freire was contacted by the ER physician and agreed to admit the patient for further workup and treatment. Acute on chronic combined systolic and diastolic heart failure?most recent EF is 40 to 45%. There WAS severe hypokinesis of the septal inferoseptal and anteroseptal left ventricular cloud there is also grade 1 diastolic dysfunction. She was given 120 mg of IV Lasix in the ER. ? Repeat ECHO on 03/23/2025 revealed worsened LVEF to 30 to 35% with wall motion abnormalities. Discussed with cardiology, given significant history of severe contrast nephropathy will defer LHC for now and reconsider on an outpatient basis. ? Continue IV Bumex 2 mg twice daily, started spironolactone 25 mg. Diuresing well, net -3.4 L. Cardiology started Jardiance. ? Follow-up morning CMP, magnesium. NSTEMI H/O CABG -troponins plateaued, no chest pain. ? Repeat ECHO on 03/23/2025 revealed worsened LVEF to 30 to 35% with wall motion abnormalities. Discussed with cardiology, given significant history of severe contrast nephropathy will defer LHC for now and reconsider on an outpatient basis. ? Continue Plavix 75 mg, metoprolol succinate 25 mg. Diabetes mellitus?patient states she stopped her insulin pump yesterday because it was bottoming her out. We will provide basal insulin as well as sliding scale insulin. ? Hemoglobin A1c 7.5%. CKD monitor kidney function as well as volume status and electrolytes. She does see nephrology as an outpatient and will need to follow-up upon discharge. ? Creatinine improved to 1.4, GFR 39. Stable today. Hypertension blood pressure improved after diuresis. History of stroke?We will continue her Plavix. Full code DVT prophylaxis: Lovenox 40 mg
--- NOTE | 2025-03-23 16:19 | PC.NURSE ---
pt resting in supine at this time. complained of intermittent dry cough. tessalon pearls given per jul. fsbs treated with ssi. no complaints of pain. call light within reach.
[2025-03-23] MEDS: HYDRALAZINE HCL 25MG TABLET 25 MG PO (20:13)
[2025-03-23] MEDS: ISOSORBIDE DINITRATE 20 MG TABLET PO (20:14)
[2025-03-23] MEDS: PANTOPRAZOLE 40MG TABLET 40 MG PO (20:14)
[2025-03-23] MEDS: INSULIN GLARGINE 100 UNITS/ML 3ML FLEXPEN 20 UNIT SUBCUT (20:19)
[2025-03-24] VITALS (9 sets, daily range): BP systolic 120–147; BP diastolic 65–85; PULSE 65–87; RESP 12–16; TEMP 36.6–37; O2SAT 93–97; BMI 28.8
--- NOTE | 2025-03-24 02:00 | PC.NURSE ---
Pt AOx4, pleasant. No significant changes this shift. Tolerating 2L O2. Currently resting in bed with eyes open watching tv. Respirations even and unlabored. Bed low, locked, and call light is in reach.
[2025-03-24] MEDS: humaLOG 100 UNITS/ML 10ML VIAL (SSI) SUBCUT ×4 (05:03→20:09)
[2025-03-24 06:15] LABS: Hematocrit 28.4 % (37.0-47.0); Hemoglobin 9.5 g/dL (12.2-16.2); Immature Granulocytes % 0.2 %; Mean Corpuscular HGB Conc 33.5 g/dL (31.8-35.4); Mean Corpuscular Hemoglobin 28.7 pg (27.0-31.2); Mean Corpuscular Volume 85.8 fl (81-99); Nucleated Red Blood Cells % 0 %; Platelet Count 211 K/mm3 (142-424); Red Blood Count 3.31 M/mm3 (4.20-5.40); Red Cell Distribution Width-SD 48.6 fL; White Blood Count 6.0 K/mm3 (4.8-10.8)
[2025-03-24 06:28] LABS: Alanine Aminotransferase 15 U/L (12-78); Albumin Level 3.5 g/dl (3.5-5.0); Albumin/Globulin Ratio 1.5 (1.1-1.8); Alkaline Phosphatase 58 U/L (38-126); Anion Gap 8.8 mEq/L (5-15); Aspartate Amino Transferase 20 U/L (14-36); Bilirubin,Total 0.3 mg/dl (0.2-1.3); Blood Urea Nitrogen 26 mg/dl (7-17); Calcium 8.4 mg/dl (8.4-10.2); Carbon Dioxide 28 mmol/L (22.0-30.0); Chloride 100 mmol/L (98-107); Creatinine Clearance Estimated 43 mL/min (50-200); Creatinine,Serum 1.80 mg/dl (0.52-1.04); Estimated Glomerular Filt Rate 29 ml/min (>60); GFR (African American) 35 ML/MIN (>60); Globulin 2.4 g/dL (1.3-3.2); Glucose 225 mg/dl (74-100); Magnesium 1.5 mg/dl (1.6-2.3); Potassium 3.8 mmoL/L (3.5-5.1); Sodium 133 mmol/L (136-145); Total Protein,Serum 5.9 g/dl (6.3-8.2)
[2025-03-24] MEDS: METOPROLOL SUCCINATE XL 25MG TABLET 25 MG PO (09:15)
[2025-03-24] MEDS: HYDRALAZINE HCL 25MG TABLET 25 MG PO ×3 (09:16→20:09)
[2025-03-24] MEDS: BUMETANIDE 1MG/4ML VIAL 1 MG IV ×2 (09:16→16:08)
[2025-03-24] MEDS: CLOPIDOGREL 75MG TAB 75 MG PO (09:16)
[2025-03-24] MEDS: SPIRONOLACTONE 25MG TABLET 25 MG PO (09:16)
--- NOTE | 2025-03-24 09:22 | XR_ITS ---
FINAL REPORT TECHNIQUE: Portable chest CLINICAL HISTORY: sob, hypoxia COMPARISON: 03/06/2025 FINDINGS: A portable view of the chest was obtained. There is evidence of a prior midline sternotomy. The heart is mildly enlarged, stable since the prior exam. There are worsening bibasilar opacities when compared to the prior exam of 03/06/2025. There is no pneumothorax. IMPRESSION: Mild cardiomegaly, stable. Worsening bibasilar opacities when compared to the prior exam of 03/06/2025. Reviewed, Interpreted and Dictated by Adrianne Abbasi MD Transcribed by Palak Armendariz Authenticated and [facility]
[2025-03-24] MEDS: ISOSORBIDE DINITRATE 20 MG TABLET PO ×3 (09:24→20:09)
--- NOTE | 2025-03-24 09:43 | EXP.CARD.CON ---
History of Present Illness History of Present Illness Consult date: 03/24/25 Requesting physician: Reji Temple Chief complaint: SOB History of present illness: Continues to c/o SOA and epigastric fullness. Ankle swelling improving. Still requiring supplemental oxygen. Repeat chest xray pending. Labs reviewed, creatinine 1.8 today. [facility] Disclaimer: The information contained in this section may have been updated after the patient was seen, as this information can be updated by other users. 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 Anxiety CKD (chronic kidney disease) stage 4, GFR 15-29 ml/min Breast cancer screening Colon cancer screening Diabetic peripheral neuropathy Kidney insufficiency HLD (hyperlipidemia) WARREN (dyspnea on exertion) CAD (coronary artery disease) PTSD (post-traumatic stress disorder) History of type 1 diabetes mellitus Gastroparesis diabeticorum History of gastroesophageal reflux (GERD) History of stroke Cholecystectomy planned Hypotension Angina pectoris Surgical History History of heart surgery Hx of appendectomy Social History Smoking Status: Never smoker alcohol intake: never substance use type: denies use current occupational status: unemployed Travel in the last 8 weeks?: None Have you lived/traveled outside US in past 30 days?: No Contact w/someone who lives/traveled outside US past 30 days?: No Exposure to someone with infectious disease in past 14 days?: No Do you have a fever (greater than 100.4 F or 38 C)?: No Have you tested positive for COVID-19?: No Exposed to someone with COVID-19 in past 14 days?: No Do you have a sore throat?: No Do you have a cough?: No Do you have any weakness?: No Do you have any diarrhea?: No Are you experiencing any unusual bleeding?: No Do you have any muscle aches/pain?: No Do you have any abdominal pain?: No Are you experiencing loss of taste or smell?: No Review of Systems Constitutional Constitutional: Denies headache(s) ENT Ears, Nose, Mouth, and Throat: Denies dizziness and Denies headache(s) *Cardiovascular Cardiovascular: Reports chest pain and Reports dyspnea *Respiratory Respiratory: Reports dyspnea *Neurologic Neurologic: Denies dizziness and Denies headache(s) Exam Data for Last 24 hours Vital signs and Labs for Last 24 Hours: Temp Pulse Resp BP Pulse Ox O2 Del Method O2 Flow Rate 97.8 F 87 16 131/78 93 L Nasal Cannula 2 03/24/25 08:00 03/24/25 08:00 03/24/25 08:00 03/24/25 08:00 03/24/25 08:00 03/24/25 08:00 03/24/25 08:00 Laboratory Results - last 24 hr 03/24/25 05:43: WBC 6.0, RBC 3.31 L, Hgb 9.5 L, Hct 28.4 L, MCV 85.8, MCH 28.7, MCHC 33.5, RDW 15.7, Plt Count 211, MPV 10.4, Neut % (Auto) 64.9, Lymph % (Auto) 27.2, [place] % (Auto) 4.3, Eos % (Auto) 2.7, Baso % (Auto) 0.7, Neut # (Auto) 3.9, Lymph # (Auto) 1.6, [place] # (Auto) 0.3, Eos # (Auto) 0.2, Baso # (Auto) 0.0, Sodium 133 L, Potassium 3.8, Chloride 100, Carbon Dioxide 28, Anion Gap 8.8, BUN 26 H D, Creatinine 1.80 H D, Estimated Creat Clear 43, Estimated GFR 29 L, Est GFR ( Amer) 35 L D, Glucose 225 H, Calcium 8.4, Magnesium 1.5 L D, Total Bilirubin 0.3, AST 20, ALT 15, Alkaline Phosphatase 58, Total Protein 5.9 L, Albumin 3.5 D, Globulin 2.4, Albumin/Globulin Ratio 1.5 I & O for Last 24 hours: Intake & Output 03/21/25 03/22/25 03/23/25 03/24/25 23:59 23:59 23:59 23:59 Intake Total 100 / 100 1110 / 1110 300 / 300 Output Total 2300 / 2300 2350 / 2850 500 / 500 Balance -2200 / -2200 -1240 / -1740 -200 / -200 Weight 167 lb 4.8 oz 167 lb 169 lb 1.6 oz Constitutional Constitutional: no acute distress *Routine Respiratory Exam Respiratory: Present wheezes and symmetric chest movement *Routine Cardiovascular Exam Cardiovascular: Present RRR, Normal S1 and Normal S2 *Routine Abdominal Exam Abdominal: Present soft and normoactive bowel sounds; Absent tenderness *Routine Extremities Exam Extremities: Present full ROM and normal capillary refill; Absent edema Comments: Improving bilateral ankle swelling. *Routine Skin Exam Skin: Present intact, dry and warm Detailed Neck Exam: Thyroids Thyroid: Absent bruit Meds Home Medications and Allergies Home Medications ?Medication ?Instructions ?Recorded ?Confirmed ?Type 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,logistics clerk,cont #1 ea 06/01/24 03/22/25 Rx (Dexcom G7 Seat Cover Cutter) clopidogrel 75 mg tablet (Plavix) 75 mg PO DAILY #90 tabs 06/03/24 03/22/25 Rx lancets 28 gauge #100 ea 06/03/24 03/22/25 History insulin pump cartridge,auto #1 ea 09/10/24 03/22/25 History dose,BT,G6/G7 with controller subcutaneous (Omnipod 5 G6-G7 Intro Kit(Gen 5) subcutaneous cartridge and controller) rosuvastatin 10 mg tablet (Crestor) 10 mg PO DAILY #30 tabs 12/08/24 03/22/25 Rx inclisiran 284 mg/1.5 mL 284 mg (1.5 mL) SQ [id number] 2 12/14/24 03/22/25 Rx subcutaneous syringe (Leqvio) doses #1.5 mL 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 sensor (Dexcom G7 #9 ea 12/25/24 03/22/25 Rx Sensor device) insulin lispro 100 unit/mL 1 unit SQ DIRECTED 03/02/25 03/22/25 History subcutaneous solution (Admelog U-100 Insulin lispro) ondansetron 4 mg disintegrating 4 mg PO Q8HP PRN nausea and 03/02/25 03/22/25 History tablet vomiting sertraline 50 mg tablet 50 mg PO DAILY 03/02/25 03/22/25 History isosorbide mononitrate 30 mg 30 mg PO DAILY 30 days #30 tabs 03/04/25 03/22/25 Rx tablet,extended release 24 hr metoprolol succinate 25 mg 25 mg PO DAILY 30 days #30 tabs 03/04/25 03/22/25 Rx tablet,extended release 24 hr insulin pump cart,auto,BT,G6/7 #5 ea 03/11/25 03/22/25 Rx (Omnipod 5 G6-G7 Pods (Gen 5) subcutaneous cartridge) fluticasone propionate 50 1 spray intranasal DAILY #16 grams 03/18/25 03/22/25 Rx mcg/actuation nasal spray,suspension (Flonase Allergy Relief) omeprazole 20 mg capsule,delayed 20 mg PO DAILY 03/18/25 03/22/25 History release torsemide 5 mg tablet 5 mg PO DAILY 03/18/25 03/22/25 History gabapentin 600 mg tablet 600 mg PO TID 03/23/25 03/23/25 History hydralazine 25 mg tablet 25 mg PO TID 03/23/25 03/23/25 History New Prescriptions to Start Prescriptions: Allergies Allergy/AdvReac Type Severity Reaction Status Date / Time atorvastatin Allergy Severe lowers Verified 03/18/25 13:29 blood pressure aspirin (ASPIRIN) Allergy Intermediate I-HIVES Verified 03/18/25 13:29 latex (LATEX) Allergy Unknown RASH, HIVES Verified 03/18/25 13:29 midodrine AdvReac Severe Unknown Verified 03/18/25 13:29 allergy reaction Assessment and Plan *Assessment and plan (1) Acute on chronic combined systolic (congestive) and diastolic (congestive) heart failure: Status: Acute Category: Medical Code(s): I50.43 - Acute on chronic combined systolic (congestive) and diastolic (congestive) heart failure (2) CKD (chronic kidney disease): Status: Acute Qualifiers: Chronic kidney disease stage: stage 4 (GFR 15-29) Qualified Code(s): N18.4 - Chronic kidney disease, stage 4 (severe) Category: Medical Code(s): N18.9 - Chronic kidney disease, unspecified Plan Acute on chronic HFrEF Shortness of breath, lower extremity edema and moderate to large bilateral effusions were noted on chest CT on admission Ejection fraction has further decreased from 40 to 45% down to 35 to 40%. Patient is down 3.6 L Bumex decreased due to worsening kidney function Contine Aldactone 25 mg p.o. daily Continue hydralazine and Imdur Continue beta-katina No jardiance or Farxiga per nephrology per patient Coronary artery disease History of CABG Acute myocardial injury in the setting of volume overload Troponin 0.05 trending down 0.04 in the setting of volume overload EKG negative for STEMI Ejection fraction has decreased further to 35 to 40% I discussed proceeding with left heart catheterization for reduced ejection fraction with both Dr. Randolph and Dr. Fan who both agree given patient's extensive history of worsening kidney function with contrast dye we will hold off on pursuing left heart catheterization at this time. Will maximize guideline directed medical therapy and evaluate further on outpatient basis. Continue Plavix. Patient reports cannot tolerate statins. Consider addition of Repatha or Leqvio on outpatient basis Chronic kidney disease Recently creatinine was elevated above 5 Creatinine elevates every time contrast is used Today kidney function is 1.8 Will continue to monitor CV summary 03/24/2025: Creatinine worse today, up to 1.8. Bumex decreased to 1mg IV BID. Repeat chest x-ray pending. Patient receiving neb treatments for ongoing shortness of breath. Cardiac meds: Plavix 75 mg p.o. daily Jardiance 10 mg p.o. daily-hold patient reports nephrology told her not to take Jardiance or Farxiga Bumex 1 mg IV twice daily Hydralazine 25 mg p.o. 3 times daily Isosorbide dinitrate 20 mg p.o. 3 times daily Metoprolol succinate 25 mg p.o. daily Aldactone 25 mg p.o. daily
[2025-03-24] MEDS: IPRATROPIUM/ALBUTEROL 3 ML NEB IH ×2 (10:26→18:39)
[2025-03-24] MEDS: MAGNESIUM SULFATE IN WATER 2 GM/50 ML PIGGYBACK IV ×2 (10:56→12:13)
--- NOTE | 2025-03-24 11:05 | PC.NURSE ---
pt dexcom reading 261. Insulin given based on sliding scale
--- NOTE | 2025-03-24 11:39 | EXP.PN ---
Subjective *Date: 03/24/25 *Time: 14:55 Interval history: Patient was having shortness of breath, increased work of breathing this morning. Improved this afternoon with diuresis and starting DuoNebs. Continues to have large bilateral pleural effusions, continue diuresis. Exam Data for Last 24 hours Vital signs and Labs for Last 24 Hours: Temp Pulse Resp BP Pulse Ox O2 Del Method O2 Flow Rate 97.8 F 65 16 131/78 93 L Nasal Cannula 2 03/24/25 08:00 03/24/25 10:27 03/24/25 08:00 03/24/25 08:00 03/24/25 08:00 03/24/25 08:00 03/24/25 08:00 Laboratory Results - last 24 hr 03/24/25 05:43: WBC 6.0, RBC 3.31 L, Hgb 9.5 L, Hct 28.4 L, MCV 85.8, MCH 28.7, MCHC 33.5, RDW 15.7, Plt Count 211, MPV 10.4, Neut % (Auto) 64.9, Lymph % (Auto) 27.2, [place] % (Auto) 4.3, Eos % (Auto) 2.7, Baso % (Auto) 0.7, Neut # (Auto) 3.9, Lymph # (Auto) 1.6, [place] # (Auto) 0.3, Eos # (Auto) 0.2, Baso # (Auto) 0.0, Sodium 133 L, Potassium 3.8, Chloride 100, Carbon Dioxide 28, Anion Gap 8.8, BUN 26 H D, Creatinine 1.80 H D, Estimated Creat Clear 43, Estimated GFR 29 L, Est GFR ( Amer) 35 L D, Glucose 225 H, Calcium 8.4, Magnesium 1.5 L D, Total Bilirubin 0.3, AST 20, ALT 15, Alkaline Phosphatase 58, Total Protein 5.9 L, Albumin 3.5 D, Globulin 2.4, Albumin/Globulin Ratio 1.5 Temp Pulse Resp BP Pulse Ox O2 Del Method O2 Flow Rate 97.8 F 87 16 131/78 93 L Nasal Cannula 2 03/24/25 08:00 03/24/25 08:00 03/24/25 08:00 03/24/25 08:00 03/24/25 08:00 03/24/25 08:00 03/24/25 08:00 Laboratory Results - last 24 hr 03/24/25 05:43: WBC 6.0, RBC 3.31 L, Hgb 9.5 L, Hct 28.4 L, MCV 85.8, MCH 28.7, MCHC 33.5, RDW 15.7, Plt Count 211, MPV 10.4, Neut % (Auto) 64.9, Lymph % (Auto) 27.2, [place] % (Auto) 4.3, Eos % (Auto) 2.7, Baso % (Auto) 0.7, Neut # (Auto) 3.9, Lymph # (Auto) 1.6, [place] # (Auto) 0.3, Eos # (Auto) 0.2, Baso # (Auto) 0.0, Sodium 133 L, Potassium 3.8, Chloride 100, Carbon Dioxide 28, Anion Gap 8.8, BUN 26 H D, Creatinine 1.80 H D, Estimated Creat Clear 43, Estimated GFR 29 L, Est GFR ( Amer) 35 L D, Glucose 225 H, Calcium 8.4, Magnesium 1.5 L D, Total Bilirubin 0.3, AST 20, ALT 15, Alkaline Phosphatase 58, Total Protein 5.9 L, Albumin 3.5 D, Globulin 2.4, Albumin/Globulin Ratio 1.5 I & O for Last 24 hours: Intake & Output 03/21/25 03/22/25 03/23/25 03/24/25 23:59 23:59 23:59 23:59 Intake Total 100 / 100 1110 / 1110 300 / 300 Output Total 2300 / 2300 2350 / 2850 500 / 500 Balance -2200 / -2200 -1240 / -1740 -200 / -200 Weight 75.886 kg 75.75 kg 76.702 kg Intake & Output 03/21/25 03/22/25 03/23/25 03/24/25 23:59 23:59 23:59 23:59 Intake Total 100 / 100 1110 / 1110 300 / 300 Output Total 2300 / 2300 2350 / 2850 500 / 500 Balance -2200 / -2200 -1240 / -1740 -200 / -200 Weight 167 lb 4.8 oz 167 lb 169 lb 1.6 oz Constitutional Constitutional: no acute distress *Routine Respiratory Exam Respiratory: Present wheezes and symmetric chest movement *Routine Cardiovascular Exam Cardiovascular: Present RRR, Normal S1 and Normal S2 *Routine Abdominal Exam Abdominal: Present soft and normoactive bowel sounds; Absent tenderness *Routine Extremities Exam Extremities: Present full ROM and normal capillary refill; Absent edema Comments: Improving bilateral ankle swelling. *Routine Skin Exam Skin: Present intact, dry and warm Detailed Neck Exam: Thyroids Thyroid: Absent bruit Assessment and Plan *Assessment and plan (1) Acute on chronic combined systolic (congestive) and diastolic (congestive) heart failure: Status: Acute Category: Medical Code(s): I50.43 - Acute on chronic combined systolic (congestive) and diastolic (congestive) heart failure (2) Non-ST elevation [place] (NSTEMI): Status: Acute Category: Medical Code(s): I21.4 - Non-ST elevation (NSTEMI) myocardial infarction (3) Uncontrolled diabetes mellitus: Status: Acute Qualifiers: Diabetes mellitus type: type 1 Glycemic state: with hyperglycemia Qualified Code(s): E10.65 - Type 1 diabetes mellitus with hyperglycemia Category: Medical (4) CKD (chronic kidney disease): Status: Acute Qualifiers: Chronic kidney disease stage: stage 4 (GFR 15-29) Qualified Code(s): N18.4 - Chronic kidney disease, stage 4 (severe) Category: Medical Code(s): N18.9 - Chronic kidney disease, unspecified (5) HTN (hypertension): Status: Acute Qualifiers: Hypertension type: essential hypertension Qualified Code(s): I10 - Essential (primary) hypertension Category: Medical Code(s): I10 - Essential (primary) hypertension (6) History of stroke: Status: Acute Category: Medical Code(s): Z86.73 - Personal history of transient ischemic attack (TIA), and cerebral infarction without residual deficits (7) HLD (hyperlipidemia): Status: Acute Qualifiers: Hyperlipidemia type: mixed hyperlipidemia Qualified Code(s): E78.2 - Mixed hyperlipidemia Category: Medical Code(s): E78.5 - Hyperlipidemia, unspecified Plan This patient with a complex medical history of combined heart failure as well as significant CKD presents to the ER with complaints of shortness of breath and pitting edema. Recently presented here with a creatinine of 5.5 and was transferred to an outside hospital for nephrology evaluation. Ultimately he creatinine improved with fluids and albumin and upon discharge creatinine was 3.3. She was discharged on 5 mg of torsemide daily. She presents today with increasing shortness of breath and pedal edema and is found to have a BNP of 28,900. Troponin is 0.05. Dr. Freire was contacted by the ER physician and agreed to admit the patient for further workup and treatment. #Large bilateral pleural effusions Acute on chronic combined systolic and diastolic heart failure?most recent EF is 40 to 45%. There WAS severe hypokinesis of the septal inferoseptal and anteroseptal left ventricular cloud there is also grade 1 diastolic dysfunction. She was given 120 mg of IV Lasix in the ER. ? Repeat ECHO on 03/23/2025 revealed worsened LVEF to 30 to 35% with wall motion abnormalities. Discussed with cardiology, given significant history of severe contrast nephropathy will defer LHC for now and reconsider on an outpatient basis. ? Decreased IV Bumex 1 mg twice daily, spironolactone 25 mg. Diuresing well, net -4 L. Discontinued Jardiance as nephrology previously recommended to do so in the setting of CKD. ? Started fluid restriction at 1500 cc. ? This morning, patient was having creased work of breathing. CXR shows bibasilar opacities with associated pleural effusions. Improved this this afternoon after continued diuresis and starting DuoNebs. ? Follow-up morning CMP, magnesium. #JOSELUIS on CKD CKD monitor kidney function as well as volume status and electrolytes. She does see nephrology as an outpatient and will need to follow-up upon discharge. ? Creatinine bumped from 1.4-1.8 in the setting of diuresis. Diuretics decreased, continue to monitor. ? Follow-up morning CMP. NSTEMI H/O CABG -troponins plateaued, no chest pain. ? Repeat ECHO on 03/23/2025 revealed worsened LVEF to 30 to 35% with wall motion abnormalities. Discussed with cardiology, given significant history of severe contrast nephropathy will defer LHC for now and reconsider on an outpatient basis. ? Continue Plavix 75 mg, metoprolol succinate 25 mg. Diabetes mellitus?patient states she stopped her insulin pump yesterday because it was bottoming her out. We will provide basal insulin as well as sliding scale insulin. ? Hemoglobin A1c 7.5%. Hypertension blood pressure improved after diuresis. History of stroke?We will continue her Plavix. Full code DVT prophylaxis: Lovenox 40 mg
[2025-03-24 11:54] LABS: C-Reactive Protein 4.0 mg/L (0-4)
[2025-03-24 12:08] LABS: Procalcitonin 0.074 ng/mL (0.0-2.0)
[2025-03-24] MEDS: SODIUM CHLORIDE 0.9% 10ML VIAL 10 ML IV ×2 (12:12→20:09)
[2025-03-24] MEDS: PANTOPRAZOLE 40MG VIAL 40 MG IV ×2 (12:12→20:09)
[2025-03-24] MEDS: ACETAMINOPHEN 325MG TAB 650 MG PO (14:14)
--- NOTE | 2025-03-24 16:03 | PC.NURSE ---
Patient dexcom reporting blood sugar as 219
[2025-03-24 16:33] LABS: Anion Gap 10.7 mEq/L (5-15); Blood Urea Nitrogen 27 mg/dl (7-17); Calcium 8.5 mg/dl (8.4-10.2); Carbon Dioxide 24 mmol/L (22.0-30.0); Chloride 99 mmol/L (98-107); Creatinine Clearance Estimated 43 mL/min (50-200); Creatinine,Serum 1.80 mg/dl (0.52-1.04); Estimated Glomerular Filt Rate 29 ml/min (>60); GFR (African American) 35 ML/MIN (>60); Glucose 220 mg/dl (74-100); Potassium 3.7 mmoL/L (3.5-5.1); Sodium 130 mmol/L (136-145)
[2025-03-24] MEDS: INSULIN GLARGINE 100 UNITS/ML 3ML FLEXPEN 20 UNIT SUBCUT (20:09)
[2025-03-24] MEDS: GABAPENTIN 300MG CAPSULE 300 MG PO (20:09)
[2025-03-25] VITALS (10 sets, daily range): BP systolic 124–169; BP diastolic 67–89; PULSE 79–92; RESP 14–18; TEMP 36.6–37; O2SAT 91–97; BMI 28.6
[2025-03-25 05:54] LABS: POC Glucose,Bedside 249 gm/dL (70-110)
[2025-03-25] MEDS: humaLOG 100 UNITS/ML 10ML VIAL (SSI) SUBCUT ×4 (05:58→20:14)
[2025-03-25 06:31] LABS: Hematocrit 29.5 % (37.0-47.0); Hemoglobin 9.7 g/dL (12.2-16.2); Immature Granulocytes % 0.2 %; Mean Corpuscular HGB Conc 32.9 g/dL (31.8-35.4); Mean Corpuscular Hemoglobin 28.4 pg (27.0-31.2); Mean Corpuscular Volume 86.5 fl (81-99); Nucleated Red Blood Cells % 0 %; Platelet Count 203 K/mm3 (142-424); Red Blood Count 3.41 M/mm3 (4.20-5.40); Red Cell Distribution Width-SD 49.6 fL; White Blood Count 5.0 K/mm3 (4.8-10.8)
[2025-03-25] MEDS: IPRATROPIUM/ALBUTEROL 3 ML NEB IH (06:37)
[2025-03-25 06:38] LABS: Alanine Aminotransferase 13 U/L (12-78); Albumin Level 3.8 g/dl (3.5-5.0); Albumin/Globulin Ratio 1.5 (1.1-1.8); Alkaline Phosphatase 60 U/L (38-126); Anion Gap 12.6 mEq/L (5-15); Aspartate Amino Transferase 19 U/L (14-36); Bilirubin,Total 0.3 mg/dl (0.2-1.3); Blood Urea Nitrogen 28 mg/dl (7-17); Calcium 8.8 mg/dl (8.4-10.2); Carbon Dioxide 23 mmol/L (22.0-30.0); Chloride 101 mmol/L (98-107); Creatinine Clearance Estimated 42 mL/min (50-200); Creatinine,Serum 1.80 mg/dl (0.52-1.04); Estimated Glomerular Filt Rate 29 ml/min (>60); GFR (African American) 35 ML/MIN (>60); Globulin 2.5 g/dL (1.3-3.2); Glucose 242 mg/dl (74-100); Magnesium 2.0 mg/dl (1.6-2.3); Potassium 3.6 mmoL/L (3.5-5.1); Sodium 133 mmol/L (136-145); Total Protein,Serum 6.3 g/dl (6.3-8.2)
[2025-03-25] MEDS: HYDRALAZINE HCL 25MG TABLET 25 MG PO ×3 (08:36→20:14)
[2025-03-25] MEDS: PANTOPRAZOLE 40MG VIAL 40 MG IV ×2 (08:36→20:14)
[2025-03-25] MEDS: SODIUM CHLORIDE 0.9% 10ML VIAL 10 ML IV ×2 (08:36→20:14)
[2025-03-25] MEDS: ISOSORBIDE DINITRATE 20 MG TABLET PO ×3 (08:36→20:14)
[2025-03-25] MEDS: METOPROLOL SUCCINATE XL 25MG TABLET 25 MG PO (08:36)
[2025-03-25] MEDS: SPIRONOLACTONE 25MG TABLET 25 MG PO (08:36)
[2025-03-25] MEDS: CLOPIDOGREL 75MG TAB 75 MG PO (08:36)
[2025-03-25] MEDS: BUMETANIDE 1MG/4ML VIAL 1 MG IV ×2 (08:37→16:10)
--- NOTE | 2025-03-25 09:10 | EXP.CARD.PN ---
Subjective Subjective Date: 03/25/25 Time: 08:00 Principal diagnosis: HFrEF exacerbation Interval history: Reports soa has improved with neb treatments, abdominal swelling and LE edema is improving. Morning labs reviewed. Creatinine remains stable at 1.8. Exam Data for Last 24 hours Vital signs and Labs for Last 24 Hours: Temp Pulse Resp BP Pulse Ox O2 Del Method O2 Flow Rate 98.5 F 92 H 16 169/82 H 92 L Nasal Cannula 1 03/25/25 08:00 03/25/25 08:00 03/25/25 08:00 03/25/25 08:00 03/25/25 08:00 03/25/25 08:00 03/25/25 08:00 Laboratory Results - last 24 hr 03/24/25 05:43: C-Reactive Protein 4.0, Procalcitonin 0.074 03/24/25 16:15: Sodium 130 L, Potassium 3.7, Chloride 99, Carbon Dioxide 24, Anion Gap 10.7, BUN 27 H, Creatinine 1.80 H, Estimated Creat Clear 43, Estimated GFR 29 L, Est GFR ( Amer) 35 L, Glucose 220 H, Calcium 8.5 03/25/25 05:44: POC Glucose 249 H 03/25/25 05:46: WBC 5.0, RBC 3.41 L, Hgb 9.7 L, Hct 29.5 L, MCV 86.5, MCH 28.4, MCHC 32.9, RDW 15.9, Plt Count 203, MPV 10.1, Neut % (Auto) 68.7, Lymph % (Auto) 22.5, [place] % (Auto) 5.4, Eos % (Auto) 2.6, Baso % (Auto) 0.6, Neut # (Auto) 3.4, Lymph # (Auto) 1.1, [place] # (Auto) 0.3, Eos # (Auto) 0.1, Baso # (Auto) 0.0, Sodium 133 L, Potassium 3.6, Chloride 101, Carbon Dioxide 23, Anion Gap 12.6, BUN 28 H, Creatinine 1.80 H, Estimated Creat Clear 42, Estimated GFR 29 L, Est GFR ( Amer) 35 L, Glucose 242 H, Calcium 8.8, Magnesium 2.0 D, Total Bilirubin 0.3, AST 19, ALT 13, Alkaline Phosphatase 60, Total Protein 6.3, Albumin 3.8, Globulin 2.5, Albumin/Globulin Ratio 1.5 I & O for Last 24 hours: Intake & Output 03/22/25 03/23/25 03/24/25 03/25/25 23:59 23:59 23:59 23:59 Intake Total 100 / 100 1110 / 1110 1010 / 1250 240 / 240 Output Total 2300 / 2300 2350 / 2850 1900 / 1900 1250 / 1250 Balance -2200 / -2200 -1240 / -1740 -890 / -650 -1010 / -1010 Weight 167 lb 4.8 oz 167 lb 169 lb 1.6 oz 167 lb 9.6 oz Constitutional Constitutional: no acute distress *Routine Respiratory Exam Respiratory: Present CTA bilaterally and symmetric chest movement *Routine Cardiovascular Exam Cardiovascular: Present RRR, Normal S1 and Normal S2 *Routine Abdominal Exam Abdominal: Present soft and normoactive bowel sounds; Absent tenderness *Routine Extremities Exam Extremities: Present full ROM and normal capillary refill; Absent edema *Routine Skin Exam Skin: Present intact, dry and warm Detailed Neck Exam: Thyroids Thyroid: Absent bruit Progress Note: A&P Assessment and plan (1) Acute on chronic combined systolic (congestive) and diastolic (congestive) heart failure: Status: Acute (2) Non-ST elevation [place] (NSTEMI): Status: Acute (3) Uncontrolled diabetes mellitus: Status: Acute (4) CKD (chronic kidney disease): Status: Acute (5) HTN (hypertension): Status: Acute (6) History of stroke: Status: Acute (7) HLD (hyperlipidemia): Status: Acute Assessment and Plan Assessment and Plan for All Diagnoses:: Acute on chronic HFrEF Shortness of breath, lower extremity edema and moderate to large bilateral effusions were noted on chest CT on admission Ejection fraction has further decreased from 40 to 45% down to 35 to 40%. Patient is negative 5 Liters Continue Bumex Contine Aldactone 25 mg p.o. daily Continue hydralazine and Imdur Continue beta-katina No jardiance or Farxiga per nephrology per patient Coronary artery disease History of CABG Acute myocardial injury in the setting of volume overload Troponin 0.05 trending down 0.04 in the setting of volume overload EKG negative for STEMI Ejection fraction has decreased further to 35 to 40% I discussed proceeding with left heart catheterization for reduced ejection fraction with both Dr. Randolph and Dr. Fan who both agree given patient's extensive history of worsening kidney function with contrast dye we will hold off on pursuing left heart catheterization at this time. Will maximize guideline directed medical therapy and evaluate further on outpatient basis. Continue Plavix. Patient reports cannot tolerate statins. Consider addition of Repatha or Leqvio on outpatient basis Chronic kidney disease Recently creatinine was elevated above 5 Creatinine elevates every time contrast is used Today kidney function is 1.8 Will continue to monitor CV summary 03/25/2025: Symptoms improving. Creatinine stable. continue meds as outlined below. Cardiac meds: Plavix 75 mg p.o. daily Jardiance 10 mg p.o. daily-hold patient reports nephrology told her not to take Jardiance or Farxiga Bumex 1 mg IV twice daily Hydralazine 25 mg p.o. 3 times daily Isosorbide dinitrate 20 mg p.o. 3 times daily Metoprolol succinate 25 mg p.o. daily Aldactone 25 mg p.o. daily
[2025-03-25 11:26] LABS: POC Glucose,Bedside 259 gm/dL (70-110)
[2025-03-25] MEDS: ACETAMINOPHEN 325MG TAB 650 MG PO (16:09)
[2025-03-25 16:13] LABS: POC Glucose,Bedside 290 gm/dL (70-110)
--- NOTE | 2025-03-25 18:54 | P.PN_ITS ---
Subjective *Date: 03/25/25 *Time: 23:04 Interval history: Patient is feeling better today, weaned to room air. COntinues to have bilateral pleural effusion, peripheral edema. High risk of decompensation. WIll continue to IV diurese. Exam Data for Last 24 hours Vital signs and Labs for Last 24 Hours: Temp Pulse Resp BP Pulse Ox O2 Del Method O2 Flow Rate 98.6 F 83 16 140/73 93 L Room Air 1 03/25/25 16:00 03/25/25 16:00 03/25/25 16:00 03/25/25 16:00 03/25/25 16:00 03/25/25 16:56 03/25/25 09:05 Laboratory Results - last 24 hr 03/25/25 05:44: POC Glucose 249 H 03/25/25 05:46: WBC 5.0, RBC 3.41 L, Hgb 9.7 L, Hct 29.5 L, MCV 86.5, MCH 28.4, MCHC 32.9, RDW 15.9, Plt Count 203, MPV 10.1, Neut % (Auto) 68.7, Lymph % (Auto) 22.5, [place] % (Auto) 5.4, Eos % (Auto) 2.6, Baso % (Auto) 0.6, Neut # (Auto) 3.4, Lymph # (Auto) 1.1, [place] # (Auto) 0.3, Eos # (Auto) 0.1, Baso # (Auto) 0.0, Sodium 133 L, Potassium 3.6, Chloride 101, Carbon Dioxide 23, Anion Gap 12.6, BUN 28 H, Creatinine 1.80 H, Estimated Creat Clear 42, Estimated GFR 29 L, Est GFR ( Amer) 35 L, Glucose 242 H, Calcium 8.8, Magnesium 2.0 D, Total Bilirubin 0.3, AST 19, ALT 13, Alkaline Phosphatase 60, Total Protein 6.3, Albumin 3.8, Globulin 2.5, Albumin/Globulin Ratio 1.5 03/25/25 11:03: POC Glucose 259 H 03/25/25 16:05: POC Glucose 290 H I & O for Last 24 hours: Intake & Output 03/22/25 03/23/25 03/24/25 03/25/25 23:59 23:59 23:59 23:59 Intake Total 100 / 100 1110 / 1110 1010 / 1250 1200 / 1200 Output Total 2300 / 2300 2350 / 2850 1900 / 1900 3400 / 3400 Balance -2200 / -2200 -1240 / -1740 -890 / -650 -2200 / -2200 Weight 75.886 kg 75.75 kg 76.702 kg 76.022 kg Constitutional Constitutional: no acute distress *Routine Respiratory Exam Respiratory: Present CTA bilaterally and symmetric chest movement *Routine Cardiovascular Exam Cardiovascular: Present RRR, Normal S1 and Normal S2 *Routine Abdominal Exam Abdominal: Present soft and normoactive bowel sounds; Absent tenderness *Routine Extremities Exam Extremities: Present full ROM and normal capillary refill; Absent edema *Routine Skin Exam Skin: Present intact, dry and warm Detailed Neck Exam: Thyroids Thyroid: Absent bruit Assessment and Plan *Assessment and plan (1) Acute on chronic combined systolic (congestive) and diastolic (congestive) heart failure: Status: Acute Category: Medical Code(s): I50.43 - Acute on chronic combined systolic (congestive) and diastolic (congestive) heart failure (2) Non-ST elevation [place] (NSTEMI): Status: Acute Category: Medical Code(s): I21.4 - Non-ST elevation (NSTEMI) myocardial infarction (3) Uncontrolled diabetes mellitus: Status: Acute Qualifiers: Diabetes mellitus type: type 1 Glycemic state: with hyperglycemia Qualified Code(s): E10.65 - Type 1 diabetes mellitus with hyperglycemia Category: Medical (4) CKD (chronic kidney disease): Status: Acute Qualifiers: Chronic kidney disease stage: stage 4 (GFR 15-29) Qualified Code(s): N18.4 - Chronic kidney disease, stage 4 (severe) Category: Medical Code(s): N18.9 - Chronic kidney disease, unspecified (5) HTN (hypertension): Status: Acute Qualifiers: Hypertension type: essential hypertension Qualified Code(s): I10 - Essential (primary) hypertension Category: Medical Code(s): I10 - Essential (primary) hypertension (6) History of stroke: Status: Acute Category: Medical Code(s): Z86.73 - Personal history of transient ischemic attack (TIA), and cerebral infarction without residual deficits (7) HLD (hyperlipidemia): Status: Acute Qualifiers: Hyperlipidemia type: mixed hyperlipidemia Qualified Code(s): E78.2 - Mixed hyperlipidemia Category: Medical Code(s): E78.5 - Hyperlipidemia, unspecified Plan This patient with a complex medical history of combined heart failure as well as significant CKD presents to the ER with complaints of shortness of breath and pitting edema. Recently presented here with a creatinine of 5.5 and was transferred to an outside hospital for nephrology evaluation. Ultimately he creatinine improved with fluids and albumin and upon discharge creatinine was 3.3. She was discharged on 5 mg of torsemide daily. She presents today with increasing shortness of breath and pedal edema and is found to have a BNP of 28,900. Troponin is 0.05. Dr. Freire was contacted by the ER physician and agreed to admit the patient for further workup and treatment. #Large bilateral pleural effusions Acute on chronic combined systolic and diastolic heart failure?most recent EF is 40 to 45%. There WAS severe hypokinesis of the septal inferoseptal and anteroseptal left ventricular cloud there is also grade 1 diastolic dysfunction. She was given 120 mg of IV Lasix in the ER. ? Repeat ECHO on 03/23/2025 revealed worsened LVEF to 30 to 35% with wall motion abnormalities. Discussed with cardiology, given significant history of severe contrast nephropathy will defer LHC for now and reconsider on an outpatient basis. ? COntinue IV Bumex 1 mg twice daily, spironolactone 25 mg. Diuresing well, net -6.5 L. Discontinued Jardiance as nephrology previously recommended to do so in the setting of CKD. ? Continue fluid restriction at 1500 cc. ? Patient is feeling better today, weaned to room air. COntinues to have bilateral pleural effusion, peripheral edema. High risk of decompensation. WIll continue to IV diurese. ? Follow-up morning CMP, magnesium. #JOSELUIS on CKD CKD monitor kidney function as well as volume status and electrolytes. She does see nephrology as an outpatient and will need to follow-up upon discharge. ? Creatinine stable at 1.8 in the setting of diuresis. Diuretics decreased, continue to monitor. ? Follow-up morning CMP. NSTEMI H/O CABG -troponins plateaued, no chest pain. ? Repeat ECHO on 03/23/2025 revealed worsened LVEF to 30 to 35% with wall motion abnormalities. Discussed with cardiology, given significant history of severe contrast nephropathy will defer LHC for now and reconsider on an outpatient basis. ? Continue Plavix 75 mg, metoprolol succinate 25 mg. Diabetes mellitus?patient states she stopped her insulin pump yesterday because it was bottoming her out. We will provide basal insulin as well as sliding scale insulin. ? Hemoglobin A1c 7.5%. Hypertension blood pressure improved after diuresis. History of stroke?We will continue her Plavix. Full code DVT prophylaxis: Lovenox 40 mg
[2025-03-25] MEDS: GABAPENTIN 300MG CAPSULE 300 MG PO (20:14)
[2025-03-25] MEDS: INSULIN GLARGINE 100 UNITS/ML 3ML FLEXPEN 20 UNIT SUBCUT (20:15)
[2025-03-26] VITALS (7 sets, daily range): BP systolic 117–155; BP diastolic 60–90; PULSE 75–88; RESP 14–16; TEMP 36.4–36.8; O2SAT 92–96; BMI 28.5
[2025-03-26] MEDS: BENZONATATE 100MG CAPSULE 100 MG PO (05:05)
[2025-03-26 05:12] LABS: POC Glucose,Bedside 267 gm/dL (70-110)
[2025-03-26] MEDS: humaLOG 100 UNITS/ML 10ML VIAL (SSI) SUBCUT ×2 (05:43→10:20)
[2025-03-26 05:48] LABS: Hematocrit 29.5 % (37.0-47.0); Hemoglobin 9.6 g/dL (12.2-16.2); Immature Granulocytes % 0.2 %; Mean Corpuscular HGB Conc 32.5 g/dL (31.8-35.4); Mean Corpuscular Hemoglobin 28.2 pg (27.0-31.2); Mean Corpuscular Volume 86.5 fl (81-99); Nucleated Red Blood Cells % 0 %; Platelet Count 215 K/mm3 (142-424); Red Blood Count 3.41 M/mm3 (4.20-5.40); Red Cell Distribution Width-SD 50.5 fL; White Blood Count 4.4 K/mm3 (4.8-10.8)
[2025-03-26 05:58] LABS: Alanine Aminotransferase 14 U/L (12-78); Albumin Level 3.7 g/dl (3.5-5.0); Albumin/Globulin Ratio 1.5 (1.1-1.8); Alkaline Phosphatase 54 U/L (38-126); Anion Gap 10.9 mEq/L (5-15); Aspartate Amino Transferase 21 U/L (14-36); Bilirubin,Total 0.3 mg/dl (0.2-1.3); Blood Urea Nitrogen 32 mg/dl (7-17); Calcium 9.0 mg/dl (8.4-10.2); Carbon Dioxide 23 mmol/L (22.0-30.0); Chloride 103 mmol/L (98-107); Creatinine Clearance Estimated 38 mL/min (50-200); Creatinine,Serum 2.00 mg/dl (0.52-1.04); Estimated Glomerular Filt Rate 26 ml/min (>60); GFR (African American) 31 ML/MIN (>60); Globulin 2.4 g/dL (1.3-3.2); Glucose 249 mg/dl (74-100); Magnesium 1.6 mg/dl (1.6-2.3); Potassium 3.9 mmoL/L (3.5-5.1); Sodium 133 mmol/L (136-145); Total Protein,Serum 6.1 g/dl (6.3-8.2)
[2025-03-26] MEDS: PANTOPRAZOLE 40MG VIAL 40 MG IV (07:57)
[2025-03-26] MEDS: CLOPIDOGREL 75MG TAB 75 MG PO (07:58)
[2025-03-26] MEDS: SPIRONOLACTONE 25MG TABLET 25 MG PO (07:58)
[2025-03-26] MEDS: ISOSORBIDE DINITRATE 20 MG TABLET PO ×2 (07:58→13:23)
[2025-03-26] MEDS: HYDRALAZINE HCL 25MG TABLET 25 MG PO ×2 (07:58→13:22)
[2025-03-26] MEDS: METOPROLOL SUCCINATE XL 25MG TABLET 25 MG PO (07:58)
[2025-03-26] MEDS: BUMETANIDE 1 MG TABLET PO (08:01)
[2025-03-26] MEDS: MAGNESIUM SULFATE IN WATER 2 GM/50 ML PIGGYBACK IV ×2 (08:01→08:47)
[2025-03-26] MEDS: GABAPENTIN 300MG CAPSULE 300 MG PO (08:10)
--- NOTE | 2025-03-26 09:13 | EXP.CARD.PN ---
Subjective Subjective Date: 03/26/25 Time: 08:00 Principal diagnosis: HFrEF exacerbation Interval history: Patient reports mild soa today. Morning labs reviewed and stable. Creatinine today is 2. Patient is -6.8 L. Exam Data for Last 24 hours Vital signs and Labs for Last 24 Hours: Temp Pulse Resp BP Pulse Ox O2 Del Method O2 Flow Rate 97.6 F 80 14 137/70 96 Nasal Cannula 1 03/26/25 08:00 03/26/25 08:00 03/26/25 08:00 03/26/25 08:00 03/26/25 08:00 03/26/25 08:19 03/26/25 08:19 Laboratory Results - last 24 hr 03/25/25 11:03: POC Glucose 259 H 03/25/25 16:05: POC Glucose 290 H 03/26/25 05:04: POC Glucose 267 H 03/26/25 05:30: WBC 4.4 L, RBC 3.41 L, Hgb 9.6 L, Hct 29.5 L, MCV 86.5, MCH 28.2, MCHC 32.5, RDW 16.0, Plt Count 215, MPV 10.1, Neut % (Auto) 63.1, Lymph % (Auto) 27.1, [place] % (Auto) 5.5, Eos % (Auto) 3.4, Baso % (Auto) 0.7, Neut # (Auto) 2.7, Lymph # (Auto) 1.2, [place] # (Auto) 0.2, Eos # (Auto) 0.2, Baso # (Auto) 0.0, Sodium 133 L, Potassium 3.9, Chloride 103, Carbon Dioxide 23, Anion Gap 10.9, BUN 32 H, Creatinine 2.00 H, Estimated Creat Clear 38, Estimated GFR 26 L, Est GFR ( Amer) 31 L, Glucose 249 H, Calcium 9.0, Magnesium 1.6 D, Total Bilirubin 0.3, AST 21, ALT 14, Alkaline Phosphatase 54, Total Protein 6.1 L, Albumin 3.7, Globulin 2.4, Albumin/Globulin Ratio 1.5 I & O for Last 24 hours: Intake & Output 03/23/25 03/24/25 03/25/25 03/26/25 23:59 23:59 23:59 23:59 Intake Total 1110 / 1110 1010 / 1250 1200 / 1200 438.333 / 438.333 Output Total 2350 / 2850 1900 / 1900 3400 / 3400 800 / 800 Balance -1240 / -1740 -890 / -650 -2200 / -2200 -361.667 / -361.667 Weight 167 lb 169 lb 1.6 oz 167 lb 9.6 oz 167 lb 1.6 oz Constitutional Constitutional: no acute distress *Routine Respiratory Exam Respiratory: Present CTA bilaterally and symmetric chest movement *Routine Cardiovascular Exam Cardiovascular: Present RRR, Normal S1 and Normal S2 *Routine Abdominal Exam Abdominal: Present soft and normoactive bowel sounds; Absent tenderness *Routine Extremities Exam Extremities: Present full ROM and normal capillary refill; Absent edema *Routine Skin Exam Skin: Present intact, dry and warm Detailed Neck Exam: Thyroids Thyroid: Absent bruit Progress Note: A&P Assessment and plan (1) Acute on chronic combined systolic (congestive) and diastolic (congestive) heart failure: Status: Acute (2) Non-ST elevation [place] (NSTEMI): Status: Acute (3) Uncontrolled diabetes mellitus: Status: Acute (4) CKD (chronic kidney disease): Status: Acute (5) HTN (hypertension): Status: Acute (6) History of stroke: Status: Acute (7) HLD (hyperlipidemia): Status: Acute Assessment and Plan Assessment and Plan for All Diagnoses:: Acute on chronic HFrEF Shortness of breath, lower extremity edema and moderate to large bilateral effusions were noted on chest CT on admission Ejection fraction has further decreased from 40 to 45% down to 35 to 40%. Patient is negative 6.8 Liters Continue Bumex and transition to oral Contine Aldactone 25 mg p.o. daily Continue hydralazine and Imdur Continue beta-katina No jardiance or Farxiga per nephrology per patient Coronary artery disease History of CABG Acute myocardial injury in the setting of volume overload Troponin 0.05 trending down 0.04 in the setting of volume overload EKG negative for STEMI Ejection fraction has decreased further to 35 to 40% I discussed proceeding with left heart catheterization for reduced ejection fraction with both Dr. Randolph and Dr. Fna who both agree given patient's extensive history of worsening kidney function with contrast dye we will hold off on pursuing left heart catheterization at this time. Will maximize guideline directed medical therapy and evaluate further on outpatient basis. Continue Plavix. Patient reports cannot tolerate statins. Consider addition of Repatha or Leqvio on outpatient basis Chronic kidney disease Recently creatinine was elevated above 5 Creatinine elevates every time contrast is used Today kidney function is 2 Will continue to monitor 03/26/2025: Patient is cv stable. Change IV bumex to oral. Have patient follow up in cardiology clinic in 1-2 weeks. Cards will sign off. Cardiac meds: Plavix 75 mg p.o. daily Jardiance 10 mg p.o. daily-hold patient reports nephrology told her not to take Jardiance or Farxiga Bumex 1 mg p.o. BID Hydralazine 25 mg p.o. 3 times daily Isosorbide dinitrate 20 mg p.o. 3 times daily Metoprolol succinate 25 mg p.o. daily Aldactone 25 mg p.o. daily
--- NOTE | 2025-03-26 09:24 | XR_ITS ---
FINAL REPORT CLINICAL HISTORY: f/u pleural effusions COMPARISON: 03/24/2025 FINDINGS: CHEST 1 VIEW The heart is mildly enlarged. The patient is status post median sternotomy. There is a decreased right pleural effusion with a small residual pleural effusion present. There is a small left pleural effusion. Atelectasis at the right base has improved. Atelectasis at the left base is similar to prior exam. There is no pneumothorax. There is no osseous abnormality. IMPRESSION: Improved right pleural effusion with improved right lower lobe atelectasis. Stable left pleural effusion with stable left base atelectasis. Reviewed, Interpreted and Dictated by Santos Hendrickson MD Transcribed by Emily Alvarado Authenticated and . [facility]
[2025-03-26 10:24] LABS: POC Glucose,Bedside 190 gm/dL (70-110)
[2025-03-26] MEDS: IPRATROPIUM/ALBUTEROL 3 ML NEB IH (10:53)
--- NOTE | 2025-03-26 14:41 | P.DS_ITS ---
General Admission date:: 03/22/25 HPI HPI HPI: 54-year-old female patient presents to ER with complaints of shortness of breath and pedal edema. She also complains of some chest pain described as both heaviness and fullness. Initially was a 10/10 now she states it is just uncomfortable, she does not rated on a pain scale. She has had several hospitalizations recently. Discharged on March 11 from [facility] where she was treated for JOSELUIS. Potassium was 5.5. She was given fluids and albumin and was evaluated by nephrology. They did not have to do dialysis. Renal function did improve and she was discharged home on 5 mg of torsemide daily. Discharge creatinine was 3.3. Today she presents with shortness of breath and pedal edema. She has got diminished breath sounds with crackles. And she has a BNP level of 28,900. She has known congestive heart failure with an EF of 40 to 45% with severe hypokinesis of the septal inferior septal and anterior septal LV cloud. Troponins are 0.05 and 0.04. In the ER she received 4 g of magnesium, a total 1120 mg of Lasix as well as morphine. She denies fever chills or bodyaches. Denies cough. Denies nausea vomiting or diarrhea. Does complain of some pain in her lower back which she states is my kidneys but states this is at her baseline. She does have a follow-up appointment with nephrology. Hospital Course Hospital Course Hospital Course: Total time spent on discharge: 32 minutes on chart review, counseling, documentation, and direct care with patient. Exam Data for Last 24 hours Vital signs and Labs for Last 24 Hours: Temp Pulse Resp BP Pulse Ox O2 Del Method O2 Flow Rate 98.1 F 88 16 140/75 94 L Room Air 1 03/26/25 11:03/26/25 12:00 03/26/25 11:03/26/25 11:03/26/25 11:03/26/25 13:00 03/26/25 10:55 Laboratory Results - last 24 hr 03/25/25 16:05: POC Glucose 290 H 03/26/25 05:04: POC Glucose 267 H 03/26/25 05:30: WBC 4.4 L, RBC 3.41 L, Hgb 9.6 L, Hct 29.5 L, MCV 86.5, MCH 28.2, MCHC 32.5, RDW 16.0, Plt Count 215, MPV 10.1, Neut % (Auto) 63.1, Lymph % (Auto) 27.1, [place] % (Auto) 5.5, Eos % (Auto) 3.4, Baso % (Auto) 0.7, Neut # (Auto) 2.7, Lymph # (Auto) 1.2, [place] # (Auto) 0.2, Eos # (Auto) 0.2, Baso # (Auto) 0.0, Sodium 133 L, Potassium 3.9, Chloride 103, Carbon Dioxide 23, Anion Gap 10.9, BUN 32 H, Creatinine 2.00 H, Estimated Creat Clear 38, Estimated GFR 26 L, Est GFR ( Amer) 31 L, Glucose 249 H, Calcium 9.0, Magnesium 1.6 D, Total Bilirubin 0.3, AST 21, ALT 14, Alkaline Phosphatase 54, Total Protein 6.1 L, Albumin 3.7, Globulin 2.4, Albumin/Globulin Ratio 1.5 03/26/25 10:11: POC Glucose 190 H I & O for Last 24 hours: Intake & Output 03/23/25 03/24/25 03/25/25 03/26/25 23:59 23:59 23:59 23:59 Intake Total 1110 / 1110 1010 / 1250 1200 / 1200 928.333 / 928.333 Output Total 2350 / 2850 1900 / 1900 3400 / 3400 1950 / 1950 Balance -1240 / -1740 -890 / -650 -2200 / -2200 -1021.667 / -1021.667 Weight 75.75 kg 76.702 kg 76.022 kg 75.795 kg Results Data Completed and Pending Labs on day of discharge: Labs from last 24 hours 03/26/25 03/26/25 03/26/25 10:11 05:30 05:04 WBC 4.4 L RBC 3.41 L Hgb 9.6 L Hct 29.5 L MCV 86.5 MCH 28.2 MCHC 32.5 RDW 16.0 Plt Count 215 MPV 10.1 Neut % (Auto) 63.1 Lymph % (Auto) 27.1 [place] % (Auto) 5.5 Eos % (Auto) 3.4 Baso % (Auto) 0.7 Neut # (Auto) 2.7 Lymph # (Auto) 1.2 [place] # (Auto) 0.2 Eos # (Auto) 0.2 Baso # (Auto) 0.0 Sodium 133 L Potassium 3.9 Chloride 103 Carbon Dioxide 23 Anion Gap 10.9 BUN 32 H Creatinine 2.00 H Estimated Creat Clear 38 Estimated GFR 26 L Est GFR ( Amer) 31 L Glucose 249 H POC Glucose 190 H 267 H Calcium 9.0 Magnesium 1.6 D Total Bilirubin 0.3 AST 21 ALT 14 Alkaline Phosphatase 54 Total Protein 6.1 L Albumin 3.7 Globulin 2.4 Albumin/Globulin Ratio 1.5 03/25/25 16:05 WBC RBC Hgb Hct MCV MCH MCHC RDW Plt Count MPV Neut % (Auto) Lymph % (Auto) [place] % (Auto) Eos % (Auto) Baso % (Auto) Neut # (Auto) Lymph # (Auto) [place] # (Auto) Eos # (Auto) Baso # (Auto) Sodium Potassium Chloride Carbon Dioxide Anion Gap BUN Creatinine Estimated Creat Clear Estimated GFR Est GFR ( Amer) Glucose POC Glucose 290 H Calcium Magnesium Total Bilirubin AST ALT Alkaline Phosphatase Total Protein Albumin Globulin Albumin/Globulin Ratio DS: Diagnosis Discharge Diagnosis (1) Acute on chronic combined systolic (congestive) and diastolic (congestive) heart failure: Status: Acute Code(s): I50.43 - Acute on chronic combined systolic (congestive) and diastolic (congestive) heart failure (2) Non-ST elevation [place] (NSTEMI): Status: Acute Code(s): I21.4 - Non-ST elevation (NSTEMI) myocardial infarction (3) Uncontrolled diabetes mellitus: Status: Acute Qualifiers: Diabetes mellitus type: type 1 Glycemic state: with hyperglycemia Qualified Code(s): E10.65 - Type 1 diabetes mellitus with hyperglycemia (4) CKD (chronic kidney disease): Status: Acute Code(s): N18.9 - Chronic kidney disease, unspecified Qualifiers: Chronic kidney disease stage: stage 4 (GFR 15-29) Qualified Code(s): N18.4 - Chronic kidney disease, stage 4 (severe) (5) HTN (hypertension): Status: Acute Code(s): I10 - Essential (primary) hypertension Qualifiers: Hypertension type: essential hypertension Qualified Code(s): I10 - Essential (primary) hypertension (6) History of stroke: Status: Acute Code(s): Z86.73 - Personal history of transient ischemic attack (TIA), and cerebral infarction without residual deficits (7) HLD (hyperlipidemia): Status: Acute Code(s): E78.5 - Hyperlipidemia, unspecified Qualifiers: Hyperlipidemia type: mixed hyperlipidemia Qualified Code(s): E78.2 - Mixed hyperlipidemia Meds Home Medications and Allergies Home Medications ?Medication ?Instructions ?Recorded ?Confirmed ?Type 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,mortgage underwriter,cont #1 ea 06/01/24 03/22/25 Rx (Dexcom G7 Slasher Sawyer) clopidogrel 75 mg tablet (Plavix) 75 mg PO DAILY #90 t abs 06/03/24 03/22/25 Rx lancets 28 gauge #100 ea 06/03/24 03/22/25 Hi story insulin pump cartridge,auto #1 ea 09/10/24 03/22/25 Hi [employer]el dose,BT,G6/G7 with controller subcutaneous (Omnipod 5 G6-G7 Intro Kit(Gen 5) subcutaneous cartridge and controller) rosuvastatin 10 mg tablet (Crestor) 10 mg PO DAILY #30 tabs 12/08/24 03/22/25 Rx inclisiran 284 mg/1.5 mL 284 mg (1.5 mL) SQ [id number] 2 12/14/24 03/22/25 Rx subcutaneous syringe (Leqvio) doses #1.5 mL 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 sensor (Dexcom G7 #9 ea 12/25/24 5 Rx Sensor device) insulin lispro 100 unit/mL 1 unit SQ DIRECTED 03/0203/22/25 History subcutaneous solution (Admelog U-100 Insulin lispro) ondansetron 4 mg disintegrating 4 mg PO Q8HP PRN nause a and 03/02/25 03/22/25 History tablet vomiting sertraline 50 mg tablet 50 mg PO DAILY 03/02/2503/06 History metoprolol succinate 25 mg 25 mg PO DAILY 30 days #30 tabs 03/04/25 03/22/25 Rx tablet,extended release 24 hr insulin pump cart,auto,BT,G6/7 #5 ea 03/11/25 03/22/25 Rx (Omnipod 5 G6-G7 Pods (Gen 5) subcutaneous cartridge) fluticasone propionate 50 1 spray intranasal DAILY #16 grams 03/18/25 03/22/25 Rx mcg/actuation nasal spray,suspension (Flonase Allergy Relief) omeprazole 20 mg capsule,delayed 20 mg PO DAILY 03/22/25 History release bumetanide 1 mg tablet 1 mg PO BIDL 30 days #60 tab s 03/26/25 Rx fluticasone 250 mcg-salmeterol 50 1 inh inhalation BID RT #60 ea 03/26/25 Rx mcg/dose blistr powdr for inhalation gabapentin 600 mg tablet 300 mg (1/2 x 600 mg) PO TID 30 03/26/25 03/23/25 Rx days #0 tabs hydralazine 25 mg tablet 25 mg PO TID 30 days #90 tab s 03/26/25 Rx insulin glargine 100 unit/mL (3 20 unit (0.2 mL) SQ HS #15 mL 03/26/25 Rx mL) subcutaneous pen (Lantus Solostar U-100 Insulin) isosorbide dinitrate 20 mg tablet 20 mg PO TID 30 days #90 tabs 03/26/25 Rx spironolactone 25 mg tablet 25 mg PO DAILY 30 days #30 tabs 03/26/25 Rx New Prescriptions to Start Prescriptions: bumetanide Reji Temple fluticasone propion-salmeterol [place],Reji hydralazine Reji Temple insulin glargine [Lantus Solostar U-100 Insulin] Reji Temple isosorbide dinitrate Maverick,Reji spironolactone Reji Temple Allergies Allergy/AdvReac Type Severity Reaction Status Date / Time atorvastatin Allergy Severe lowers Verified 03/18/25 13:29 blood pressure aspirin (ASPIRIN) Allergy Intermediate I-HIVES Verified 03/18/25 13:29 latex (LATEX) Allergy Unknown RASH, HIVES Verified 03/18/25 13:29 midodrine AdvReac Severe Unknown Verified 03/18/25 13:29 allergy reaction Discharge Plan Disposition Patient Disposition: Home, Self-Care Condition: Fair Discharge Order Discharge Orders: Discharge Order (Routine); Ordered 03/26/25 Ordered By: Reji Temple Follow up Plan Follow up with: Lydia Nash PT [Physical Therapist, Rehab Therapy] - 03/30/25 2:00 pm Lima Shannon APRN [Primary Care Provider, Family Practice] - 03/31/25 11:00 am Noé Kinsey MD [Referring, Nephrology] - 1 week Referral Note: CKD Prescriptions/Medication Reconciliation: New fluticasone propion-salmeterol 250-50 mcg/dose Blister With Device 1 inh inhalation BIDRT Qty: 60 0RF bumetanide 1 mg Tablet 1 mg PO BIDL 30 Days Qty: 60 0RF hydralazine 25 mg Tablet 25 mg PO TID 30 Days Qty: 90 0RF spironolactone 25 mg Tablet 25 mg PO DAILY 30 Days Qty: 30 0RF isosorbide dinitrate 20 mg Tablet 20 mg PO TID 30 Days Qty: 90 0RF insulin glargine [Lantus Solostar U-100 Insulin] 100 unit/mL (3 mL) Insulin Pen 20 unit SQ HS Qty: 15 0RF Continued omeprazole 20 mg capsule,delayed release(DR/EC) 20 mg PO DAILY fluticasone propionate [Flonase Allergy Relief] 50 mcg/actuation spray,suspen salena 1 spray intranasal DAILY Qty: 16 0RF Rx Instructions: administer into each nostril (DME) Dexcom G7 Slasher Sawyer Misc See Rx Instructions .Route Qty: 1 6RF Rx Instructions: As directed (DME) lancets 28 gauge misc See Rx Instructions .ROUTE .MEDSUPPLY Qty: 100 Rx Instructions: As directed clopidogrel [Plavix] 75 mg tablet 75 mg PO DAILY Qty: 90 3RF (DME) Omnipod 5 G6-G7 Intro Kt(Gen5) Cartridge See Rx Instructions .ROUTE .MEDSUPPLY Qty: 1 Rx Instructions: As directed Leqvio 284 mg/1.5 mL syringe 284 mg SQ [id number] Qty: 1.5 2RF rosuvastatin [Crestor] 10 mg tablet 10 mg PO DAILY Qty: 30 5RF (DME) Dexcom G7 Sensor Device See Rx Instructions .ROUTE .COMPLEX Qty: 9 0RF Dose Instruction: APPLY AND WEAR 1 SENSOR FOR 10 DAYS AND THEN CHANGE Rx Instructions: APPLY AND WEAR 1 SENSOR FOR 10 DAYS AND THEN CHANGE (DME) Omnipod 5 G6-G7 Pods (Gen 5) Cartridge See Rx Instructions .ROUTE .COMPLEX Qty: 5 6RF Dose Instruction: USE DIRECTED Rx Instructions: USE DIRECTED insulin lispro [Admelog U-100 Insulin lispro] 100 unit/mL solution 1 unit SQ DIRECTED Rx Instructions: Max dose 100 units daily, to use in the OmniPod ondansetron 4 mg tablet,disintegrating 4 mg PO Q8HP PRN (Reason: nausea and vomiting) sertraline 50 mg tablet 50 mg PO DAILY metoprolol succinate 25 mg Tablet Extended Release 24 Hr 25 mg PO DAILY 30 Days Qty: 30 0RF Changed gabapentin 600 mg tablet 300 mg PO TID 30 Days Qty: 0 0RF Discontinued torsemide 5 mg tablet 5 mg PO DAILY isosorbide mononitrate 30 mg Tablet Extended Release 24 Hr 30 mg PO DAILY 30 Days Qty: 30 0RF Other Ambulatory Orders: Rehab Eval, OP (Routine) Timeframe: 1 Month Facility: [facility] - Location: Physical Therapy Ordered By: Reji Temple Problem Reconciliation Problems Reviewed?: Yes Patient Discharge Instructions Patient Instructions: DI for Heart Failure, Stop Light Heart Failure Print Language: Nauruan Providers Primary Care Provider: Lima Shannon Provider: Navin Freire Attending Provider: Navin Freire
--- NOTE | 2025-03-26 14:42 | SW/DCPLANNER ---
Patient will discharge home today and is now agreeable to return to [facility] outpatient PT services (03/30). Patient already has a rolling walker at home and expressed an interest in a shower chair. I did inform patient that shower chair is never covered under insurance and patient voiced that she will reach out to her family and friends. Patient will discharge home this afternoon.
--- NOTE | 2025-03-29 10:07 | SW/DCPLANNER ---
Spoke with patient on the phone. Patient stated that she is doing okay but she feels that her fluid is coming back on her. I suggested that she sees if she cant get in to her PCP joel. Patient stated that she is aware of her upcoming appointment. Patient stated that she was able to get some of her medicine picked up and that the other they had to order and will be in today. Patient stated that she has no concerns or questions at this time. Sergio Mehta
[2025-03-30 15:24] LABS: POC Glucose,Bedside 262 gm/dL (70-110)
== END 2025-03-26 15:40 | disposition home or self-care (01) | DRG 291 ==
LOC: ER 18:32 → 2ND 19:54
PROVIDERS: Nurse Practitioner; Nurse Practitioner Acute Care; Student in an Organized Health Care Education/Training Program; Admitting Provider Internal Medicine Adolescent Medicine; Emergency Provider Student in an Organized Health Care Education/Training Program; PCP Family Medicine; Visit Provider Internal Medicine Adolescent Medicine
DX: I13.0 Hypertensive heart and chronic kidney disease with heart failure and stage 1 through stage 4 chronic kidney disease, or unspecified chronic kidney disease (principal); I50.43 Acute on chronic combined systolic (congestive) and diastolic (congestive) heart failure; N18.4 Chronic kidney disease, stage 4 (severe); N17.9 Acute kidney failure, unspecified; I5A Non-ischemic myocardial injury (non-traumatic); E10.65 Type 1 diabetes mellitus with hyperglycemia; E10.22 Type 1 diabetes mellitus with diabetic chronic kidney disease; I25.10 Atherosclerotic heart disease of native coronary artery without angina pectoris; E78.2 Mixed hyperlipidemia; Z95.1 Presence of aortocoronary bypass graft; Z86.73 Personal history of transient ischemic attack (TIA), and cerebral infarction without residual deficits; Z88.6 Allergy status to analgesic agent; Z91.040 Latex allergy status; Z88.8 Allergy status to other drugs, medicaments and biological substances; Z79.02 Long term (current) use of antithrombotics/antiplatelets; Z79.4 Long term (current) use of insulin; Z79.899 Other long term (current) drug therapy
CPT/HCPCS: 0223U; 36415; 71045; 71250; 80048; 80053; 81001; 82803; 82962; 83690; 83735; 83880; 84145; 84484; 85025; 85378; 85610; 85730; 86140; 87636; 93005; 93308; 93970; 94640; 94761; 97162; 97165; 97530; 97535; 99285; J1100; J1644; J1650; J1938; J1939; J2470; J3475

== ENCOUNTER 2025-04-08 10:44 | Outpatient (CLI) | payer OTHER, SELFPAY ==
[2025-04-08 20:40] LABS: Anion Gap 15.2 mEq/L (5-15); Blood Urea Nitrogen 43 mg/dl (7-17); Calcium 9.2 mg/dl (8.4-10.2); Carbon Dioxide 24 mmol/L (22.0-30.0); Chloride 94 mmol/L (98-107); Creatinine,Serum 2.10 mg/dl (0.52-1.04); Estimated Glomerular Filt Rate 24 ml/min (>60); GFR (African American) 30 ML/MIN (>60); Potassium 4.2 mmoL/L (3.5-5.1); Sodium 129 mmol/L (136-145)
[2025-04-08 21:05] LABS: Glucose 411 mg/dl (74-100)
--- OUTSIDE RECORDS SUMMARY | 2025-04-11 10:47 | XMS_ITS | Clinical Summary ---
Author Organization [facility] Address [address] [place] [address] Phone Care Team Providers Care Public Transportation Inspector Name Role Phone Mario Walls MD Unavailable [phone] Allergies Active Allergy Reactions Criticality Noted [...] U-100 0.3 mL 31 gauge x 1564 [facility] SyringeIndicatio ns:Dyslipidemia associated with type 2 diabetes mellitus (HCC) Use as directed to inject insulin. E11.65 100 Each 12/15/19 23 Active Insulin Alkol, Disposable, (NICOLASA PEN NEEDLE) 32 gauge x 532 [facility] NeedleIndication s:Dyslipidemia associated with type 2 diabetes mellitus (HCC) Use with insulin 4 times daily 400 Each 1 12/18/19 23 Active Blood-Glucose Meter (FREESTYLE LITE METER) [facility] KitIndications:T ype 2 diabetes mellitus with stage 3a chronic kidney disease, with long-term current use of insulin ([facility]) 1 Kit by [facility].(Non-Drug; Combo Route) route 3 times daily. 1 Kit 05/29/19 24 Active Blood Sugar Diagnostic (FREESTYLE TEST) [facility] StripIndications :Type 2 diabetes mellitus with stage 3a chronic kidney disease, with long-term current use of insulin ([facility]) 1 Strip by [facility].(Non-Drug; Combo Route) route 3 times daily. 100 Each 11 05/29/19 24 Active Lancets [facility] MiscIndications: Type 2 diabetes mellitus with stage 3a chronic kidney disease, with long-term current use of insulin ([facility]) check FSBS 3 times a [...] 4 07/01/19 24 Active Blood Pressure Monitor [facility] [place] KitIndications:B lood pressure instability,Orth ostatic hypotension,Esse ntial hypertension Check and record blood pressure daily and also prn with any feelings of lightheadedness and syncope 1 Kit 07/11/19 24 Active Blood-Glucose Sensor (DEXCOM G7 SENSOR) [facility] DeviceIndication s:Dyslipidemia associated with type 2 diabetes mellitus (HCC) 1 Each by [facility].(Non-Drug; Combo Route) route every [...] UTI 11/09/2022 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 Referral Given for [facility]. 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 Checking level Hyperuricemia 09/25/2021 History of CVA (cerebrovascular accident) 2020 Assessment & Plan (09/27/2021 8:01 PM EDT): Sees neurology. No residual deficits Coronary artery disease invo lving [place] coronary artery of [place] heart without angina pectoris 04/03/2021 Type 2 [...] 02/13/2016 N/A Surgeon: Jailyn Vieira MD; Location: [facility] ENDOSCOPY; Service: Endoscopy COLONOSCOPY CARDIAC SURGERY triple bypass UPPER GASTROINTESTINAL ENDOSCOPY 05/16/2021 N/A ESOPHAGOGASTRODUODENOS COPY with biopsy and savary dilation; Surgeon: Cleveland Thomas DO; Location: ED ENDOSCOPY; Service: Endoscopy 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 Date Comments Diabetes mellitus (HCC) Renal disorder Multi-organ failure with liver failure Liver failure (HCC) reports is o n transplant list at [facility] Hepatitis B Motion sickness Pneumonia [place] (myocardial infarction) (HCC) Blood circulation, collateral Heartburn Stroke (HCC) 2019, 2019, 2020 , 2021 Post-operative nausea and vomiting extreme N/V Coronary artery disease invo lving [place] coronary artery of [place] heart without angina pectoris 04/03/2021 Hyperglycemia due [...] Date Recorded PHQ-2 Total Score 6 05/01/2023 [facility] [place] of Occupat ional Health - Occupational Stress [...] ORDERABLES Final Resu lt Performing Organization Address [facility]/ZIP Co de Phone Number SEP OFFICE * [...] 10:3 0 AM EDT Impressions [facility] - 02/14/2016 10:53 AM EDT Otherwise [...] GI PROCEDURE ORDERABLES Final Result [facility] [address] [place] [address] from Last 3 Months or Most Recently Relevant to Health Maintenance Insurance [facility] [address] [facility] [address] [employer] [place] [address] Advance Directives For more information, please contact: [phone] * Full Code (Latest Code Status on [...] 4:05 PM 04/14/2021 5:40 PM Care Teams Public Transportation Inspector Relationship Specialty Start Date End Date Mario Walls MD [address] [facility] [address] [place] [address] Internal Medicine-Cardiovascular Disease 06/18/23
--- OUTSIDE RECORDS SUMMARY | 2025-04-11 10:47 | XMS_ITS | Encounter Summary ---
Author Organization [facility] Address [address] [place] [address] Care Team Providers Care Network Operations Analyst Name Role Phone Reji Velazquez DO Primary Care Provider [phone] Abhijeet Espinoza MD Unavailable [phone] Encounter Details Date Type Department Care Team (Latest Contact Info) Description 03/26/2025 Travel Social History Tobacco Use Types Packs/Day Years Used Date Smoking Tobacco: Never Alcohol Use Standard Drinks/Week Comments Never 0 (1 standard drink = 0.6 oz pur e alcohol) Comments Unknown Sex and Gender Information Value Date Recorded Sex Assigned at Not on file Legal Sex Female 7:53 PM EDT Gender Identity Not on file Sexual Orientation Not on file documented as of this encounter Plan of Treatment Upcoming Encounters Date Type Department Care Team (Late st Contact Info) Description 05/28/2025 11:00 AM EST Office Visit [facility] [address] [place] [address] Olivia Mcneal, VETERANS SERVICE OFFICER [address] [facility] [address] [place] [address] documented as of this encounter Visit Diagnoses Not on filedocumented in this encounter Care Teams Network Operations Analyst Relationship Specialty Start Date End Date Reji Velazquez DO [address] [place] [address] PCP - General 07/28/24 Abhijeet Espinoza MD [address] [place] [address] 07/28/24 documented as of this encounter
--- OUTSIDE RECORDS SUMMARY | 2025-04-11 10:47 | XMS_ITS | Clinical Summary ---
Author Organization [facility] Address [address] [place] [address] Care Team Providers Care Gm/Svp Global Publisher Business Name Role Phone Reji Velazquez DO Primary Care Provider Abhijeet Espinoza MD Unavailable [phone] Allergies Active Allergy Reactions Criticality Noted Date Comments Aspirin Hives Medium 07/28/2024 Atorvastatin Other - please docum ent in the comment field Low 07/28/2024 Lowers blood pressure Heparin Other - please docum ent in the comment field Low 02/02/2020 HIT Ab and RITESH resulted POSITIVE 02/02/2020. Collected 02/01/2020 Latex Hives,Rash Medium 07/28/2024 Meclizine Hives Medium 03/23/2025 Midodrine Rash Medium 10/09/2022 Medications gabapentin (Neurontin) 800 MG tablet Take [...] CHLORIDE PO Take by mouth. Activ e Encounters Date Type Department Care Team Description 03/26/2025 Travel from Last 3 Months Immunizations Immunization Administration Dates Next Due Hep A, Adult 03/18/2018 Family History 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 Relation Name Comments [...] Description 05/28/2025 11:00 AM EST Office Visit [facility] [address] [place] [address] Olivia Mcneal, PHY THERAPIST [address] [address] Health Maintenance Due Date Last Done Comments [facility]-Depression Screening 1970 [facility]-Infant/Child/Adol SDOH Screenings 1970 [facility]- SDOH Screenings 1987 [facility]-Adult SDOH Screenings 1987 [facility]-Hepatitis B Vaccines (1 of 3 - 19+ 3-dose series) 1988 [facility]-Pap Smear 1990 [facility]-Cervical Cancer Screening 1999 [facility]-HPV/Cotest 1999 CT Colonography 2014 Colonoscopy 2014 FIT-DNA 2014 FIT 2014 FOBT 2014 Sigmoidoscopy 2014 [facility]-Colorectal Cancer Screening 2014 [facility]-Pneumococcal Vaccine: 50 + Years (1 of 1 - PCV) 2019 [facility]-Zoster Vaccines (1 of 2) 2019 [facility]-Breast Cancer Screening 01/27/2021 01/27/2019 [id number] Vaccine (1 - 20 25- season) 2025 [facility]-Influenza Vaccine (#1) 2025 [facility]-DTaP,Tdap,and Td Vaccine s (2 - Td or Tdap) 02/20/2035 02/20/2025 [facility]-HIV Screening Completed 10/07/2015 [facility]-Hepatitis C Screening [...] assistance of CAD and tomosynthesis. Dictated By: Fernandez Frazier M.D. Page 1 of 2 Patient Name:Janay Ellis : 1970 Age: 48 Gender: femaleDate of Service: 01/27/2019 eferring Phy:Thelma ValerioAccount: [id number] Verified By: Fernandez Frazier M.D. on 01/28/2019 at 03:52:08 PM [...] assistance of CAD and tomosynthesis. Read By: FERNANDEZ FRAZIER M.D. Signed By: FERNANDEZ FRAZIER M.D. on 01/28/2019 at 15:57:12 Verified by: FERNANDEZ FRAZIER M.D. on Jan 28 2019 3:57P Transcribed by: PSCB on Jan 28 2019 3:57P Dictated by: FERNANDEZ FRAZIER M.D. on Jan 28 2019 3:57P Patient Name:Janay Ellis : 1970 Age: 48 Gender: femaleDate of Service: 01/27/2019 eferring Phy:Thelma ValerioAccount: [id number] Thelma Valerio , FINAL REPORT PROCEDURE: Tomosynthesis [...] or architectural distortion are evident. Procedure Note Fernandez Frazier - 09/11/2020 REQUESTING PHYSICIAN: THELMA VALERIO [...] assistance of CAD and tomosynthesis. Read By: FERNANDEZ FRAZIER M.D. Signed By: FERNANDEZ FRAZIER M.D. on 01/28/2019 at 15:57:12 Verified by: FERNANDEZ FRAZIER M.D. on Jan 28 2019 3:57P Transcribed by: [facility] on Jan 28 2019 3:57P Dictated by: FERNANDEZ FRAZIER M.D. on Jan 28 2019 3:57P Patient Name:Janay Ellis : 1970 Age: 48 Gender: femaleDate of Service:01/27/2019 eferring Phy:Thelma ValerioAccount: [id number] Thelma Valerio , FINAL REPORT PROCEDURE: Tomosynthesis [...] assistance of CAD and tomosynthesis. Dictated By: Fernandez Frazier M.D. Page 1 of 2 Patient Name:Janay Ellis : 1970 Age: 48 Gender: femaleDate of Service:01/27/2019 eferring Phy:Thelma ValerioAccount: [id number] Verified By: Fernandez Frazier M.D. on 01/28/2019 at 03:52:08 PM Page 2 of 2 Historical Provider IMG BI PROCEDURES Final Resu lt * HIV 1 & 2 Antibody/Antigen Screen (10/07/2015 5:46 PM EDT) HIV 1 Result NONREACTIVE Screening for HIV 1 and 2 antibodies is NONREACTIVE. No confirmatory testing is required. SUNQUEST 10/07/2015 5:46 PM EDT 10/07/2015 6:13 PM EDT Taylor Amin MD LAB BLOOD ORDERABLES Luciana cabral Result SUNOKSANA * Acute Hepatitis Panel (10/07/2015 5:46 PM EDT) Hepatitis B Surf Antigen BEING REPEATED TO CONFIRM SUNQUEST Hepatitis C Antibody NEGATIVE Reference Range: Negative SUNQUEST Hepatitis A Antibody IgM NEGATIVE Reference Value: Negative SUNQUEST External Hepatitis B Core IgM (HBCM) POSITIVE Reference Value: Negative SUNQUEST 10/07/2015 5:46 PM EDT 10/07/2015 6:13 PM EDT Taylor Amin MD LAB BLOOD ORDERABLES Luciana misha Result SUNQUEST from Last 3 Months or Most Recently Relevant to Health Maintenance Insurance [employer] MEDICAID Care Teams Gm/Svp Global Publisher Business Relationship Specialty Start Date End Date Reji Velazquez DO [address] [place] [address] PCP - General 07/28/24 Abhijeet Espinoza MD [address] [place] [address] 07/28/24
== END 2025-04-08 23:59 | disposition home or self-care (01) ==
LOC: LAB.DROPOF 04-11 10:44
PROVIDERS: PCP Family Medicine; Visit Provider Student in an Organized Health Care Education/Training Program
DX: N18.4 Chronic kidney disease, stage 4 (severe) (principal)
CPT/HCPCS: 80048; 82043; 82570

== ENCOUNTER 2025-04-24 13:21 | Emergency (ER) | payer OTHER, SELFPAY ==
[2025-04-24 13:24] VITALS: BP 178/105; PULSE 88; RESP 16; TEMP 36.8; O2SAT 98; BMI 25.7
[2025-04-24 13:30] VITALS: BP 178/105; PULSE 88; O2SAT 100
--- NOTE | 2025-04-24 13:32 | CT_ITS ---
PROCEDURE INFORMATION: Exam: CT Head Without Contrast Exam date and time: 04/24/2025 3:11 PM Age: 54 years old Clinical indication: Visual disturbance; Additional info: Vision loss TECHNIQUE: Imaging protocol: Computed tomography of the head without contrast. Radiation optimization: All CT scans at this facility use at least one of these dose optimization techniques: automated exposure control; mA and/or kV adjustment per patient size (includes targeted exams where dose is matched to clinical indication); or iterative reconstruction. COMPARISON: 1. CT HEAD/BRAIN WO CON 02/18/2025 5:[address] HEAD/BRAIN WO CON 03/03/2025 10:56 AM FINDINGS: Brain: [place]-white matter differentiation is maintained. No intraparenchymal hemorrhage. No subdural or epidural hematoma or fluid collection. No large mass or mass effect. Subtle area of slight decreased density is present along the inferior margin of the right basal ganglia. This appears similar compared to the prior CT scan from February 18, 2025. Subtle area of decreased density is present within the left central jose luis which may correspond to artifact. This also appears similar compared to the prior CT scan. Areas of mild decreased density within the left central aspect of the midbrain appears similar. Findings may correspond to artifact or area of chronic microvascular ischemic change. Mild decreased density along the posterior limb of the internal capsule on the right and left and within the periventricular deep white matter appears unchanged. Findings more compatible with mild chronic microvascular ischemic change. Cerebral ventricles: Ventricular and sulcal pattern is within normal limits. The ventricles are midline in position. Paranasal sinuses: Mild mucosal thickening and small air-fluid level is present within the right sphenoid air cell. Findings compatible with mild sphenoid sinusitis. Mastoid air cells: Mastoid air cells are well-aerated. Orbital cavities: Globes appear symmetric. There is otherwise no evidence of a new large territorial infarct. Bones: Calvarium is intact. Soft tissues: Soft tissues are unremarkable as visualized. Vasculature: No hyperdense MCA sign. Minimal atherosclerotic plaque along the intracranial segment of the right and left vertebral artery. Dense peripheral calcified plaque along the intracranial segment of the right and left internal carotid artery. IMPRESSION: 1. No definitive acute findings within the brain. No large mass or mass effect. No intraparenchymal hemorrhage. No subdural or epidural hematoma or fluid collection. No evidence of a new large territorial infarct. Areas of decreased density along the inferior margin of the right basal ganglia and within the brainstem appears similar compared to prior CT scan from February 18, 2025. A portion of this appearance may correspond to artifact. Follow-up MRI of the brain could be considered as clinically indicated. 2. Mild sphenoid sinusitis.
--- OUTSIDE RECORDS SUMMARY | 2025-04-24 13:37 | XMS_ITS | Clinical Summary ---
Author Organization [facility] Address [address] [place] [address] Phone Care Team Providers Care Program Manager Slp Name Role Phone Mario Walls MD Unavailable [phone] Allergies Active Allergy Reactions Criticality Noted [...] 0.3 mL 31 gauge x 1564 [facility] SyringeIndicatio ns:Dyslipidemia associated with type 2 diabetes mellitus (HCC) Use as directed to inject insulin. E11.65 100 Each 12/15/19 23 Active Insulin [place], Disposable, (NICOLASA PEN NEEDLE) 32 gauge x 532 [facility] NeedleIndication s:Dyslipidemia associated with type 2 diabetes mellitus (HCC) Use with insulin 4 times daily 400 Each 1 12/18/19 23 Active Blood-Glucose Meter (FREESTYLE LITE METER) [facility] KitIndications:T ype 2 diabetes mellitus with stage 3a chronic kidney disease, with long-term current use of insulin ([facility]) 1 Kit by [facility].(Non-Drug; Combo Route) route 3 times daily. 1 Kit 05/29/19 24 Active Blood Sugar Diagnostic (FREESTYLE TEST) [facility] StripIndications :Type 2 diabetes mellitus with stage 3a chronic kidney disease, with long-term current use of insulin ([facility]) 1 Strip by [facility].(Non-Drug; Combo Route) route 3 times daily. 100 Each 11 05/29/19 24 Active Lancets [facility] MiscIndications: Type 2 diabetes mellitus with stage 3a chronic kidney disease, with long-term current use of insulin ([facility]) check FSBS 3 times a day [...] 07/01/19 24 Active Blood Pressure Monitor [facility] KitIndications:B lood pressure instability,Orth ostatic hypotension,Esse ntial hypertension Check and record blood pressure daily and also prn with any feelings of lightheadedness and syncope 1 Kit 07/11/19 24 Active Blood-Glucose Sensor (DEXCOM G7 SENSOR) [facility] DeviceIndication s:Dyslipidemia associated with type 2 diabetes mellitus (HCC) 1 Each by [facility].(Non-Drug; Combo Route) route every [...] UTI 11/09/2022 Coronary artery disease invo lving [place] coronary artery of [place] heart with angina pectoris 10/02/2022 Orthostatic hypotension [...] Glomerulosclerosis ) Plan- -Checking MRI with IV [id number]-[id number]-tl further evaluate lesions seen on both kidneys. 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 Referral Given for [facility]. 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 Checking level Hyperuricemia 09/25/2021 History of CVA (cerebrovascular accident) 2020 Assessment & Plan (09/27/2021 8:01 PM EDT): Sees neurology. No residual deficits Coronary artery disease invo lving [place] coronary artery of [place] heart without angina pectoris 04/03/2021 Type 2 [...] 02/13/2016 N/A Surgeon: Jailyn Vieira MD; Location: [facility] ENDOSCOPY; Service: Endoscopy COLONOSCOPY CARDIAC SURGERY triple bypass UPPER GASTROINTESTINAL ENDOSCOPY 05/16/2021 N/A ESOPHAGOGASTRODUODENOS COPY with biopsy and savary dilation; Surgeon: Cleveland Thomas DO; Location: [facility] ENDOSCOPY; Service: Endoscopy 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 Date Comments Diabetes mellitus (HCC) Renal disorder Multi-organ failure with liver failure Liver failure (HCC) reports is o n [facility] at [facility] Hepatitis B Motion sickness Pneumonia [place] (myocardial infarction) (HCC) Blood circulation, collateral Heartburn Stroke (HCC) 2019, 2019, 2020 , 2021 Post-operative nausea and vomiting extreme N/V Coronary artery disease invo lving [place] coronary artery of [place] heart without angina pectoris 04/03/2021 Hyperglycemia due [...] Date Recorded PHQ-2 Total Score 6 05/01/2023 [facility] [place] of Occupat ional Health - Occupational Stress [...] ORDERABLES Final Resu lt Performing Organization Address [facility]/ZIP Co de Phone Number SEP OFFICE * [...] EDT) 02/14/2016 10:3 0 AM EDT Impressions [facility] - 02/14/2016 10:53 AM EDT [...] Vieira MD GI PROCEDURE ORDERABLES Final Result [facility] [address] [place] [address] from Last 3 Months or Most Recently Relevant to Health Maintenance Insurance [facility] [address] [facility] [address] [employer] [place] [address] Advance Directives For more information, please contact: [phone] * Full Code (Latest Code Status on [...] 4:05 PM 04/14/2021 5:40 PM Care Teams Program Manager Slp Relationship Specialty Start Date End Date Mario Walls MD [address] [facility] [address] [place] [address] Internal Medicine-Cardiovascular Disease 06/18/23
--- OUTSIDE RECORDS SUMMARY | 2025-04-24 13:38 | XMS_ITS | Clinical Summary ---
Author Organization [facility] Address [address] [place] [address] Care Team Providers Care Pole Tester Name Role Phone Reji Velazquez DO Primary Care Provider [phone] Abhijeet Espinoza MD Unavailable [phone] Allergies Active Allergy Reactions Criticality Noted Date [...] Description 05/28/2025 11:00 AM EST Office Visit [facility] [address] [address] Olivia Mcneal, PRODUCTION SORTER [address] [address] Health Maintenance Due Date Last [...] 2) 2019 [facility]-Breast Cancer Screening 01/27/2021 01/27/2019 [id number] Vaccine (1 - 20 25- season) 2025 [facility]-Influenza Vaccine (#1) 2025 [facility]-DTaP,Tdap,and Td Vaccine s (2 - Td or Tdap) 02/20/2035 02/20/2025 [facility]-HIV Screening Completed 10/07/2015 [facility]-Hepatitis C Screening Completed 10/07/2015 [facility]-Hepatitis A Vaccines Aged Out 03/18/2018 No longer eligible based on patient's age to complete this topic HPV Vaccines (No Doses Required) Completed [facility]-HIB Vaccines Aged Out No longer e [...] femaleDate of Service: 01/27/2019 eferring Phy:Thelma ValerioAccount: [id number] Verified By: Fernandez Frazier M.D. on 01/28/2019 [...] femaleDate of Service: 01/27/2019 eferring Phy:Thelma ValerioAccount: [id number] Thelma Valerio , FINAL REPORT PROCEDURE: Tomosynthesis [...] Jan 28 2019 3:57P Transcribed by: [facility] on Jan 28 2019 3:57P Dictated by: FERNANDEZ FRAZIER M.D. on Jan 28 2019 3:57P Patient Name:Janay Ellis : 1970 Age: 48 Gender: femaleDate of Service:01/27/2019 eferring Phy:Thelma ValerioAccount: [id number] Thelma Marteers , FINAL REPORT PROCEDURE: Tomosynthesis [...] 48 Gender: femaleDate of Service:01/27/2019 eferring Phy:Thelma Murali ValerioAccount: [id number] Verified By: Fernandez Frazier M.D. on 01/28/2019 [...] MD LAB BLOOD ORDERABLES Luciana cabral Result SUNQUEST from Last 3 Months or Most Recently Relevant to Health Maintenance Insurance [employer] [facility] MEDICAID Care Teams Pole Tester Relationship Specialty Start Date End Date Reji Velazquez DO [address] [place] [address] PCP - General 07/28/24 Abhijeet Espinoza MD [address] [place] [address] 07/28/24
--- OUTSIDE RECORDS SUMMARY | 2025-04-24 13:38 | XMS_ITS | Encounter Summary ---
Author Organization [facility] Address [address] [place] [address] Care Team Providers Care Logistics Operations Director Name Role Phone Reji Velazquez DO Primary Care Provider [phone] Abhijeet Espinoza MD Unavailable [phone] Encounter Details Date Type Department Care Team [...] Description 05/28/2025 11:00 AM EST Office Visit [facility] [address] [place] [address] Olivia Mcneal, GOLF CADDY [address] [address] documented as of this encounter Visit Diagnoses Not on filedocumented in this encounter Care Teams Logistics Operations Director Relationship Specialty Start Date End Date Reji Velazquez DO [address] [place] [address] PCP - General 07/28/24 Abhijeet Espinoza MD [address] [place] [address] 07/28/24 documented as of this encounter
--- NOTE | 2025-04-24 13:39 | ED_ITS ---
<Statement entered by Christopher Rosario JR, DO - 04/24/25 15:27> I was consulted by the VALENCIA, and we discussed the complexity of problems being addressed. I approved the treatment and management plan for this patient's care in the emergency department, thus performing a substantial portion of the medical decision making. Christopher Rosario DO Discharge Plan Disposition Chief Complaint: Eye Problems Prescriptions Prescriptions: No Action fluticasone propionate [Flonase Allergy Relief] 50 mcg/actuation spray,suspension 1 spray intranasal DAILY Qty: 16 0RF Rx Instructions: administer into each nostril (DME) Dexcom G7 Sports Team Manager Misc See Rx Instructions .Route Qty: 1 6RF Rx Instructions: As directed (DME) lancets 28 gauge misc See Rx Instructions .ROUTE .MEDSUPPLY Qty: 100 Rx Instructions: As directed clopidogrel [Plavix] 75 mg tablet 75 mg PO DAILY Qty: 90 3RF (DME) Omnipod 5 G6-G7 Intro Kt(Gen5) Cartridge See Rx Instructions .ROUTE .MEDSUPPLY Qty: 1 Rx Instructions: As directed Leqvio 284 mg/1.5 mL syringe 284 mg SQ [id number] Qty: 1.5 2RF (DME) Dexcom G7 Sensor Device See Rx Instructions .ROUTE .COMPLEX Qty: 9 0RF Dose Instruction: APPLY AND WEAR 1 SENSOR FOR 10 DAYS AND THEN CHANGE Rx Instructions: APPLY AND WEAR 1 SENSOR FOR 10 DAYS AND THEN CHANGE gabapentin 600 mg tablet 300 mg PO TID 30 Days Qty: 45 1RF rosuvastatin [Crestor] 10 mg tablet 10 mg PO DAILY Qty: 30 5RF (DME) Omnipod 5 G6-G7 Pods (Gen 5) Cartridge See Rx Instructions .ROUTE .COMPLEX Qty: 5 6RF Dose Instruction: USE DIRECTED Rx Instructions: USE DIRECTED omeprazole 20 mg capsule,delayed release(DR/EC) 20 mg PO DAILY 90 Days Qty: 90 2RF sertraline 50 mg tablet 50 mg PO DAILY 90 Days Qty: 90 2RF insulin lispro [Admelog U-100 Insulin lispro] 100 unit/mL solution 1 unit SQ DIRECTED Rx Instructions: Max dose 100 units daily, to use in the OmniPod ondansetron 4 mg tablet,disintegrating 4 mg PO Q8HP PRN (Reason: nausea and vomiting) metoprolol succinate 25 mg Tablet Extended Release 24 Hr 25 mg PO DAILY 30 Days Qty: 30 0RF fluticasone propion-salmeterol 250-50 mcg/dose Blister With Device 1 inh inhalation BIDRT Qty: 60 0RF bumetanide 1 mg Tablet 1 mg PO BIDL 30 Days Qty: 60 0RF hydralazine 25 mg Tablet 25 mg PO TID 30 Days Qty: 90 0RF spironolactone 25 mg Tablet 25 mg PO DAILY 30 Days Qty: 30 0RF isosorbide dinitrate 20 mg Tablet 20 mg PO TID 30 Days Qty: 90 0RF insulin glargine [Lantus Solostar U-100 Insulin] 100 unit/mL (3 mL) Insulin Pen 20 unit SQ HS Qty: 15 0RF Referrals Follow up/Referrals: Lima Shannon APRN [Primary Care Provider, Family Practice] - See instructions Print Language Print Language: Tajik Discharge ED Provider: Christopher Rosario JR General Adult HPI <Whitney Sheldon (ED), GILMA - Last Filed: 04/24/25 15:12> General Chief complaint: Eye Problems Stated complaint: unable to see, sudden onset, headache Time Seen by Provider: 04/24/25 13:23 History of Present Illness HPI narrative: 54-year-old female presents to the ED today for complaint of vision changes that started last night where seeing lights . She says she has a mild headache with her vision changes and light sensitivity. She says all she sees now is light and black squiggly lines. She has no pain otherwise. No nausea, vomiting or diarrhea. No pain. She does have history of diabetes with an insulin pump. She does have history of CHF, CKD, peripheral neuropathy, CAD, gastroparesis and stroke. Related Data Home Medications ?Medication ?Instructions ?Recorded ?Confirmed lancets 28 gauge #100 ea 06/03/24 04/08/25 insulin pump cartridge,auto #1 ea 09/10/24 04/08/25 dose,BT,G6/G7 with controller subcutaneous (Omnipod 5 G6-G7 Intro Kit(Gen 5) subcutaneous cartridge and controller) insulin lispro 100 unit/mL 1 unit SQ DIRECTED 03/0204/08/25 subcutaneous solution (Admelog U-100 Insulin lispro) ondansetron 4 mg disintegrating 4 mg PO Q8HP PRN nause a and 03/02/25 04/08/25 tablet vomiting Previous Rx's ?Medication ?Instructions ?Recorded 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,water treatment technician,cont #1 ea 06/01/24 (Dexcom G7 Sports Team Manager) clopidogrel 75 mg tablet (Plavix) 75 mg PO DAILY #90 t abs 06/03/24 rosuvastatin 10 mg tablet (Crestor) 10 mg PO DAILY #30 tabs 12/08/24 inclisiran 284 mg/1.5 mL 284 mg (1.5 mL) SQ [id number] 2 12/14/24 subcutaneous syringe (Leqvio) doses #1.5 mL metoprolol succinate 25 mg 25 mg PO DAILY 30 days #30 tabs 03/04/25 tablet,extended release 24 hr insulin pump cart,auto,BT,G6/7 #5 ea 03/11/25 (Omnipod 5 G6-G7 Pods (Gen 5) subcutaneous cartridge) fluticasone propionate 50 1 spray intranasal DAILY #16 grams 03/18/25 mcg/actuation nasal spray,suspension (Flonase Allergy Relief) bumetanide 1 mg tablet 1 mg PO BIDL 30 days #60 tab s 03/26/25 fluticasone 250 mcg-salmeterol 50 1 inh inhalation BID RT #60 ea 03/26/25 mcg/dose blistr powdr for inhalation hydralazine 25 mg tablet 25 mg PO TID 30 days #90 tab s 03/26/25 insulin glargine 100 unit/mL (3 20 unit (0.2 mL) SQ HS #15 mL 03/26/25 mL) subcutaneous pen (Lantus Solostar U-100 Insulin) isosorbide dinitrate 20 mg tablet 20 mg PO TID 30 days #90 tabs 03/26/25 spironolactone 25 mg tablet 25 mg PO DAILY 30 days #30 tabs 03/26/25 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 sensor (Dexcom G7 #9 ea 04/08/25 Sensor device) gabapentin 600 mg tablet 300 mg (1/2 x 600 mg) PO TID 30 04/08/25 days #45 tabs omeprazole 20 mg capsule,delayed 20 mg PO DAILY 3 yaw hs #90 caps 04/12/25 release sertraline 50 mg tablet 50 mg PO DAILY 3 months #90 tabs 04/12/25 Allergies Allergy/AdvReac Type Severity Reaction Status Date / Time atorvastatin Allergy Severe lowers Verified 04/08/25 14:01 blood pressure aspirin (ASPIRIN) Allergy Intermediate I-HIVES Verified 04/08/25 14:01 latex (LATEX) Allergy Unknown RASH, HIVES Verified 04/08/25 14:01 midodrine AdvReac Severe Unknown Verified 04/08/25 14:01 allergy reaction PFS <Whitney Sheldon (ED), OVER SHORT AND DAMAGE CLERK - Last Filed: 04/24/25 15:12> [facility] Disclaimer: The information contained in this section may have been updated after the patient was seen, as this information can be updated by other users. 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 Anxiety CKD (chronic kidney disease) stage 4, GFR 15-29 ml/min Breast cancer screening Colon cancer screening Diabetic peripheral neuropathy Kidney insufficiency HLD (hyperlipidemia) WARREN (dyspnea on exertion) CAD (coronary artery disease) PTSD (post-traumatic stress disorder) History of type 1 diabetes mellitus Gastroparesis diabeticorum History of gastroesophageal reflux (GERD) History of stroke Cholecystectomy planned Hypotension Angina pectoris Surgical History History of heart surgery Hx of appendectomy Family History Other Family history non-contributory Social History Smoking Status: Never smoker alcohol intake: never substance use type: denies use current occupational status: unemployed Travel in the last 8 weeks?: None Have you lived/traveled outside US in past 30 days?: No Contact w/someone who lives/traveled outside US past 30 days?: No Exposure to someone with infectious disease in past 14 days?: No Do you have a fever (greater than 100.4 F or 38 C)?: No Have you tested positive for COVID-19?: No Exposed to someone with COVID-19 in past 14 days?: No Do you have a sore throat?: No Do you have a cough?: No Do you have any weakness?: No Do you have any diarrhea?: No Are you experiencing any unusual bleeding?: No Do you have any muscle aches/pain?: No Do you have any abdominal pain?: No Are you experiencing loss of taste or smell?: No Other 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 Have you received the Flu Vaccine for this season: No Have you received the Pneumonia Vaccine: No <Whiteny Kilzoe (ED), OVER SHORT AND DAMAGE CLERK - Last Filed: 04/24/25 15:12> ROS Obtained: Yes Systems reviewed as appropriate & no additional complaints except as documented Constitutional Constitutional: Reports as per HPI Physical Exam <Whitney Karynzoe (ED), OVER SHORT AND DAMAGE CLERK - Last Filed: 04/24/25 15:12> General General appearance: alert and in no apparent distress Head Head exam: atraumatic and normocephalic Eye Eye exam: Present PERRL and EOMI ENT ENT exam: Present normal oropharynx and mucous membranes moist Neck Neck exam: Present full ROM and trachea midline Respiratory Respiratory exam: Present normal lung sounds bilaterally Cardiovascular Cardiovascular exam: Present regular rate, normal rhythm, normal heart sounds, +S1 and +S2 Extremities Exam Extremities exam: Present full ROM and normal capillary refill Neurological Exam Neurological exam: Present alert and oriented X3 Skin Skin exam: Present warm and dry Medical Decision Making <Whitney Karynzoe (ED), OVER SHORT AND DAMAGE CLERK - Last Filed: 04/24/25 15:12> Medical Records Screening: Per USPSTF and CDC recommendations, given the prevalence of disease in our region, it is our hospital?s policy to screen for HIV and viral Hepatitis for all patients aged 18 and over and those with ongoing risk factors. Nick Inquiry Pt receiving controlled substance: No Nick was queried for this patient: No Vital Signs: 04/24/25 13:24 04/24/25 13:24 04/24/25 13:30 Temperature 98.2 F 98.2 F Temperature Source Oral Oral Pulse Rate 88 88 Pulse Rate [Right] 88 Respiratory Rate 16 16 Blood Pressure 178/105 H 178/105 H Blood Pressure [Right Arm] 178/105 H Blood Pressure Mean [Right Arm] 129 Blood Pressure Source Automatic Cuff Blood Pressure Source [Right Arm] Automatic Cuff Blood Pressure Position Supine Blood Pressure Position [Right Arm] Supine 02 Sat by Pulse Oximetry 98 98 100 Oxygen Delivery Method Room Air Room Air Room Air Lab Data Lab Results 04/24/25 14:20: WBC 8.3, RBC 4.27, Hgb 12.4, Hct 36.0 L, MCV 84.3, MCH 29.0, MCHC 34.4, RDW 13.4, Plt Count 233, MPV 10.0, Neut % (Auto) 75.7, Lymph % (Auto) 16.3, [place] % (Auto) 5.1, Eos % (Auto) 2.1, Baso % (Auto) 0.6, Neut # (Auto) 6.3, Lymph # (Auto) 1.4, [place] # (Auto) 0.4, Eos # (Auto) 0.2, Baso # (Auto) 0.1, ESR 80 H, Sodium 139, Potassium 4.0, Chloride 104, Carbon Dioxide 26, Anion Gap 13.0, BUN 22 H, Creatinine 1.60 H, Estimated Creat Clear 43, Estimated GFR 33 L, Est GFR ( Amer) 40 L, Glucose 140 H, Calcium 9.9, Total Bilirubin 0.5, AST 27, ALT 17, Alkaline Phosphatase 62, Total Protein 8.1 D, Albumin 4.7, G lobulin 3.4 H, Albumin/Globulin Ratio 1.4 04/24/25 14:20 04/24/25 14:20 Orders (Tests/Meds): ED MEDICATIONS Discontinued Medications Generic Name Dose Route Start Last Admin Trade Name Freq PRN Reason Stop Dose Admin Acetaminophen 1,000 mg 04/24/25 13:34 Acetaminophen 1,000mg/100ml Vial IV 04/24/25 13:35 ONCE ONE Acetaminophen 1,000 mg 04/24/25 14:45 04/24/25 14:58 Acetaminophen 500mg Tab PO 04/24/25 14:46 1,000 mg ONCE ONE Administration Dexamethasone Sodium Phosphate 8 mg 04/24/25 13:34 Dexamethasone 4mg/Ml 1ml Vial IV 04/24/25 13:35 ONCE ONE Dexamethasone Sodium Phosphate 8 mg 04/24/25 14:45 04/24/25 15:03 Dexamethasone 4mg/Ml 1ml Vial IM 04/24/25 14:46 8 mg ONCE ONE Administration Diphenhydramine HCl 25 mg 04/24/25 13:34 Diphenhydramine 50mg/Ml Vial IV 04/24/25 13:35 ONCE ONE Diphenhydramine HCl 25 mg 04/24/25 14:45 04/24/25 14:59 Diphenhydramine 50mg/Ml Vial IM 04/24/25 14:46 25 mg ONCE ONE Administration Sodium Chloride 1,000 mls @ 999 mls/hr 04/24/25 13:34 Sod Chlor 0.9% 1000ml Bag IV 04/24/25 14:34 .Q1H1M ONE Prochlorperazine Edisylate 5 mg 04/24/25 13:34 Prochlorperazine 10mg/2ml Vial IV 04/24/25 13:35 ONCE ONE Prochlorperazine Edisylate 5 mg 04/24/25 14:45 04/24/25 15:01 Prochlorperazine 10mg/2ml Vial IM 04/24/25 14:46 5 mg ONCE ONE Administration ORDERS Category Date Time Status CT head/brain wo con Stat Cat Scan 04/24/25 13:32 Ordered CBC [Complete Blood Count Auto Diff] Stat Lab 04/24/25 14:20 Completed Comprehensive Metabolic Panel Stat Lab 04/24/25 14:20 Completed Erythrocyte Sedimentation Rate Stat Lab 04/24/25 14:20 Completed HIV Combo Stat Lab 04/24/25 14:20 Received Hepatitis C Ab Qual. W/ RFX Stat Lab 04/24/25 14:20 Received Medical Decision Narrative: patient is a 54-year-old female presenting to the emergency department for evaluation of vision changes, seeing light and squiggly lines. Patient is hemodynamically stable and nontoxic-appearing upon arrival, afebrile. Differential diagnosis includes migraine, retinal artery occlusion, retinal detachment, vitreous hemorrhage, stroke, among others. Workup will be conducted with hematologic labs, specific imaging, provocative tests. Initial inventions include crystalloid bolus, analgesics. Will do CT scan angio head and neck and plain CT of the head. Discussed with Dr. Rosario. 1440 discussed with patient that she does not want contrast. Patient and I discussed that most of the scans we need need contrast for her vision changes and loss. She is trying to decide what she wants to do and if she needs transferred she is trying to decide if she wants to go to [place] or [place]. She needs a dilated eye exam because she has vision changes.Dr Rosario did ultrasound to rule out retinal detachment. Patients GFR was 33, she does not want the contrast despite the risks. Dr Rosario and I both discussed this with her. We will get the CT noncontrast and transfer for dilated eye exam and MRI. Talked to Dr. Pineda who accepted patient in transfer to [facility] for ophthalmology consult and likely MRI. <Christopher Rosario JR, DO - Last Filed: 04/24/25 15:09> Vital Signs: 04/24/25 13:24 04/24/25 13:24 04/24/25 13:30 Temperature 98.2 F 98.2 F Temperature Source Oral Oral Pulse Rate 88 88 Pulse Rate [Right] 88 Respiratory Rate 16 16 Blood Pressure 178/105 H 178/105 H Blood Pressure [Right Arm] 178/105 H Blood Pressure Mean [Right Arm] 129 Blood Pressure Source Automatic Cuff Blood Pressure Source [Right Arm] Automatic Cuff Blood Pressure Position Supine Blood Pressure Position [Right Arm] Supine 02 Sat by Pulse Oximetry 98 98 100 Oxygen Delivery Method Room Air Room Air Room Air Lab Data Lab Results 04/24/25 14:20: WBC 8.3, RBC 4.27, Hgb 12.4, Hct 36.0 L, MCV 84.3, MCH 29.0, MCHC 34.4, RDW 13.4, Plt Count 233, MPV 10.0, Neut % (Auto) 75.7, Lymph % (Auto) 16.3, [place] % (Auto) 5.1, Eos % (Auto) 2.1, Baso % (Auto) 0.6, Neut # (Auto) 6.3, Lymph # (Auto) 1.4, [place] # (Auto) 0.4, Eos # (Auto) 0.2, Baso # (Auto) 0.1, ESR 80 H, Sodium 139, Potassium 4.0, Chloride 104, Carbon Dioxide 26, Anion Gap 13.0, BUN 22 H, Creatinine 1.60 H, Estimated Creat Clear 43, Estimated GFR 33 L, Est GFR ( Amer) 40 L, Glucose 140 H, Calcium 9.9, Total Bilirubin 0.5, AST 27, ALT 17, Alkaline Phosphatase 62, Total Protein 8.1 D, Albumin 4.7, G lobulin 3.4 H, Albumin/Globulin Ratio 1.4 Orders (Tests/Meds): ED MEDICATIONS Discontinued Medications Generic Name Dose Route Start Last Admin Trade Name Freq PRN Reason Stop Dose Admin Acetaminophen 1,000 mg 04/24/25 13:34 Acetaminophen 1,000mg/100ml Vial IV 04/24/25 13:35 ONCE ONE Acetaminophen 1,000 mg 04/24/25 14:45 04/24/25 14:58 Acetaminophen 500mg Tab PO 04/24/25 14:46 1,000 mg ONCE ONE Administration Dexamethasone Sodium Phosphate 8 mg 04/24/25 13:34 Dexamethasone 4mg/Ml 1ml Vial IV 04/24/25 13:35 ONCE ONE Dexamethasone Sodium Phosphate 8 mg 04/24/25 14:45 04/24/25 15:03 Dexamethasone 4mg/Ml 1ml Vial IM 04/24/25 14:46 8 mg ONCE ONE Administration Diphenhydramine HCl 25 mg 04/24/25 13:34 Diphenhydramine 50mg/Ml Vial IV 04/24/25 13:35 ONCE ONE Diphenhydramine HCl 25 mg 04/24/25 14:45 04/24/25 14:59 Diphenhydramine 50mg/Ml Vial IM 04/24/25 14:46 25 mg ONCE ONE Administration Sodium Chloride 1,000 mls @ 999 mls/hr 04/24/25 13:34 Sod Chlor 0.9% 1000ml Bag IV 04/24/25 14:34 .Q1H1M ONE Prochlorperazine Edisylate 5 mg 04/24/25 13:34 Prochlorperazine 10mg/2ml Vial IV 04/24/25 13:35 ONCE ONE Prochlorperazine Edisylate 5 mg 04/24/25 14:45 04/24/25 15:01 Prochlorperazine 10mg/2ml Vial IM 04/24/25 14:46 5 mg ONCE ONE Administration ORDERS Category Date Time Status CT head/brain wo con Stat Cat Scan 04/24/25 13:32 Ordered CBC [Complete Blood Count Auto Diff] Stat Lab 04/24/25 14:20 Completed Comprehensive Metabolic Panel Stat Lab 04/24/25 14:20 Completed Erythrocyte Sedimentation Rate Stat Lab 04/24/25 14:20 Completed HIV Combo Stat Lab 04/24/25 14:20 Received Hepatitis C Ab Qual. W/ RFX Stat Lab 04/24/25 14:20 Received US Data US Images: Other (Eyes) Findings Narrative: I performed bilateral ocular ultrasound. Discussed findings with VALENCIA. No evidence of retinal detachment. Retinal nerve diameter appears within normal limits. Low concern for retinal detachment or elevated intracranial pressure. Critical Care <Whitney Sheldon (ED), OVER SHORT AND DAMAGE CLERK - Last Filed: 04/24/25 15:12> Critical Care Time Critical Care Time: No
[2025-04-24 14:33] LABS: Hematocrit 36.0 % (37.0-47.0); Hemoglobin 12.4 g/dL (12.2-16.2); Immature Granulocytes % 0.2 %; Mean Corpuscular HGB Conc 34.4 g/dL (31.8-35.4); Mean Corpuscular Hemoglobin 29.0 pg (27.0-31.2); Mean Corpuscular Volume 84.3 fl (81-99); Nucleated Red Blood Cells % 0 %; Platelet Count 233 K/mm3 (142-424); Red Blood Count 4.27 M/mm3 (4.20-5.40); Red Cell Distribution Width-SD 41.2 fL; White Blood Count 8.3 K/mm3 (4.8-10.8)
[2025-04-24 14:38] LABS: Albumin Level 4.7 g/dl (3.5-5.0); Chloride 104 mmol/L (98-107); Potassium 4.0 mmoL/L (3.5-5.1); Sodium 139 mmol/L (136-145)
[2025-04-24 14:41] LABS: Alanine Aminotransferase 17 U/L (12-78); Albumin/Globulin Ratio 1.4 (1.1-1.8); Alkaline Phosphatase 62 U/L (38-126); Anion Gap 13.0 mEq/L (5-15); Aspartate Amino Transferase 27 U/L (14-36); Bilirubin,Total 0.5 mg/dl (0.2-1.3); Blood Urea Nitrogen 22 mg/dl (7-17); Calcium 9.9 mg/dl (8.4-10.2); Carbon Dioxide 26 mmol/L (22.0-30.0); Creatinine Clearance Estimated 43 mL/min (50-200); Creatinine,Serum 1.60 mg/dl (0.52-1.04); Estimated Glomerular Filt Rate 33 ml/min (>60); GFR (African American) 40 ML/MIN (>60); Globulin 3.4 g/dL (1.3-3.2); Glucose 140 mg/dl (74-100); Total Protein,Serum 8.1 g/dl (6.3-8.2)
--- NOTE | 2025-04-24 14:44 | HMH.ITSTN ---
notified ED of low gfr, ED to call back when decision is made
[2025-04-24 14:57] VITALS: BP 183/100
[2025-04-24] MEDS: ACETAMINOPHEN 500MG TAB 1000 MG PO (14:58)
[2025-04-24 15:00] VITALS: BP 142/92
[2025-04-24] MEDS: PROCHLORPERAZINE 10MG/2ML VIAL 5 MG IM (15:01)
[2025-04-24] MEDS: DEXAMETHASONE 4MG/ML 1ML VIAL 8 MG IM (15:03)
--- NOTE | 2025-04-24 15:05 | PC.NURSE ---
Called for patient transfer per Whitney. they are going to call back.
[2025-04-24 15:19] VITALS: BP 186/107; O2SAT 90
--- NOTE | 2025-04-24 15:20 | PC.NURSE ---
Called report to ZAK Powell at [facility].
--- NOTE | 2025-04-24 15:22 | PC.NURSE ---
[facility] was called about transfer to .
[2025-04-24 15:41] VITALS: BP 186/107; PULSE 84; RESP 19; TEMP 36.7; O2SAT 97
[2025-04-24 16:00] LABS: Hepatitis C Ab Qual. W/ RFX NEGATIVE (Negative)
== END 2025-04-24 15:47 | disposition other institution (70) ==
PROVIDERS: Nurse Practitioner; Emergency Provider Student in an Organized Health Care Education/Training Program; PCP Family Medicine
DX: H53.8 Other visual disturbances (principal); R51.9 Headache, unspecified; E11.9 Type 2 diabetes mellitus without complications
CPT/HCPCS: 70450; 80053; 85025; 85651; 86803; 87389; 96372; 99285; J0131; J0780; J1100; J1200